=== PATIENT | male | born 1940 | race Caucasian/White ===

== ENCOUNTER 2023-02-15 11:30 | Outpatient (CLI) | payer MEDICARE, BC, SELFPAY | END 2023-02-15 11:31 | disposition home or self-care (01) | LOC: AMB 02-22 15:14 | PROVIDERS: Visit Provider Family Medicine | DX: R41.82 Altered mental status, unspecified (principal) | CPT/HCPCS: A0425; A0427 ==

== ENCOUNTER 2023-02-15 12:11 | Inpatient (IN) | payer OTHER, SELFPAY ==
[2023-02-15] VITALS (23 sets, daily range): BP systolic 135–190; BP diastolic 71–127; PULSE 77–106; RESP 18–26; TEMP 36.5–37.1; O2SAT 86–98; BMI 36.8
--- NOTE | 2023-02-15 12:21 | CRLHL7_ITS ---
For Patients: As a result of the Century Cures Act, medical imaging exams and procedure reports are released immediately into your electronic medical record. You may view this report before your referring provider. If you have questions, please contact your health care provider. Indication: Fall, erythema, pain Technique: Right knee 2 views Comparison: November 12, 2017 Impression: Right knee arthroplasty with patellar resurfacing. No evidence of periprosthetic fracture or lucency to suggest loosening. Trace knee effusion. Mild prepatellar soft tissue swelling. Dictated by Lincoln Corea MD @ 02/15/2023 3:05:57 PM (Electronically Signed)
--- NOTE | 2023-02-15 12:22 | CRLHL7_ITS ---
For Patients: As a result of the Century Cures Act, medical imaging exams and procedure reports are released immediately into your electronic medical record. You may view this report before your referring provider. If you have questions, please contact your health care provider. Indication: Fall, trauma. Technique: CT of the cervical spine performed without IV contrast. Comparison: CT cervical spine 09/15/2018. Findings: Prior mature postsurgical fusion changes at the C3-4 and C5-7 levels. Grade 1 anterolisthesis C4 on C5 and C7 on T1. Diffuse osteopenia. Vertebral body heights are maintained without evidence of fracture. Moderate degenerative pannus formation with chondrocalcinosis surrounding the C1-2 articulation. Moderate to severe multilevel spondylosis with varying degrees of spinal canal or neural foraminal stenosis. No foraminal stenosis most notable at the C6-7 level where there is severe spinal canal and neural foraminal stenosis. Minimal atelectasis visualized lung apices. No prevertebral soft tissue swelling Impression: 1. No acute fracture or traumatic subluxation. 2. Mature postsurgical osseous fusion at C3-4 and C5-7. 3. Moderate to severe multilevel spondylosis, most pronounced at C6-7. Please note that all CT scans at this facility use dose modulation, iterative reconstruction, and/or weight-based dosing when appropriate to reduce radiation dose to as low as reasonably achievable. Dictated by Brad Patel MD @ 02/15/2023 2:43:58 PM (Electronically Signed)
--- NOTE | 2023-02-15 12:22 | CRLHL7_ITS ---
For Patients: As a result of the Century Cures Act, medical imaging exams and procedure reports are released immediately into your electronic medical record. You may view this report before your referring provider. If you have questions, please contact your health care provider. Indication : Fall. Technique : CT of the brain without intravenous contrast. Comparison: CT head 09/15/2018. Findings: Motion artifact. No acute blurring of the corona-white differentiation. There is no intracranial hemorrhage. The ventricles are proportionate to the cerebral sulci. The 4th ventricle is midline. Basal cisterns appear patent. No abnormal extra-axial fluid collection identified. Mild to moderate parenchymal volume loss. There is Modic patchy periventricular hypodensity, favored to represent chronic ischemic microvascular disease. There is no intracranial mass, mass effect or midline shift identified. No depressed calvarial fracture. Moderate superficial scalp hematoma near the vertex. Impression: 1. No acute intracranial process. 2. Mild to moderate chronic ischemic microvascular disease. 3. Moderate superficial scalp hematoma near the vertex. Please note that all CT scans at this facility use dose modulation, iterative reconstruction, and/or weight-based dosing when appropriate to reduce radiation dose to as low as reasonably achievable. Dictated by Brad Patel MD @ 02/15/2023 2:38:18 PM (Electronically Signed)
--- NOTE | 2023-02-15 12:23 | CRLHL7_ITS ---
For Patients: As a result of the Century Cures Act, medical imaging exams and procedure reports are released immediately into your electronic medical record. You may view this report before your referring provider. If you have questions, please contact your health care provider. INDICATION: fall, weakness, prolonged downtime TECHNIQUE: Chest 1 views. COMPARISON: July 23, 2020 IMPRESSION: Cardiovascular and mediastinum: Stable mild cardiomegaly. Lungs and pleural spaces: Mild central vascular congestion and interstitial prominence suspicious for interstitial edema. Patchy bibasilar opacities favor atelectasis. No sign of pleural effusion. No pneumothorax. Bones and soft tissues: Bilateral shoulder arthroplasties. Dictated by Lincoln Corea MD @ 02/15/2023 3:03:56 PM (Electronically Signed)
[2023-02-15 12:47] LABS: HCO3 VBG 29 mmol/L (21-28); PCO2 VBG 45 mmHG (40-50); PO2 VBG 29.7 mmHG (25-47); pH VBG 7.415 (7.32-7.43)
[2023-02-15 12:49] LABS: Lactate* 2.1 mmol/L (0.5-1.9)
[2023-02-15 12:53] LABS: Basophils Percent Auto 0.2 % (0.0-3.0); Eosinophils Percent Auto 0.1 % (0.0-7.0); Hemoglobin* 16.5 gm/dL (13.5-17.5); Immature Granulocytes Pct Auto 0.2 %; Lymphocytes Percent Auto 4.8 % (20-44); Mean Corpuscular HGB Conc 34 gm/dL (32-36); Mean Corpuscular Hemoglobin 29 pg (26-34); Mean Corpuscular Volume 87 fL (80-100); Monocytes Percent Auto 7.2 % (0.0-11.0); Neutrophils Percent Auto 87.5 % (42.0-72.0); Platelet Count* 187 K/uL (140-440); RDW Coefficient of Variation % 13.3 % (11.5-15.5); Red Blood Count 5.62 m/uL (4.30-5.90); White Blood Count* 18.26 K/uL (4.50-11.00)
[2023-02-15 12:59] LABS: Slide Review Reflex No
--- NOTE | 2023-02-15 13:03 | ED.GENADULT ---
HPI - General Adult General Chief complaint: Fall/Minor Trauma Stated complaint: fell Time Seen by Provider: 02/15/23 12:20 History of Present Illness HPI narrative: found down by daughter this AM. last known well 48 hours ago. daughter feels that something happened prior to the fall. found in bathroom on floor. 82-year-old man presenting to the emergency department via EMS red TTA after being found down in his bathroom with the bathroom door lying on him neck at an unusual angle. Was alert. He was found in feces and urine. Last known well was 36-48 hours ago. Mr. Zamora has limited recollection of the events around this fall. EMS placed on some oxygen via nasal cannula for oxygen sats I believe around 90. He is not complaining of any pain at this time. He is arrives C-collar. Supporting his own airway and fully alert. Daughter arrives and notes how the home seemed rather disheveled as though something had been occurring prior to this fall/downtime. Related Data Home Medications Medication Instructions Recorded Confirmed amlodipine 5 mg tablet 5 mg PO DAILY 02/15/23 02/20/23 duloxetine 60 mg capsule,delayed 60 mg PO DAILY 02/15/23 02/20/23 release (Cymbalta) finasteride 5 mg tablet 5 mg PO DAILY 02/15/23 02/20/23 pantoprazole 40 mg tablet,delayed 40 mg PO DAILY 02/15/23 02/20/23 release tamsulosin 0.4 mg capsule (Flomax) 0.8 mg PO HS 02/15/23 02/20/23 acetaminophen 500 mg capsule 500 mg PO Q8H PRN 02/20/23 02/20/23 aspirin 81 mg chewable tablet 81 mg PO DAILY 02/20/23 02/20/23 (Children's Aspirin) carboxymethylcellulose sodium 0.5 1 drp ophthalmic (eye) QID PRN 02/20/23 02/20/23 % eye drops in a dropperette (Refresh Plus) clopidogrel 75 mg tablet 75 mg PO DAILY 02/20/23 02/20/23 mupirocin 2 % topical ointment 1 applic topical BID 02/20/23 02/20/23 potassium chloride 10 mEq 10 meq PO DAILY 02/20/23 02/20/23 capsule,extended release rosuvastatin 20 mg tablet 20 mg PO HS 02/20/23 02/20/23 sennosides 8.6 mg-docusate sodium 2 tab PO DAILY PRN Constipation 02/20/23 02/20/23 50 mg tablet (Stool Softener-Laxative) Previous Rx's Medication Instructions Recorded lisinopril 10 mg tablet 10 mg PO DAILY #30 tabs 02/25/23 lorazepam 0.5 mg tablet (Ativan) 0.5 mg PO QID PRN #30 tabs 02/25/23 Allergies Allergy/AdvReac Type Severity Reaction Status Date / Time No Known Drug Allergies Allergy Verified 02/20/23 20:48 Review of Systems Status of ROS: Reports: 6 or more systems reviewed and unremarkable except as noted in History and below [facility] Medical History (Updated 02/27/23 @ 00:06 by Background Daemon) Fall ?W19.XXXA - Unspecified fall, initial encounter (ICD-10) Hypertension ?I10 - Essential (primary) hypertension (ICD-10) Dementia ?F03.90 - Unspecified dementia, unspecified severity, without behavioral disturbance, psychotic disturbance, mood disturbance, and anxiety (ICD-10) Delirium ?R41.0 - Disorientation, unspecified (ICD-10) History of leukocytosis ?Z86.2 - Personal history of diseases of the blood and blood-forming organs and certain disorders involving the immune mechanism (ICD-10) Spondylolisthesis at L4-L5 level ?M43.16 - Spondylolisthesis, lumbar region (ICD-10) Acute delirium ?R41.0 - Disorientation, unspecified (ICD-10) History of falling ?Z91.81 - History of falling (ICD-10) Gait instability ?R26.81 - Unsteadiness on feet (ICD-10) Muscle weakness ?M62.81 - Muscle weakness (generalized) (ICD-10) Obstructive sleep apnea ?G47.33 - Obstructive sleep apnea (adult) (pediatric) (ICD-10) Tobacco use disorder ?F17.200 - Nicotine dependence, unspecified, uncomplicated (ICD-10) Thyroid nodule ?E04.1 - Nontoxic single thyroid nodule (ICD-10) Shoulder pain ?M25.519 - Pain in unspecified shoulder (ICD-10) Osteoarthritis of knees, bilateral ?M17.0 - Bilateral primary osteoarthritis of knee (ICD-10) Morbid obesity ?E66.01 - Morbid (severe) obesity due to excess calories (ICD-10) Iron deficiency anemia ?D50.9 - Iron deficiency anemia, unspecified (ICD-10) Impaired fasting blood sugar ?R73.01 - Impaired fasting glucose (ICD-10) Benign prostatic hyperplasia with lower urinary tract symptoms ?N40.1 - Benign prostatic hyperplasia with lower urinary tract symptoms (ICD-10) Essential hypertension ?I10 - Essential (primary) hypertension (ICD-10) Gastroesophageal reflux disease ?K21.9 - Gastro-esophageal reflux disease without esophagitis (ICD-10) Major depressive disorder ?F32.9 - Major depressive disorder, single episode, unspecified (ICD-10) Surgical History Status post left knee replacement ?Z96.652 - Presence of left artificial knee joint (ICD-10) S/P cervical spinal fusion ?Z98.1 - Arthrodesis status (ICD-10) Family History Brother Diabetes Heart disease Mother Diabetes Polio Father Polio Social History (Updated 02/21/23 @ 10:21 by Prince Oliveira MD) Narrative: Retired. more than 40 years ago. Lives alone. DNR/DNI resuscitation status. POA: Ludivina (daughter), , and Rubi (daughter), . Living independently until hospitalization earlier this week when he was transferred to [facility]. What is your current living situation?: I presently have a place to live Problems where you live: no known problems Problems where you live details: n/a In the past 12 months, utilities in danger of being shut off: no In the past 12 mos, have been you worried that your food would run out before you had money to buy more?: never true In the past 12 mos, the food you bought just didn't last and you didn't have money to buy more?: never true Highest level of school completed/degree received: high school graduate Smoking Status: Former smoker Do you use any of these nicotine containing products: None Second hand tobacco smoke exposure: No How often do you have a drink containing alcohol: 2-4 times a month How many standard drinks containing alcohol do you have on a typical day: 1 or 2 How often do you have six or more drinks on one occasion: Never AUDIT-C Alcohol total score: 2 Non-prescribed substance use: denies use Caffeine: Yes How often does anyone, including family, friends and others, physically hurt you: never How often does anyone, including family, friends and others, insult or talk down to you: never How often does anyone, including family, friends and others, threaten you with harm: never How often does anyone, including family, friends and others, scream or curse at you: never service: Yes Exam Narrative: Exam Narrative: GCS of 15. Is pleasant. Laughs appropriately to my jokes. Cranial nerves 2-12 look to be intact. Oral mucosa and lips are quite dry. I do not see trauma here. Head appears to be atraumatic. Neck is again C collared nontender to palpation through the collar. He is moving all extremities although right leg seems generally a little weaker than the others. There is no pain to palpation about the shoulder the clavicles. There is a patch of erythematous/irritated skin irregularly-shaped about 2 in in maximal diameter at the posterior right axilla. There is some remote subtle bruising small over the anterior abdomen. Is skin is stained with feces anteriorly. Examination of the back is without apparent tenderness. Looks to be evolving AA pressure ulcer stage I at the upper gluteal cleft. Some scarring in this area as well. Generally the back buttock are faintly erythematous consistent with the moisture scattered dried feculent material, smell strongly of urine across this area. Skin on the lower extremities with bilateral knee abrasions left greater than right. Right-side mid line surgical scar on the knee. No effusion. He has numerous contusions over his anterior shins right greater than left. Moderately tender to palpation about the right knee and upper tibia. Legs with good strength to resisted plantar flexion and dorsiflexion at the ankle. Raises left leg without minor difficulty.. Right leg a seems to have more difficulty maintaining. Heart is in a regular rate and rhythm. Distant. Lungs appear to be clear. He is breathing easily. Abdomen is soft overweight and nontender. No instability to pelvic pressure anteriorly. Generally stiff in movements. Const: Vital Signs, click to edit/add: Vital Signs - 24 hr 02/15/23 12:21 02/15/23 12:31 02/15/23 13:27 Temperature 97.8 F Pulse Rate 77 Pulse Rate [Right Pulse Oximeter] 80 Respiratory Rate 18 Blood Pressure 190/104 H Blood Pressure [Ri ght Upper Arm] 187/127 H Pulse Oximetry 97 98 86 L Oxygen Delivery Me thod Room Air Oxygen Flow Rate 02/15/23 13:28 02/15/23 13:30 02/15/23 13:45 Temperature Pulse Rate 88 87 83 Pulse Rate [Right Pulse Oximeter] Respiratory Rate Blood Pressure Blood Pressure [Ri ght Upper Arm] Pulse Oximetry 95 96 97 Oxygen Delivery Me thod Oxygen Flow Rate 2 2 2 02/15/23 14:00 02/15/23 14:04 02/15/23 14:05 Temperature Pulse Rate 84 86 80 Pulse Rate [Right Pulse Oximeter] Respiratory Rate 26 H Blood Pressure 171/107 H 171/107 H Blood Pressure [Ri ght Upper Arm] Pulse Oximetry 94 96 97 Oxygen Delivery Me thod Oxygen Flow Rate 2 02/15/23 14:15 02/15/23 14:30 02/15/23 14:32 Temperature Pulse Rate 82 80 87 Pulse Rate [Right Pulse Oximeter] Respiratory Rate Blood Pressure 186/110 H Blood Pressure [Ri ght Upper Arm] Pulse Oximetry 97 92 94 Oxygen Delivery Me thod Oxygen Flow Rate 02/15/23 15:03 Temperature Pulse Rate Pulse Rate [Right Pulse Oximeter] Respiratory Rate 24 Blood Pressure 181/109 H Blood Pressure [Ri ght Upper Arm] Pulse Oximetry Oxygen Delivery Me thod Oxygen Flow Rate Documenting provider has reviewed patient's vital signs: yes Course Course Hospital Course: 82-year-old male admitted to the hospital after being found down at home. He was suspected to be down at home for up to 2 days prior to admission. He was found down in the bathroom with the shower door lying on top of him. He was encephalopathic at the time. He is brought to the emergency room where a number of problems were identified. 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 This was thought to be a probable cause of his fall. Is also thought to be causing some apraxia with [id number] which he was unable to do on admission but now is able to do at the time of discharge. Also thought to be contributing to his inability to walk. He is felt to have chronic gait instability and chronic weakness and deconditioning. This had gotten worse with his stroke and being found down for 2 days. He had rhabdomyolysis without subsequent acute kidney injury. He was managed with aggressive fluid resuscitation and did well with this. He was found to have metabolic encephalopathy at the time of admission. This was thought to be due to his stroke, possible concussion, underlying dementia, acute illness. This improved during his hospital stay though he continued to have some intermittent delirium and ongoing evidence of dementia. He has bruises and abrasions from his fall as well as likely from previous falls over the past couple weeks. Abrasions over his knees were treated for cellulitis with topical mupirocin and oral cephalexin and wound care He had urinary retention with 700 mL of retained urine on admission. Initially a catheter was placed and then removed. Has been able to void since then. He has had intermittent delirium during his hospital stay. This is generally been manageable with redirection and family and nursing support. Vital Signs Vital signs: Initial Vital Signs Pulse Oximetry 97 02/15/23 12:21 Vital Signs Pulse Oximetry 97 02/15/23 12:21 Temperature 98.1 F 02/19/23 09:20 Pulse Rate 80 02/19/23 09:20 Respiratory Rate 20 02/19/23 09:20 Blood Pressure 190/94 H 02/19/23 09:20 Pulse Oximetry 97 02/19/23 07:30 Oxygen Delivery Method Room Air 02/19/23 07:30 Oxygen Flow Rate 2 02/15/23 14:00 Medical Decision Making MDM Narrative Medical decision making narrative: Surely dehydrated. This appears to have been a fall event of unclear etiology. CT in head and neck. Will check for potential cardiac etiology. Evaluating renal function. For other sources of infection and lungs and urine. Belly does appear to be nontender. At this point I am wondering if the weakness demonstrated in the right leg which initial evaluation seems to be pain free at least at the hip is more related to prolonged down time in the knee pain. Will be imaging the knee. Given potential duration of down time I have concern about rhabdomyolysis. At this point I would anticipate admission unless seems quite clear and can ambulate from the emergency department. Remains alert on reexamination. What I thought was initially symmetrical skull shape pink seems to be some bilateral soft tissue swelling without erythematous changes on the scalp. This is swelling more pronounced on the right lateral occipital area and is a little tender. I did review personally all the following images. CT of head with chronic changes. X-ray of right knee is without acute bony abnormality. Chest x-ray is without infiltrate or other acute abnormality. X-ray of pelvis is without acute abnormality - postoperative changes noted. Urinary catheter placed with 700 mL obtained Pressures remain a little elevated. Lactate is elevated, urine is concentrated, white count is rather elevated over 18,000. CPK of over 6600. Has been receiving normal saline fluid resuscitation. Troponin is slightly elevated to indeterminate though I would suspect this is more due to renal stress. Anticipate this being trended. CRP quite elevated. I have discussed with hospitalist for admission. Will need further monitoring fluid resuscitation. Possibly further imaging beyond CT head and/or depending on ability to ambulate Medical Records Medical records reviewed: Yes I reviewed the patient's medical records Lab Data Lab results reviewed: Yes I reviewed the patient's lab results Labs: Lab Results 02/15/23 02/15/23 02/15/23 Range/Units 12:27 13:00 13:45 WBC 18.26 H (4.50-11.00) K/uL RBC 5.62 (4.30-5.90) m/uL Hgb 16.5 (13.5-17.5) gm/dL Hct 49.0 (37.0-53.0) % MCV 87 (80-100) fL MCH 29 (26-34) pg MCHC 34 (32-36) gm/dL RDW Coeff of Brenda 13.3 (11.5-15.5) % Plt Count 187 (140-440) K/uL Neut % (Auto) 87.5 H (42.0-72.0) % Lymph % (Auto) 4.8 L (20-44) % Caswell % (Auto) 7.2 (0.0-11.0) % Eos % (Auto) 0.1 (0.0-7.0) % Baso % (Auto) 0.2 (0.0-3.0) % Neut # (Auto) 16.00 H (1.7-7.0) K/uL Lymph # (Auto) 0.90 (0.90-2.90) K/uL Caswell # (Auto) 1.30 H (0.00-0.90) K/UL Eos # (Auto) 0.00 (0.00-0.50) K/uL Baso # (Auto) 0.00 (0.00-0.30) K/uL Abs Immat Gran (auto) 0.00 (0.00-0.30) K/uL Imm/Tot Granulo (auto) 0.2 % INR 1.19 H (0.91-1.10) APTT 33 (23-33) Seconds VBG pH 7.415 (7.32-7.43) VBG pCO2 45 (40-50) mmHG VBG pO2 29.7 (25-47) mmHG VBG HCO3 29 H (21-28) mmol/L Sodium 144 (135-149) mmol/L Potassium 3.7 (3.6-5.1) mmol/L Chloride 108 (96-114) mmol/L Carbon Dioxide 29 (20-32) mmol/L BUN 28 (7-30) mg/dL Creatinine 0.7 (0.5-1.5) mg/dL Estimated GFR 92 ml/min Glucose 144 H (60-115) mg/dL Lactate 2.1 H (0.5-1.9) mmol/L Calcium 9.6 (8.4-10.6) mg/dL Magnesium 2.1 (1.5-2.6) mg/dL Total Bilirubin 1.6 H (0.1-1.5) mg/dL Direct Bilirubin 0.2 (0.0-0.5) mg/dL AST 301 H (12-35) U/L ALT 103 H (4-50) U/L Alkaline Phosphatase 46 (40-150) U/L Total Creatine Kinase 6646 H (54-186) U/L Troponin I 0.07 H* (0.01-0.04) ng/mL C-Reactive Protein 17.1 H (0.5-1.0) mg/dL NT-Pro-B Natriuret Pep 473 pg/mL Total Protein 8.2 (6.0-8.3) g/dL Albumin 4.3 (3.3-5.0) g/dL Lipase 56 (23-300) U/L Procalcitonin 0.18 (<0.50) ng/mL Urine Color Yellow (Yellow) Urine Appearance Clear (Clear) Urine pH 6.0 (5.0-8.5) Ur Specific [place] >= 1.030 (1.000-1.030) Urine Protein 2+ A (Negative) Urine Glucose (UA) Negative (Negative) Urine Ketones Trace A (Negative) Urine Blood Trace-lysed A (Negative) Urine Nitrite Negative (Negative) Urine Bilirubin Negative (Negative) Urine Urobilinogen 0.2 (0.2-1.0) Ur Leukocyte Esterase Negative (Negative) Urine RBC 0-2 (0-2) Urine WBC 0-2 (0-5) Ur Squamous Epith Cells Few (None-Few) Urine Bacteria Few A (None) Urine Opiates Screen Negative (Negative) Ur Oxycodone Screen Negative (Negative) Urine Methadone Screen Negative (Negative) Ur Propoxyphene Screen Negative (Negative) Ur Barbiturates Screen Negative (Negative) U Tricyclic Antidepress Negative (Negative) Ur Phencyclidine Scrn Negative (Negative) Ur Amphetamines Screen Negative (Negative) U Methamphetamines Scrn Negative (Negative) U Benzodiazepines Scrn Negative (Negative) Urine Cocaine Screen Negative (Negative) U Marijuana (THC) Screen Negative (Negative) Ur Drug Screen Comment See Note Ethyl Alcohol < 0.01 L (0.01-0.03) % ECG Data Attestation: I personally reviewed and interpreted this ECG as follows: (Sinus rhythm. PACS. Rate of 85) Critical Care Time Critical Care Time Critical Care Time: Yes Attestation: The patient required my highest level preparedness to intervene emergently and I personally spent this critical care time directly and personally managing the patient. This critical care time included: Obtaining a history; Examining the patient; Pulse oximetry; Ordering and reviewing of studies; Arranging urgent treatment with development of a management plan; Evaluation of patients response to treatment; Frequent reassessment discussions with other providers. This critical care time was performed to assess and manage the high probability of imminent life-threatening deterioration that could result in multiorgan failure. It was exclusive of separate billable procedures and treating other patients and teaching time. Total Critical Care Time in Minutes: 50 Discharge Plan Discharge Clinical Impression: Closed head injury, Rhabdomyolysis, Abrasion, Fall, AMS (altered mental status) Patient Disposition: Admitted As Observation Condition: Stable Activity Level: Up with assist and Use Walker Discharge Diet: Regular
[2023-02-15] MEDS: 0.9 % SODIUM CHLORIDE 1000 ml 1,000 ML IV ×2 (13:07→15:37)
[2023-02-15 13:16] LABS: Albumin* 4.3 g/dL (3.3-5.0); Chloride* 108 mmol/L (96-114)
[2023-02-15 13:17] LABS: Potassium* 3.7 mmol/L (3.6-5.1); Sodium* 144 mmol/L (135-149)
[2023-02-15 13:19] LABS: Alkaline Phosphatase* 46 U/L (40-150); Aspartate Amino Transferase* 301 U/L (12-35); Bilirubin Direct* 0.2 mg/dL (0.0-0.5); Bilirubin Total* 1.6 mg/dL (0.1-1.5); Blood Urea Nitrogen* 28 mg/dL (7-30); Carbon Dioxide* 29 mmol/L (20-32); Creatinine* 0.7 mg/dL (0.5-1.5); Estimated Glomerular Filt Rate 92 ml/min; Lipase* 56 U/L (23-300); Total Protein* 8.2 g/dL (6.0-8.3)
[2023-02-15 13:20] LABS: Alanine Aminotransferase* 103 U/L (4-50); Calcium* 9.6 mg/dL (8.4-10.6); Glucose* 144 mg/dL (60-115); Magnesium* 2.1 mg/dL (1.5-2.6)
[2023-02-15 13:32] LABS: INR 1.19 (0.91-1.10); Prothrombin Time 15.9 Seconds
[2023-02-15 13:33] LABS: Partial Thromboplastin Time* 33 Seconds (23-33)
[2023-02-15 13:35] LABS: Procalcitonin* 0.18 ng/mL (<0.50)
[2023-02-15 13:37] LABS: C Reactive Protein* 17.1 mg/dL (0.5-1.0); Ethanol* < 0.01 % (0.01-0.03); NT Pro B Type NatriureticPept* 473 pg/mL; Troponin I* 0.07 ng/mL (0.01-0.04)
--- NOTE | 2023-02-15 13:45 | ED.NURSE ---
was wanting to use the urinal. unable to void. bladder scanner showed [address] foley aware. smith catheter was placed and 700 ml of david urine emptied from catheter bag. did feel better after this was placed. dr foley aware of trop 0.07.
[2023-02-15 13:58] LABS: Appearance Urine Clear (Clear); Bilirubin Urine Negative (Negative); Blood Urine Trace-lysed (Negative); Color Urine Yellow (Yellow); Glucose Urine Negative (Negative); Ketones Urine Trace (Negative); Leukocyte Esterase Urine Negative (Negative); Nitrite Urine Negative (Negative); Protein Urine 2+ (Negative); Specific Gravity Urine >= 1.030 (1.000-1.030); Urobilinogen Urine 0.2 (0.2-1.0)
[2023-02-15 14:10] LABS: Amphetamine Screen Urine Negative (Negative); Barbiturate Screen Urine Negative (Negative); Benzodiazepines Screen Urine Negative (Negative); Cannabinoid Screen Urine Negative (Negative); Cocaine Screen Urine Negative (Negative); Methadone Screen Urine Negative (Negative); Methamphetamines Screen Urine Negative (Negative); Opiate Screen Urine Negative (Negative); Oxycodone Screen Urine Negative (Negative); Phencyclidine Screen Urine Negative (Negative); Tricyclic Antidepressant Urine Negative (Negative)
[2023-02-15 14:12] LABS: Creatine Kinase* 6646 U/L (54-186)
[2023-02-15 14:16] LABS: Bacteria Urine Few; RBC Urine 0-2 (0-2); Squamous Epithelial Cell Urine Few (None-Few); WBC Urine 0-2 (0-5)
--- NOTE | 2023-02-15 15:43 | CRLHL7_ITS ---
For Patients: As a result of the Century Cures Act, medical imaging exams and procedure reports are released immediately into your electronic medical record. You may view this report before your referring provider. If you have questions, please contact your health care provider. INDICATION: Altered mental status. TECHNIQUE: Brain MRI without contrast. The following sequences were obtained: Sagittal T1 weighted sequence. DWI and ADC mapping sequences. Axial FLAIR and BRANNON T2 weighted sequences. COMPARISON: Head CT from 02/16/2020 FINDINGS: Punctate focus of diffusion restriction within the left mid centrum semiovale, likely an acute or subacute infarct. No recent ischemia elsewhere within the brain. No evidence of acute or chronic intracranial blood products. Patchy FLAIR hyperintensities within the supratentorial white matter and brainstem, as well as hazy ill-defined T2 hyperintensity within the bilateral cerebellar hemispheres. No mass effect or herniation. No hydrocephalus or extra-axial collections. Moderate generalized parenchymal volume loss. The pituitary gland, parasellar structures and optic chiasm are normal. All the major intracranial vascular structures demonstrate normal flow-related signal. The orbital contents are normal. No calvarial or skull base marrow replacing process. No obstructive sinus disease. Bilateral subgaleal fluid collections which may reflect 3rd spacing. IMPRESSION: 1. 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 No recent ischemia elsewhere within the brain. 2. Patchy FLAIR hyperintensities within the supratentorial white matter, brainstem and cerebellum. Differential considerations include chronic small vessel ischemic change, versus sequela of an inflammatory or demyelinating process. 3. Overall moderate generalized parenchymal volume loss. 4. Bilateral subgaleal fluid collections, which may reflect 3rd spacing. Dictated by Mal Elder MD @ 02/15/2023 6:48:09 PM (Electronically Signed)
--- NOTE | 2023-02-15 15:45 | ED.NURSE ---
c collar off. 02 off. sats staying above 94%. took water -2 glasses. iv in lac is positional. is alert and does converse. rr ~16-24.
--- NOTE | 2023-02-15 16:15 | ED.NURSE ---
has approx 150 ml of ns left in bag. went to mri on air mattress snow remover. will go directly to [facility] from [facility]ri. is alert and talking. both daughters are here and will await in his m/s room. dr zimmerman was in and has accepted him for admission.
--- NOTE | 2023-02-15 16:28 | ED.NURSE ---
report was gven to anirudh redding on m/s. will go to 249 after mri.
--- NOTE | 2023-02-15 17:45 | P.IMHP_ITS ---
Hospitalist- H&P: HPI History of Present Illness Time Seen by Provider: 16:00 Date Seen: 02/15/23 Chief complaint: AMS, amnesia, rhabomyolysis, dehydration Narrative: Ken Zamora is a 82 year old man presents via EMS after having been found by his daughter in his home on the bathroom floor around 11:00 a.m. this morning with altered mental status, covered in feces and urine. Reportedly was in his usual state of health up until about 48 hours prior to having been found in his home on the bathroom floor. Patient has no recollection of actually falling. His daughter had not heard from him for about 48 hours and thus went to check up on him in found him on the bathroom floor covered in feces and urine. She summoned EMS who brought him in promptly. He was laying on his back. The shower door was on top of him. The shower chair somehow was blocking the entrance to the bathroom. Patient does not recall any of this. Not sure how he got help to come to the hospital. Not sure how he got to the hospital. Tries to answer questions but slow to respond. He tells me he thinks he fell somewhere in the house. He is not sure if it was the bedroom. He is not sure if it was today. Tells me his knees hurt. Does not hurt anywhere else. Tells me he is weak in his knees. He tells me his memory is pretty good. He thinks he may have watch the [employer] game on Saturday but he is not sure if he did or not. Does not know who the [employer] plate. Does not remember the outcome of the game. Had a fairly resourceful assessment in the emergency department with no acute bony fractures including his knee. Creatine kinase elevated at 6600. Patient is admitted for further management and assessment. Review of Systems Status of ROS: Reports: 10 or more systems reviewed and unremarkable except as noted in History and below Narrative: Patient is slow to answer questions. Sometimes looks to his daughter, Ludivina, to help him answer questions. Daughter, Ludivina, indicates that when she walked into the patient's home, the living room was in relative disarray. The bar stools in the kitchen area were out of place. This is unusual for the patient because he likes things precisely placed in his home. The bathroom itself was in total disarray. She indicates she had been trying to calm but he went answer. She finally came over and found him as stated above. She immediately called the EMS who came promptly. He denies chest heaviness, pressure, tightness, or pain. Denies syncope or near-syncope. Denies orthostasis on the 1 hand on the other hand he is not able to sit up enough because he is so weak. Denies nausea or vomiting. Denies abdominal pain. Only pain that he has is in his knees. He is known to have ch ronic knee pain. Acknowledge E has not ate or drank for while he is not sure for how long. Denies exposure to alcohol or any other drugs. Denies palpitations or chest fluttering. Denies dyspnea, cough. Denies focal motor neurologic deficits although he states his knees are weak. Denies diarrhea or constipation. Denies dysuria, urgency, frequency, hematuria. Denies polyuria or polydipsia or polyphagia. Denies fevers, rigors, diaphoresis. As I review his medical record his weight in 2019 was listed as 129.3 kg with a BMI of 41. In 2021 his weight was listed as 121.8 kg with a BMI of 37. Patient states he was not trying to lose weight. Claims his appetite is stable. Acknowledges chronic dyspepsia which he treats with a proton pump inhibitor. Denies dysphagia or odynophagia. [facility] Medical History (Updated 02/15/23 @ 18:08 by Chandana Nelson MD) History of leukocytosis ?Z86.2 - Personal history of diseases of the blood and blood-forming organs and certain disorders involving the immune mechanism (ICD-10) Spondylolisthesis at L4-L5 level ?M43.16 - Spondylolisthesis, lumbar region (ICD-10) Acute delirium ?R41.0 - Disorientation, unspecified (ICD-10) History of falling ?Z91.81 - History of falling (ICD-10) Gait instability ?R26.81 - Unsteadiness on feet (ICD-10) Muscle weakness ?M62.81 - Muscle weakness (generalized) (ICD-10) Obstructive sleep apnea ?G47.33 - Obstructive sleep apnea (adult) (pediatric) (ICD-10) Tobacco use disorder ?F17.200 - Nicotine dependence, unspecified, uncomplicated (ICD-10) Thyroid nodule ?E04.1 - Nontoxic single thyroid nodule (ICD-10) Shoulder pain ?M25.519 - Pain in unspecified shoulder (ICD-10) Osteoarthritis of knees, bilateral ?M17.0 - Bilateral primary osteoarthritis of knee (ICD-10) Morbid obesity ?E66.01 - Morbid (severe) obesity due to excess calories (ICD-10) Iron deficiency anemia ?D50.9 - Iron deficiency anemia, unspecified (ICD-10) Impaired fasting blood sugar ?R73.01 - Impaired fasting glucose (ICD-10) Benign prostatic hyperplasia with lower urinary tract symptoms ?N40.1 - Benign prostatic hyperplasia with lower urinary tract symptoms (ICD- 10) Essential hypertension ?I10 - Essential (primary) hypertension (ICD-10) Gastroesophageal reflux disease ?K21.9 - Gastro-esophageal reflux disease without esophagitis (ICD-10) Major depressive disorder ?F32.9 - Major depressive disorder, single episode, unspecified (ICD-10) Surgical History (Updated 02/15/23 @ 17:36 by Chandana Nelson MD) Status post left knee replacement ?Z96.652 - Presence of left artificial knee joint (ICD-10) S/P cervical spinal fusion ?Z98.1 - Arthrodesis status (ICD-10) Family History (Updated 02/15/23 @ 17:38 by Chandana Nelson MD) Brother Diabetes Heart disease Mother Diabetes Polio Father Polio Social History (Updated 02/15/23 @ 17:41 by Chandana Nelson MD) Narrative: Retired. more than 40 years ago. Lives alone. DNR/DNI resuscitation status. POA: Ludivina (daughter), , and Rubi (daughter), . Smoking Status: Former smoker Do you use any of these nicotine containing products: None Second hand tobacco smoke exposure: No How often do you have a drink containing alcohol: 2-4 times a month How many standard drinks containing alcohol do you have on a typical day: 1 or 2 How often do you have six or more drinks on one occasion: Never AUDIT-C Alcohol total score: 2 Non-prescribed substance use: denies use service: Yes Meds Home Medications and Allergies Home Medications Medication Instructions Recorded Confirmed Type amlodipine 5 mg tablet 5 mg PO DAILY 02/15/23 02/15/23 History duloxetine 60 mg capsule,delayed 60 mg PO DAILY 02/15/23 02/15/23 History release (Cymbalta) finasteride 5 mg tablet 5 mg PO DAILY 02/15/23 02/15/23 History pantoprazole 40 mg tablet,delayed 40 mg PO DAILY 02/15/23 02/15/23 History release tamsulosin 0.4 mg capsule (Flomax) 0.8 mg PO HS 02/15/23 02/15/23 History Allergies Allergy/AdvReac Type Severity Reaction Status Date / Time No Known Drug Allergies Allergy Verified 02/15/23 12:34 Exam Narrative: Exam Narrative: Examine him as he is in the semi recumbent position on the exam table in the emergency department. He appears comfortable and in no acute distress. Vision and hearing are grossly normal. Very slow to respond to dialogue and questions. Sometimes looks to his daughter to help answer questions for him. Normal tympanic membranes bilaterally. Midline nasal septum. Mallampati class 4 airway. Dentition in fair repair. Buccal mucosa is dry. Does not have icterus or conjunctival injection. Extraocular muscles are intact. Pupils are equally round react to light and accommodation. Neck is supple. Midline trachea. No obvious JVD or hepatojugular reflux. Full neck. No head and neck lymphadenopathy. Lungs are fairly clear to auscultation without obvious wheezing, rhonchi, or rales. Heart tones with regular rhythm with occasional extra beat. Soft systolic murmur. No gallop or rub. Abdomen is obese with active bowel sounds, soft, nontender. No organomegaly or masses. Extremities without edema. Multiple areas of contusions and ecchymosis on the shins of both legs. Palpable pulses on dorsalis pedis and posterior tib bilaterally. Capillary refill less than 3 seconds in upper and lower extremities. Able to move upper and lower extremities. Shakes when tries to move and hold position for too long. Const: Vital Signs, click to edit/add: Vital Signs - 24 hr 02/15/23 12:21 02/15/23 12:31 02/15/23 13:27 Temperature 97.8 F Pulse Rate 77 Pulse Rate [Right Pulse Oximeter] 80 Respiratory Rate 18 Blood Pressure 190/104 H Blood Pressure [Ri ght Upper Arm] 187/127 H Pulse Oximetry 97 98 86 L Oxygen Delivery Me thod Room Air Oxygen Flow Rate 02/15/23 13:28 02/15/23 13:30 02/15/23 13:45 Temperature Pulse Rate 88 87 83 Pulse Rate [Right Pulse Oximeter] Respiratory Rate Blood Pressure Blood Pressure [Ri ght Upper Arm] Pulse Oximetry 95 96 97 Oxygen Delivery Me thod Oxygen Flow Rate 2 2 2 02/15/23 14:00 02/15/23 14:04 02/15/23 14:05 Temperature Pulse Rate 84 86 80 Pulse Rate [Right Pulse Oximeter] Respiratory Rate 26 H Blood Pressure 171/107 H 171/107 H Blood Pressure [Ri ght Upper Arm] Pulse Oximetry 94 96 97 Oxygen Delivery Me thod Oxygen Flow Rate 2 02/15/23 14:15 02/15/23 14:30 02/15/23 14:32 Temperature Pulse Rate 82 80 87 Pulse Rate [Right Pulse Oximeter] Respiratory Rate Blood Pressure 186/110 H Blood Pressure [Ri ght Upper Arm] Pulse Oximetry 97 92 94 Oxygen Delivery Me thod Oxygen Flow Rate 02/15/23 15:03 02/15/23 15:32 02/15/23 15:36 Temperature Pulse Rate 86 Pulse Rate [Right Pulse Oximeter] Respiratory Rate 24 Blood Pressure 181/109 H 163/110 H Blood Pressure [Ri ght Upper Arm] Pulse Oximetry 98 Oxygen Delivery Me thod Oxygen Flow Rate 02/15/23 15:49 02/15/23 16:00 02/15/23 16:03 Temperature Pulse Rate 84 77 83 Pulse Rate [Right Pulse Oximeter] Respiratory Rate 24 Blood Pressure 162/112 H Blood Pressure [Ri ght Upper Arm] Pulse Oximetry 94 93 96 Oxygen Delivery Me thod Oxygen Flow Rate 02/15/23 16:15 Temperature Pulse Rate 81 Pulse Rate [Right Pulse Oximeter] Respiratory Rate Blood Pressure Blood Pressure [Ri ght Upper Arm] Pulse Oximetry 96 Oxygen Delivery Me thod Oxygen Flow Rate Hospitalist - H&P: Result Labs Labs: Short CBC 02/15/23 Range/Units 12:27 WBC 18.26 H (4.50-11.00) K/uL Hgb 16.5 (13.5-17.5) gm/dL Hct 49.0 (37.0-53.0) % Plt Count 187 (140-440) K/uL BMP 02/15/23 13:00 Sodium 144 Potassium 3.7 Chloride 108 Carbon Dioxide 29 BUN 28 Creatinine 0.7 Glucose 144 H Calcium 9.6 Cardiac Enzymes 02/15/23 Range/Units 13:00 Total Creatine Kinase 6646 H (54-186) U/L Troponin I 0.07 H* (0.01-0.04) ng/mL Liver Function 02/15/23 Range/Units 13:00 Total Bilirubin 1.6 H (0.1-1.5) mg/dL Direct Bilirubin 0.2 (0.0-0.5) mg/dL AST 301 H (12-35) U/L ALT 103 H (4-50) U/L Alkaline Phosphatase 46 (40-150) U/L Albumin 4.3 (3.3-5.0) g/dL Urine 02/15/23 Range/Units 13:45 Urine Color Yellow (Yellow) Urine Appearance Clear (Clear) Urine pH 6.0 (5.0-8.5) Ur Specific [place] >= 1.030 (1.000-1.030) Urine Protein 2+ A (Negative) Urine Glucose (UA) Negative (Negative) ECG Attestation: I personally reviewed and interpreted this ECG as follows: ECG interpretation date: 02/15/23 ECG interpretation time: 16:00 Interpretation: Normal sinus rhythm with occasional APCs. Early signs of LVH by ECG criteria. Imaging Chest x-ray: Attestation: I have reviewed the pertinent imaging results. Radiologist's impression: IMPRESSION: Cardiovascular and mediastinum: Stable mild cardiomegaly. Lungs and pleural spaces: Mild central vascular congestion and interstitial prominence suspicious for interstitial edema. Patchy bibasilar opacities favor atelectasis. No sign of pleural effusion. No pneumothorax. Bones and soft tissues: Bilateral shoulder arthroplasties. Right knee x-ray: Attestation: I have reviewed the pertinent imaging results. Radiologist's impression: Impression: Right knee arthroplasty with patellar resurfacing. No evidence of periprosthetic fracture or lucency to suggest loosening. Trace knee effusion. Mild prepatellar soft tissue swelling. CT scan - head: Attestation: I have reviewed the pertinent imaging results. Radiologist's impression: Impression: 1. No acute intracranial process. 2. Mild to moderate chronic ischemic microvascular disease. 3. Moderate superficial scalp hematoma near the vertex. CT scan - cervical spine: Attestation: I have reviewed the pertinent imaging results. Radiologist's impression: Impression: 1. No acute fracture or traumatic subluxation. 2. Mature postsurgical osseous fusion at C3-4 and C5-7. 3. Moderate to severe multilevel spondylosis, most pronounced at C6-7. Assessment and Plan Assessment and plan (1) AMS (altered mental status): Status: Acute (2) Amnesia: Status: Acute (3) Closed head injury: Status: Acute (4) Rhabdomyolysis: Status: Acute (5) Abrasion: Status: Acute (6) Fall: Status: Acute (7) Dehydration: Status: Acute (8) Elevated levels of transaminase & lactic acid dehydrogenase: Status: Acute (9) Urinary retention: Problem comment: 700 ml in ED 02/15/2023 Status: Acute (10) Leukocytosis, unspecified: Problem comment: Unclear if this is acute or chronic given history of leukocytosis in the past. Status: Acute (11) Progressive cognitive dysfunction: Status: Acute (12) Progressive gait disorder: Status: Acute Plan 1. Reviewed impression with patient, daughter, Ludivina, daughter Rubi. 2. Answered their questions. 3. Recommended admission to the hospital and hydration with normal saline. Need to monitor urine output. Need to monitor renal function status given high likelihood for acute kidney failure in this setting. 4. We will recheck urinalysis with microscopic analysis in the morning. 5. Recheck CBC, lactate, various chemistry studies, venous blood gas, creatine kinase, TSH, hemoglobin A1c. 6. Telemetry, electrocardiogram, troponin I, and consider transthoracic echocardiogram. 7. Physical therapy, occupational therapy, social human services assistants consultation. 8. Anticipate patient will need transitional care services in [facility] facility at time he is ready for discharge from the hospital. Shared this with patient daughters and they are agreeable. 9. Await results of MR scan of the brain without contrast that was obtained prior to patient transfer to the floor. 10. Urine culture and blood cultures are obtained. 11. Patient and daughters are agreeable to above stated plans and recommendations.
[2023-02-15 17:57] LABS: HCO3 VBG 26 mmol/L (21-28); Lactate* 1.7 mmol/L (0.5-1.9); PCO2 VBG 39 mmHG (40-50); PO2 VBG 41.7 mmHG (25-47); pH VBG 7.437 (7.32-7.43)
[2023-02-15 18:39] LABS: Creatine Kinase* 5193 U/L (54-186)
[2023-02-15 18:40] LABS: Troponin I* 0.07 ng/mL (0.01-0.04)
[2023-02-15] MEDS: 0.9 % SODIUM CHLORIDE 1000 ml 1,000 ML 125 ML IV (20:00)
[2023-02-15] MEDS: TAMSULOSIN HCL 0.4 MG CAPSULE 0.8 MG PO (20:01)
[2023-02-15] MEDS: SODIUM CHLORIDE 0.9 % (FLUSH) 10 ML SYRINGE 5 ML IVF (20:01)
[2023-02-15] MEDS: ACETAMINOPHEN 325 MG TABLET 650 MG PO (21:45)
--- NOTE | 2023-02-15 23:38 | PC.NURSE ---
Patient admitted to the unit at 1712. A&Ox3 with periodic forgetfulness/confusion. Jha intact. Weak and fatigued. Daughters Elana and Rubi at bedside and supportive. Mepilex applied to large skin tear on L. buttock. Abrasions on bilateral knees cleaned and covered with non-adherent tefla. Multiple bruises on bilateral shins and arms/hands [employer]. Patient remained on bedrest during shift. Denies N/V/SOB/CP. PRN Tylenol administered for generalized discomfort.
[2023-02-16 03:15] VITALS: BP 120/89; PULSE 84; RESP 18; TEMP 36.9; O2SAT 89
[2023-02-16] MEDS: 0.9 % SODIUM CHLORIDE 1000 ml 1,000 ML 125 ML IV ×3 (03:15→19:17)
[2023-02-16 06:22] LABS: HCO3 VBG 26 mmol/L (21-28); Lactate* 0.9 mmol/L (0.5-1.9); PCO2 VBG 40 mmHG (40-50); PO2 VBG 52.6 mmHG (25-47); pH VBG 7.421 (7.32-7.43)
[2023-02-16 06:28] LABS: Hematocrit 42.4 % (37.0-53.0); Hemoglobin* 13.9 gm/dL (13.5-17.5); Mean Corpuscular HGB Conc 33 gm/dL (32-36); Mean Corpuscular Hemoglobin 29 pg (26-34); Mean Corpuscular Volume 89 fL (80-100); Platelet Count* 144 K/uL (140-440); Red Blood Count 4.75 m/uL (4.30-5.90); White Blood Count* 12.71 K/uL (4.50-11.00)
[2023-02-16 06:32] LABS: Slide Review Reflex No
[2023-02-16 06:42] LABS: Albumin* 3.3 g/dL (3.3-5.0); Chloride* 111 mmol/L (96-114); Sodium* 143 mmol/L (135-149)
[2023-02-16 06:43] LABS: Potassium* 3.5 mmol/L (3.6-5.1)
[2023-02-16 06:45] LABS: Alkaline Phosphatase* 37 U/L (40-150); Aspartate Amino Transferase* 182 U/L (12-35); Bilirubin Total* 1.1 mg/dL (0.1-1.5); Carbon Dioxide* 27 mmol/L (20-32); Creatinine* 0.8 mg/dL (0.5-1.5); Est. Creatinine Clearance* 62.51; Estimated Glomerular Filt Rate 88 ml/min; Total Protein* 6.6 g/dL (6.0-8.3)
[2023-02-16 06:46] LABS: Alanine Aminotransferase* 84 U/L (4-50); Blood Urea Nitrogen* 32 mg/dL (7-30); Calcium* 8.7 mg/dL (8.4-10.6); Glucose* 115 mg/dL (60-115); Lipase* 58 U/L (23-300); Magnesium* 2.2 mg/dL (1.5-2.6); Phosphorus* 3.2 mg/dL (2.5-4.5)
[2023-02-16 07:00] VITALS: BP 157/88; PULSE 82; RESP 18; TEMP 37.1; O2SAT 90
[2023-02-16 07:09] LABS: Appearance Urine Clear (Clear); Bilirubin Urine 1+ (Negative); Blood Urine 1+ (Negative); Color Urine Orange (Yellow); Glucose Urine Negative (Negative); Ketones Urine Negative (Negative); Leukocyte Esterase Urine Trace (Negative); Nitrite Urine Negative (Negative); Protein Urine 1+ (Negative); Specific Gravity Urine 1.025 (1.000-1.030); Urobilinogen Urine 0.2 (0.2-1.0)
[2023-02-16 07:27] LABS: C Reactive Protein* 12.8 mg/dL (0.5-1.0); Troponin I* 0.07 ng/mL (0.01-0.04)
[2023-02-16 07:28] LABS: RBC Urine 0-2 (0-2); WBC Urine 0-2 (0-5)
[2023-02-16] MEDS: OMEPRAZOLE 20 MG CAPSULE DR 40 MG PO (07:29)
--- NOTE | 2023-02-16 07:29 | PC.NURSE ---
Pt denies pain or discomfort. Slept soundly waking only for vitals and repositioning. Jha patent and draining. Pt is able to answer basic questions but doesn't not remember events leading up to admission.
[2023-02-16 07:38] LABS: INR 1.23 (0.91-1.10); Prothrombin Time 16.2 Seconds
[2023-02-16 08:30] LABS: Creatine Kinase* 2501 U/L (54-186)
[2023-02-16] MEDS: DULOXETINE 30 MG CAPSULE DR 60 MG PO (09:02)
[2023-02-16] MEDS: AMLODIPINE 5 MG TABLET PO (09:03)
[2023-02-16] MEDS: SODIUM CHLORIDE 0.9 % (FLUSH) 10 ML SYRINGE 5 ML IVF (09:03)
[2023-02-16] MEDS: FINASTERIDE 5 MG TABLET PO (09:03)
[2023-02-16] MEDS: ASPIRIN 81 MG TAB.CHEW PO (10:22)
[2023-02-16] MEDS: CLOPIDOGREL 75 MG TABLET PO (10:22)
[2023-02-16] MEDS: ACETAMINOPHEN 325 MG TABLET 650 MG PO ×2 (10:30→17:24)
[2023-02-16 10:42] VITALS: BP 122/59; PULSE 92; RESP 18; TEMP 37.1; O2SAT 91
--- NOTE | 2023-02-16 12:15 | P.IMPN_ITS ---
Progress Note: A&P Assessment and plan (1) AMS (altered mental status): Problem details: Altered mental status likely due to acute illness plus underlying cognitive impairment plus acute stroke Status: Acute (2) Amnesia: Problem details: Related to altered mental status and acute stroke and underlying cognitive impairment Status: Acute (3) Closed head injury: Status: Acute (4) Rhabdomyolysis: Problem details: Due to being found down for as long as 48 hours on the bathroom floor. Improving with fluid resuscitation. No obvious acute kidney injury. Status: Acute (5) Abrasion: Problem details: Multiple bruises and abrasions of different ages. According to family he had a fall 2 weeks ago as well. Status: Acute (6) Fall: Problem details: Recurrent problem. Weakness and poor balance likely contributing. Now new stroke also likely contributing. Therapy to evaluate. Probably needs rehab stay. Status: Acute (7) Dehydration: Status: Acute (8) Elevated levels of transaminase & lactic acid dehydrogenase: Status: Acute (9) Urinary retention: Problem details: 700 ml in ED 02/15/2023 Status: Acute (10) Leukocytosis, unspecified: Problem details: Unclear if this is acute or chronic given history of leukocytosis in the past. Status: Acute (11) Progressive cognitive dysfunction: Status: Acute (12) Progressive gait disorder: Status: Acute (13) Stroke: Problem details: Likely the primary trigger for the fall and subsequent confusion. Status: Acute Plan Patient is admitted the hospital for evaluation management of stroke, rhabdomyolysis, profound weakness and mental status changes. Probably needs prison facility before returning home. Time Spent With Patient Total time spent: Total time spent today is 50 minutes, 30 minutes in coordination of care discussing with patient and family ongoing evaluation management of stroke and weakness. Subjective Date Seen: 02/16/23 Interval history: 82-year-old male admitted to the hospital after being found down for at least a couple days at home. I meet with him today with his family also present. They give mostly history is the patient does not really recall the events leading up to his hospital stay. He was found down at home in the bathroom with incontinence of urine and stool. His daughter found him conscious but confused. They believe that he fell 1 or 2 times. They found furniture knocked over in other rooms of the house besides the bathroom indicating that he had fallen elsewhere. He was last seen to be doing fine 48 hours prior to admission. Evaluation on admission was notable for profound weakness, marked elevation of his CPK, mild elevation of his troponin, profound weakness, altered mental status and small stroke on MRI. Patient reports feeling fine today. He does acknowledges legs are weak. This has been a longstanding problem. Lives independently in a home with no stairs. He normally does not use assistive device to get around his home but does use a walker when he leaves the house. He continues to drive. Family indicates that prior to this episode he was having some problems with forgetfulness as well. Family is also suspecting sleep apnea. They have a talk to the [facility] about getting evaluation. This is apparently pending a few months in the future. Today he reports no chest pain or shortness of breath. He has had no fever. He is eating well. He reports generalized pain and fatigue. Exam Narrative: Exam Narrative: He is alert and appears in no distress. His speech is normal. Eyes are normal. Extraocular movements are full. Visual nolen are intact. No facial asymmetry. Intact sensation in his face. Oropharynx is normal except for small airway. Tongue is midline. Neck is supple without mass or adenopathy. Respirations are clear to auscultation. Cardiovascular: S1, S2, regular rate and rhythm. Abdomen: Bowel sounds active. Abdomen is soft without tenderness or mass. Extremities without significant edema. Upper extremity strength testing shows mild weakness of the right upper extremity with some slow in a set initiating movements. Left upper extremity has mild diffuse weakness. He has some discomfort with strength testing suggesting that his weakness might be due to the discomfort. Only mildly weaker than the right side. He is unable to do [id number] with the left and performs normally with the right. Lower extremities bilaterally weak. He has trouble following instructions for strength testing in his lower extremities. Cannot access his hip flexion. Knee flexion extension is approximately equal though bilaterally week. Ankle dorsiflexion plantar flexion is symmetric. Great toe dorsiflexion symmetric and full. Const: Vital Signs, click to edit/add: Vital Signs - 24 hr 02/15/23 12:21 02/15/23 12:31 02/15/23 13:27 Temperature 97.8 F Pulse Rate 77 Pulse Rate [Pulse Oximeter] Pulse Rate [Right Pulse Oximeter] 80 Respiratory Rate 18 Blood Pressure 190/104 H Blood Pressure [Ri ght Arm] Blood Pressure [Ri ght Upper Arm] 187/127 H Pulse Oximetry 97 98 86 L Oxygen Delivery Me thod Room Air Oxygen Flow Rate 02/15/23 13:28 02/15/23 13:30 02/15/23 13:45 Temperature Pulse Rate 88 87 83 Pulse Rate [Pulse Oximeter] Pulse Rate [Right Pulse Oximeter] Respiratory Rate Blood Pressure Blood Pressure [Ri ght Arm] Blood Pressure [Ri ght Upper Arm] Pulse Oximetry 95 96 97 Oxygen Delivery Me thod Oxygen Flow Rate 2 2 2 02/15/23 14:00 02/15/23 14:04 02/15/23 14:05 Temperature Pulse Rate 84 86 80 Pulse Rate [Pulse Oximeter] Pulse Rate [Right Pulse Oximeter] Respiratory Rate 26 H Blood Pressure 171/107 H 171/107 H Blood Pressure [Ri ght Arm] Blood Pressure [Ri ght Upper Arm] Pulse Oximetry 94 96 97 Oxygen Delivery Me thod Oxygen Flow Rate 2 02/15/23 14:15 02/15/23 14:30 02/15/23 14:32 Temperature Pulse Rate 82 80 87 Pulse Rate [Pulse Oximeter] Pulse Rate [Right Pulse Oximeter] Respiratory Rate Blood Pressure 186/110 H Blood Pressure [Ri ght Arm] Blood Pressure [Ri ght Upper Arm] Pulse Oximetry 97 92 94 Oxygen Delivery Me thod Oxygen Flow Rate 02/15/23 15:03 02/15/23 15:32 02/15/23 15:36 Temperature Pulse Rate 86 Pulse Rate [Pulse Oximeter] Pulse Rate [Right Pulse Oximeter] Respiratory Rate 24 Blood Pressure 181/109 H 163/110 H Blood Pressure [Ri ght Arm] Blood Pressure [Ri ght Upper Arm] Pulse Oximetry 98 Oxygen Delivery Me thod Oxygen Flow Rate 02/15/23 15:49 02/15/23 16:00 02/15/23 16:03 Temperature Pulse Rate 84 77 83 Pulse Rate [Pulse Oximeter] Pulse Rate [Right Pulse Oximeter] Respiratory Rate 24 Blood Pressure 162/112 H Blood Pressure [Ri ght Arm] Blood Pressure [Ri ght Upper Arm] Pulse Oximetry 94 93 96 Oxygen Delivery Me thod Oxygen Flow Rate 02/15/23 16:15 02/15/23 19:19 02/15/23 19:25 Temperature 98.8 F 97.8 F Pulse Rate 81 Pulse Rate [Pulse Oximeter] 106 H 84 Pulse Rate [Right Pulse Oximeter] Respiratory Rate 22 20 Blood Pressure Blood Pressure [Ri ght Arm] 135/73 152/102 H Blood Pressure [Ri ght Upper Arm] Pulse Oximetry 96 90 90 Oxygen Delivery Me thod Room Air Room Air Oxygen Flow Rate 02/15/23 19:25 02/15/23 19:30 02/15/23 23:30 Temperature Pulse Rate 106 H 86 Pulse Rate [Pulse Oximeter] Pulse Rate [Right Pulse Oximeter] Respiratory Rate 20 Blood Pressure Blood Pressure [Ri ght Arm] Blood Pressure [Ri ght Upper Arm] Pulse Oximetry 90 Oxygen Delivery Me thod Room Air Oxygen Flow Rate 02/15/23 23:30 02/15/23 23:30 02/16/23 03:15 Temperature 97.7 F 98.4 F Pulse Rate Pulse Rate [Pulse Oximeter] 81 84 Pulse Rate [Right Pulse Oximeter] Respiratory Rate 20 20 18 Blood Pressure Blood Pressure [Ri ght Arm] 138/71 120/89 Blood Pressure [Ri ght Upper Arm] Pulse Oximetry 89 89 89 Oxygen Delivery Me thod Room Air Room Air Room Air Oxygen Flow Rate 02/16/23 07:00 02/16/23 07:00 02/16/23 07:00 Temperature Pulse Rate 82 Pulse Rate [Pulse Oximeter] 82 Pulse Rate [Right Pulse Oximeter] Respiratory Rate 18 18 Blood Pressure Blood Pressure [Ri ght Arm] Blood Pressure [Ri ght Upper Arm] Pulse Oximetry 90 Oxygen Delivery Me thod Room Air Oxygen Flow Rate 02/16/23 07:00 02/16/23 10:42 Temperature 98.7 F 98.7 F Pulse Rate Pulse Rate [Pulse Oximeter] 82 92 Pulse Rate [Right Pulse Oximeter] Respiratory Rate 18 18 Blood Pressure Blood Pressure [Ri ght Arm] 157/88 H 122/59 L Blood Pressure [Ri ght Upper Arm] Pulse Oximetry 90 91 Oxygen Delivery Me thod Room Air Room Air Oxygen Flow Rate Documenting provider has reviewed patient's vital signs: yes Labs Labs: Laboratory Results - last 24 hr 02/15/23 02/15/23 02/15/23 12:27 13:00 13:45 WBC 18.26 H RBC 5.62 Hgb 16.5 Hct 49.0 MCV 87 MCH 29 MCHC 34 RDW Coeff of Brenda 13.3 Plt Count 187 Neut % (Auto) 87.5 H Lymph % (Auto) 4.8 L [place] % (Auto) 7.2 Eos % (Auto) 0.1 Baso % (Auto) 0.2 Neut # (Auto) 16.00 H Lymph # (Auto) 0.90 [place] # (Auto) 1.30 H Eos # (Auto) 0.00 Baso # (Auto) 0.00 Abs Immat Gran (auto) 0.00 Imm/Tot Granulo (auto) 0.2 INR 1.19 H APTT 33 VBG pH 7.415 VBG pCO2 45 VBG pO2 29.7 VBG HCO3 29 H Sodium 144 Potassium 3.7 Chloride 108 Carbon Dioxide 29 BUN 28 Creatinine 0.7 Estimated Creat Clear Estimated GFR 92 Glucose 144 H Lactate 2.1 H Calcium 9.6 Phosphorus Magnesium 2.1 Total Bilirubin 1.6 H Direct Bilirubin 0.2 AST 301 H ALT 103 H Alkaline Phosphatase 46 Total Creatine Kinase 6646 H Troponin I 0.07 H* C-Reactive Protein 17.1 H NT-Pro-B Natriuret Pep 473 Total Protein 8.2 Albumin 4.3 Lipase 56 Procalcitonin 0.18 TSH Urine Color Yellow Urine Appearance Clear Urine pH 6.0 Ur Specific [place] >= 1.030 Urine Protein 2+ A Urine Glucose (UA) Negative Urine Ketones Trace A Urine Blood Trace-lysed A Urine Nitrite Negative Urine Bilirubin Negative Urine Urobilinogen 0.2 Ur Leukocyte Esterase Negative Urine RBC 0-2 Urine WBC 0-2 Ur Squamous Epith Cells Few Urine Bacteria Few A Urine Opiates Screen Negative Ur Oxycodone Screen Negative Urine Methadone Screen Negative Ur Propoxyphene Screen Negative Ur Barbiturates Screen Negative U Tricyclic Antidepress Negative Ur Phencyclidine Scrn Negative Ur Amphetamines Screen Negative U Methamphetamines Scrn Negative U Benzodiazepines Scrn Negative Urine Cocaine Screen Negative U Marijuana (THC) Screen Negative Ur Drug Screen Comment See Note Ethyl Alcohol < 0.01 L Lab Acknowledgement 02/15/23 02/16/23 02/16/23 17:58 06:00 06:17 WBC 12.71 H RBC 4.75 Hgb 13.9 Hct 42.4 MCV 89 MCH 29 MCHC 33 RDW Coeff of Brenda Plt Count 144 Neut % (Auto) Lymph % (Auto) [place] % (Auto) Eos % (Auto) Baso % (Auto) Neut # (Auto) Lymph # (Auto) [place] # (Auto) Eos # (Auto) Baso # (Auto) Abs Immat Gran (auto) Imm/Tot Granulo (auto) INR 1.23 H APTT VBG pH 7.437 H 7.421 VBG pCO2 39 L 40 VBG pO2 41.7 52.6 H VBG HCO3 26 26 Sodium 143 Potassium 3.5 L Chloride 111 Carbon Dioxide 27 BUN 32 H Creatinine 0.8 Estimated Creat Clear 62.51 Estimated GFR 88 Glucose 115 Lactate 1.7 0.9 Calcium 8.7 Phosphorus 3.2 Magnesium 2.2 Total Bilirubin 1.1 Direct Bilirubin AST 182 H ALT 84 H Alkaline Phosphatase 37 L Total Creatine Kinase 5193 H 2501 H Troponin I 0.07 H* 0.07 H* C-Reactive Protein 12.8 H NT-Pro-B Natriuret Pep Total Protein 6.6 Albumin 3.3 Lipase 58 Procalcitonin TSH 2.[address] [place] A Urine Appearance Clear Urine pH 6.0 Ur Specific [place] 1.025 Urine Protein 1+ A Urine Glucose (UA) Negative Urine Ketones Negative Urine Blood 1+ A Urine Nitrite Negative Urine Bilirubin 1+ A Urine Urobilinogen 0.2 Ur Leukocyte Esterase Trace A Urine RBC 0-2 Urine WBC 0-2 Ur Squamous Epith Cells None Urine Bacteria None Urine Opiates Screen Ur Oxycodone Screen Urine Methadone Screen Ur Propoxyphene Screen Ur Barbiturates Screen U Tricyclic Antidepress Ur Phencyclidine Scrn Ur Amphetamines Screen U Methamphetamines Scrn U Benzodiazepines Scrn Urine Cocaine Screen U Marijuana (THC) Screen Ur Drug Screen Comment Ethyl Alcohol Lab Acknowledgement 02/16/23 07:23 WBC RBC Hgb Hct MCV MCH MCHC RDW Coeff of Brenda Plt Count Neut % (Auto) Lymph % (Auto) [place] % (Auto) Eos % (Auto) Baso % (Auto) Neut # (Auto) Lymph # (Auto) [place] # (Auto) Eos # (Auto) Baso # (Auto) Abs Immat Gran (auto) Imm/Tot Granulo (auto) INR APTT VBG pH VBG pCO2 VBG pO2 VBG HCO3 Sodium Potassium Chloride Carbon Dioxide BUN Creatinine Estimated Creat Clear Estimated GFR Glucose Lactate Calcium Phosphorus Magnesium Total Bilirubin Direct Bilirubin AST ALT Alkaline Phosphatase Total Creatine Kinase Troponin I C-Reactive Protein NT-Pro-B Natriuret Pep Total Protein Albumin Lipase Procalcitonin TSH Urine Color Urine Appearance Urine pH Ur Specific [place] Urine Protein Urine Glucose (UA) Urine Ketones Urine Blood Urine Nitrite Urine Bilirubin Urine Urobilinogen Ur Leukocyte Esterase Urine RBC Urine WBC Ur Squamous Epith Cells Urine Bacteria Urine Opiates Screen Ur Oxycodone Screen Urine Methadone Screen Ur Propoxyphene Screen Ur Barbiturates Screen U Tricyclic Antidepress Ur Phencyclidine Scrn Ur Amphetamines Screen U Methamphetamines Scrn U Benzodiazepines Scrn Urine Cocaine Screen U Marijuana (THC) Screen Ur Drug Screen Comment Ethyl Alcohol Lab Acknowledgement Test Added
[2023-02-16 15:00] VITALS: BP 135/62; PULSE 76; PULSE 83; RESP 18; TEMP 36.7; O2SAT 89
--- NOTE | 2023-02-16 15:01 | PC.NURSE ---
End of shift: A&Ox3 with periodic forgetfulness/confusion. Jha intact and will be DC'd per MD Oliveira 02/17 to see if he can go to the on his own. Patient can ambulate with 2 assist, walker, GB to chair. Mepilex covering large skin tear on L. buttock. Abrasions on bilateral knees covered with non-adhesive dressings. Patient has scattered bruises on bilateral shins and arms/hands. Patient denies N/V/SOB/CP. PRN Tylenol administered for pain everywhere x1 with relief. Family at bedside visiting throughout the day. Patient on reg. diet and tolerating well. Patient displays generalized weakness r/t stroke.
[2023-02-16 19:00] VITALS: BP 131/77; PULSE 74; RESP 18; TEMP 36.5; O2SAT 88
--- NOTE | 2023-02-16 19:05 | PC.NURSE ---
Nurse note: Lab ([facility]) called and reported that patient had an order for HbA1C but they do not do that on weekend unless it is critical. Lab want to do it on Saturday. Nurse informed MD and about the situation. MD agreed that the lab can be done on Saturday. Nurse reported back to lab about the MD's response.
[2023-02-16] MEDS: TAMSULOSIN HCL 0.4 MG CAPSULE 0.8 MG PO (20:32)
[2023-02-16] MEDS: ENOXAPARIN 40 MG/0.4 ML INJ SUBCUT (20:34)
--- NOTE | 2023-02-16 22:14 | PC.NURSE ---
Shift note: Pt is doing well, no weakness in extremities noted this shift. Pt is alert and oriented but occasionally tend to be confuse. Vitally stable. Turn and reposition Q2H and upon request. Pt complained of back pain, Tylenol given and was effective. Jha patent and draining david colored urine. Dressing to both knee appeared clean and dry.
[2023-02-16 23:20] VITALS: BP 142/79; PULSE 80; PULSE 82; RESP 20; RESP 22; TEMP 37; O2SAT 90
[2023-02-17] MEDS: OLANZapine 5 MG TAB.RAPDIS PO (01:47)
[2023-02-17 03:00] VITALS: PULSE 76; RESP 26; TEMP 37; O2SAT 88
[2023-02-17] MEDS: 0.9 % SODIUM CHLORIDE 1000 ml 1,000 ML 125 ML IV (03:45)
--- NOTE | 2023-02-17 06:38 | PC.NURSE ---
Pt pleasant but confused thinking he was in his home and I(abstract writer) had come into his home uninvited. Pt couldn't comprehend that he was in the hospital asking abstract writer same questions multiple times. He stated this doen't look like my house by I know I am home, why are you in my house, who is paying your salary, how many houses are built here for rent, what is your reason for being in my room..... Olanzipine HS PRN ordered by Dr. Nelson and given with little success. Pt was restess on/off all night. Insisted on getting up and getting ready to go to the clinic @ 0500, Heavy 2, gait belt, and walker to chair for 30 minutes before pt attempted to slide out of chair to get cleaned up for the day. Heavy 2, GB, walker back to bed. Pt is appears more relaxed and at ease in bed. Daughter Rubi was contacted around 2330 to help settle pt's suspicions and later contacted again once pt fell asleep. Rubi stated her and sister would be in sometime in am unless otherwise contacted.
[2023-02-17 07:00] VITALS: BP 157/83; PULSE 77; PULSE 83; RESP 18; TEMP 37.1; O2SAT 93
[2023-02-17 07:18] LABS: Basophils Absolute Auto 0.04 K/uL (0.00-0.30); Basophils Percent Auto 0.5 % (0.0-3.0); Eosinophils Absolute Auto 0.41 K/uL (0.00-0.50); Eosinophils Percent Auto 5.1 % (0.0-7.0); Hematocrit 39.3 % (37.0-53.0); Hemoglobin* 13.2 gm/dL (13.5-17.5); Immature Granulocytes Abs Auto 0.05 K/uL (0.00-0.30); Immature Granulocytes Pct Auto 0.6 %; Lymphocytes Percent Auto 10.7 % (20-44); Mean Corpuscular HGB Conc 34 gm/dL (32-36); Mean Corpuscular Hemoglobin 30 pg (26-34); Mean Corpuscular Volume 89 fL (80-100); Monocytes Percent Auto 10.3 % (0.0-11.0); Neutrophils Percent Auto 72.8 % (42.0-72.0); Platelet Count* 122 K/uL (140-440); RDW Coefficient of Variation % 13.1 % (11.5-15.5); Red Blood Count 4.42 m/uL (4.30-5.90); White Blood Count* 8.02 K/uL (4.50-11.00)
[2023-02-17 07:23] LABS: Slide Review Reflex No
[2023-02-17] MEDS: OMEPRAZOLE 20 MG CAPSULE DR 40 MG PO (07:25)
[2023-02-17 07:30] LABS: Chloride* 110 mmol/L (96-114)
[2023-02-17 07:31] LABS: Potassium* 3.2 mmol/L (3.6-5.1); Sodium* 140 mmol/L (135-149)
[2023-02-17 07:33] LABS: Creatinine* 0.7 mg/dL (0.5-1.5); Est. Creatinine Clearance* 62.51; Estimated Glomerular Filt Rate 92 ml/min
[2023-02-17 07:34] LABS: Blood Urea Nitrogen* 18 mg/dL (7-30); Calcium* 8.5 mg/dL (8.4-10.6); Carbon Dioxide* 27 mmol/L (20-32); Glucose* 102 mg/dL (60-115)
[2023-02-17 07:37] LABS: C Reactive Protein* 7.1 mg/dL (0.5-1.0)
[2023-02-17] MEDS: ASPIRIN 81 MG TAB.CHEW PO (09:11)
[2023-02-17] MEDS: DULOXETINE 30 MG CAPSULE DR 60 MG PO (09:11)
[2023-02-17] MEDS: FINASTERIDE 5 MG TABLET PO (09:12)
[2023-02-17] MEDS: ACETAMINOPHEN 325 MG TABLET 650 MG PO ×3 (09:12→20:25)
[2023-02-17] MEDS: CLOPIDOGREL 75 MG TABLET PO (09:12)
[2023-02-17 11:00] VITALS: BP 179/73; PULSE 83; RESP 18; TEMP 37.1; O2SAT 90
[2023-02-17] MEDS: CARBOXYMETHYLCELLULOSE (REFRESH PLUS) TEARS 1 DROP EYE-BOTH (12:24)
[2023-02-17] MEDS: POTASSIUM BICARB 25 MEQ EFFERVESCENT TAB 50 MEQ PO (12:24)
[2023-02-17] MEDS: MUPIROCIN OINTMENT 22 GM 1 APPLIC TOPICAL ×2 (12:28→21:34)
[2023-02-17] MEDS: cephALEXin 500 MG CAPSULE PO ×3 (12:30→20:26)
[2023-02-17] MEDS: SENNOSIDES/DOCUSATE TABLET 1 TAB PO (14:39)
--- NOTE | 2023-02-17 14:57 | PM.IMPN1 ---
Progress Note: A&P Assessment and plan (1) AMS (altered mental status): Problem details: Altered mental status likely due to acute illness plus underlying cognitive impairment plus acute stroke Status: Acute (2) Amnesia: Problem details: Related to altered mental status and acute stroke and underlying cognitive impairment Status: Acute (3) Closed head injury: Problem details: No bleed. Status: Acute (4) Rhabdomyolysis: Problem details: Due to being found down for as long as 48 hours on the bathroom floor. Improving with fluid resuscitation. No obvious acute kidney injury. Status: Acute (5) Abrasion: Problem details: Multiple bruises and abrasions of different ages. According to family he had a fall 2 weeks ago as well. Status: Acute (6) Fall: Problem details: Recurrent problem. Weakness and poor balance likely contributing. Now new stroke also likely contributing. Therapy to evaluate. Probably needs rehab stay. Status: Acute (7) Dehydration: Problem details: Due to being on the floor for 2 days. Status: Acute (8) Elevated levels of transaminase & lactic acid dehydrogenase: Problem details: Likely due to acute illness. Monitor Status: Acute (9) Urinary retention: Problem details: 700 ml in ED 02/15/2023. Removed catheter and monitor for ability to empty bladder Status: Acute (10) Leukocytosis, unspecified: Problem details: Unclear if this is acute or chronic given history of leukocytosis in the past. Trend Status: Acute (11) Progressive cognitive dysfunction: Problem details: Assess [place] when patient is not delirious Status: Acute (12) Progressive gait disorder: Problem details: Combination of poor balance and weakness. Will need long-term facility Status: Acute (13) Stroke: Problem details: Likely the primary trigger for the fall and subsequent confusion. 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 NUBIA Jha. Optimize environment. Sedating medications only to prevent self-harm Status: Acute Plan Continue in hospital for evaluation management of stroke with poor balance, left upper extremity apraxia, delirium, deconditioning, dementia. Total time spent today is 40 minutes, 30 minutes in coordination of care and discussion of plan of care discussed with patient and family and other providers. Subjective Date Seen: 02/17/23 Interval history: 82-year-old male admitted to the hospital after being found down for at least a couple days at home. I meet with him today with his family also present. They give mostly history is the patient does not really recall the events leading up to his hospital stay. He was found down at home in the bathroom with incontinence of urine and stool. His daughter found him conscious but confused. They believe that he fell 1 or 2 times. They found furniture knocked over in other rooms of the house besides the bathroom indicating that he had fallen elsewhere. He was last seen to be doing fine 48 hours prior to admission. Evaluation on admission was notable for profound weakness, marked elevation of his CPK, mild elevation of his troponin, profound weakness, altered mental status and small stroke on MRI. Patient reports feeling fine today. He does acknowledges legs are weak. This has been a longstanding problem. Lives independently in a home with no stairs. He normally does not use assistive device to get around his home but does use a walker when he leaves the house. He continues to drive. Family indicates that prior to this episode he was having some problems with forgetfulness as well. Overnight patient developed delirium. Was agitated and confused. He was not sleeping. He had visual hallucinations. He is better this morning. He did receive olanzapine for this. Therapy noted that he was weaker and more difficult to direct in therapy today. I discussed this with his family and they note that he has had previous episodes of delirium after surgeries in the past. Exam Narrative: Exam Narrative: He is alert and appears in no distress. He is not oriented to place but he is oriented to the people in the room and he is able to carry on a conversation. He is not currently agitated. Head is without trauma. Eyes normal. Oropharynx with small airway. Neck is supple without mass or adenopathy. Respirations are clear to auscultation. Cardiovascular: S1, S2, regular rate and. Abdomen is soft without tenderness or mass. Extremities without edema. [id number] is normal on the the right hand and on the left hand he has difficulties though is poor able to perform partially today compared to yesterday when he could not perform at all. No focal weakness. He struggles to stand with a walker with physical therapy today Const: Vital Signs, click to edit/add: Vital Signs - 24 hr 02/16/23 15:00 02/16/23 15:00 02/16/23 15:00 Temperature Pulse Rate 83 Pulse Rate [Pulse Oximeter] 76 Respiratory Rate 18 18 Blood Pressure [Ri ght Arm] Pulse Oximetry 89 Oxygen Delivery Me thod Room Air 02/16/23 15:00 02/16/23 19:00 02/16/23 23:20 Temperature 98.1 F 97.7 F Pulse Rate 82 Pulse Rate [Pulse Oximeter] 76 74 Respiratory Rate 18 18 Blood Pressure [Ri ght Arm] 135/62 131/77 Pulse Oximetry 89 88 Oxygen Delivery Me thod Room Air Room Air 02/16/23 23:20 02/16/23 23:20 02/17/23 03:00 Temperature 98.6 F 98.6 F Pulse Rate Pulse Rate [Pulse Oximeter] 80 76 Respiratory Rate 20 22 26 H Blood Pressure [Ri ght Arm] 142/79 H Pulse Oximetry 90 90 88 Oxygen Delivery Me thod Room Air Room Air Room Air 02/17/23 07:00 02/17/23 07:00 02/17/23 07:00 Temperature 98.8 F Pulse Rate Pulse Rate [Pulse Oximeter] 83 83 Respiratory Rate 18 18 18 Blood Pressure [Ri ght Arm] 157/83 H Pulse Oximetry 93 93 Oxygen Delivery Me thod Room Air Room Air 02/17/23 07:00 02/17/23 11:00 Temperature 98.7 F Pulse Rate 77 Pulse Rate [Pulse Oximeter] 83 Respiratory Rate 18 Blood Pressure [Ri ght Arm] 179/73 H Pulse Oximetry 90 Oxygen Delivery Me thod Room Air Documenting provider has reviewed patient's vital signs: yes Labs Labs: Laboratory Results - last 24 hr 02/17/23 07:05 WBC 8.02 RBC 4.42 Hgb 13.2 L Hct 39.3 MCV 89 MCH 30 MCHC 34 RDW Coeff of Brenda 13.1 Plt Count 122 L Neut % (Auto) 72.8 H Lymph % (Auto) 10.7 L [place] % (Auto) 10.3 Eos % (Auto) 5.1 Baso % (Auto) 0.5 Neut # (Auto) 5.80 Lymph # (Auto) 0.90 [place] # (Auto) 0.80 Eos # (Auto) 0.41 Baso # (Auto) 0.04 Abs Immat Gran (auto) 0.05 Imm/Tot Granulo (auto) 0.6 Sodium 140 Potassium 3.2 L Chloride 110 Carbon Dioxide 27 BUN 18 Creatinine 0.7 Estimated Creat Clear 62.51 Estimated GFR 92 Glucose 102 Calcium 8.5 C-Reactive Protein 7.1 H
[2023-02-17 15:00] VITALS: BP 149/74; PULSE 81; RESP 18; TEMP 37.2; O2SAT 93
--- NOTE | 2023-02-17 19:11 | PC.NURSE ---
Patient alert and pleasant but as the day went on he became increasingly agitated and confused and suspicious of staff. Patient thinks he is being lied to about his location and who the staff were. MD notified and recommended to continue to reorient patient to his surroundings and purpose here at the hospital because of his Delirium. EZ stand was used successfully in transferring patient to BR and to Chair and to Bed. He is a heavy 2 assist with walker and GB when ambulating. Patient was Bladder scanned a few times and amount was <10. Pt was restless on/off all afternoon starting around 1300. Daughters at bedside throughout the day.
[2023-02-17] MEDS: ENOXAPARIN 40 MG/0.4 ML INJ SUBCUT (20:26)
[2023-02-17] MEDS: TAMSULOSIN HCL 0.4 MG CAPSULE 0.8 MG PO (20:26)
[2023-02-17] MEDS: MELATONIN 3 MG TABLET PO (21:33)
[2023-02-17 23:00] VITALS: BP 159/62; PULSE 80; RESP 20; TEMP 37; O2SAT 90
[2023-02-18 03:00] VITALS: PULSE 76; RESP 24; TEMP 36.7; O2SAT 90
[2023-02-18] MEDS: ACETAMINOPHEN 325 MG TABLET 650 MG PO ×2 (05:54→12:36)
[2023-02-18] MEDS: OMEPRAZOLE 20 MG CAPSULE DR 40 MG PO (05:54)
--- NOTE | 2023-02-18 06:31 | PC.NURSE ---
Pt pleasant, cooperative, as well as confused. Evening pt was confused and asked repetitive questions, adamant he was to drive home for bed. Repeated redirection with some successs. Pt fell asleep around 2245 and slept soundly until 0545. Turn and repo through the night. Pt has Mepilex to coxyxx due to redness, open skin tear approximately the size of a dime with no drainage noted.
[2023-02-18 06:32] LABS: Basophils Absolute Auto 0.04 K/uL (0.00-0.30); Basophils Percent Auto 0.7 % (0.0-3.0); Eosinophils Absolute Auto 0.35 K/uL (0.00-0.50); Eosinophils Percent Auto 5.7 % (0.0-7.0); Hematocrit 40.9 % (37.0-53.0); Hemoglobin* 13.7 gm/dL (13.5-17.5); Immature Granulocytes Abs Auto 0.04 K/uL (0.00-0.30); Immature Granulocytes Pct Auto 0.7 %; Lymphocytes Percent Auto 15.5 % (20-44); Mean Corpuscular HGB Conc 34 gm/dL (32-36); Mean Corpuscular Hemoglobin 30 pg (26-34); Mean Corpuscular Volume 88 fL (80-100); Neutrophils Absolute Auto 4.14 K/uL (1.7-7.0); Neutrophils Percent Auto 67.4 % (42.0-72.0); Platelet Count* 144 K/uL (140-440); RDW Coefficient of Variation % 13.1 % (11.5-15.5); Red Blood Count 4.63 m/uL (4.30-5.90); White Blood Count* 6.13 K/uL (4.50-11.00)
[2023-02-18 06:33] LABS: Slide Review Reflex No
--- NOTE | 2023-02-18 06:35 | PC.NURSE ---
Pt pleasant, cooperative, and confused. Repetitive statements about getting home and question of where his keys and car are. Redirectable on/off through evening shift. Pt fell asleep around 2245 after evening cares, sleeping soundly until 0545. Turn/Reposition throughout the night to prevent further skin breakdown and ease pts body aches. Tylenol per MAR also given for body aches with relief. Mepilex to coccyx for redness and skin tear approximately the size of a dime, no drainage noted. Skin to bilat knees and right ankle cleaned, ointment per SEP & telfa applied. Multiple scabs to right elbos & LE results from fall at home prior to admission. Pt woke and asked to use BR, brief was wet but pt also voided in toilet. Pt agreed to Tylenol and asked for fresh coffee if you have it please. Pt was brought to chair by MAURA Stand is currently drinking coffee, reading paper, and watching [employer].
[2023-02-18 06:46] LABS: Chloride* 108 mmol/L (96-114); Potassium* 3.5 mmol/L (3.6-5.1); Sodium* 142 mmol/L (135-149)
[2023-02-18 06:49] LABS: Blood Urea Nitrogen* 15 mg/dL (7-30); Carbon Dioxide* 30 mmol/L (20-32); Creatinine* 0.7 mg/dL (0.5-1.5); Est. Creatinine Clearance* 62.51; Estimated Glomerular Filt Rate 92 ml/min
[2023-02-18 06:50] LABS: Calcium* 8.9 mg/dL (8.4-10.6); Glucose* 105 mg/dL (60-115)
[2023-02-18 06:52] LABS: C Reactive Protein* 6.2 mg/dL (0.5-1.0)
[2023-02-18 07:00] VITALS: BP 138/125; PULSE 88; RESP 20; TEMP 36.8; O2SAT 95
[2023-02-18 07:22] LABS: Hemoglobin A1C* 5.21 % (0-5.6)
[2023-02-18] MEDS: ASPIRIN 81 MG TAB.CHEW PO (09:24)
[2023-02-18] MEDS: DULOXETINE 30 MG CAPSULE DR 60 MG PO (09:24)
[2023-02-18] MEDS: FINASTERIDE 5 MG TABLET PO (09:24)
[2023-02-18] MEDS: cephALEXin 500 MG CAPSULE PO ×4 (09:25→23:10)
[2023-02-18] MEDS: CLOPIDOGREL 75 MG TABLET PO (09:25)
--- NOTE | 2023-02-18 10:44 | PC.NURSE ---
Hui by Dr. Oliveira. Pt's dtrs Rubi and Elana present and supportive at bedside with Ken's grand-daughter. PT evaluation with ambulation in room and BRP. Pt had a small BM smear noted in his pull-up and one unmeasured void in the toilet. Bed and chair alarms engaged for safety. Daily weight obtained utilizing standing scale. Pt noted to have old blistering in his gluteal fold below mepilex dressing. Plan barrier cream. Bilateral knee high lauren hose applied by Kati ASENCIO. No dysphagia with morning med pass. Continue POC.
[2023-02-18 11:07] VITALS: BP 150/87; PULSE 76; RESP 20; TEMP 37; O2SAT 92
[2023-02-18] MEDS: SENNOSIDES/DOCUSATE TABLET 1 TAB PO (12:37)
--- NOTE | 2023-02-18 13:47 | PC.SOCIAL ---
Addendum entered by DORIS Khan 02/18/23 16:26: Completed Preadmission screening. Confirmation #[id number]. Addendum entered by DORIS Khna 02/18/23 15:42: Received a phone call from Maria Antonia at [facility]. Maria Antonia informs that they can accept pt for admission for tomorrow (02/19/23). Maria Antonia will try to set up transport for 10:00 am with [facility] van, and will update if that time does not work. Phone call to pt's daughter (Kinza) to provide update. Pt's daughter feels like it is sudden and wants to be sure pt is ready for discharge. Informed pt's daughter that the MD on staff will evaluate how pt does overnight and determine if pt is medically stable to discharge tomorrow. Discussed transportation and daughter would like to use transportation from [facility]. Informed the tentative time will be 10:00 am. Provided update to charge nurse (Shanae). Original Note: Discharge planning- met with pt's daughters to discuss discharge plans. Recommendation is short-term rehab stay in SNF. Daughters are aware and would like pt in [place]. First choice is [facility] as they state pt has been there before. Second choice would be [facility]. Informed there are no openings in [facility]. Contacted the following SNF's. 1. [facility]- Phone call to Maria Antonia. Maria Antonia will assess. Faxed referral to [phone]. 2. [facility]- Phone call to Mandi in admissions. Mandi informs that there will be an opening tomorrow and requests that referral be sent to her. Secure e-mailed referral to [facility] admissions. Social work will continue to follow up as necessary.
--- NOTE | 2023-02-18 13:53 | PC.NURSE ---
Pt chelsey 100% of his lunch. Dtr Elana at bedside, updated her on rationale for Keflex d/to abrasion on right knee where replacement surgery was performed in the past. Dressings CDI. Continue plan of care. BP improved from initial assessment. Report will be provided to oncoming shift RN.
--- NOTE | 2023-02-18 13:56 | P.IMPN_ITS ---
Progress Note: A&P Assessment and plan (1) AMS (altered mental status): Problem details: Altered mental status likely due to acute illness plus underlying dementia plus acute stroke. Concussion and delirium may also be present Status: Acute (2) Stroke: Problem details: Likely the primary trigger for the fall and subsequent confusion. 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 Status: Acute (5) Rhabdomyolysis: Problem details: Due to being found down for as long as 48 hours on the bathroom floor. I mproving with fluid resuscitation. No obvious acute kidney injury. Status: Acute (6) Abrasion: Problem details: Multiple bruises and abrasions of different ages. According to family he had a fall 2 weeks ago as well. Status: Acute (7) Fall: Problem details: Recurrent problem. Weakness and poor balance likely contributing. Now new stroke also likely contributing. Therapy to evaluate. Probably needs rehab stay. Status: Acute (8) Dehydration: Problem details: Due to being on the floor for 2 days. Resolved with IV fluids Status: Acute (9) Elevated levels of transaminase & lactic acid dehydrogenase: Problem details: Likely due to acute illness. Monitor Status: Acute (10) Urinary retention: Problem details: 700 ml in ED 02/15/2023. Removed catheter and monitor for ability to empty bladder. Status: Acute (11) Leukocytosis, unspecified: Problem details: Unclear if this is acute or chronic given history of leukocytosis in the past. Trend Status: Acute (12) Progressive cognitive dysfunction: Problem details: Assess [place] when patient is not delirious Status: Acute (13) Progressive gait disorder: Problem details: Combination of poor balance and weakness. Will need senior care facility Status: Acute (14) Delirium: Problem details: Recurrent hospital-acquired delirium. NUBIA Jha. Optimize environment. Se dating medications only to prevent self-harm Status: Acute (15) Cellulitis and abscess of leg: Problem details: Abrasions over both knees, left greater than right with erythema over both prepatellar area is left greater than right. Treat with mupirocin and Keflex due to presence of cellulitis and knee prosthesis Status: Acute Plan Continue in hospital for management of stroke and delirium. Look for senior care facility for ongoing rehab. Time Spent With Patient Total time spent: Total time spent today is 45 minutes, 30 minutes in coordination of care discussing with patient family and other providers ongoing evaluation management of stroke and delirium. Subjective Date Seen: 02/18/23 Interval history: 82-year-old male admitted to the hospital after being found down for at least a couple days at home. I meet with him today with his family also present. They give mostly history is the patient does not really recall the events leading up to his hospital stay. He was found down at home in the bathroom with incontinence of urine and stool. His daughter found him conscious but confused. They believe that he fell 1 or 2 times. They found furniture knocked over in other rooms of the house besides the bathroom indicating that he had fallen elsewhere. He was last seen to be doing fine 48 hours prior to admission. Evaluation on admission was notable for profound weakness, marked elevation of his CPK, mild elevation of his troponin, profound weakness, altered mental status and small stroke on MRI. Patient reports feeling fine today. He does acknowledges legs are weak. This has been a longstanding problem. Lives independently in a home with no stairs. He normally does not use assistive device to get around his home but does use a walker when he leaves the house. He continues to drive. Family indicates that prior to this episode he was having some problems with forgetfulness as well. Overnight, 2nd night of admission, patient developed delirium. Was agitated and confused. He was not sleeping. He had visual hallucinations. He is better since then. He did receive 1 dose of olanzapine for this. He remains mildly confused but pleasant and cooperative without agitation. Partially oriented. Therapy noted that he was weaker and more difficult to direct in therapy. I discussed this with his family and they note that he has had previous episodes of delirium after surgeries in the past. Today he is oriented to his circumstances except he does not know he is in the hospital. Family tells me that he had to be oriented to his granddaughter and his circumstances today. Exam Narrative: Exam Narrative: He is alert and pleasant. Not oriented to his circumstances or location. C ommunication otherwise appropriate. Speech is normal. Respirations are clear to auscultation. Cardiovascular: S1, S2, regular rate and rhythm. Abdomen: Bowel sounds active. Abdomen is soft without tenderness or mass. No significant edema. Upper extremity testing shows equal full strength bilaterally. Today he is able to do [id number] better with his left hand and normally with his right hand. Needs less prompting to get this done as well. Const: Vital Signs, click to edit/add: Vital Signs - 24 hr 02/17/23 15:00 02/17/23 15:00 02/17/23 15:00 Temperature 99.0 F Pulse Rate [Left A pical] Pulse Rate [Pulse Oximeter] 81 81 Respiratory Rate 18 18 18 Blood Pressure [Ri ght Arm] 149/74 H Pulse Oximetry 93 93 Oxygen Delivery Me thod Room Air Room Air 02/17/23 23:00 02/17/23 23:00 02/18/23 03:00 Temperature 98.6 F 98.1 F Pulse Rate [Left A pical] Pulse Rate [Pulse Oximeter] 80 76 Respiratory Rate 20 20 24 Blood Pressure [Ri ght Arm] 159/62 H Pulse Oximetry 90 90 90 Oxygen Delivery Me thod Room Air Room Air Room Air 02/18/23 07:00 02/18/23 07:00 02/18/23 11:07 Temperature 98.2 F 98.6 F Pulse Rate [Left A pical] 88 76 Pulse Rate [Pulse Oximeter] 88 76 Respiratory Rate 20 20 20 Blood Pressure [Ri ght Arm] 138/125 H 150/87 H Pulse Oximetry 95 95 92 Oxygen Delivery Me thod Room Air Room Air Room Air Documenting provider has reviewed patient's vital signs: yes Labs Labs: Laboratory Results - last 24 hr 02/16/23 02/18/23 06:18 06:18 WBC 6.13 RBC 4.63 Hgb 13.7 Hct 40.9 MCV 88 MCH 30 MCHC 34 RDW Coeff of Brenda 13.1 Plt Count 144 Neut % (Auto) 67.4 Lymph % (Auto) 15.5 L Bradley % (Auto) 10.0 Eos % (Auto) 5.7 Baso % (Auto) 0.7 Neut # (Auto) 4.14 Lymph # (Auto) 1.00 Bradley # (Auto) 0.60 Eos # (Auto) 0.35 Baso # (Auto) 0.04 Abs Immat Gran (auto) 0.04 Imm/Tot Granulo (auto) 0.7 Sodium 142 Potassium 3.5 L Chloride 108 Carbon Dioxide 30 BUN 15 Creatinine 0.7 Estimated Creat Clear 62.51 Estimated GFR 92 Glucose 105 Hemoglobin A1c 5.21 Calcium 8.9 C-Reactive Protein 6.2 H
[2023-02-18 15:00] VITALS: BP 156/76; PULSE 82; RESP 20; TEMP 36.4; O2SAT 94
[2023-02-18 22:00] VITALS: BP 178/121; PULSE 100; RESP 20; TEMP 36.6; O2SAT 93
[2023-02-18 23:00] VITALS: RESP 20; O2SAT 93
[2023-02-18] MEDS: ENOXAPARIN 40 MG/0.4 ML INJ SUBCUT (23:09)
[2023-02-18] MEDS: MUPIROCIN OINTMENT 22 GM 1 APPLIC TOPICAL (23:10)
[2023-02-18] MEDS: TAMSULOSIN HCL 0.4 MG CAPSULE 0.8 MG PO (23:10)
[2023-02-19] MEDS: ACETAMINOPHEN 325 MG TABLET 650 MG PO ×2 (02:54→08:44)
[2023-02-19] MEDS: OLANZapine 5 MG TAB.RAPDIS PO (02:54)
[2023-02-19 03:00] VITALS: PULSE 87; RESP 20; TEMP 36.7; O2SAT 93
[2023-02-19 07:30] VITALS: BP 194/90; PULSE 80; PULSE 87; RESP 18; RESP 20; TEMP 36.7; O2SAT 97
--- NOTE | 2023-02-19 07:33 | PC.NURSE ---
Shift note: Pt was disoriented and insisted going home, and did not want to lay in bed or sit in the recliner but rather prefer to sit in the wheelchair. Persistently wanted to self ambulate. 1:1 care was given with nurse assistance. Refused vital signs checked and medications. Nurse reached out to him again at 2230 and accepted to lay down in bed, check vital signs and medications. treatment given.
[2023-02-19] MEDS: cephALEXin 500 MG CAPSULE PO (08:44)
[2023-02-19] MEDS: CLOPIDOGREL 75 MG TABLET PO (08:44)
[2023-02-19] MEDS: FINASTERIDE 5 MG TABLET PO (08:44)
[2023-02-19] MEDS: ASPIRIN 81 MG TAB.CHEW PO (08:44)
[2023-02-19] MEDS: SENNOSIDES/DOCUSATE TABLET 1 TAB PO (08:45)
[2023-02-19] MEDS: DULOXETINE 30 MG CAPSULE DR 60 MG PO (08:45)
[2023-02-19] MEDS: OMEPRAZOLE 20 MG CAPSULE DR 40 MG PO (08:52)
[2023-02-19] MEDS: SENNOSIDES/DOCUSATE TABLET 2 TAB PO (08:53)
[2023-02-19 09:20] VITALS: BP 190/94; PULSE 80; RESP 20; TEMP 36.7
--- NOTE | 2023-02-19 10:12 | P.DS_ITS ---
DS: Providers Provider Date Seen: 02/19/23 Date of admission: 02/15/23 17:36 Primary care physician: Not a Local Provider Admitting Clinician: Chandana Nelson MD Attending Physician on discharge: Leopoldo Oliveira MD DS: Diagnosis Discharge Diagnosis (1) Stroke: Status: Acute Problem details: Likely the primary trigger for the fall and subsequent confusion. 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 Patient has improved with apraxia. Recommend statin, aspirin, clopidogrel. Stop clopidogrel after 1 month. (2) Delirium: Status: Acute Problem details: Recurrent hospital-acquired delirium. Delirium is better though fluctuating. Patient is confused/disoriented even when he is not appearing delirious. (3) AMS (altered mental status): Status: Acute Problem details: Altered mental status likely due to acute illness plus underlying dementia plus acute stroke. Concussion and delirium may also be present. (4) Dementia: Status: Acute Problem details: Patient appears to have dementia. Cognitive testing recommended once he has improved from his delirium (5) Rhabdomyolysis: Status: Acute Problem details: Due to being found down for as long as 48 hours on the bathroom floor. Im proving with fluid resuscitation. No obvious acute kidney injury. (6) Closed head injury: Status: Acute Problem details: No bleed. No apparent sequelae from his head injury other than possible concussion. (7) Abrasion: Status: Acute Problem details: Multiple bruises and abrasions of different ages. According to family he had a fall 2 weeks ago as well. (8) Fall: Status: Acute Problem details: Recurrent problem. Weakness and poor balance likely contributing. Now new stroke also likely contributing. Discharge to rehab for ongoing treatment of weakness, deconditioning, poor balance (9) Progressive gait disorder: Status: Acute Problem details: Combination of poor balance and weakness. Transfer to long term facility (10) Elevated levels of transaminase & lactic acid dehydrogenase: Status: Acute Problem details: Likely due to acute illness. Follow-up as outpatient next week (11) Urinary retention: Status: Acute Problem details: 700 ml in ED 02/15/2023. Removed catheter and monitor for ability to empty bladder. Continue to monitor bladder scan as needed for urinary retention. Addressed constipation. (12) Leukocytosis, unspecified: Status: Acute Problem details: Unclear if this is acute or chronic given history of leukocytosis in the past. Trend (13) Cellulitis and abscess of leg: Status: Acute Problem details: Abrasions over both knees, left greater than right with erythema over both prepatellar area is left greater than right. Treat with mupirocin and Keflex due to presence of cellulitis and knee prosthesis. DS: Summary Hospital Course Hospital Course: 82-year-old male admitted to the hospital after being found down at home. He was suspected to be down at home for up to 2 days prior to admission. He was found down in the bathroom with the shower door lying on top of him. He was encephalopathic at the time. He is brought to the emergency room where a number of problems were identified. 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 This was thought to be a probable cause of his fall. Is also thought to be causing some apraxia with [id number] which he was unable to do on admission but now is able to do at the time of discharge. Also thought to be contributing to his inability to walk. He is felt to have chronic gait instability and chronic weakness and deconditioning. This had gotten worse with his stroke and being found down for 2 days. He had rhabdomyolysis without subsequent acute kidney injury. He was managed with aggressive fluid resuscitation and did well with this. He was found to have metabolic encephalopathy at the time of admission. This was thought to be due to his stroke, possible concussion, underlying dementia, acute illness. This improved during his hospital stay though he continued to have some intermittent delirium and ongoing evidence of dementia. He has bruises and abrasions from his fall as well as likely from previous falls over the past couple weeks. Abrasions over his knees were treated for cellulitis with topical mupirocin and oral cephalexin and wound care He had urinary retention with 700 mL of retained urine on admission. Initially a catheter was placed and then removed. Has been able to void since then. He has had intermittent delirium during his hospital stay. This is generally been manageable with redirection and family and nursing support. Status at Discharge Functional status at discharge: uses cane/walker Overall status at discharge: patient is progressing back to baseline Time Spent with Patient Time attestation: Total time spent providing and/or coordinating discharge services: Time spent: Greater than 30 minutes Exam Narrative: Exam Narrative: He is alert and appears in no distress. He is not oriented to his place. Head is without trauma. Eyes are normal. Oropharynx with small airway. Neck is supple without mass or adenopathy. Respirations are clear to auscultation. Cardiovascular: S1, S2, relative regular rhythm. Abdomen is soft without tenderness or mass. Upper extremities have relatively symmetric strength. He is able to do [id number] bilaterally accurately and efficiently. Lower extremities with trace edema. Const: Vital Signs, click to edit/add: Vital Signs - 24 hr 02/18/23 11:07 02/18/23 15:00 02/18/23 15:00 Temperature 98.6 F Pulse Rate Pulse Rate [Left A pical] 76 Pulse Rate [Pulse Oximeter] 76 82 Respiratory Rate 20 20 20 Blood Pressure Blood Pressure [Ri ght Arm] 150/87 H Pulse Oximetry 92 94 Oxygen Delivery Me thod Room Air Room Air 02/18/23 15:00 02/18/23 22:00 02/18/23 23:00 Temperature 97.5 F L 97.8 F Pulse Rate Pulse Rate [Left A pical] Pulse Rate [Pulse Oximeter] 82 100 Respiratory Rate 20 20 20 Blood Pressure Blood Pressure [Ri ght Arm] 156/76 H 178/121 H Pulse Oximetry 94 93 Oxygen Delivery Me thod Room Air Room Air 02/18/23 23:00 02/18/23 23:00 02/19/23 03:00 Temperature 98.1 F Pulse Rate Pulse Rate [Left A pical] Pulse Rate [Pulse Oximeter] 87 Respiratory Rate 20 20 20 Blood Pressure Blood Pressure [Ri ght Arm] Pulse Oximetry 93 93 93 Oxygen Delivery Me thod Room Air Room Air Room Air 02/19/23 07:30 02/19/23 07:30 02/19/23 07:30 Temperature 98.1 F Pulse Rate Pulse Rate [Left A pical] 80 80 Pulse Rate [Pulse Oximeter] 87 Respiratory Rate 18 18 20 Blood Pressure Blood Pressure [Ri ght Arm] 194/90 H Pulse Oximetry 97 97 Oxygen Delivery Me thod Room Air Room Air 02/19/23 09:20 Temperature 98.1 F Pulse Rate 80 Pulse Rate [Left A pical] Pulse Rate [Pulse Oximeter] Respiratory Rate 20 Blood Pressure 190/94 H Blood Pressure [Ri ght Arm] Pulse Oximetry Oxygen Delivery Me thod Documenting provider has reviewed patient's vital signs: yes DS: Data Data Completed and Pending Labs on day of discharge: Preliminary micro results at discharge 02/15/23 12:27 Blood Culture - Preliminary Blood NO GROWTH AFTER 72 HOURS 02/15/23 12:27 Blood Culture - Preliminary Blood NO GROWTH AFTER 72 HOURS Imaging MRI - head: Radiologist's impression: INDICATION: Altered mental status. TECHNIQUE: Brain MRI without contrast. The following sequences were obtained: Sagittal T1 weighted sequence. DWI and ADC mapping sequences. Axial FLAIR and BRANNON T2 weighted sequences. COMPARISON: Head CT from 02/16/2020 FINDINGS: Punctate focus of diffusion restriction within the left mid centrum semiovale, likely an acute or subacute infarct. No recent ischemia elsewhere within the brain. No evidence of acute or chronic intracranial blood products. Patchy FLAIR hyperintensities within the supratentorial white matter and brainstem, as well as hazy ill-defined T2 hyperintensity within the bilateral cerebellar hemispheres. No mass effect or herniation. No hydrocephalus or extra-axial collections. Moderate generalized parenchymal volume loss. The pituitary gland, parasellar structures and optic chiasm are normal. All the major intracranial vascular structures demonstrate normal flow-related signal. The orbital contents are normal. No calvarial or skull base marrow replacing process. No obstructive sinus disease. Bilateral subgaleal fluid collections which may reflect 3rd spacing. IMPRESSION: 1. 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 No recent ischemia elsewhere within the brain. 2. Patchy FLAIR hyperintensities within the supratentorial white matter, brainstem and cerebellum. Differential considerations include chronic small vessel ischemic change, versus sequela of an inflammatory or demyelinating process. 3. Overall moderate generalized parenchymal volume loss. 4. Bilateral subgaleal fluid collections, which may reflect 3rd spacing. Discharge Plan Discharge Disposition: [facility] Date of Admission: 02/15/23 17:36 Attending Provider on Discharge: Prince Oliveira Primary Care Provider: Provider,Not a Local Condition: Stable Discharge Medications: New sennosides-docusate sodium [Stool Softener-Laxative] 8.6-50 mg Tablet 2 tab PO DAILY PRN (Reason: Constipation) Qty: 30 0RF melatonin 3 mg Tablet 3 mg PO HS PRN (Reason: Insomnia) Qty: 30 0RF clopidogrel 75 mg Tablet 75 mg PO DAILY Qty: 30 0RF aspirin [Children's Aspirin] 81 mg Tablet,Chewable 81 mg PO DAILY Qty: 30 0RF mupirocin 2 % Ointment 1 applic topical BID Qty: 30 0RF carboxymethylcellulose sodium [Refresh Plus] 0.5 % Dropperette 1 drp ophthalmic (eye) QID PRNQty: 10 0RF rosuvastatin 20 mg tablet 20 mg PO HS Qty: 30 0RF potassium chloride 10 mEq capsule, extended release 10 meq PO DAILY Qty: 30 0RF cephalexin 500 mg Capsule 500 mg PO QID Qty: 20 0RF Continued tamsulosin [Flomax] 0.4 mg capsule 0.8 mg PO HS pantoprazole 40 mg tablet,delayed release (DR/EC) 40 mg PO DAILY finasteride 5 mg tablet 5 mg PO DAILY duloxetine [Cymbalta] 60 mg capsule,delayed release(DR/EC) 60 mg PO DAILY amlodipine 5 mg tablet 5 mg PO DAILY Discharge Orders: Discharge Order (Routine); Ordered 02/19/23 Ordered By: Prince Oliveira Consulting provider completed their portion of the discharge: Yes Additional Instructions: continue aspirin and clopidogrel for 30 days then aspirin alone. Activity Level: Up with assist and Use Walker Discharge Diet: Regular Follow Up Appointments: [facility] [Outside] (Patient being discharged to [facility]) Provider,Not a Local [Primary Care Provider] - Discharge Comments: bladder scan as needed to evaluate for urinary retention twice daily: inspect knee abrasions, reapply antibiotic and gauze dressings Admit to: SNF Discharge Potential: Fair Length of Stay: 30-90 days Can use facility standing orders?: Yes Code Status: DNR/DNI Rehab Potential: Fair Therapy: Physical Therapy and Occupational Therapy Therapy Orders: Evaluate and Treat Oxygen: No Urinary Catheter: No Lab Orders: CBC, basic metabolic panel and liver function tests in one week
--- NOTE | 2023-02-19 10:14 | PC.NURSE ---
discharge pt has been pleasant sadly he is confused alert to self. pt has Repetitive statements. he does follow staff instructions. PT and OT worked with him today. no pain per pt when asked but then he will say my back hurts, Tylenol given per MAR, Mepilex to coccyx for redness and skin tear approximately the size of a dime, no drainage noted. both knees and right ankle dressing are C/D/I. Multiple scabs to right elbows & LE he is a fall risk adn alarms are on. he goes from 1 assist with walker to 2 assist and then Ez stand. he is incontinent of urine. both daughter are here. nurse to nurse was done. no SL. pt went over and signed personal belonging sheet. he got up to a w/c using Ez-stand and was put in to a w/c for transport.
== END 2023-02-19 10:00 | DRG 64 ==
LOC: ED 15:25 → MEDSURG 17:23
PROVIDERS: Family Medicine; Admitting Provider Internal Medicine; Emergency Provider Family Medicine; Visit Provider Internal Medicine
DX: I63.9 Cerebral infarction, unspecified (principal); G93.41 Metabolic encephalopathy; S06.0XAA Concussion with loss of consciousness status unknown, initial encounter; M62.82 Rhabdomyolysis; L03.116 Cellulitis of left lower limb; L03.115 Cellulitis of right lower limb; Z68.41 Body mass index [BMI] 40.0-44.9, adult; R48.2 Apraxia; R41.0 Disorientation, unspecified; F03.90 Unspecified dementia, unspecified severity, without behavioral disturbance, psychotic disturbance, mood disturbance, and anxiety; S09.90XA Unspecified injury of head, initial encounter; Z91.81 History of falling; R53.1 Weakness; R33.9 Retention of urine, unspecified; E86.0 Dehydration; D72.829 Elevated white blood cell count, unspecified; S80.212A Abrasion, left knee, initial encounter; S80.211A Abrasion, right knee, initial encounter; W18.30XA Fall on same level, unspecified, initial encounter; Y93.E1 Activity, personal bathing and showering; Y92.002 Bathroom of unspecified non-institutional (private) residence as the place of occurrence of the external cause; R26.81 Unsteadiness on feet; I10 Essential (primary) hypertension; E66.01 Morbid (severe) obesity due to excess calories; F32.9 Major depressive disorder, single episode, unspecified; E04.1 Nontoxic single thyroid nodule
CPT/HCPCS: 36415; 51701; 51798; 70450; 70551; 71045; 72125; 73560; 80048; 80053; 80076; 80306; 81001; 82077; 82550; 82803; 83036; 83605; 83690; 83735; 83880; 84100; 84145; 84443; 84484; 85025; 85027; 85610; 85730; 86140; 87040; 87086; 93005; 93306; 94761; 97110; 97116; 97162; 97166; 97530; 97535; 99284; 99291; A9270; G0390; J1650; J7030

== ENCOUNTER 2023-02-20 19:41 | Outpatient (CLI) | payer OTHER, SELFPAY | END 2023-02-20 19:42 | disposition home or self-care (01) | PROVIDERS: Visit Provider Family Medicine | DX: R53.1 Weakness (principal); Z91.81 History of falling | CPT/HCPCS: A0425; A0429 ==

== ENCOUNTER 2023-02-20 20:07 | Observation (INO) | payer OTHER, BC, MEDICARE, SELFPAY ==
[2023-02-20] VITALS (22 sets, daily range): BP systolic 132–190; BP diastolic 87–116; PULSE 73–101; RESP 18; TEMP 36.7; O2SAT 90–95; BMI 36.6; BMI 37.0
--- NOTE | 2023-02-20 20:07 | ED.FALL ---
HPI - Fall General Time Seen by Provider: 20:07 Date Seen: 02/20/23 Chief Complaint: Fall/Minor Trauma Stated Complaint: Fall Source: patient and EMS Mode of arrival: EMS Limitations: no limitations History of Present Illness HPI Narrative: Patient is [facility] resident found down in his room, doesn't remember what happened. Was found by staff on ground in his room. Denies any pain on arrival but later does state that his butt hurts. Doesn't have any head or neck pain, doesn't think that he hit his head but cannot give details. EMS noted glucose in 140's, has history of recent falls at [facility] and is noted to be total lift and not ambulatory anymore per report. Recent reported history of stroke. Details of this not known at this time. No reports of infectious concerns from [facility] staff to ambulance crew. Is on aspirin and plavix. Family reportedly wanted him checked out. MD complaint: fall Place fall occurred: half-way/SNF Related Data Home Medications Medication Instructions Recorded Confirmed amlodipine 5 mg tablet 5 mg PO DAILY 02/15/23 02/20/23 duloxetine 60 mg capsule,delayed 60 mg PO DAILY 02/15/23 02/20/23 release (Cymbalta) finasteride 5 mg tablet 5 mg PO DAILY 02/15/23 02/20/23 pantoprazole 40 mg tablet,delayed 40 mg PO DAILY 02/15/23 02/20/23 release tamsulosin 0.4 mg capsule (Flomax) 0.8 mg PO HS 02/15/23 02/20/23 acetaminophen 500 mg capsule 500 mg PO Q8H PRN 02/20/23 02/20/23 aspirin 81 mg chewable tablet 81 mg PO DAILY 02/20/23 02/20/23 (Children's Aspirin) carboxymethylcellulose sodium 0.5 1 drp ophthalmic (eye) QID PRN 02/20/23 02/20/23 % eye drops in a dropperette (Refresh Plus) cephalexin 500 mg capsule 500 mg PO QID 02/20/23 02/20/23 clopidogrel 75 mg tablet 75 mg PO DAILY 02/20/23 02/20/23 lorazepam 0.5 mg tablet (Ativan) 0.5 mg PO QID PRN 02/20/23 02/20/23 melatonin 3 mg tablet 3 mg PO HS PRN Insomnia 02/20/23 02/20/23 mupirocin 2 % topical ointment 1 applic topical BID 02/20/23 02/20/23 potassium chloride 10 mEq 10 meq PO DAILY 02/20/23 02/20/23 capsule,extended release rosuvastatin 20 mg tablet 20 mg PO HS 02/20/23 02/20/23 sennosides 8.6 mg-docusate sodium 2 tab PO DAILY PRN Constipation 02/20/23 02/20/23 50 mg tablet (Stool Softener-Laxative) Allergies Allergy/AdvReac Type Severity Reaction Status Date / Time No Known Drug Allergies Allergy Verified 02/20/23 20:48 Review of Systems Narrative: Denies problems initially on 10 point ROS but then complains of pain in his butt. Doubt his ability to give adequate ROS with dementia history. [facility] Medical History Dementia ?F03.90 - Unspecified dementia, unspecified severity, without behavioral disturbance, psychotic disturbance, mood disturbance, and anxiety (ICD-10) Delirium ?R41.0 - Disorientation, unspecified (ICD-10) History of leukocytosis ?Z86.2 - Personal history of diseases of the blood and blood-forming organs and certain disorders involving the immune mechanism (ICD-10) Spondylolisthesis at L4-L5 level ?M43.16 - Spondylolisthesis, lumbar region (ICD-10) Acute delirium ?R41.0 - Disorientation, unspecified (ICD-10) History of falling ?Z91.81 - History of falling (ICD-10) Gait instability ?R26.81 - Unsteadiness on feet (ICD-10) Muscle weakness ?M62.81 - Muscle weakness (generalized) (ICD-10) Obstructive sleep apnea ?G47.33 - Obstructive sleep apnea (adult) (pediatric) (ICD-10) Tobacco use disorder ?F17.200 - Nicotine dependence, unspecified, uncomplicated (ICD-10) Thyroid nodule ?E04.1 - Nontoxic single thyroid nodule (ICD-10) Shoulder pain ?M25.519 - Pain in unspecified shoulder (ICD-10) Osteoarthritis of knees, bilateral ?M17.0 - Bilateral primary osteoarthritis of knee (ICD-10) Morbid obesity ?E66.01 - Morbid (severe) obesity due to excess calories (ICD-10) Iron deficiency anemia ?D50.9 - Iron deficiency anemia, unspecified (ICD-10) Impaired fasting blood sugar ?R73.01 - Impaired fasting glucose (ICD-10) Benign prostatic hyperplasia with lower urinary tract symptoms ?N40.1 - Benign prostatic hyperplasia with lower urinary tract symptoms (ICD-10) Essential hypertension ?I10 - Essential (primary) hypertension (ICD-10) Gastroesophageal reflux disease ?K21.9 - Gastro-esophageal reflux disease without esophagitis (ICD-10) Major depressive disorder ?F32.9 - Major depressive disorder, single episode, unspecified (ICD-10) Surgical History Status post left knee replacement ?Z96.652 - Presence of left artificial knee joint (ICD-10) S/P cervical spinal fusion ?Z98.1 - Arthrodesis status (ICD-10) Family History Brother Diabetes Heart disease Mother Diabetes Polio Father Polio Social History Narrative: Retired. more than 40 years ago. Lives alone. DNR/DNI resuscitation status. POA: Ludivina (daughter), , and Rubi (daughter), . What is your current living situation?: I presently have a place to live Problems where you live: no known problems Problems where you live details: n/a In the past 12 months, utilities in danger of being shut off: no In the past 12 mos, have been you worried that your food would run out before you had money to buy more?: never true In the past 12 mos, the food you bought just didn't last and you didn't have money to buy more?: never true Highest level of school completed/degree received: high school graduate Smoking Status: Former smoker Do you use any of these nicotine containing products: None Second hand tobacco smoke exposure: No How often do you have a drink containing alcohol: 2-4 times a month How many standard drinks containing alcohol do you have on a typical day: 1 or 2 How often do you have six or more drinks on one occasion: Never AUDIT-C Alcohol total score: 2 Non-prescribed substance use: denies use Caffeine: Yes How often does anyone, including family, friends and others, physically hurt you: never How often does anyone, including family, friends and others, insult or talk down to you: never How often does anyone, including family, friends and others, threaten you with harm: never How often does anyone, including family, friends and others, scream or curse at you: never service: Yes Exam Const: Vital Signs, click to edit/add: Vital Signs - 24 hr 02/20/23 20:35 Temperature 98.0 F Pulse Rate [Right Pulse Oximeter] 85 Respiratory Rate 18 Blood Pressure [Ri ght Upper Arm] 132/92 H Pulse Oximetry 93 Oxygen Delivery Me thod Room Air Documenting provider has reviewed patient's vital signs: yes Common normals: no apparent distress and alert General appearance: cooperative, comfortable, disheveled and frail appearing Nutritional appearance: obese Orientation/consciousness: Yes awake Other: Is alert and pleasant but certainly has dementia. Answers yes/no questions but no attempts at in depth conversations. HENMT: Common normals: normocephalic, head/scalp atraumatic, hearing grossly normal bilaterally, external ears normal, EAC's normal and oropharynx normal Head and scalp: normocephalic and atraumatic Face and sinus: normal facial exam External ear: external ears normal External auditory canal: EAC's normal Other: No evidence of facial or oropharyngeal trauma at this time. Eye: Common normals: PERRL, EOMs intact bilaterally, conjunctivae normal and no scleral icterus Conjunctiva: conjunctiva(e) normal Pupil: PERRL Neck & C-Spine: Common normals: full ROM (No neck tenderness on palpation.), no lymphadenopathy, supple and no meningeal signs Chest: Common normals: inspection of chest normal Resp: Common normals: normal respiratory effort, no retractions, no use of accessory muscles and clear to auscultation bilaterally Auscultation: clear to auscultation bilaterally Cardio: Common normals: regular rate, regular rhythm, S1 normal heart sound, S2 normal heart sound, no gallops, no clicks and no murmurs Rate: regular rate Rhythm: regular rhythm Heart sounds: S1 normal and S2 normal GI: Common normals: Normal to inspection, nondistended, normoactive bowel sounds present, soft to palpation, non-tender, no hepatosplenomegaly and no masses Palpation: soft and no hepatosplenomegaly : Common normals: no CVA tenderness Bladder/kidney exam: no CVA tenderness Back & Pelvis: Common normals: no CVA tenderness, thoracic and lumbar spine normal to inspection and no thoracic nor lumbar tenderness Other: See bandage on left upper buttock area that has underlying pressure ulcer, not infected appearing. Extremity: Other: Bandages on both anterior knees dated today, taken down and has mild erythema and some excoriations/superficial abrasions both knees, no apparent evidence of worsening cellulitis/infection at this time. Neuro: [place] Coma Scale: document GCS findings [place] coma scale eye opening: Spontaneous (4) [place] coma scale verbal response: Confused (4) (but due to dementia, not obtunded in any way) [place] coma scale motor response: Obey commands (6) [place] coma scale total score: 14 Common normals: CN's II-XII intact bilaterally and moves all extremities Sensorium/orientation: awake and alert Meningeal signs: no meningeal signs Speech: speech normal Course Course Hospital Course: This is an 82-year-old male that reportedly was recently here, need to look at his recent hospitalization records. Will do chest, pelvis, knee films. Will do head CT given that he is on aspirin and Plavix and had an unwitnessed fall. Will do baseline chemistries on him and we will likely be able to compare to recent evaluation. Reevaluation(s) Time of Reevaluation #1: 22:30 Reevaluation #1: Reviewed with daughters labs in imaging. We are still waiting for his troponin and procalcitonin. The understand that her placing him back in the hospital to get admitted to nursing home facility where he can have appropriate cares. Daughters feel that he does better in the morning but by nighttime is owning and not safe in his current environment. Consultations Consultation #1: Nursing staff had alerted me to a conversation with [facility]. Mell the RN there stated that they could not take this patient back. They were unaware that he was in need of one-to-one care when he was discharged from our hospital and he is not in the correct level of care at the facility. They do not feel that they can provide the care required for him and request that this issue be resolved. 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 Again, he has underlying dementia and is a very high fall risk with need of more cares. I have spoken to our hospitalist Dr. Nelson and he requests that I contact [facility] for the admission. Have called at 10:27 p.m., they will contact the provider taking admission. Reviewed with hospitalist from [facility], they accept. Time: 22:18 Vital Signs Vital signs: Initial Vital Signs Temperature 98.0 F 02/20/23 20:35 Temperature Source Temporal Artery Scan 02/20/23 20:35 Pulse Rate 85 02/20/23 20:35 Respiratory Rate 18 02/20/23 20:35 Blood Pressure 132/92 H 02/20/23 20:35 Blood Pressure Mean 105 02/20/23 20:35 Blood Pressure Position Sitting 02/20/23 20:35 Pulse Oximetry 93 02/20/23 20:35 Oxygen Delivery Method Room Air 02/20/23 20:35 Vital Signs Temperature 98.0 F 02/20/23 20:35 Pulse Rate 85 02/20/23 20:35 Respiratory Rate 18 02/20/23 20:35 Blood Pressure 132/92 H 02/20/23 20:35 Pulse Oximetry 93 02/20/23 20:35 Oxygen Delivery Method Room Air 02/20/23 20:35 Temperature 98.0 F 02/20/23 20:35 Pulse Rate 85 02/20/23 20:35 Respiratory Rate 18 02/20/23 20:35 Blood Pressure 132/92 H 02/20/23 20:35 Pulse Oximetry 93 02/20/23 20:35 Oxygen Delivery Method Room Air 02/20/23 20:35 MDM - Fall Medical Records Attestation: I reviewed the patient's medical records. Medical records narrative: Reviewed recent records, was hospitalized to February 19 for new onset CVA, had altered mental status and hospital-acquired delirium likely contributed to By dementia and his stroke. He was having left arm a practice CO which was better. He also was found to have rhabdomyolysis his he was found down at home probably down for 48 hours. Had knee abrasions with superficial cellulitis treated with mupirocin and Keflex. He had elevated transaminases And LDH thought to be due to acute illness. thus, is just recently a new resident of the care facility as of yesterday. Lab Data Attestation: I reviewed the patient's lab results. Labs: Lab Results 02/20/23 02/20/23 02/20/23 Range/Units 20:14 20:19 20:30 WBC (4.50-11.00) K/uL RBC (4.30-5.90) m/uL Hgb (13.5-17.5) gm/dL Hct (37.0-53.0) % MCV (80-100) fL MCH (26-34) pg MCHC (32-36) gm/dL RDW Coeff of Brenda (11.5-15.5) % Plt Count (140-440) K/uL Neut % (Auto) (42.0-72.0) % Lymph % (Auto) (20-44) % Mccormick % (Auto) (0.0-11.0) % Eos % (Auto) (0.0-7.0) % Baso % (Auto) (0.0-3.0) % Neut # (Auto) (1.7-7.0) K/uL Lymph # (Auto) (0.90-2.90) K/uL Mccormick # (Auto) (0.00-0.90) K/UL Eos # (Auto) (0.00-0.50) K/uL Baso # (Auto) (0.00-0.30) K/uL Abs Immat Gran (auto) (0.00-0.30) K/uL Imm/Tot Granulo (auto) % Sodium Cancelled Potassium Cancelled Chloride Cancelled Carbon Dioxide Cancelled BUN Cancelled Creatinine Cancelled Estimated Creat Clear Cancelled Estimated GFR Cancelled Glucose Cancelled Lactate (0.5-1.9) mmol/L Calcium Cancelled Total Bilirubin Cancelled AST Cancelled ALT Cancelled Alkaline Phosphatase Cancelled Lactate Dehydrogenase Cancelled Total Creatine Kinase Cancelled Troponin I (0.01-0.04) ng/mL C-Reactive Protein Cancelled Total Protein Cancelled Albumin Cancelled Procalcitonin (<0.50) ng/mL Urine Color Yellow (Yellow) Urine Appearance Clear (Clear) Urine pH 6.5 (5.0-8.5) Ur Specific [place] 1.020 (1.000-1.030) Urine Protein Negative (Negative) Urine Glucose (UA) Negative (Negative) Urine Ketones Negative (Negative) Urine Blood Negative (Negative) Urine Nitrite Negative (Negative) Urine Bilirubin Negative (Negative) Urine Urobilinogen 2.0 A (0.2-1.0) Ur Leukocyte Esterase Negative (Negative) Urine RBC 0-2 (0-2) Urine WBC 0-2 (0-5) Ur Squamous Epith Cells None (None-Few) Urine Bacteria None (None) SARS-CoV-2 (PCR) Negative SARS-CoV-2 (Negative) Lab Acknowledgement 02/20/23 02/20/23 Range/Units 20:36 21:20 WBC 9.19 (4.50-11.00) K/uL RBC 4.27 L (4.30-5.90) m/uL Hgb 12.8 L (13.5-17.5) gm/dL Hct 37.7 (37.0-53.0) % MCV 88 (80-100) fL MCH 30 (26-34) pg MCHC 34 (32-36) gm/dL RDW Coeff of Brenda 13.1 (11.5-15.5) % Plt Count 179 (140-440) K/uL Neut % (Auto) 73.1 H (42.0-72.0) % Lymph % (Auto) 10.9 L (20-44) % Mccormick % (Auto) 9.7 (0.0-11.0) % Eos % (Auto) 4.4 (0.0-7.0) % Baso % (Auto) 0.8 (0.0-3.0) % Neut # (Auto) 6.70 (1.7-7.0) K/uL Lymph # (Auto) 1.00 (0.90-2.90) K/uL Mccormick # (Auto) 0.90 (0.00-0.90) K/UL Eos # (Auto) 0.40 (0.00-0.50) K/uL Baso # (Auto) 0.07 (0.00-0.30) K/uL Abs Immat Gran (auto) 0.10 (0.00-0.30) K/uL Imm/Tot Granulo (auto) 1.1 % Sodium 139 Potassium 3.5 L Chloride 108 Carbon Dioxide 27 BUN 16 Creatinine 0.9 Estimated Creat Clear 62.51 Estimated GFR 85 Glucose 122 H Lactate 1.2 (0.5-1.9) mmol/L Calcium 8.8 Total Bilirubin 0.5 AST 66 H ALT 81 H Alkaline Phosphatase 41 Lactate Dehydrogenase 345 H Total Creatine Kinase 229 H Troponin I 0.06 H* (0.01-0.04) ng/mL C-Reactive Protein 3.0 H Total Protein 6.3 Albumin 3.2 L Procalcitonin 0.10 (<0.50) ng/mL Urine Color (Yellow) Urine Appearance (Clear) Urine pH (5.0-8.5) Ur Specific [place] (1.000-1.030) Urine Protein (Negative) Urine Glucose (UA) (Negative) Urine Ketones (Negative) Urine Blood (Negative) Urine Nitrite (Negative) Urine Bilirubin (Negative) Urine Urobilinogen (0.2-1.0) Ur Leukocyte Esterase (Negative) Urine RBC (0-2) Urine WBC (0-5) Ur Squamous Epith Cells (None-Few) Urine Bacteria (None) SARS-CoV-2 (PCR) (Negative) Lab Acknowledgement Test Added Imaging Data CT scan - head: Attestation: I have reviewed the pertinent imaging results. Radiologist's impression: Patient: SHANTANU COHN Facility:?[facility] Patient ID:?[id number] Site Patient ID:?[id number]. Site :?[id number] Study:?CT Head w/o Contrast-02/20/2023 9:23:24 PM Ordering Physician:Juan José Vega Final Report: Indication: Fall Technique: Noncontrast head CT Comparison: Head CT 02/15/23 Findings: Generalized parenchymal volume. Periventricular hypo lucencies likely reflecting chronic small vessel ischemic change. No acute intracranial hemorrhage or mass. No midline shift. No abnormal extra-axial air or fluid collections are seen. Impression: No acute intracranial hemorrhage or mass. Please note that all CT scans at this facility use dose modulation, iterative reconstruction, and/or weight-based dosing when appropriate to reduce radiation dose to as low as reasonably achievable. Dictated by Lynette Mott MD @ 02/20/2023 9:38:57 PM (Electronic Signature) Chest x-ray: Attestation: I have reviewed the pertinent imaging results. My impression: Poor inspiratory effort but no acute pathology on my preliminary review. Radiologist's impression: Patient: SHANTANU COHN Facility:?[facility] Patient ID:?[id number] Site Patient ID:?[id number]. Site :?[id number] Study:?XRay Chest 1 view-02/20/2023 9:28:26 PM Ordering Physician:Juan José Vega Final Report: INDICATION: Fall TECHNIQUE: Single view chest. FINDINGS: The lungs are clear. The heart, mediastinum and pulmonary vessels are of normal size. There is no evidence of pleural disease. Bilateral humeral prostheses partially seen low lung volumes. No pneumothorax. IMPRESSION: Negative chest. Dictated by Lynette Mott MD @ 02/20/2023 9:39:51 PM (Electronic Signature) XR pelvis: Attestation: I have reviewed the pertinent imaging results. My impression: Left hip replacement, no acute pelvic fracture that I see. Await Radiology over-read. Radiologist's impression: Patient: SHANTANU COHN Facility:?[facility] Patient ID:?[id number] Site Patient ID:?[id number]. Site :?[id number] Study:?XRay Pelvis 1 view-02/20/2023 9:31:47 PM Ordering Physician:?Joseph Vega Final Report: INDICATION: Fall TECHNIQUE: AP pelvis and left hip views FINDINGS: Left hip arthroplasty. Normal alignment. No acute fractures seen. Lumbar fusion change partially seen. Dictated by Lynette Mott MD @ 02/20/2023 9:50:48 PM (Electronic Signature) XR right and left knees: Attestation: I have reviewed the pertinent imaging results. My impression: Bilateral knee prostheses seeing, I do not appreciate acute fracture on my preliminary review. Radiologist's impression: Patient: SHANTANU COHN Facility:?[facility] Patient ID:?[id number] Site Patient ID:?[id number]. Site :?[id number] Study:?XRay Knee Bilateral 2 views-02/20/2023 9:29:58 PM Ordering Physician:Juan José Vega Final Report: INDICATION: Fall TECHNIQUE: Views of both knees FINDINGS: Anterior soft tissue swelling. No knee effusion seen bilateral total knee arthroplasties. Normal alignment. No acute fractures seen. Dictated by Lynette Mott MD @ 02/20/2023 9:49:18 PM (Electronic Signature) ECG Data Attestation: I personally reviewed and interpreted this ECG as follows: (Sinus rhythm with sinus arrhythmia, 87 beats per minute. Left anterior fascicular block. Minimal voltage criteria for LVH, QT corrected 445 milliseconds.) ECG interpretation date: 02/20/23 ECG interpretation time: 20:32 Discharge Plan Discharge Clinical Impression: Fall Patient Disposition: Admitted As Observation Prescriptions: No Action tamsulosin [Flomax] 0.4 mg capsule 0.8 mg PO HS pantoprazole 40 mg tablet,delayed release (DR/EC) 40 mg PO DAILY Rx Instructions: AM finasteride 5 mg tablet 5 mg PO DAILY Rx Instructions: AM duloxetine [Cymbalta] 60 mg capsule,delayed release(DR/EC) 60 mg PO DAILY Rx Instructions: AM amlodipine 5 mg tablet 5 mg PO DAILY Rx Instructions: AM acetaminophen 500 mg capsule 500 mg PO Q8H PRN Patient Comments: Rx Instructions: PRN BID lorazepam [Ativan] 0.5 mg tablet 0.5 mg PO QID PRN Rx Instructions: PRN potassium chloride 10 mEq capsule, extended release 10 meq PO DAILY Rx Instructions: AM sennosides-docusate sodium [Stool Softener-Laxative] 8.6-50 mg Tablet 2 tab PO DAILY PRN (Reason: Constipation) Rx Instructions: PRN melatonin 3 mg Tablet 3 mg PO HS PRN (Reason: Insomnia) Rx Instructions: PM PRN clopidogrel 75 mg Tablet 75 mg PO DAILY Rx Instructions: AM cephalexin 500 mg Capsule 500 mg PO QID Rx Instructions: 4x/daily aspirin [Children's Aspirin] 81 mg Tablet,Chewable 81 mg PO DAILY Rx Instructions: AM mupirocin 2 % Ointment 1 applic topical BID Rx Instructions: AM, PM carboxymethylcellulose sodium [Refresh Plus] 0.5 % Dropperette 1 drp ophthalmic (eye) QID PRN Rx Instructions: PRN rosuvastatin 20 mg tablet 20 mg PO HS Rx Instructions: PM Follow Up/Referrals: Provider,Not a Local [Primary Care Provider] -
--- NOTE | 2023-02-20 20:12 | CRLHL7_ITS ---
For Patients: As a result of the Century Cures Act, medical imaging exams and procedure reports are released immediately into your electronic medical record. You may view this report before your referring provider. If you have questions, please contact your health care provider. INDICATION: Fall TECHNIQUE: Views of both knees FINDINGS: Anterior soft tissue swelling. No knee effusion seen bilateral total knee arthroplasties. Normal alignment. No acute fractures seen. Dictated by Lynette Mott MD @ 02/20/2023 9:49:18 PM (Electronically Signed)
--- NOTE | 2023-02-20 20:12 | CRLHL7_ITS ---
For Patients: As a result of the Cures Act, medical imaging exams and procedure reports are released immediately into your electronic medical record. You may view this report before your referring provider. If you have questions, please contact your health care provider. INDICATION: Fall TECHNIQUE: AP pelvis and left hip views FINDINGS: Left hip arthroplasty. Normal alignment. No acute fractures seen. Lumbar fusion change partially seen. Dictated by Lynette Mott MD @ 02/20/2023 9:50:48 PM (Electronically Signed)
--- NOTE | 2023-02-20 20:13 | CRLHL7_ITS ---
For Patients: As a result of the Century Cures Act, medical imaging exams and procedure reports are released immediately into your electronic medical record. You may view this report before your referring provider. If you have questions, please contact your health care provider. INDICATION: Fall TECHNIQUE: Single view chest. FINDINGS: The lungs are clear. The heart, mediastinum and pulmonary vessels are of normal size. There is no evidence of pleural disease. Bilateral humeral prostheses partially seen low lung volumes. No pneumothorax. IMPRESSION: Negative chest. Dictated by Lynette Mott MD @ 02/20/2023 9:39:51 PM (Electronically Signed)
--- NOTE | 2023-02-20 20:13 | CRLHL7_ITS ---
For Patients: As a result of the Century Cures Act, medical imaging exams and procedure reports are released immediately into your electronic medical record. You may view this report before your referring provider. If you have questions, please contact your health care provider. Indication: Fall Technique: Noncontrast head CT Comparison: Head CT 02/15/23 Findings: Generalized parenchymal volume. Periventricular hypo lucencies likely reflecting chronic small vessel ischemic change. No acute intracranial hemorrhage or mass. No midline shift. No abnormal extra-axial air or fluid collections are seen. Impression: No acute intracranial hemorrhage or mass. Please note that all CT scans at this facility use dose modulation, iterative reconstruction, and/or weight-based dosing when appropriate to reduce radiation dose to as low as reasonably achievable. Dictated by Lynette Mott MD @ 02/20/2023 9:38:57 PM (Electronically Signed)
[2023-02-20 20:23] LABS: Appearance Urine Clear (Clear); Bilirubin Urine Negative (Negative); Blood Urine Negative (Negative); Color Urine Yellow (Yellow); Glucose Urine Negative (Negative); Ketones Urine Negative (Negative); Leukocyte Esterase Urine Negative (Negative); Nitrite Urine Negative (Negative); Protein Urine Negative (Negative); pH Urine 6.5 (5.0-8.5)
[2023-02-20 20:56] LABS: RBC Urine 0-2 (0-2); WBC Urine 0-2 (0-5)
[2023-02-20 21:03] LABS: SARS PCR* Negative SARS-CoV-2 (Negative)
[2023-02-20 21:24] LABS: Lactate* 1.2 mmol/L (0.5-1.9)
[2023-02-20 21:32] LABS: Basophils Absolute Auto 0.07 K/uL (0.00-0.30); Basophils Percent Auto 0.8 % (0.0-3.0); Eosinophils Percent Auto 4.4 % (0.0-7.0); Hematocrit 37.7 % (37.0-53.0); Hemoglobin* 12.8 gm/dL (13.5-17.5); Immature Granulocytes Pct Auto 1.1 %; Lymphocytes Percent Auto 10.9 % (20-44); Mean Corpuscular HGB Conc 34 gm/dL (32-36); Mean Corpuscular Hemoglobin 30 pg (26-34); Mean Corpuscular Volume 88 fL (80-100); Monocytes Percent Auto 9.7 % (0.0-11.0); Neutrophils Percent Auto 73.1 % (42.0-72.0); Platelet Count* 179 K/uL (140-440); RDW Coefficient of Variation % 13.1 % (11.5-15.5); Red Blood Count 4.27 m/uL (4.30-5.90); White Blood Count* 9.19 K/uL (4.50-11.00)
[2023-02-20 21:43] LABS: Slide Review Reflex No
--- NOTE | 2023-02-20 21:54 | ED.NURSE ---
Call to [facility] to discuss medication list with ARCHIE. Mell RN providing more information regarding pt's situation and time of day for medication administration. Per RN, pt was hospitalized in [facility] and discharged two days ago. At time of discharge, RN states pt was in need of 1:1 care, but that this information was not given to RN at [facility]. Per RN, pt's family does not feel NR can provide the amount of care that pt is in need of. 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 RN states pt is a very high fall risk and is in need of more care. Pt's two daughters state they are concerned with pt returning to facility, and want him to go elsewhere where he can have more attention, fall alarms, etc. RN states that pt's daughters called 911 tonight for pt to be removed from facility. ARCHIE Monte states that social work has been involved in pt's situation. Pt's medication list updated with AM/PM/PRN medications.
[2023-02-20 22:12] LABS: Albumin* 3.2 g/dL (3.3-5.0); Chloride* 108 mmol/L (96-114); Sodium* 139 mmol/L (135-149)
[2023-02-20 22:13] LABS: Potassium* 3.5 mmol/L (3.6-5.1)
[2023-02-20 22:15] LABS: Alkaline Phosphatase* 41 U/L (40-150); Aspartate Amino Transferase* 66 U/L (12-35); Bilirubin Total* 0.5 mg/dL (0.1-1.5); Carbon Dioxide* 27 mmol/L (20-32); Creatinine* 0.9 mg/dL (0.5-1.5); Est. Creatinine Clearance* 62.51; Estimated Glomerular Filt Rate 85 ml/min; Lactate Dehydrogenase* 345 U/L (120-246); Total Protein* 6.3 g/dL (6.0-8.3)
[2023-02-20 22:16] LABS: Alanine Aminotransferase* 81 U/L (4-50); Blood Urea Nitrogen* 16 mg/dL (7-30); Calcium* 8.8 mg/dL (8.4-10.6); Creatine Kinase* 229 U/L (54-186); Glucose* 122 mg/dL (60-115)
[2023-02-20] MEDS: TAMSULOSIN HCL 0.4 MG CAPSULE PO (22:30)
[2023-02-20] MEDS: cephALEXin 500 MG CAPSULE PO (22:30)
[2023-02-20 22:31] LABS: Troponin I* 0.06 ng/mL (0.01-0.04)
[2023-02-20] MEDS: ROSUVASTATIN CALCIUM 10 MG TABLET 20 MG PO (22:34)
[2023-02-20] MEDS: ACETAMINOPHEN 325 MG TABLET 650 MG PO (23:13)
--- NOTE | 2023-02-20 23:54 | P.IMCN_ITS ---
Date of Consult Consult date: 02/21/23 Primary Care Provider: Not a Local Provider Consult Narrative Narrative: [facility] Hospitalist ADMISSION SUPPORT NOTE eHospitalist was contacted by Dr. Engle with request of admission support. Chief complaint: Hallucination and fall HPI: History was obtained from the ED provider as well as reviewing the EMR as the patient was admitted with fall and confusion. The patient was recently ho spitalized and discharged on 02/19 after a stroke with residual left sided apraxia. He was discharged to assisted living however per report he became confused with hallucinations and sustained a fall. Given the level of nursing care the patient requires, per report the assisted living facility stated that the patient would not be able to return there given his needs. So he is being admitted for observation and for mcc placement. Review of systems other than mentioned above is negative Home Medications: Reviewed see EMR for details Pertinent Medical History: Dementia, stroke, obstructive sleep apnea, degenerative joint disease, BPH, hypertension, GERD, depression, left knee replacement, cervical spinal fusion Pertinent Social History: Ex-smoker [facility] Medical History Dementia ?F03.90 - Unspecified dementia, unspecified severity, without behavioral disturbance, psychotic disturbance, mood disturbance, and anxiety (ICD-10) Delirium ?R41.0 - Disorientation, unspecified (ICD-10) History of leukocytosis ?Z86.2 - Personal history of diseases of the blood and blood-forming organs and certain disorders involving the immune mechanism (ICD-10) Spondylolisthesis at L4-L5 level ?M43.16 - Spondylolisthesis, lumbar region (ICD-10) Acute delirium ?R41.0 - Disorientation, unspecified (ICD-10) History of falling ?Z91.81 - History of falling (ICD-10) Gait instability ?R26.81 - Unsteadiness on feet (ICD-10) Muscle weakness ?M62.81 - Muscle weakness (generalized) (ICD-10) Obstructive sleep apnea ?G47.33 - Obstructive sleep apnea (adult) (pediatric) (ICD-10) Tobacco use disorder ?F17.200 - Nicotine dependence, unspecified, uncomplicated (ICD-10) Thyroid nodule ?E04.1 - Nontoxic single thyroid nodule (ICD-10) Shoulder pain ?M25.519 - Pain in unspecified shoulder (ICD-10) Osteoarthritis of knees, bilateral ?M17.0 - Bilateral primary osteoarthritis of knee (ICD-10) Morbid obesity ?E66.01 - Morbid (severe) obesity due to excess calories (ICD-10) Iron deficiency anemia ?D50.9 - Iron deficiency anemia, unspecified (ICD-10) Impaired fasting blood sugar ?R73.01 - Impaired fasting glucose (ICD-10) Benign prostatic hyperplasia with lower urinary tract symptoms ?N40.1 - Benign prostatic hyperplasia with lower urinary tract symptoms (ICD- 10) Essential hypertension ?I10 - Essential (primary) hypertension (ICD-10) Gastroesophageal reflux disease ?K21.9 - Gastro-esophageal reflux disease without esophagitis (ICD-10) Major depressive disorder ?F32.9 - Major depressive disorder, single episode, unspecified (ICD-10) Surgical History Status post left knee replacement ?Z96.652 - Presence of left artificial knee joint (ICD-10) S/P cervical spinal fusion ?Z98.1 - Arthrodesis status (ICD-10) Family History Brother Diabetes Heart disease Mother Diabetes Polio Father Polio Social History Narrative: Retired. more than 40 years ago. Lives alone. DNR/DNI resuscitation status. POA: Ludivina (daughter), , and Rubi (daughter), . What is your current living situation?: I presently have a place to live Problems where you live: no known problems Problems where you live details: n/a In the past 12 months, utilities in danger of being shut off: no In the past 12 mos, have been you worried that your food would run out before you had money to buy more?: never true In the past 12 mos, the food you bought just didn't last and you didn't have money to buy more?: never true Highest level of school completed/degree received: high school graduate Smoking Status: Former smoker Do you use any of these nicotine containing products: None Second hand tobacco smoke exposure: No How often do you have a drink containing alcohol: 2-4 times a month How many standard drinks containing alcohol do you have on a typical day: 1 or 2 How often do you have six or more drinks on one occasion: Never AUDIT-C Alcohol total score: 2 Non-prescribed substance use: denies use Caffeine: Yes How often does anyone, including family, friends and others, physically hurt you : never How often does anyone, including family, friends and others, insult or talk down to you: never How often does anyone, including family, friends and others, threaten you with harm: never How often does anyone, including family, friends and others, scream or curse at you: never service: Yes Meds Home Medications and Allergies Home Medications Medication Instructions Recorded Confirmed Type amlodipine 5 mg tablet 5 mg PO DAILY 02/15/23 02/20/23 History duloxetine 60 mg capsule,delayed 60 mg PO DAILY 02/15/23 02/20/23 History release (Cymbalta) finasteride 5 mg tablet 5 mg PO DAILY 02/15/23 02/20/23 History pantoprazole 40 mg tablet,delayed 40 mg PO DAILY 02/15/23 02/20/23 History release tamsulosin 0.4 mg capsule (Flomax) 0.8 mg PO HS 02/15/23 02/20/23 History acetaminophen 500 mg capsule 500 mg PO Q8H PRN 02/20/23 02/20/23 History aspirin 81 mg chewable tablet 81 mg PO DAILY 02/20/23 02/20/23 History (Children's Aspirin) carboxymethylcellulose sodium 0.5 1 drp ophthalmic (eye) QID PRN 02/20/23 02/20/23 History % eye drops in a dropperette (Refresh Plus) cephalexin 500 mg capsule 500 mg PO QID 02/20/23 02/20/23 History clopidogrel 75 mg tablet 75 mg PO DAILY 02/20/23 02/20/23 History lorazepam 0.5 mg tablet (Ativan) 0.5 mg PO QID PRN 02/20/23 02/20/23 History melatonin 3 mg tablet 3 mg PO HS PRN Insomnia 02/20/23 02/20/23 History mupirocin 2 % topical ointment 1 applic topical BID 02/20/23 02/20/23 History potassium chloride 10 mEq 10 meq PO DAILY 02/20/23 02/20/23 History capsule,extended release rosuvastatin 20 mg tablet 20 mg PO HS 02/20/23 02/20/23 History sennosides 8.6 mg-docusate sodium 2 tab PO DAILY PRN Constipation 02/20/23 02/20/23 History 50 mg tablet (Stool Softener-Laxative) Allergies Allergy/AdvReac Type Severity Reaction Status Date / Time No Known Drug Allergies Allergy Verified 02/20/23 20:48 Exam Narrative: Exam Narrative: Exam (performed via interactive video with assistance of bedside nurse): General: Alert, cooperative, no acute distress HEENT: Oral mucosa pink and moist without erythema, fair dentition Lungs: Clear to auscultation bilaterally without crackle or wheeze but diminished throughout CV: Regular rate and rhythm without loud murmur rub or gallop Ext: No pitting edema noted Skin: No rashes, bruises or lesions appreciated on gross visualization of exposed skin Neuro: Alert, oriented x 3 however he thought he was in a different hospital but did know that he was actually in a hospital. CN III -VII, XI, XII grossly intact, moves all extremities without any significant focal deficit appreciated by nurse Const: Vital Signs, click to edit/add: Vital Signs - 24 hr 02/20/23 20:19 02/20/23 20:23 02/20/23 20:35 Temperature 98.0 F Pulse Rate 101 H 87 Pulse Rate [Left P ulse Oximeter] Pulse Rate [Right Pulse Oximeter] 85 Respiratory Rate 18 Blood Pressure 162/92 H Blood Pressure [Ri ght Arm] Blood Pressure [Ri ght Upper Arm] 132/92 H Pulse Oximetry 90 90 93 Oxygen Delivery Me thod Room Air 02/20/23 21:14 02/20/23 21:15 02/20/23 21:16 Temperature Pulse Rate 83 87 85 Pulse Rate [Left P ulse Oximeter] Pulse Rate [Right Pulse Oximeter] Respiratory Rate Blood Pressure 163/95 H Blood Pressure [Ri ght Arm] Blood Pressure [Ri ght Upper Arm] Pulse Oximetry 90 90 90 Oxygen Delivery Me thod 02/20/23 21:30 02/20/23 21:30 02/20/23 21:33 Temperature Pulse Rate 85 86 Pulse Rate [Left P ulse Oximeter] Pulse Rate [Right Pulse Oximeter] Respiratory Rate Blood Pressure 190/90 H Blood Pressure [Ri ght Arm] Blood Pressure [Ri ght Upper Arm] Pulse Oximetry 90 95 90 Oxygen Delivery Me thod 02/20/23 21:36 02/20/23 21:45 02/20/23 22:00 Temperature Pulse Rate 86 85 73 Pulse Rate [Left P ulse Oximeter] Pulse Rate [Right Pulse Oximeter] Respiratory Rate Blood Pressure 163/87 H Blood Pressure [Ri ght Arm] Blood Pressure [Ri ght Upper Arm] Pulse Oximetry 90 90 90 Oxygen Delivery Me thod 02/20/23 22:03 02/20/23 22:30 02/20/23 22:33 Temperature Pulse Rate 83 79 87 Pulse Rate [Left P ulse Oximeter] Pulse Rate [Right Pulse Oximeter] Respiratory Rate Blood Pressure 155/94 H 157/93 H Blood Pressure [Ri ght Arm] Blood Pressure [Ri ght Upper Arm] Pulse Oximetry 90 90 90 Oxygen Delivery In thod 02/20/23 22:46 02/20/23 23:00 02/20/23 23:03 Temperature Pulse Rate 79 81 82 Pulse Rate [Left P ulse Oximeter] Pulse Rate [Right Pulse Oximeter] Respiratory Rate Blood Pressure 166/116 H Blood Pressure [Ri ght Arm] Blood Pressure [Ri ght Upper Arm] Pulse Oximetry 90 90 90 Oxygen Delivery Me thod 02/20/23 23:13 02/20/23 23:15 02/20/23 23:28 Temperature 98.0 F 98.0 F Pulse Rate 78 Pulse Rate [Left P ulse Oximeter] Pulse Rate [Right Pulse Oximeter] 92 Respiratory Rate 18 Blood Pressure Blood Pressure [Ri ght Arm] Blood Pressure [Ri ght Upper Arm] 135/88 Pulse Oximetry 92 92 Oxygen Delivery Me thod Room Air 02/20/23 23:30 02/20/23 23:51 Temperature 98.0 F Pulse Rate 80 Pulse Rate [Left P ulse Oximeter] 82 Pulse Rate [Right Pulse Oximeter] Respiratory Rate 18 Blood Pressure Blood Pressure [Ri ght Arm] 153/89 H Blood Pressure [Ri ght Upper Arm] Pulse Oximetry 90 90 Oxygen Delivery Me od Room Air Labs Labs: Short CBC 02/20/23 Range/Units 21:20 WBC 9.19 (4.50-11.00) K/uL Hgb 12.8 L (13.5-17.5) gm/dL Hct 37.7 (37.0-53.0) % Plt Count 179 (140-440) K/uL BMP 02/20/23 02/20/23 20:14 21:20 Sodium Cancelled 139 Potassium Cancelled 3.5 L Chloride Cancelled 108 Carbon Dioxide Cancelled 27 BUN Cancelled 16 Creatinine Cancelled 0.9 Glucose Cancelled 122 H Calcium Cancelled 8.8 Cardiac Enzymes 02/20/23 02/20/23 Range/Units 20:14 21:20 Total Creatine Kinase Cancelled 229 H Troponin I 0.06 H* (0.01-0.04) ng/mL Liver Function 02/20/23 02/20/23 Range/Units 20:14 21:20 Total Bilirubin Cancelled 0.5 AST Cancelled 66 H ALT Cancelled 81 H Alkaline Phosphatase Cancelled 41 Albumin Cancelled 3.2 L Urine 02/20/23 Range/Units 20:19 Urine Color Yellow (Yellow) Urine Appearance Clear (Clear) Urine pH 6.5 (5.0-8.5) Ur Specific [place] 1.020 (1.000-1.030) Urine Protein Negative (Negative) Urine Glucose (UA) Negative (Negative) Assessment and Plan Assessment and plan (1) Fall: Status: Acute (2) Dementia: Problem comment: Patient appears to have dementia. Cognitive testing recommended once he has improved from his delirium Status: Acute Plan Recent lab/knee x-ray/pelvic x-ray/CXR/CT head: Reviewed see EMR for details Assessment and Plan: 1. Hallucinations-likely related to dementia compounded by recent delirium during hospitalization. He also went to a new facility and likely this also contributed to his level of confusion. He seems to have improved at the time of my evaluation. No serious injuries noted after the fall. Consider as needed Seroquel if symptoms worsen. 2. Hypertension-continue amlodipine 3. Recent stroke-continue Plavix 4. Depression-continue Cymbalta 5. BPH-continue finasteride and Flomax 6. Dyslipidemia-continue statin 7. GERD-continue Protonix 8. DVT prophylaxis-Lovenox 9. CODE STATUS DNR per documentation on POLST form Chart review was performed as well as evaluation of the patient via video. Thank you for involving ehospitalist. Please contact [phone] if further assistance is needed.
[2023-02-21] VITALS (8 sets, daily range): BP systolic 127–161; BP diastolic 67–87; PULSE 59–88; RESP 16–20; TEMP 36.3–36.6; O2SAT 90–92
--- NOTE | 2023-02-21 06:06 | PC.NURSE ---
2329-: Pt alert to being in a hospital although thought it was [place] and being the year 2022, as the night progressed patient becoming restless kicking legs off side of the bed, thus t&r frequently q30-90m, mepilex to coccyx ulcer, pt reorientable no delirium at this time, cooperative. No neuro changes since admission and my memory from patients recent hospital stay.
--- NOTE | 2023-02-21 10:14 | PM.IMHP1 ---
Hospitalist- H&P: HPI History of Present Illness Date Seen: 02/21/23 Chief complaint: Fall Narrative: Ken Zamora is a 82 year old male readmitted to the hospital from the residential with delirium and a fall. Patient initially hospitalized here from February 15 to 02/19/2023 after a fall at home where he was living independently. At that time he was delirious. 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 He was also felt to have dementia. During his hospital stay initially he had delirium with agitation. This was present early in the hospital stay and improved through his hospital stay. He remained confused through his hospital stay this was thought to due to underlying dementia. He was discharged to the [facility]. There he had an episode of delirium and also had a fall and was found on the floor. Evaluation emergency room did not find any acute injury on head CT, chest x-ray, pelvic x-ray, knee radiographs. He is admitted the hospital because residential was unable to take him back due to his increased need for care. This morning patient is back to his baseline with confusion but no agitation. He does not recall any of the recent events. Nursing staff note no significant problems overnight. Bladder scan this morning shows less than 100 mL of urine in his bladder. Review of Systems Narrative: See recent hospital notes for details of recent events. Other than the episode in the last day in the residential he has been generally doing well. No trouble breathing. No fever no indication of pain. [facility] Medical History Dementia ?F03.90 - Unspecified dementia, unspecified severity, without behavioral disturbance, psychotic disturbance, mood disturbance, and anxiety (ICD-10) Delirium ?R41.0 - Disorientation, unspecified (ICD-10) History of leukocytosis ?Z86.2 - Personal history of diseases of the blood and blood-forming organs and certain disorders involving the immune mechanism (ICD-10) Spondylolisthesis at L4-L5 level ?M43.16 - Spondylolisthesis, lumbar region (ICD-10) Acute delirium ?R41.0 - Disorientation, unspecified (ICD-10) History of falling ?Z91.81 - History of falling (ICD-10) Gait instability ?R26.81 - Unsteadiness on feet (ICD-10) Muscle weakness ?M62.81 - Muscle weakness (generalized) (ICD-10) Obstructive sleep apnea ?G47.33 - Obstructive sleep apnea (adult) (pediatric) (ICD-10) Tobacco use disorder ?F17.200 - Nicotine dependence, unspecified, uncomplicated (ICD-10) Thyroid nodule ?E04.1 - Nontoxic single thyroid nodule (ICD-10) Shoulder pain ?M25.519 - Pain in unspecified shoulder (ICD-10) Osteoarthritis of knees, bilateral ?M17.0 - Bilateral primary osteoarthritis of knee (ICD-10) Morbid obesity ?E66.01 - Morbid (severe) obesity due to excess calories (ICD-10) Iron deficiency anemia ?D50.9 - Iron deficiency anemia, unspecified (ICD-10) Impaired fasting blood sugar ?R73.01 - Impaired fasting glucose (ICD-10) Benign prostatic hyperplasia with lower urinary tract symptoms ?N40.1 - Benign prostatic hyperplasia with lower urinary tract symptoms (ICD-10) Essential hypertension ?I10 - Essential (primary) hypertension (ICD-10) Gastroesophageal reflux disease ?K21.9 - Gastro-esophageal reflux disease without esophagitis (ICD-10) Major depressive disorder ?F32.9 - Major depressive disorder, single episode, unspecified (ICD-10) Surgical History Status post left knee replacement ?Z96.652 - Presence of left artificial knee joint (ICD-10) S/P cervical spinal fusion ?Z98.1 - Arthrodesis status (ICD-10) Family History Brother Diabetes Heart disease Mother Diabetes Polio Father Polio Social History (Updated 02/21/23 @ 10:21 by Prince Oliveira MD) Narrative: Retired. more than 40 years ago. Lives alone. DNR/DNI resuscitation status. POA: Ludivina (daughter), , and Rubi (daughter), . Living independently until hospitalization earlier this week when he was transferred to [facility]. What is your current living situation?: I presently have a place to live Problems where you live: no known problems Problems where you live details: n/a In the past 12 months, utilities in danger of being shut off: no In the past 12 mos, have been you worried that your food would run out before you had money to buy more?: never true In the past 12 mos, the food you bought just didn't last and you didn't have money to buy more?: never true Highest level of school completed/degree received: high school graduate Smoking Status: Former smoker Do you use any of these nicotine containing products: None Second hand tobacco smoke exposure: No How often do you have a drink containing alcohol: 2-4 times a month How many standard drinks containing alcohol do you have on a typical day: 1 or 2 How often do you have six or more drinks on one occasion: Never AUDIT-C Alcohol total score: 2 Non-prescribed substance use: denies use Caffeine: Yes How often does anyone, including family, friends and others, physically hurt you: never How often does anyone, including family, friends and others, insult or talk down to you: never How often does anyone, including family, friends and others, threaten you with harm: never How often does anyone, including family, friends and others, scream or curse at you: never service: Yes Meds Home Medications and Allergies Home Medications Medication Instructions Recorded Confirmed Type amlodipine 5 mg tablet 5 mg PO DAILY 02/15/23 02/20/23 History duloxetine 60 mg capsule,delayed 60 mg PO DAILY 02/15/23 02/20/23 History release (Cymbalta) finasteride 5 mg tablet 5 mg PO DAILY 02/15/23 02/20/23 History pantoprazole 40 mg tablet,delayed 40 mg PO DAILY 02/15/23 02/20/23 History release tamsulosin 0.4 mg capsule (Flomax) 0.8 mg PO HS 02/15/23 02/20/23 History acetaminophen 500 mg capsule 500 mg PO Q8H PRN 02/20/23 02/20/23 History aspirin 81 mg chewable tablet 81 mg PO DAILY 02/20/23 02/20/23 History (Children's Aspirin) carboxymethylcellulose sodium 0.5 1 drp ophthalmic (eye) QID PRN 02/20/23 02/20/23 History % eye drops in a dropperette (Refresh Plus) cephalexin 500 mg capsule 500 mg PO QID 02/20/23 02/20/23 History clopidogrel 75 mg tablet 75 mg PO DAILY 02/20/23 02/20/23 History lorazepam 0.5 mg tablet (Ativan) 0.5 mg PO QID PRN 02/20/23 02/20/23 History melatonin 3 mg tablet 3 mg PO HS PRN Insomnia 02/20/23 02/20/23 History mupirocin 2 % topical ointment 1 applic topical BID 02/20/23 02/20/23 History potassium chloride 10 mEq 10 meq PO DAILY 02/20/23 02/20/23 History capsule,extended release rosuvastatin 20 mg tablet 20 mg PO HS 02/20/23 02/20/23 History sennosides 8.6 mg-docusate sodium 2 tab PO DAILY PRN Constipation 02/20/23 02/20/23 History 50 mg tablet (Stool Softener-Laxative) Allergies Allergy/AdvReac Type Severity Reaction Status Date / Time No Known Drug Allergies Allergy Verified 02/20/23 20:48 Exam Narrative: Exam Narrative: He is alert and appears in no distress. Speech is normal. He is articulate. He is not oriented to day. He does know he is in the hospital but thinks he is in [place]. Head is without obvious trauma. Oropharynx with small airway. Neck is supple without mass or adenopathy. Respirations are clear to auscultation. Cardiovascular: S1, S2, relatively regular rate rhythm. Abdomen is soft without tenderness or mass. Extremities with 1+ edema. He moves all 4 extremities well. He has symmetric strength in his upper extremities. [id number]-[id number] is accurate. He lower extremities also with symmetric strength though weak in proportion to his body mass. Const: Vital Signs, click to edit/add: Vital Signs - 24 hr 02/20/23 20:19 02/20/23 20:23 02/20/23 20:35 Temperature 98.0 F Pulse Rate 101 H 87 Pulse Rate [Left P ulse Oximeter] Pulse Rate [Right Pulse Oximeter] 85 Respiratory Rate 18 Blood Pressure 162/92 H Blood Pressure [Ri ght Arm] Blood Pressure [Ri ght Upper Arm] 132/92 H Pulse Oximetry 90 90 93 Oxygen Delivery Me thod Room Air 02/20/23 21:14 02/20/23 21:15 02/20/23 21:16 Temperature Pulse Rate 83 87 85 Pulse Rate [Left P ulse Oximeter] Pulse Rate [Right Pulse Oximeter] Respiratory Rate Blood Pressure 163/95 H Blood Pressure [Ri ght Arm] Blood Pressure [Ri ght Upper Arm] Pulse Oximetry 90 90 90 Oxygen Delivery Me thod 02/20/23 21:30 02/20/23 21:30 02/20/23 21:33 Temperature Pulse Rate 85 86 Pulse Rate [Left P ulse Oximeter] Pulse Rate [Right Pulse Oximeter] Respiratory Rate Blood Pressure 190/90 H Blood Pressure [Ri ght Arm] Blood Pressure [Ri ght Upper Arm] Pulse Oximetry 90 95 90 Oxygen Delivery Me thod 02/20/23 21:36 02/20/23 21:45 02/20/23 22:00 Temperature Pulse Rate 86 85 73 Pulse Rate [Left P ulse Oximeter] Pulse Rate [Right Pulse Oximeter] Respiratory Rate Blood Pressure 163/87 H Blood Pressure [Ri ght Arm] Blood Pressure [Ri ght Upper Arm] Pulse Oximetry 90 90 90 Oxygen Delivery Oh thod 02/20/23 22:03 02/20/23 22:30 02/20/23 22:33 Temperature Pulse Rate 83 79 87 Pulse Rate [Left P ulse Oximeter] Pulse Rate [Right Pulse Oximeter] Respiratory Rate Blood Pressure 155/94 H 157/93 H Blood Pressure [Ri ght Arm] Blood Pressure [Ri ght Upper Arm] Pulse Oximetry 90 90 90 Oxygen Delivery Me thod 02/20/23 22:46 02/20/23 23:00 02/20/23 23:03 Temperature Pulse Rate 79 81 82 Pulse Rate [Left P ulse Oximeter] Pulse Rate [Right Pulse Oximeter] Respiratory Rate Blood Pressure 166/116 H Blood Pressure [Ri ght Arm] Blood Pressure [Ri ght Upper Arm] Pulse Oximetry 90 90 90 Oxygen Delivery Oh thod 02/20/23 23:13 02/20/23 23:15 02/20/23 23:28 Temperature 98.0 F 98.0 F Pulse Rate 78 Pulse Rate [Left P ulse Oximeter] Pulse Rate [Right Pulse Oximeter] 92 Respiratory Rate 18 Blood Pressure Blood Pressure [Ri ght Arm] Blood Pressure [Ri ght Upper Arm] 135/88 Pulse Oximetry 92 92 Oxygen Delivery Oh thod Room Air 02/20/23 23:30 02/20/23 23:51 02/21/23 03:44 Temperature 98.0 F 97.4 F L Pulse Rate 80 Pulse Rate [Left P ulse Oximeter] 82 83 Pulse Rate [Right Pulse Oximeter] Respiratory Rate 18 16 Blood Pressure Blood Pressure [Ri ght Arm] 153/89 H 127/83 Blood Pressure [Ri ght Upper Arm] Pulse Oximetry 90 90 90 Oxygen Delivery Me thod Room Air Room Air 02/21/23 07:00 02/21/23 07:20 Temperature 97.9 F Pulse Rate Pulse Rate [Left P ulse Oximeter] 79 79 Pulse Rate [Right Pulse Oximeter] Respiratory Rate 16 16 Blood Pressure Blood Pressure [Ri ght Arm] 159/87 H Blood Pressure [Ri ght Upper Arm] Pulse Oximetry 92 Oxygen Delivery Me thod Room Air Documenting provider has reviewed patient's vital signs: yes Hospitalist - H&P: Result Labs Labs: Short CBC 02/20/23 Range/Units 21:20 WBC 9.19 (4.50-11.00) K/uL Hgb 12.8 L (13.5-17.5) gm/dL Hct 37.7 (37.0-53.0) % Plt Count 179 (140-440) K/uL BMP 02/20/23 02/20/23 20:14 21:20 Sodium Cancelled 139 Potassium Cancelled 3.5 L Chloride Cancelled 108 Carbon Dioxide Cancelled 27 BUN Cancelled 16 Creatinine Cancelled 0.9 Glucose Cancelled 122 H Calcium Cancelled 8.8 Cardiac Enzymes 02/20/23 02/20/23 Range/Units 20:14 21:20 Total Creatine Kinase Cancelled 229 H Troponin I 0.06 H* (0.01-0.04) ng/mL Liver Function 02/20/23 02/20/23 Range/Units 20:14 21:20 Total Bilirubin Cancelled 0.5 AST Cancelled 66 H ALT Cancelled 81 H Alkaline Phosphatase Cancelled 41 Albumin Cancelled 3.2 L Urine 02/20/23 Range/Units 20:19 Urine Color Yellow (Yellow) Urine Appearance Clear (Clear) Urine pH 6.5 (5.0-8.5) Ur Specific [place] 1.020 (1.000-1.030) Urine Protein Negative (Negative) Urine Glucose (UA) Negative (Negative) Assessment and Plan Assessment and plan (1) Delirium: Problem comment: Recurrent hospital-acquired delirium. Delirium is better though fluctuating. Patient is confused/disoriented even when he is not appearing delirious. Status: Acute (2) Dementia: Problem comment: Patient appears to have dementia. Cognitive testing recommended once he has improved from his delirium Status: Acute (3) Fall: Problem comment: High risk for fall due to weakness, recent stroke and cognitive impairment Status: Acute (4) Cellulitis and abscess of leg: Problem comment: Abrasions over both knees, left greater than right with erythema over both prepatellar area is left greater than right. Treat with mupirocin and Keflex due to presence of cellulitis and knee prosthesis. Appears better on readmission. Status: Acute (5) Stroke: Problem comment: Likely the primary trigger for the initial fall and subsequent confusion at home. 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 Patient has improved with apraxia. Recommend statin, aspirin, clopidogrel. Stop clopidogrel after 1 month. Status: Acute (6) Urinary retention: Problem comment: 700 ml in ED 02/15/2023. Removed catheter and monitor for ability to empty bladder. Continue to monitor bladder scan as needed for urinary retention. Addressed constipation. Urinary retention better on readmission Status: Acute (7) Progressive gait disorder: Problem comment: Combination of poor balance and weakness. Transfer to longterm facility Status: Acute Plan Continue in hospital pending safe discharge plan. I anticipate that his delirium will improve in a stable and familiar environment. Any move is likely to cause temporary problems with agitation and delirium Total time spent today is 60 minutes, 40 minutes in coordination of care and discussing with patient's family and other providers ongoing evaluation management of dementia and delirium
[2023-02-21] MEDS: AMLODIPINE 5 MG TABLET PO (10:59)
[2023-02-21] MEDS: cephALEXin 500 MG CAPSULE PO ×4 (10:59→21:17)
[2023-02-21] MEDS: ACETAMINOPHEN 325 MG TABLET 650 MG PO ×2 (11:02→16:59)
[2023-02-21] MEDS: POTASSIUM CHLORIDE 10 MEQ CAPSULE ER PO (11:02)
[2023-02-21] MEDS: ASPIRIN 81 MG TAB.CHEW PO (11:03)
[2023-02-21] MEDS: DULOXETINE 30 MG CAPSULE DR 60 MG PO (11:03)
[2023-02-21] MEDS: CLOPIDOGREL 75 MG TABLET PO (11:03)
[2023-02-21] MEDS: FINASTERIDE 5 MG TABLET PO (11:04)
[2023-02-21] MEDS: OMEPRAZOLE 20 MG CAPSULE DR 40 MG PO (11:07)
--- NOTE | 2023-02-21 14:47 | PC.NURSE ---
End of shift nursing note, care provided from [id number]: Pt alert and oriented to self, and intermit location. Vitals stable, on RA. Pt incontinent of urine in brief and also attempts to use urinal, often too late, but some output captured. Brief changed multiple times throughout day, sacral mepilex placed this AM and dressing to stage 3 wound replaced this afternoon. Meds whole w/ water. Pt ate lunch up in chair, back to bed after for nap. Per report pt didn't get much sleep last night, napped a couple times during day, pt reports feeling more rested. Ax2 w/ stand and pivot, w/ walker and GB. Daughters visited during shift. BM smear this AM. MARY ALICE wraps to BLE as TEDs not appropriate with pt's lower leg wounds. Dressings to BLE CDI. Turn and repo Q2hrs w/ Ax2. Neuro checks intact, mild weakness remains in R arm. PT/OT worked w/ pt this shift. Pt has bed alarm on and call light within reach.
--- NOTE | 2023-02-21 15:35 | PC.SOCIAL ---
Addendum entered by DORIS Khan 02/21/23 15:40: Received clarification from Gill Jones at [facility] stating that [facility] will not accept pt back, even if pt has medication adjusted. Original Note: Discharge planning- Phone call to pt's daughter (Ludivina) at [phone]. Discussed discharge plans and placement options. Ludivina is calling the [facility] to discuss services that can be offered. Ludivina is ok with this worker checking with [facility] and [facility] at [place] for placement. Discussed possible geriatric psych placement and daughter states that she is very against pt being sent to a geriatric psych placement and would like to check with SNF's discussed and [facility]. Phone call to Mandi at [facility] to check on availability at [facility]. Mandi informs that [facility] will soon have an opening and she will assess pt for possible admission. Faxed referral to [facility] at [phone]. Phone call to Sandy at the [facility] at [place]. Discussed pt's status. Sandy informs that the [facility] will assess. Faxed referral to [phone]. Social work will follow up as needed.
--- NOTE | 2023-02-21 18:09 | PC.NURSE ---
Pt pleasant and cooperative during shift (15-19). Pt alert to self. Pt assist of two. Pt had on complaints of generalized aches see EMAR for intervention. VSS. Daughter visiting with Pt during shift. Pt up to chair for part of shift.?
[2023-02-21] MEDS: ROSUVASTATIN CALCIUM 10 MG TABLET 20 MG PO (21:16)
[2023-02-21] MEDS: TAMSULOSIN HCL 0.4 MG CAPSULE 0.8 MG PO (21:17)
[2023-02-21] MEDS: ACETAMINOPHEN 500 MG TABLET PO (21:17)
[2023-02-21] MEDS: MELATONIN 3 MG TABLET PO (21:17)
[2023-02-21] MEDS: ENOXAPARIN 40 MG/0.4 ML INJ SUBCUT (21:17)
[2023-02-21] MEDS: MUPIROCIN 1 GM PACKET 1 APPLIC TOPICAL (21:34)
--- NOTE | 2023-02-21 22:35 | PC.NURSE ---
Shift [id number]- Patient in bed this evening. Repositioned and pericares provided, barrier cream applied. He is incontinent. Mepilex to coccyx clean, dry and intact. He is able to answer orientation questions correctly this evening. Dressings to bilateral knees changed with medicated ointment application- see eMAR.
[2023-02-22] VITALS (8 sets, daily range): BP systolic 144–177; BP diastolic 73–92; PULSE 66–79; RESP 16–20; TEMP 36.1–36.6; O2SAT 89–92
--- NOTE | 2023-02-22 06:41 | PC.NURSE ---
Shift note: Pt oriented to himself, his surrounding and situation. Pt tries to get out of bed occasionally, he is heavily incontinent of urine. Pt is able to assist in bed with turning and reposition.
[2023-02-22] MEDS: OMEPRAZOLE 20 MG CAPSULE DR 40 MG PO (08:08)
[2023-02-22] MEDS: DULOXETINE 30 MG CAPSULE DR 60 MG PO (09:07)
[2023-02-22] MEDS: cephALEXin 500 MG CAPSULE PO ×4 (09:08→20:29)
[2023-02-22] MEDS: CLOPIDOGREL 75 MG TABLET PO (09:08)
[2023-02-22] MEDS: ACETAMINOPHEN 325 MG TABLET 650 MG PO ×3 (09:08→20:29)
[2023-02-22] MEDS: SENNOSIDES/DOCUSATE TABLET 1 TAB PO (09:08)
[2023-02-22] MEDS: FINASTERIDE 5 MG TABLET PO (09:08)
[2023-02-22] MEDS: POTASSIUM CHLORIDE 10 MEQ CAPSULE ER PO (09:09)
[2023-02-22] MEDS: AMLODIPINE 5 MG TABLET PO (09:09)
[2023-02-22] MEDS: ASPIRIN 81 MG TAB.CHEW PO (09:09)
[2023-02-22] MEDS: MUPIROCIN 1 GM PACKET 1 APPLIC TOPICAL ×2 (09:09→20:29)
--- NOTE | 2023-02-22 13:11 | P.IMPN_ITS ---
Progress Note: A&P Assessment and plan (1) Delirium: Problem details: Recurrent hospital-acquired delirium. Delirium is better though fluctuating. Patient is confused/disoriented even when he is not appearing delirious. Status: Acute (2) Dementia: Problem details: Patient appears to have dementia. Cognitive testing recommended once he has improved from his delirium Status: Acute (3) Fall: Problem details: High risk for fall due to weakness, recent stroke and cognitive impairment Status: Acute (4) Cellulitis and abscess of leg: Problem details: Abrasions over both knees, left greater than right with erythema over both prepatellar area is left greater than right. Treat with mupirocin and Keflex due to presence of cellulitis and knee prosthesis. Getting much better - probably only needs 1 or 2 more days of oral antibiotics. Status: Acute (5) Stroke: Problem details: Likely the primary trigger for the initial fall and subsequent confusion at home. 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 Patient has improved with apraxia. Recommend statin, aspirin, clopidogrel. Stop clopidogrel after 1 month. Status: Acute (6) Urinary retention: Problem details: 700 ml in ED 02/15/2023. Removed catheter and monitor for ability to empty bladder. Continue to monitor bladder scan as needed for urinary retention. Addressed constipation. Urinary retention better on readmission Status: Acute (7) Progressive gait disorder: Problem details: Combination of poor balance and weakness. Transfer to group home facility Status: Acute (8) Hypertension: Problem details: After his stroke he received permissive hypertension. Will now reinstitute blood pressure control gradually Status: Acute Plan Continue in-hospital to monitor confusion and delirium and manage chronic medical problems. Generally doing well. Likely will do well 1 see is established in a facility where it becomes familiar to him. Time Spent With Patient Total time spent: Total time spent today is 35 minutes, 30 minutes in coordination of care discussing with patient and other providers disposition plans and management of problems as listed above Subjective Date Seen: 02/22/23 Interval history: Ken Zamora is a 82 year old male readmitted to the hospital from the skilled nursing with delirium and a fall. Patient initially hospitalized here from February 15 to 02/19/2023 after a fall at home where he was living independently. At that time he was delirious. 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 He was also felt to have dementia. During his hospital stay initially he had delirium with agitation. This was present early in the hospital stay and improved through his hospital stay. He remained confused through his hospital stay this was thought to due to underlying dementia. He was discharged to the [facility]. There he had an episode of delirium and also had a fall and was found on the floor. Evaluation emergency room did not find any acute injury on head CT, chest x-ray, pelvic x-ray, knee radiographs. He is admitted the hospital because skilled nursing was unable to take him back due to his increased need for care. He is back to his baseline with confusion and forgetfulness and occasional episodes of mild agitation. This morning he is better than he has usually been. He does know that he is in the hospital for the 1st time this past week he does not recall why he is here or the events leading up to this. He has no concerns this morning. Exam Narrative: Exam Narrative: He is alert and appears in no distress. He is pleasant. Speech is normal. He is oriented to being in the hospital. No facial asymmetry. He moves all 4 extremities well. Respirations are clear to auscultation. Cardiovascular: S1, S2, regular rate and rhythm. No murmur gallop or rub. Abdomen is soft without tenderness or mass. Abrasions and ulcerations over his knees bilaterally are markedly improved. Const: Vital Signs, click to edit/add: Vital Signs - 24 hr 02/21/23 15:30 02/21/23 19:36 02/21/23 23:00 Temperature 97.6 F Pulse Rate [Left P ulse Oximeter] 72 82 Respiratory Rate 20 16 16 Blood Pressure [Le ft Arm] Blood Pressure [Ri ght Arm] 158/67 H 151/78 H Pulse Oximetry 91 90 Oxygen Delivery Me thod Room Air Room Air 02/21/23 23:00 02/21/23 23:30 02/22/23 03:00 Temperature 98 F Pulse Rate [Left P ulse Oximeter] 59 L Respiratory Rate 18 18 20 Blood Pressure [Le ft Arm] Blood Pressure [Ri ght Arm] 161/87 H Pulse Oximetry 90 Oxygen Delivery Me thod Room Air 02/22/23 05:44 02/22/23 08:30 02/22/23 08:30 Temperature 97.6 F Pulse Rate [Left P ulse Oximeter] 76 76 Respiratory Rate 16 16 16 Blood Pressure [Le ft Arm] Blood Pressure [Ri ght Arm] 175/73 H Pulse Oximetry 90 Oxygen Delivery Me thod Room Air 02/22/23 11:25 Temperature 97.4 F L Pulse Rate [Left P ulse Oximeter] 66 Respiratory Rate 16 Blood Pressure [Le ft Arm] 177/88 H Blood Pressure [Ri ght Arm] Pulse Oximetry 91 Oxygen Delivery Me thod Room Air Documenting provider has reviewed patient's vital signs: yes
[2023-02-22] MEDS: lisinopriL 5 MG TABLET PO (14:06)
--- NOTE | 2023-02-22 14:31 | PC.NURSE ---
End of shift nursing note: Pt alert to self and able to state it is February of 2023. States generalized discomfort in AM, PRN Tylenol admin and pt states effectiveness, denying pain at recheck. Pt vitally stable, aside from BP being elevated sys in the 170s despite scheduled BP meds this AM, updated and new order this afternoon for Lisinopril 5mg, admin med, pt and pt's daughter updated and aware med being added QD as well. BP recheck of 144/76. Pt up to recliner for large portion of shift, declined going back to bed until 1400, but stood at recliner multiple times for position change. Up w/ Ax2, walker and gaitbelt. Up to commode this AM, had large formed BM. Washed up, new gown, & new MARY ALICE wraps to BLE, knee wounds open to air, free of drainage. Dressing to lower back changed. Incontinent of urine, brief changed PRN. Pt did complain of R index finger having a burning sensation briefly during shift, finger free of swelling, warmth and redness. Pt still able to bend and use finger, updated, when poem writer rechecked with pt he said it has resolved, will notify next RN as well. Pt repo onto L side in bed, bed alarm on for safety promotion. Daughter at bedside. Call light within reach.
--- NOTE | 2023-02-22 15:07 | PC.SOCIAL ---
Discharge planning- Received a phone call from pt's daughter (Ludivina). Ludivina informs that pt has [facility] coverage that she would like to use for SNF. Clarified that Ludivina is wanting to use a SNF contracted with [facility], if possible, and not wanting pt to go directly to a [place] long term. Received a follow up phone call from Sandy at the [facility] and she informs that nursing is assessing pt for possible admission. Sandy asked a few follow up questions for clarification. Sandy will call back with a decision on admission. Phone call to Mandi in admissions at [facility], left voicemail following up on referral sent to them for possible admission. Phone call to pt's daughter (Ludivina) and provided her with an update. Social work will follow up as needed.
[2023-02-22] MEDS: TAMSULOSIN HCL 0.4 MG CAPSULE 0.8 MG PO (20:28)
[2023-02-22] MEDS: MELATONIN 3 MG TABLET PO (20:29)
[2023-02-22] MEDS: ROSUVASTATIN CALCIUM 10 MG TABLET 20 MG PO (20:29)
[2023-02-22] MEDS: ENOXAPARIN 40 MG/0.4 ML INJ SUBCUT (20:29)
--- NOTE | 2023-02-22 22:33 | PC.NURSE ---
Shift [id number]- Patient cooperative throughout shift. He has some confusion this evening, but remains pleasant. He is up with EZ stand this evening and tolerates well- to chair for meal, then to bed this evening. He is heavily incontinent- pericares provided. He is also repositioned with pillows for offloading. Knees are open to air, appears to be healing well. Dressing to coccyx replaced.
[2023-02-23] VITALS (7 sets, daily range): BP systolic 146–175; BP diastolic 74–99; PULSE 79–87; RESP 18–20; TEMP 36.2–37.1; O2SAT 90–93
--- NOTE | 2023-02-23 06:57 | PC.NURSE ---
[id number]: Patient pleasant and cooperative during noc. Slept well. Alert to self, place, and year. Total urinary incontinence changing pad Q2-3 hr. T&R Q2-3 hr. Mepilex to Coccyx changed. Balbir wraps in place.
[2023-02-23] MEDS: OMEPRAZOLE 20 MG CAPSULE DR 40 MG PO (07:03)
[2023-02-23] MEDS: DULOXETINE 30 MG CAPSULE DR 60 MG PO (09:28)
[2023-02-23] MEDS: CLOPIDOGREL 75 MG TABLET PO (09:28)
[2023-02-23] MEDS: POTASSIUM CHLORIDE 10 MEQ CAPSULE ER PO (09:28)
[2023-02-23] MEDS: lisinopriL 5 MG TABLET PO (09:29)
[2023-02-23] MEDS: AMLODIPINE 5 MG TABLET PO (09:29)
[2023-02-23] MEDS: cephALEXin 500 MG CAPSULE PO ×4 (09:29→19:25)
[2023-02-23] MEDS: FINASTERIDE 5 MG TABLET PO (09:29)
[2023-02-23] MEDS: SENNOSIDES/DOCUSATE TABLET 1 TAB PO (09:29)
[2023-02-23] MEDS: ASPIRIN 81 MG TAB.CHEW PO (09:29)
[2023-02-23] MEDS: MUPIROCIN 1 GM PACKET 1 APPLIC TOPICAL ×2 (09:35→19:27)
[2023-02-23] MEDS: SODIUM CHLORIDE 0.9 % (FLUSH) 10 ML SYRINGE 5 ML IVF (09:35)
--- NOTE | 2023-02-23 12:06 | PM.IMPN1 ---
Progress Note: A&P Assessment and plan (1) Delirium: Problem details: - recurrent hospital-acquired delirium, with tient is confused/disoriented even when he is not appearing delirious. Status: Acute (2) Dementia: Problem details: - formal cognitive testing Status: Acute (3) Fall: Problem details: - High risk for fall due to weakness, recent stroke and cognitive impairment - therapies following Status: Acute (4) Cellulitis and abscess of leg: Problem details: - Abrasions over both knees, L>R - on Mupirocin and Keflex due to presence of cellulitis and knee prosthesis Status: Acute (5) Stroke: Problem details: - likely the primary trigger for the initial fall and subsequent confusion, left arm apraxia also likely CVA sequela - continue statin, aspirin, clopidogrel (Stop clopidogrel after 1 month) Status: Acute (6) Urinary retention: Problem details: - h/o this, improved after bowel regimen Status: Acute (7) Progressive gait disorder: Problem details: - Combination of poor balance, recent CVA, weakness. Transfer to group home facility Status: Acute (8) Hypertension: Problem details: - permissive HTN after recent CVA, now back on Amlodipine and Lisinopril (increase Lisinopril from 5 -->10mg on 02/23) Status: Acute Plan - await placement - ASA, Plavix, Lovenox for ppx - daughter updated at bedside, questions answered Subjective Date Seen: 02/23/23 Interval history: Ej is a pleasant 82 yo male who was re-admitted to the hospital on 02/20 after being discharged to the snf on 02/19. Prior to previous hospital stay, he had been living independently, then on 02/15 was diagnosed with a CVA in the L mid-centrum semiovale, in addition to cognitive impairment. He was discharged to the [facility] for therapies; had another episode of presumable delirium and had a fall. No new injuries identified during ER visit on 02/20. Given fall risk, dementia, comorbidities, he was readmitted to the hospital to assist with placement/disposition. Ej has no concerns for the hospitalist team this morning. He is eating breakfast when I see him. Daughter Rubi in room. Exam Narrative: Exam Narrative: GEN: Pleasant and sitting comfortably in bedside chair HEENT: EOMIs bilaterally, no scleral icterus CV: RRR, No concerning murmurs R: LCTA bilaterally without concerning wheezing Skin: Abrasions over bilateral knees, hemostatic He is able to stand with therapies so I can examine his back and buttocks; there is an open wound on his coccyx without evidence of acute infection, there is also hyperpigmentation inferior to this wound concerning for early pressure injury. Psych: MCI evident, no agitation Const: Vital Signs, click to edit/add: Vital Signs - 24 hr 02/22/23 14:05 02/22/23 15:10 02/22/23 19:00 Temperature 97 F L 98 F Pulse Rate [Left P ulse Oximeter] 78 79 Respiratory Rate 16 16 Blood Pressure [Le ft Arm] 157/92 H 167/78 H Blood Pressure [Ri ght Arm] 144/76 H Pulse Oximetry 92 89 Oxygen Delivery Me thod Room Air Room Air 02/22/23 23:12 02/23/23 06:00 02/23/23 07:00 Temperature Pulse Rate [Left P ulse Oximeter] 79 Respiratory Rate 20 20 20 Blood Pressure [Le ft Arm] Blood Pressure [Ri ght Arm] Pulse Oximetry Oxygen Delivery Me thod 02/23/23 07:00 Temperature 97.8 F Pulse Rate [Left P ulse Oximeter] 79 Respiratory Rate 20 Blood Pressure [Le ft Arm] 175/99 H Blood Pressure [Ri ght Arm] Pulse Oximetry 93 Oxygen Delivery Me thod Room Air
--- NOTE | 2023-02-23 18:42 | PC.NURSE ---
End of shift: Patient pleasant and cooperative throughout shift, had a nap before lunch and patient was repositioned with pillows on his side to stay off skin tear on left butt cheek. He is up with EZ stand this morning and tolerated well- to chair for breakfast, then walker/gait belt throughout the day to transition from bed to chair and vice versa. He is heavily incontinent and seamus-cares provided by RN and HEIDI, pad changed throughout the shift. Knees are open to air, appears to be healing well. Dressing to coccyx replaced x1 and dressing to skin tear on left butt cheek replaced x2, patient states that site hurts the most. VSS, on RA, afebrile this shift. Plan is to continue in hospital for placement at a SNF. Daughters present at bedside throughout the day.
[2023-02-23] MEDS: ROSUVASTATIN CALCIUM 10 MG TABLET 20 MG PO (19:25)
[2023-02-23] MEDS: ENOXAPARIN 40 MG/0.4 ML INJ SUBCUT (19:25)
[2023-02-23] MEDS: TAMSULOSIN HCL 0.4 MG CAPSULE 0.8 MG PO (19:26)
[2023-02-23] MEDS: MELATONIN 3 MG TABLET PO (19:26)
[2023-02-23] MEDS: ACETAMINOPHEN 325 MG TABLET 650 MG PO (19:26)
[2023-02-24] VITALS (7 sets, daily range): BP systolic 130–174; BP diastolic 66–87; PULSE 63–76; RESP 16–20; TEMP 36.1–36.5; O2SAT 82–94
--- NOTE | 2023-02-24 05:30 | PC.NURSE ---
SHIFT NOTE : Pt alert, periodic confusion, easily reoriented. Incontinent of a large amount of urine overnight, Mepilex to coccyx changed. Denies pain, SOB, CP, and N/V. Up 2 assist to the recliner this AM with walker, tolerated well.
[2023-02-24] MEDS: OMEPRAZOLE 20 MG CAPSULE DR 40 MG PO (06:05)
[2023-02-24 06:55] LABS: Basophils Absolute Auto 0.09 K/uL (0.00-0.30); Basophils Percent Auto 1.2 % (0.0-3.0); Eosinophils Absolute Auto 0.37 K/uL (0.00-0.50); Hematocrit 41.1 % (37.0-53.0); Hemoglobin* 13.8 gm/dL (13.5-17.5); Immature Granulocytes Pct Auto 1.3 %; Lymphocytes Percent Auto 17.2 % (20-44); Mean Corpuscular HGB Conc 34 gm/dL (32-36); Mean Corpuscular Hemoglobin 29 pg (26-34); Mean Corpuscular Volume 87 fL (80-100); Monocytes Percent Auto 7.5 % (0.0-11.0); Neutrophils Absolute Auto 5.03 K/uL (1.7-7.0); Neutrophils Percent Auto 67.8 % (42.0-72.0); Platelet Count* 199 K/uL (140-440); RDW Coefficient of Variation % 12.8 % (11.5-15.5); Red Blood Count 4.71 m/uL (4.30-5.90); White Blood Count* 7.43 K/uL (4.50-11.00)
[2023-02-24 07:03] LABS: Slide Review Reflex No
[2023-02-24 07:04] LABS: Albumin* 3.5 g/dL (3.3-5.0); Chloride* 107 mmol/L (96-114)
[2023-02-24 07:05] LABS: Potassium* 3.4 mmol/L (3.6-5.1); Sodium* 140 mmol/L (135-149)
[2023-02-24 07:07] LABS: Alkaline Phosphatase* 49 U/L (40-150); Aspartate Amino Transferase* 36 U/L (12-35); Bilirubin Total* 0.5 mg/dL (0.1-1.5); Blood Urea Nitrogen* 14 mg/dL (7-30); Carbon Dioxide* 28 mmol/L (20-32); Creatinine* 0.7 mg/dL (0.5-1.5); Est. Creatinine Clearance* 62.51; Estimated Glomerular Filt Rate 92 ml/min; Total Protein* 6.7 g/dL (6.0-8.3)
[2023-02-24 07:08] LABS: Alanine Aminotransferase* 49 U/L (4-50); Gamma Glutamyl Transpeptidase* 24 U/L (8-55); Glucose* 106 mg/dL (60-115); Magnesium* 2.1 mg/dL (1.5-2.6)
--- NOTE | 2023-02-24 07:53 | PM.IMPN1 ---
Progress Note: A&P Assessment and plan (1) Delirium: Problem details: - recurrent hospital-acquired delirium, with tieadri is confused/disoriented even when he is not appearing delirious Status: Acute (2) Dementia: Problem details: Status: Acute (3) Stroke: Problem details: - likely the primary trigger for the initial fall and subsequent confusion, left arm apraxia also likely CVA sequela - continue statin, aspirin, clopidogrel (Stop clopidogrel after 1 month) Status: Acute (4) Fall: Problem details: - High risk for fall due to weakness, recent stroke and cognitive impairment - therapies following Status: Acute (5) Cellulitis and abscess of leg: Problem details: - Abrasions over both knees, L>R - on Mupirocin and Keflex (02/21) due to presence of cellulitis and knee prosthesis Status: Acute (6) Urinary retention: Problem details: - h/o this, improved after bowel regimen Status: Acute (7) Progressive gait disorder: Problem details: - Combination of poor balance, recent CVA, weakness. SNF upon discharge Status: Acute (8) Hypertension: Problem details: - permissive HTN after recent CVA, now back on Amlodipine and Lisinopril (increase Lisinopril from 5 -->10mg on 02/23) Status: Acute Plan - per above, awaiting placement - Lovenox for ppx Subjective Date Seen: 02/24/23 Interval history: Ej is a pleasant 82 yo male who was re-admitted to the hospital on 02/20 after being discharged to the halfway on 02/19. He was diagnosed with a CVA on 02/15 (L mid-centrum semiovale), also noted to have MCI with delirium. Had a fall at the [facility] on 02/20 after being admitted for rehab, re-admitted. Will require a higher level of care upon d/c in addition to memory support. Ej has no concerns this morning. Exam Narrative: Exam Narrative: GEN: Alert and sitting comfortably in bedside chair, awaiting his breakfast HEENT: EOMIs bilaterally, no scleral icterus CV: RRR, No concerning murmurs R: LCTA bilaterally without concerning wheezing, air movement adequate Ext: Wearing Balbir wraps bilateral lower extremities Skin: Bilateral knee abrasions, stable. Sacrum not formally examined today Neuro: Nonfocal Psych: Appropriate Const: Vital Signs, click to edit/add: Vital Signs - 24 hr 02/23/23 11:00 02/23/23 15:00 02/23/23 15:00 Temperature 98.7 F 97.1 F L Pulse Rate [Left P ulse Oximeter] 87 83 83 Respiratory Rate 18 18 18 Blood Pressure [Ri ght Arm] 151/79 H 154/78 H Pulse Oximetry 90 91 Oxygen Delivery Me thod Room Air Room Air 02/23/23 19:00 02/23/23 23:00 02/23/23 23:00 Temperature 97.6 F 97.2 F L Pulse Rate [Left P ulse Oximeter] 82 Respiratory Rate 18 18 18 Blood Pressure [Ri ght Arm] 146/74 H Pulse Oximetry 90 Oxygen Delivery Me thod Room Air 02/23/23 23:30 02/24/23 03:00 02/24/23 05:51 Temperature Pulse Rate [Left P ulse Oximeter] Respiratory Rate 18 20 20 Blood Pressure [Ri ght Arm] Pulse Oximetry Oxygen Delivery Me thod Labs Labs: Laboratory Results - last 24 hr 02/24/23 06:01 WBC 7.43 RBC 4.71 Hgb 13.8 Hct 41.1 MCV 87 MCH 29 MCHC 34 RDW Coeff of Brenda 12.8 Plt Count 199 Neut % (Auto) 67.8 Lymph % (Auto) 17.2 L Garvin % (Auto) 7.5 Eos % (Auto) 5.0 Baso % (Auto) 1.2 Neut # (Auto) 5.03 Lymph # (Auto) 1.30 Garvin # (Auto) 0.60 Eos # (Auto) 0.37 Baso # (Auto) 0.09 Abs Immat Gran (auto) 0.10 Imm/Tot Granulo (auto) 1.3 Sodium 140 Potassium 3.4 L Chloride 107 Carbon Dioxide 28 BUN 14 Creatinine 0.7 Estimated Creat Clear 62.51 Estimated GFR 92 Glucose 106 Calcium 9.0 Magnesium 2.1 Total Bilirubin 0.5 GGT 24 AST 36 H ALT 49 Alkaline Phosphatase 49 Total Protein 6.7 Albumin 3.5
[2023-02-24] MEDS: POTASSIUM CHLORIDE 10 MEQ CAPSULE ER PO (09:12)
[2023-02-24] MEDS: DULOXETINE 30 MG CAPSULE DR 60 MG PO (09:12)
[2023-02-24] MEDS: SENNOSIDES/DOCUSATE TABLET 1 TAB PO (09:12)
[2023-02-24] MEDS: FINASTERIDE 5 MG TABLET PO (09:13)
[2023-02-24] MEDS: lisinopriL 10 MG TABLET PO (09:13)
[2023-02-24] MEDS: ASPIRIN 81 MG TAB.CHEW PO (09:13)
[2023-02-24] MEDS: MUPIROCIN 1 GM PACKET 1 APPLIC TOPICAL ×2 (09:13→20:31)
[2023-02-24] MEDS: CLOPIDOGREL 75 MG TABLET PO (09:13)
[2023-02-24] MEDS: cephALEXin 500 MG CAPSULE PO ×4 (09:13→20:31)
[2023-02-24] MEDS: AMLODIPINE 5 MG TABLET PO (09:13)
[2023-02-24] MEDS: POTASSIUM BICARB 25 MEQ EFFERVESCENT TAB PO ×2 (12:45→14:45)
--- NOTE | 2023-02-24 13:11 | PC.NURSE ---
End of shift: Patient pleasant and cooperative throughout shift, had a nap before lunch and patient was repositioned with pillows on his side to stay off skin tear on left butt cheek. He is up with SBA walker/GB to chair for breakfast, then walker/gait belt throughout the day to transition from bed to chair and vice versa. He is heavily incontinent and seamus-cares provided by RN and HEIDI, pad changed throughout the shift. Knees are open to air, appears to be healing well. Dressing to coccyx removed and left open to air, and dressing to skin tear on left butt cheek replaced x1 after patient had a shower with OT and HEIDI assistance, patient states that site hurts the most. VSS, on RA, afebrile this shift. Plan is to continue in hospital for placement at a SNF. Daughters present at bedside throughout the day.
[2023-02-24] MEDS: ACETAMINOPHEN 325 MG TABLET 650 MG PO (17:18)
[2023-02-24] MEDS: ENOXAPARIN 40 MG/0.4 ML INJ SUBCUT (20:30)
[2023-02-24] MEDS: ROSUVASTATIN CALCIUM 10 MG TABLET 20 MG PO (20:30)
[2023-02-24] MEDS: TAMSULOSIN HCL 0.4 MG CAPSULE 0.8 MG PO (20:30)
[2023-02-24] MEDS: MELATONIN 3 MG TABLET PO (20:31)
--- NOTE | 2023-02-24 22:45 | PC.NURSE ---
Shift [id number]- Patient is pleasant and cooperative. Tylenol provided for aches and pain control. He is up with A/2, walker, gait belt or EZ stand, tolerates well. He is up to chair for supper this evening. Pericares provided for incontinence.
[2023-02-25 05:41] VITALS: RESP 18
--- NOTE | 2023-02-25 05:46 | PC.NURSE ---
[id number]: Patient cooperative with cares. Alert to self and place. Incontinent. Frequent T&R. Appeared to rest well during noc.
[2023-02-25] MEDS: OMEPRAZOLE 20 MG CAPSULE DR 40 MG PO (06:15)
[2023-02-25 08:32] VITALS: BP 151/105; PULSE 85; RESP 18; TEMP 36.7; O2SAT 92
[2023-02-25] MEDS: DULOXETINE 30 MG CAPSULE DR 60 MG PO (08:40)
[2023-02-25] MEDS: AMLODIPINE 5 MG TABLET PO (08:40)
[2023-02-25] MEDS: ASPIRIN 81 MG TAB.CHEW PO (08:40)
[2023-02-25] MEDS: CLOPIDOGREL 75 MG TABLET PO (08:40)
[2023-02-25] MEDS: FINASTERIDE 5 MG TABLET PO (08:40)
[2023-02-25] MEDS: cephALEXin 500 MG CAPSULE PO (08:40)
[2023-02-25] MEDS: lisinopriL 10 MG TABLET PO (08:40)
[2023-02-25] MEDS: SODIUM CHLORIDE 0.9 % (FLUSH) 10 ML SYRINGE 5 ML IVF (08:41)
[2023-02-25] MEDS: MUPIROCIN 1 GM PACKET 1 APPLIC TOPICAL (08:41)
[2023-02-25] MEDS: POTASSIUM CHLORIDE 10 MEQ CAPSULE ER PO (08:41)
--- NOTE | 2023-02-25 11:19 | PM.IMPN1 ---
Progress Note: A&P Assessment and plan (1) Fall: Problem details: - High risk for fall due to weakness, recent stroke and cognitive impairment - therapies following Status: Acute (2) Cellulitis and abscess of leg: Problem details: - Abrasions over both knees, L>R - on Mupirocin and Keflex (02/21) due to presence of cellulitis and knee prosthesis Status: Acute (3) Delirium: Problem details: - recurrent hospital-acquired delirium, often is confused/disoriented even when he is not appearing delirious Status: Acute (4) Stroke: Problem details: - likely the primary trigger for the initial fall and subsequent confusion, left arm apraxia also likely CVA sequela - continue statin, aspirin, clopidogrel (Stop clopidogrel after 1 month) Status: Acute (5) Hypertension: Problem details: - permissive HTN after recent CVA, now back on Amlodipine and Lisinopril (increase Lisinopril from 5 -->10mg on 02/23) Status: Acute (6) Progressive gait disorder: Problem details: - Combination of poor balance, recent CVA, weakness. SNF upon discharge Status: Acute (7) Progressive cognitive dysfunction: Problem details: preexisting before CVA would benefit from neuropsych testing/screening by Neuropsychology or occupational therapy once the acute phase of rehab is completed as an inpatient Status: Acute Subjective Date Seen: 02/25/23 Interval history: Daily Progress Note - Hospital Medicine #:6 CC: h/o of stroke (late January), delirium, falling. awaiting placement in SNF/Memory Care. OVERNIGHT UPDATES FROM STAFF & MED, LAB, IMAGING UPDATES stable night. mentally more clear. walking farther today. dragging right foot and needing cuing and support. spoke with daughter Rubi and learned more about patient. 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 lived alone for years. in/out of delirium since stroke. Retired. more than 40 years ago. Lives alone. DNR/DNI resuscitation status. POA: Ludivina (daughter), , and Rubi (daughter), . Living independently until hospitalization Objective: mostly alert; somewhat quiet. knows he's in the hospital for a fall. Vitals: see above Lungs: Clear. Cardiac: S1S2. skin: abrasions on anterior kneecaps are healing. also sacral redness - stage 2. no further open wounds. Disposition/Potential discharge - Likely to transfer to [facility]. Total time is 35 minutes with greater than 50% spent in counseling and coordination of care. Retired. more than 40 years ago. Lives alone. DNR/DNI resuscitation status. POA: Ludivina (daughter), , and Rubi (daughter), . Living independently until hospitalization Exam Const: Vital Signs, click to edit/add: Vital Signs - 24 hr 02/24/23 15:00 02/24/23 19:12 02/24/23 23:30 Temperature 97.0 F L 97.7 F Pulse Rate [Left P ulse Oximeter] 76 74 Respiratory Rate 16 16 20 Blood Pressure [Le ft Arm] 130/76 Blood Pressure [Ri ght Arm] 137/66 Pulse Oximetry 93 82 L Oxygen Delivery Me thod Room Air Room Air 02/25/23 05:41 02/25/23 08:32 Temperature 98.1 F Pulse Rate [Left P ulse Oximeter] 85 Respiratory Rate 18 18 Blood Pressure [Le ft Arm] Blood Pressure [Ri ght Arm] 151/105 H Pulse Oximetry 92 Oxygen Delivery Me thod Room Air
--- NOTE | 2023-02-25 13:06 | PC.NURSE ---
Transferred to [facility] @ 1235 via EMS. Daughter Ludivina took all personal belongings with her. He was very pleasant this AM. A&Ox3, but forgetful. Up to the chair for breakfast, he also worked with OT and walked in the halls with a walker and Ax2. Incontinent of urine in a brief, but will void in a urinal. Discharge information was reviewed and completed with his daughter.
--- NOTE | 2023-02-25 16:43 | PC.SOCIAL ---
Discharge planning- Received a phone call from Mandi in admissions at [facility]. [facility] will accept pt for admission for today before 2:00 pm. Provided update to charge nurse. Charge nurse will set non-emergency ambulance. Paperwork was submitted for pt's transport to be covered under medicare, if possible. Phone call to pt's daughter (Ludivina) provided update. Ludivina informs that she would like pt to transport via non-emergency ambulance regardless if it is covered under insurance. Completed form by phone with Ludivina for EMS fee if transport is not covered. EMS is set for 12:30 pm. Provided update to [facility]. Completed preadmission screening. Confirmation #[id number]. Social work will follow up as needed.
--- NOTE | 2023-02-26 16:29 | P.DS_ITS ---
DS: Providers Provider Date Seen: 02/25/23 Date of admission: 02/20/23 23:38 Primary care physician: Not a Local Provider Admitting Clinician: Silvia Ruiz MD Consults: 02/21/23 09:09 Consult to Occupational Therapy [CONS] Routine Comment: Reason(s) for OT Consult:: Evaluate and Treat Any Restrictions?:: No Restrictions Consult to Physical Therapy [CONS] Routine Comment: Reason(s) for PT Consult:: Evaluate and Treat Any Restrictions?:: No Restrictions Consult to Cad Programmer [CONS] Routine Comment: Reason for Consult:: Discharge Planning Needs Attending Physician on discharge: Rosalba Dailey MD [facility] Date of Discharge: 02/26/23 DS: Diagnosis Discharge Diagnosis (1) Fall: Status: Acute Problem details: - High risk for fall due to weakness, recent stroke and cognitive impairment - This particular fall was 1 day after arrival at [facility], found in room on the floor - abrasions on his knees and sacrum. - weak s/p stroke in the previous weeks, fall risk, increasing cognitive decline. - accepted by [facility] (2) Progressive cognitive dysfunction: Status: Acute Problem details: preexisting before CVA would benefit from neuropsych testing/screening by Neuropsychology or occupational therapy once the acute phase of rehab is completed as an inpatient (3) Stroke: Status: Acute Problem details: - likely the primary trigger for the initial fall and subsequent confusion, left arm apraxia also likely CVA sequela - continue statin, aspirin, clopidogrel (Stop clopidogrel after 1 month) (4) Delirium: Status: Acute Problem details: - recurrent hospital-acquired delirium, often is confused/disoriented even when he is not appearing delirious (5) Hypertension: Status: Acute Problem details: - permissive HTN after recent CVA, now back on Amlodipine and Lisinopril (increase Lisinopril from 5 -->10mg on 02/23) (6) Dementia: Status: Acute Problem details: like (7) Cellulitis and abscess of leg: Status: Acute Problem details: - Abrasions over both knees, L>R - on Mupirocin and Keflex (02/21) due to presence of cellulitis and knee prosthesis (8) Progressive gait disorder: Status: Acute Problem details: - Combination of poor balance, recent CVA, weakness. SNF upon discharge DS: Summary Hospital Course Hospital Course: HOSPITALIST DISCHARGE SUMMARY ATTENDING PHYSICIAN: Rosalba Dailey MD FINAL DIAGNOSIS: Fall with minor injury Poor mobility, right leg partial paresis, status post stroke Increasing cognitive decline HOSPITAL FOLLOWUP ISSUES: Neuropsych to address worsening cognitive function post stroke REFERRALS WHILE ADMITTED: PT, OT, social work REFERRALS AFTER DISCHARGE: PCP to decide of neuropsych is clinically relevant BRIEF HOSPITAL COURSE: Ej was here on our service after suffering a stroke and being found down at home. He was subsequently transferred to [facility]. Within a day of arrival there he fell and was found down on the floor. He scraped up his knees in his low back. He was weak and in need of 1-2 assist. His right leg was weak. We feel this all stems from his initial stroke. In this post stroke. His cognitive function has drastically decreased. He Ebbs and flows out of delirium as well. He [facility] accepted at the [facility] [address] [place] [address] for continued rehab. SUBSTANTIVE NOTATIONS ON IMAGING, LAB, MICROBIOLOGY/PATHOLOGY STUDIES: DISCHARGE MEDICATIONS: See Reconciled list - SIGNIFICANT CHANGES: REVIEW OF SYSTEMS No new chest pain or dyspnea Pain controlled No voiding difficulties Tolerating diet challenge PHYSICAL EXAM: CONSTITUTIONAL: flat affect. NAD. VITAL SIGNS: see record. HEENT: Normocephalic, atraumatic. PERRL, EOMI, conjunctivae pink, no scleral icterus. Ears and nose externally normal. Pharynx normal. NECK: No JVD. No carotid bruit, no thyromegaly, no adenopathy. CHEST: Clear to auscultation bilaterally. HEART: S1 and S2 normal. Edemav 1-2+ ABDOMEN: Soft, nontender. Normal bowel sounds. MUSCULOSKELETAL: No gross joint deformity or swelling. NEURO: moving all extremitis; weak. I observed his gait. He drags his right leg. He has poor trunk control. he needs a lot of cuing. SKIN: No rashes, petechiae, concerning changes PSYCHIATRIC: Mood euthymic. DISPOSITION: [facility] Time spent on discharge 37 minutes. Time Spent with Patient Time attestation: Total time spent providing and/or coordinating discharge services: Discharge Plan Discharge Disposition: [facility] Date of Admission: 02/20/23 23:38 Attending Provider on Discharge: Rosalba Dailey Primary Care Provider: Provider,Not a Local Discharge Medications: New lisinopril 10 mg Tablet 10 mg PO DAILY Qty: 30 0RF Continued tamsulosin [Flomax] 0.4 mg capsule 0.8 mg PO HS pantoprazole 40 mg tablet,delayed release (DR/EC) 40 mg PO DAILY Rx Instructions: AM finasteride 5 mg tablet 5 mg PO DAILY Rx Instructions: AM duloxetine [Cymbalta] 60 mg capsule,delayed release(DR/EC) 60 mg PO DAILY Rx Instructions: AM amlodipine 5 mg tablet 5 mg PO DAILY Rx Instructions: AM acetaminophen 500 mg capsule 500 mg PO Q8H PRN Patient Comments: Rx Instructions: PRN BID potassium chloride 10 mEq capsule, extended release 10 meq PO DAILY Rx Instructions: AM sennosides-docusate sodium [Stool Softener-Laxative] 8.6-50 mg Tablet 2 tab PO DAILY PRN (Reason: Constipation) Rx Instructions: PRN clopidogrel 75 mg Tablet 75 mg PO DAILY Rx Instructions: AM aspirin [Children's Aspirin] 81 mg Tablet,Chewable 81 mg PO DAILY Rx Instructions: AM mupirocin 2 % Ointment 1 applic topical BID Rx Instructions: AM, PM carboxymethylcellulose sodium [Refresh Plus] 0.5 % Dropperette 1 drp ophthalmic (eye) QID PRN Rx Instructions: PRN rosuvastatin 20 mg tablet 20 mg PO HS Rx Instructions: PM lorazepam [Ativan] 0.5 mg tablet 0.5 mg PO QID PRNQty: 30 0RF Rx Instructions: PRN Discontinued melatonin 3 mg Tablet 3 mg PO HS PRN (Reason: Insomnia) Rx Instructions: PM PRN cephalexin 500 mg Capsule 500 mg PO QID Rx Instructions: 4x/daily Discharge Orders: Discharge Order (Routine); Ordered 02/25/23 Ordered By: Rosalba Dailey Activity Level: Up with assist and Use Walker Discharge Diet: Regular Follow Up Appointments: [facility] [Outside] (Patient being discharged to [facility] Provider,Not a Local [Primary Care Provider] - Admit to: SNF Discharge Potential: Fair Length of Stay: 30-90 days Can use facility standing orders?: Yes Code Status: DNR Rehab Potential: Fair Therapy: Physical Therapy and Occupational Therapy Therapy Orders: Evaluate and Treat Oxygen: No Urinary Catheter: No Orders are good >30 days: Yes
== END 2023-02-25 12:35 ==
LOC: ED 22:56 → MEDSURG 23:39
PROVIDERS: Family Medicine; Admitting Provider Family Medicine; Emergency Provider Family Medicine; Visit Provider Family Medicine
DX: F05 Delirium due to known physiological condition (principal); L03.119 Cellulitis of unspecified part of limb; L02.419 Cutaneous abscess of limb, unspecified; S30.810A Abrasion of lower back and pelvis, initial encounter; S80.212A Abrasion, left knee, initial encounter; S80.211A Abrasion, right knee, initial encounter; I69.390 Apraxia following cerebral infarction; I10 Essential (primary) hypertension; E78.5 Hyperlipidemia, unspecified; K59.00 Constipation, unspecified; K21.9 Gastro-esophageal reflux disease without esophagitis; F03.90 Unspecified dementia, unspecified severity, without behavioral disturbance, psychotic disturbance, mood disturbance, and anxiety; N40.1 Benign prostatic hyperplasia with lower urinary tract symptoms; R33.9 Retention of urine, unspecified; F32.A Depression, unspecified; M62.81 Muscle weakness (generalized); R26.81 Unsteadiness on feet; W19.XXXA Unspecified fall, initial encounter; R26.9 Unspecified abnormalities of gait and mobility; Z79.82 Long term (current) use of aspirin; Z91.81 History of falling; Z98.1 Arthrodesis status; Z86.79 Personal history of other diseases of the circulatory system; Z86.2 Personal history of diseases of the blood and blood-forming organs and certain disorders involving the immune mechanism; Z96.652 Presence of left artificial knee joint; Z87.898 Personal history of other specified conditions; Z66 Do not resuscitate
CPT/HCPCS: 36415; 51798; 70450; 71045; 72170; 73560; 80053; 81001; 82550; 82977; 83605; 83615; 83735; 84145; 84484; 85025; 86140; 87635; 93005; 94761; 96372; 97110; 97116; 97161; 97165; 97530; 97535; 99284; 99285; A9270; G0378; J1650

== ENCOUNTER 2023-02-25 12:23 | Outpatient (CLI) | payer OTHER, SELFPAY | END 2023-02-25 12:24 | disposition home or self-care (01) | PROVIDERS: Visit Provider Student in an Organized Health Care Education/Training Program | DX: F09 Unspecified mental disorder due to known physiological condition (principal); I63.9 Cerebral infarction, unspecified; R41.0 Disorientation, unspecified; F03.90 Unspecified dementia, unspecified severity, without behavioral disturbance, psychotic disturbance, mood disturbance, and anxiety | CPT/HCPCS: A0425; A0428 ==

== ENCOUNTER 2023-06-03 18:12 | Emergency (ER) | payer OTHER, SELFPAY ==
[2023-06-03 18:23] VITALS: BP 150/74; PULSE 76; RESP 16; TEMP 37.1; O2SAT 93; BMI 36.6
--- NOTE | 2023-06-03 18:42 | CRLHL7_ITS ---
For Patients: As a result of the Century Cures Act, medical imaging exams and procedure reports are released immediately into your electronic medical record. You may view this report before your referring provider. If you have questions, please contact your health care provider. INDICATION: Headaches. Trauma. On blood thinners. TECHNIQUE: Noncontrast axial CT of the head is submitted. Compared to prior study from February 20, 2023. FINDINGS: Moderate cerebral atrophy. The ventricles, sulci and gyri are of normal size, shape and contour for age and degree of atrophy. Midline structures are centrally located. No convincing evidence of suspicious intra- or extra-axial fluid collections. Mild patchy regions of decreased attenuation within the periventricular and subcortical white matter of both cerebral hemispheres. IMPRESSION: 1. Stable, no radiographic evidence of acute intracranial abnormalities. 2. Moderate cerebral atrophy. 3. Mild supratentorial white matter changes that are non-specific, but statistically most likely related to chronic small vessel ischemic disease. Dictated by Juan Jose Dewey MD @ 06/03/2023 7:02:58 PM Please note that all CT scans at this facility use dose modulation, iterative reconstruction, and/or weight-based dosing when appropriate to reduce radiation dose to as low as reasonably achievable. Dictated by: Juan Jose Dewey MD @ 06/03/2023 19:03:08 (Electronically Signed)
--- NOTE | 2023-06-03 19:03 | ED.FALL ---
HPI - Fall General Chief Complaint: Fall/Minor Trauma Stated Complaint: fell hit his head, on blood thinners Time Seen by Provider: 06/03/23 18:54 History of Present Illness HPI Narrative: This patient is an 82-year-old male who states that he fell sometime earlier today and bumped the left side of the back of his head. He does not report any loss of consciousness and denies having any headache. He does not report any other injury. He is on a anticoagulant medicine because of an irregular heartbeat. He is not showing any sign of neurologic deficit. Related Data Home Medications Medication Instructions Recorded Confirmed amlodipine 5 mg tablet 5 mg PO DAILY 02/15/23 06/03/23 duloxetine 60 mg capsule,delayed 60 mg PO DAILY 02/15/23 06/03/23 release (Cymbalta) finasteride 5 mg tablet 5 mg PO DAILY 02/15/23 06/03/23 tamsulosin 0.4 mg capsule (Flomax) 0.8 mg PO HS 02/15/23 06/03/23 acetaminophen 500 mg capsule 500 mg PO Q8H PRN 02/20/23 06/03/23 aspirin 81 mg chewable tablet 81 mg PO DAILY 02/20/23 06/03/23 (Children's Aspirin) carboxymethylcellulose sodium 0.5 1 drp ophthalmic (eye) QID PRN 02/20/23 06/03/23 % eye drops in a dropperette (Refresh Plus) rosuvastatin 20 mg tablet 20 mg PO HS 02/20/23 06/03/23 sennosides 8.6 mg-docusate sodium 2 tab PO DAILY PRN Constipation 02/20/23 06/03/23 50 mg tablet (Stool Softener-Laxative) apixaban 5 mg tablet (Eliquis) 5 mg PO BID 06/03/23 06/03/23 metoprolol tartrate 25 mg tablet 25 mg PO DAILY 06/03/23 06/03/23 Previous Rx's Medication Instructions Recorded lisinopril 10 mg tablet 10 mg PO DAILY #30 tabs 02/25/23 Allergies Allergy/AdvReac Type Severity Reaction Status Date / Time No Known Drug Allergies Allergy Verified 06/03/23 18:35 Review of Systems Status of ROS: Reports: 10 or more systems reviewed and unremarkable except as noted in History and below Narrative: Constitutional: No fevers, no weight gain or loss. Eyes: No discharge. No vision changes. HENT: No congestion, no sore throat, no ear pain. Cardiovascular: No chest pain, no palpitations. Respiratory: No shortness of breath, no wheezes, no cough. Gastrointestinal: No abdominal pain, no vomiting, no diarrhea. Genitourinary: No dysuria, no hematuria. Musculoskeletal: Normal range of motion. Skin: No rashes, no pruritis. Neurological: No dizziness, weakness, sensory change, speech change. Endo/Heme/Allergies: No bruising or bleeding. No polydipsia. Pysch: no suicidality, no anxiety, no insomnia. All other systems reviewed and are negative. [facility] Medical History (Updated 06/03/23 @ 19:38 by Maxime Salgado MD) POLST (Physician Orders for Life-Sustaining Treatment) ?Z78.9 - Other specified health status (ICD-10) Fall ?W19.XXXA - Unspecified fall, initial encounter (ICD-10) Hypertension ?I10 - Essential (primary) hypertension (ICD-10) Dementia ?F03.90 - Unspecified dementia, unspecified severity, without behavioral disturbance, psychotic disturbance, mood disturbance, and anxiety (ICD-10) Delirium ?R41.0 - Disorientation, unspecified (ICD-10) History of leukocytosis ?Z86.2 - Personal history of diseases of the blood and blood-forming organs and certain disorders involving the immune mechanism (ICD-10) Spondylolisthesis at L4-L5 level ?M43.16 - Spondylolisthesis, lumbar region (ICD-10) Acute delirium ?R41.0 - Disorientation, unspecified (ICD-10) History of falling ?Z91.81 - History of falling (ICD-10) Gait instability ?R26.81 - Unsteadiness on feet (ICD-10) Muscle weakness ?M62.81 - Muscle weakness (generalized) (ICD-10) Obstructive sleep apnea ?G47.33 - Obstructive sleep apnea (adult) (pediatric) (ICD-10) Tobacco use disorder ?F17.200 - Nicotine dependence, unspecified, uncomplicated (ICD-10) Thyroid nodule ?E04.1 - Nontoxic single thyroid nodule (ICD-10) Shoulder pain ?M25.519 - Pain in unspecified shoulder (ICD-10) Osteoarthritis of knees, bilateral ?M17.0 - Bilateral primary osteoarthritis of knee (ICD-10) Morbid obesity ?E66.01 - Morbid (severe) obesity due to excess calories (ICD-10) Iron deficiency anemia ?D50.9 - Iron deficiency anemia, unspecified (ICD-10) Impaired fasting blood sugar ?R73.01 - Impaired fasting glucose (ICD-10) Benign prostatic hyperplasia with lower urinary tract symptoms ?N40.1 - Benign prostatic hyperplasia with lower urinary tract symptoms (ICD-10) Essential hypertension ?I10 - Essential (primary) hypertension (ICD-10) Gastroesophageal reflux disease ?K21.9 - Gastro-esophageal reflux disease without esophagitis (ICD-10) Major depressive disorder ?F32.9 - Major depressive disorder, single episode, unspecified (ICD-10) Surgical History Status post left knee replacement ?Z96.652 - Presence of left artificial knee joint (ICD-10) S/P cervical spinal fusion ?Z98.1 - Arthrodesis status (ICD-10) Family History Brother Diabetes Heart disease Mother Diabetes Polio Father Polio Social History (Updated 02/21/23 @ 10:21 by Prince Oliveira MD) Narrative: Retired. more than 40 years ago. Lives alone. DNR/DNI resuscitation status. POA: Ludivina (daughter), , and Rubi (daughter), . Living independently until hospitalization earlier this week when he was transferred to [facility]. What is your current living situation?: I presently have a place to live Problems where you live: no known problems Problems where you live details: n/a In the past 12 months, utilities in danger of being shut off: no In past 12 months, lack of transportation kept you from medical appts, meetings, work, or getting things needed for daily living: no In the past 12 mos, have been you worried that your food would run out before you had money to buy more?: never true In the past 12 mos, the food you bought just didn't last and you didn't have money to buy more?: never true Highest level of school completed/degree received: high school graduate Smoking Status: Former smoker Do you use any of these nicotine containing products: None Second hand tobacco smoke exposure: No How often do you have a drink containing alcohol: monthly or less How many standard drinks containing alcohol do you have on a typical day: 1 or 2 How often do you have six or more drinks on one occasion: Never AUDIT-C Alcohol total score: 1 Non-prescribed substance use: denies use Caffeine: Yes How often does anyone, including family, friends and others, physically hurt you: never How often does anyone, including family, friends and others, insult or talk down to you: never How often does anyone, including family, friends and others, threaten you with harm: never How often does anyone, including family, friends and others, scream or curse at you: never service: Yes Exam Narrative: Exam Narrative: Constitutional: Well-developed, well-nourished, no acute distress. HEENT: The left occipital region has a very small area of swelling with no overlying abrasion or laceration. Neck: Normal range of motion. Nontender. Supple. Heart: Regular. No murmurs. Normal rate. Intact distal pulses. Lungs: Clear to auscultation. No chest discomfort. No wheezes, rhonchi, or rales. Abdomen: Normal bowel sounds. Nontender. No rebound tenderness. Genitalia: Deferred. Back: No midline tenderness. Normal range of motion. Extremities: Normal range of motion. No injury. Skin: Intact. No rash. Warm. No erythema or pallor. Neurologic: No altered sensation. No weakness. Alert and oriented. Psychiatric: No suicidality. No anxiety or depression. No insomnia. Nursing notes and vitals signs are reviewed. Const: Vital Signs, click to edit/add: Vital Signs - 24 hr 06/03/23 18:23 Temperature 98.7 F Pulse Rate [Pulse Oximeter] 76 Respiratory Rate 16 Blood Pressure [Ri ght Upper Arm] 150/74 H Pulse Oximetry 93 Oxygen Delivery Me thod Room Air Course Vital Signs Vital signs: Initial Vital Signs Temperature 98.7 F 06/03/23 18:23 Temperature Source Temporal Artery Scan 06/03/23 18:23 Pulse Rate 76 06/03/23 18:23 Respiratory Rate 16 06/03/23 18:23 Blood Pressure 150/74 H 06/03/23 18:23 Blood Pressure Mean 99 06/03/23 18:23 Blood Pressure Position Sitting 06/03/23 18:23 Pulse Oximetry 93 06/03/23 18:23 Oxygen Delivery Method Room Air 06/03/23 18:23 Vital Signs Temperature 98.7 F 06/03/23 18:23 Pulse Rate 76 06/03/23 18:23 Respiratory Rate 16 06/03/23 18:23 Blood Pressure 150/74 H 06/03/23 18:23 Pulse Oximetry 93 06/03/23 18:23 Oxygen Delivery Method Room Air 06/03/23 18:23 Temperature 98.7 F 06/03/23 18:23 Pulse Rate 76 06/03/23 18:23 Respiratory Rate 16 06/03/23 18:23 Blood Pressure 150/74 H 06/03/23 18:23 Pulse Oximetry 93 06/03/23 18:23 Oxygen Delivery Method Room Air 06/03/23 18:23 MDM - Fall MDM Narrative Medical decision making narrative: This patient comes in for evaluation of head injury that occurred earlier today. CT imaging of his head shows no acute findings. The patient is on anticoagulants for irregular heart rhythms. He is not describing any symptoms of discomfort but did state that he did not feel so well early this morning. He did have a COVID test which was negative. His exam and vital signs here are all reassuring. I did discuss lab and imaging options to further evaluate him today and these were declined in a process of shared decision making involving the patient and his family member. Imaging Data CT scan - head: Radiologist's impression: 1. Stable, no radiographic evidence of acute intracranial abnormalities. 2. Moderate cerebral atrophy. 3. Mild supratentorial white matter changes that are non-specific, but statistically most likely related to chronic small vessel ischemic disease. Discharge Plan Discharge Clinical Impression: Closed head injury Patient Disposition: Home w/ Parent or Adult Condition: Stable Additional Instructions: Continue current plans. Follow up with MD as needed or return if worsening. Prescriptions: No Action tamsulosin [Flomax] 0.4 mg capsule 0.8 mg PO HS finasteride 5 mg tablet 5 mg PO DAILY Rx Instructions: AM duloxetine [Cymbalta] 60 mg capsule,delayed release(DR/EC) 60 mg PO DAILY Rx Instructions: AM amlodipine 5 mg tablet 5 mg PO DAILY Rx Instructions: AM acetaminophen 500 mg capsule 500 mg PO Q8H PRN Patient Comments: Rx Instructions: PRN BID sennosides-docusate sodium [Stool Softener-Laxative] 8.6-50 mg Tablet 2 tab PO DAILY PRN (Reason: Constipation) Rx Instructions: PRN aspirin [Children's Aspirin] 81 mg Tablet,Chewable 81 mg PO DAILY Rx Instructions: AM carboxymethylcellulose sodium [Refresh Plus] 0.5 % Dropperette 1 drp ophthalmic (eye) QID PRN Rx Instructions: PRN rosuvastatin 20 mg tablet 20 mg PO HS Rx Instructions: PM lisinopril 10 mg Tablet 10 mg PO DAILY Qty: 30 0RF Eliquis 5 mg tablet 5 mg PO BID metoprolol tartrate 25 mg tablet 25 mg PO DAILY Follow Up/Referrals: Provider,Not a Local [Primary Care Provider] - Stand Alone Forms: [facility] Info Instructions
[2023-06-03 19:53] VITALS: BP 144/81; PULSE 72; RESP 18
[2023-06-03 19:56] VITALS: BP 144/81; PULSE 72; RESP 18; O2SAT 92
== END 2023-06-03 19:55 | disposition home or self-care (01) ==
LOC: ED 19:42
PROVIDERS: Emergency Provider Emergency Medicine Emergency Medical Services
DX: S09.90XA Unspecified injury of head, initial encounter (principal); W01.0XXA Fall on same level from slipping, tripping and stumbling without subsequent striking against object, initial encounter
CPT/HCPCS: 70450; 99283; 99284

== ENCOUNTER 2023-06-04 12:29 | Emergency (ER) | payer OTHER, SELFPAY ==
--- NOTE | 2023-06-04 12:52 | CRLHL7_ITS ---
For Patients: As a result of the Century Cures Act, medical imaging exams and procedure reports are released immediately into your electronic medical record. You may view this report before your referring provider. If you have questions, please contact your health care provider. INDICATION: Injury COMPARISON: June 03, 2023 TECHNIQUE: CT examination of the head was performed as axial sections without intravenous contrast. Images were obtained from the vertex of the skull through the skull base. Please note that all CT scans at this facility use dose modulation, iterative reconstruction, and/or weight-based dosing when appropriate to reduce radiation dose to as low as reasonably achievable. FINDINGS: The brain shows no sign of mass lesion, mass effect, hemorrhage, or edema. There are involutional changes. There is moderate cortical atrophy and there is moderate white matter disease. There is no hydrocephalus. The visualized portions of the orbits are normal in appearance. The osseous structures are normal in appearance with no sign of abnormality in the skull base or calvarium. IMPRESSION: Involution changes. No acute intracranial posttraumatic finding. No substantial change since the prior exam. Please note that all CT scans at this facility use dose modulation, iterative reconstruction, and/or weight-based dosing when appropriate to reduce radiation dose to as low as reasonably achievable. Dictated by Liang Byrnes MD @ 06/04/2023 1:18:31 PM (Electronically Signed)
[2023-06-04 12:53] VITALS: BP 122/63; PULSE 54; TEMP 36.6; O2SAT 93; BMI 36.6
[2023-06-04 14:17] LABS: Basophils Absolute Auto 0.04 K/uL (0.00-0.30); Basophils Percent Auto 0.7 % (0.0-3.0); Eosinophils Absolute Auto 0.05 K/uL (0.00-0.50); Eosinophils Percent Auto 0.9 % (0.0-7.0); Hematocrit 42.1 % (37.0-53.0); Hemoglobin* 14.1 gm/dL (13.5-17.5); Immature Granulocytes Abs Auto 0.01 K/uL (0.00-0.30); Immature Granulocytes Pct Auto 0.2 %; Lymphocytes Percent Auto 11.5 % (20-44); Mean Corpuscular HGB Conc 34 gm/dL (32-36); Mean Corpuscular Hemoglobin 29 pg (26-34); Mean Corpuscular Volume 88 fL (80-100); Monocytes Percent Auto 15.7 % (0.0-11.0); Neutrophils Absolute Auto 4.02 K/uL (1.7-7.0); Platelet Count* 121 K/uL (140-440); White Blood Count* 5.66 K/uL (4.50-11.00)
[2023-06-04 14:21] LABS: Slide Review Reflex No
--- NOTE | 2023-06-04 14:24 | ED.HEATRA ---
HPI - Head Injury General Date Seen: 06/04/23 Chief complaint: Head Injury/Pain Stated complaint: Fell this am, hit head--on thinners Time Seen by Provider: 06/04/23 13:35 History of Present Illness HPI Narrative: This is a very pleasant 82-year-old gentleman who is accompanied to the ER today by his daughter. He comes in from his assisted living for evaluation of injuries after mechanical trip and fall. He has a past medical history including recent diagnosis of atrial fibrillation (recently started on apixaban and metoprolol), previous stroke, dementia, gait disorder with previous falls( normally walks with a walker). His daughter notes that he was seen here in the ER last night after he tripped and fell at his assisted living. He hit the back of his head last night. He had a negative head CT. He was back at his assisted living this morning. He was getting up to walk with his walker and he got his feet tangled up with a walker. He fell forward. He suffered superficial scrapes to the front of both of his knees and to his forearms. These were already dressed and cared for by his nurses at the assisted living. He also struck his forehead against the sharp edge of a table. He suffered a bruise and abrasion there but no laceration. No loss of consciousness. He had a mild headache. He was sent here to the ER to get a CT scan because of the head injury, since he is on Eliquis. Now that he is here he really has no complaints. Only mild headache. No blurry vision. No nausea. No chest pain or trouble breathing. No abdominal pain. No back pain. His knees are mildly sore but not really bothering him. He does have some pain in the right lateral lower ribcage and has an abrasion there. Although he denied any chest pain when I asked him, during exam he is tender in the right lower chest and right upper quadrant of his abdomen Also, notably, he has had mild fatigue, nonproductive cough for the past few days. Multiple other members of his assisted living have had coronavirus recently. He had a negative home-based COVID antigen test negative. He is not febrile. Normal appetite. He thinks he is drinking plenty of fluids but his daughter thinks he probably is not. No vomiting or diarrhea. Related Data Home Medications Medication Instructions Recorded Confirmed amlodipine 5 mg tablet 5 mg PO DAILY 02/15/23 06/03/23 duloxetine 60 mg capsule,delayed 60 mg PO DAILY 02/15/23 06/03/23 release (Cymbalta) finasteride 5 mg tablet 5 mg PO DAILY 02/15/23 06/03/23 tamsulosin 0.4 mg capsule (Flomax) 0.8 mg PO HS 02/15/23 06/03/23 acetaminophen 500 mg capsule 500 mg PO Q8H PRN 02/20/23 06/03/23 aspirin 81 mg chewable tablet 81 mg PO DAILY 02/20/23 06/03/23 (Children's Aspirin) carboxymethylcellulose sodium 0.5 1 drp ophthalmic (eye) QID PRN 02/20/23 06/03/23 % eye drops in a dropperette (Refresh Plus) rosuvastatin 20 mg tablet 20 mg PO HS 02/20/23 06/03/23 sennosides 8.6 mg-docusate sodium 2 tab PO DAILY PRN Constipation 02/20/23 06/03/23 50 mg tablet (Stool Softener-Laxative) apixaban 5 mg tablet (Eliquis) 5 mg PO BID 06/03/23 06/03/23 metoprolol tartrate 25 mg tablet 25 mg PO DAILY 06/03/23 06/03/23 Previous Rx's Medication Instructions Recorded lisinopril 10 mg tablet 10 mg PO DAILY #30 tabs 02/25/23 nirmatrelvir 300 mg (150 mg See Rx Instructions PO .COMPLEX 06/04/23 x2)-ritonavir 100 mg tablet,dose #30 ea pack (Paxlovid) Allergies Allergy/AdvReac Type Severity Reaction Status Date / Time No Known Drug Allergies Allergy Verified 06/03/23 18:35 [facility] Medical History (Updated 06/04/23 @ 17:38 by Aashish Yates MD) POLST (Physician Orders for Life-Sustaining Treatment) ?Z78.9 - Other specified health status (ICD-10) Fall ?W19.XXXA - Unspecified fall, initial encounter (ICD-10) Hypertension ?I10 - Essential (primary) hypertension (ICD-10) Dementia ?F03.90 - Unspecified dementia, unspecified severity, without behavioral disturbance, psychotic disturbance, mood disturbance, and anxiety (ICD-10) Delirium ?R41.0 - Disorientation, unspecified (ICD-10) History of leukocytosis ?Z86.2 - Personal history of diseases of the blood and blood-forming organs and certain disorders involving the immune mechanism (ICD-10) Spondylolisthesis at L4-L5 level ?M43.16 - Spondylolisthesis, lumbar region (ICD-10) Acute delirium ?R41.0 - Disorientation, unspecified (ICD-10) History of falling ?Z91.81 - History of falling (ICD-10) Gait instability ?R26.81 - Unsteadiness on feet (ICD-10) Muscle weakness ?M62.81 - Muscle weakness (generalized) (ICD-10) Obstructive sleep apnea ?G47.33 - Obstructive sleep apnea (adult) (pediatric) (ICD-10) Tobacco use disorder ?F17.200 - Nicotine dependence, unspecified, uncomplicated (ICD-10) Thyroid nodule ?E04.1 - Nontoxic single thyroid nodule (ICD-10) Shoulder pain ?M25.519 - Pain in unspecified shoulder (ICD-10) Osteoarthritis of knees, bilateral ?M17.0 - Bilateral primary osteoarthritis of knee (ICD-10) Morbid obesity ?E66.01 - Morbid (severe) obesity due to excess calories (ICD-10) Iron deficiency anemia ?D50.9 - Iron deficiency anemia, unspecified (ICD-10) Impaired fasting blood sugar ?R73.01 - Impaired fasting glucose (ICD-10) Benign prostatic hyperplasia with lower urinary tract symptoms ?N40.1 - Benign prostatic hyperplasia with lower urinary tract symptoms (ICD-10) Essential hypertension ?I10 - Essential (primary) hypertension (ICD-10) Gastroesophageal reflux disease ?K21.9 - Gastro-esophageal reflux disease without esophagitis (ICD-10) Major depressive disorder ?F32.9 - Major depressive disorder, single episode, unspecified (ICD-10) Surgical History Status post left knee replacement ?Z96.652 - Presence of left artificial knee joint (ICD-10) S/P cervical spinal fusion ?Z98.1 - Arthrodesis status (ICD-10) Family History Brother Diabetes Heart disease Mother Diabetes Polio Father Polio Social History (Updated 02/21/23 @ 10:21 by Prince Oliveira MD) Narrative: Retired. more than 40 years ago. Lives alone. DNR/DNI resuscitation status. POA: Ludivina (daughter), , and Rubi (daughter), . Living independently until hospitalization earlier this week when he was transferred to [facility]. What is your current living situation?: I presently have a place to live Problems where you live: no known problems Problems where you live details: n/a In the past 12 months, utilities in danger of being shut off: no In past 12 months, lack of transportation kept you from medical appts, meetings, work, or getting things needed for daily living: no In the past 12 mos, have been you worried that your food would run out before you had money to buy more?: never true In the past 12 mos, the food you bought just didn't last and you didn't have money to buy more?: never true Highest level of school completed/degree received: high school graduate Smoking Status: Former smoker Do you use any of these nicotine containing products: None Second hand tobacco smoke exposure: No How often do you have a drink containing alcohol: monthly or less How many standard drinks containing alcohol do you have on a typical day: 1 or 2 How often do you have six or more drinks on one occasion: Never AUDIT-C Alcohol total score: 1 Non-prescribed substance use: denies use Caffeine: Yes How often does anyone, including family, friends and others, physically hurt you: never How often does anyone, including family, friends and others, insult or talk down to you: never How often does anyone, including family, friends and others, threaten you with harm: never How often does anyone, including family, friends and others, scream or curse at you: never service: Yes Exam Narrative: Exam Narrative: Constitutional: Appears well-developed and well-nourished. Alert. Conversant. Non toxic. HENT: Head: Central forehead contusion/abrasion. No laceration. Also has small area of ecchymosis on the right occipital skull. No underlying skull fracture. No raccoon eyes or Mallory sign. No hemotympanum. TMs normal.. Nose: Nose normal. Mouth/Throat: Oral mucosa is clear and moist. no trismus. Pharynx normal. Tonsils symmetric. No tonsillar enlargement, erythema, or exudate. Eyes: Conjunctivae normal. EOM normal. Pupils equal, round, and reactive to light. No scleral icterus. Neck: Normal range of motion. Neck supple. No tracheal deviation present. No JVD. No posterior midline tenderness or step-off. Cardiovascular: Normal rate, regular rhythm. No gallop. No friction rub. No murmur heard. Symmetric radial artery pulses Pulmonary/Chest: Effort normal. No stridor. No respiratory distress. No wheezes. No rales. No rhonchi . No tenderness. Abdominal: Soft. Bowel sounds normal. No distension. No mass. No tenderness. No rebound. No guarding. Musculoskeletal: RUE: Normal range of motion. No tenderness. No deformity LUE: Normal range of motion. No tenderness. No deformity RLE: Normal range of motion. No edema. No tenderness. No deformity LLE: Normal range of motion. No edema. No tenderness. No deformity Lymph: No cervical adenopathy. Neurological: Alert and oriented to person, place, and time. Normal strength. CN II-VII intact. No sensory deficit. GCS eye subscore is 4. GCS verbal subscore is 5. GCS motor subscore is 6. Normal coordination Skin: Skin is warm and dry. No rash noted. No pallor. Normal capillary refill. Psychiatric: Normal mood. Normal affect. Const: Vital Signs, click to edit/add: Vital Signs - 24 hr 06/04/23 12:53 06/04/23 16:00 Temperature 98 F 98.3 F Pulse Rate [Pulse Oximeter] 54 L 56 L Respiratory Rate 14 Blood Pressure [Ri ght Upper Arm] 122/63 161/75 H Pulse Oximetry 93 95 Oxygen Delivery Me thod Room Air Room Air Course Vital Signs Vital signs: Initial Vital Signs Temperature 98 F 06/04/23 12:53 Temperature Source Temporal Artery Scan 06/04/23 12:53 Pulse Rate 54 L 06/04/23 12:53 Blood Pressure 122/63 06/04/23 12:53 Blood Pressure Mean 82 06/04/23 12:53 Blood Pressure Position Supine 06/04/23 12:53 Pulse Oximetry 93 06/04/23 12:53 Oxygen Delivery Method Room Air 06/04/23 12:53 Vital Signs Temperature 98 F 06/04/23 12:53 Pulse Rate 54 L 06/04/23 12:53 Blood Pressure 122/63 06/04/23 12:53 Pulse Oximetry 93 06/04/23 12:53 Oxygen Delivery Method Room Air 06/04/23 12:53 Temperature 98.3 F 06/04/23 16:00 Pulse Rate 56 L 06/04/23 16:00 Respiratory Rate 14 06/04/23 16:00 Blood Pressure 161/75 H 06/04/23 16:00 Pulse Oximetry 95 06/04/23 16:00 Oxygen Delivery Method Room Air 06/04/23 16:00 Medications Administered Medications: Discontinued Medications Generic Name Dose Route Start Last Admin Trade Name Kelly PRN Reason Stop Dose Admin Acetaminophen 1,000 mg 06/04/23 16:53 06/04/23 16:55 Acetaminophen 500 Mg Tablet PO 06/04/23 16:54 1,000 mg ONCE ONE Administration MDM - Head Injury MDM Narrative Medical decision making narrative: This patient presents with blunt head trauma after mechanical fall that occurred at his assisted living today. Differential includes intracranial injuries (e.g. skull fracture, epidural hematoma, subdural hematoma, intracerebral hemorrhage, and traumatic subarachnoid hemorrhage), verses concussion or other traumatic brain injury. CT imaging was obtained and fortunately was normal. At this time it appears that the patient's symptoms are due to a concussion. His daughter also notes that this is his 2nd fall in 24 hours which is unusual for him. He has had a recent cough and COVID is circulating at his care facility. We did do workup to check for other metabolic conditions that might be contributing to weakness or falls. Urinalysis, CBC, BMP are all reassuring. EKG nonischemic. Chest x-ray negative for rib fracture or pneumonia. Head CT negative. Troponin negative. He is positive for coronavirus. We suspect this probably been causing his URI symptoms and probably contributed to his falls. Although he has COVID overall he is mentating normally. Breathing easily. Oxygen normal. At this point he does not require hospitalization. He would be at high risk for serious illness. He has had his initial COVID series and boosters but has not had a booster yet this fall. He would be a candidate for Paxlovid. I reviewed the patient's med list and the [facility] Paxlovid website for medication interactions. Will start the patient on Paxlovid. No need to adjust dose for renal function. There are interactions with apixaban, tamsulosin, rosuvastatin. He will hold these 3 medications well he is on Paxlovid and resume them after he completes the course. Discussed the risk of respiratory deterioration with coronavirus and precautions for return to the ER with the patient and his daughter. They verbalized their understanding and agree. Lab Data Labs: Lab Results 06/04/23 06/04/23 06/04/23 Range/Units 14:05 14:10 18:00 WBC 5.66 (4.50-11.00) K/uL RBC 4.80 (4.30-5.90) m/uL Hgb 14.1 (13.5-17.5) gm/dL Hct 42.1 (37.0-53.0) % MCV 88 (80-100) fL MCH 29 (26-34) pg MCHC 34 (32-36) gm/dL RDW Coeff of Brenda 13.0 (11.5-15.5) % Plt Count 121 L (140-440) K/uL Neut % (Auto) 71.0 (42.0-72.0) % Lymph % (Auto) 11.5 L (20-44) % [place] % (Auto) 15.7 H (0.0-11.0) % Eos % (Auto) 0.9 (0.0-7.0) % Baso % (Auto) 0.7 (0.0-3.0) % Neut # (Auto) 4.02 (1.7-7.0) K/uL Lymph # (Auto) 0.70 L (0.90-2.90) K/uL [place] # (Auto) 0.90 (0.00-0.90) K/UL Eos # (Auto) 0.05 (0.00-0.50) K/uL Baso # (Auto) 0.04 (0.00-0.30) K/uL Abs Immat Gran (auto) 0.01 (0.00-0.30) K/uL Imm/Tot Granulo (auto) 0.2 % Sodium 132 L (135-149) mmol/L Potassium 4.0 (3.6-5.1) mmol/L Chloride 102 (96-114) mmol/L Carbon Dioxide 28 (20-32) mmol/L Anion Gap 2 L (7-15) mEq/L BUN 14 (7-30) mg/dL Creatinine 0.8 (0.5-1.5) mg/dL Estimated Creat Clear 62.51 Estimated GFR 88 ml/min Glucose 115 (60-115) mg/dL Calcium 9.4 (8.4-10.6) mg/dL Troponin I < 0.01 L (0.01-0.04) ng/mL Urine Color Yellow (Yellow) Urine Appearance Clear (Clear) Urine pH 6.0 (5.0-8.5) Ur Specific [place] 1.020 (1.000-1.030) Urine Protein Negative (Negative) Urine Glucose (UA) Negative (Negative) Urine Ketones Trace A (Negative) Urine Blood Negative (Negative) Urine Nitrite Negative (Negative) Urine Bilirubin Negative (Negative) Urine Urobilinogen 2.0 A (0.2-1.0) Ur Leukocyte Esterase Negative (Negative) Urine RBC 0-2 (0-2) Urine WBC 0-2 (0-5) Ur Squamous Epith Cells None (None-Few) Urine Bacteria None (None) SARS-CoV-2 (PCR) POSITIVE SARS-CoV-2 A (Negative) Influenza Type A (PCR) Negative PCR FLU A (Negative) Influenza Type B (PCR) Negative PCR FLU B (Negative) RSV (PCR) Negative PCR RSV (Negative) ECG Data Attestation: I personally reviewed and interpreted this ECG as follows: Interpretation: Normal sinus rhythm with sinus arrhythmia. Rate 70 OH 170 QRS axis left axis deviation. Left ventricular hypertrophy based on tall R-wave in aVL. ST segment/T wave: No ST segment elevation or depression. QTc: 419 Discharge Plan Discharge Clinical Impression: COVID-19, Head injury, Fall Patient Disposition: Home, Self-Care Condition: Stable Instructions: Head Injury (DC), Fall Prevention (ED), COVID-19 (Coronavirus Disease 2019) (ED) Additional Instructions: Please start on Paxlovid tonight to help reduce the severity of your coronavirus illness. While you're on Paxlovid-for the next 5 days-please hold several of your medications: Do not take apixaban while you are on Paxlovid. Do not take tamsulosin while you are on Paxlovid. Do not take rosuvastatin while you are on Paxlovid. You may continue your other medications while you're on Paxlovid. If you have any trouble; especially worsening weakness, falls, trouble breathing, chest pain, high fever, confusion, low oxygen levels, or any problems return to the emergency department right away. Prescriptions: New Paxlovid 300 mg (150 mg x 2)-100 mg tablets,dose pack See Rx Instructions .ROUTE .COMPLEX Qty: 30 0RF Rx Instructions: take TWO 150 mg tablets of nirmatrelvir with ONE 100 mg tablet of ritonavir twice daily for 5 days No Action tamsulosin [Flomax] 0.4 mg capsule 0.8 mg PO HS finasteride 5 mg tablet 5 mg PO DAILY Rx Instructions: AM duloxetine [Cymbalta] 60 mg capsule,delayed release(DR/EC) 60 mg PO DAILY Rx Instructions: AM amlodipine 5 mg tablet 5 mg PO DAILY Rx Instructions: AM acetaminophen 500 mg capsule 500 mg PO Q8H PRN Patient Comments: Rx Instructions: PRN BID sennosides-docusate sodium [Stool Softener-Laxative] 8.6-50 mg Tablet 2 tab PO DAILY PRN (Reason: Constipation) Rx Instructions: PRN aspirin [Children's Aspirin] 81 mg Tablet,Chewable 81 mg PO DAILY Rx Instructions: AM carboxymethylcellulose sodium [Refresh Plus] 0.5 % Dropperette 1 drp ophthalmic (eye) QID PRN Rx Instructions: PRN rosuvastatin 20 mg tablet 20 mg PO HS Rx Instructions: PM lisinopril 10 mg Tablet 10 mg PO DAILY Qty: 30 0RF Eliquis 5 mg tablet 5 mg PO BID metoprolol tartrate 25 mg tablet 25 mg PO DAILY Follow Up/Referrals: César Celestin MD [Primary Care Provider] - Stand Alone Forms: [facility] Info Instructions
[2023-06-04 14:35] LABS: Chloride* 102 mmol/L (96-114); Sodium* 132 mmol/L (135-149)
[2023-06-04 14:38] LABS: Anion Gap 2 mEq/L (7-15); Carbon Dioxide* 28 mmol/L (20-32); Creatinine* 0.8 mg/dL (0.5-1.5); Est. Creatinine Clearance* 62.51; Estimated Glomerular Filt Rate 88 ml/min
[2023-06-04 14:39] LABS: Blood Urea Nitrogen* 14 mg/dL (7-30); Calcium* 9.4 mg/dL (8.4-10.6); Glucose* 115 mg/dL (60-115)
[2023-06-04 14:51] LABS: Troponin I* < 0.01 ng/mL (0.01-0.04)
[2023-06-04 15:00] LABS: PCR FLU A Negative PCR FLU A (Negative); PCR FLU B Negative PCR FLU B (Negative); PCR RSV Negative PCR RSV (Negative)
[2023-06-04 15:16] LABS: SARS PCR* POSITIVE SARS-CoV-2 (Negative)
[2023-06-04 16:00] VITALS: BP 161/75; PULSE 56; RESP 14; TEMP 36.8; O2SAT 95
--- NOTE | 2023-06-04 16:00 | CRLHL7_ITS ---
For Patients: As a result of the Century Cures Act, medical imaging exams and procedure reports are released immediately into your electronic medical record. You may view this report before your referring provider. If you have questions, please contact your health care provider. INDICATION: Rib pain TECHNIQUE: Chest 2 views. COMPARISON: None. FINDINGS: Cardiovascular and mediastinum: Heart size and vasculature are normal in caliber and appearance. Lungs and pleural spaces: Lungs are clear. No sign of infiltrate or mass. No sign of pleural effusion. No pneumothorax. Bones and soft tissues: No significant findings. Partially visualized bilateral humeral head prostheses. IMPRESSION: 1. No acute cardiopulmonary process. 2. No visualized rib fracture. Dictated by Jerry Booker MD @ 06/04/2023 5:00:00 PM (Electronically Signed)
--- NOTE | 2023-06-04 16:30 | ED.NURSE ---
Pt up in walker. Attempt to obtain UA, but pt still unable to provide sample. Pt prefers to sit back down in w/c, pillows placed for comfort. Daughter at bedside.
[2023-06-04] MEDS: ACETAMINOPHEN 500 MG TABLET 1000 MG PO (16:55)
--- NOTE | 2023-06-04 17:33 | ED.NURSE ---
Call to [facility] nurse line ([phone]) to give handoff report. No answer, voicemail left.
[2023-06-04 18:40] LABS: Appearance Urine Clear (Clear); Bilirubin Urine Negative (Negative); Blood Urine Negative (Negative); Color Urine Yellow (Yellow); Glucose Urine Negative (Negative); Ketones Urine Trace (Negative); Leukocyte Esterase Urine Negative (Negative); Nitrite Urine Negative (Negative); Protein Urine Negative (Negative)
[2023-06-04 19:03] LABS: RBC Urine 0-2 (0-2); WBC Urine 0-2 (0-5)
--- NOTE | 2023-06-04 20:17 | ED.NURSE ---
Call to Guadalupe at [facility] to give discharge instructions and handoff report. Guadalupe aware of pt's COVID positive status and to hold three medications (apixaban, tamsulosin, and rosuvastatin) while pt takes Paxlovid, per d/c instructions. No further questions at this time.
== END 2023-06-04 18:24 | disposition home or self-care (01) ==
PROVIDERS: Emergency Provider Emergency Medicine
DX: U07.1 COVID-19 (principal); S09.90XA Unspecified injury of head, initial encounter; W18.30XA Fall on same level, unspecified, initial encounter
CPT/HCPCS: 36415; 70450; 71046; 80048; 81001; 84484; 85025; 87631; 93005; 99284; 99285; A9270

== ENCOUNTER 2024-02-17 12:44 | Outpatient (CLI) | payer MEDICARE, BC, SELFPAY ==
--- OUTSIDE RECORDS SUMMARY | 2024-02-17 12:48 | XMS_ITS | Encounter Summary ---
Author Name [facility] [place] [facility] [facility] [place] Address [address] [place] [address] Care Team Providers Care Cloth Layer Name Role Phone BRINA BIRMINGHAM Primary Care Provider Unavailabl e Insurance Providers: All historical and current Section Date Range: From patient's date of to the date document was created. This section includes the names of all active insurance providers for the patient. Insurance Provider Type of Coverage Plan Name Start of Policy Coverage End of Policy Coverage Group Number Member ID Insurance Provider's Telephone Number Policy Forde's Name Patient's Relationship to Policy Forde [place] PREFERRED PROVIDER ORGANIZAT ION (PPO) PLATI LULA BLUE COMP Jul 22, 2016 [id number] [phone] JACK ZAMORA PATIENT ANTHEM [place] PREFERRED PROVIDER ORGANIZAT ION (PPO) PLATI NUM BLUE COMP Jul 22, 2016 [id number] [phone] JACK ZAMORA PATIENT ANTHE[place] PREFERRED PROVIDER ORGANIZAT ION (PPO) PLATI NUM BLUE COMP Jul 22, 2016 [id number] [phone] JACK ZAMORA PATIENT [place] PREFERRED PROVIDER ORGANIZAT ION (PPO) PLATI NUM BLUE COMP Jul 22, 2016 [id number] [phone] JACK ZAMORA PATIENT [place] [facility] (WNR) MEDICARE ADVANTAGE [facility] (WNR) Jul 22, 2016 [id number] [phone] JACK ZAMORA PATIENT [place] [facility] (WNR) MEDICARE ADVANTAGE [facility] (WNR) Jul 22, 2016 [id number] [phone] JACK ZAMORA MEDICARE (WNR) MEDICARE () PART A November 19, 2004 PART A [id number] JACK ZAMORA PATIENT MEDICARE (WNR) MEDICARE ([place]) PART B November 19, 2004 PART B [id number] JACK ZAMORA PATIENT PRIME THERAPEUTI CS RX PRESCRIPT ION BCBS [facility] Jul 22, 2016 [id number] JACK ZAMORA PATIENT Selected Encounter This section includes the information on record at [place] for the Encounter. Date/Time Encounter Type Encounter Description Reason Provider Source May 14, 2023 02:30 PM OFF/OP CONSLTJ NEW/EST HI 55 NEUROLOGY ICD-10-CM I67.9 Cerebrovascular disease, unspecified EL MACKENZIE [facility] Encounter Template Text not used by [place] Assessments - Encounter Diagnoses This section includes the primary and secondary diagnoses documented for the Encounter. Date/Time Primary/Secondary Diagnosis Diagnosis Name Provider Source May 14, 2023 03:45 PM PRIMARY Cerebrovascular disease, unspecified EL MACKENZIE [facility] May 14, 2023 03:45 PM SECONDARY Essential (primary) hypertension EL MACKENZIE [facility] May 14, 2023 03:45 PM SECONDARY Unspecified dementia, moderate, without beh/psych/mood/anx EL MACKENZIE [facility] Plan of Treatment: Future Appointments (+ 6 months) and Future Tests (+/- 45 days) The Plan of Treatment section includes future care activities for the patient from all [place] treatmentfacilities. This section includes future appointments and future orders which are active, pending or scheduled. Future Appointments This section includes appointments that were scheduled to occur 6 months from the date of the Encounter, up to a maximum of 20 appointments. The data comes from all [place] treatment facilities. Appointment Date/Time Appointment Type Appointme nt Facility Name May 24, 2023 10:00 AM [place]IC[place] [facility] May 30, 2023 10:00 AM AMB[facility]ORY - NONE [place] [facility] May 30, 2023 10:15 AM [facility] May 30, 2023 11:00 AM [place] - [place]IC[place] [facility] May 30, 2023 12:30 PM AMBUL[place]ORY - NONE [place] [facility] Jun 04, 2023 04:47 PM AMBUL[facility]ORY - NONE [place] [facility] Jun 05, 2023 08:16 PM AMBUL[place]ORY - NONE [place] [facility] Jul 03, 2023 05:30 PM AMBULATORY - REHAB MEDICIN E [facility] Lab Results: +/- 30 days of the encounter This section includes the Chemistry and Hematology Lab Results on record with [place] for the patient. Radiology Reports and Pathology Reports are provided separately, in subsequent sections. Lab Results This section contains the Chemistry/Hematology Results that were resulted 30 days before or 30 daysafter the date of the Encounter. Date/Time Source Result Type Result - Unit Interpretation Reference Range Comment May 30, 2023 10:03 AM [facility] UREA NITROGEN Specimen Type: PLASMA No comment entered. Ordering Provider: CRISTIANE DASILVA Report Released Date/Time: May 28, 2023 09:36 AM Reporting Lab: [facility] [phone] Performing Lab: [facility] [phone] UREA NITROGEN 11 mg/dL 8-26 May 30, 2023 10:03 AM [facility] BNP Specimen Type: PLASMA No comment entered. Ordering Provider: CRISTIANE DASILVA Report Released Date/Time: May 28, 2023 09:36 AM Reporting Lab: [facility] [phone] Performing Lab: [facility] [phone] BNP 108 pg/mL H <99 May 30, 2023 10:03 AM [facility] CREATININE(INCLUDES EGFR) Specimen Type: PLASMA No comment entered. Ordering Provider: CRISTIANE DASILVA Report Released Date/Time: May 28, 2023 09:36 AM Reporting Lab: [facility] [phone] Performing Lab: [facility] [phone] CREATININE 0.8 mg/dL 0.7-1.2 .CREAT EGFR(CKD-EPI) 88 >60 May 30, 2023 10:03 AM [facility] ELECTROLYTES/ANION GAP Specimen Type: PLASMA No comment entered. Ordering Provider: CRISTIANE DASILVA Report Released Date/Time: May 28, 2023 09:36 AM Reporting Lab: [facility] [phone] Performing Lab: [facility] [phone] SODIUM 141 mmol/L 136-145 POTASSIUM 4.2 mmol/L 3.5-5.1 CHLORIDE 105 mmol/L 98-107 CO2 29 mmol/L 22-29 ANION GAP 7 mmol/L 5-15 Apr 23, 2023 03:10 PM [facility] LIPID PANEL,NON-FASTING Specimen Type: PLASMA No comment entered. Ordering Provider: BRINA BIRMINGHAM Report Released Date/Time: Apr 23, 2023 02:30 PM Reporting Lab: [facility] [phone] Performing Lab: [facility] [phone] CHOLESTEROL 108 mg/dL <199 .HDL 38 mg/dL L >40 LDL CALCULATION 38 mg/dL <99 VLDL CALCULATION 32 mg/dL H <29 NON HDL CHOLESTEROL 70 mg/dL <129 TRIG(NON FASTING) 159 mg/dL H <149 Apr 23, 2023 03:10 PM [facility] HEMOGLOBIN A1C Specimen Type: BLOOD Comment: Values obtained from A1C measurements can vary. For typical A1C assays, a reported value of 7.0 could actually be between 6.7 and 7.3 if measured by a reference method. A reported value of 9.0 could actually be between 8.7 and 9.3. Ref: http://www.ng sp.org/CAPdat a.asp Ordering Provider: BRNIA BIRMINGHAM Report Released Date/Time: Apr 23, 2023 02:30 PM Reporting Lab: [facility] [phone] Performing Lab: [facility] [phone] HEMOGLOBIN A1C 5.3 4.0-6.0 Apr 23, 2023 03:10 PM [facility] CBC Specimen Type: BLOOD No comment entered. Ordering Provider: BRINA BIRMINGHAM Report Released Date/Time: Apr 23, 2023 02:30 PM Reporting Lab: [facility] [phone] Performing Lab: [facility] [phone] WBC 6.57 10*3/uL 4.0-11.0 RBC 4.61 10*6/uL 4.6-6.2 HGB 13.8 g/dL 13.5-17.9 HCT 40.4 L 41-54 MCV 87.6 fL 80-100 MCH 29.9 pg 27-33 MCHC 34.2 g/dL 32.0-37.5 PLT 191 10*3/uL 150-400 MPV 11.0 fL H 7.4-10.4 RDW 13.1 11.5-14.5 Apr 23, 2023 03:10 PM [facility] COMPREHENSIVE METABOLIC PANEL+MG Specimen Type: PLASMA No comment entered. Ordering Provider: BRINA BIRMINGHAM Report Released Date/Time: Apr 23, 2023 02:30 PM Reporting Lab: [facility] [phone] Performing Lab: [facility] [phone] CREATININE 0.7 mg/dL 0.7-1.2 UREA NITROGEN 13 mg/dL 8-26 GLUCOSE 97 mg/dL 70-100 SODIUM 142 mmol/L 136-145 POTASSIUM 4.1 mmol/L 3.5-5.1 CHLORIDE 108 mmol/L H 98-107 CO2 26 mmol/L 22-29 CALCIUM 9.3 mg/dL 8.4-10.2 PROTEIN,TOTAL 7.0 g/dL 6.0-8.3 ALBUMIN 3.7 g/dL 3.5-5.2 BILIRUBIN, TOTAL 0.5 mg/dL 0.2-1.2 MAGNESIUM 2.0 mg/dL 1.6-2.6 ANION GAP 8 mmol/L 5-15 ALKALINE PHOSPHATASE 41 U/L 40-150 ALT/SGPT 9 U/L <55 AST/SGOT 19 U/L <34 .CREAT EGFR(CKD-EPI) >90 >60 Vital Signs: All taken on the encounter date This section contains inpatient and outpatient Vital Signs collected on the date of the Encounter. Date/Time Temperature Pulse Blood Pressure Respiratory Rate SP02 Pain Height Weight Body Mass Index Source May 14, 2023 02:22 PM 97.9 F 66 /min 133/70 mm[Hg] 18 /min 96 % 0 [place] [facility] Social History: Smoking Status (Most current) and Tobacco Use (All prior to encounter date) This section includes the most current, and the historical, smoking and tobacco- related health factors from the [place] facility where the Encounter took place. Current Smoking Status This section includes the most current smoking, or tobacco-related health factor, from the [place] facility where the Encounter took place. Date/Time Current Smoking Status Comment Facil ity Apr 23, 2023 01:00 PM VA-TOBACCO NEVER USED [facility] Tobacco Use History This section includes a history of the smoking, or tobacco-related health factors, that were collected on or before the date of the Encounter. The data comes from the [place] facility where the Encounter took place. Date/Time Smoking Status/Tobacco Use Comment F acility Apr 24, 2022 09:43 AM VA-TOBACCO FORMER USER [facility] Apr 24, 2022 09:43 AM VA-TOBACCO QUIT 15 YRS OR MORE [facility] Feb 23, 2021 11:00 AM VA-TOBACCO FORMER USER [facility] Feb 23, 2021 11:00 AM VA-TOBACCO QUIT 15 YRS OR MORE [facility] Aug 04, 2019 03:40 PM VA-TOBACCO FORMER USER [facility] Aug 04, 2019 03:40 PM VA-TOBACCO QUIT 15 YRS OR MORE [facility] Jul 28, 2018 10:03 AM VA-TOBACCO FORMER USER [facility] Jul 28, 2018 10:03 AM VA-TOBACCO QUIT 15 YRS OR MORE [facility] Sep 12, 2017 09:15 AM FORMER TOBACCO USE >1Y <7Y [facility] November 30, 2016 07:51 AM FORMER TOBACCO USER 7Y OR GREATE R [facility] Sep 19, 2015 11:18 AM FORMER TOBACCO USE >1Y <7Y [facility] December 03, 2014 07:58 AM FORMER TOBACCO USER 7Y OR GREATE R [facility] December 01, 2013 07:39 AM LIFETIME NON-TOBACCO USER [facility] May 07, 2012 07:53 AM FORMER TOBACCO USE >1Y <7Y [facility] Aug 01, 2011 08:59 AM FORMER TOBACCO USE >1Y <7Y [facility] Jul 24, 2010 07:49 AM CURRENT TOBACCO USER [facility] Aug 03, 2009 10:18 AM CURRENT TOBACCO USER [facility] Aug 23, 2008 07:54 AM CURRENT TOBACCO USER [facility] Aug 15, 2007 07:52 AM CURRENT TOBACCO USER [facility] 2006 07:43 AM FORMER TOBACCO USE >1Y <7Y [facility] Advance Directives: All historical and current Section Date Range: From patient's date of to the date document was created. This section includes ALL of a patient's completed or amended [place] Advance and Rescinded Directives. The entries below indicate that a directive exists for the patient, but an actual copy is not included with this document. The data comes from all [place] facilities. Date Advance Directives Provider Source Mar 20, 2023 ADVANCE DIRECTIVE DISCUSSION BERTRANDELY TOMLIN [facility] Mar 20, 2023 ADVANCE DIRECTIVE [facility]YELY [facility] Aug 02, 2003 ADVANCE DIRECTIVE ARSENIODEVAN [facility] Radiology Reports: +/- 30 days of the encounter Radiology Reports For cases when an order for radiology services may have been completed prior to the date of the Encounter, the report list includes the Radiology Reports that were completed up to 30 days before dateof the Encounter. For cases when an order for radiology services may have been completed after the date of the Encounter, the report list also includes the Radiology Reports that were completed up to30 days after date of the Encounter. The data comes from all [place] treatment facilities. Date/Time Radiology Report Provider Source May 30, 2023 12:02 PM US CAROTID (BILATE RAL) (P): SHANTANU ZAMORA EVELYNE [id number] -1940 M Ex Date: MAY 30, 2023@12:02 Req Phys: BRINA BIRMINGHAM Pat Loc: [facility] (Req'g Loc) Img Loc: Ultrasound Imaging Service: Unknown (Case [id number] COMPLETE) US CAROTID BILATERAL (US Detailed) CPT:32095 Reason for Study: History of CVA 01/2023, eval for carotid artery stenosis Clinical History: History of CVA 01/2023, eval for carotid artery stenosis Responsible provider name and phone number to notify for critical findings if other than user placing the order and pager listed below: User placing orders pager: [phone] LAST CREATININE 0.8 (04/20/23) Report Status: Verified Date Reported: MAY 30, 2023 Date Verified: MAY 30, 2023 Investigation Lieutenant E-Sig:/ES/WANDA VALDEZ MD Report: Bilateral Carotid Artery Duplex Ultrasound History: History of CVA 01/2023, eval for carotid artery stenosis. Comparison Study: 05/12/2019 carotid ultrasound. Findings: Right side: Plaque: Mild plaque is present at the carotid bifurcation. The lumen of the internal carotid artery was adequately visualized. Proximal CCA: 69 / 10 cm/sec Distal CCA: 77 / 11 cm/sec Carotid bifurcation: 67 / 9 cm/sec External CA: 98 / 12 cm/sec Proximal ICA: 59 / 15 cm/sec Mid ICA: 69 / 16 cm/sec Distal ICA: 77 / 22 cm/sec Vertebral Artery: antegrade Innominate artery: 201 cm/sec Subclavian artery: 274 cm/sec ICA/CCA ratio: 1.00 2.3 x 1.9 x 1.7 cm right superior thyroid nodule incidentally noted. Left side: Plaque: Mild plaque is present at the carotid bifurcation. The lumen of the internal carotid artery was adequately visualized. Proximal CCA: 85 / 16 cm/sec Distal CCA: 74 / 14 cm/sec Carotid bifurcation: 65 / 10 cm/sec External CA: 67 / 8 cm/sec Proximal ICA: 65 / 16 cm/sec Mid ICA: 72 / 23 cm/sec Distal ICA: 70 / 17 cm/sec Vertebral Artery: antegrade Subclavian artery: 106 cm/sec ICA/CCA ratio: 0.98 Impression: 1. Right: Doppler velocity criteria correlate with a less than 50% stenosis of the internal carotid artery. 2. Left: Doppler velocity criteria correlate with a less than 50% stenosis of the internal carotid artery. 3. Incidentally noted right thyroid nodule, which correlates with a biopsy-proven benign follicular nodule on 08/19/2018 thyroid ultrasound. THE REPORT OF THE PATIENT'S FINDINGS ENDS HERE. Please note that as May 11, 2022 the [facility] has adopted the carotid artery stenosis Duplex criteria endorsed by Intersocietal Accreditation Commission(IAC). The changes in criteria may explain differences in the degree of stenosis when compared with prior exams. IWanda, have reviewed the images and report. Primary Interpreting Staff: WANDA VALDEZ MD, RADIOLOGIST (Investigation Lieutenant) Primary Interpreting Resident: TORI ENNIS MD, [employer] WORK SUPERVISOR /WANDA JIMENEZ [facility] May 30, 2023 12:01 PM US VENOUS INSUFFIC IENCY LOWER EXTREMITY (BILATERAL) (P): SHANTANU ZAMORA [id number] -1940 M Exm Date: MAY 30, 2023@12:01 Req Phys: VINNIE,BRINA B Pat Loc: [facility] 4D (Req'g Loc) Img Loc: Ultrasound Imaging Service: Unknown (Case [id number] COMPLETE) US VENOUS EXTREMITY BILATERAL (US Detailed) CPT:17493 Reason for Study: Chronic RLE edema Clinical History: Chronic RLE swelling w/ evidence of b/l varicose veins. Eval for venous insufficiency and r/o DVT Responsible provider name and phone number to notify for critical findings if other than user placing the order and pager listed below: User placing orders pager: [phone] LAST CREATININE 0.8 (11/08/22) Report Status: Verified Date Reported: MAY 30, 2023 Date Verified: MAY 30, 2023 Investigation Lieutenant E-Sig:/ES/VALENTIN BOYKIN MD Report: Lower Extremity Venous Competency Ultrasound, 05/30/2023 Technique: Johnson-scale evaluation with compression and Doppler assessment of deep venous system for spontaneous and phasic flow, as well as the presence of distal augmentation with the patient supine. Color flow images obtained as needed. Grayscale and Duplex Doppler ultrasound of the lower extremity veins (superficial and deep) performed, including incompetency reflux time and compression for thrombus. Superficial incompetency exam performed upright, non-weight bearing on a tilting bed with a steep reverse Trendelenburg tilt. Venous flow is augmented at the calf with manual compression. Comparison study: None. History: Reason for Study: Chronic RLE swelling w/ evidence of b/l varicose veins. Eval for venous insufficiency and r/o DVT Findings: Incompetency is defined as a reflux time greater than or equal to 500 ms. RIGHT lower extremity: The common femoral vein, deep femoral vein, femoral vein and popliteal vein are fully compressible with flow and augmentation. The posterior tibial veins are compressible without evidence for thrombus. The peroneal veins are compressible without evidence of thrombus. Common femoral vein: incompetent Femoral vein thigh prox: competent thigh mid: competent thigh distal: incompetent Popliteal vein: incompetent Posterior tibial vein #1 at the ankle: competent Posterior tibial vein #2 at the ankle: competent Great saphenous vein: origin: competent thigh prox: competent thigh mid: competent thigh distal: competent knee: incompetent calf prox: competent calf mid: competent calf distal: competent Diameter of GSV at SFJ: 8 mm Diameter of GSV at prox thigh: 3 mm Diameter of GSV at knee: 3 mm Diameter of SSV at SPJ: Not seen Small saphenous vein: calf prox: competent calf mid: competent calf distal: competent LEFT lower extremity: The common femoral vein, deep femoral vein, femoral vein and popliteal vein are fully compressible with flow and augmentation. The posterior tibial veins are compressible without evidence for thrombus. The peroneal veins are compressible without evidence of thrombus. Common femoral vein: incompetent Femoral vein thigh prox: competent thigh mid: competent thigh distal: competent Popliteal vein: competent Posterior tibial vein #1 at the ankle: competent Posterior tibial vein #2 at the ankle: competent Great saphenous vein: origin: competent thigh prox: competent thigh mid: competent thigh distal: competent knee: competent calf prox: competent calf mid: incompetent calf distal: competent Diameter of GSV at SFJ: 8 mm Diameter of GSV at prox thigh: 6 mm Diameter of GSV at knee: 3 mm Diameter of SSV at SPJ: Not seen Small saphenous vein: calf prox: competent calf mid: competent calf distal: competent Impression: 1. Incompetency is defined as a reflux time greater than or equal to 500 ms. 2. 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 Focal mildly elevated reflux times at the common femoral vein and the great saphenous vein at the knee. 3. Incompetent left leg veins: Focal mildly elevated reflux times at the common femoral vein and great saphenous vein at the mid calf. 4. No evidence of DVT in either lower extremity. IValentin, have reviewed the images and report. Primary Interpreting Staff: VALENTIN BOYKIN MD, RADIOLOGIST (Investigation Lieutenant) Primary Interpreting Resident: TORI ENNIS MD, [employer] WORK SUPERVISOR /VALENTIN REDD [facility] Encounter Notes: All associated encounter notes This section contains the clinical notes associated to the Encounter. Date/Time Encounter Note(s) Provider Source May 21, 2023 09:32 AM LETTERS: LOCAL TITLE: FOLLOW UP RESULTS LETTER STANDARD TITLE: LETTERS DATE OF NOTE: MAY 21, 2023@09:32 ENTRY DATE: MAY 21, 2023@09:32:40 AUTHOR: EL MACKENZIE EXP COSIGNER: URGENCY: STATUS: COMPLETED [facility] [address] [place] [address] Apr SHANTANU ZAMORA [place] [id number] Dear Perkins: I am writing to inform you of the results of the tests you had done at the [facility]. The tests below were performed and are satisfactory unless otherwise noted. Your Pediatric Hospitalist shows that you were in Afib. I've consulted the anticoagulation department about starting you on an anticoagulant instead of aspirin. Please work with our pharmacist team to adjust your medicine to treat your Afib. Event monitor (Applitoolsopatch) ECG REPORT 14 day heart monitor April 23 through May 07, 2023 INDICATION: Stroke, rule out occult dysrhythmia HEART RATE MIN 47 AVERAGE 69 MAX 114 PVC% 3% PAC% 10.5% INTERPRETATION 1. The underlying rhythm is sinus with a bundle branch block 2. There were 0 patient reported events 3. Paroxysmal atrial fibrillation was present, overall burden 10% Average heart rate in A. fib was 101, range 51-173 There were 8 episodes of A. fib, the longest was 12 hours 9 minutes 4. There were 4 episodes of nonsustained VT, the longest was 13 beats 5. There were frequent PACs with a burden of 10.5% 6. There were occasional PVCs with a burden of 3% If you have any further questions or problems, please contact our nursing staff or me at the following number: [phone]. Sincerely, EL MACKENZIE, SHAHEED, SUPERVISOR [employer] NEUROLOGY NURSE PRACTITIONER EL MACKENZIE [facility] May 14, 2023 02:34 PM NEUROLOGY CONSULT: LOCAL TITLE: NEUROLOGY CONSULT STANDARD TITLE: NEUROLOGY CONSULT DATE OF NOTE: MAY 14, 2023@14:34 ENTRY DATE: MAY 14, 2023@14:34:40 AUTHOR: EL MACKENZIE EXP COSIGNER: URGENCY: STATUS: COMPLETED Mr. Zamora is an 82 yo who presents to Neurology s/p CVA. 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 There are also patchy FLAIR hyperintensities within the supratentorial white matter brainstem and cerebellum. Echocardiogram January 2023 was technically limited with moderately increased LV wall thickness and estimated EF of 65 to 70%. There was no left right shunting by color flow. Now s/p TCU w/ resolution of dysphagia (cleared by speech), some RLE weakness and continues to work with PT/OT. Pending carotid US, Zio patch. HPI: Mr. Zamora is an 82 yo who presents to Neurology for eval of stroke January 2023. He was found in his home likely having knocked over several pieces of furniture with confusion and incontinent of urine/stool. He had profound weakness on exam with elevation of CPK, mild elevation of troponin, AMS and a small CVA on MRI. He had been down for an unknown amount of time and tenecteplase/alteplase were not administered. At the time of the stroke he was living in a townhouse. Since the stroke he has had cogntive eval via OT and it was recommended that he live in a supervised settting and no longer drive. He established with therapies and completed Speech therapy with approval for regular diet. He continues to work with PT and OT though therapy is nearing completion. A Carotid U/S and Heart Monitor have not been completed though are in process. Brain MRI 01/2023 IMPRESSSION: 1. 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 No recent ischemia elsewhere within the brain. 2. Patchy FLAIR hyperintensities within the supratentorial white matter, brainstep and cerebellum. Differential considerations include chronic small vessel ischemic changes versus sequeala of an inflammatory or demyelinating process. 3. Overall moderate generalized parenchymal volume loss. 4. Bilateral subgaleal fluid collections which may reflect 3rd spacing. Daughter showed OT eval on her phone with MOCA of 20/30. 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 (ICD-9-CM 600.01) Depression (ICD-9-CM 311.) Hypertension (SCT [id number]) Osteoarthritis, Knee (ICD-9-CM 715.96) Pain, Shoulder Jt (ICD-9-CM 719.41) Tobacco Use Disorder (ICD-9-CM 305.1) Impaired FASTING Glucose (ICD-9-CM 790.21) Gastroesophageal Reflux Disorder (ICD-9-Iron deficiency anemia (SCT 50628357) Morbid obesity (SCT 823410064) Back pain (SCT 673676172) Thyroid nodule (SCT 992854609) Stroke (SCT 183934977) Active Outpatient Medications (excluding Supplies): Outpatient Medications Status 1) ACETAMINOPHEN 500MG TAB TAKE TWO TABLETS BY MOUTH ACTIVE TWICE A DAY AND TAKE TWO TABLETS EVERY DAY NEEDED FOR PAIN 2) AMLODIPINE BESYLATE 5MG TAB TAKE ONE TABLET BY MOUTH ACTIVE EVERY DAY FOR BLOOD PRESSURE 3) ASPIRIN 81MG CHEW TAB CHEW ONE TABLET BY MOUTH EVERY ACTIVE DAY TO PREVENT BLOOD CLOTS 4) CARBOXYMETHYLCELLULOSE NA 0.5% OPH SOLN INSTILL 1 ACTIVE DROP IN BOTH EYES FOUR TIMES A DAY NEEDED FOR DRY EYES 5) DULOXETINE HCL 60MG EC CAP TAKE ONE CAPSULE BY MOUTH ACTIVE EVERY DAY REPLACES CITALOPRAM PRESCRIPTION 6) FINASTERIDE 5MG TAB TAKE ONE TABLET BY MOUTH EVERY ACTIVE DAY FOR PROSTATE 7) LISINOPRIL 10MG TAB TAKE ONE TABLET BY MOUTH EVERY ACTIVE DAY FOR BLOOD PRESSURE 8) PANTOPRAZOLE NA 40MG EC TAB TAKE ONE TABLET BY MOUTH ACTIVE EVERY EVENING TO DECREASE STOMACH ACID -TAKE ON AN EMPTY STOMACH, AT LEAST ONE-HALF HOUR BEFORE EATING 9) ROSUVASTATIN CA 20MG TAB TAKE ONE TABLET BY MOUTH ACTIVE EVERY DAY FOR CHOLESTEROL 10) SENNOSIDES 8.6MG TAB TAKE ONE TABLET BY MOUTH EVERY ACTIVE DAY AND TAKE ONE TABLET EVERY DAY NEEDED FOR CONSTIPATION 11) SODIUM CHLORIDE 0.9% PF INJ SYR 10ML INJECT 10 ML ACTIVE TOPICALLY DIRECTED FOR WOUND CLEANSING 12) TAMSULOSIN HCL 0.4MG CAP TAKE TWO CAPSULES BY MOUTH ACTIVE AT BEDTIME Temperature: 97.9 F [36.6 C] (05/14/2023 14:22) Blood Pressure: 133/70 (05/14/2023 14:22) Pulse: 66 (05/14/2023 14:22) Respiration: 18 (05/14/2023 14:22) Pain: 0 (05/14/2023 14:22) Pulse Oximetry: 96% (05/14/2023 14:22) Physical Exam General: Cooperative, well nourished, and in no acute distress. Neurological: Mental Status: Alert and engaged Oriented x4. Attentive to interview. Cranial Nerves: CN I:deferred CN II: PERRLA, peripheral vision intact CN III, IV, : EOMI intact. no apparent nystagmus. CN V: Intact/symmetrical facial sensation, CN VII: Intact/symmetrical eyebrow raise, eyelid closure, smile. CN VIII: Intact to finger rubs bilaterally CN IX, X: Intact/symmetrical palate elevation. CN XI: SCM normal b/l, shoulder elevation normal b/l. CN XII: Tongue protrudes midline without atrophy. Motor: Normal bulk/tone. No fasciculations. Movements are fluid. Strength: RUE: 5/5 shoulder abd, 5/5 elbow flex/ext, 5/5 wrist flex/ext. Vocational Rehabilitation Consultant 5/5 LUE: 5/5 shoulder abd, 5/5 elbow flex/ext, 5/5 wrist flex/ext. Vocational Rehabilitation Consultant 5/5 RLE: 5/5 hip flex, 5/5 knee flex/ext, 5/5 dorsi/plantar flexion LLE: 5/5 hip flex, 5/5 knee flex/ext, 5/5 dorsi/plantar flexion. Sensation: Normal light touch. Reflexes: 2+ and symmetrical at biceps, brachioradialis, patella, achilles. No myoclonus. Cerebellum: Rapid alternating hand movements intact bilaterally, Romberg positive, finger tapping intact bilaterally. Gait: Slow unsteady gait with right leg drag and use of rollator for most ambulation IMPRESSION: CVA Dementia HTN The patient's stroke was quite some time ago. Complete work up has already been initiated by primary care. I will alert myself to the results of engine monitor and Carotid U/S and follow up as needed. SEcondary stroke prevention has been optimized. Education provided in much of the visit about his OT eval and cognitive assessments, discussion about driving, why and how he may have had a stroke as well as what tests we're waiting for in terms of further understanding his presentation. He has already been established with therapies on an outpatient basis so Stroke Rehab is not indicated in his situation. Discussion on healthy lifestyle factors that will contribute to recovery and aim at prevention of subsequent stroke provided. Patient with newly diagnosed dementia and restrictions on living arrangements and driving. Reviewed outside records and provided reassurance of current arrangements. PLAN: 1. RTC as needed 2. WIll follow on Carotid U/S and Pediatric Hospitalist 3. Secondary Stroke Prevention BP < 130/80 LDL 40-70 A1c < 7 ASA per PCP Statin per PCP 60 minutes spent in review of records, examination and in documentation. PLAN: Secondary Stroke Prevention LDL 40-70 (38) BP < 130/80 A1c < 7 (5.3) Continue ASA per PCP Continue Statin per PCP /chadwick/ EL MACKENZIE DNP, [employer] NEUROLOGY NURSE PRACTITIONER Signed: 05/14/2023 15:45 EL MACKENZIE [facility] May 14, 2023 02:24 PM NEUROLOGY NURSING OUTPATIENT NOTE: LOCAL TITLE: NEUROLOGY CLINIC NURSING NOTE STANDARD TITLE: NEUROLOGY NURSING OUTPATIENT NOTE DATE OF NOTE: MAY 14, 2023@14:24 ENTRY DATE: MAY 14, 2023@14:26:11 AUTHOR: CHETAN ALANIS EXP COSIGNER: URGENCY: STATUS: COMPLETED C-SSRS Screening Black Suicide Severity Rating Scale (C-SSRS) screener 1. Over the past month, have you wished you were or wished you could go to sleep and not wake up? No 2. Over the past month, have you had any actual thoughts of killing yourself? No 3. Over the past month, have you been thinking about how you might do this? Response not required due to responses to other questions. 4. Over the past month, have you had these thoughts and had some intention of acting on them? Response not required due to responses to other questions. 5. Over the past month, have you started to work out or worked out the details of how to kill yourself? Response not required due to responses to other questions. 6. If yes, at any time in the past month did you intend to carry out this plan? Response not required due to responses to other questions. 7. In your lifetime, have you ever done anything, started to do anything, or prepared to do anything to end your life (for example, collected pills, obtained a gun, gave away valuables, went to the roof but didn't jump)? No 8. If YES, was this within the past 3 months? Response not required due to responses to other questions. Type of visit: Appointment Check In Reason for Visit: Consult Vital Signs: Blood Pressure: 133/70 (05/14/2023 14:22) Pulse: 66 (05/14/2023 14:22) Respiration: 18 (05/14/2023 14:22) Temperature: 97.9 F [36.6 C] (05/14/2023 14:22) Weight: 272.2 lb [123.47 kg] (04/23/2023 13:10) Height: 71.5 in [181.6 cm] (04/23/2023 13:11) BMI: 37.5 Pain: 0 (05/14/2023 14:22) Allergies: MORPHINE (Apr 24, 2021) Medications: Non-VA/Over the Counter/Herbal Medications: Patient reports taking outside and/or herbal medications. CPRS medication list has been updated to reflect changes and/or new medications. See list below. Active Outpatient Medications and Supplies: Active Outpatient Medications (including Supplies): Active Outpatient Medications Status 1) ACETAMINOPHEN 500MG TAB TAKE TWO TABLETS BY MOUTH ACTIVE TWICE A DAY AND TAKE TWO TABLETS EVERY DAY NEEDED FOR PAIN 2) AMLODIPINE BESYLATE 5MG TAB TAKE ONE TABLET BY MOUTH ACTIVE EVERY DAY FOR BLOOD PRESSURE 3) APPLICATOR,COTTON TIP STERILE 1 APPLICATOR TOPICALLY ACTIVE DIRECTED FOR SKIN TEAR/WOUND CARES 4) ASPIRIN 81MG CHEW TAB CHEW ONE TABLET BY MOUTH EVERY ACTIVE DAY TO PREVENT BLOOD CLOTS 5) CARBOXYMETHYLCELLULOSE NA 0.5% OPH SOLN INSTILL 1 ACTIVE DROP IN BOTH EYES FOUR TIMES A DAY NEEDED FOR DRY EYES 6) DRESS,MEPILEX BORDER FLEX 4X4IN #[id number] APPLY 1 ACTIVE DRESSING TOPICALLY EVERY DAY FOR SKIN TEAR 7) DULOXETINE HCL 60MG EC CAP TAKE ONE CAPSULE BY MOUTH ACTIVE EVERY DAY REPLACES CITALOPRAM PRESCRIPTION 8) FINASTERIDE 5MG TAB TAKE ONE TABLET BY MOUTH EVERY ACTIVE DAY FOR PROSTATE 9) GAUZE PAD 4IN X 4IN 8-PLY NONSTERILE USE GAUZE ACTIVE SPONGE/PAD GAUZE PAD 4IN X 4IN 8-PLY NONSTERILE TOPICALLY DIRECTED FOR WOUND CARE 10) LISINOPRIL 10MG TAB TAKE ONE TABLET BY MOUTH EVERY ACTIVE DAY FOR BLOOD PRESSURE 11) PANTOPRAZOLE NA 40MG EC TAB TAKE ONE TABLET BY MOUTH ACTIVE EVERY EVENING TO DECREASE STOMACH ACID -TAKE ON AN EMPTY STOMACH, AT LEAST ONE-HALF HOUR BEFORE EATING 12) ROSUVASTATIN CA 20MG TAB TAKE ONE TABLET BY MOUTH ACTIVE EVERY DAY FOR CHOLESTEROL 13) SENNOSIDES 8.6MG TAB TAKE ONE TABLET BY MOUTH EVERY ACTIVE DAY AND TAKE ONE TABLET EVERY DAY NEEDED FOR CONSTIPATION 14) SODIUM CHLORIDE 0.9% PF INJ SYR 10ML INJECT 10 ML ACTIVE TOPICALLY DIRECTED FOR WOUND CLEANSING 15) TAMSULOSIN HCL 0.4MG CAP TAKE TWO CAPSULES BY MOUTH ACTIVE AT BEDTIME Patient reports the following changes regarding the current pharmacy list of medications: The above medication list confirmed with patient. A copy of the above medication list given to the MD for review and update. Provider will give printed copy of medication list to patient with any changes documented on printed medication list. /chadwick/ CHETAN ALANIS LPN LPN Signed: 05/14/2023 14:28 CHETAN ALANIS [facility]
--- OUTSIDE RECORDS SUMMARY | 2024-02-17 12:48 | XMS_ITS | Encounter Summary ---
Author Name [facility] Organization [facility] Address [address] [place] [address] Care Team Providers Care Senior Technical Support Engineer Name Role Phone BRINA BIRMINGHAM Primary Care [...] PLATI LULA BLUE COMP Jul 22, 2016 [id number] [phone] JACK COHN PATIENT ANTHEM [employer] PREFERRED PROVIDER ORGANIZAT ION (PPO) PLATI NUM BLUE COMP Jul 22, 2016 [id number] [phone] JACK COHN PATIENT ANTHEM [place] PREFERRED PROVIDER ORGANIZAT ION (PPO) PLATI NUM BLUE COMP Jul 22, 2016 [id number] [phone] JACK COHN PATIENT [place] PREFERRED PROVIDER ORGANIZAT ION (PPO) PLATI NUM BLUE COMP Jul 22, 2016 [id number] [phone] JACK COHN PATIENT BCBS [facility] (WNR) MEDICARE ADVANTAGE [facility] (WNR) Jul 22, 2016 [id number] [phone] JACK COHN PATIENT BCBS [facility] (WNR) MEDICARE ADVANTAGE [facility] (WNR) Jul 22, 2016 [id number] [phone] JACK COHN PATIENT MEDICARE (WNR) MEDICARE (M) PART A November 19, 2004 PART A [id number] [phone] JACK COHN PATIENT MEDICARE (WNR) MEDICARE (M) PART B November 19, 2004 PART B [id number] JACK COHN PATIENT PRIME THERAPEUTI CS RX PRESCRIPT ION BCBS [facility] Jul 22, 2016 [id number] [phone] JACK COHN PATIENT Selected Encounter This section includes the information on record at MD for the Encounter. Date/Time Encounter Type Encounter Description Reason Provider Source Jun 03, 2023 11:51 AM QNHP OL DIG ASSMT&MGMT 21+ CLINICAL PHARMACY ICD-10-CM Z79.01 [facility]FP (current) use of anticoagulants [facility]AN [facility] Encounter Template Text not used by MD Assessments - Encounter Diagnoses This section includes the primary and secondary diagnoses documented for the Encounter. Date/Time Primary/Secondary Diagnosis Diagnosis Name Provider Source Jun 03, 2023 12:24 PM PRIMARY MCFP (current) use of anticoagulants [facility] Jun 03, 2023 12:24 PM SECONDARY [facility]bral infarction, [facility] Jun 03, 2023 12:24 PM SECONDARY Encounter for therapeutic drug level monitoring [facility] Jun 03, 2023 12:24 PM SECONDARY Unspecified atrial fibrillation [facility] Plan of Treatment: Future Appointments (+ 6 months) and Future Tests (+/- 45 days) The Plan of Treatment section includes future care activities for the patient [facility] This section includes future appointments and future orders which are active, pending or scheduled. Future Appointments This section includes appointments that were scheduled to occur 6 months from the date of the Encounter, up to a maximum of 20 appointments. The data comes from all MD treatment facilities. Appointment Date/Time Appointment Type Appointme nt Facility Name Jun 04, 2023 04:47 PM AMBULATORY - NONE [facility] Jun 05, 2023 08:16 PM AMBULATORY - NONE [facility] Jul 03, 2023 05:30 PM AMBULATORY - REHAB MEDICIN E [facility] Lab Results: +/- 30 days of the encounter This section includes the Chemistry and Hematology Lab Results on record with MD for the patient. Radiology Reports and Pathology Reports are provided separately, in subsequent sections. Lab Results This section contains the Chemistry/Hematology Results that were resulted 30 days before or 30 daysafter the date of the Encounter. Date/Time Source Result Type Result - Unit Interpretation Reference Range Comment May 30, 2023 10:03 AM [facility] UREA NITROGEN Specimen Type: PLASMA No comment entered. Ordering Provider: CRISTIANE DASILVA Report Released Date/Time: May 28, 2023 09:36 AM Reporting Lab: [facility] [id number] Performing Lab: [facility] [address] UREA NITROGEN 11 mg/dL 8-26 May 30, 2023 10:03 AM [facility] BNP Specimen Type: PLASMA No comment entered. Ordering Provider: CRISTIANE DASILVA Report Released Date/Time: May 28, 2023 09:36 AM Reporting Lab: [facility] [id number] Performing Lab: [facility] [id number] BNP 108 pg/mL H <99 May 30, 2023 10:03 AM [facility] CREATININE(INCLUDES EGFR) Specimen Type: PLASMA No comment entered. Ordering Provider: CRISTIANE DASILVA Report Released Date/Time: May 28, 2023 09:36 AM Reporting Lab: [facility] [address] Performing Lab: [facility] [id number] CREATININE 0.8 mg/dL 0.7-1.2 .CREAT EGFR(CKD-EPI ) 88 >60 May 30, 2023 10:03 AM [facility] ELECTROLYTES/ANION GAP Specimen Type: PLASMA No comment entered. Ordering Provider: CRISTIANE DASILVA Report Released Date/Time: May 28, 2023 09:36 AM Reporting Lab: [facility] [id number] Performing Lab: [facility] [address] SODIUM 141 mmol/L 136-145 POTASSIUM 4.2 mmol/L 3.5-5.1 CHLORIDE 105 mmol/L 98-107 CO2 29 mmol/L 22-29 ANION GAP 7 mmol/L 5-15 Social History: Smoking Status (Most current) and Tobacco Use (All prior to encounter date) This section includes the most current, and the historical, smoking and tobacco- related health factors from the MD facility where the Encounter took place. Current Smoking Status This section includes the most current smoking, or tobacco-related health factor, from the MD facility where the Encounter took place. Date/Time Current Smoking Status Comment Facil ity Apr 23, 2023 01:00 PM VA-TOBACCO NEVER USED [facility] Tobacco Use History This section includes a history of the smoking, or tobacco-related health factors, that were collected on or before the date of the Encounter. The data comes from the MD facility where the Encounter took place. Date/Time Smoking Status/Tobacco Use Comment F acility Apr 24, 2022 09:43 AM VA-TOBACCO FORMER USER [facility] Apr 24, 2022 09:43 AM VA-TOBACCO QUIT 15 YRS OR MORE [facility] Feb 23, 2021 11:00 AM VA-TOBACCO FORMER USER [facility] Feb 23, 2021 11:00 AM VA-TOBACCO QUIT 15 YRS OR MORE [facility] Aug 04, 2019 03:40 PM VA-TOBACCO FORMER USER [facility] Aug 04, 2019 03:40 PM VA-TOBACCO QUIT 15 YRS OR MORE [facility] Jul 28, 2018 10:03 AM VA-TOBACCO FORMER USER [facility] Jul 28, 2018 10:03 AM VA-TOBACCO QUIT 15 YRS OR MORE [facility] Sep 12, 2017 09:15 AM FORMER TOBACCO USE >1Y <7Y [facility] November 30, 2016 07:51 AM FORMER TOBACCO USER 7Y OR GREATE R [facility] Sep 19, 2015 11:18 AM FORMER TOBACCO USE >1Y <7Y [facility] December 03, 2014 07:58 AM FORMER TOBACCO USER 7Y OR GREATE R [facility] December 01, 2013 07:39 AM LIFETIME NON-TOBACCO USER [facility] May 07, 2012 07:53 AM FORMER TOBACCO USE >1Y <7Y [facility] Aug 01, 2011 08:59 AM FORMER TOBACCO USE >1Y <7Y [facility] Jul 24, 2010 07:49 AM CURRENT TOBACCO USER [facility] Aug 03, 2009 10:18 AM CURRENT TOBACCO USER [facility] Aug 23, 2008 07:54 AM CURRENT TOBACCO USER [facility] Aug 15, 2007 07:52 AM CURRENT TOBACCO USER [facility] 2006 07:43 AM FORMER TOBACCO USE >1Y <7Y [facility] Advance Directives: All historical and current Section Date Range: From patient's date of to the date document was created. This section includes ALL of a patient's completed or amended MD Advance and Rescinded Directives. The entries below indicate that a directive exists for the patient, but an actual copy is not included with this document. The data comes from all MD facilities. Date Advance Directives Provider Source Mar 20, 2023 ADVANCE DIRECTIVE DISCUSSION ELY BERTRAND [facility] Mar 20, 2023 ADVANCE DIRECTIVE BERTRAND,ELY Pita [facility] Aug 02, 2003 ADVANCE DIRECTIVE [facility]AN [facility] Radiology Reports: +/- 30 days of the [...] the Encounter. The data comes from all MD treatment facilities. Date/Time Radiology Report Provider Source May 30, 2023 12:02 PM US CAROTID (BILATE RAL) (P): SHANTANU COHN EVELYNE [id number] -[id number] M Exm Date: MAY 30, 2023@12:02 Req Phys: BRINA BIRMINGHAM Pat Loc: [facility] (Req'g Loc) Img Loc: Ultrasound Imaging Service: Unknown (Case [id number] COMPLETE) US CAROTID BILATERAL (US Detailed) CPT:31077 Reason for Study: History of CVA 01/2023, eval for carotid artery stenosis Clinical History: History of CVA 01/2023, eval for carotid artery stenosis Responsible provider name and phone number to notify for critical findings if other than user placing the order and pager listed below: User placing orders pager: [phone] LAST CREATININE 0.8 (11/08/22) Report Status: Verified Date Reported: MAY 30, 2023 Date Verified: MAY 30, 2023 [facility] E-Sig:/ES/WANDA VALDEZ MD Report: Bilateral Carotid Artery [...] note that as May 11, 2022 the [facility] Non-invasive Vascular Lab has adopted the carotid artery stenosis Duplex criteria endorsed by Intersocietal Accreditation Commission(IAC). The changes in criteria may explain differences in the degree of stenosis when compared with prior exams. IWanda, have reviewed the images and report. Primary Interpreting Staff: WANDA VALDEZ MD, RADIOLOGIST ([facility]) Primary Interpreting Resident: TORI ENNIS MD, LIQUID FERTILIZER SERVICER /WANDA JIMENEZ [facility] May 30, 2023 12:01 PM US VENOUS INSUFFIC IENCY LOWER EXTREMITY (BILATERAL) (P): SHANTANU COHN [id number] -1940 M Exm Date: MAY 30, 2023@12:01 Req Phys: BRINA BIRMINGHAM Pat Loc: [facility] (Req'g Loc) Img Loc: Ultrasound Imaging Service: Unknown (Case [id number] COMPLETE) US VENOUS EXTREMITY BILATERAL (US Detailed) CPT:48369 Reason for Study: Chronic RLE edema Clinical History: Chronic RLE swelling w/ evidence of b/l varicose veins. Eval for venous insufficiency and r/o DVT Responsible provider name and phone number to notify for critical findings if other than user placing the order and pager listed below: User placing orders pager: [phone] LAST CREATININE 0.8 (11/08/22) Report Status: Verified Date Reported: MAY 30, 2023 Date Verified: MAY 30, 2023 Bung Sewer E-Sig:/ES/VALENTIN BOYKIN MD Report: Lower Extremity Venous [...] evidence of DVT in either lower extremity. I, Valentin Boykin, have reviewed the images and report. Primary Interpreting Staff: VALENTIN BOYKIN MD, RADIOLOGIST ([facility]) Primary Interpreting Resident: TORI ENNIS MD, LIQUID FERTILIZER SERVICER /VALENTIN REDD [facility] Encounter Notes: All associated encounter notes This section contains the clinical notes associated to the Encounter. Date/Time Encounter Note(s) Provider Source Jun 03, 2023 12:57 PM ADDENDUM: LOCAL TITLE: Addendum STANDARD TITLE: ADDENDUM DATE OF NOTE: JUN 03, 2023@12:57:32 ENTRY DATE: JUN 03, 2023@12:57:34 AUTHOR: JACOB DRAPER EXP COSIGNER: URGENCY: STATUS: COMPLETED With discussion of apixaban education today, daughter wanted to make sure that an updated medication list was sent over to [facility] with PCP signature in order to discontinue aspirin use and start apixaban use. It appears this was requested last week so just wanted to verify that this was taken care of. Thank you. /chadwick/ Jacob Draper PharmD, BCACP Clinical Service Restorer Emergency Signed: 06/03/2023 12:59 Receipt Acknowledged By: 06/03/2023 14:32 /es/ ERINN FLANNERY RN REGISTERED NURSE --- Original Document --- 06/03/23 ANTICOAGULATION CLINIC CONSULT: DOAC INITIATION - Anticoagulant: Apixaban 5mg q12h - Indication(s): A-fib - Relevant PMH: - Left centrum semiovale CVA dx 01/2023 - h/o cognitive impairment, lives at [facility] and has HHN help - Prior major bleeds: none - Prior anticoagulants: none - Start date: 05/2023 - Anticipated duration: indefinite - [id number] = age+2, CVA+2, HTN = 5: MODERATE RISK - HASBLED = age, CVA = 2: MODERATE RISK - Notes: Best to speak with daughter, Raine Zaidi, regarding patient (P:[phone]). - Care Coordination: - Patient resides at [facility] who are currently helping set-up/administer meds (P:[phone]; F:[phone]). 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 (P:[phone]; F:[phone]) HHN: lEe P:[phone] - will be starting w/ pt and possibly switch to [facility] set-up meds with pt taking on his own. SUBJECTIVE/OBJECTIVE: Obtained from chart review, [facility]/outside records, and pts daughter Raine today by phone. No Active bleeding/increased bleeding risk: No Active endocarditis: No Falls risk: - Counseled on what to do for fall/head injury YES Abnormal mental status\compliance concerns: - h/o cognitive impairment, lives at [facility] and has HHN help No Significant drug interactions: - Continues: APAP PRN for pain - ASPIRIN use was discontinued upon starting anticoagulation therapy - No NSAID/ASA use reported; counseled to avoid d/t bleed risk YES Alcohol use: - Baseline: minimal intake, maybe ~ 1 drink/mon - Discussed recs for NMT 2 drinks/24 hrs and counseled on inc bleed risk No Renal or hepatic dysfunction: No Significant mitral stenosis, endocarditis, or mechanical valve replacement: - ECHO 02/16/23 [facility] reviewed: EF 55-60% w/ normal wall motion No Active cancer/thrombophilia: No Prior bariatric or bowel resection surgery: No Weight >150kg or BMI >50: Dashboard flags: renewal due w/in 30 days Allergies: MORPHINE (Apr 24, 2021) Active and Recently Outpatient Medications (excluding Supplies): Active Outpatient Medications Status 1) ACETAMINOPHEN 500MG TAB TAKE TWO TABLETS BY MOUTH ACTIVE TWICE A DAY AND TAKE TWO TABLETS EVERY DAY NEEDED FOR PAIN 2) AMLODIPINE BESYLATE 5MG TAB TAKE ONE TABLET BY MOUTH ACTIVE EVERY DAY FOR BLOOD PRESSURE 3) APIXABAN 5MG TAB TAKE ONE TABLET BY MOUTH EVERY 12 ACTIVE HOURS TO PREVENT STROKES 4) CARBOXYMETHYLCELLULOSE NA 0.5% OPH SOLN INSTILL 1 ACTIVE DROP IN BOTH EYES FOUR TIMES A DAY NEEDED FOR DRY EYES 5) DULOXETINE HCL 60MG EC CAP TAKE ONE CAPSULE BY MOUTH ACTIVE EVERY DAY REPLACES CITALOPRAM PRESCRIPTION 6) FINASTERIDE 5MG TAB TAKE ONE TABLET BY MOUTH EVERY ACTIVE DAY FOR PROSTATE 7) LISINOPRIL 10MG TAB TAKE ONE TABLET BY MOUTH EVERY ACTIVE (S) DAY FOR BLOOD PRESSURE 8) METOPROLOL TARTRATE 25MG TAB TAKE ONE TABLET BY MOUTH ACTIVE TWICE A DAY FOR CHEST PAIN 9) PANTOPRAZOLE NA 40MG EC TAB TAKE ONE TABLET BY MOUTH ACTIVE EVERY EVENING TO DECREASE STOMACH ACID -TAKE ON AN EMPTY STOMACH, AT LEAST ONE-HALF HOUR BEFORE EATING 10) ROSUVASTATIN CA 20MG TAB TAKE ONE TABLET BY MOUTH ACTIVE EVERY DAY FOR CHOLESTEROL 11) SENNOSIDES 8.6MG TAB TAKE ONE TABLET BY MOUTH EVERY ACTIVE DAY AND TAKE ONE TABLET EVERY DAY NEEDED FOR CONSTIPATION 12) TAMSULOSIN HCL 0.4MG CAP TAKE TWO CAPSULES BY MOUTH ACTIVE AT BEDTIME Inactive Outpatient Medications Status 1) SODIUM CHLORIDE 0.9% PF INJ SYR 10ML INJECT 10 ML TOPICALLY DIRECTED FOR WOUND CLEANSING 13 Total Medications LABS ---- Age: 82 Weight: 272.2 lb [123.47 kg] (04/23/2023 13:10) BMI: 37.5 Height: 71.5 in [181.6 cm] (04/23/2023 13:11) CREATININE 0.8 PLASMA (05/30/23 10:03) 0.7 PLASMA (04/23/23 15:10) 0.8 PLASMA (11/08/22 09:36) Non-VA Scr excluded from calculation: FxJa=947.33 (Wt: 04/23/2023 13:10) (Actual Body Weight) Collection DT Spec WBC HGB HCT PLT MCV 04/23/2023 15:10 BLOOD 6.57 13.8 40.4 L 191 87.6 11/08/2022 09:36 BLOOD 7.41 15.1 46.3 175 86.5 Collection DT Specimen Test Name Result Units Ref Range 04/23/2023 15:10 PLASMA BILIRUBIN, TOTAL 0.5 mg/dL 0.2 - 1.2 04/23/2023 15:10 PLASMA ALKALINE PHOSPHAT 41 U/L 40 - 150 04/23/2023 15:10 PLASMA AST/SGOT 19 U/L Ref: <=34 04/23/2023 15:10 PLASMA ALT/SGPT 9 U/L Ref: <=55 Collection DT Specimen Test Name Result Units Ref Range 09/16/2018 14:30 PLASMA .INR 1.23 No data available for: APTT ASSESSMENT/PLAN: Appropriate for DOAC use. Patient does NOT meet 2 out of 3 criteria (age >/= 80 years, creatinine >/=1.5, weight </= 60 kg) for apixaban dose reduction in A.fib. New start baseline labs within the past ~30 days available & acceptable. - Approve DOAC use: Apixaban 5mg q12h - Education attempt(s) below. Will mail DOAC education materials and updated Rx w/ refills. - Appropriate review planned: initial, ~4-week, periodic. - Lab monitoring frequency defined by dashboard or as clinically indicated. - Monitor dashboard for labs, drug interactions, and compliance. - rodent exterminator use of anticoagulants added to problem list. Time spent: 30 min Patient Education of Treatment plan: Patient's daughter indicates readiness to learn, verbalizes understanding, agreement and satisfaction with the treatment plan. Denies further questions. Anticoagulation Educational Assessment Part One Barriers/Special Needs No barriers identified Part Two Readiness to learn No barriers identified PARTICIPANTS: Patient's daughter Raine TEACHING STRATEGY: 1:1, Written/print materials Apixaban Content Reviewed: o Recognize medication by names (apixaban (Eliquis)) & proper tablet identification (on prescription bottle) o Indication, expected duration for therapy o Daily dosage, importance of medication adherence, management of missed/extra doses o Monitoring requirements, importance of compliance with follow-up lab monitoring requirements o Risks and benefits of therapy to include possible adverse reactions or medication failure and what to do if these occur; fall-associated risks & importance of seeking urgent care if falls occur o Interactions (drug, alcohol, and disease states) o Importance of informing your anticoagulation provider as soon as possible when major changes in medications/health occur, upcoming procedures are expected that require interruption, or for evidence of new bleeds or thromboses Patient received a written, detailed copy of the educational handout to include contact information for anticoagulation clinic and instructions for how to obtain supply of medication. PATIENT/FAMILY RESPONSE (OUTCOME): Verbalizes critical information and understanding about the topic FOLLOW-UP RECOMMENDED: None needed Time spent on education: 15 minutes /chadwick/ Jacob Draper PharmD, BCACP Clinical Service Restorer Emergency Signed: 06/03/2023 12:24 06/03/2023 ADDENDUM STATUS: COMPLETED This request was already completed. /chadwick/ ERINN FLANNERY RN REGISTERED NURSE Signed: 06/03/2023 14:32 JACOB DRAPER [facility] Jun 03, 2023 11:51 AM MEDICATION MGT CONSULT: LOCAL TITLE: ANTICOAGULATION CLINIC CONSULT STANDARD TITLE: MEDICATION MGT CONSULT DATE OF NOTE: JUN 03, 2023@11:51 ENTRY DATE: JUN 03, 2023@11:51:55 AUTHOR: JACOB DRAPER EXP COSIGNER: URGENCY: STATUS: COMPLETED ANTICOAGULATION CLINIC CONSULT Has ADDENDA DOAC INITIATION - Anticoagulant: Apixaban 5mg q12h - Indication(s): A-fib - Relevant PMH: - Left centrum semiovale CVA dx 01/2023 - h/o cognitive impairment, lives at [facility] and has HHN help - Prior major bleeds: none - Prior anticoagulants: none - Start date: 05/2023 - Anticipated duration: indefinite - [id number] = age+2, CVA+2, HTN = 5: MODERATE RISK - HASBLED = age, CVA = 2: MODERATE RISK - Notes: Best to speak with daughter, Raine Zaidi, regarding patient (P:[phone]). - Care Coordination: - Patient resides at [facility] who are currently helping set-up/administer meds (P:[phone]; F:[phone]). 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 (P:[phone]; F:[phone]) HHN: [facility] P:[phone] - will be starting w/ pt and possibly switch to [facility] set-up meds with pt taking on his own. SUBJECTIVE/OBJECTIVE: Obtained from chart review, [facility]/outside records, and pts daughter Raine today by phone. No Active bleeding/increased bleeding risk: No Active endocarditis: No Falls risk: - Counseled on what to do for fall/head injury YES Abnormal mental status\compliance concerns: - h/o cognitive impairment, lives at [facility] and has HHN help No Significant drug interactions: - Continues: APAP PRN for pain - ASPIRIN use was discontinued upon starting anticoagulation therapy - No NSAID/ASA use reported; counseled to avoid d/t bleed risk YES Alcohol use: - Baseline: minimal intake, maybe ~ 1 drink/mon - Discussed recs for NMT 2 drinks/24 hrs and counseled on inc bleed risk No Renal or hepatic dysfunction: No Significant mitral stenosis, endocarditis, or mechanical valve replacement: - ECHO 02/16/23 [facility] reviewed: EF 55-60% w/ normal wall motion No Active cancer/thrombophilia: No Prior bariatric or bowel resection surgery: No Weight >150kg or BMI >50: Dashboard flags: renewal due w/in 30 days Allergies: MORPHINE (Apr 24, 2021) Active and Recently Outpatient Medications (excluding Supplies): Active Outpatient Medications Status 1) ACETAMINOPHEN 500MG TAB TAKE TWO TABLETS BY MOUTH ACTIVE TWICE A DAY AND TAKE TWO TABLETS EVERY DAY NEEDED FOR PAIN 2) AMLODIPINE BESYLATE 5MG TAB TAKE ONE TABLET BY MOUTH ACTIVE EVERY DAY FOR BLOOD PRESSURE 3) APIXABAN 5MG TAB TAKE ONE TABLET BY MOUTH EVERY 12 ACTIVE HOURS TO PREVENT STROKES 4) CARBOXYMETHYLCELLULOSE NA 0.5% OPH SOLN INSTILL 1 ACTIVE DROP IN BOTH EYES FOUR TIMES A DAY NEEDED FOR DRY EYES 5) DULOXETINE HCL 60MG EC CAP TAKE ONE CAPSULE BY MOUTH ACTIVE EVERY DAY REPLACES CITALOPRAM PRESCRIPTION 6) FINASTERIDE 5MG TAB TAKE ONE TABLET BY MOUTH EVERY ACTIVE DAY FOR PROSTATE 7) LISINOPRIL 10MG TAB TAKE ONE TABLET BY MOUTH EVERY ACTIVE (S) DAY FOR BLOOD PRESSURE 8) METOPROLOL TARTRATE 25MG TAB TAKE ONE TABLET BY MOUTH ACTIVE TWICE A DAY FOR CHEST PAIN 9) PANTOPRAZOLE NA 40MG EC TAB TAKE ONE TABLET BY MOUTH ACTIVE EVERY EVENING TO DECREASE STOMACH ACID -TAKE ON AN EMPTY STOMACH, AT LEAST ONE-HALF HOUR BEFORE EATING 10) ROSUVASTATIN CA 20MG TAB TAKE ONE TABLET BY MOUTH ACTIVE EVERY DAY FOR CHOLESTEROL 11) SENNOSIDES 8.6MG TAB TAKE ONE TABLET BY MOUTH EVERY ACTIVE DAY AND TAKE ONE TABLET EVERY DAY NEEDED FOR CONSTIPATION 12) TAMSULOSIN HCL 0.4MG CAP TAKE TWO CAPSULES BY MOUTH ACTIVE AT BEDTIME Inactive Outpatient Medications Status 1) SODIUM CHLORIDE 0.9% PF INJ SYR 10ML INJECT 10 ML TOPICALLY DIRECTED FOR WOUND CLEANSING 13 Total Medications LABS ---- Age: 82 Weight: 272.2 lb [123.47 kg] (04/23/2023 13:10) BMI: 37.5 Height: 71.5 in [181.6 cm] (04/23/2023 13:11) CREATININE 0.8 PLASMA (05/30/23 10:03) 0.7 PLASMA (04/23/23 15:10) 0.8 PLASMA (11/08/22 09:36) Non-VA Scr excluded from calculation: PsGp=525.33 (Wt: 04/23/2023 13:10) (Actual Body Weight) Collection DT Spec WBC HGB HCT PLT MCV 04/23/2023 15:10 BLOOD 6.57 13.8 40.4 L 191 87.6 11/08/2022 09:36 BLOOD 7.41 15.1 46.3 175 86.5 Collection DT Specimen Test Name Result Units Ref Range 04/23/2023 15:10 PLASMA BILIRUBIN, TOTAL 0.5 mg/dL 0.2 - 1.2 04/23/2023 15:10 PLASMA ALKALINE PHOSPHAT 41 U/L 40 - 150 04/23/2023 15:10 PLASMA AST/SGOT 19 U/L Ref: <=34 04/23/2023 15:10 PLASMA ALT/SGPT 9 U/L Ref: <=55 Collection DT Specimen Test Name Result Units Ref Range 09/16/2018 14:30 PLASMA .INR 1.23 No data available for: APTT ASSESSMENT/PLAN: Appropriate for DOAC use. Patient does NOT meet 2 out of 3 criteria (age >/= 80 years, creatinine >/=1.5, weight </= 60 kg) for apixaban dose reduction in A.fib. New start baseline labs within the past ~30 days available & acceptable. - Approve DOAC use: Apixaban 5mg q12h - Education attempt(s) below. Will mail DOAC education materials and updated Rx w/ refills. - Appropriate review planned: initial, ~4-week, periodic. - Lab monitoring frequency defined by dashboard or as clinically indicated. - Monitor dashboard for labs, drug interactions, and compliance. - rodent exterminator use of anticoagulants added to problem list. Time spent: 30 min Patient Education of Treatment plan: Patient's daughter indicates readiness to learn, verbalizes understanding, agreement and satisfaction with the treatment plan. Denies further questions. Anticoagulation Educational Assessment Part One Barriers/Special Needs No barriers identified Part Two Readiness to learn No barriers identified PARTICIPANTS: Patient's daughter Raine TEACHING STRATEGY: 1:1, Written/print materials Apixaban Content Reviewed: o Recognize medication by names (apixaban (Eliquis)) & proper tablet identification (on prescription bottle) o Indication, expected duration for therapy o Daily dosage, importance of medication adherence, management of missed/extra doses o Monitoring requirements, importance of compliance with follow-up lab monitoring requirements o Risks and benefits of therapy to include possible adverse reactions or medication failure and what to do if these occur; fall-associated risks & importance of seeking urgent care if falls occur o Interactions (drug, alcohol, and disease states) o Importance of informing your anticoagulation provider as soon as possible when major changes in medications/health occur, upcoming procedures are expected that require interruption, or for evidence of new bleeds or thromboses Patient received a written, detailed copy of the educational handout to include contact information for anticoagulation clinic and instructions for how to obtain supply of medication. PATIENT/FAMILY RESPONSE (OUTCOME): Verbalizes critical information and understanding about the topic FOLLOW-UP RECOMMENDED: None needed Time spent on education: 15 minutes /chadwick/ Jacob Draper PharmD, BCACP Clinical Service Restorer Emergency Signed: 06/03/2023 12:24 06/03/2023 ADDENDUM STATUS: COMPLETED With discussion of apixaban education today, daughter wanted to make sure that an updated medication list was sent over to [facility] with PCP signature in order to discontinue aspirin use and start apixaban use. It appears this was requested last week so just wanted to verify that this was taken care of. Thank you. /David BarthD, BCACP Clinical Service Restorer Emergency Signed: 06/03/2023 12:59 Receipt Acknowledged By: 06/03/2023 14:32 /chadwick/ ERINN FLANNERY RN REGISTERED NURSE 06/03/2023 ADDENDUM STATUS: COMPLETED This request was already completed. /corry FLANNERY RN REGISTERED NURSE Signed: 06/03/2023 14:32 JACOB DRAPER [facility]
--- OUTSIDE RECORDS SUMMARY | 2024-02-17 12:48 | XMS_ITS | Continuity of Care Document ---
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 It does not include entries that were removed or entered in error. Problem Status Onset Date Problem Type Date of Resolution Comments Source Benign prostatic hyperplasia Active Condition [facility] Depression (SCT [id number]) Active Condition [facility] Ex-smoker Active Condition [facility] Gastroesophageal reflux disease Active Condition May 24, 2023 Entered By: BRINA BIRMINGHAM Comment: Also known hiatal hernia [facility] Hypertension (SNOMED CT [id number]) Active Condition [facility] Long-Term Current Use of Anticoagulant (SCT 201856533) Active Condition [facility] Lumbosacral Radiculopathy (SCT 3860701) Active Condition May 24, 2023 Entered By: BRINA BIRMINGHAM Comment: At one point neurosurgery was planning for L2-S1 fusion with L3-5 laminectomies but this was cancelled 10/2021.May 24, 2023 Entered By: BRINA BIRMINGHAM Comment: Has had improvement with duloxetine and use of Rollator [facility] Mild cognitive impairment Active Condition [facility] Morbid obesity Active Condition [facility] Nocturia Active Condition May 24 Entered By: BRINA BIRMING[place]AM Comment: Has long history of this, and previously followed with urology, last seeing them 2022 Entered By: BRINA BIRMING[place]AM Comment: Prior UA has been normalMay 24, 2023 Entered By: BRINA BIRM[place] Comment: Suspect largely driven by BPH +/- MEGHA [facility] Obstructive sleep apnea syndrome Active Condition May 24, 2023 Entered By: BRINA BIRMING[place] Comment: Suspected by pulm 2022, watchPAT pending [facility] Osteoarthritis of hip Active Condition May 24, 2023 Entered By: BRINA BIRMING[place] Comment: was evaluated by ortho 09/2017 and deferred surgery given weight [facility] Paroxysmal Atrial Fibrillation (SCT 644323934) Active Condition May 24, 2023 Entered By: BRINA BIRMING[place]AM Comment: Dx 04/2023 following CVA 2022 Entered By: BRINA BIRM[place] Comment: Started apixaban 05/2023 [facility] Pulmonary hypertension Active Condition December 19, 2023 Entered By: BRINA BIRMING[place] Comment: Moderately increased estimated PAP by tricuspid regurgitation velocity and right atrial pressure (48 mmHg plus RAP) per [facility] 01/2023 [facility] Stroke Active Condition May 24 Entered By: BRINA BIRMING[place]AM Comment: 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 Entered By: BRINA BIRMING[place] Comment: W/u revealed atrial fibrillation [facility] Venous insufficiency of leg Active Condition December 18, 2023 Entered By: BRINA BIRMING[place]AM Comment: per 05/2023 [facility] Diagnosis: ICD-10-CM Z46.1 Encounter for fitting and adjustment of hearing aid Active Diagnosis [facility] Diagnosis: ICD-10-CM I10 Essential (primary) hypertension Active Diagnosis [facility] Diagnosis: ICD-10-CM Z79.01 nursing home (current) use of anticoagulants Active Diagnosis [facility] Diagnosis: ICD-10-CM Z01.118 Encntr for exam of ears and hearing w oth abnormal findings Active Diagnosis [facility] Diagnosis: ICD-10-CM Z71.9 Counseling, unspecified Active Diagnosis [facility] Diagnosis: ICD-10-CM Z13.6 Encounter for screening for cardiovascular disorders Active Diagnosis [facility] Diagnosis: ICD-10-CM I48.91 Unspecified atrial fibrillation Active Diagnosis [facility] Diagnosis: ICD-10-CM I48.0 Paroxysmal atrial fibrillation Active Diagnosis [facility] Diagnosis: ICD-10-CM I67.9 Cerebrovascular disease, unspecified Active Diagnosis [facility] Diagnosis: ICD-10-CM G47.33 Obstructive sleep apnea (adult) (pediatric) Active Diagnosis [facility] Diagnosis: ICD-10-CM R35.1 Nocturia Active Diagnosis [facility] Medications Combined list of outpatient medications from Department of Defense and Veterans Affairs facilities.Medications provided include 1) outpatient medications from the last 15 months, and 2) patient-reported medications. Medication Details Route Status Patient Instructions Prescription Expires Prescription Number Last Dispense Date Ordering Provider Order Date Order Qty Source ACETAMINOPH EN 500MG TAB ACETAMIN OPHEN 500MG TAB Active TAKE TWO TABLETS BY MOUTH TWICE A DAY AND TAKE TWO TABLETS EVERY DAY NEEDED FOR PAIN FOR PAIN Apr 03, 2023 600 Apr 03, 2024 [id number] November 20, 2023 [facility]/2024 [id number] BRINA BIRMINGHAM 2022 600 [facility] AMLODIPINE BESYLATE 5MG TAB AMLODIPI NE BESYLATE 5MG TAB Disconti nued TAKE ONE TABLET BY MOUTH EVERY DAY FOR BLOOD PRESSURE Apr 03, 2023 90 Apr 03, 2024 [id number] A Nov 09, 2023 BRINA BIRM[place] [facility] ORAL DISCONT INUED BY PROVIDE R 04/03/2024 [id number] BRINA BIRMINGHAM 2022 90 [facility] APIXABAN 5MG TAB APIXABAN 5MG TAB Active TAKE ONE TABLET BY MOUTH EVERY 12 HOURS TO PREVENT STROKES TO PREVENT STROKES Jun 03, 2023 60 Jun 03, 2024 [id number] A Jan 29, 2024 [place] ,JACOB L [facility] ORAL ACTIVE 06/03/2024 [id number] POE[place], JACOB L 2022 60 [facility] APIXABAN 5MG TAB APIXABAN 5MG TAB Disconti nued TAKE ONE TABLET BY MOUTH EVERY 12 HOURS TO PREVENT STROKES TO PREVENT STROKES May 24, 2023 60 Jun 23, 2023 [id number] May 24, 2023 BRINA BIRM[place] [facility] ORAL DISCONT INUED 06/23/2023 [id number] BRINA BIRMINGHAM 2022 60 [facility] ASPIRIN 81MG TAB,CHEWABL E ASPIRIN 81MG TAB,CHEW ABLE Disconti nued CHEW ONE TABLET BY MOUTH EVERY DAY TO PREVENT BLOOD CLOTS TO PREVENT BLOOD CLOTS Apr 03, 2023 108 Apr 03, 2024 [id number] Apr 04, 2023 BRINA BIR[place] [facility] ORAL DISCONT INUED 04/03/2024 [id number] BRINA BIRMINGHAM 2022 108 [place] [facility] BISACODYL 5MG TAB,EC BISACODY L 5MG TAB,EC TAKE TWO TABLETS BY MOUTH ONCE FOR COLON PREP FOR COLON PREP Dec 23, 2023 2 Jan 22, 2024 [id number] Dec 24, 2023 [facility]A [facility]ANCIA [facility] [place] [facility] 01/22/2024 [id number] JUAN FRANCISCO MANCIA H 2023 2 [facility] [place] [facility] CARBOXYMETH YLCELLULOSE NA 0.5% SOLN,OPH CARBOXYM ETHYLCEL LULOSE NA 0.5% SOLN,OPH Active INSTILL 1 DROP IN BOTH EYES FOUR TIMES A DAY NEEDED FOR DRY EYES FOR DRY EYES Apr 03, 2023 15 Apr 03, 2024 [id number] Apr 04, 2023 [place] [facility] OPHTHA LMIC ACTIVE 04/03/2024 [id number] BRINA BIRMINGHAM 2022 15 [facility] DULOXETINE HCL 60MG CAP,EC DULOXETI NE HCL 60MG CAP,EC Active TAKE ONE CAPSULE BY MOUTH EVERY DAY REPLAC ES CITALOPR AM PRESCRIP TION Apr 03, 2023 90 Apr 03, 2024 [id number] C Jan 29, 2024 [facility] [place] [facility] ORAL ACTIVE 04/03/2024 [id number] BRINA BIRMINGHAM 2022 90 [facility] DULOXETINE [facility] 60MG CAP,EC DULOXETI NE HCL 60MG CAP,EC Disconti nued TAKE ONE CAPSULE BY MOUTH EVERY DAY REPLAC ES CITALOPR AM PRESCRIP TION Nov 08, 2022 90 Nov 09, 2023 [id number] B Jan 11, 2023 [place] [facility] ORAL DISCONT INUED 11/09/2023 [id number] BRINA BIRMINGHAM 2022 90 [facility] FERROUS GLUCONATE 324MG TAB FERROUS GLUCONAT E 324MG TAB Active TAKE ONE TABLET BY MOUTH EVERY OTHER DAY FOR ANEMIA FOR ANEMIA December 19, 2023 100 December 19, 2024 [id number] December 20, 2023 [place] [facility] 12/19/2024 [id number] BRINA BIRMINGHAM 2023 100 [place] [facility] FINASTERIDE 5MG TAB FINASTER MARY 5MG TAB Active TAKE ONE TABLET BY MOUTH EVERY DAY FOR PROSTATE Apr 03, 2023 90 Apr 03, 2024 [id number] E Jan 16, 2024 BRINA [place] [facility]IVE 04/03/2024 [id number] BRINA BIRMING[place]AM 2022 90 [place] [facility] FINASTERIDE 5MG TAB FINASTER MARY 5MG TAB Disconti nued TAKE ONE TABLET BY MOUTH EVERY DAY FOR PROSTATE Nov 08, 2022 90 Nov 09, 2023 [id number] D Jan 11, 2023 BRINA [place] [facility] [place] [facility] ORAL DISCONT INUED 11/09/2023 [id number] BRINA BIRMINGHAM 2022 90 [place] [facility] HYDROCHLORO THIAZIDE 12.5MG TAB HYDROCHL OROTHIAZ MARY 12.5MG TAB Active TAKE ONE TABLET BY MOUTH EVERY DAY FOR BLOOD PRESSURE FOR BLOOD PRESSURE December 19, 2023 60 December 19, 2024 [id number] Feb 08, 2024 BR[facility] [place] [facility] 12/19/2024 [id number] BRINA BIRMINGHAM 2023 60 [place] [facility] LIDOCAINE 5% PATCH LIDOCAIN E 5% PATCH Active APPLY 1 PATCH TOPICALL Y EVERY DAY FOR UP TO 12 HOURS FOR PAIN FOR UP TO 12 HOURS FOR PAIN Jun 06, 2023 30 Jun 06, 2024 [id number] 2023 BRINA [place] [facility] TOPICA L ACTIVE 06/06/2024 [id number] BRINA BIRMINGHAM 2022 30 [place] [facility] LISINOPRIL 10MG TAB LISINOPR IL 10MG TAB Active: Susp TAKE ONE TABLET BY MOUTH EVERY DAY FOR BLOOD PRESSURE FOR BLOOD PRESSURE Jan 16, 2024 90 Jan 17, 2025 [id number] A Mar 19, 2024 BRINA [place] [facility] ORAL SUSPEND ED 01/17/2025 [id number] BRINA BIRMING[place]AM 2023 90 [place] [facility] LISINOPRIL 10MG TAB LISINOPR IL 10MG TAB Disconti nued TAKE ONE TABLET BY MOUTH EVERY DAY FOR BLOOD PRESSURE FOR BLOOD PRESSURE Apr 03, 2023 90 Apr 03, 2024 [id number] December 20, 2023 [place] [facility] ORAL DISCONT INUED 04/03/2024 [id number] BRINA BIRMING[place]AM 2022 90 [place] [facility] METOPROLOL TARTRATE 25MG TAB METOPROL OL TARTRATE 25MG TAB Active TAKE ONE TABLET BY MOUTH TWICE A DAY FOR BLOOD PRESSURE FOR BLOOD PRESSURE November 20, 2023 180 Feb 18, 2024 [id number] B Feb 03, 2024 DOROTEO R[place]RIGEZ [place] [facility] [facility] [place]IVE 02/18/2024 [id number] DOROTEO RODRIGEZ 2023 180 [place] [facility] METOPROLOL TARTRATE 25MG TAB METOPROL OL TARTRATE 25MG TAB Disconti nued TAKE ONE TABLET BY MOUTH TWICE A DAY FOR BLOOD PRESSURE FOR BLOOD PRESSURE Nov 13, 2023 180 Feb 12, 2024 [id number] A Nov 15, 2023 DOROTEO RODRIGE[place] [facility] [facility] ORAL DISCONT INUED 02/12/2024 [id number] DOROTEO RODRIGEZ 2023 180 [place] [facility] METOPROLOL TARTRATE 25MG TAB METOPROL OL TARTRATE 25MG TAB Disconti nued TAKE ONE TABLET BY MOUTH TWICE A DAY FOR BLOOD PRESSURE FOR BLOOD PRESSURE Jun 03, 2023 180 Sep 01, 2023 [id number] Jun 03, 2023 DOROTEO R[place]RIGE[facility] [place] [facility] [facility] ORAL DISCONT INUED 09/01/2023 [id number] DOROTEO RODRIGEZ 2022 180 [place] [facility] METOPROLOL TARTRATE 25MG TAB METOPROL OL TARTRATE 25MG TAB Disconti nued TAKE ONE TABLET BY MOUTH TWICE A DAY FOR CHEST PAIN FOR CHEST PAIN May 30, 2023 180 Aug 28, 2023 [id number] May 30, 2023 [facility] ORAL DISCONT INUED (EDIT) 08/28/2023 [id number] DOROTEO RODRIGEZ 2022 180 [facility] MIRABEGRON 25MG TAB,SA MIRABEGR ON 25MG TAB,SA Disconti nued TAKE ONE TABLET BY MOUTH EVERY DAY Nov 08, 2022 30 Nov 09, 2023 [id number] A Feb 27, 2023 BRINA B[place] [facility] ORAL DISCONT INUED 11/09/2023 [id number] BRINA BIRMINGHAM 2022 30 [facility] MULTIVIT/OP HTH AREDS2/LUTE IN/ZEAXANTH IN CAP/TAB MULTIVIT /OPHTH AREDS2/L UTEIN/ZE AXANTHIN CAP/TAB Active TAKE 1 CAP/TAB BY MOUTH TWICE A DAY FOR EYE HEALTH FOR EYE HEALTH Sep 20, 2023 240 Sep 20, 2024 [id number] Jan 22, 2024 BRINA BIR[place] [facility] ORAL ACTIVE 09/20/2024 [id number] BRINA BIRMINGHAM 2023 240 [facility] MUPIROCIN 2% OINT,TOP MUPIROCI N 2% OINT,TOP Disconti nued APPLY THIN LAYER TOPICALL Y TWICE A DAY FOR INFECTIO N FOR INFECTIO N Apr 04, 2023 22 Apr 04, 2024 [id number] Apr 05, 2023 BRINA B[place] [facility] TOPICA L DISCONT INUED 04/04/2024 [id number] BRINA BIRMINGHAM 2022 22 [facility] PANTOPRAZOL E NA 40MG TAB,EC PANTOPRA ZOLE NA 40MG TAB,EC Active TAKE ONE TABLET BY MOUTH EVERY EVENING TO DECREASE STOMACH ACID -TAKE ON AN EMPTY STOMACH, AT LEAST ONE-HALF HOUR BEFORE EATING Apr 03, 2023 90 Apr 03, 2024 [id number] I Feb 09, 2024 [place] [facility] 04/03/2024 [id number] BRINA B[place]AM 2022 90 [place] [facility] PANTOPRAZOL E NA 40MG TAB,EC PANTOPRA ZOLE NA 40MG TAB,EC Disconti nued TAKE ONE TABLET BY MOUTH EVERY EVENING TO DECREASE STOMACH ACID -TAKE ON AN EMPTY STOMACH, AT LEAST ONE-HALF HOUR BEFORE EATING Nov 08, 2022 90 Nov 09, 2023 [id number] H Jan 24, 2023 BRINA [place] ORAL DISCONT INUED 11/09/2023 [id number] BRINA B[place]AM 2022 90 [place] [facility] PEG-3350/EL ECTROLYTES PWDR PEG-3350 /ELECTRO LYTES PWDR TAKE ONE CONTAINE R BY MOUTH DIRECTED FOR COLON PREP FOR COLON PREP Dec 23, 2023 1 Jan 22, 2024 [id number] Dec 24, 2023 KIRA MANCIA H [place] [facility] ORAL 01/22/2024 [id number] JUAN FRANCISCO MANCIA ANA LUISA H 2023 1 [place] [facility] ROSUVASTATI N CA 20MG TAB ROSUVAST ATIN CA 20MG TAB Active: Susp TAKE ONE TABLET BY MOUTH EVERY DAY FOR CHOLESTE ROL FOR CHOLESTE ROL December 19, 2023 90 December 19, 2024 [id number] A Mar 19, 2024 RBINA [place] [facility] ORAL SUSPEND ED 12/19/2024 [id number] BRINA BIRM[place]AM 2023 90 [place] [facility] ROSUVASTATI N CA 20MG TAB ROSUVAST ATIN CA 20MG TAB Disconti nued TAKE ONE TABLET BY MOUTH EVERY DAY FOR CHOLESTE ROL FOR CHOLESTE ROL Apr 03, 2023 90 Apr 03, 2024 [id number] December 20, 2023 BRINA [place] [facility] ORAL DISCONT INUED 04/03/2024 [id number] BRINA B[place] 2022 90 [place] [facility] [facility] SENNOSIDES 8.6MG TAB SENNOSID ES 8.6MG TAB Active TAKE ONE TABLET BY MOUTH EVERY DAY AND TAKE ONE TABLET EVERY DAY NEEDED FOR CONSTIPA TION FOR CONSTIPA TION Apr 03, 2023 200 Apr 03, 2024 [id number] Jan 29, 2024 [facility] [place] [facility] 04/03/2024 [id number] BRINA BIRM[place]AM 2022 200 [facility] SODIUM CHLORIDE 0.9% (PF) INJ,SYRINGE ,10ML SODIUM CHLORIDE 0.9% (PF) INJ,SYRI NGE,10ML Disconti nued INJECT 10 ML TOPICALL Y DIRECTED FOR WOUND CLEANSIN G SKIN TEAR Apr 23, 2023 30 May 23, 2023 [id number] Apr 23, 2023 [facility] [place] [facility] TOPICA L DISCONT INUED 05/23/2023 [id number] BRINA B[place]AM 2022 30 [place] [facility] [facility] SODIUM CHLORIDE 0.9% (PF) INJ,SYRINGE ,10ML SODIUM CHLORIDE 0.9% (PF) INJ,SYRI NGE,10ML INJECT 10 ML TOPICALL Y DIRECTED FOR WOUND CLEANSIN G SKIN TEAR May 02, 2023 30 Jun 01, 2023 [id number] May 03, 2023 [facility] [place] [facility] TOPICA L 06/01/2023 [id number] BRINA BIRMINGHAM 2022 30 [facility] TAMSULOSIN HCL 0.4MG CAP TAMSULOS IN HCL 0.4MG CAP Active TAKE TWO CAPSULES BY MOUTH AT BEDTIME Apr 03, 2023 180 Apr 03, 2024 [id number] D Jan 16, 2024 [place] [facility] 04/03/2024 [id number] BRINA BIRMING[place]AM 2022 180 [facility] TAMSULOSIN HCL 0.4MG CAP TAMSULOS IN HCL 0.4MG CAP Disconti nued TAKE TWO CAPSULES BY MOUTH AT BEDTIME Nov 08, 2022 180 Nov 09, 2023 [id number] C Jan 11, 2023 BRINA B[place] [facility] ORAL DISCONT INUED 11/09/2023 [id number] BRINA BIRMINGHAM 2022 180 [facility] Allergies, Adverse Reactions, Alerts Combined list of allergies from Department of [facility] and [facility] facilities. It does not include entries that were removed or entered in error. Substance Category Reaction Severity Reaction type Status Date Reported Comments Source MORPHINE Propensity to adverse reactions to drug (finding) Disorient ated, Mood swings active 1 [facility] Immunizations Combined list of available immunizations from the Department of [facility] and [facility] facilities. Immunization Series Date Given Administered By Site Reaction Lot Number CVX Code Drug [id number] Programmer Analyst Status Comments Source INFLUENZA VACCINE, QUADRIVALENT, ADJUVANTED 2022 205 complet ed [facility] INFLUENZA, UNSPECIFIED FORMULATION 2022 88 complet ed [facility] TDAP 2022 CHETAN ALANIS [place] LEFT DELTO ID [id number] 115 complet ed [facility] COVID-19 (PFIZER), MRNA, LNP-S, BIVALENT, PF, 30 MCG/0.3 ML DOSE 2021 300 complet ed [facility] INFLUENZA VACCINE, QUADRIVALENT, ADJUVANTED 2021 205 complet ed [facility] COVID-19 (PFIZER), MRNA, LNP-S, PF, 30 MCG/0.3 ML DOSE, LUANA-SUCROSE (AGES 12+ YEARS) 2021 217 complet ed [facility] COVID-19 (PFIZER), MRNA, LNP-S, PF, 30 MCG/0.3 ML DOSE 2020 208 complet ed [facility] INFLUENZA, HIGH-DOSE, QUADRIVALENT 2020 197 complet ed [facility] COVID-19 (PFIZER), MRNA, LNP-S, PF, 30 MCG/0.3 ML DOSE 2 2020 208 complet ed PFR; [id number]; 1 [facility] COVID-19 (HeySpace), MRNA, LNP-S, PF, 30 MCG/0.3 ML DOSE 1 2020 208 complet ed PFR; [id number]; 1 [facility] INFLUENZA, RECOMBINANT, QUADRIVALENT, INJECTABLE, PRESERVATIVE FREE 2019 185 complet ed [facility] INFLUENZA, UNSPECIFIED FORMULATION 2019 88 complet ed [facility] INFLUENZA, RECOMBINANT, QUADRIVALENT, INJECTABLE, PRESERVATIVE FREE 2018 185 complet ed [facility] INFLUENZA, HIGH DOSE SEASONAL 2018 135 complet ed [facility] ZOSTER RECOMBINANT 2 2018 187 complet ed [facility] ZOSTER RECOMBINANT 1 2018 187 complet ed [facility] INFLUENZA, TRIVALENT, ADJUVANTED 2017 168 complet ed [facility] INFLUENZA, SEASONAL, INJECTABLE 2017 141 complet ed [facility] INFLUENZA, HIGH DOSE SEASONAL 2016 135 complet ed [facility] PNEUMOCOCCAL CONJUGATE PCV 13 2016 133 complet ed [facility] INFLUENZA, HIGH DOSE SEASONAL 2016 135 complet ed [facility] INFLUENZA, HIGH DOSE SEASONAL 2015 135 complet ed [facility] INFLUENZA, SEASONAL, INJECTABLE 2015 141 complet ed [facility] INFLUENZA, SEASONAL, INJECTABLE 2014 141 complet ed [facility] PNEUMOCOCCAL CONJUGATE PCV 13 2014 133 complet ed [id number]/ [facility] INFLUENZA, SEASONAL, INJECTABLE 2013 141 complet ed [facility] INFLUENZA, UNSPECIFIED FORMULATION 2012 88 complet ed [facility] TDAP 2012 115 complet ed glaxosmit hkline;ac [id number]; 5 [facility] INFLUENZA, UNSPECIFIED FORMULATION 2011 88 complet ed [facility] INFLUENZA, SEASONAL, INJECTABLE 2011 141 complet ed [facility] ZOSTER LIVE 2011 121 complet ed 000 [facility] INFLUENZA, UNSPECIFIED FORMULATION 2010 88 complet ed per pt [facility] INFLUENZA, SEASONAL, INJECTABLE, PRESERVATIVE FREE 2009 140 complet ed [facility] INFLUENZA, SEASONAL, INJECTABLE, PRESERVATIVE FREE 2009 140 complet ed [facility] INFLUENZA, UNSPECIFIED FORMULATION 2009 88 complet ed [facility] NOVEL INFLUENZA-H1N 1-09, ALL FORMULATIONS 2009 128 complet ed [employer] [facility] INFLUENZA, UNSPECIFIED FORMULATION 2008 88 complet ed [facility] INFLUENZA, UNSPECIFIED FORMULATION 2007 88 complet ed [facility] INFLUENZA (HISTORICAL) 2006 88 complet ed [facility] INFLUENZA, SEASONAL, INJECTABLE 2005 141 complet ed [facility] INFLUENZA (HISTORICAL) 2005 88 complet ed [facility] PNEUMOCOCCAL, UNSPECIFIED FORMULATION 2005 109 complet ed [facility] INFLUENZA, UNSPECIFIED FORMULATION 2004 88 complet ed [facility] INFLUENZA, UNSPECIFIED FORMULATION 2003 88 complet ed [facility] TD(ADULT) UNSPECIFIED FORMULATION 2002 139 complet ed [facility] INFLUENZA, SEASONAL, INJECTABLE 2002 141 complet ed [facility] PNEUMOCOCCAL POLYSACCHARID E PPV23 2002 33 complet ed [facility] INFLUENZA (HISTORICAL) 2002 88 complet ed pt states he had a Influenza vaccinati on in 2002 [facility] TD (ADULT), 2 LF TETANUS TOXOID, PRESERVATIVE FREE, ADSORBED 2002 09 complet ed [facility] Results Combined list of recent chemistry, hematology and other laboratory results from Department of Defense and Veterans Affairs, ranging from 15 months to all on record, depending upon the facility. Order Name Results Value Reference Range Date Interpretation Specimen Comments Source BASIC METABOLIC PANEL+MG CREATININE [MASS/VOLUM E] IN SERUM OR PLASMA 0.8 mg/dL 0.7 - 1.2 01/05 Specimen Type: PLASMA No comment entered. Ordering Provider: BRINA BIRMINGHAM Report Released Date/Time: December 19, 2023 12:41 PM Reporting Lab: [facility] [phone] Performing Lab: [facility] [phone] [place] [facility] BASIC METABOLIC PANEL+MG UREA NITROGEN [MASS/VOLUM E] IN SERUM OR PLASMA 13 mg/dL 8 - 26 01/05 Specimen Type: PLASMA No comment entered. Ordering Provider: BRINA BIRMINGHAM Report Released Date/Time: December 19, 2023 12:41 PM Reporting Lab: [facility] [phone] Performing Lab: [facility] [phone] [place] [facility] BASIC METABOLIC PANEL+MG GLUCOSE [MASS/VOLUM E] IN SERUM OR PLASMA 95 mg/dL 70 - 100 01/05 Specimen Type: PLASMA No comment entered. Ordering Provider: BRINA BIRMINGHAM Report Released Date/Time: December 19, 2023 12:41 PM Reporting Lab: [facility] [phone] Performing Lab: [facility] [phone] [place] [facility] BASIC METABOLIC PANEL+MG SODIUM [MOLES/VOLU ME] IN SERUM OR PLASMA 141 mmol/L 136 - 145 01/05 Specimen Type: PLASMA No comment entered. Ordering Provider: BRINA BIRMINGHAM Report Released Date/Time: December 19, 2023 12:41 PM Reporting Lab: [facility] [phone] Performing Lab: [facility] [phone] [place] [facility] BASIC METABOLIC PANEL+MG POTASSIUM [MOLES/VOLU ME] IN SERUM OR PLASMA 3.8 mmol/L 3.5 - 5.1 01/05 Specimen Type: PLASMA No comment entered. Ordering Provider: BRINA BIRMINGHAM Report Released Date/Time: December 19, 2023 12:41 PM Reporting Lab: [facility] [phone] Performing Lab: [facility] [id number] [place] [facility] BASIC METABOLIC PANEL+MG CHLORIDE [MOLES/VOLU ME] IN SERUM OR PLASMA 107 mmol/L 98 - 107 01/05 Specimen Type: PLASMA No comment entered. Ordering Provider: BRINA BIRMINGHAM Report Released Date/Time: December 19, 2023 12:41 PM Reporting Lab: [facility] [id number] Performing Lab: [facility] [id number] [place] [facility] BASIC METABOLIC PANEL+MG CARBON DIOXIDE, TOTAL [MOLES/VOLU ME] IN SERUM OR PLASMA 26 mmol/L 22 - 29 01/05 Specimen Type: PLASMA No comment entered. Ordering Provider: BRINA BIRMINGHAM Report Released Date/Time: December 19, 2023 12:41 PM Reporting Lab: [facility] [id number] Performing Lab: [facility] [id number] [place] [facility] BASIC METABOLIC PANEL+MG CALCIUM [MASS/VOLUM E] IN SERUM OR PLASMA 9.5 mg/dL 8.4 - 10.2 01/05 Specimen Type: PLASMA No comment entered. Ordering Provider: BRINA BIRMINGHAM Report Released Date/Time: December 19, 2023 12:41 PM Reporting Lab: [facility] [id number] Performing Lab: [facility] [id number] [place] [facility]+MG MAGNESIUM [MASS/VOLUM E] IN SERUM OR PLASMA 2.0 mg/dL 1.6 - 2.6 01/05 Specimen Type: PLASMA No comment entered. Ordering Provider: BRINA BIRMINGHAM Report Released Date/Time: December 19, 2023 12:41 PM Reporting Lab: [facility] [address] Performing Lab: [facility] [address] [place] [facility] BASIC METABOLIC PANEL+MG ANION GAP IN SERUM OR PLASMA 8 mmol/L 5 - 15 01/05 Specimen Type: PLASMA No comment entered. Ordering Provider: BRINA BIRMINGHAM Report Released Date/Time: December 19, 2023 12:41 PM Reporting Lab: [facility] [address] Performing Lab: [facility] [address] [place] [facility] BASIC METABOLIC PANEL+MG GLOMERULAR FILTRATION RATE/1.73 SQ M.PREDICTED [VOLUME RATE/AREA] IN SERUM, PLASMA OR BLOOD BY CREATININE- BASED FORMULA (CKD-EPI 2020) 88 60 01/05 Specimen Type: PLASMA No comment entered. Ordering Provider: BRINA BIRMINGHAM Report Released Date/Time: December 19, 2023 12:41 PM Reporting Lab: [facility] [address] Performing Lab: [facility] [address] [place] [facility] B 12 COBALAMIN (VITAMIN B12) [MASS/VOLUM E] IN SERUM OR PLASMA 304 pg/mL 213 - 816 12/18 Specimen Type: SERUM No comment entered. Ordering Provider: BRINA BIRMINGHAM Report Released Date/Time: December 18, 2023 02:26 PM Reporting Lab: [facility] [address] Performing Lab: [facility] [address] [place] [facility] FOLATE FOLATE [MASS/VOLUM E] IN SERUM OR PLASMA 8.3 ng/mL 7.0 12/18 Specimen Type: SERUM No comment entered. Ordering Provider: BRINA BIRMINGHAM Report Released Date/Time: December 18, 2023 02:26 PM Reporting Lab: [facility] [address] Performing Lab: [facility] [address] [place] [facility] LIPID PANEL,NON -FASTING CHOLESTEROL [MASS/VOLUM E] IN SERUM OR PLASMA 109 mg/dL <199 - 199 12/18 Specimen Type: PLASMA No comment entered. Ordering Provider: BRINA BIRMINGHAM Report Released Date/Time: December 18, 2023 02:26 PM Reporting Lab: [facility] [address] Performing Lab: [facility] [address] [place] [facility] LIPID PANEL,NON -FASTING CHOLESTEROL IN HDL [MASS/VOLUM E] IN SERUM OR PLASMA 43 mg/dL 40 12/18 Specimen Type: PLASMA No comment entered. Ordering Provider: BRINA BIRMINGHAM Report Released Date/Time: December 18, 2023 02:26 PM Reporting Lab: [facility] [address] Performing Lab: [facility] [address] [place] [facility] LIPID PANEL,NON -FASTING CHOLESTEROL IN LDL [MASS/VOLUM E] IN SERUM OR PLASMA BY CALCULATION 45 mg/dL <99 - 99 12/18 Specimen Type: PLASMA No comment entered. Ordering Provider: BRINA BIRMINGHAM Report Released Date/Time: December 18, 2023 02:26 PM Reporting Lab: [facility] [address] Performing Lab: [facility] [address] [place] [facility] LIPID PANEL,NON -FASTING CHOLESTEROL IN VLDL [MASS/VOLUM E] IN SERUM OR PLASMA BY CALCULATION 21 mg/dL <29 - 29 12/18 Specimen Type: PLASMA No comment entered. Ordering Provider: BRINA BIRMINGHAM Report Released Date/Time: December 18, 2023 02:26 PM Reporting Lab: [facility] [address] Performing Lab: [facility] [address] [place] [facility] LIPID PANEL,NON -FASTING CHOLESTEROL NON HDL [MASS/VOLUM E] IN SERUM OR PLASMA 66 mg/dL <129 - 129 12/18 Specimen Type: PLASMA No comment entered. Ordering Provider: BRINA BIRMINGHAM Report Released Date/Time: December 18, 2023 02:26 PM Reporting Lab: [facility] [address] Performing Lab: [facility] [address] [place] [facility] LIPID PANEL,NON -FASTING TRIGLYCERID E [MASS/VOLUM E] IN SERUM OR PLASMA 107 mg/dL <149 - 149 12/18 Specimen Type: PLASMA No comment entered. Ordering Provider: BRINA BIRMINGHAM Report Released Date/Time: December 18, 2023 02:26 PM Reporting Lab: [facility] [address] Performing Lab: [facility] [address] [place] [facility] CBC LEUKOCYTES [#/VOLUME] IN BLOOD BY AUTOMATED COUNT 6.74 10*3/u L 4.0 - 11.0 12/18 Specimen Type: BLOOD No comment entered. Ordering Provider: BRINA BIRMINGHAM Report Released Date/Time: December 18, 2023 02:26 PM Reporting Lab: [facility] [address] Performing Lab: [facility] [address] [place] [facility] CBC ERYTHROCYTE S [#/VOLUME] IN BLOOD BY AUTOMATED COUNT 4.45 10*6/u L 4.6 - 6.2 12/18 L Specimen Type: BLOOD No comment entered. Ordering Provider: BRINA BIRMINGHAM Report Released Date/Time: December 18, 2023 02:26 PM Reporting Lab: [facility] [address] Performing Lab: [facility] [address] [place] [facility] CBC HEMOGLOBIN [MASS/VOLUM E] IN BLOOD 11.6 g/dL 13.5 - 17.9 12/18 L Specimen Type: BLOOD No comment entered. Ordering Provider: BRINA BIRMINGHAM Report Released Date/Time: December 18, 2023 02:26 PM Reporting Lab: [facility] [address] Performing Lab: [facility] [address] [place] [facility] CBC HEMATOCRIT [VOLUME FRACTION] OF BLOOD BY AUTOMATED COUNT 36.7 41 - 54 12/18 L Specimen Type: BLOOD No comment entered. Ordering Provider: BRINA BIRMINGHAM Report Released Date/Time: December 18, 2023 02:26 PM Reporting Lab: [facility] [address] Performing Lab: [facility] [address] [place] [facility] CBC MCV [ENTITIC VOLUME] BY AUTOMATED COUNT 82.5 fL 80 - 100 12/18 Specimen Type: BLOOD No comment entered. Ordering Provider: BRINA BIRMINGHAM Report Released Date/Time: December 18, 2023 02:26 PM Reporting Lab: [facility] [address] Performing Lab: [facility] [address] [place] [facility] CBC MCH [ENTITIC MASS] BY AUTOMATED COUNT 26.1 pg 27 - 33 12/18 L Specimen Type: BLOOD No comment entered. Ordering Provider: BRINA BIRMINGHAM Report Released Date/Time: December 18, 2023 02:26 PM Reporting Lab: [facility] [address] Performing Lab: [facility] [address] [place] [facility] CBC MCHC [MASS/VOLUM E] BY AUTOMATED COUNT 31.6 g/dL 32.0 - 37.5 12/18 L Specimen Type: BLOOD No comment entered. Ordering Provider: BRINA BIRMINGHAM Report Released Date/Time: December 18, 2023 02:26 PM Reporting Lab: [facility] [address] Performing Lab: [facility] [address] [place] [facility] CBC PLATELETS [#/VOLUME] IN BLOOD BY AUTOMATED COUNT 188 10*3/u L 150 - 400 12/18 Specimen Type: BLOOD No comment entered. Ordering Provider: BRINA BIRMINGHAM Report Released Date/Time: December 18, 2023 02:26 PM Reporting Lab: [facility] [address] Performing Lab: [facility] [address] [place] [facility] CBC PLATELET MEAN VOLUME [ENTITIC VOLUME] IN BLOOD BY AUTOMATED COUNT 11.1 fL 7.4 - 10.4 12/18 H Specimen Type: BLOOD No comment entered. Ordering Provider: BRINA BIRMINGHAM Report Released Date/Time: December 18, 2023 02:26 PM Reporting Lab: [facility] [address] Performing Lab: [facility] [address] [place] [facility] CBC ERYTHROCYTE DISTRIBUTIO N WIDTH [RATIO] BY AUTOMATED COUNT 13.4 11.5 - 14.5 12/18 Specimen Type: BLOOD No comment entered. Ordering Provider: BRINA BIRMINGHAM Report Released Date/Time: December 18, 2023 02:26 PM Reporting Lab: [facility] [address] Performing Lab: [facility] [address] [place] [facility] COMPREHEN SIVE METABOLIC PANEL+MG CREATININE [MASS/VOLUM E] IN SERUM OR PLASMA 0.8 mg/dL 0.7 - 1.2 12/18 Specimen Type: PLASMA No comment entered. Ordering Provider: BRINA BIRMINGHAM Report Released Date/Time: December 18, 2023 02:26 PM Reporting Lab: [facility] [address] Performing Lab: [facility] [address] [place] [facility] COMPREHEN SIVE METABOLIC PANEL+MG UREA NITROGEN [MASS/VOLUM E] IN SERUM OR PLASMA 11 mg/dL 8 - 26 12/18 Specimen Type: PLASMA No comment entered. Ordering Provider: BRINA BIRMINGHAM Report Released Date/Time: December 18, 2023 02:26 PM Reporting Lab: [facility] [address] Performing Lab: [facility] [address] [place] [facility] COMPREHEN SIVE METABOLIC PANEL+MG GLUCOSE [MASS/VOLUM E] IN SERUM OR PLASMA 82 mg/dL 70 - 100 12/18 Specimen Type: PLASMA No comment entered. Ordering Provider: BRINA BIRMINGHAM Report Released Date/Time: December 18, 2023 02:26 PM Reporting Lab: [facility] [address] Performing Lab: [facility] [address] [place] [facility] COMPREHEN SIVE METABOLIC PANEL+MG SODIUM [MOLES/VOLU ME] IN SERUM OR PLASMA 144 mmol/L 136 - 145 12/18 Specimen Type: PLASMA No comment entered. Ordering Provider: BRINA BIRMINGHAM Report Released Date/Time: December 18, 2023 02:26 PM Reporting Lab: [facility] [address] Performing Lab: [facility] [address] [place] [facility] COMPREHEN SIVE METABOLIC PANEL+MG POTASSIUM [MOLES/VOLU ME] IN SERUM OR PLASMA 4.4 mmol/L 3.5 - 5.1 12/18 Specimen Type: PLASMA No comment entered. Ordering Provider: BRINA BIRMINGHAM Report Released Date/Time: December 18, 2023 02:26 PM Reporting Lab: [facility] [address] Performing Lab: [facility] [address] [place] [facility] COMPREHEN SIVE METABOLIC PANEL+MG CHLORIDE [MOLES/VOLU ME] IN SERUM OR PLASMA 109 mmol/L 98 - 107 12/18 H Specimen Type: PLASMA No comment entered. Ordering Provider: BRINA BIRMINGHAM Report Released Date/Time: December 18, 2023 02:26 PM Reporting Lab: [facility] [address] Performing Lab: [facility] [address] [place] [facility] COMPREHEN SIVE METABOLIC PANEL+MG CARBON DIOXIDE, TOTAL [MOLES/VOLU ME] IN SERUM OR PLASMA 26 mmol/L - 12/18 Specimen Type: PLASMA No comment entered. Ordering Provider: BRINA BIRMINGHAM Report Released Date/Time: December 18, 2023 02:26 PM Reporting Lab: [facility] [address] Performing Lab: [facility] [address] [place] [facility] COMPREHEN SIVE METABOLIC PANEL+MG CALCIUM [MASS/VOLUM E] IN SERUM OR PLASMA 9.5 mg/dL 8.4 - 10.2 12/18 Specimen Type: PLASMA No comment entered. Ordering Provider: BRINA BIRMINGHAM Report Released Date/Time: December 18, 2023 02:26 PM Reporting Lab: [facility] [address] Performing Lab: [facility] [address] [place] [facility] COMPREHEN SIVE METABOLIC PANEL+MG PROTEIN [MASS/VOLUM E] IN SERUM OR PLASMA 7.0 g/dL 6.0 - 8.3 12/18 Specimen Type: PLASMA No comment entered. Ordering Provider: BRINA BIRMINGHAM Report Released Date/Time: December 18, 2023 02:26 PM Reporting Lab: [facility] [address] Performing Lab: [facility] [address] [place] [facility] COMPREHEN SIVE METABOLIC PANEL+MG ALBUMIN [MASS/VOLUM E] IN SERUM OR PLASMA 3.9 g/dL 3.5 - 5.2 12/18 Specimen Type: PLASMA No comment entered. Ordering Provider: BRINA BIRMINGHAM Report Released Date/Time: December 18, 2023 02:26 PM Reporting Lab: [facility] [address] Performing Lab: [facility] [address] [place] [facility] COMPREHEN SIVE METABOLIC PANEL+MG BILIRUBIN.T OTAL [MASS/VOLUM E] IN SERUM OR PLASMA 0.5 mg/dL 0.2 - 1.2 12/18 Specimen Type: PLASMA No comment entered. Ordering Provider: BRINA BIRMINGHAM Report Released Date/Time: December 18, 2023 02:26 PM Reporting Lab: [facility] [address] Performing Lab: [facility] [address] [place] [facility] COMPREHEN SIVE METABOLIC PANEL+MG MAGNESIUM [MASS/VOLUM E] IN SERUM OR PLASMA 2.1 mg/dL 1.6 - 2.6 12/18 Specimen Type: PLASMA No comment entered. Ordering Provider: BRINA BIRMINGHAM Report Released Date/Time: December 18, 2023 02:26 PM Reporting Lab: [facility] [address] Performing Lab: [facility] [address] [place] [facility] COMPREHEN SIVE METABOLIC PANEL+MG ANION GAP IN SERUM OR PLASMA 9 mmol/L 5 - 15 12/18 Specimen Type: PLASMA No comment entered. Ordering Provider: BRINA BIRMINGHAM Report Released Date/Time: December 18, 2023 02:26 PM Reporting Lab: [facility] [address] Performing Lab: [facility] [address] [place] [facility] COMPREHEN SIVE METABOLIC PANEL+MG ALKALINE PHOSPHATASE [ENZYMATIC ACTIVITY/VO LUME] IN SERUM OR PLASMA 35 U/L 40 - 150 12/18 L Specimen Type: PLASMA No comment entered. Ordering Provider: BRINA BIRMINGHAM Report Released Date/Time: December 18, 2023 02:26 PM Reporting Lab: [facility] [address] Performing Lab: [facility] [address] [place] [facility] COMPREHEN SIVE METABOLIC PANEL+MG ALANINE AMINOTRANSF ERASE [ENZYMATIC ACTIVITY/VO LUME] IN SERUM OR PLASMA 11 U/L <55 - 55 12/18 Specimen Type: PLASMA No comment entered. Ordering Provider: BRINA BIRMINGHAM Report Released Date/Time: December 18, 2023 02:26 PM Reporting Lab: [facility] [address] Performing Lab: [facility] [address] [place] [facility] COMPREHEN SIVE METABOLIC PANEL+MG ASPARTATE AMINOTRANSF ERASE [ENZYMATIC ACTIVITY/VO LUME] IN SERUM OR PLASMA 22 U/L <34 - 34 12/18 Specimen Type: PLASMA No comment entered. Ordering Provider: BRINA BIRMINGHAM Report Released Date/Time: December 18, 2023 02:26 PM Reporting Lab: [facility] [address] Performing Lab: [facility] [address] [place] [facility] COMPREHEN SIVE METABOLIC PANEL+MG GLOMERULAR FILTRATION RATE/1.73 SQ M.PREDICTED [VOLUME RATE/AREA] IN SERUM, PLASMA OR BLOOD BY CREATININE- BASED FORMULA (CKD-EPI 2020) 88 60 12/18 Specimen Type: PLASMA No comment entered. Ordering Provider: BRINA BIRMINGHAM Report Released Date/Time: December 18, 2023 02:26 PM Reporting Lab: [facility] [address] Performing Lab: [facility] [address] [place] [facility] IRON GROUP IRON [MASS/VOLUM E] IN SERUM OR PLASMA 34 ug/dL 65 - 175 12/18 L Specimen Type: SERUM No comment entered. Ordering Provider: BRINA BIRMINGHAM Report Released Date/Time: December 19, 2023 12:41 PM Reporting Lab: [facility] [address] Performing Lab: [facility] [address] [place] [facility] IRON GROUP IRON BINDING CAPACITY [MASS/VOLUM E] IN SERUM OR PLASMA 364 ug/dL 250 - 425 12/18 Specimen Type: SERUM No comment entered. Ordering Provider: BRINA BIRMINGHAM Report Released Date/Time: December 19, 2023 12:41 PM Reporting Lab: [facility] [address] Performing Lab: [facility] [address] [place] [facility] IRON GROUP FERRITIN [MASS/VOLUM E] IN SERUM OR PLASMA 11.9 ng/mL 21.8 - 274.7 12/18 L Specimen Type: SERUM No comment entered. Ordering Provider: BRINA BIRMINGHAM Report Released Date/Time: December 19, 2023 12:41 PM Reporting Lab: [facility] [address] Performing Lab: [facility] [address] [place] [facility] IRON GROUP IRON SATURATION 9 20 - 50 12/18 L Specimen Type: SERUM No comment entered. Ordering Provider: BRINA BIRMINGHAM Report Released Date/Time: December 19, 2023 12:41 PM Reporting Lab: [facility] [address] Performing Lab: [facility] [address] [place] [facility] IRON GROUP TRANSFERRIN [MASS/VOLUM E] IN SERUM OR PLASMA 291 mg/dL 163 - 382 12/18 Specimen Type: SERUM No comment entered. Ordering Provider: BRINA BIRMINGHAM Report Released Date/Time: December 19, 2023 12:41 PM Reporting Lab: [facility] [address] Performing Lab: [facility] [address] [place] [facility] UREA NITROGEN UREA NITROGEN [MASS/VOLUM E] IN SERUM OR PLASMA 11 mg/dL 8 - 26 05/30 Specimen Type: PLASMA No comment entered. Ordering Provider: CRISTIANE DASILVA Report Released Date/Time: May 28, 2023 09:36 AM Reporting Lab: [facility] [address] Performing Lab: [facility] [address] [place] [facility] BNP NATRIURETIC PEPTIDE B [MASS/VOLUM E] IN SERUM OR PLASMA 108 pg/mL <99 - 99 05/30 H Specimen Type: PLASMA No comment entered. Ordering Provider: CRISTIANE DASILVA Report Released Date/Time: May 28, 2023 09:36 AM Reporting Lab: [facility] [address] Performing Lab: [facility] [address] [place] [facility] CREATININ E(INCLUDE S EGFR) CREATININE [MASS/VOLUM E] IN SERUM OR PLASMA 0.8 mg/dL 0.7 - 1.2 05/30 Specimen Type: PLASMA No comment entered. Ordering Provider: CRISTIANE DASILVA Report Released Date/Time: May 28, 2023 09:36 AM Reporting Lab: [facility] [address] Performing Lab: [facility] [address] [facility] CREATININ E(INCLUDE S EGFR) GLOMERULAR FILTRATION RATE/1.73 SQ M.PREDICTED [VOLUME RATE/AREA] IN SERUM, PLASMA OR BLOOD BY CREATININE- BASED FORMULA (CKD-EPI 2020) 88 60 05/30 Specimen Type: PLASMA No comment entered. Ordering Provider: CRISTIANE DASILVA Report Released Date/Time: May 28, 2023 09:36 AM Reporting Lab: [facility] [address] Performing Lab: [facility] [address] [facility] Vital Signs Combined list of inpatient and outpatient Vital Signs from Department of Defense and Veterans Affairs, ranging from 12 months to all on record, depending upon the facility. Vital Sign Value Date Comments Source Encounters Combined list of: 1) Encounters from Department of Veterans Affairs facilities going back up to thelast 18 months. 2) Encounters from the Department of Defense facilities going back up to 280 months. Location Location Details Encounter Type Encounter Number Reason For Visit Attending Provider ADM Date DC Date Status Disposition Source [facility] Outpatient Encounter [id number] 08/22 [facility] Outpatient Encounter [id number] 09/05 [facility] Outpatient Encounter [id number] 09/19 [facility] OFFICE O/P EST HI 40-54 MIN [id number] Diagnos is: ICD-10- CM R35.1 Nocturi a
VINNIE,BRINA B 11/08 [facility] OFF/OP CNSLTJ NEW/EST MOD 40 [id number] Diagnos is: ICD-10- CM G47.33 Obstruc tive sleep apnea (adult) (pediat armando)
Pita ANGEL 12/27 [facility] Outpatient Encounter [id number] 12/27 [place] [place] [facility] En[place] [id number] DAVID HANSEN 02/15 [facility] [place] [facility] Outpatient Encounter [id number] DAVID HANSEN M 02/20 [place] [facility] En[place] [id number] 02/25 [place] [place] [facility] Outpatient Encounter [id number] BERTRANDSHERI M 03/13 [place] [facility] [place] [facility] Outpatient Encounter [id number] 03/18 [place] [facility] [place] [facility] Outpatient Encounter [id number] 03/20 [place] [facility] [place] [facility] Outpatient Encounter [id number] 03/28 [place] [facility] [place] [facility] Outpatient Encounter [id number] 04/01 [place] [facility] [place] [facility] Outpatient Encounter [id number] 04/04 [place] [facility] [place] [facility] Outpatient Encounter [id number] VIRIDIANA DUPREE 04/11 [place] [facility] [place] [facility] Outpatient Encounter [id number] 04/17 [place] [facility] [place] [facility] Outpatient Encounter [id number] 04/17 [facility] [place] [facility] OFFICE O/P EST HI 40-54 MIN [id number] Diagnos is: ICD-10- CM I67.9 Cerebro vascula r disease , unspeci fied
BRINA BIRMINGHAM 04/23 [place] [facility] [place] [facility] Outpatient Encounter [id number] 04/23 [facility] [place] [facility] Outpatient Encounter [id number] 04/30 [facility] OFF/OP CONSLTJ NEW/EST HI 55 [id number] Diagnos is: ICD-10- CM I67.9 Cerebro vascula r disease , unspeci fied
REDDY MACKENZIE 05/14 [facility] Outpatient Encounter [id number] 05/15 [facility] EXT ECG>7D<15D REV&INTERP J [id number] Diagnos is: ICD-10- CM I48.0 Paroxys mal atrial fibrill ation<b r/> HAMLET WILL A 05/20 [facility] Outpatient Encounter [id number] Diagnos is: ICD-10- CM I48.91 Unspeci fied atrial fibrill ation<b r/> BRINA BIRMINGHAM B 05/24 [facility] Outpatient Encounter [id number] 05/27 [facility] Outpatient Encounter [id number] 05/29 [facility] ELECTROCAR DIOGRAM COMPLETE [id number] Diagnos is: ICD-10- CM Z13.6 Encount er for screeni ng for cardiov ascular disorde rs
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
Tate GUTIERREZ L 06/03 [place] [facility] [place] [facility] Outpatient Encounter [id number] 06/03 [place] [facility] [place] [facility] Out[place] Encounter [id number] 06/04 [place] [facility] [place] [facility] Out[place] Encounter [id number] DAVID HANSEN 06/04 [place] [facility] [place] [facility] Outpatient Encounter [id number] DAVID HANSEN 06/05 [place] [facility] [place] [facility] PRO PHONE CALL 11-20 MIN [id number] Diagnos is: ICD-10- CM Z71.9 Taxicab Coordinator ing, unspeci fied
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
JACOBO GREGG 07/04 [place] [facility] [place] [facility] QNHP OL DIG ASSMT&MGMT 11-20 [id number] Diagnos is: ICD-10- CM Z79.01 nursing home (curren t) use of anticoa gulants
JACOBO GREGG 07/04 [place] [facility] [place] [facility] Outpatient Encounter [id number] 07/08 [place] [facility] [place] [facility] Outpatient Encounter [id number] 07/26 [place] [facility] [place] [facility] Outpatient Encounter [id number] 07/26 [place] [facility] [place] [facility] Outpatient Encounter [id number] 08/12 [place] [facility] [place] [facility] Outpatient Encounter [id number] 09/05 [place] [facility] [place] [facility] Out[facility] Encounter [id number] C[facility] KEITH [facility]11 [facility] [place] [facility] HC PRO PHONE CALL 5-10 MIN [id number] Diagnos is: ICD-10- CM Z71.9 Taxicab Coordinator ing, unspeci fied
BRIAN [place] 09[facility]13 [facility] [place] [facility] Outpatient Encounter [id number] GABRIEL CHAUHAN 09/18 [place] [facility] [place] [facility] Outpatient Encounter [id number] 10/14 [place] [facility] [place] [facility] Outpatient Encounter [id number] 10/16 [place] [facility] [place] [facility] Outpatient [facility]counter [id number] 10/20 [place] [facility] [place] [facility] Outpatient Encounter [id number] 12/16 [place] [facility] [place] [facility] Outpatient Encounter [id number] 12/18 [facility] [place] [facility] OFFICE O/P EST MOD 30 MIN [id number] Diagnos is: ICD-10- CM I10 Essenti al (primar y) hyperte nsion<b r/> BRINA [place]INGHAM 12/18 [place] [facility] [place] [facility] HEARING AID REPAIR/MOD IFYING [id number] Diagnos is: ICD-10- CM Z01.118 Encntr for exam of ears and hearing w oth abnorma l finding s
ANICETOMaryanne MARIA CNORAJASPAL TRINH Pita 12/18 [place] [facility] [place] [facility] Outpatient Encounter [id number] 12/18 [place] [facility] [place] [facility] QNHP OL DIG ASSMT&MGMT 11-20 [id number] Diagnos is: ICD-10- CM Z79.01 nursing home (curren t) use of anticoa gulants
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
JUAN RAMON CRABTREE 12/22 [place] [facility] [place] [facility] Outpatient Encounter [id number] 12/29 [place] [facility] [place] [facility] Outpatient Encounter [id number] 01/01 [place] [facility] [place] [facility] HC PRO PHONE CALL 11-20 MIN [id number] Diagnos is: ICD-10- CM I10 Essenti al (primar y) hyperte nsion<b r/> BRINA B[place]INGHAM 01/06 [place] [facility] [place] [facility] Outpatient Encounter [id number] BRINA B[place]ING[place]AM 01/23 [place] [facility] [place] [facility] Outpatient Encounter [id number] 01/27 [place] [facility] [place] [facility] CONFORMITY EVALUATION [id number] Diagnos is: ICD-10- CM Z46.1 Encount er for fitting and adjustm ent of hearing aid<br/ > ANICETOJASPAL DE LEON 01/29 [facility] [place] [facility] Outpatient Encounter [id number] 02/11 [facility] Social History Combined list of available smoking, tobacco, and other social history from Department of Defense and Veterans Affairs facilities. Social History Type Response Date Comment Sourc e Tobacco smoking status [facility][NOTE 3]-TOBACCO NEVER USED 04/23/2023 [facility] [place] of tobacco use [place] FORMER USER 04/24/2022 [facility]23/2021 [facility] OR MORE 08/04/2019 [facility] History of tobacco use [place]TO[place] FORMER USER 07/28/2018 [facility] History of tobacco use FORMER TOBACCO US E >1Y <7Y 09/12/2017 [facility] History of tobacco use FORMER TOBACCO US ER 7Y OR GREATER 11/30/2016 [facility] History of tobacco use FORMER TOBACCO US E >1Y <7Y 09/19/2015 [facility] History of tobacco use FORMER TOBACCO US ER 7Y OR GREATER 12/03/2014 [facility] 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 12/01/2013 [facility] History of tobacco use FORMER TOBACCO US E >1Y <7Y 05/07/2012 [facility] History of tobacco use FORMER TOBACCO US E >1Y <7Y 08/01/2011 [facility] History of tobacco use CURRENT TOBACCO USER 07/24/2010 [facility] History of tobacco use CURRENT TOBACCO USER 08/03/2009 [facility] History of tobacco use CURRENT TOBACCO USER 08/23/2008 [facility] History of tobacco use CURRENT TOBACCO USER 08/15/2007 [facility] History of tobacco use FORMER TOBACCO US E >1Y <7Y 2006 [facility] Plan of Care List of future care activities from Department of Veterans Affairs facilities. Additional future care activities may be listed in the Assessment and Plan section. Date/Time Care Activity Care Activity Detail Facili ty 02/27/2024 AMBULATORY - NONE AMBULATORY - NONE [facility] Advance Directives List of completed, amended, or rescinded Advance Directives on record at Department of [facility] facilities. An actual copy of the Directive is not included. Date Advance Directive Provider Source 03/20/2023 ADVANCE DIRECTIVE DISCUSSION ELY BERTRAND [facility] 03/20/2023 ADVANCE DIRECTIVE ELY BERTRAND [facility] 08/02/2003 ADVANCE DIRECTIVE SHANDA CESAR [facility]
--- OUTSIDE RECORDS SUMMARY | 2024-02-17 12:48 | XMS_ITS | Encounter Summary ---
Author Name [facility] Address [address] [place] [address] Care Team Providers Care Student Truck Driver Name Role Phone BRINA BIRMINGHAM Primary Care [...] PLATI LULA BLUE COMP Jul 22, 2016 [id number] [phone] JACK COHN PATIENT ANTHEM [place] PREFERRED PROVIDER ORGANIZAT ION (PPO) PLATI NUM BLUE COMP Jul 22, 2016 [id number] [phone] JACK COHN PATIENT ANTHEM [place] PREFERRED PROVIDER ORGANIZAT ION (PPO) PLATI NUM BLUE COMP Jul 22, 2016 [id number] [phone] JACK COHN PATIENT [place] PREFERRED PROVIDER ORGANIZAT ION (PPO) PLATI NUM BLUE COMP Jul 22, 2016 [id number] [phone] JACK COHN PATIENT [place] [facility] (WNR) MEDICARE ADVANTAGE [facility] (WNR) Jul 22, 2016 [id number] [phone] JACK COHN [place]IENT [place] [facility] ([place]NR) MEDICARE ADVANTAGE [facility] (WNR) Jul 22, 2016 [id number] [phone] JACK COHN MEDICARE (WNR) MEDICARE (M) PART A November 19, 2004 PART A [id number] JACK COHN MEDICARE (WNR) MEDICARE (M) PART B November 19, 2004 PART B [id number] [phone] JACK COHN PATIENT PRIME THERAPEUTI CS RX PRESCRIPT ION BCBS [facility] Jul 22, 2016 [id number] [phone] JACK COHN PATIENT Selected Encounter This section includes the information on record at [place] for the Encounter. Date/Time Encounter Type Encounter Description Reason Provider Source Apr 23, 2023 01:00 PM OFFICE O/P EST [place] 40-54 MIN PRIMARY CARE/MEDICINE ICD-10-CM I67.9 Cerebrovascular disease, unspecified VINNIE,BRINA B IHE Encounter Template Text not used by [place] Assessments - Encounter Diagnoses This section includes the primary and secondary diagnoses documented for the Encounter. Date/Time Primary/Secondary Diagnosis Diagnosis Name Provider Source Apr 23, 2023 03:47 PM PRIMARY Cerebrovascular disease, unspecified VINNIE,BRINA B [facility] Apr 23, 2023 03:47 PM SECONDARY Essential (primary) hypertension VINNIE,BRINA B [facility] Plan of Treatment: Future Appointments (+ 6 months) and Future Tests (+/- 45 days) The Plan of Treatment section includes future care activities for the patient from all [place] treatmentfacilities. This section includes future appointments and future orders which are active, pending or scheduled. Future Appointments This section includes appointments that were scheduled to occur 6 months from the date of the Encounter, up to a maximum of 20 appointments. The data comes from all [place] treatment facilities. Appointment Date/Time Appointment Type Appointme nt Facility Name May 14, 2023 02:30 PM AMBULATORY - REHAB MEDICIN E [facility] May 24, 2023 10:00 AM AMBULATORY - [place]ICINE [place] [facility] May 30, 2023 10:00 AM AMBULATORY - NONE [place] [facility] May 30, 2023 10:15 AM AMBULATORY - MEDICINE [place] [facility] May 30, 2023 11:00 AM AMBULATORY - MEDICINE [place] [facility] May 30, 2023 12:30 PM AMBULATORY - NONE [place] [facility] Jun 04, 2023 04:47 PM AMBULATORY - NONE [place] [facility] Jun 05, 2023 08:16 PM AMBULATORY - NONE [place] [facility] Jul 03, 2023 05:30 PM AMBULATORY - REHAB MEDICIN E [facility] Lab Results: +/- 30 days of the encounter This section includes the Chemistry and Hematology Lab Results on record with [place] for the patient. Radiology Reports and Pathology Reports are provided separately, in subsequent sections. Lab Results This section contains the Chemistry/Hematology Results that were resulted 30 days before or 30 daysafter the date of the Encounter. Date/Time Source Result Type Result - Unit Interpretation Reference Range Comment Apr 23, 2023 03:10 PM [facility] HEMOGLOBIN A1C Specimen Type: BLOOD Comment: Values obtained from A1C measurements can vary. For typical A1C assays, a reported value of 7.0 could actually be between 6.7 and 7.3 if measured by a reference method. A reported value of 9.0 could actually be between 8.7 and 9.3. Ref: http://www.ng sp.org/CAPdat a.asp Ordering Provider: BRINA BIRMINGHAM Report Released Date/Time: Apr 23, 2023 02:30 PM Reporting Lab: [facility] [id number] Performing Lab: [facility] [id number] HEMOGLOBIN A1C 5.3 4.0-6.0 Apr 23, 2023 03:10 PM [facility] LIPID PANEL,NON-FASTING Specimen Type: PLASMA No comment entered. Ordering Provider: BRINA BIRMINGHAM Report Released Date/Time: Apr 23, 2023 02:30 PM Reporting Lab: [facility] [id number] Performing Lab: [facility] [id number] CHOLESTEROL 108 mg/dL <199 .HDL 38 mg/dL L >40 LDL CALCULATION 38 mg/dL <99 VLDL CALCULATION 32 mg/dL H <29 NON HDL CHOLESTEROL 70 mg/dL <129 TRIG(NON FASTING) 159 mg/dL H <149 Apr 23, 2023 03:10 PM [facility] COMPREHENSIVE METABOLIC PANEL+MG Specimen Type: PLASMA No comment entered. Ordering Provider: BRINA BIRMINGHAM Report Released Date/Time: Apr 23, 2023 02:30 PM Reporting Lab: [facility] [id number] Performing Lab: [facility] [address] CREATININE 0.7 mg/dL 0.7-1.2 UREA NITROGEN 13 [...] 19 U/L <34 .CREAT EGFR(CKD-EPI) >90 >60 Apr 23, 2023 03:10 PM [facility] CBC Specimen Type: BLOOD No comment entered. Ordering Provider: BRINA BIRMINGHAM Report Released Date/Time: Apr 23, 2023 02:30 PM Reporting Lab: [facility] [id number] Performing Lab: [facility] [phone] WBC 6.57 10*3/uL 4.0-11.0 RBC 4.61 10*6/uL 4.6-6.2 HGB 13.8 g/dL 13.5-17.9 HCT 40.4 L 41-54 MCV 87.6 fL 80-100 MCH 29.9 pg 27-33 MCHC 34.2 g/dL 32.0-37.5 PLT 191 10*3/uL 150-400 MPV 11.0 fL H 7.4-10.4 RDW 13.1 11.5-14.5 Vital Signs: All taken on the encounter date This section contains inpatient and outpatient Vital Signs collected on the date of the Encounter. Date/Time Temperature Pulse Blood Pressure Respiratory Rate SP02 Pain Height Weight Body Mass Index Source Apr 23, 2023 01:11 PM 71.5 in [facility] Apr 23, 2023 01:10 PM 98 F 75 /min 132/75 mm[Hg] 18 /min 92 % 0 272.2 lb 38 [facility] Social History: Smoking Status (Most current) and Tobacco Use (All prior to encounter date) This section includes the most current, and the historical, smoking and tobacco- related health factors from the [place] facility where the Encounter took place. Current Smoking Status This section includes the most current smoking, or tobacco-related health factor, from the [place] facility where the Encounter took place. Date/Time Current Smoking Status Comment Facil ity Apr 23, 2023 01:00 PM VA-TOBACCO NEVER USED [facility] Tobacco Use History This section includes a history of the smoking, or tobacco-related health factors, that were collected on or before the date of the Encounter. The data comes from the [place] facility where the Encounter took place. Date/Time Smoking Status/Tobacco Use Comment F acility Apr 24, 2022 09:43 AM VA-TOBACCO FORMER USER [facility] Apr 24, 2022 09:43 AM VA-TOBACCO QUIT 15 YRS OR MORE [facility] Feb 23, 2021 11:00 AM VA-TOBACCO FORMER USER [facility] Feb 23, 2021 11:00 AM VA-TOBACCO QUIT 15 YRS OR MORE [facility] Aug 04, 2019 03:40 PM VA-TOBACCO FORMER USER [facility] Aug 04, 2019 03:40 PM VA-TOBACCO QUIT 15 YRS OR MORE [facility] Jul 28, 2018 10:03 AM VA-TOBACCO FORMER USER [facility] Jul 28, 2018 10:03 AM VA-TOBACCO QUIT 15 YRS OR MORE [facility] Sep 12, 2017 09:15 AM FORMER TOBACCO USE >1Y <7Y [facility] November 30, 2016 07:51 AM FORMER TOBACCO USER 7Y OR GREATE R [facility] Sep 19, 2015 11:18 AM FORMER TOBACCO USE >1Y <7Y [facility] December 03, 2014 07:58 AM FORMER TOBACCO USER 7Y OR GREATE R [facility] December 01, 2013 07:39 AM LIFETIME NON-TOBACCO USER [facility] May 07, 2012 07:53 AM FORMER TOBACCO USE >1Y <7Y [facility] Aug 01, 2011 08:59 AM FORMER TOBACCO USE >1Y <7Y [facility] Jul 24, 2010 07:49 AM CURRENT TOBACCO USER [facility] Aug 03, 2009 10:18 AM CURRENT TOBACCO USER [facility] Aug 23, 2008 07:54 AM CURRENT TOBACCO USER [facility] Aug 15, 2007 07:52 AM CURRENT TOBACCO USER [facility] 2006 07:43 AM FORMER TOBACCO USE >1Y <7Y [facility] Advance Directives: All historical and current Section Date Range: From patient's date of to the date document was created. This section includes ALL of a patient's completed or amended [place] Advance and Rescinded Directives. The entries below indicate that a directive exists for the patient, but an actual copy is not included with this document. The data comes from all [facility]. Date Advance Directives Provider Source Mar 20, 2023 ADVANCE DIRECTIVE DISCUSSION ELY BERTRAND [facility] Mar 20, 2023 [facility] ADVANCE DIRECTIVE SHANDA CESAR [facility] Encounter Notes: All associated encounter notes This section contains the clinical notes associated to the Encounter. Date/Time Encounter Note(s) Provider Source May 23, 2023 08:59 AM ADDENDUM: LOCAL TITLE: Addendum STANDARD TITLE: ADDENDUM DATE OF NOTE: MAY 23, 2023@08:59:18 ENTRY DATE: MAY 23, 2023@08:59:19 AUTHOR: ERINN FLANNERY COSIGNER: URGENCY: STATUS: COMPLETED Spoke with Raine and she prefers a call 05/24/23 at 1000. Lead Business Systems Analyst shared it was to discuss anticoagulation. Lead Business Systems Analyst shared that an anticoag consult was already placed so she might be contacted by pharmacy. She said that the provider at the residential mentioned something to her about Vet being on a reflux/GERD medication. Raine was asked if Vet has a history of stomach ulcers and was questioning the medication that the patient is on stating it's not a good penitentiary medication to be on and that it's a high dose. Raine was hoping to clarify this with Dr. Birmingham at the phone visit as well. 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 -Hemoglobin A1c -Lipids -Continue rosuvastatin 20 mg daily -Continue aspirin 81 mg daily -Zio patch -Ultrasound carotids -Neurology consult -PT/OT #Skin tears: per AVS #Right lower extremity swelling Given chronicity, lack of calf pain, and presence of varicose veins bilaterally I am a suspicious this is related to venous insufficiency. Will get an ultrasound to confirm and rule out DVT. #Right upper extremity numbness of thumb and second digit: Offered EMG, they declined for now #HTN: amlodipine 5 mg daily, lisiniopril 10 mg daily CHRONIC #MCI May be related to above. Now living in [facility]. #Low back pain with MRI and EMG proven right-sided radiculopathy, resolved At one point neurosurgery was planning for L2-S1 fusion with L3-5 laminectomies but this was cancelled 10/2021. Has had improvement with duloxetine and use of Rollator. #BPH, nocturia, urgency: Has long history of this, and previously followed with urology, last seeing them 2018. Have previously held HCTZ/lisinopril without much benefit and transitioning to mirabegron 25 mg daily. Prior UA has been normal. Have discussed MEGHA screening in the past, which he has declined. -Tamsulosin 0.8 mg nightly -Finasteride 5 mg daily #GERD, hiatal hernia: pantoprazole 40 mg daily #Depression: duloxetine 60 mg daily #Morbid obesity #Chronic hip pain: was evaluated by ortho 09/2017 and deferred surgery given the patient's weight, suggested [facility] clinic RTC: 6 month Brina Birmingham MD General Internal Medicine [facility] A total of 60 minutes was spent on this visit reviewing previous notes, counseling the patient, ordering or interpreting tests, adjusting meds, and documenting the findings in the note. CC: Hospital f/u HPI Today patient says he is doing well. Since his discharge he has been evaluated by speech and cleared for eating and does not seem to be have any trouble with coughing or choking. He still has some difficulty moving around, he says related to his right foot dragging. He is working with PT and OT at his assisted living facility and is moving in the right direction from the perspective of mobility, but did have a fall a few days ago where he had a skin tear over the right knee and right hand. His daughter says he is always had trouble with short-term memory, and he was much worse after the stroke with hospital-acquired delirium, but seems to be moving in the right direction. He is not missing any appointments and is using tools such as a calendar to remember where he should be and when. His memory still was not perfect, however. He is no longer driving. He has some loss of sensation in his right thumb, right second finger that apparently is not new but beyond that he seems to be doing well from a neurologic perspective. He says he also has chronic right lower extremity swelling, he is unsure how long its been there. MEDICATION RECONCILATION Education Evaluations *Was medication education provided for NEW medications or CHANGES to medications? (including medication name, dose, route, reason for use, and potential side effects). No new medications or medication changes during this encounter. TERATOGENIC MED & CONTRACEPTION REVIEW (Optional)... MEDICATION RECONCILIATION List Given: An updated medication list was provided to the patient/caregiver. Review Done: The medication list shown below was verified for accuracy and it includes all pending medications/active medications/all medications or discontinued within the last 90 days/all remote medications and non-VA medications. If a given category (i.e. remote meds) is not shown, that means that a patient doesn't have a medication(s) in that category. Allergies listed below were also reviewed/updated for accuracy. Allergies/ADR from [facility] may not display in CPRS. Use JLV MRT5 - Allergies/ADRs [facility] ALLERGY/ADR -------- No Remote Allergy/ADR Data available for this patient [facility] MORPHINE Active and Recently Outpatient Medications (including Supplies): Issue Date Status Last Fill Active Outpatient Medications Refills Expiration 1) ACETAMINOPHEN 500MG TAB Qty: 600 for 90 ACTIVE Issu:04-03-23 days Sig: TAKE TWO TABLETS BY MOUTH Refills: 3 Last:04-04-23 TWICE A DAY AND TAKE TWO TABLETS EVERY Expr:04-03-24 DAY NEEDED FOR PAIN 2) AMLODIPINE BESYLATE 5MG TAB Qty: 90 for ACTIVE Issu:04-03-23 90 days Sig: TAKE ONE TABLET BY MOUTH Refills: 3 Last:04-04-23 EVERY DAY FOR BLOOD PRESSURE Expr:04-03-24 3) APPLICATOR,COTTON TIP STERILE Qty: 200 ACTIVE Issu:04-23-23 for 90 days Si APPLICATOR Refills: 0 Last:04-23-23 TOPICALLY DIRECTED FOR SKIN Expr:07-22-23 TEAR/WOUND CARES 4) ASPIRIN 81MG CHEW TAB Qty: 108 for 90 ACTIVE Issu:04-03-23 days Sig: CHEW ONE TABLET BY MOUTH Refills: 3 Last:04-04-23 EVERY DAY TO PREVENT BLOOD CLOTS Expr:04-03-24 5) CARBOXYMETHYLCELLULOSE NA 0.5% OPH SOLN ACTIVE Issu:04-03-23 Qty: 15 for 30 days Sig: INSTILL 1 Refills: 11 Last:04-04-23 DROP IN BOTH EYES FOUR TIMES A DAY Expr:04-03-24 NEEDED FOR DRY EYES 6) DULOXETINE HCL 60MG EC CAP Qty: 90 for ACTIVE Issu:04-03-23 90 days Sig: TAKE ONE CAPSULE BY Refills: 3 Last:04-04-23 MOUTH EVERY DAY REPLACES CITALOPRAM Expr:04-03-24 PRESCRIPTION 7) FINASTERIDE 5MG TAB Qty: 90 for 90 days ACTIVE Issu:04-03-23 Sig: TAKE ONE TABLET BY MOUTH EVERY Refills: 3 Last:04-04-23 DAY FOR PROSTATE Expr:04-03-24 8) GAUZE PAD 4IN X 4IN 8-PLY NONSTERILE ACTIVE Issu:04-23-23 Qty: 200 for 30 days Sig: USE GAUZE Refills: 11 Last:04-23-23 SPONGE/PAD TOPICALLY DIRECTED FOR Expr:04-23-24 WOUND CARE 9) LISINOPRIL 10MG TAB Qty: 90 for 90 days ACTIVE Issu:04-03-23 Sig: TAKE ONE TABLET BY MOUTH EVERY Refills: 3 Last:04-04-23 DAY FOR BLOOD PRESSURE Expr:04-03-24 10) MUPIROCIN 2% OINT Qty: 22 for 30 days ACTIVE Issu:04-04-23 Sig: APPLY THIN LAYER TOPICALLY TWICE Refills: 5 Last:04-05-23 A DAY FOR INFECTION Expr:04-04-24 11) PANTOPRAZOLE NA 40MG EC TAB Qty: 90 for ACTIVE Issu:04-03-23 90 days Sig: TAKE ONE TABLET BY MOUTH Refills: 3 Last:04-04-23 EVERY EVENING TO DECREASE STOMACH ACID Expr:04-03-24 -TAKE ON AN EMPTY STOMACH, AT LEAST ONE-HALF HOUR BEFORE EATING 12) ROSUVASTATIN CA 20MG TAB Qty: 90 for 90 ACTIVE Issu:04-03-23 days Sig: TAKE ONE TABLET BY MOUTH Refills: 3 Last:04-04-23 EVERY DAY FOR CHOLESTEROL Expr:04-03-24 13) SENNOSIDES 8.6MG TAB Qty: 200 for 90 ACTIVE Issu:04-03-23 days Sig: TAKE ONE TABLET BY MOUTH Refills: 3 Last:04-04-23 EVERY DAY AND TAKE ONE TABLET EVERY Expr:04-03-24 DAY NEEDED FOR CONSTIPATION 14) SODIUM CHLORIDE 0.9% PF INJ SYR 10ML ACTIVE Issu:04-23-23 Qty: 30 for 30 days Sig: INJECT 10 ML Refills: 0 Last:04-23-23 TOPICALLY DIRECTED FOR WOUND Expr:05-23-23 CLEANSING 15) TAMSULOSIN HCL 0.4MG CAP Qty: 180 for ACTIVE Issu:04-03-23 90 days Sig: TAKE TWO CAPSULES BY Refills: 3 Last:04-04-23 MOUTH AT BEDTIME Expr:04-03-24 Issue Date Status Last Fill Inactive Outpatient Medications Refills Expiration 1) AMLODIPINE BESYLATE 5MG TAB Qty: 90 for DISCONTINUED Issu:11-08-22 90 days Sig: TAKE ONE TABLET BY MOUTH Refills: 3 Last:11-08-22 EVERY DAY FOR BLOOD PRESSURE Expr:11-09-23 2) AMLODIPINE BESYLATE 5MG TAB Qty: 135 DISCONTINUED Issu:04-25-22 for 90 days Sig: TAKE ONE AND (EDIT) Last:04-26-22 ONE-HALF TABLETS BY MOUTH DAILY FOR Refills: 3 Expr:04-26-23 BLOOD PRESSURE 3) DULOXETINE HCL 60MG EC CAP Qty: 90 for DISCONTINUED Issu:11-08-22 90 days Sig: TAKE ONE CAPSULE BY Refills: 3 Last:01-11-23 MOUTH EVERY DAY REPLACES CITALOPRAM Expr:11-09-23 PRESCRIPTION 4) FINASTERIDE 5MG TAB Qty: 90 for 90 days DISCONTINUED Issu:11-08-22 Sig: TAKE ONE TABLET BY MOUTH EVERY Refills: 3 Last:01-11-23 DAY FOR PROSTATE Expr:11-09-23 5) HCTZ 25/LISINOPRIL 20MG TAB Qty: 90 for DISCONTINUED Issu:04-25-22 90 days Sig: TAKE 1 TABLET BY MOUTH Refills: 3 Last:04-26-22 EVERY MORNING Expr:04-26-23 6) MIRABEGRON 25MG SA TAB Qty: 30 for 30 DISCONTINUED Issu:11-08-22 days Sig: TAKE ONE TABLET BY MOUTH Refills: 0 Last:02-27-23 EVERY DAY Expr:11-09-23 7) PANTOPRAZOLE NA 40MG EC TAB Qty: 90 for DISCONTINUED Issu:11-08-22 90 days Sig: TAKE ONE TABLET BY MOUTH Refills: 3 Last:01-24-23 EVERY EVENING TO DECREASE STOMACH ACID Expr:11-09-23 -TAKE ON AN EMPTY STOMACH, AT LEAST ONE-HALF HOUR BEFORE EATING 8) TAMSULOSIN HCL 0.4MG CAP Qty: 180 for DISCONTINUED Issu:11-08-22 90 days Sig: TAKE TWO CAPSULES BY Refills: 3 Last:01-11-23 MOUTH AT BEDTIME Expr:11-09-23 23 Total Medications PHYSICAL EXAM VS: Temp: 98 F [36.7 C] (04/23/2023 13:10) BP: 132/75 (04/23/2023 13:10) Pulse:75 (04/23/2023 13:10) Resp: 18 (04/23/2023 13:10) Pain: 0 (04/23/2023 13:10) Weight: WEIGHTS IN LAST 6 MONTHS: 272.2 (APR 23, 2023@13:10:55) 265 (NOV 08, 2022@10:25:11) General: Sitting in exam room, no acute distress Pulmonary: Clear to auscultation bilaterally, nonlabored breathing Cardiovascular: Regular rate and rhythm, no extra sounds Extremities: Trace right lower extremity edema, no left lower extremity edema. Varicose veins noted bilaterally. Approximately 2 cm circular skin tear over right knee and 1 cm circular skin tear over right radial surface of hand. Gait: Patient is sitting in a wheelchair Neuro: Cranial nerves II through XII intact bilaterally, normal strength bilateral right upper extremities that there is a little bit of decreased strength with opposition of thumb and flexion of right second digit on the right. Normal strength at ankles, knees, hips. LABS and STUDIES WBC: 6.57 RBC: 4.61 HGB: 13.8 HCT: 40.4 L MCV: 87.6 MCH: 29.9 MCHC: 34.2 RDW: 13.1 PLT: 191 MPV: 11.0 H /corry BIRMINGHAM MD PHYSICIAN, [facility] Signed: 04/23/2023 15:47 05/21/2023 ADDENDUM STATUS: COMPLETED Yamilet, the patient's radiation monitor shows he has an irregular rhythm called atrial fibrilltion. The neurologist would like him to be on a special blood thinner called apixaban (and they have placed an anticoagulation consult to help with this). I'd like to chat with the patient and probably his daughter, Raine, who helps make decisions for him RE the blood thinner (I believe she is the default contact in CPRS). Can you see if they have any availability for me to call sometime Saturday morning (anytime between 10:00 am until noon). /corry BIRMINGHAM MD PHYSICIAN, [facility] Signed: 05/21/2023 16:22 Receipt Acknowledged By: 05/23/2023 08:58 /chadwick/ ERINN FLANNERY RN REGISTERED NURSE ERINN FLANNERY [facility] May 21, 2023 04:17 PM ADDENDUM: LOCAL TITLE: Addendum STANDARD TITLE: ADDENDUM DATE OF NOTE: MAY 21, 2023@16:17:07 ENTRY DATE: MAY 21, 2023@16:17:09 AUTHOR: BRINA BIRMINGHAM EXP COSIGNER: URGENCY: STATUS: COMPLETED Yamilet, the patient's radiation monitor shows he has an irregular rhythm called atrial fibrilltion. The neurologist would like him to be on a special blood thinner called apixaban (and they have placed an anticoagulation consult to help with this). I'd like to chat with the patient and probably his daughter, Raine, who helps make decisions for him RE the blood thinner (I believe she is the default contact in CPRS). Can you see if they have any availability for me to call sometime Saturday morning (anytime between 10:00 am until noon). 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 -Hemoglobin A1c -Lipids -Continue rosuvastatin 20 mg daily -Continue aspirin 81 mg daily -Zio patch -Ultrasound carotids -Neurology consult -PT/OT #Skin tears: per AVS #Right lower extremity swelling Given chronicity, lack of calf pain, and presence of varicose veins bilaterally I am a suspicious this is related to venous insufficiency. Will get an ultrasound to confirm and rule out DVT. #Right upper extremity numbness of thumb and second digit: Offered EMG, they declined for now #HTN: amlodipine 5 mg daily, lisiniopril 10 mg daily CHRONIC #MCI May be related to above. Now living in [facility]. #Low back pain with MRI and EMG proven right-sided radiculopathy, resolved At one point neurosurgery was planning for L2-S1 fusion with L3-5 laminectomies but this was cancelled 10/2021. Has had improvement with duloxetine and use of Rollator. #BPH, nocturia, urgency: Has long history of this, and previously followed with urology, last seeing them 2018. Have previously held HCTZ/lisinopril without much benefit and transitioning to mirabegron 25 mg daily. Prior UA has been normal. Have discussed MEGHA screening in the past, which he has declined. -Tamsulosin 0.8 mg nightly -Finasteride 5 mg daily #GERD, hiatal hernia: pantoprazole 40 mg daily #Depression: duloxetine 60 mg daily #Morbid obesity #Chronic hip pain: was evaluated by ortho 09/2017 and deferred surgery given the patient's weight, suggested [facility] clinic RTC: 6 month Brina Birmingham MD General Internal Medicine [facility] A total of 60 minutes was spent on this visit reviewing previous notes, counseling the patient, ordering or interpreting tests, adjusting meds, and documenting the findings in the note. CC: Hospital f/u HPI Today patient says he is doing well. Since his discharge he has been evaluated by speech and cleared for eating and does not seem to be have any trouble with coughing or choking. He still has some difficulty moving around, he says related to his right foot dragging. He is working with PT and OT at his assisted living facility and is moving in the right direction from the perspective of mobility, but did have a fall a few days ago where he had a skin tear over the right knee and right hand. His daughter says he is always had trouble with short-term memory, and he was much worse after the stroke with hospital-acquired delirium, but seems to be moving in the right direction. He is not missing any appointments and is using tools such as a calendar to remember where he should be and when. His memory still was not perfect, however. He is no longer driving. He has some loss of sensation in his right thumb, right second finger that apparently is not new but beyond that he seems to be doing well from a neurologic perspective. He says he also has chronic right lower extremity swelling, he is unsure how long its been there. MEDICATION RECONCILATION Education Evaluations *Was medication education provided for NEW medications or CHANGES to medications? (including medication name, dose, route, reason for use, and potential side effects). No new medications or medication changes during this encounter. TERATOGENIC MED & CONTRACEPTION REVIEW (Optional)... MEDICATION RECONCILIATION List Given: An updated medication list was provided to the patient/caregiver. Review Done: The medication list shown below was verified for accuracy and it includes all pending medications/active medications/all medications or discontinued within the last 90 days/all remote medications and non-VA medications. If a given category (i.e. remote meds) is not shown, that means that a patient doesn't have a medication(s) in that category. Allergies listed below were also reviewed/updated for accuracy. Allergies/ADR from [facility]D may not display in CPRS. Use JLV MRT5 - Allergies/ADRs FACILITY ALLERGY/ADR -------- No Remote Allergy/ADR Data available for this patient [facility] MORPHINE Active and Recently Outpatient Medications (including Supplies): Issue Date Status Last Fill Active Outpatient Medications Refills Expiration 1) ACETAMINOPHEN 500MG TAB Qty: 600 for 90 ACTIVE Issu:04-03-23 days Sig: TAKE TWO TABLETS BY MOUTH Refills: 3 Last:04-04-23 TWICE A DAY AND TAKE TWO TABLETS EVERY Expr:04-03-24 DAY NEEDED FOR PAIN 2) AMLODIPINE BESYLATE 5MG TAB Qty: 90 for ACTIVE Issu:04-03-23 90 days Sig: TAKE ONE TABLET BY MOUTH Refills: 3 Last:04-04-23 EVERY DAY FOR BLOOD PRESSURE Expr:04-03-24 3) APPLICATOR,COTTON TIP STERILE Qty: 200 ACTIVE Issu:04-23-23 for 90 days Si APPLICATOR Refills: 0 Last:04-23-23 TOPICALLY DIRECTED FOR SKIN Expr:07-22-23 TEAR/WOUND CARES 4) ASPIRIN 81MG CHEW TAB Qty: 108 for 90 ACTIVE Issu:04-03-23 days Sig: CHEW ONE TABLET BY MOUTH Refills: 3 Last:04-04-23 EVERY DAY TO PREVENT BLOOD CLOTS Expr:04-03-24 5) CARBOXYMETHYLCELLULOSE NA 0.5% OPH SOLN ACTIVE Issu:04-03-23 Qty: 15 for 30 days Sig: INSTILL 1 Refills: 11 Last:04-04-23 DROP IN BOTH EYES FOUR TIMES A DAY Expr:04-03-24 NEEDED FOR DRY EYES 6) DULOXETINE HCL 60MG EC CAP Qty: 90 for ACTIVE Issu:04-03-23 90 days Sig: TAKE ONE CAPSULE BY Refills: 3 Last:04-04-23 MOUTH EVERY DAY REPLACES CITALOPRAM Expr:04-03-24 PRESCRIPTION 7) FINASTERIDE 5MG TAB Qty: 90 for 90 days ACTIVE Issu:04-03-23 Sig: TAKE ONE TABLET BY MOUTH EVERY Refills: 3 Last:04-04-23 DAY FOR PROSTATE Expr:04-03-24 8) GAUZE PAD 4IN X 4IN 8-PLY NONSTERILE ACTIVE Issu:04-23-23 Qty: 200 for 30 days Sig: USE GAUZE Refills: 11 Last:04-23-23 SPONGE/PAD TOPICALLY DIRECTED FOR Expr:04-23-24 WOUND CARE 9) LISINOPRIL 10MG TAB Qty: 90 for 90 days ACTIVE Issu:04-03-23 Sig: TAKE ONE TABLET BY MOUTH EVERY Refills: 3 Last:04-04-23 DAY FOR BLOOD PRESSURE Expr:04-03-24 10) MUPIROCIN 2% OINT Qty: 22 for 30 days ACTIVE Issu:04-04-23 Sig: APPLY THIN LAYER TOPICALLY TWICE Refills: 5 Last:04-05-23 A DAY FOR INFECTION Expr:04-04-24 11) PANTOPRAZOLE NA 40MG EC TAB Qty: 90 for ACTIVE Issu:04-03-23 90 days Sig: TAKE ONE TABLET BY MOUTH Refills: 3 Last:04-04-23 EVERY EVENING TO DECREASE STOMACH ACID Expr:04-03-24 -TAKE ON AN EMPTY STOMACH, AT LEAST ONE-HALF HOUR BEFORE EATING 12) ROSUVASTATIN CA 20MG TAB Qty: 90 for 90 ACTIVE Issu:04-03-23 days Sig: TAKE ONE TABLET BY MOUTH Refills: 3 Last:04-04-23 EVERY DAY FOR CHOLESTEROL Expr:04-03-24 13) SENNOSIDES 8.6MG TAB Qty: 200 for 90 ACTIVE Issu:04-03-23 days Sig: TAKE ONE TABLET BY MOUTH Refills: 3 Last:04-04-23 EVERY DAY AND TAKE ONE TABLET EVERY Expr:04-03-24 DAY NEEDED FOR CONSTIPATION 14) SODIUM CHLORIDE 0.9% PF INJ SYR 10ML ACTIVE Issu:04-23-23 Qty: 30 for 30 days Sig: INJECT 10 ML Refills: 0 Last:04-23-23 TOPICALLY DIRECTED FOR WOUND Expr:05-23-23 CLEANSING 15) TAMSULOSIN HCL 0.4MG CAP Qty: 180 for ACTIVE Issu:04-03-23 90 days Sig: TAKE TWO CAPSULES BY Refills: 3 Last:04-04-23 MOUTH AT BEDTIME Expr:04-03-24 Issue Date Status Last Fill Inactive Outpatient Medications Refills Expiration 1) AMLODIPINE BESYLATE 5MG TAB Qty: 90 for DISCONTINUED Issu:11-08-22 90 days Sig: TAKE ONE TABLET BY MOUTH Refills: 3 Last:11-08-22 EVERY DAY FOR BLOOD PRESSURE Expr:11-09-23 2) AMLODIPINE BESYLATE 5MG TAB Qty: 135 DISCONTINUED Issu:04-25-22 for 90 days Sig: TAKE ONE AND (EDIT) Last:04-26-22 ONE-HALF TABLETS BY MOUTH DAILY FOR Refills: 3 Expr:04-26-23 BLOOD PRESSURE 3) DULOXETINE HCL 60MG EC CAP Qty: 90 for DISCONTINUED Issu:11-08-22 90 days Sig: TAKE ONE CAPSULE BY Refills: 3 Last:01-11-23 MOUTH EVERY DAY REPLACES CITALOPRAM Expr:11-09-23 PRESCRIPTION 4) FINASTERIDE 5MG TAB Qty: 90 for 90 days DISCONTINUED Issu:11-08-22 Sig: TAKE ONE TABLET BY MOUTH EVERY Refills: 3 Last:01-11-23 DAY FOR PROSTATE Expr:11-09-23 5) HCTZ 25/LISINOPRIL 20MG TAB Qty: 90 for DISCONTINUED Issu:04-25-22 90 days Sig: TAKE 1 TABLET BY MOUTH Refills: 3 Last:04-26-22 EVERY MORNING Expr:04-26-23 6) MIRABEGRON 25MG SA TAB Qty: 30 for 30 DISCONTINUED Issu:11-08-22 days Sig: TAKE ONE TABLET BY MOUTH Refills: 0 Last:02-27-23 EVERY DAY Expr:11-09-23 7) PANTOPRAZOLE NA 40MG EC TAB Qty: 90 for DISCONTINUED Issu:11-08-22 90 days Sig: TAKE ONE TABLET BY MOUTH Refills: 3 Last:01-24-23 EVERY EVENING TO DECREASE STOMACH ACID Expr:11-09-23 -TAKE ON AN EMPTY STOMACH, AT LEAST ONE-HALF HOUR BEFORE EATING 8) TAMSULOSIN HCL 0.4MG CAP Qty: 180 for DISCONTINUED Issu:11-08-22 90 days Sig: TAKE TWO CAPSULES BY Refills: 3 Last:01-11-23 MOUTH AT BEDTIME Expr:11-09-23 23 Total Medications PHYSICAL EXAM VS: Temp: 98 F [36.7 C] (04/23/2023 13:10) BP: 132/75 (04/23/2023 13:10) Pulse:75 (04/23/2023 13:10) Resp: 18 (04/23/2023 13:10) Pain: 0 (04/23/2023 13:10) Weight: WEIGHTS IN LAST 6 MONTHS: 272.2 (APR 23, 2023@13:10:55) 265 (NOV 08, 2022@10:25:11) General: Sitting in exam room, no acute distress Pulmonary: Clear to auscultation bilaterally, nonlabored breathing Cardiovascular: Regular rate and rhythm, no extra sounds Extremities: Trace right lower extremity edema, no left lower extremity edema. Varicose veins noted bilaterally. Approximately 2 cm circular skin tear over right knee and 1 cm circular skin tear over right radial surface of hand. Gait: Patient is sitting in a wheelchair Neuro: Cranial nerves II through XII intact bilaterally, normal strength bilateral right upper extremities that there is a little bit of decreased strength with opposition of thumb and flexion of right second digit on the right. Normal strength at ankles, knees, hips. LABS and STUDIES WBC: 6.57 RBC: 4.61 HGB: 13.8 HCT: 40.4 L MCV: 87.6 MCH: 29.9 MCHC: 34.2 RDW: 13.1 PLT: 191 MPV: 11.0 H /chadwick/ BRINA BIRMINGHAM MD PHYSICIAN, [facility] Signed: 04/23/2023 15:47 05/23/2023 ADDENDUM STATUS: UNSIGNED You may not VIEW this UNSIGNED Addendum. BRINA BIRMINGHAM [facility] Apr 24, 2023 08:37 AM LETTERS: LOCAL TITLE: FOLLOW UP RESULTS LETTER STANDARD TITLE: LETTERS DATE OF NOTE: APR 24, 2023@08:37 ENTRY DATE: APR 24, 2023@08:38:01 AUTHOR: BRINA BIRMINGHAM EXP COSIGNER: URGENCY: STATUS: COMPLETED [facility] [address] [place] [address] Apr SHANTANU NAVARRETEFLTERRENCE [address] [address] Dear : It was nice seeing you and your daughter yesterday. I wanted to let you know that your lab work looks good. Your kidney and liver function is normal. Your LDL, the bad cholesterol, is at a good level at 38 mg/dL. Your blood sugar is well controlled and your blood counts are normal. - Cholesterol Tests (HDL = good and LDL = bad) CHOLESTEROL 108 (04/23/23) (prefer less than 200) HDL 38 L (04/23/23) (prefer more than 39) LDL CALCULATION 38 (04/23/23) (prefer less than 100) - Complete Blood Count (red/white blood cell counts and platelets) White count: WBC 6.57 (04/23/23) (normal is 4.0-11.0) Hemoglobin: HGB 13.8 (04/23/23) (normal Male is 13.5-17.9; Female is 11.5-16) Hematocrit: HCT 40.4 L (04/23/23) (normal Male is 41-54; Female is 34.5-48) Platelets: PLT 191 (04/23/23) (normal is 150-400) - Kidney function CREATININE 0.7 (04/23/23)(normal Male = less than 1.2; normal Female = less than 1.0)) UREA NITROGEN 13 (04/23/23) (normal Male is 8-26; normal Female is 10- 20) - Liver function Tests AST/SGOT 19 (04/23/23) (normal 15-37) ALT/SGPT 9 (04/23/23) (normal 13-61) ALK PHOSPHATASE 41 (04/23/23) (normal 45-117) BILIRUBIN, TOTAL 0.5 (04/23/23) (normal 0.2-1.0) - Hemoglobin A1C (normal 4.0-6.0) Collection DT Spec HGBA1C 04/23/2023 15:10 BLOOD 5.3 11/08/2022 09:36 BLOOD 5.4 08/29/2021 17:05 BLOOD 5.5 If you have any further questions or problems, please contact our nursing staff or me at the following number: [phone]. Sincerely, BRINA BIRMNIGHAM MD PHYSICIAN, [facility] BRINA BIRMINGHAM [facility] Apr 23, 2023 02:36 PM ADMINISTRATIVE NOTE: LOCAL TITLE: AFTER VISIT SUMMARY NOTE STANDARD TITLE: ADMINISTRATIVE NOTE DICT DATE: APR 23, 2023@14:36:22 ENTRY DATE: APR 23, 2023@14:36:22 DICTATED BY: BRINA BIRMINGHAM EXP COSIGNER: URGENCY: STATUS: COMPLETED The patient was provided with a copy of an after-visit summary at the conclusion of the visit. A copy of the after-visit summary provided to the patient is available in Goodreads. SCANNED DOCUMENT SIGNATURE NOT REQUIRED Electronically Filed: 04/23/2023 by: BRINA BIRMINGHAM MD PHYSICIAN, [facility] BRINA BIRMINGHAM [facility] Apr 23, 2023 01:12 PM INTERNAL MEDICINE OUTPATIENT NOTE: LOCAL TITLE: MEDICINE CLINIC NURSING NOTE STANDARD TITLE: INTERNAL MEDICINE OUTPATIENT NOTE DATE OF NOTE: APR 23, 2023@13:12 ENTRY DATE: APR 23, 2023@13:12:14 AUTHOR: URI DAWSON EXP COSIGNER: URGENCY: STATUS: COMPLETED MEDICINE CLINIC NURSING NOTE Has ADDENDA TYPE OF VISIT: Appointment Check In Type of appointment: In-person appointment REASON FOR VISIT: follow-up ALLERGIES: MORPHINE (Apr 24, 2021) VITAL SIGNS: Blood Pressure: 132/75 (04/23/2023 13:10) Pulse: 75 (04/23/2023 13:10) Respiration: 18 (04/23/2023 13:10) Temperature: 98 F [36.7 C] (04/23/2023 13:10) Weight: 272.2 lb [123.47 kg] (04/23/2023 13:10) Height: 71.5 in [181.6 cm] (04/23/2023 13:11) BMI: 37.5 O2 Sat: 92% (04/23/2023 13:10) Pain: 0 (04/23/2023 13:10) PAIN SCREEN: Patient is not having significant pain that they wish to discuss with their provider today. MEDICATION Over the Counter/Herbal Medications: The patient denies taking any outside medications or herbals. Suicide Screen: C-SSRS Screening [place] Suicide Severity Rating Scale (C-SSRS) screener 1. [...] required due to responses to other questions. Depression Screening: Perform PHQ-2 A PHQ-2 screen was performed. The score was 2 which is a negative screen for depression. Over the past two weeks, how often have you been bothered by the following problems? 1. Little interest or pleasure in doing things Several days 2. Feeling down, depressed, or hopeless Several days Nursing Annual Screening: Fall History Screen During the past 12 months, have you had any falls? Patient reports having had 2 or more falls within the past 12 months. MEDICATIONS: Patient is on one of the following medication classes: Antihypertensives, Antidepressants, Antipsychotics, Diuretics, or Controlled substance medication used for pain. FALL RISK ADVICE: Fall Risk Advice provided. Handout entitled Fall Prevention At Home reviewed and given to patient and/or significant other. Script Talk Screen Are you able to read your prescription bottles with your glasses, magnifiers or other aids? Yes or patient not taking any prescriptions. Skin Screen Patient reports any current pressure ulcers, a history of pressure ulcers, or a wound from a medical librarian or Patient is bed-confined or a wheelchair-user or Patient requires assistance to transfer/change position No, Skin Screen is Negative Home Abuse/Violence Screen Is your home free of abuse and violence? Yes MOVE! Program Screen Body Mass Index (BMI)= 37.5 [place]: Collection DT Specimen Test Name Result Units Ref Range 11/08/2022 09:36 BLOOD !! HEMOGLOBIN A1C 5.4 % 4.0 - 6.0 !! Indicates COMMENTS AVAILABLE...Refer to Interim Lab Report. [place] Hgb A1C: No data available [place] Hgb A1C: No data available Point of Care Hgb A1C: POC HGB A1C____ Outpatient Nutrition Screen Body Mass Index (BMI)= 37.5 [place]: Collection DT Specimen Test Name Result Units Ref Range 11/08/2022 09:36 BLOOD !! HEMOGLOBIN A1C 5.4 % 4.0 - 6.0 !! Indicates COMMENTS AVAILABLE...Refer to Interim Lab Report. [place] Hgb A1C: No data available [place] Hgb A1C: No data available Point of Care Hgb A1C: POC HGB A1C____ Is patient's BMI less than 18.5? No Does patient have swallowing, coughing, or chewing problems affecting oral intake? No Has patient experienced unplanned weight loss or gain greater than 10 pounds over the last 2 months? No Is patient's Hgb A1C (Glycosylated Hemoglobin) greater than 9.5? No Is patient receiving Total Parenteral Nutrition (TPN) or Tube Feedings? No Patient Health Education Screen BARRIERS/SPECIAL NEEDS: Physical limitations Hearing limitations Visual limitations PREFERRED STYLE OF LEARNING: Reading Client Assistive Service (ANGELINA) Screen Does the patient require assistance with outpatient visit? No Tobacco Use Screening: The patient has never used tobacco. Homelessness/Food Insecurity Screen: In the past 2 months, have you been living in stable housing that you own, rent, or stay in as part of a household? Yes - Living in stable housing. Are you worried or concerned that in the next 2 months you may NOT have stable housing that you own, rent, or stay in as part of a household? No - Not worried about housing near future The reports the following: Within the past 12 months, you worried whether your food would run out before you got money to buy more. Never true Within the past 12 months, the food you bought just didn't last and you didn't have money to get more. Never true Food Insecurity Resources not needed /chadwick/ URI DAWSON LPN Signed: 04/23/2023 13:16 04/23/2023 ADDENDUM STATUS: COMPLETED Influenza Immunization: The patient has received the seasonal influenza vaccine for the current season at another location. Documented: INFLUENZA, UNSPECIFIED FORMULATION Historical Date Administered: Apr 17, 2023 Information Source: FROM PATIENT'S RECALL /chadwick/ URI DAWSON LPN Signed: 04/23/2023 13:17 04/23/2023 ADDENDUM STATUS: COMPLETED EDUCATION: PARTICIPANT(s): Patient Other: 12 lead EKG performed, results given to PCP Dr Birmingham. 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 -Hemoglobin A1c -Lipids -Continue rosuvastatin 20 mg daily -Continue aspirin 81 mg daily -Zio patch -Ultrasound carotids -Neurology consult -PT/OT #Skin tears: per AVS #Right lower extremity swelling Given chronicity, lack of calf pain, and presence of varicose veins bilaterally I am a suspicious this is related to venous insufficiency. Will get an ultrasound to confirm and rule out DVT. #Right upper extremity numbness of thumb and second digit: Offered EMG, they declined for now #HTN: amlodipine 5 mg daily, lisiniopril 10 mg daily CHRONIC #MCI May be related to above. Now living in [facility]. #Low back pain with MRI and EMG proven right-sided radiculopathy, resolved At one point neurosurgery was planning for L2-S1 fusion with L3-5 laminectomies but this was cancelled 10/2021. Has had improvement with duloxetine and use of Rollator. #BPH, nocturia, urgency: Has long history of this, and previously followed with urology, last seeing them 2018. Have previously held HCTZ/lisinopril without much benefit and transitioning to mirabegron 25 mg daily. Prior UA has been normal. Have discussed MEGHA screening in the past, which he has declined. -Tamsulosin 0.8 mg nightly -Finasteride 5 mg daily #GERD, hiatal hernia: pantoprazole 40 mg daily #Depression: duloxetine 60 mg daily #Morbid obesity #Chronic hip pain: was evaluated by ortho 09/2017 and deferred surgery given the patient's weight, suggested MOVE clinic RTC: 6 month Brina Birmingham MD General Internal Medicine [facility] A total of 60 minutes was spent on this visit reviewing previous notes, counseling the patient, ordering or interpreting tests, adjusting meds, and documenting the findings in the note. CC: Hospital f/u HPI Today patient says he is doing well. Since his discharge he has been evaluated by speech and cleared for eating and does not seem to be have any trouble with coughing or choking. He still has some difficulty moving around, he says related to his right foot dragging. He is working with PT and OT at his assisted living facility and is moving in the right direction from the perspective of mobility, but did have a fall a few days ago where he had a skin tear over the right knee and right hand. His daughter says he is always had trouble with short-term memory, and he was much worse after the stroke with hospital-acquired delirium, but seems to be moving in the right direction. He is not missing any appointments and is using tools such as a calendar to remember where he should be and when. His memory still was not perfect, however. He is no longer driving. He has some loss of sensation in his right thumb, right second finger that apparently is not new but beyond that he seems to be doing well from a neurologic perspective. He says he also has chronic right lower extremity swelling, he is unsure how long its been there. MEDICATION RECONCILATION Education Evaluations *Was medication education provided for NEW medications or CHANGES to medications? (including medication name, dose, route, reason for use, and potential side effects). No new medications or medication changes during this encounter. TERATOGENIC MED & CONTRACEPTION REVIEW (Optional)... MEDICATION RECONCILIATION List Given: An updated medication list was provided to the patient/caregiver. Review Done: The medication list shown below was verified for accuracy and it includes all pending medications/active medications/all medications or discontinued within the last 90 days/all remote medications and non-VA medications. If a given category (i.e. remote meds) is not shown, that means that a patient doesn't have a medication(s) in that category. Allergies listed below were also reviewed/updated for accuracy. Allergies/ADR from [facility]D may not display in CPRS. Use JLV MRT5 - Allergies/ADRs FACILITY ALLERGY/ADR -------- No Remote Allergy/ADR Data available for this patient [facility] MORPHINE Active and Recently Outpatient Medications (including Supplies): Issue Date Status Last Fill Active Outpatient Medications Refills Expiration 1) ACETAMINOPHEN 500MG TAB Qty: 600 for 90 ACTIVE Issu:04-03-23 days Sig: TAKE TWO TABLETS BY MOUTH Refills: 3 Last:04-04-23 TWICE A DAY AND TAKE TWO TABLETS EVERY Expr:04-03-24 DAY NEEDED FOR PAIN 2) AMLODIPINE BESYLATE 5MG TAB Qty: 90 for ACTIVE Issu:04-03-23 90 days Sig: TAKE ONE TABLET BY MOUTH Refills: 3 Last:04-04-23 EVERY DAY FOR BLOOD PRESSURE Expr:04-03-24 3) APPLICATOR,COTTON TIP STERILE Qty: 200 ACTIVE Issu:04-23-23 for 90 days Si APPLICATOR Refills: 0 Last:04-23-23 TOPICALLY DIRECTED FOR SKIN Expr:07-22-23 TEAR/WOUND CARES 4) ASPIRIN 81MG CHEW TAB Qty: 108 for 90 ACTIVE Issu:04-03-23 days Sig: CHEW ONE TABLET BY MOUTH Refills: 3 Last:04-04-23 EVERY DAY TO PREVENT BLOOD CLOTS Expr:04-03-24 5) CARBOXYMETHYLCELLULOSE NA 0.5% OPH SOLN ACTIVE Issu:04-03-23 Qty: 15 for 30 days Sig: INSTILL 1 Refills: 11 Last:04-04-23 DROP IN BOTH EYES FOUR TIMES A DAY Expr:04-03-24 NEEDED FOR DRY EYES 6) DULOXETINE HCL 60MG EC CAP Qty: 90 for ACTIVE Issu:04-03-23 90 days Sig: TAKE ONE CAPSULE BY Refills: 3 Last:04-04-23 MOUTH EVERY DAY REPLACES CITALOPRAM Expr:04-03-24 PRESCRIPTION 7) FINASTERIDE 5MG TAB Qty: 90 for 90 days ACTIVE Issu:04-03-23 Sig: TAKE ONE TABLET BY MOUTH EVERY Refills: 3 Last:04-04-23 DAY FOR PROSTATE Expr:04-03-24 8) GAUZE PAD 4IN X 4IN 8-PLY NONSTERILE ACTIVE Issu:04-23-23 Qty: 200 for 30 days Sig: USE GAUZE Refills: 11 Last:04-23-23 SPONGE/PAD TOPICALLY DIRECTED FOR Expr:04-23-24 WOUND CARE 9) LISINOPRIL 10MG TAB Qty: 90 for 90 days ACTIVE Issu:04-03-23 Sig: TAKE ONE TABLET BY MOUTH EVERY Refills: 3 Last:04-04-23 DAY FOR BLOOD PRESSURE Expr:04-03-24 10) MUPIROCIN 2% OINT Qty: 22 for 30 days ACTIVE Issu:04-04-23 Sig: APPLY THIN LAYER TOPICALLY TWICE Refills: 5 Last:04-05-23 A DAY FOR INFECTION Expr:04-04-24 11) PANTOPRAZOLE NA 40MG EC TAB Qty: 90 for ACTIVE Issu:04-03-23 90 days Sig: TAKE ONE TABLET BY MOUTH Refills: 3 Last:04-04-23 EVERY EVENING TO DECREASE STOMACH ACID Expr:04-03-24 -TAKE ON AN EMPTY STOMACH, AT LEAST ONE-HALF HOUR BEFORE EATING 12) ROSUVASTATIN CA 20MG TAB Qty: 90 for 90 ACTIVE Issu:04-03-23 days Sig: TAKE ONE TABLET BY MOUTH Refills: 3 Last:04-04-23 EVERY DAY FOR CHOLESTEROL Expr:04-03-24 13) SENNOSIDES 8.6MG TAB Qty: 200 for 90 ACTIVE Issu:04-03-23 days Sig: TAKE ONE TABLET BY MOUTH Refills: 3 Last:04-04-23 EVERY DAY AND TAKE ONE TABLET EVERY Expr:04-03-24 DAY NEEDED FOR CONSTIPATION 14) SODIUM CHLORIDE 0.9% PF INJ SYR 10ML ACTIVE Issu:04-23-23 Qty: 30 for 30 days Sig: INJECT 10 ML Refills: 0 Last:04-23-23 TOPICALLY DIRECTED FOR WOUND Expr:05-23-23 CLEANSING 15) TAMSULOSIN HCL 0.4MG CAP Qty: 180 for ACTIVE Issu:04-03-23 90 days Sig: TAKE TWO CAPSULES BY Refills: 3 Last:04-04-23 MOUTH AT BEDTIME Expr:04-03-24 Issue Date Status Last Fill Inactive Outpatient Medications Refills Expiration 1) AMLODIPINE BESYLATE 5MG TAB Qty: 90 for DISCONTINUED Issu:11-08-22 90 days Sig: TAKE ONE TABLET BY MOUTH Refills: 3 Last:11-08-22 EVERY DAY FOR BLOOD PRESSURE Expr:11-09-23 2) AMLODIPINE BESYLATE 5MG TAB Qty: 135 DISCONTINUED Issu:04-25-22 for 90 days Sig: TAKE ONE AND (EDIT) Last:04-26-22 ONE-HALF TABLETS BY MOUTH DAILY FOR Refills: 3 Expr:04-26-23 BLOOD PRESSURE 3) DULOXETINE HCL 60MG EC CAP Qty: 90 for DISCONTINUED Issu:11-08-22 90 days Sig: TAKE ONE CAPSULE BY Refills: 3 Last:01-11-23 MOUTH EVERY DAY REPLACES CITALOPRAM Expr:11-09-23 PRESCRIPTION 4) FINASTERIDE 5MG TAB Qty: 90 for 90 days DISCONTINUED Issu:11-08-22 Sig: TAKE ONE TABLET BY MOUTH EVERY Refills: 3 Last:01-11-23 DAY FOR PROSTATE Expr:11-09-23 5) HCTZ 25/LISINOPRIL 20MG TAB Qty: 90 for DISCONTINUED Issu:04-25-22 90 days Sig: TAKE 1 TABLET BY MOUTH Refills: 3 Last:04-26-22 EVERY MORNING Expr:04-26-23 6) MIRABEGRON 25MG SA TAB Qty: 30 for 30 DISCONTINUED Issu:11-08-22 days Sig: TAKE ONE TABLET BY MOUTH Refills: 0 Last:02-27-23 EVERY DAY Expr:11-09-23 7) PANTOPRAZOLE NA 40MG EC TAB Qty: 90 for DISCONTINUED Issu:11-08-22 90 days Sig: TAKE ONE TABLET BY MOUTH Refills: 3 Last:01-24-23 EVERY EVENING TO DECREASE STOMACH ACID Expr:11-09-23 -TAKE ON AN EMPTY STOMACH, AT LEAST ONE-HALF HOUR BEFORE EATING 8) TAMSULOSIN HCL 0.4MG CAP Qty: 180 for DISCONTINUED Issu:11-08-22 90 days Sig: TAKE TWO CAPSULES BY Refills: 3 Last:01-11-23 MOUTH AT BEDTIME Expr:11-09-23 23 Total Medications PHYSICAL EXAM VS: Temp: 98 F [36.7 C] (04/23/2023 13:10) BP: 132/75 (04/23/2023 13:10) Pulse:75 (04/23/2023 13:10) Resp: 18 (04/23/2023 13:10) Pain: 0 (04/23/2023 13:10) Weight: WEIGHTS IN LAST 6 MONTHS: 272.2 (APR 23, 2023@13:10:55) 265 (NOV 08, 2022@10:25:11) General: Sitting in exam room, no acute distress Pulmonary: Clear to auscultation bilaterally, nonlabored breathing Cardiovascular: Regular rate and rhythm, no extra sounds Extremities: Trace right lower extremity edema, no left lower extremity edema. Varicose veins noted bilaterally. Approximately 2 cm circular skin tear over right knee and 1 cm circular skin tear over right radial surface of hand. Gait: Patient is sitting in a wheelchair Neuro: Cranial nerves II through XII intact bilaterally, normal strength bilateral right upper extremities that there is a little bit of decreased strength with opposition of thumb and flexion of right second digit on the right. Normal strength at ankles, knees, hips. LABS and STUDIES WBC: 6.57 RBC: 4.61 HGB: 13.8 HCT: 40.4 L MCV: 87.6 MCH: 29.9 MCHC: 34.2 RDW: 13.1 PLT: 191 MPV: 11.0 H /es/ BRINA BIRMINGHAM MD PHYSICIAN, [facility] Signed: 04/23/2023 15:47 05/21/2023 ADDENDUM STATUS: COMPLETED Yamilet, the patient's radiation monitor shows he has an irregular rhythm called atrial fibrilltion. The neurologist would like him to be on a special blood thinner called apixaban (and they have placed an anticoagulation consult to help with this). I'd like to chat with the patient and probably his daughter, Raine, who helps make decisions for him RE the blood thinner (I believe she is the default contact in CPRS). Can you see if they have any availability for me to call sometime Saturday morning (anytime between 10:00 am until noon). /corry BIRMINGHAM MD PHYSICIAN, [facility] Signed: 05/21/2023 16:22 Receipt Acknowledged By: 05/23/2023 08:58 /chadwick/ ERINN FLANNERY RN REGISTERED NURSE 05/23/2023 ADDENDUM STATUS: COMPLETED Spoke with Raine and she prefers a call 05/24/23 at 1000. Lead Business Systems Analyst shared it was to discuss anticoagulation. Lead Business Systems Analyst shared that an anticoag consult was already placed so she might be contacted by pharmacy. She said that the provider at the residential mentioned something to her about Vet being on a reflux/GERD medication. Raine was asked if Jennyfer has a history of stomach ulcers and was questioning the medication that the patient is on stating it's not a good penitentiary medication to be on and that it's a high dose. Raine was hoping to clarify this with Dr. Birmingham at the phone visit as well. /corry FLANNERY, ARCHIE REGISTERED NURSE Signed: 05/23/2023 09:02 Receipt Acknowledged By: * AWAITING SIGNATURE * BRINA BIRMINGHAM [facility]
--- OUTSIDE RECORDS SUMMARY | 2024-02-17 12:48 | XMS_ITS | Encounter Summary ---
Author Name [facility] [place] [facility] [place] [facility] [facility] [place] Address [address] [place] [address] Care Team Providers Care Quality Assurance Auditor Name Role Phone BRINA BIRMINGHAM Primary Care [...] PLATI LULA BLUE COMP Jul 22, 2016 [id number] [phone] JACK ZAMORA PATIENT ANTHEM [employer] [place] PREFERRED PROVIDER ORGANIZAT ION (PPO) PLATI NUM BLUE COMP Jul 22, 2016 [id number] [phone] JACK ZAMORA PATIENT ANTHEM [employer] [place] PREFERRED PROVIDER ORGANIZAT ION (PPO) PLATI NUM BLUE COMP Jul 22, 2016 [id number] [phone] JACK ZAMORA PATIENT [place] PREFERRED PROVIDER ORGANIZAT ION (PPO) PLATI NUM BLUE COMP Jul 22, 2016 [id number] [phone] JACK ZAMORA PATIENT BCBS [facility] (WNR) MEDICARE ADVANTAGE [facility] (WNR) Jul 22, 2016 [id number] [phone] JACK ZAMORA PATIENT BCBS [facility] (WNR) MEDICARE ADVANTAGE [facility] (WNR) Jul 22, 2016 [id number] [phone] JACK ZAMORA PATIENT MEDICARE (WNR) MEDICARE () PART A November 19, 2004 PART A [id number] [phone] JACK ZAMORA PATIENT MEDICARE (WNR) MEDICARE (M) PART B November 19, 2004 PART B [id number] JACK ZAMORA PATIENT PRIME THERAPEUTI CS RX PRESCRIPT ION BS [facility] Jul 22, 2016 [id number] [phone] JACK ZAMORA PATIENT Selected Encounter This section includes the information on record at [place] for the Encounter. Date/Time Encounter Type Encounter Description Reason Provider Source May 30, 2023 11:00 AM OFFICE O/P EST HI 40-54 MIN CARDIOLOGY ICD-10-CM I10 Essential (primary) hypertension DOROTEO RODRIGEZ [facility] Encounter Template Text not used by [place] Assessments - Encounter Diagnoses This section includes the primary and secondary diagnoses documented for the Encounter. Date/Time Primary/Secondary Diagnosis Diagnosis Name Provider Source May 30, 2023 12:01 PM PRIMARY Essential (primary) hypertension DOROTEO RODRIGEZ [facility] May 30, 2023 12:01 PM SECONDARY Cerebrovascular disease, unspecified DOROTEO RODRIGEZ [facility] May 30, 2023 12:01 PM SECONDARY Gastro-esophageal reflux disease without esophagitis DOROTEO RODRIGEZ [facility] May 30, 2023 12:01 PM SECONDARY Obstructive sleep apnea (adult) (pediatric) DOROTEO RODRIGEZ [facility] May 30, 2023 12:01 PM SECONDARY Paroxysmal atrial fibrillation DOROTEO RODRIGEZ [facility] Plan of Treatment: Future Appointments (+ 6 months) and Future Tests (+/- 45 days) The Plan of Treatment section includes future care activities for the patient from [facility] [place] [facility] This section includes future appointments and future orders which are active, pending or scheduled. Future Appointments This section includes appointments that were scheduled to occur 6 months from the date of the Encounter, up to a maximum of 20 appointments. The data comes from all [place] treatment facilities. Appointment Date/Time Appointment Type Appointme nt Facility Name Jun 04, 2023 04:47 PM [facility] Jun 05, 2023 08:16 PM AMBULATORY - NONE [facility] Jul 03, 2023 05:30 PM AMBULATORY - REHAB MEDICIN E [facility] Lab Results: +/- 30 days of the encounter This section includes the Chemistry and Hematology Lab Results on record with [place] for the patient. Radiology Reports and Pathology Reports are provided separately, in subsequent sections. Lab Results This section contains the Chemistry/Hematology Results that were resulted 30 days before or 30 daysafter the date of the Encounter. Date/Time Source Result Type Result - Unit Interpretation Reference Range Comment May 30, 2023 10:03 AM [facility] UREA NITROGEN Specimen Type: PLASMA No comment entered. Ordering Provider: CRISTIANE DASILVA Report Released Date/Time: May 28, 2023 09:36 AM Reporting Lab: [facility] [id number] Performing Lab: [facility] [id number] UREA NITROGEN 11 mg/dL 8-26 May 30, 2023 10:03 AM [facility] BNP Specimen Type: PLASMA No comment entered. Ordering Provider: CRISTIANE DASILVA Report Released Date/Time: May 28, 2023 09:36 AM Reporting Lab: [facility] [id number] Performing Lab: [facility] [id number] BNP 108 pg/mL H <99 May 30, 2023 10:03 AM [facility] CREATININE(INCLUDES EGFR) Specimen Type: PLASMA No comment entered. Ordering Provider: CRISTIANE DASILVA Report Released Date/Time: May 28, 2023 09:36 AM Reporting Lab: [facility] [phone] Performing Lab: [facility] [id number] CREATININE 0.8 mg/dL 0.7-1.2 .CREAT EGFR(CKD-EPI ) 88 >60 May 30, 2023 10:03 AM [facility] ELECTROLYTES/ANION GAP Specimen Type: PLASMA No comment entered. Ordering Provider: CRISTIANE DASILVA Report Released Date/Time: May 28, 2023 09:36 AM Reporting Lab: [facility] [address] [facility] [phone] Performing Lab: [facility] [id number] SODIUM 141 mmol/L 136-145 POTASSIUM 4.2 mmol/L 3.5-5.1 CHLORIDE 105 mmol/L 98-107 CO2 29 mmol/L 22-29 ANION GAP 7 mmol/L 5-15 Social History: Smoking Status (Most current) and Tobacco Use (All prior to encounter date) This section includes the most current, and the historical, smoking and tobacco- related health factors from the [place] facility where the Encounter took place. Current Smoking Status This section includes the most current smoking, or tobacco-related health factor, from the [place] facility where the Encounter took place. Date/Time Current Smoking Status Comment Facil ity Apr 23, 2023 01:00 PM VA-TOBACCO NEVER USED [facility] Tobacco Use History This section includes a history of the smoking, or tobacco-related health factors, that were collected on or before the date of the Encounter. The data comes from the [place] facility where the Encounter took place. Date/Time Smoking Status/Tobacco Use Comment F acility Apr 24, 2022 09:43 AM VA-TOBACCO FORMER USER [facility] Apr 24, 2022 09:43 AM VA-TOBACCO QUIT 15 YRS OR MORE [facility] Feb 23, 2021 11:00 AM VA-TOBACCO FORMER USER [facility] Feb 23, 2021 11:00 AM VA-TOBACCO QUIT 15 YRS OR MORE [facility] Aug 04, 2019 03:40 PM VA-TOBACCO FORMER USER [facility] Aug 04, 2019 03:40 PM VA-TOBACCO QUIT 15 YRS OR MORE [facility] Jul 28, 2018 10:03 AM VA-TOBACCO FORMER USER [facility] Jul 28, 2018 10:03 AM VA-TOBACCO QUIT 15 YRS OR MORE [facility] Sep 12, 2017 09:15 AM FORMER TOBACCO USE >1Y <7Y [facility] November 30, 2016 07:51 AM FORMER TOBACCO USER 7Y OR GREATE R [facility] Sep 19, 2015 11:18 AM FORMER TOBACCO USE >1Y <7Y [facility] December 03, 2014 07:58 AM FORMER TOBACCO USER 7Y OR GREATE R [facility] December 01, 2013 07:39 AM LIFETIME NON-TOBACCO USER [facility] May 07, 2012 07:53 AM FORMER TOBACCO USE >1Y <7Y [facility] Aug 01, 2011 08:59 AM FORMER TOBACCO USE >1Y <7Y [facility] Jul 24, 2010 07:49 AM CURRENT TOBACCO USER [facility] Aug 03, 2009 10:18 AM CURRENT TOBACCO USER [facility] Aug 23, 2008 07:54 AM CURRENT TOBACCO USER [facility] Aug 15, 2007 07:52 AM CURRENT TOBACCO USER [facility] 2006 07:43 AM FORMER TOBACCO USE >1Y <7Y [facility] Advance Directives: All historical and current Section Date Range: From patient's date of to the date document was created. This section includes ALL of a patient's completed or amended [place] Advance and Rescinded Directives. The entries below indicate that a directive exists for the patient, but an actual copy is not included with this document. The data comes from all [facility]. Date Advance Directives Provider Source Mar 20, 2023 ADVANCE DIRECTIVE DISCUSSION BERTRAND,ELY Lema [facility] Mar 20, 2023 ADVANCE DIRECTIVE ELY BERTRAND [facility] Aug 02, 2003 AD[facility]ANCE [facility] Radiology Reports: +/- 30 days of the [...] the Encounter. The data comes from all [place] treatment facilities. Date/Time Radiology Report Provider Source May 30, 2023 12:02 PM US CAROTID (BILATE RAL) (P): SHANTANU ZAMORA EVELYNE [id number] -[id number] M Exm Date: MAY 30, 2023@12:02 Req Phys: VINNIE,BRINA B Pat Loc: [facility] PACT PORTER 4D (Req'g Loc) Img Loc: Ultrasound Imaging Service: Unknown (Case [id number] COMPLETE) US CAROTID BILATERAL (US Detailed) CPT:73601 Reason for Study: History of CVA 01/2023, eval for carotid artery stenosis Clinical History: History of CVA 01/2023, eval for carotid artery stenosis Responsible provider name and phone number to notify for critical findings if other than user placing the order and pager listed below: User placing orders pager: [phone] LAST CREATININE 0.8 (11/08/22) Report Status: Verified Date Reported: MAY 30, 2023 Date Verified: MAY 30, 2023 Memory Care Director E-Sig:/ES/WANDA VALDEZ MD Report: Bilateral Carotid Artery [...] note that as May 11, 2022 the [facility] Non-invasive Vascular Lab has adopted the carotid artery stenosis Duplex criteria endorsed by Intersocietal Accreditation Commission(IAC). The changes in criteria may explain differences in the degree of stenosis when compared with prior exams. IWanda, have reviewed the images and report. Primary Interpreting Staff: WANDA VALDEZ MD, RADIOLOGIST (Memory Care Director) Primary Interpreting Resident: TORI ENNIS MD, INTERNATIONAL SALES REPRESENTATIVE /WANDA JIMENEZ [facility] May 30, 2023 12:01 PM US VENOUS INSUFFIC IENCY LOWER EXTREMITY (BILATERAL) (P): SHANTANU ZAMORA [id number] -1940 M Exm Date: MAY 30, 2023@12:01 Req Phys: BRINA BIRMINGHAM Pat Loc: [facility] PACT PORTER 4D (Req'g Loc) Img Loc: Ultrasound Imaging Service: Unknown (Case [id number] COMPLETE) US VENOUS EXTREMITY BILATERAL (US Detailed) CPT:87454 Reason for Study: Chronic RLE edema Clinical History: Chronic RLE swelling w/ evidence of b/l varicose veins. Eval for venous insufficiency and r/o DVT Responsible provider name and phone number to notify for critical findings if other than user placing the order and pager listed below: User placing orders pager: [phone] LAST CREATININE 0.8 (11/08/22) Report Status: Verified Date Reported: MAY 30, 2023 Date Verified: MAY 30, 2023 Memory Care Director E-Sig:/ES/VALENTIN BOYKIN MD Report: Lower Extremity Venous [...] Primary Interpreting Staff: VALENTIN BOYKIN MD, RADIOLOGIST (Memory Care Director) Primary Interpreting Resident: TORI ENNIS MD, INTERNATIONAL SALES REPRESENTATIVE /VALENTIN REDD [facility] Encounter Notes: All associated encounter notes This section contains the clinical notes associated to the Encounter. Date/Time Encounter Note(s) Provider Source May 30, 2023 09:42 AM CARDIOLOGY CONSULT: LOCAL TITLE: CARDIAC CONSULT STANDARD TITLE: CARDIOLOGY CONSULT DATE OF NOTE: MAY 30, 2023@09:42 ENTRY DATE: MAY 30, 2023@09:42:14 AUTHOR: DOROTEO RODRIGEZ EXP COSIGNER: URGENCY: STATUS: COMPLETED CARDIAC CONSULT Has ADDENDA Reason for consult: Atrial fibrillation HPI/ROS Mr. Zamora is a 82 year-old referred for atrial fibrillation. Pertinent PMH includes cognitive impairment, BPH, GERD, depression, hypertension, and recent left centrum semiovale stroke presents to phone clinic to discuss the patient's new diagnosis of atrial fibrillation. CARDIAC HISTORY: has no previous cardiac condition. This was obtained on his Zio patch to work-up the patient's history of stroke this summer. Neurology would like to place the patient on apixaban. I discussed risks and benefits of the apixaban with the daughter , Raine Zaidi, who agreed with starting apixaban and discontinuing aspirin. She is familiar with the medication as her partner also has atrial fibrillation that was complicated by a stroke. No significant history of bleeding issues with the patient. They are aware that he should seek emergency department care should he ever fall and hit his head. I will also place a EP consult to consider antiarrhythmic strategy given the patient's age and history of stroke. [place] is accompanied by his daughter today. He is currently living in an assisted living facility. He uses their step machine for 45 minutes on most days. Is able to walk to the dining room 3 times per day. He has history of falls with approximately 10 falls over the last year. He has had 1 fall in the last 2 months. He denies chest pain. Denies dyspnea, orthopnea or PND. Denies LH or dizziness. However, occasionally if he moves too quickly, he does have some LH for a few seconds. Denies palpitations. Denies weight gain or peripheral edema. SOCIAL HISTORY: , lives in assisted living SMOKER: none ETOH: none ILLICIT DRUGS: none REVIEW OF SYSTEMS: Constitutional: Weight stable, denies fatigue Eyes: Denies visual changes. Ear, nose, mouth, throat: No complaints. Cardiovascular: Chest pain as described in HPI. Denies palpitations, Respiratory: Shortness of breath/FREED as described in HPI. Denies cough, pleuritic pain, orthopnea or PND Gastrointestinal: Appetite good, denies heartburn and indigestion. Urinary: Denies incontinence, frequency, urgency, nocturia, pain, or discomfort. Skin: No rashes or lesions. Neurological: Denies lightheadedness or dizziness. Denies syncope or pre-syncope. Psychiatric: Denies memory loss or depression. Mood pleasant. Allergies: MORPHINE (Apr 24, 2021) Past Medical History - Computerized Problem list is source for: Active problems - Computerized Problem List is the source for the followin. Benign prostatic hyperplasia 2. Hypertension (SNOMED CT 74601168) 3. Gastroesophageal reflux disease - Also known hiatal hernia 4. Morbid obesity 5. 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 Osteoarthritis of hip - was evaluated by ortho 09/2017 and deferred surgery given weight 7. Mild cognitive impairment 8. Lumbosacral Radiculopathy (SCT 7348739) - At one point neurosurgery was planning for L2-S1 fusion with L3-5 laminectomies but this was cancelled 10/2021. - Has had improvement with duloxetine and use of Rollator 9. Depression (SCT 69622146) 10. Nocturia - Has long history of this, and previously followed with urology, last seeing them 2018 - Prior UA has been normal - Suspect largely driven by BPH +/- MEGHA 11. Obstructive sleep apnea syndrome - Suspected by pulm 2022, watchPAT pending 12. Paroxysmal Atrial Fibrillation (SCT [id number]) - Dx 04/2023 following CVA 01/2023 - Started apixaban 05/2023 Medications: Active Outpatient Medications (including Supplies): Active Outpatient [...] 12 ACTIVE HOURS TO PREVENT STROKES 4) APPLICATOR,COTTON TIP STERILE 1 APPLICATOR TOPICALLY ACTIVE DIRECTED FOR SKIN TEAR/WOUND CARES 5) CARBOXYMETHYLCELLULOSE NA 0.5% OPH SOLN INSTILL 1 ACTIVE DROP IN BOTH EYES FOUR TIMES A DAY NEEDED FOR DRY EYES 6) DRESS,MEPILEX BORDER FLEX 4X4IN #[id number] APPLY 1 ACTIVE DRESSING TOPICALLY EVERY DAY [...] EVERY ACTIVE (S) DAY FOR BLOOD PRESSURE 11) PANTOPRAZOLE NA [...] TWO CAPSULES BY MOUTH ACTIVE AT BEDTIME Vital Signs: - Blood Pressure: 137/65 - Pulse: 67 - Oxygen sat: 93% EXAM: General: appears alert, oriented and cooperative. Neck: Jugular venous pressure: normal Lungs: Clear to auscultation bilaterally Abdomen: Abdomen soft, non-tender, bowel sounds + Cardiovascular: RRR. No murmurs, gallops or rubs. Extremities: No cyanosis, clubbing or edema are noted. Neuro: Alert and oriented Skin: Warm & dry Recent Available Lab Results: - CREATININE 0.7 (04/23/23) - UREA NITROGEN 13 (04/23/23) - SODIUM 142 (04/23/23) - CHLORIDE 108 H (04/23/23) - POTASSIUM 4.1 (04/23/23) - CO2 26 (04/23/23) - GLUCOSE 97 (04/23/23) - No data available - TSH ____ - HEMOGLOBIN A1C 5.3 (04/23/23) - INR - NONE FOUND Lipid Profile: - CHOLESTEROL 108 (04/23/23) - HDL 38 L (04/23/23) - LDL CALCULATION 38 (04/23/23) - TRIGLYCERIDE____ - Collection DT Spec WBC HGB HCT PLT MCV 04/23/2023 15:10 BLOOD 6.57 13.8 40.4 L 191 87.6 11/08/2022 09:36 BLOOD 7.41 15.1 46.3 175 86.5 DIAGNOSTICS/IMAGING/SCORING [id number] Score: 5 (age, HTN, CVA) EK05/30/2023 Normal sinus rhythm with sinus arrhythmia Left anterior hemiblock moderate voltage criteria for LVH Event monitor (NeurOpticsopatch) ECG REPORT 14 day heart monitor April [...] occasional PVCs with a burden of 3% Echocardiogram: 02/16/2023 @ [facility] Summary: 1. Overall left ventricular systolic function was normal. Left ventricular ejection fraction was estimated to be in the range of 55% to 60% with normal wall motion. 2. The aortic valve is trileaflet, without evidence of stenosis or insufficiency. 3. Structurally normal mitral valve without stenosis or prolapse. No significant mitral regurgitation is seen. 4. The left atrium is normal in size and structure. Impression: Cardiology was asked to see this 82 year-old patient for atrial fibrillation. ECG shows normal sinus rhythm with left anterior hemiblock. Zio monitor shows AFib (10% burden) with suboptimal HR control. Echocardiogram demonstrates normal LV function w/EF 55 to 60% with no significant valvular disease. #1 Atrial fibrillation, paroxysmal -zio (Apr 23, 2023), 10% burden Zio shows low burden of 10% on government property inspector with longest episode of 12 hours. Average heart rate in Afib was 101, range 51-173. [id number] is elevated at 5, showing an increased stroke risk. Given he is asymptomatic, would recommend a rate control strategy. Since he has no chest pain or dyspnea on exertion, we do feel he needs a further ischemic evaluation at this time. Echocardiogram was unremarkable. TSH 1.57. Etiology of atrial fibrillation is unclear but likely due to age and/or possibly untreated sleep apnea. - Recommend initiating metoprolol for rate control. - [id number] Score is 5, therefore continue anticoagulation - Sleep Apnea evaluation has been ordered by his PCP. - Control/monitor blood pressure. - If he develops symptoms, refer patient to electrophysiology for consideration of rhythm control. #2 hypertension On Lisinopril and Amlodipine. Has good blood pressure control. #3 Hyperlipidemia On Rosuvastatin 20 mg. Lipid profile shows LDL 38. PLAN: 1. Metoprolol 25 mg twice daily EDUCATION We discussed risk factor modification for AFib including weight management, regular exercise, moderation of alcohol intake, control of blood pressure and treatment of any underlying MEGHA. ATRIAL FIBRILLATON brochure was given to . Today's consult and recommendations discussed with him in lay-terms and he is in agreement with the above plan. Patient's history, physical exam, laboratory/imaging findings were discussed and reviewed extensively with Dr. Lamberto Will who agrees with my plan. Thank you for referring this to cardiology. I spent 80 minutes reviewing prior notes in CPRS, reviewing/interpreting laboratory testing, and imaging studies with attending staff. I educated that patient on the management of Atrial fibrillation, hypertension, hyperlipidemia, CAD at length, including management with medications and follow-up plan. /chadwick/ JUSTIN HENRY CARDIOLOGY NURSE PRACTITIONER Signed: 05/30/2023 12:01 Receipt Acknowledged By: 05/30/2023 13:51 /chadwick/ JUSTINA WILL MD PHYSICIAN 05/30/2023 ADDENDUM STATUS: COMPLETED I saw and evaluated this patient with the nurse practitioner and agree with the assessment and plan. Cardiology was asked to consult on this patient regarding stroke and new diagnosis atrial fibrillation. This is an 82-year-old man who had a ischemic stroke in January 2023. ZIO monitor in April showed paroxysmal atrial fibrillation with a 10% burden and an elevated heart rate during episodes of A. fib. Care in the community echo shows a normal EF with no valve disease. EKG today shows sinus rhythm with PACs and left axis deviation. Impression and recommendations 1. Paroxysmal atrial fibrillation with no significant symptoms. This exercises 45 minutes a day without symptoms. EF is normal. [id number]-[id number] score is 5 and he is tolerating systemic anticoagulation. Agree with recommendation to add low-dose metoprolol for better rate control when he is in atrial fibrillation. Do not recommend rhythm control strategy at this time. Thank you for referring this pt to the consult service. Please page me at if you would like to discuss this case further. Thank you. /chadwick/ JUSTINA WILL MD PHYSICIAN Signed: 05/30/2023 13:53 DOROTEO RODRIGEZ [facility]
--- OUTSIDE RECORDS SUMMARY | 2024-02-17 12:48 | XMS_ITS | Encounter Summary ---
Author Name [facility] [place] [facility] [place] [facility] [place] Address [address] [place] [address] Care Team Providers Care Paper Sample Clerk Name Role Phone BRINA BIRMINGHAM Primary Care [...] PLATI LULA BLUE COMP Jul 22, 2016 [id number] [phone] JACK COHN PATIENT ANTHEM [place] PREFERRED PROVIDER ORGANIZAT ION (PPO) PLATI NUM BLUE COMP Jul 22, 2016 [id number] [phone] JACK COHN PATIENT ANTHEM [place] PREFERRED PROVIDER ORGANIZAT ION (PPO) PLATI NUM BLUE COMP Jul 22, 2016 [id number] [phone] JACK COHN PATIENT [place] PREFERRED PROVIDER ORGANIZAT ION (PPO) PLATI NUM BLUE COMP Jul 22, 2016 [id number] [phone] JACK COHN PATIENT [place] [facility] (WNR) MEDICARE ADVANTAGE [facility] (WNR) Jul 22, 2016 [id number] [phone] JACK COHN PATIENT [place] [facility] (WNR) MEDICARE ADVANTAGE [facility] (WNR) Jul 22, 2016 [id number] [phone] JACK COHN MEDICARE ([place]NR) MEDICARE ([place]) PART A November 19, 2004 PART A [id number] JACK COHN PATIENT MEDICARE (WNR) MEDICARE (M) PART B November 19, 2004 PART B [id number] [phone] JACK COHN PATIENT PRIME THERAPEUTI CS RX PRESCRIPT ION BCBS [facility] Jul 22, 2016 [id number] [phone] JACK COHN PATIENT Selected Encounter This section includes the information on record at [place] for the Encounter. Date/Time Encounter Type Encounter Description Reason Pro vider Source IHE Encounter Template Text not used by [place] Advance Directives: All historical and current Section Date Range: From patient's date of to the date document was created. This section includes ALL of a patient's completed or amended [place] Advance and Rescinded Directives. The entries below indicate that a directive exists for the patient, but an actual copy is not included with this document. The data comes from all [place] facilities. Date Advance Directives Provider Source Mar 20, 2023 ADVANCE DIRECTIVE DISCUSSION ELY BERTRAND [facility] Mar 20, 2023 ADVANCE DIRECTIVE ELY BERTRAND [facility] Aug 02, 2003 ADVANCE DIRECTIVE SHANDA CESAR [facility]
--- OUTSIDE RECORDS SUMMARY | 2024-02-17 12:49 | XMS_ITS | Encounter Summary ---
Author Name [facility] [place] [facility] [place] Address [address] [place] [address] Care Team Providers Care Ragman Name Role Phone BRINA BIRMINGHAM Primary Care [...] PLATI LULA BLUE COMP Jul 22, 2016 [id number] [phone] JACK COHN PATIENT ANTHEM [place] PREFERRED PROVIDER ORGANIZAT ION (PPO) PLATI NUM BLUE COMP Jul 22, 2016 [id number] [phone] JACK COHN PATIENT ANTHEM [place] PREFERRED PROVIDER ORGANIZAT ION (PPO) PLATI NUM BLUE COMP Jul 22, 2016 [id number] [phone] JACK COHN PATIENT BCBS [place] PREFERRED PROVIDER ORGANIZAT ION (PPO) PLATI NUM BLUE COMP Jul 22, 2016 [id number] [phone] JACK COHN PATIENT [place] [facility] (WNR) MEDICARE ADVANTAGE [facility] (WNR) Jul 22, 2016 [id number] [phone] JACK COHN PATIENT [place] [facility] (WNR) MEDICARE ADVANTAGE [facility] (WNR) Jul 22, 2016 [id number] [phone] JACK COHN MEDICARE ([place]NR) MEDICARE (M) PART A November 19, 2004 PART A [id number] JACK COHN PATIENT MEDICARE (WNR) MEDICARE (M) PART B November 19, 2004 PART B [id number] [phone] JACK COHN PATIENT PRIME THERAPEUTI CS RX PRESCRIPT ION BCBS [facility] Jul 22, 2016 [id number] [phone] JACK COHN PATIENT Selected Encounter This section includes the information on record at [place] for the Encounter. Date/Time Encounter Type Encounter Description Reason Pro vider Source Jun 03, 2023 12:39 PM Outpatient Encounter PRIMARY CARE/MEDICINE IHE Encounter Template Text not used by [place] Plan of Treatment: Future Appointments (+ 6 months) and Future Tests (+/- 45 days) The Plan of Treatment section includes future care activities for the patient from all [place] treatmentfacilities. This section includes future appointments and future orders which are active, pending or scheduled. Future Appointments This section includes appointments that were scheduled to occur 6 months from the date of the Encounter, up to a maximum of 20 appointments. The data comes from all [place] treatment facilities. Appointment Date/Time Appointment Type Appointme nt Facility Name Jun 04, 2023 04:47 PM AMBULATORY - NONE [facility] Jun 05, 2023 08:16 PM AMBULATORY - NONE [facility] Jul 03, 2023 05:30 PM AMBULATORY - REHAB [facility] Lab Results: +/- 30 days of the encounter This section includes the Chemistry and Hematology Lab Results on record with [place] for the patient. Radiology Reports and Pathology Reports are provided separately, in subsequent sections. Lab Results This section contains the Chemistry/Hematology Results that were resulted 30 days before or 30 daysafter the date of the Encounter. Date/Time Source Result Type Result - Unit Interpretation Reference Range Comment May 30, 2023 10:03 AM [facility] UREA NITROGEN Specimen Type: PLASMA No comment entered. Ordering Provider: CRISTIANE DASILVA Report Released Date/Time: May 28, 2023 09:36 AM Reporting Lab: [facility] [id number] Performing Lab: [facility] [id number] UREA NITROGEN 11 mg/dL 8-26 May 30, 2023 10:03 AM [facility] BNP Specimen Type: PLASMA No comment entered. Ordering Provider: CRISTIANE DASILVA Report Released Date/Time: May 28, 2023 09:36 AM Reporting Lab: [facility] [id number] Performing Lab: [facility] [id number] BNP 108 pg/mL H <99 May 30, 2023 10:03 AM [facility] CREATININE(INCLUDES EGFR) Specimen Type: PLASMA No comment entered. Ordering Provider: CRISTIANE DASILVA Report Released Date/Time: May 28, 2023 09:36 AM Reporting Lab: [facility] [id number] Performing Lab: [facility] [id number] CREATININE 0.8 mg/dL 0.7-1.2 .CREAT EGFR(CKD-EPI ) 88 >60 May 30, 2023 10:03 AM [facility] ELECTROLYTES/ANION GAP Specimen Type: PLASMA No comment entered. Ordering Provider: CRISTIANE DASILVA Report Released Date/Time: May 28, 2023 09:36 AM Reporting Lab: [facility] [id number] Performing Lab: [facility] [phone] SODIUM 141 mmol/L 136-145 POTASSIUM 4.2 mmol/L 3.5-5.1 CHLORIDE 105 mmol/L 98-107 CO2 29 mmol/L 22-29 ANION GAP 7 mmol/L 5-15 Social History: Smoking Status (Most current) and Tobacco Use (All prior to encounter date) This section includes the most current, and the historical, smoking and tobacco- related health factors from the [place] facility where the Encounter took place. Current Smoking Status This section includes the most current smoking, or tobacco-related health factor, from the [place] facility where the Encounter took place. Date/Time Current Smoking Status Comment Facil ity Apr 23, 2023 01:00 PM VA-TOBACCO NEVER USED [facility] Tobacco Use History This section includes a history of the smoking, or tobacco-related health factors, that were collected on or before the date of the Encounter. The data comes from the [place] facility where the Encounter took place. Date/Time Smoking Status/Tobacco Use Comment F acility Apr 24, 2022 09:43 AM VA-TOBACCO FORMER USER [facility] Apr 24, 2022 09:43 AM VA-TOBACCO QUIT 15 YRS OR MORE [facility] Feb 23, 2021 11:00 AM VA-TOBACCO FORMER USER [facility] Feb 23, 2021 11:00 AM VA-TOBACCO QUIT 15 YRS OR MORE [facility] Aug 04, 2019 03:40 PM VA-TOBACCO FORMER USER [facility] Aug 04, 2019 03:40 PM VA-TOBACCO QUIT 15 YRS OR MORE [facility] Jul 28, 2018 10:03 AM VA-TOBACCO FORMER USER [facility] Jul 28, 2018 10:03 AM VA-TOBACCO QUIT 15 YRS OR MORE [facility] Sep 12, 2017 09:15 AM FORMER TOBACCO USE >1Y <7Y [facility] November 30, 2016 07:51 AM FORMER TOBACCO USER 7Y OR GREATE R [facility] Sep 19, 2015 11:18 AM FORMER TOBACCO USE >1Y <7Y [facility] December 03, 2014 07:58 AM FORMER TOBACCO USER 7Y OR GREATE R [facility] December 01, 2013 07:39 AM LIFETIME NON-TOBACCO USER [facility] May 07, 2012 07:53 AM FORMER TOBACCO USE >1Y <7Y [facility] Aug 01, 2011 08:59 AM FORMER TOBACCO USE >1Y <7Y [facility] Jul 24, 2010 07:49 AM CURRENT TOBACCO USER [facility] Aug 03, 2009 10:18 AM CURRENT TOBACCO USER [facility] Aug 23, 2008 07:54 AM CURRENT TOBACCO USER [facility] Aug 15, 2007 07:52 AM CURRENT TOBACCO USER [facility] 2006 07:43 AM FORMER TOBACCO USE >1Y <7Y [facility] Advance Directives: All historical and current Section Date Range: From patient's date of to the date document was created. This section includes ALL of a patient's completed or amended [place] Advance and Rescinded Directives. The entries below indicate that a directive exists for the patient, but an actual copy is not included with this document. The data comes from all [place] facilities. Date Advance Directives Provider Source Mar 20, 2023 ADVANCE DIRECTIVE DISCUSSION ELY BERTRAND [facility] Mar 20, 2023 ADVANCE DIRECTIVE ELY BERTRAND [facility] Aug 02, 2003 ADVANCE DIRECTIVE SHANDA CESAR [facility] Radiology Reports: +/- 30 days of [...] the Encounter. The data comes from all [place] treatment facilities. Date/Time Radiology Report Provider Source May 30, 2023 12:02 PM US CAROTID (BILATE RAL) (P): SHANTANU COHN [id number] -[id number] M Exm Date: MAY 30, 2023@12:02 Req Phys: BRINA BIRMINGHAM Pat Loc: [facility]CT [facility] 4D (Req'g Loc) Img Loc: Ultrasound Imaging Service: Unknown (Case [id number] COMPLETE) US CAROTID BILATERAL (US Detailed) CPT:49309 Reason for Study: History of CVA 01/2023, eval for carotid artery stenosis Clinical History: History of CVA 01/2023, eval for carotid artery stenosis Responsible provider name and phone number to notify for critical findings if other than user placing the order and pager listed below: User placing orders pager: [phone] LAST CREATININE 0.8 (11/08/22) Report Status: Verified Date Reported: MAY 30, 2023 Date Verified: MAY 30, 2023 Floor Mechanic E-Sig:/ES/WANDA VALDEZ MD Report: Bilateral Carotid Artery [...] note that as May 11, 2022 the [facility] Non-invasive Vascular Lab has adopted the carotid artery stenosis Duplex criteria endorsed by Intersocietal Accreditation Commission(IAC). The changes in criteria may explain differences in the degree of stenosis when compared with prior exams. IWanda, have reviewed the images and report. Primary Interpreting Staff: WANDA VALDEZ MD, RADIOLOGIST (Floor Mechanic) Primary Interpreting Resident: TORI ENNIS MD, PROMPT CARE RN /WANDA JIMENEZ [facility] May 30, 2023 12:01 PM US VENOUS INSUFFIC IENCY LOWER EXTREMITY (BILATERAL) (P): SHANTANU COHN [id number] -1940 M Exm Date: MAY 30, 2023@12:01 Req Phys: BRINA BIRMINGHAM Pat Loc: [facility] PA[facility] 4D (Req'g Loc) Img Loc: Ultrasound Imaging Service: Unknown (Case [id number] COMPLETE) US VENOUS EXTREMITY BILATERAL (US Detailed) CPT:00789 Reason for Study: Chronic RLE edema Clinical History: Chronic RLE swelling w/ evidence of b/l varicose veins. Eval for venous insufficiency and r/o DVT Responsible provider name and phone number to notify for critical findings if other than user placing the order and pager listed below: User placing orders pager: [phone] LAST CREATININE 0.8 (11/08/22) Report Status: Verified Date Reported: MAY 30, 2023 Date Verified: MAY 30, 2023 Floor Mechanic E-Sig:/ES/VALENTIN BENAVIDEZ MD Report: Lower Extremity Venous Competency Ultrasound, [...] DVT in either lower extremity. I, Valentin Benavidez, have reviewed the images and report. Primary Interpreting Staff: VALENTIN BENAVIDEZ MD, RADIOLOGIST (Floor Mechanic) Primary Interpreting Resident: TORI ENNIS MD, PROMPT CARE RN /VALENTIN REDD [facility] Encounter Notes: All associated encounter notes This section contains the clinical notes associated to the Encounter. Date/Time Encounter Note(s) Provider Source Jun 03, 2023 12:39 PM LETTERS: LOCAL TITLE: FOLLOW UP RESULTS LETTER STANDARD TITLE: LETTERS DATE OF NOTE: JUN 03, 2023@12:39 ENTRY DATE: JUN 03, 2023@12:39:17 AUTHOR: BRINA BIRMINGHAM EXP COSIGNER: URGENCY: STATUS: COMPLETED [facility] [place] [address] May SHANTANU COHN [facility] [address] [facility] [address] [place]: I wanted to let you know that the ultrasound of your carotid arteries looked OK! Impression: 1. Right: Doppler velocity criteria correlate with a less than 50% stenosis of the internal carotid artery. 2. Left: Doppler velocity criteria correlate with a less than 50% stenosis of the internal carotid artery. I also wanted to let you know that the ultrasounds of your legs didn't show any blood clots, but the veins themselves are a bit old and less efficient at pushing blood back up to the heart than when you were younger. This is something we call venous insufficiency. There isn't anything you need to do for this other than keep your legs raised to prevent swelling or use compression stockings. 2. 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 Focal mildly elevated reflux times at the common femoral vein and the great saphenous vein at the knee. 3. Incompetent left leg veins: Focal mildly elevated reflux times at the common femoral vein and great saphenous vein at the mid calf. If you have any further questions or problems, please contact our nursing staff or me at the following number: [phone]. Sincerely, BRINA BIRMINGHAM MD PHYSICIAN, [facility] BRINA BIRMINGHAM [facility]
--- OUTSIDE RECORDS SUMMARY | 2024-02-17 12:49 | XMS_ITS | Encounter Summary ---
Author Name [facility] [place] [facility] [place] Address [address] [place] [address] Care Team Providers Care Digital Circuit Designer Name Role Phone BRINA BIRMINGHAM Primary Care [...] PLATI LULA BLUE COMP Jul 22, 2016 [id number] [phone] JACK COHN PATIENT ANTHEM BCBS [place] PREFERRED PROVIDER ORGANIZAT ION (PPO) PLATI NUM BLUE COMP Jul 22, 2016 [id number] [phone] JACK COHN PATIENT ANTHEM [place] PREFERRED PROVIDER ORGANIZAT ION (PPO) PLATI NUM BLUE COMP Jul 22, 2016 [id number] [phone] JACK COHN PATIENT [place] PREFERRED PROVIDER ORGANIZAT ION (PPO) PLATI NUM BLUE COMP Jul 22, 2016 [id number] [phone] JACK COHN PATIENT [place] [facility] (WNR) MEDICARE ADVANTAGE [facility] (WNR) Jul 22, 2016 [id number] [phone] JACK COHN [place] [facility] (WNR) MEDICARE ADVANTAGE [facility] (WNR) Jul 22, 2016 [id number] [phone] JACK COHN MEDICARE (WNR) MEDICARE (M) PART A November 19, 2004 PART A [id number] JACK COHN PATIENT MEDICARE (WNR) MEDICARE (M) PART B November 19, 2004 PART B [id number] [phone] JACK COHN PATIENT PRIME THERAPEUTI CS RX PRESCRIPT ION BCBS [facility] Jul 22, 2016 [place] [id number] [phone] JACK COHN PATIENT Selected Encounter This section includes the information on record at [place] for the Encounter. Date/Time Encounter Type Encounter Description Reason Pro vider Source December 19, 2023 09:26 AM Outpatient Encounter PRIMARY CARE/MEDICINE IHE Encounter Template Text not used by [place] Plan of Treatment: Future Appointments (+ 6 months) and Future Tests (+/- 45 days) The Plan of Treatment section includes future care activities for the patient from all [place] treatmentfacilities. This section includes future appointments and future orders which are active, pending or scheduled. Future Appointments This section includes appointments that were scheduled to occur 6 months from the date of the Encounter, up to a maximum of 20 appointments. The data comes from all [place] treatment facilities. Appointment Date/Time Appointment Type Appointme nt Facility Name Jan 06, 2024 09:30 AM [place] [place] [facility] Jan 07, 2024 09:00 AM AM[facility]ULATORY - MEDICINE [facility] Jan 30, 2024 07:45 AM AM[place] [place] [facility] Jan 30, 2024 10:30 AM [place]ATORY - [place] [facility] Feb 27, 2024 05:10 PM AM[place]ULATORY - [place] [facility] Lab Results: +/- 30 days of the encounter This section includes the Chemistry and Hematology Lab Results on record with [place] for the patient. Radiology Reports and Pathology Reports are provided separately, in subsequent sections. Lab Results This section contains the Chemistry/Hematology Results that were resulted 30 days before or 30 daysafter the date of the Encounter. Date/Time Source Result Type Result - Unit Interpretation Reference Range Comment Jan 06, 2024 09:29 AM [facility] BASIC METABOLIC PANEL+MG Specimen Type: PLASMA No comment entered. Ordering Provider: BRINA BIRMINGHAM Report Released Date/Time: December 19, 2023 12:41 PM Reporting Lab: [facility] [id number] Performing Lab: [facility] [id number] CREATININE 0.8 mg/dL 0.7-1.2 UREA NITROGEN 13 mg/dL 8-26 GLUCOSE 95 mg/dL 70-100 SODIUM 141 mmol/L 136-145 POTASSIUM 3.8 mmol/L 3.5-5.1 CHLORIDE 107 mmol/L 98-107 CO2 26 mmol/L 22-29 CALCIUM 9.5 mg/dL 8.4-10.2 MAGNESIUM 2.0 mg/dL 1.6-2.6 ANION GAP 8 mmol/L 5-15 .CREAT EGFR(CKD-EPI) 88 >60 December 19, 2023 09:17 AM [facility] B 12 Specimen Type: SERUM No comment entered. Ordering Provider: BRINA BIRMINGHAM Report Released Date/Time: December 18, 2023 02:26 PM Reporting Lab: [facility] [id number] Performing Lab: [facility] [id number] B 12 304 pg/mL 213-816 December 19, 2023 09:17 AM [facility] FOLATE Specimen Type: SERUM No comment entered. Ordering Provider: BRINA BIRMINGHAM Report Released Date/Time: December 18, 2023 02:26 PM Reporting Lab: [facility] [id number] Performing Lab: [facility] [phone] FOLATE 8.3 ng/mL >7.0 December 19, 2023 09:17 AM [facility] LIPID PANEL,NON-FASTING Specimen Type: PLASMA No comment entered. Ordering Provider: BRINA BIRMINGHAM Report Released Date/Time: December 18, 2023 02:26 PM Reporting Lab: [facility] [id number] Performing Lab: [facility] [id number] CHOLESTEROL 109 mg/dL <199 .HDL 43 mg/dL >40 LDL CALCULATION 45 mg/dL <99 VLDL CALCULATION 21 mg/dL <29 NON HDL CHOLESTEROL 66 mg/dL <129 TRIG(NON FASTING) 107 mg/dL <149 December 19, 2023 09:17 AM [facility] CBC Specimen Type: BLOOD No comment entered. Ordering Provider: BRINA BIRMINGHAM Report Released Date/Time: December 18, 2023 02:26 PM Reporting Lab: [facility] [id number] Performing Lab: [facility] [address] WBC 6.74 10*3/uL 4.0-11.0 RBC 4.45 10*6/uL L 4.6-6.2 HGB 11.6 g/dL L 13.5-17.9 HCT 36.7 L 41-54 MCV 82.5 fL 80-100 MCH 26.1 pg L 27-33 MCHC 31.6 g/dL L 32.0-37.5 PLT 188 10*3/uL 150-400 MPV 11.1 fL H 7.4-10.4 RDW 13.4 11.5-14.5 December 19, 2023 09:17 AM [facility] COMPREHENSIVE METABOLIC PANEL+MG Specimen Type: PLASMA No comment entered. Ordering Provider: BRINA BIRMINGHAM Report Released Date/Time: December 18, 2023 02:26 PM Reporting Lab: [facility] [phone] Performing Lab: [facility] [address] CREATININE 0.8 mg/dL 0.7-1.2 UREA NITROGEN 11 mg/dL 8-26 GLUCOSE 82 mg/dL 70-100 SODIUM 144 mmol/L 136-145 POTASSIUM 4.4 mmol/L 3.5-5.1 CHLORIDE 109 mmol/L H 98-107 CO2 26 mmol/L 22-29 CALCIUM 9.5 mg/dL 8.4-10.2 PROTEIN,TOTAL 7.0 g/dL 6.0-8.3 ALBUMIN 3.9 g/dL 3.5-5.2 BILIRUBIN, TOTAL 0.5 mg/dL 0.2-1.2 MAGNESIUM 2.1 mg/dL 1.6-2.6 ANION GAP 9 mmol/L 5-15 ALKALINE PHOSPHATASE 35 U/L L 40-150 ALT/SGPT 11 U/L <55 AST/SGOT 22 U/L <34 .CREAT EGFR(CKD-EPI) 88 >60 December 19, 2023 09:17 AM [facility] IRON GROUP Specimen Type: SERUM No comment entered. Ordering Provider: BRINA BIRMINGHAM Report Released Date/Time: December 19, 2023 12:41 PM Reporting Lab: [facility] [id number] Performing Lab: [facility] [address] IRON 34 ug/dL L 65-175 TIBC,CALCULATED 364 ug/dL 250-425 FERRITIN 11.9 ng/mL L 21.8-274.7 IRON SATURATION 9 L 20-50 TRANSFERRIN 291 mg/dL 163-382 Vital Signs: All taken on the encounter date This section contains inpatient and outpatient Vital Signs collected on the date of the Encounter. Date/Time Temperature Pulse Blood Pressure Respiratory Rate SP02 Pain Height Weight Body Mass Index Source December 19, 2023 12:35 PM 133/75 [facility] December 19, 2023 10:04 AM 97.2 58 143/75 16 92 0 290.5 40 [facility] Social History: Smoking Status (Most current) and Tobacco Use (All prior to encounter date) This section includes the most current, and the historical, smoking and tobacco- related health factors from the [place] facility where the Encounter took place. Current Smoking Status This section includes the most current smoking, or tobacco-related health factor, from the [place] facility where the Encounter took place. Date/Time Current Smoking Status Comment Leonard ity Apr 23, 2023 01:00 PM VA-TOBACCO NEVER USED [facility] Tobacco Use History This section includes a history of the smoking, or tobacco-related health factors, that were collected on or before the date of the Encounter. The data comes from the [place] facility where the Encounter took place. Date/Time Smoking Status/Tobacco Use Comment F acility Apr 24, 2022 09:43 AM VA-TOBACCO FORMER USER [facility] Apr 24, 2022 09:43 AM VA-TOBACCO QUIT 15 YRS OR MORE [facility] Feb 23, 2021 11:00 AM VA-TOBACCO FORMER USER [facility] Feb 23, 2021 11:00 AM VA-TOBACCO QUIT 15 YRS OR MORE [facility] Aug 04, 2019 03:40 PM VA-TOBACCO FORMER USER [facility] Aug 04, 2019 03:40 PM VA-TOBACCO QUIT 15 YRS OR MORE [facility] Jul 28, 2018 10:03 AM VA-TOBACCO FORMER USER [facility] Jul 28, 2018 10:03 AM VA-TOBACCO QUIT 15 YRS OR MORE [facility] Sep 12, 2017 09:15 AM FORMER TOBACCO USE >1Y <7Y [facility] November 30, 2016 07:51 AM FORMER TOBACCO USER 7Y OR GREATE R [facility] Sep 19, 2015 11:18 AM FORMER TOBACCO USE >1Y <7Y [facility] December 03, 2014 07:58 AM FORMER TOBACCO USER 7Y OR GREATE R [facility] December 01, 2013 07:39 AM LIFETIME NON-TOBACCO USER [facility] May 07, 2012 07:53 AM FORMER TOBACCO USE >1Y <7Y [facility] Aug 01, 2011 08:59 AM FORMER TOBACCO USE >1Y <7Y [facility] Jul 24, 2010 07:49 AM CURRENT TOBACCO USER [facility] Aug 03, 2009 10:18 AM CURRENT TOBACCO USER [facility] Aug 23, 2008 07:54 AM CURRENT TOBACCO USER [facility] Aug 15, 2007 07:52 AM CURRENT TOBACCO USER [facility] 2006 07:43 AM FORMER TOBACCO USE >1Y <7Y [facility] Advance Directives: All historical and current Section Date Range: From patient's date of to the date document was created. This section includes ALL of a patient's completed or amended [place] Advance and Rescinded Directives. The entries below indicate that a directive exists for the patient, but an actual copy is not included with this document. The data comes from all [place] facilities. Date Advance Directives Provider Source Mar 20, 2023 ADVANCE DIRECTIVE DISCUSSION ELY BERTRAND [facility] Mar 20, 2023 ADVANCE DIRECTIVE ELY BERTRAND [facility] Aug 02, 2003 ADVANCE DIRECTIVE SHANDA CESAR [facility] Encounter Notes: All associated encounter notes This section contains the clinical notes associated to the Encounter. Date/Time Encounter Note(s) Provider Source December 19, 2023 09:26 AM ADVANCE DIRECTIVE: LOCAL TITLE: AD NOTIFICATION AND SCREENING STANDARD TITLE: ADVANCE DIRECTIVE DATE OF NOTE: DECEMBER 19, 2023@09:26 ENTRY DATE: DECEMBER 19, 2023@09:26:37 AUTHOR: KEDAR RYAN EXP COSIGNER: URGENCY: STATUS: COMPLETED ADVANCE DIRECTIVE NOTIFICATION: Patient was given written notification of the following rights: 1. Accept or refuse any medical treatment. 2. Complete a durable power of employment attorney for health care. 3. Complete a living will. ADVANCE DIRECTIVE SCREENING: Does patient have an Advance Directive? The patient has an Advance Directive. Does the patient wish to make any changes or revoke their current Advance Directive? No changes requested at this time. /chadwick/ KEDAR RYAN MSA Signed: 12/19/2023 09:26 KEDAR RYAN [facility]
--- OUTSIDE RECORDS SUMMARY | 2024-02-17 12:49 | XMS_ITS | Encounter Summary ---
Author Name [facility] [place] Address [address] [place] [address] Care Team Providers Care Corn Crop Supervisor Name Role Phone BRINA BIRMINGHAM Primary Care [...] PLATI LULA BLUE COMP Jul 22, 2016 [id number] [phone] JACK COHN PATIENT ANTHEM [place] PREFERRED PROVIDER ORGANIZAT ION (PPO) PLATI NUM BLUE COMP Jul 22, 2016 [id number] [phone] JACK COHN PATIENT ANTHEM [place] PREFERRED PROVIDER ORGANIZAT ION (PPO) PLATI NUM BLUE COMP Jul 22, 2016 [id number] [phone] JACK COHN PATIENT [place] PREFERRED PROVIDER ORGANIZAT ION (PPO) PLATI NUM BLUE COMP Jul 22, 2016 [id number] [phone] JACK COHN PATIENT [place] [facility] (WNR) MEDICARE ADVANTAGE [facility] (WNR) Jul 22, 2016 [id number] [phone] JACK COHN [place] [facility] ([place]NR) MEDICARE ADVANTAGE [facility] (WNR) Jul 22, 2016 [id number] [phone] JACK COHN MEDICARE (WNR) MEDICARE (M) PART A November 19, 2004 PART A [id number] [phone] JACK COHN PATIENT MEDICARE (WNR) MEDICARE (M) PART B November 19, 2004 PART B [id number] JACK COHN PATIENT PRIME THERAPEUTI CS RX PRESCRIPT ION BCBS [facility] Jul 22, 2016 [place] [id number] [phone] JACK COHN PATIENT Selected Encounter This section includes the information on record at [place] for the Encounter. Date/Time Encounter Type Encounter Description Reason Pro vider Source December 17, 2023 09:18 AM Outpatient Encounter PRIMARY CARE/MEDICINE IHE Encounter Template Text not used by [place] Plan of Treatment: Future Appointments (+ 6 months) and Future Tests (+/- 45 days) The Plan of Treatment section includes future care activities for the patient from all [place] treatmentfacilities. This section includes future appointments and future orders which are active, pending or scheduled. Future Appointments This section includes appointments that were scheduled to occur 6 months from the date of the Encounter, up to a maximum of 20 appointments. The data comes from all [place] treatment facilities. Appointment Date/Time Appointment Type Appointme nt Facility Name December 19, 2023 09:30 AM AMBULATORY - NONE [facility] December 19, 2023 10:15 AM AMBULATORY - MEDICINE [facility] December 19, 2023 10:45 AM AMBULATORY - SURGERY [facility] Jan 06, 2024 09:30 AM AMBULATORY - NONE [facility] Jan 07, 2024 09:00 AM AMBULATORY - MEDICINE [facility] Jan 30, 2024 07:45 AM AMBUL[facility]ORY - SURGERY [facility] Jan 30, 2024 10:30 AM [place] [facility] Feb 27, 2024 05:10 PM [facility] Lab Results: +/- 30 days of the encounter This section includes the Chemistry and Hematology Lab Results on record with [place] for the patient. Radiology Reports and Pathology Reports are provided separately, in subsequent sections. Lab Results This section contains the Chemistry/Hematology Results that were resulted 30 days before or 30 daysafter the date of the Encounter. Date/Time Source Result Type Result - Unit Interpretation Reference Range Comment Jan 06, 2024 09:29 AM [facility] BASIC METABOLIC PANEL+MG Specimen Type: PLASMA No comment entered. Ordering Provider: BRINA BIRMINGHAM Report Released Date/Time: December 19, 2023 12:41 PM Reporting Lab: [facility] [id number] Performing Lab: [facility] [address] CREATININE 0.8 mg/dL 0.7-1.2 UREA NITROGEN 13 mg/dL 8-26 GLUCOSE 95 mg/dL 70-100 SODIUM 141 mmol/L 136-145 POTASSIUM 3.8 mmol/L 3.5-5.1 CHLORIDE 107 mmol/L 98-107 CO2 26 mmol/L 22-29 CALCIUM 9.5 mg/dL 8.4-10.2 MAGNESIUM 2.0 mg/dL 1.6-2.6 ANION GAP 8 mmol/L 5-15 .CREAT EGFR(CKD-EPI) 88 >60 December 19, 2023 09:17 AM [facility] FOLATE Specimen Type: SERUM No comment entered. Ordering Provider: BRINA BIRMINGHAM Report Released Date/Time: December 18, 2023 02:26 PM Reporting Lab: [facility] [id number] Performing Lab: [facility] [address] FOLATE 8.3 ng/mL >7.0 December 19, 2023 09:17 AM [facility] B 12 Specimen Type: SERUM No comment entered. Ordering Provider: BRINA BIRMINGHAM Report Released Date/Time: December 18, 2023 02:26 PM Reporting Lab: [facility] [id number] Performing Lab: [facility] [address] B 12 304 pg/mL 213-816 December 19, 2023 09:17 AM [facility] LIPID PANEL,NON-FASTING Specimen Type: PLASMA No comment entered. Ordering Provider: BRINA BIRMINGHAM Report Released Date/Time: December 18, 2023 02:26 PM Reporting Lab: [facility] [address] Performing Lab: [facility] [address] CHOLESTEROL 109 mg/dL <199 .HDL 43 mg/dL >40 LDL CALCULATION 45 mg/dL <99 VLDL CALCULATION 21 mg/dL <29 NON HDL CHOLESTEROL 66 mg/dL <129 TRIG(NON FASTING) 107 mg/dL <149 December 19, 2023 09:17 AM [facility] CBC Specimen Type: BLOOD No comment entered. Ordering Provider: BRINA BIRMINGHAM Report Released Date/Time: December 18, 2023 02:26 PM Reporting Lab: [facility] [address] Performing Lab: [facility] [address] WBC 6.74 10*3/uL 4.0-11.0 RBC 4.45 10*6/uL L 4.6-6.2 HGB 11.6 g/dL L 13.5-17.9 HCT 36.7 L 41-54 MCV 82.5 fL 80-100 MCH 26.1 pg L 27-33 MCHC 31.6 g/dL L 32.0-37.5 PLT 188 10*3/uL 150-400 MPV 11.1 fL H 7.4-10.4 RDW 13.4 11.5-14.5 December 19, 2023 09:17 AM [facility] COMPREHENSIVE METABOLIC PANEL+MG Specimen Type: PLASMA No comment entered. Ordering Provider: BRINA BIRMINGHAM Report Released Date/Time: December 18, 2023 02:26 PM Reporting Lab: [facility] [id number] Performing Lab: [facility] [address] CREATININE 0.8 mg/dL 0.7-1.2 UREA NITROGEN 11 [...] 88 >60 December 19, 2023 09:17 AM [facility] IRON GROUP Specimen Type: SERUM No comment entered. Ordering Provider: BRINA BIRMINGHAM Report Released Date/Time: December 19, 2023 12:41 PM Reporting Lab: [facility] [id number] Performing Lab: [facility] [address] IRON 34 ug/dL L 65-175 TIBC,CALCULATED 364 ug/dL 250-425 FERRITIN 11.9 ng/mL L 21.8-274.7 IRON SATURATION 9 L 20-50 TRANSFERRIN 291 mg/dL 163-382 Social History: Smoking Status (Most current) and Tobacco Use (All prior to encounter date) This section includes the most current, and the historical, smoking and tobacco- related health factors from the [place] facility where the Encounter took place. Current Smoking Status This section includes the most current smoking, or tobacco-related health factor, from the [place] facility where the Encounter took place. Date/Time Current Smoking Status Comment Leonard cárdenas Apr 23, 2023 01:00 PM VA-TOBACCO NEVER USED [facility] Tobacco Use History This section includes a history of the smoking, or tobacco-related health factors, that were collected on or before the date of the Encounter. The data comes from the [place] facility where the Encounter took place. Date/Time Smoking Status/Tobacco Use Comment [facility]ility Apr 24, 2022 09:43 AM VA-TOBACCO FORMER USER [facility] Apr 24, 2022 09:43 AM VA-TOBACCO QUIT 15 YRS OR MORE [facility] Feb 23, 2021 11:00 AM VA-TOBACCO FORMER USER [facility] Feb 23, 2021 11:00 AM VA-TOBACCO QUIT 15 YRS OR MORE [facility] Aug 04, 2019 03:40 PM VA-TOBACCO FORMER USER [facility] Aug 04, 2019 03:40 PM VA-TOBACCO QUIT 15 YRS OR MORE [facility] Jul 28, 2018 10:03 AM VA-TOBACCO FORMER USER [facility] Jul 28, 2018 10:03 AM VA-TOBACCO QUIT 15 YRS OR MORE [facility] Sep 12, 2017 09:15 AM FORMER TOBACCO USE >1Y <7Y [facility] November 30, 2016 07:51 AM FORMER TOBACCO USER 7Y OR GREATE R [facility] Sep 19, 2015 11:18 AM FORMER TOBACCO USE >1Y <7Y [facility] December 03, 2014 07:58 AM FORMER TOBACCO USER 7Y OR GREATE R [facility] December 01, 2013 07:39 AM LIFETIME NON-TOBACCO USER [facility] May 07, 2012 07:53 AM FORMER TOBACCO USE >1Y <7Y [facility] Aug 01, 2011 08:59 AM FORMER TOBACCO USE >1Y <7Y [facility] Jul 24, 2010 07:49 AM CURRENT TOBACCO USER [facility] Aug 03, 2009 10:18 AM CURRENT TOBACCO USER [facility] Aug 23, 2008 07:54 AM CURRENT TOBACCO USER [facility] Aug 15, 2007 07:52 AM CURRENT TOBACCO USER [facility] 2006 07:43 AM FORMER TOBACCO USE >1Y <7Y [facility] Advance Directives: All historical and current Section Date Range: From patient's date of to the date document was created. This section includes ALL of a patient's completed or amended [place] Advance and Rescinded Directives. The entries below indicate that a directive exists for the patient, but an actual copy is not included with this document. The data comes from all [place] facilities. Date Advance Directives Provider Source Mar 20, 2023 ADVANCE DIRECTIVE DISCUSSION ELY BERTRAND [facility] Mar 20, 2023 ADVANCE DIRECTIVE ELY BERTRAND [facility] Aug 02, 2003 ADVANCE DIRECTIVE SHANDA CESAR [facility] Encounter Notes: All associated encounter notes This section contains the clinical notes associated to the Encounter. Date/Time Encounter Note(s) Provider Source December 17, 2023 09:18 AM HOME HEALTH REFERR MT NOTE: LOCAL TITLE: [facility] CARE STANDARD TITLE: HOME HEALTH REFERRAL NOTE DATE OF NOTE: DECEMBER 17, 2023@09:18 ENTRY DATE: DECEMBER 17, 2023@09:20:43 AUTHOR: STAN PERALES EXP COSIGNER: URGENCY: STATUS: COMPLETED HOME HEALTH CARE CERTIFICATION AND PLAN OF CARE SIGNED BY: Dr. birmingham.......[facility] [place] Certification period From: November To: Jan /chadwick/ STAN PERALES Advanced MSA Signed: 12/17/2023 09:23 STAN PERALES [facility]
--- OUTSIDE RECORDS SUMMARY | 2024-02-17 12:49 | XMS_ITS | Encounter Summary ---
Author Name [facility] Organization [facility] Address [address] [place] [address] Care Team Providers Care Polisher And Buffer Name Role Phone BRINA BIRMINGHAM Primary Care [...] PLATI LULA BLUE COMP Jul 22, 2016 [id number] [phone] JACK COHN PATIENT ANTHEM [place] PREFERRED PROVIDER ORGANIZAT ION (PPO) PLATI NUM BLUE COMP Jul 22, 2016 [id number] [phone] JACK COHN PATIENT ANTHEM [place] PREFERRED PROVIDER ORGANIZAT ION (PPO) PLATI NUM BLUE COMP Jul 22, 2016 [id number] [phone] JACK COHN PATIENT [place] PREFERRED PROVIDER ORGANIZAT ION (PPO) PLATI NUM BLUE COMP Jul 22, 2016 [id number] [phone] JACK COHN PATIENT [place] [facility] (WNR) MEDICARE ADVANTAGE [facility] (WNR) Jul 22, 2016 [id number] [phone] JACK COHN [place]IENT [place] [facility] ([place]NR) MEDICARE ADVANTAGE [facility] (WNR) Jul 22, 2016 [id number] [phone] JACK COHN MEDICARE (WNR) MEDICARE (M) PART A November 19, 2004 PART A [id number] JACK COHN MEDICARE ([place]NR) MEDICARE (M) PART B November 19, 2004 PART B [id number] JACK COHN PATIENT PRIME THERAPEUTI CS RX PRESCRIPT ION BCBS [facility] Jul 22, 2016 [id number] JACK COHN PATIENT Selected Encounter This section includes the information on record at ME for the Encounter. Date/Time Encounter Type Encounter Description Reason Provider Source Jun 04, 2023 04:47 PM Outpatient Encounter ADMIN PAT ACTIVTIES (MASNONCT) DOROTEO HANSEN Chitra Encounter Template Text not used by ME Plan of Treatment: Future Appointments (+ 6 months) and Future Tests (+/- 45 days) The Plan of Treatment section includes future care activities for the patient from all ME treatmentfacilities. This section includes future appointments and future orders which are active, pending or scheduled. Future Appointments This section includes appointments that were scheduled to occur 6 months from the date of the Encounter, up to a maximum of 20 appointments. The data comes from all ME treatment facilities. Appointment Date/Time Appointment Type Appointme nt Facility Name Jun 05, 2023 08:16 PM AMBULATORY - NONE [facility] Jul 03, 2023 05:30 PM AMBULATORY - REHAB [facility] Lab Results: +/- 30 days of the encounter This section includes the Chemistry and Hematology Lab Results on record with ME for the patient. Radiology Reports and Pathology Reports are provided separately, in subsequent sections. Lab Results This section contains the Chemistry/Hematology Results that were resulted 30 days before or 30 daysafter the date of the Encounter. Date/Time Source Result Type Result - Unit Interpretation Reference Range Comment May 30, 2023 10:03 AM [facility] BNP Specimen Type: PLASMA No comment entered. Ordering Provider: CRISTIANE DASILVA Report Released Date/Time: May 28, 2023 09:36 AM Reporting Lab: [facility] [id number] Performing Lab: [facility] [id number] BNP 108 pg/mL H <99 May 30, 2023 10:03 AM [facility] CREATININE(INCLUDES EGFR) Specimen Type: PLASMA No comment entered. Ordering Provider: CRISTIANE DASILVA Report Released Date/Time: May 28, 2023 09:36 AM Reporting Lab: [facility] [id number] Performing Lab: [facility] [id number] CREATININE 0.8 mg/dL 0.7-1.2 .CREAT EGFR(CKD-EPI ) 88 >60 May 30, 2023 10:03 AM [facility] UREA NITROGEN Specimen Type: PLASMA No comment entered. Ordering Provider: CRISTIANE DASILVA Report Released Date/Time: May 28, 2023 09:36 AM Reporting Lab: [facility] [id number] Performing Lab: [facility] [id number] UREA NITROGEN 11 mg/dL 8-26 May 30, 2023 10:03 AM [facility] ELECTROLYTES/ANION GAP Specimen Type: PLASMA No comment entered. Ordering Provider: CRISTIANE DASILVA Report Released Date/Time: May 28, 2023 09:36 AM Reporting Lab: [facility] [id number] Performing Lab: [facility] [phone] SODIUM 141 mmol/L 136-145 POTASSIUM 4.2 mmol/L 3.5-5.1 CHLORIDE 105 mmol/L 98-107 CO2 29 mmol/L 22-29 ANION GAP 7 mmol/L 5-15 Social History: Smoking Status (Most current) and Tobacco Use (All prior to encounter date) This section includes the most current, and the historical, smoking and tobacco- related health factors from the ME facility where the Encounter took place. Current Smoking Status This section includes the most current smoking, or tobacco-related health factor, from the ME facility where the Encounter took place. Date/Time Current Smoking Status Comment Facil ity Apr 23, 2023 01:00 PM VA-TOBACCO NEVER USED [facility] Tobacco Use History This section includes a history of the smoking, or tobacco-related health factors, that were collected on or before the date of the Encounter. The data comes from the ME facility where the Encounter took place. Date/Time Smoking Status/Tobacco Use Comment F acility Apr 24, 2022 09:43 AM VA-TOBACCO FORMER USER [facility] Apr 24, 2022 09:43 AM VA-TOBACCO QUIT 15 YRS OR MORE [facility] Feb 23, 2021 11:00 AM VA-TOBACCO FORMER USER [facility] Feb 23, 2021 11:00 AM VA-TOBACCO QUIT 15 YRS OR MORE [facility] Aug 04, 2019 03:40 PM VA-TOBACCO FORMER USER [facility] Aug 04, 2019 03:40 PM VA-TOBACCO QUIT 15 YRS OR MORE [facility] Jul 28, 2018 10:03 AM VA-TOBACCO FORMER USER [facility] Jul 28, 2018 10:03 AM VA-TOBACCO QUIT 15 YRS OR MORE [facility] Sep 12, 2017 09:15 AM FORMER TOBACCO USE >1Y <7Y [facility] November 30, 2016 07:51 AM FORMER TOBACCO USER 7Y OR GREATE R [facility] Sep 19, 2015 11:18 AM FORMER TOBACCO USE >1Y <7Y [facility] December 03, 2014 07:58 AM FORMER TOBACCO USER 7Y OR GREATE R [facility] December 01, 2013 07:39 AM LIFETIME NON-TOBACCO USER [facility] May 07, 2012 07:53 AM FORMER TOBACCO USE >1Y <7Y [facility] Aug 01, 2011 08:59 AM FORMER TOBACCO USE >1Y <7Y [facility] Jul 24, 2010 07:49 AM CURRENT TOBACCO USER [facility] Aug 03, 2009 10:18 AM CURRENT TOBACCO USER [facility] Aug 23, 2008 07:54 AM CURRENT TOBACCO USER [facility] Aug 15, 2007 07:52 AM CURRENT TOBACCO USER [facility] 2006 07:43 AM FORMER TOBACCO USE >1Y <7Y [facility] Advance Directives: All historical and current [...] 20, 2023 ADVANCE DIRECTIVE DISCUSSION ELY BERTRAND [facility] Mar 20, 2023 ADVANCE DIRECTIVE ELY BERTRAND [facility] Aug 02, 2003 ADVANCE DIRECTIVE SHANDA CESAR [facility] Radiology Reports: +/- 30 days of the [...] the Encounter. The data comes from all [place] treatment facilities. 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, eval for carotid artery stenosis Clinical History: History of CVA 01/2023, eval for carotid artery stenosis Responsible provider name and phone number to notify for critical findings if other than user placing the order and pager listed below: User placing orders pager: [phone] LAST CREATININE 0.8 (11/08/22) Report Status: Verified Date Reported: MAY 30, 2023 Date Verified: MAY 30, 2023 Heliotherapist E-Sig:/ES/WANDA VALDEZ MD Report: Bilateral Carotid Artery [...] note that as May 11, 2022 the [facility] Non-invasive Vascular Lab has adopted the carotid artery stenosis Duplex criteria endorsed by Intersocietal Accreditation Commission(IAC). The changes in criteria may explain differences in the degree of stenosis when compared with prior exams. IWanda, have reviewed the images and report. Primary Interpreting Staff: WANDA VALDEZ MD, RADIOLOGIST (Heliotherapist) Primary Interpreting Resident: TORI ENNIS MD, PRACTICING UROLOGIST /WANDA JIMENEZ [facility] May 30, 2023 12:01 PM US VENOUS INSUFFIC IENCY LOWER EXTREMITY (BILATERAL) (P): SHANTANU COHN [id number] -[id number] M Exm Date: MAY 30, 2023@12:01 Req Phys: BRINA BIRMINGHAM Pat Loc: [facility] PACT PORTER 4D (Req'g Loc) Img Loc: Ultrasound Imaging Service: Unknown (Case [id number] COMPLETE) US VENOUS EXTREMITY BILATERAL (US Detailed) CPT:23418 Reason for Study: Chronic RLE edema Clinical History: Chronic RLE swelling w/ evidence of b/l varicose veins. Eval for venous insufficiency and r/o DVT Responsible provider name and phone number to notify for critical findings if other than user placing the order and pager listed below: User placing orders pager: [phone] LAST CREATININE 0.8 (11/08/22) Report Status: Verified Date Reported: MAY 30, 2023 Date Verified: MAY 30, 2023 Heliotherapist E-Sig:/ES/VALENTIN BOYKIN MD Report: Lower Extremity Venous [...] Primary Interpreting Staff: VALENTIN BOYKIN MD, RADIOLOGIST (Heliotherapist) Primary Interpreting Resident: TORI ENNIS MD, PRACTICING UROLOGIST /VALENTIN REDD [facility] Encounter Notes: All associated encounter notes This section contains the clinical notes associated to the Encounter. Date/Time Encounter Note(s) Provider Source Jun 06, 2023 12:26 PM ADDENDUM: LOCAL TITLE: Addendum STANDARD TITLE: ADDENDUM DATE OF NOTE: JUN 06, 2023@12:26:18 ENTRY DATE: JUN 06, 2023@12:26:20 AUTHOR: JULI LAFLEUR EXP COSIGNER: URGENCY: STATUS: COMPLETED Goldsmith was seen in an outside ER on: 06/03/2023 Diagnosis: Closed in injury Medical records have been uploaded to the patient's chart and are available for viewing in [facility]. Please review for plan of care and any follow-up needed. /corry Lafleur RADIATION PHYSICIST CNOR enamel pulverizer [employer] Signed: 06/06/2023 12:27 Receipt Acknowledged By: 06/06/2023 13:01 /chadwick/ ERINN FLANNERY RN REGISTERED NURSE 06/07/2023 09:21 /es/ BRINA BIRMINGHAM MD PHYSICIAN, [facility] --- Original Document --- 06/03/23 [facility] SELF PRESENTING CARE COORD PLAN NOTE: Emergency Notification Intake Date Presenting to the Facility: May Method of Contact: Notified from [employer] worklist Notification ID: [id number] [facility] [place] Referral #: [facility] Name: Hospital: [facility] N[facility]ED [facility] Address: [address] [place] [address] City: [place] State: [place] Zip Code: [address] Phone : [facility] Point of Contact: Name: [facility] Chief complaint: FALL Primary Diagnosis: Disposition Discharged Date of discharge: May Discharge to home /corry REYNOLDS [employer] MASKER Signed: 06/04/2023 16:53 Receipt Acknowledged By: 06/05/2023 09:44 /es/ GALLITO SINGLETARY RN enamel pulverizer [employer] for DOROTEO HANSEN 06/05/2023 ADDENDUM STATUS: COMPLETED Co-signing the [facility] Nurse covering this episode of care/facility. /corry SINGLETARY RN enamel pulverizer [employer] Signed: 06/05/2023 09:44 Receipt Acknowledged By: 06/06/2023 12:17 /chadwick/ Juli Lafleur RADIATION PHYSICIST CNOR enamel pulverizer [employer] JULI LAFLEUR [facility] Jun 05, 2023 09:44 AM ADDENDUM: LOCAL TITLE: Addendum STANDARD TITLE: ADDENDUM DATE OF NOTE: JUN 05, 2023@09:44:34 ENTRY DATE: JUN 05, 2023@09:44:36 AUTHOR: GALLITO SINGLETARY EXP COSIGNER: URGENCY: STATUS: COMPLETED Co-signing the [facility] Nurse covering this episode of care/facility. /corry SINGLETARY RN enamel pulverizer [employer] Signed: 06/05/2023 09:44 Receipt Acknowledged By: 06/06/2023 12:17 /corry Lafleur RN BSN CNOR enamel pulverizer [employer] --- Original Document --- 06/03/23 [facility] SELF PRESENTING CARE COORD PLAN NOTE: Emergency Notification Intake Date Presenting to the Facility: May Method of Contact: Notified from [employer] worklist Notification ID: [id number] [facility] [place] Referral #: [facility] Name: Hospital: [facility] N[facility]ED [facility] Address: [address] [place] [address] City: [place] State: [place] Zip Code: [address] Phone : [facility] Point of Contact: Name: [facility] Chief complaint: FALL Primary Diagnosis: Disposition Discharged Date of discharge: May Discharge to home /chadwick/ CHINA [employer]ER Signed: 06/04/2023 16:53 Receipt Acknowledged By: 06/05/2023 09:44 /corry SINGLETARY RN enamel pulverizer [employer] for DOROTEO HANSEN 06/06/2023 ADDENDUM STATUS: COMPLETED Goldsmith was seen in an outside ER on: 06/03/2023 Diagnosis: Closed in injury Medical records have been uploaded to the patient's chart and are available for viewing in [facility]. Please review for plan of care and any follow-up needed. /corry Lafleur RN BSN CNOR enamel pulverizer [employer] Signed: 06/06/2023 12:27 Receipt Acknowledged By: 06/06/2023 13:01 /chadwick/ ERINN FLANNERY RN REGISTERED NURSE * AWAITING SIGNATURE * BRINA BIRMINGHAM [facility] Jun 03, 2023 04:47 PM NONVA NOTE: LOCAL TITLE: [facility] SELF PRESENTING CARE COORD PLAN STANDARD TITLE: NONVA NOTE DATE OF NOTE: JUN 03, 2023@16:47 ENTRY DATE: JUN 04, 2023@16:47:51 AUTHOR: CHINA REYNOLDS COSIGNER: URGENCY: STATUS: COMPLETED [facility] SELF PRESENTING CARE COORD PLAN NOTE Has ADDENDA Emergency Notification Intake Date Presenting to the Facility: May Method of Contact: Notified from [employer] worklist Notification ID: [id number] [facility] [place] Referral #: [facility] Name: Hospital: [facility] Address: [address] City: [place] State: [place] Zip Code: [address] Phone : [facility] Point of Contact: Name: [facility] Chief complaint: FALL Primary Diagnosis: Disposition Discharged Date of discharge: May Discharge to home /chadwick/ CHINA [employer] MASKER Signed: 06/04/2023 16:53 Receipt Acknowledged By: 06/05/2023 09:44 /chadwick/ GALLITO SINGLETARY RN enamel pulverizer [employer] for DOROTEO HANSEN 06/05/2023 ADDENDUM STATUS: COMPLETED Co-signing the [facility] Nurse covering this episode of care/facility. /corry SINGLETARY RN enamel pulverizer [employer] Signed: 06/05/2023 09:44 Receipt Acknowledged By: 06/06/2023 12:17 /corry Lafleur RN BSN CNOR enamel pulverizer [employer] 06/06/2023 ADDENDUM STATUS: COMPLETED Goldsmith was seen in an outside ER on: 06/03/2023 Diagnosis: Closed in injury Medical records have been uploaded to the patient's chart and are available for viewing in [facility]. Please review for plan of care and any follow-up needed. /corry Lafleur RN BSN CNOR enamel pulverizer [employer] Signed: 06/06/2023 12:27 Receipt Acknowledged By: 06/06/2023 13:01 /corry FLANNERY RN REGISTERED NURSE * AWAITING SIGNATURE * BRINA BIRMINGHAM [facility]
--- OUTSIDE RECORDS SUMMARY | 2024-02-17 12:50 | XMS_ITS | Encounter Summary ---
Author Name [facility] Organization [facility] Address [address] [place] [address] Care Team Providers Care Elevator Dispatcher Name Role Phone BRINA BIRMINGHAM Primary Care [...] PLATI LULA BLUE COMP Jul 22, 2016 [id number] [phone] JACK COHN PATIENT ANTHEM [place] PREFERRED PROVIDER ORGANIZAT ION (PPO) PLATI NUM BLUE COMP Jul 22, 2016 [id number] [phone] JACK COHN PATIENT ANTHEM [place] PREFERRED PROVIDER ORGANIZAT ION (PPO) PLATI NUM BLUE COMP Jul 22, 2016 [id number] [phone] JACK COHN PATIENT [place] PREFERRED PROVIDER ORGANIZAT ION (PPO) PLATI NUM BLUE COMP Jul 22, 2016 [id number] [phone] JACK COHN [place]IENT [place] [facility] ([place]NR) MEDICARE ADVANTAGE [facility] (WNR) Jul 22, 2016 [id number] [phone] JACK COHN [place] [facility] [place] MEDICARE ADVANTAGE [facility] (WNR) Jul 22, 2016 [id number] [phone] JACK COHN MEDICARE (WNR) MEDICARE ([place]) PART A November 19, 2004 PART A [id number] [phone] JACK COHN PATIENT MEDICARE (WNR) MEDICARE (M) PART B November 19, 2004 PART B [id number] JACK COHN PATIENT PRIME THERAPEUTI CS RX PRESCRIPT ION BCBS [facility] Jul 22, 2016 [id number] [phone] JACK COHN PATIENT Selected Encounter This section includes the information on record at [place] for the Encounter. Date/Time Encounter Type Encounter Description Reason Pro vider Source December 19, 2023 12:12 PM Outpatient Encounter PRIMARY CARE/MEDICINE IHE Encounter Template Text not used by [place] Plan of Treatment: Future Appointments (+ 6 months) and Future Tests (+/- 45 days) The Plan of Treatment section includes future care activities for the patient from all [place] treatmentfacilities. This section includes future appointments and future orders which are active, pending or scheduled. Future Appointments This section includes appointments that were scheduled to occur 6 months from the date of the Encounter, up to a maximum of 20 appointments. The data comes from all [place] treatment facilities. Appointment Date/Time Appointment Type Appointme nt Facility Name Jan 06, 2024 09:30 AM AMB[facility]ATORY - NONE [facility] Jan 07, 2024 09:00 AM [facility] - [facility]ICINE [facility] Jan 30, 2024 07:45 AM AMBULATORY - SURGERY [place] [facility] Jan 30, 2024 10:30 AM AMBULATORY - NONE [facility] Feb 27, 2024 05:10 PM AMBULATORY - NONE [facility] Lab Results: +/- 30 days of the encounter This section includes the Chemistry and Hematology Lab Results on record with [place] for the patient. Radiology Reports and Pathology Reports are provided separately, in subsequent sections. Lab Results This section contains the Chemistry/Hematology Results that were resulted 30 days before or 30 daysafter the date of the Encounter. Date/Time Source Result Type Result - Unit Interpretation Reference Range Comment Jan 06, 2024 09:29 AM [facility] BASIC METABOLIC PANEL+MG Specimen Type: PLASMA No comment entered. Ordering Provider: BRINA BIRMINGHAM Report Released Date/Time: December 19, 2023 12:41 PM Reporting Lab: [facility] [id number] Performing Lab: [facility] [phone] CREATININE 0.8 mg/dL 0.7-1.2 UREA NITROGEN 13 mg/dL 8-26 GLUCOSE 95 mg/dL 70-100 SODIUM 141 mmol/L 136-145 POTASSIUM 3.8 mmol/L 3.5-5.1 CHLORIDE 107 mmol/L 98-107 CO2 26 mmol/L 22-29 CALCIUM 9.5 mg/dL 8.4-10.2 MAGNESIUM 2.0 mg/dL 1.6-2.6 ANION GAP 8 mmol/L 5-15 .CREAT EGFR(CKD-EPI) 88 >60 December 19, 2023 09:17 AM [facility] B 12 Specimen Type: SERUM No comment entered. Ordering Provider: BRINA BIRMINGHAM Report Released Date/Time: December 18, 2023 02:26 PM Reporting Lab: [facility] [phone] Performing Lab: [facility] [phone] B 12 304 pg/mL 213-816 December 19, 2023 09:17 AM [facility] FOLATE Specimen Type: SERUM No comment entered. Ordering Provider: BRINA BIRMINGHAM Report Released Date/Time: December 18, 2023 02:26 PM Reporting Lab: [facility] [phone] Performing Lab: [facility] [phone] FOLATE 8.3 ng/mL >7.0 December 19, 2023 09:17 AM [facility] LIPID PANEL,NON-FASTING Specimen Type: PLASMA No comment entered. Ordering Provider: BRINA BIRMINGHAM Report Released Date/Time: December 18, 2023 02:26 PM Reporting Lab: [facility] [phone] Performing Lab: [facility] [phone] CHOLESTEROL 109 mg/dL <199 .HDL 43 mg/dL >40 LDL CALCULATION 45 mg/dL <99 VLDL CALCULATION 21 mg/dL <29 NON HDL CHOLESTEROL 66 mg/dL <129 TRIG(NON FASTING) 107 mg/dL <149 December 19, 2023 09:17 AM [facility] CBC Specimen Type: BLOOD No comment entered. Ordering Provider: RBINA BIRMINGHAM Report Released Date/Time: December 18, 2023 02:26 PM Reporting Lab: [facility] [phone] Performing Lab: [facility] [phone] WBC 6.74 10*3/uL 4.0-11.0 RBC 4.45 10*6/uL L 4.6-6.2 HGB 11.6 g/dL L 13.5-17.9 HCT 36.7 L 41-54 MCV 82.5 fL 80-100 MCH 26.1 pg L 27-33 MCHC 31.6 g/dL L 32.0-37.5 PLT 188 10*3/uL 150-400 MPV 11.1 fL H 7.4-10.4 RDW 13.4 11.5-14.5 December 19, 2023 09:17 AM [facility] COMPREHENSIVE METABOLIC PANEL+MG Specimen Type: PLASMA No comment entered. Ordering Provider: BRINA BIRMINGHAM Report Released Date/Time: December 18, 2023 02:26 PM Reporting Lab: [facility] [phone] Performing Lab: [facility] [phone] CREATININE 0.8 mg/dL 0.7-1.2 UREA NITROGEN 11 [...] 88 >60 December 19, 2023 09:17 AM [facility] IRON GROUP Specimen Type: SERUM No comment entered. Ordering Provider: BRINA BIRMINGHAM Report Released Date/Time: December 19, 2023 12:41 PM Reporting Lab: [facility] [phone] Performing Lab: [facility] [phone] IRON 34 ug/dL L 65-175 TIBC,CALCULATED 364 [...] Source December 19, 2023 12:35 PM 133/75 [facility] December 19, 2023 10:04 AM 97.2 58 143/75 16 92 0 290.5 40 [facility] Social History: Smoking Status (Most current) and Tobacco Use (All prior to encounter date) This section includes the most current, and the historical, smoking and tobacco- related health factors from the [place] facility where the Encounter took place. Current Smoking Status This section includes the most current smoking, or tobacco-related health factor, from the [place] facility where the Encounter took place. Date/Time Current Smoking Status Comment Leonard ity Apr 23, 2023 01:00 PM VA-TOBACCO NEVER USED [facility] Tobacco Use History This section includes a history of the smoking, or tobacco-related health factors, that were collected on or before the date of the Encounter. The data comes from the [place] facility where the Encounter took place. Date/Time Smoking Status/Tobacco Use Comment F acility Apr 24, 2022 09:43 AM VA-TOBACCO FORMER USER [facility] Apr 24, 2022 09:43 AM VA-TOBACCO QUIT 15 YRS OR MORE [facility] Feb 23, 2021 11:00 AM VA-TOBACCO FORMER USER [facility] Feb 23, 2021 11:00 AM VA-TOBACCO QUIT 15 YRS OR MORE [facility] Aug 04, 2019 03:40 PM VA-TOBACCO FORMER USER [facility] Aug 04, 2019 03:40 PM VA-TOBACCO QUIT 15 YRS OR MORE [facility] Jul 28, 2018 10:03 AM VA-TOBACCO FORMER USER [facility] Jul 28, 2018 10:03 AM VA-TOBACCO QUIT 15 YRS OR MORE [facility] Sep 12, 2017 09:15 AM FORMER TOBACCO USE >1Y <7Y [facility] November 30, 2016 07:51 AM FORMER TOBACCO USER 7Y OR GREATE R [facility] Sep 19, 2015 11:18 AM FORMER TOBACCO USE >1Y <7Y [facility] December 03, 2014 07:58 AM FORMER TOBACCO USER 7Y OR GREATE R [facility] December 01, 2013 07:39 AM LIFETIME NON-TOBACCO USER [facility] May 07, 2012 07:53 AM FORMER TOBACCO USE >1Y <7Y [facility] Aug 01, 2011 08:59 AM FORMER TOBACCO USE >1Y <7Y [facility] Jul 24, 2010 07:49 AM CURRENT TOBACCO USER [facility] Aug 03, 2009 10:18 AM CURRENT TOBACCO USER [facility] Aug 23, 2008 07:54 AM CURRENT TOBACCO USER [facility] Aug 15, 2007 07:52 AM CURRENT TOBACCO USER [facility] 2006 07:43 AM FORMER TOBACCO USE >1Y <7Y [facility] Advance Directives: All historical and current Section Date Range: From patient's date of to the date document was created. This section includes ALL of a patient's completed or amended [place] Advance and Rescinded Directives. The entries below indicate that a directive exists for the patient, but an actual copy is not included with this document. The data comes from all [place] facilities. Date Advance Directives Provider Source Mar 20, 2023 ADVANCE DIRECTIVE DISCUSSION ELY BERTRAND [facility] Mar 20, 2023 ADVANCE DIRECTIVE ELY BERTRAND [facility] Aug 02, 2003 ADVANCE DIRECTIVE SHANDA CES[facility] Encounter Notes: All associated encounter notes This section contains the clinical notes associated to the Encounter. Date/Time Encounter Note(s) Provider Source December 19, 2023 12:12 PM HOME HEALTH REFERR AL NOTE: LOCAL TITLE: [facility] STANDARD TITLE: HOME HEALTH REFERRAL NOTE DATE OF NOTE: DECEMBER 19, 2023@12:12 ENTRY DATE: DECEMBER 19, 2023@12:12:35 AUTHOR: STAN PERALES EXP COSIGNER: URGENCY: STATUS: COMPLETED HOME HEALTH CARE CERTIFICATION AND PLAN OF CARE SIGNED BY: Dr. birmingham........[place], [place] Certification period From: November To: Jan /chadwick/ STAN PERALES Advanced MSA Signed: 12/19/2023 12:17 STAN PERALES [facility]
--- OUTSIDE RECORDS SUMMARY | 2024-02-17 12:50 | XMS_ITS | Encounter Summary ---
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 Name Role Phone BRINA BIRMINGHAM Primary Care [...] PLATI LULA BLUE COMP Jul 22, 2016 [id number] [phone] JACK COHN PATIENT ANTHEM [place] PREFERRED PROVIDER ORGANIZAT ION (PPO) PLATI NUM BLUE COMP Jul 22, 2016 [id number] [phone] JACK COHN PATIENT ANTHEM [employer] PREFERRED PROVIDER ORGANIZAT ION (PPO) PLATI NUM BLUE COMP Jul 22, 2016 [id number] [phone] JACK COHN PATIENT [place] PREFERRED PROVIDER ORGANIZAT ION (PPO) PLATI NUM BLUE COMP Jul 22, 2016 [id number] [phone] JACK COHN PATIENT [place] [facility] (WNR) [facility]ICARE [facility] (WNR[facility] Jul 22, 2016 [id number] [phone] JACK COHN PATIENT [place] [facility] ([place]NR) [facility]ICARE [facility] (WNR) Jul 22, 2016 [id number] [phone] JACK COHN PATIENT MEDICARE (WNR) MEDICARE (M) PART A November 19, 2004 PART A [id number] JACK COHN PATIENT MEDICARE (WNR) MEDICARE (M) PART B November 19, 2004 PART B [id number] SUKIJACK GARCÍA PATIENT PRIME THERAPEUTI CS RX PRESCRIPT ION BCBS [facility] Jul 22, 2016 [id number] [phone] JACK COHN PATIENT Selected Encounter This section includes the information on record at [place] for the Encounter. Date/Time Encounter Type Encounter Description Reason Provider Source December 19, 2023 10:15 AM OFFICE O/P EST MOD 30 MIN PRIMARY CARE/MEDICINE ICD-10-CM I10 Essential (primary) hypertension BRINA BIRMINGHAM IHE Encounter Template Text not used by [place] Assessments - Encounter Diagnoses This section includes the primary and secondary diagnoses documented for the Encounter. Date/Time Primary/Secondary Diagnosis Diagnosis Name Provider Source December 19, 2023 03:21 PM PRIMARY Essential (primary) hypertension BRINA BIRMINGHAM [facility] December 19, 2023 03:21 PM SECONDARY Iron deficiency anemia, unspecified BRINA BIRMINGHAM [facility] December 19, 2023 03:21 PM SECONDARY Paroxysmal atrial fibrillation BRINA BIRMINGHAM [facility] December 19, 2023 03:21 PM SECONDARY Venous insufficiency (chronic) (peripheral) BRINA BIRMINGHAM [facility] Plan of Treatment: Future Appointments (+ 6 months) and Future Tests (+/- 45 days) The Plan of Treatment section includes future care activities for the patient from all [place] treatmentfacilities. This section includes future appointments and future orders which are active, pending or scheduled. Future Appointments This section includes appointments that were scheduled to occur 6 months from the date of the Encounter, up to a maximum of 20 appointments. The data comes from all [place] treatment facilities. Appointment Date/Time Appointment Type Appointme nt Facility Name Jan 06, 2024 09:30 AM AMBULATORY - NONE [place] [facility] Jan 07, 2024 09:00 AM AMBULATORY - MEDICINE [place] [facility] Jan 30, 2024 07:45 AM AMBULATORY - SURGERY [place] [facility] Jan 30, 2024 10:30 AM AMBULATORY - NONE [place] [facility] Feb 27, 2024 05:10 PM [facility] Lab Results: +/- 30 days of the encounter This section includes the Chemistry and Hematology Lab Results on record with [place] for the patient. Radiology Reports and Pathology Reports are provided separately, in subsequent sections. Lab Results This section contains the Chemistry/Hematology Results that were resulted 30 days before or 30 daysafter the date of the Encounter. Date/Time Source Result Type Result - Unit Interpretation Reference Range Comment Jan 06, 2024 09:29 AM [facility] BASIC METABOLIC PANEL+MG Specimen Type: PLASMA No comment entered. Ordering Provider: BRINA BIRMINGHAM Report Released Date/Time: December 19, 2023 12:41 PM Reporting Lab: [facility] [id number] Performing Lab: [facility] [id number] CREATININE 0.8 mg/dL 0.7-1.2 UREA NITROGEN 13 mg/dL 8-26 GLUCOSE 95 mg/dL 70-100 SODIUM 141 mmol/L 136-145 POTASSIUM 3.8 mmol/L 3.5-5.1 CHLORIDE 107 mmol/L 98-107 CO2 26 mmol/L 22-29 CALCIUM 9.5 mg/dL 8.4-10.2 MAGNESIUM 2.0 mg/dL 1.6-2.6 ANION GAP 8 mmol/L 5-15 .CREAT EGFR(CKD-EPI) 88 >60 December 19, 2023 09:17 AM [facility] B 12 Specimen Type: SERUM No comment entered. Ordering Provider: BRINA BIRMINGHAM Report Released Date/Time: December 18, 2023 02:26 PM Reporting Lab: [facility] [id number] Performing Lab: [facility] [id number] B 12 304 pg/mL 213-816 December 19, 2023 09:17 AM [facility] FOLATE Specimen Type: SERUM No comment entered. Ordering Provider: BRINA BIRMINGHAM Report Released Date/Time: December 18, 2023 02:26 PM Reporting Lab: [facility] [id number] Performing Lab: [facility] [phone] FOLATE 8.3 ng/mL >7.0 December 19, 2023 09:17 AM [facility] CBC Specimen Type: BLOOD No comment entered. Ordering Provider: BRINA BIRMINGHAM Report Released Date/Time: December 18, 2023 02:26 PM Reporting Lab: [facility] [address] Performing Lab: [facility] [address] WBC 6.74 10*3/uL 4.0-11.0 RBC 4.45 10*6/uL L 4.6-6.2 HGB 11.6 g/dL L 13.5-17.9 HCT 36.7 L 41-54 MCV 82.5 fL 80-100 MCH 26.1 pg L 27-33 MCHC 31.6 g/dL L 32.0-37.5 PLT 188 10*3/uL 150-400 MPV 11.1 fL H 7.4-10.4 RDW 13.4 11.5-14.5 December 19, 2023 09:17 AM [facility] LIPID PANEL,NON-FASTING Specimen Type: PLASMA No comment entered. Ordering Provider: BRINA BIRMINGHAM Report Released Date/Time: December 18, 2023 02:26 PM Reporting Lab: [facility] [phone] Performing Lab: [facility] [phone] CHOLESTEROL 109 mg/dL <199 .HDL 43 mg/dL >40 LDL CALCULATION 45 mg/dL <99 VLDL CALCULATION 21 mg/dL <29 NON HDL CHOLESTEROL 66 mg/dL <129 TRIG(NON FASTING) 107 mg/dL <149 December 19, 2023 09:17 AM [facility] COMPREHENSIVE METABOLIC PANEL+MG Specimen Type: PLASMA No comment entered. Ordering Provider: BRINA BIRMINGHAM Report Released Date/Time: December 18, 2023 02:26 PM Reporting Lab: [facility] [id number] Performing Lab: [facility] [address] CREATININE 0.8 mg/dL 0.7-1.2 UREA NITROGEN 11 [...] 88 >60 December 19, 2023 09:17 AM [facility] IRON GROUP Specimen Type: SERUM No comment entered. Ordering Provider: BRINA BIRMINGHAM Report Released Date/Time: December 19, 2023 12:41 PM Reporting Lab: [facility] [address] Performing Lab: [facility] [address] IRON 34 ug/dL L 65-175 TIBC,CALCULATED 364 [...] Source December 19, 2023 12:35 PM 133/75 [facility] December 19, 2023 10:04 AM 97.2 58 143/75 16 92 0 290.5 40 [facility] Social History: Smoking Status (Most current) and Tobacco Use (All prior to encounter date) This section includes the most current, and the historical, smoking and tobacco- related health factors from the [place] facility where the Encounter took place. Current Smoking Status This section includes the most current smoking, or tobacco-related health factor, from the [place] facility where the Encounter took place. Date/Time Current Smoking Status Comment Facil ity Apr 23, 2023 01:00 PM VA-TOBACCO NEVER USED [facility] Tobacco Use History This section includes a history of the smoking, or tobacco-related health factors, that were collected on or before the date of the Encounter. The data comes from the [place] facility where the Encounter took place. Date/Time Smoking Status/Tobacco Use Comment F acility Apr 24, 2022 09:43 AM VA-TOBACCO FORMER USER [facility] Apr 24, 2022 09:43 AM VA-TOBACCO QUIT 15 YRS OR MORE [facility] Feb 23, 2021 11:00 AM VA-TOBACCO FORMER USER [facility] Feb 23, 2021 11:00 AM VA-TOBACCO QUIT 15 YRS OR MORE [facility] Aug 04, 2019 03:40 PM VA-TOBACCO FORMER USER [facility] Aug 04, 2019 03:40 PM VA-TOBACCO QUIT 15 YRS OR MORE [facility] Jul 28, 2018 10:03 AM VA-TOBACCO FORMER USER [facility] Jul 28, 2018 10:03 AM VA-TOBACCO QUIT 15 YRS OR MORE [facility] Sep 12, 2017 09:15 AM FORMER TOBACCO USE >1Y <7Y [facility] November 30, 2016 07:51 AM FORMER TOBACCO USER 7Y OR GREATE R [facility] Sep 19, 2015 11:18 AM FORMER TOBACCO USE >1Y <7Y [facility] December 03, 2014 07:58 AM FORMER TOBACCO USER 7Y OR GREATE R [facility] December 01, 2013 07:39 AM LIFETIME NON-TOBACCO USER [facility] May 07, 2012 07:53 AM FORMER TOBACCO USE >1Y <7Y [facility] Aug 01, 2011 08:59 AM FORMER TOBACCO USE >1Y <7Y [facility] Jul 24, 2010 07:49 AM CURRENT TOBACCO USER [facility] Aug 03, 2009 10:18 AM CURRENT TOBACCO USER [facility] Aug 23, 2008 07:54 AM CURRENT TOBACCO USER [facility] Aug 15, 2007 07:52 AM CURRENT TOBACCO USER [facility] 2006 07:43 AM FORMER TOBACCO USE >1Y <7Y [facility] Advance Directives: All historical and current Section Date Range: From patient's date of to the date document was created. This section includes ALL of a patient's completed or amended [place] Advance and Rescinded Directives. The entries below indicate that a directive exists for the patient, but an actual copy is not included with this document. The data comes from all [place] facilities. Date Advance Directives Provider Source Mar 20, 2023 ADVANCE DIRECTIVE DISCUSSION ELY BERTRAND [facility] Mar 20, 2023 ADVANCE DIRECTIVE ELY BERTRAND [facility] Aug 02, 2003 [facility]ANCE [facility]IVE [facility] Encounter Notes: All associated encounter notes This section contains the clinical notes associated to the Encounter. Date/Time Encounter Note(s) Provider Source December 19, 2023 03:23 PM ADDENDUM: LOCAL TITLE: Addendum STANDARD TITLE: ADDENDUM DATE OF NOTE: DECEMBER 19, 2023@15:23:41 ENTRY DATE: DECEMBER 19, 2023@15:23:43 AUTHOR: BRINA BIRMINGHAM EXP COSIGNER: URGENCY: STATUS: COMPLETED Please let the patient know I was able to review the iron panel, and as I discussed with the patient and his daughter, this confirms the iron deficiency. Please let him know I've ordered the GI consult and iron supplement as we talked about earlier. Thank you! /chadwick/ BRINA BIRMINGHAM MD PHYSICIAN, [facility] Signed: 12/19/2023 15:23 Receipt Acknowledged By: 12/19/2023 15:38 /chadwick/ ERINN FLANNERY RN REGISTERED NURSE --- Original Document --- 12/19/23 MEDICINE CLINIC NOTE: MEDICINE CLINIC NOTE ASSESSMENT AND PLAN #ANTONIETA: GI consult, iron supplementation #Waxining and waning peripheral edema US 2022 showed venous insufficiency bilaterally. Is also on amlodipine. DDx includes pulmonary hypertension considering h/o smoking/obesity and TTE [facility] 02/16/2023 (pasted at end of note) showig dilated IVF and elevated PAP. HFpEF also possible considering weight gain, but BNP normal 05/2023. 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 Zio patch showed atrial fibrillation. -Continue rosuvastatin 20 mg daily -Continue DOAC #[facility] Now living in [facility]. #Low back pain with MRI and EMG [...] patient's weight, suggested [facility] clinic RTC: 6 months Brina Birmingham MD General Internal Medicine [facility] A total of 35 minutes was spent on this visit reviewing previous notes, counseling the patient, ordering or interpreting tests, adjusting meds, and documenting the findings in the note. CC: Semi-annual HPI The patient is joined w/ his daughter. He has been doing OK of late. He has waxing and waning lower extremity swelling that doesn't seem to bother him all that much. He denies any shortness of breath, but does note he sleep with his bed in an upright position. He has had some weight gain, but denies much in terms of shortness of breath. His daughter thinks it is due to him snacking more. He denies any calf pain. He uses amlodipine 5 mg daily. No wheeping of fluid, itchiness of calfs. Swelling def. improves when his legs are raised. His hemoglobin is on the low side. Denies any outward signs of bleeding or black stools. No abdominal pain. He continues to live in an assisted living facility. UPDATED PROBLEM LIST Active problems - Computerized Problem List is the source for the followin. Benign prostatic hyperplasia 2. Hypertension (SNOMED CT 49483895) 3. Gastroesophageal reflux disease - Also known hiatal hernia 4. Morbid obesity 5. 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 Osteoarthritis of hip - was evaluated by ortho 09/2017 and deferred surgery given weight 7. Mild cognitive impairment 8. Lumbosacral Radiculopathy (SCT 2915000) - At one point neurosurgery was planning for L2-S1 fusion with L3-5 laminectomies but this was cancelled 10/2021. - Has had improvement with duloxetine and use of Rollator 9. Depression (SCT 52705092) 10. Nocturia - Has long history of this, and previously followed with urology, last seeing them 2018 - Prior UA has been normal - Suspect largely driven by BPH +/- MEGHA 11. Obstructive sleep apnea syndrome - Suspected by pulm 2022, watchPAT pending 12. Paroxysmal Atrial Fibrillation (SCT 440756707) - Dx 04/2023 following CVA 01/2023 - Started apixaban 05/2023 13. Long-Term Current Use of Anticoagulant (SCT 874747765) 14. Venous insufficiency of leg - per 05/2023 US MEDICATION RECONCILATION Education Evaluations *Was medication education provided for NEW medications or CHANGES to medications? (including medication name, dose, route, reason for use, and potential side effects). Yes. Verbal education was provided to patient/caregiver and patient/caregiver verbalized understanding. TERATOGENIC MED & CONTRACEPTION REVIEW (Optional)... MEDICATION [...] were also reviewed/updated for accuracy. Allergies/ADR from [facility] may not display in CPRS. Use JLV MRT5 - Allergies/ADRs FACILITY ALLERGY/ADR -------- No Remote Allergy/ADR Data available for this patient [place] [facility] Active and Recently Outpatient Medications (including Supplies): Issue Date Status Last Fill Active Outpatient Medications Refills Expiration ========= 1) ACETAMINOPHEN 500MG TAB Qty: 600 for 90 ACTIVE Issu:04-03-23 days Sig: TAKE TWO TABLETS BY MOUTH Refills: 2 Last:11-20-23 TWICE A DAY AND TAKE TWO TABLETS EVERY Expr:04-03-24 DAY NEEDED FOR PAIN 2) APIXABAN 5MG TAB Qty: 60 for 30 days ACTIVE Issu:06-03-23 Sig: TAKE ONE TABLET BY MOUTH EVERY 12 Refills: 4 Last:12-31-23 HOURS TO PREVENT STROKES Expr:06-03-24 3) CARBOXYMETHYLCELLULOSE NA 0.5% OPH SOLN ACTIVE Issu:04-03-23 Qty: 15 for 30 days Sig: INSTILL 1 Refills: 11 Last:04-04-23 DROP IN BOTH EYES FOUR TIMES A DAY Expr:04-03-24 NEEDED FOR DRY EYES 4) DRESS,MEPILEX BORDER FLEX 4X4IN #[id number] ACTIVE Issu:05-02-23 Qty: 30 for 30 days Sig: APPLY 1 Refills: 1 Last:05-03-23 DRESSING TOPICALLY EVERY DAY FOR SKIN Expr:05-02-24 TEAR 5) DULOXETINE HCL 60MG EC CAP Qty: 90 for ACTIVE Issu:04-03-23 90 days Sig: TAKE ONE CAPSULE BY Refills: 1 Last:11-09-23 MOUTH EVERY DAY REPLACES CITALOPRAM Expr:04-03-24 PRESCRIPTION 6) FINASTERIDE 5MG TAB Qty: 90 for 90 days ACTIVE Issu:04-03-23 Sig: TAKE ONE TABLET BY MOUTH EVERY Refills: 1 Last:09-21-23 DAY FOR PROSTATE Expr:04-03-24 7) GAUZE PAD 4IN X 4IN 8-PLY NONSTERILE ACTIVE Issu:05-02-23 Qty: 200 for 30 days Sig: USE GAUZE Refills: 11 Last:05-03-23 SPONGE/PAD GAUZE PAD 4IN X 4IN 8-PLY Expr:05-02-24 NONSTERILE TOPICALLY DIRECTED FOR WOUND CARE 8) LIDOCAINE 5% PATCH Qty: 30 for 30 days ACTIVE Issu:06-06-23 Sig: APPLY 1 PATCH TOPICALLY EVERY DAY Refills: 1 Last:07-26-23 FOR UP TO 12 HOURS FOR PAIN Expr:06-06-24 9) LISINOPRIL 10MG TAB Qty: 90 for 90 days ACTIVE Issu:04-03-23 Sig: TAKE ONE TABLET BY MOUTH EVERY Refills: 0 Last:12-20-23 DAY FOR BLOOD PRESSURE Expr:04-03-24 10) METOPROLOL TARTRATE 25MG TAB Qty: 180 ACTIVE (S) Issu:11-20-23 for 90 days Sig: TAKE ONE TABLET BY Refills: 0 Last:02-03-24 MOUTH TWICE A DAY FOR BLOOD PRESSURE Expr:02-18-24 11) MULTIVIT/OPHTH AREDS2/LUTE/ZEAX CAP/TAB ACTIVE Issu:09-20-23 Qty: 240 for 90 days Sig: TAKE 1 Refills: 3 Last:09-23-23 CAP/TAB BY MOUTH TWICE A DAY FOR EYE Expr:09-20-24 HEALTH 12) PANTOPRAZOLE NA 40MG EC TAB Qty: 90 for ACTIVE Issu:04-03-23 90 days Sig: TAKE ONE TABLET BY MOUTH Refills: 1 Last:11-21-23 EVERY EVENING TO DECREASE STOMACH ACID Expr:04-03-24 -TAKE ON AN EMPTY STOMACH, AT LEAST ONE-HALF HOUR BEFORE EATING 13) ROSUVASTATIN CA 20MG TAB Qty: 90 for 90 ACTIVE Issu:04-03-23 days Sig: TAKE ONE TABLET BY MOUTH Refills: 0 Last:12-20-23 EVERY DAY FOR CHOLESTEROL Expr:04-03-24 14) SENNOSIDES 8.6MG TAB Qty: 200 for 90 ACTIVE Issu:04-03-23 days Sig: TAKE ONE TABLET BY MOUTH Refills: 2 Last:08-21-23 EVERY DAY AND TAKE ONE TABLET EVERY Expr:04-03-24 DAY NEEDED FOR CONSTIPATION 15) TAMSULOSIN HCL 0.4MG CAP Qty: 180 for ACTIVE Issu:04-03-23 90 days Sig: TAKE TWO CAPSULES BY Refills: 2 Last:09-12-23 MOUTH AT BEDTIME Expr:04-03-24 Issue Date Status Last Fill Pending Outpatient Medications Refills Expiration ========= 1) HYDROCHLOROTHIAZIDE 12.5MG TAB Qty: 60 PENDING Sig: TAKE ONE TABLET BY MOUTH EVERY Refills: 0 DAY Issue Date Status Last Fill Inactive Outpatient Medications Refills Expiration ========= 1) AMLODIPINE BESYLATE 5MG TAB Qty: 90 for DISCONTINUED Issu:04-03-23 90 days Sig: TAKE ONE TABLET BY MOUTH Refills: 1 Last:11-09-23 EVERY DAY FOR BLOOD PRESSURE Expr:04-03-24 2) ASPIRIN 81MG CHEW TAB Qty: 108 for 90 DISCONTINUED Issu:04-03-23 days Sig: CHEW ONE TABLET BY MOUTH Refills: 3 Last:04-04-23 EVERY DAY TO PREVENT BLOOD CLOTS Expr:04-03-24 3) DULOXETINE HCL 60MG EC CAP Qty: 90 for DISCONTINUED Issu:11-08-22 90 days Sig: TAKE ONE CAPSULE BY Refills: 3 Last:01-11-23 MOUTH EVERY DAY REPLACES CITALOPRAM Expr:11-09-23 PRESCRIPTION 4) FINASTERIDE 5MG TAB Qty: 90 for 90 days DISCONTINUED Issu:11-08-22 Sig: TAKE ONE TABLET BY MOUTH EVERY Refills: 3 Last:01-11-23 DAY FOR PROSTATE Expr:11-09-23 5) GAUZE PAD 4IN X 4IN 8-PLY NONSTERILE DISCONTINUED Issu:04-23-23 Qty: 200 for 30 days Sig: USE GAUZE Refills: 11 Last:04-23-23 SPONGE/PAD TOPICALLY DIRECTED FOR Expr:04-23-24 WOUND CARE 6) METOPROLOL TARTRATE 25MG TAB Qty: 180 DISCONTINUED Issu:11-14-23 for 90 days Sig: TAKE ONE TABLET BY Refills: 0 Last:11-15-23 MOUTH TWICE A DAY FOR BLOOD PRESSURE Expr:02-12-24 7) METOPROLOL TARTRATE 25MG TAB Qty: 180 DISCONTINUED Issu:05-30-23 for 90 days Sig: TAKE ONE TABLET BY (EDIT) Last:05-30-23 MOUTH TWICE A DAY FOR CHEST PAIN Refills: 0 Expr:08-28-23 8) MIRABEGRON 25MG SA TAB Qty: 30 for 30 DISCONTINUED Issu:11-08-22 days Sig: TAKE ONE TABLET BY MOUTH Refills: 0 Last:02-27-23 EVERY DAY Expr:11-09-23 9) MUPIROCIN 2% OINT Qty: 22 for 30 days DISCONTINUED Issu:04-04-23 Sig: APPLY THIN LAYER TOPICALLY TWICE Refills: 5 Last:04-05-23 A DAY FOR INFECTION Expr:04-04-24 10) PANTOPRAZOLE NA 40MG EC TAB Qty: 90 for DISCONTINUED Issu:11-08-22 90 days Sig: TAKE ONE TABLET BY MOUTH Refills: 3 Last:01-24-23 EVERY EVENING TO DECREASE STOMACH ACID Expr:11-09-23 -TAKE ON AN EMPTY STOMACH, AT LEAST ONE-HALF HOUR BEFORE EATING 11) TAMSULOSIN HCL 0.4MG CAP Qty: 180 for DISCONTINUED Issu:11-08-22 90 days Sig: TAKE TWO CAPSULES BY Refills: 3 Last:01-11-23 MOUTH AT BEDTIME Expr:11-09-23 27 Total Medications PHYSICAL EXAM VS: Temp: 97.2 F [36.2 C] (12/19/2023 10:04) BP: 133/75 (12/19/2023 12:35) Pulse:58 (12/19/2023 10:04) Resp: 16 (12/19/2023 10:04) Pain: 0 (12/19/2023 10:04) Weight: WEIGHTS IN LAST 6 MONTHS: 290.5 (DECEMBER 19, 2023@10:04:12) General: Sitting in exam room, no acute distress Pulmonary: Clear to auscultation bilaterally, nonlabored breathing Cardiovascular: Regular rate and rhythm, no extra sounds Extremities: 1+ bilateral lower extremity edema, scattered erythema on bilateral shins w/o wheeping Gait: Able to stand from chair w/ use of arm rests, gait is slow w/ use of walker LABS and STUDIES B 12: 304 FOLATE: 8.3 GLUCOSE: 82 UREA NITROGEN: 11 CREATININE: 0.8 SODIUM: 144 POTASSIUM: 4.4 CHLORIDE: 109 H CO2: 26 CALCIUM: 9.5 CHOLESTEROL: 109 PROTEIN,TOTAL: 7.0 ALBUMIN: 3.9 BILIRUBIN,TOTAL: 0.5 MAGNESIUM: 2.1 HDL: 43 ANION GAP: 9 LDL CHOL: 45 VLDL CHOL: 21 ALKALINE PHOSPHATASE(37C): 35 L SGOT(37C): 22 SGPT(37C): 11 NON HDL CHOLESTEROL: 66 TRIG(NON FASTING): 107 CREATININE EGFR (CKD-EPI): 88 WBC: 6.74 RBC: 4.45 L HGB: 11.6 L HCT: 36.7 L MCV: 82.5 MCH: 26.1 L MCHC: 31.6 L RDW: 13.4 PLT: 188 MPV: 11.1 H FERRITIN: 11.9 L TIBC: 364 IRON: 34 L IRON SATURATION: 9 L TRANSFERRIN: 291 TTE [facility] 02/16/2023 Final Impressions: 1. Technically limited exam. 2. Normal LV size, moderately increased wall thickness, normal global systolic function with an estimated EF of 65 - 70%. Left ventricular wall motion not well visualized. No definite resting regional wall motion abnormality seen. 3. The mitral valve is sclerotic, no mitral regurgitation. 4. The inferior vena cava is dilated, respiratory size variation greater than 50%. 5. Moderately increased estimated pulmonary pressures by tricuspid regurgitation velocity and right atrial pressure (48 mmHg plus RAP). 6. 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 7. Echo contrast was administrered to enhance visualization of all left ventricular segments. /chadwick/ BRINA BIRMINGHAM MD PHYSICIAN, [facility] Signed: 12/19/2023 15:21 BRINA BIRMINGHAM [facility] December 19, 2023 12:47 PM ADMINISTRATIVE NOTE: LOCAL TITLE: AFTER VISIT SUMMARY NOTE STANDARD TITLE: ADMINISTRATIVE NOTE DICT DATE: DECEMBER 19, 2023@12:47:18 ENTRY DATE: DECEMBER 19, 2023@12:47:18 DICTATED BY: BRINA BIRMINGHAM EXP COSIGNER: URGENCY: STATUS: COMPLETED The patient was provided with a copy of an after-visit summary at the conclusion of the visit. A copy of the after-visit summary provided to the patient is available in [employer]. SCANNED DOCUMENT SIGNATURE NOT REQUIRED Electronically Filed: 12/19/2023 by: BRINA BIRMINGHAM MD PHYSICIAN, [facility] BRINA BIRMINGHAM [facility] December 19, 2023 10:15 AM INTERNAL MEDICINE NOTE: LOCAL TITLE: MEDICINE CLINIC NOTE STANDARD TITLE: INTERNAL MEDICINE NOTE DATE OF NOTE: DECEMBER 19, 2023@10:15 ENTRY DATE: DECEMBER 19, 2023@14:12:36 AUTHOR: BRINA BIRMINGHAM EXP COSIGNER: URGENCY: STATUS: COMPLETED MEDICINE CLINIC NOTE Has ADDENDA MEDICINE CLINIC NOTE ASSESSMENT AND PLAN #ANTONIETA: GI consult, iron supplementation #Waxining and waning peripheral edema US 2022 showed venous insufficiency bilaterally. Is also on amlodipine. DDx includes pulmonary hypertension considering h/o smoking/obesity and TTE [facility] 02/16/2023 (pasted at end of note) showig dilated IVF and elevated PAP. HFpEF also possible considering weight gain, but BNP normal 05/2023. 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 Zio patch showed atrial fibrillation. -Continue rosuvastatin 20 mg daily -Continue DOAC #[facility] Now living [place] [facility] -- [facility]. #Low back pain with MRI and EMG [...] patient's weight, suggested MOVE clinic RTC: 6 months Brina Birmingham MD General Internal Medicine [facility] A total of 35 minutes was spent on this visit reviewing previous notes, counseling the patient, ordering or interpreting tests, adjusting meds, and documenting the findings in the note. CC: Semi-annual HPI The patient is joined w/ his daughter. He has been doing OK of late. He has waxing and waning lower extremity swelling that doesn't seem to bother him all that much. He denies any shortness of breath, but does note he sleep with his bed in an upright position. He has had some weight gain, but denies much in terms of shortness of breath. His daughter thinks it is due to him snacking more. He denies any calf pain. He uses amlodipine 5 mg daily. No wheeping of fluid, itchiness of calfs. Swelling def. improves when his legs are raised. His hemoglobin is on the low side. Denies any outward signs of bleeding or black stools. No abdominal pain. He continues to live in an assisted living facility. UPDATED PROBLEM LIST Active problems - Computerized Problem List is the source for the followin. Benign prostatic hyperplasia 2. Hypertension (SNOMED CT [id number]) 3. Gastroesophageal reflux disease - Also known hiatal hernia 4. Morbid obesity 5. 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 Osteoarthritis of hip - was evaluated by ortho 09/2017 and deferred surgery given weight 7. Mild cognitive impairment 8. Lumbosacral Radiculopathy (SCT [id number]) - At one point neurosurgery was planning for L2-S1 fusion with L3-5 laminectomies but this was cancelled 10/2021. - Has had improvement with duloxetine and use of Rollator 9. Depression (SCT [id number]) 10. Nocturia - Has long history of this, and previously followed with urology, last seeing them 2018 - Prior UA has been normal - Suspect largely driven by BPH +/- MEGHA 11. Obstructive sleep apnea syndrome - Suspected by pulm 2022, watchPAT pending 12. Paroxysmal Atrial Fibrillation (SCT [id number]) - Dx 04/2023 following CVA 01/2023 - Started apixaban 05/2023 13. Long-Term Current Use of Anticoagulant (SCT [id number]) 14. Venous insufficiency of leg - per 05/2023 MEDICATION RECONCILATION Education Evaluations *Was medication education provided for NEW medications or CHANGES to medications? (including medication name, dose, route, reason for use, and potential side effects). Yes. Verbal education was provided to patient/caregiver and patient/caregiver verbalized understanding. TERATOGENIC MED & CONTRACEPTION REVIEW (Optional)... MEDICATION [...] Remote Allergy/ADR Data available for this patient [facility] Active and Recently Outpatient Medications (including Supplies): Issue Date Status Last Fill Active Outpatient Medications Refills Expiration ========= 1) ACETAMINOPHEN 500MG TAB Qty: 600 for 90 ACTIVE Issu:04-03-23 days Sig: TAKE TWO TABLETS BY MOUTH Refills: 2 Last:11-20-23 TWICE A DAY AND TAKE TWO TABLETS EVERY Expr:04-03-24 DAY NEEDED FOR PAIN 2) APIXABAN 5MG TAB Qty: 60 for 30 days ACTIVE Issu:06-03-23 Sig: TAKE ONE TABLET BY MOUTH EVERY 12 Refills: 4 Last:12-31-23 HOURS TO PREVENT STROKES Expr:06-03-24 3) CARBOXYMETHYLCELLULOSE NA 0.5% OPH SOLN ACTIVE Issu:04-03-23 Qty: 15 for 30 days Sig: INSTILL 1 Refills: 11 Last:04-04-23 DROP IN BOTH EYES FOUR TIMES A DAY Expr:04-03-24 NEEDED FOR DRY EYES 4) DRESS,MEPILEX BORDER FLEX 4X4IN #[id number] ACTIVE Issu:05-02-23 Qty: 30 for 30 days Sig: APPLY 1 Refills: 1 Last:05-03-23 DRESSING TOPICALLY EVERY DAY FOR SKIN Expr:05-02-24 TEAR 5) DULOXETINE HCL 60MG EC CAP Qty: 90 for ACTIVE Issu:04-03-23 90 days Sig: TAKE ONE CAPSULE BY Refills: 1 Last:11-09-23 MOUTH EVERY DAY REPLACES CITALOPRAM Expr:04-03-24 PRESCRIPTION 6) FINASTERIDE 5MG TAB Qty: 90 for 90 days ACTIVE Issu:04-03-23 Sig: TAKE ONE TABLET BY MOUTH EVERY Refills: 1 Last:09-21-23 DAY FOR PROSTATE Expr:04-03-24 7) GAUZE PAD 4IN X 4IN 8-PLY NONSTERILE ACTIVE Issu:05-02-23 Qty: 200 for 30 days Sig: USE GAUZE Refills: 11 Last:05-03-23 SPONGE/PAD GAUZE PAD 4IN X 4IN 8-PLY Expr:05-02-24 NONSTERILE TOPICALLY DIRECTED FOR WOUND CARE 8) LIDOCAINE 5% PATCH Qty: 30 for 30 days ACTIVE Issu:06-06-23 Sig: APPLY 1 PATCH TOPICALLY EVERY DAY Refills: 1 Last:07-26-23 FOR UP TO 12 HOURS FOR PAIN Expr:06-06-24 9) LISINOPRIL 10MG TAB Qty: 90 for 90 days ACTIVE Issu:04-03-23 Sig: TAKE ONE TABLET BY MOUTH EVERY Refills: 0 Last:12-20-23 DAY FOR BLOOD PRESSURE Expr:04-03-24 10) METOPROLOL TARTRATE 25MG TAB Qty: 180 ACTIVE (S) Issu:11-20-23 for 90 days Sig: TAKE ONE TABLET BY Refills: 0 Last:02-03-24 MOUTH TWICE A DAY FOR BLOOD PRESSURE Expr:02-18-24 11) MULTIVIT/OPHTH AREDS2/LUTE/ZEAX CAP/TAB ACTIVE Issu:09-20-23 Qty: 240 for 90 days Sig: TAKE 1 Refills: 3 Last:09-23-23 CAP/TAB BY MOUTH TWICE A DAY FOR EYE Expr:09-20-24 HEALTH 12) PANTOPRAZOLE NA 40MG EC TAB Qty: 90 for ACTIVE Issu:04-03-23 90 days Sig: TAKE ONE TABLET BY MOUTH Refills: 1 Last:11-21-23 EVERY EVENING TO DECREASE STOMACH ACID Expr:04-03-24 -TAKE ON AN EMPTY STOMACH, AT LEAST ONE-HALF HOUR BEFORE EATING 13) ROSUVASTATIN CA 20MG TAB Qty: 90 for 90 ACTIVE Issu:04-03-23 days Sig: TAKE ONE TABLET BY MOUTH Refills: 0 Last:12-20-23 EVERY DAY FOR CHOLESTEROL Expr:04-03-24 14) SENNOSIDES 8.6MG TAB Qty: 200 for 90 ACTIVE Issu:04-03-23 days Sig: TAKE ONE TABLET BY MOUTH Refills: 2 Last:08-21-23 EVERY DAY AND TAKE ONE TABLET EVERY Expr:04-03-24 DAY NEEDED FOR CONSTIPATION 15) TAMSULOSIN HCL 0.4MG CAP Qty: 180 for ACTIVE Issu:04-03-23 90 days Sig: TAKE TWO CAPSULES BY Refills: 2 Last:09-12-23 MOUTH AT BEDTIME Expr:04-03-24 Issue Date Status Last Fill Pending Outpatient Medications Refills Expiration ========= 1) HYDROCHLOROTHIAZIDE 12.5MG TAB Qty: 60 PENDING Sig: TAKE ONE TABLET BY MOUTH EVERY Refills: 0 DAY Issue Date Status Last Fill Inactive Outpatient Medications Refills Expiration ========= 1) AMLODIPINE BESYLATE 5MG TAB Qty: 90 for DISCONTINUED Issu:04-03-23 90 days Sig: TAKE ONE TABLET BY MOUTH Refills: 1 Last:11-09-23 EVERY DAY FOR BLOOD PRESSURE Expr:04-03-24 2) ASPIRIN 81MG CHEW TAB Qty: 108 for 90 DISCONTINUED Issu:04-03-23 days Sig: CHEW ONE TABLET BY MOUTH Refills: 3 Last:04-04-23 EVERY DAY TO PREVENT BLOOD CLOTS Expr:04-03-24 3) DULOXETINE HCL 60MG EC CAP Qty: 90 for DISCONTINUED Issu:11-08-22 90 days Sig: TAKE ONE CAPSULE BY Refills: 3 Last:01-11-23 MOUTH EVERY DAY REPLACES CITALOPRAM Expr:11-09-23 PRESCRIPTION 4) FINASTERIDE 5MG TAB Qty: 90 for 90 days DISCONTINUED Issu:11-08-22 Sig: TAKE ONE TABLET BY MOUTH EVERY Refills: 3 Last:01-11-23 DAY FOR PROSTATE Expr:11-09-23 5) GAUZE PAD 4IN X 4IN 8-PLY NONSTERILE DISCONTINUED Issu:04-23-23 Qty: 200 for 30 days Sig: USE GAUZE Refills: 11 Last:04-23-23 SPONGE/PAD TOPICALLY DIRECTED FOR Expr:04-23-24 WOUND CARE 6) METOPROLOL TARTRATE 25MG TAB Qty: 180 DISCONTINUED Issu:11-14-23 for 90 days Sig: TAKE ONE TABLET BY Refills: 0 Last:11-15-23 MOUTH TWICE A DAY FOR BLOOD PRESSURE Expr:02-12-24 7) METOPROLOL TARTRATE 25MG TAB Qty: 180 DISCONTINUED Issu:05-30-23 for 90 days Sig: TAKE ONE TABLET BY (EDIT) Last:05-30-23 MOUTH TWICE A DAY FOR CHEST PAIN Refills: 0 Expr:08-28-23 8) MIRABEGRON 25MG SA TAB Qty: 30 for 30 DISCONTINUED Issu:11-08-22 days Sig: TAKE ONE TABLET BY MOUTH Refills: 0 Last:02-27-23 EVERY DAY Expr:11-09-23 9) MUPIROCIN 2% OINT Qty: 22 for 30 days DISCONTINUED Issu:04-04-23 Sig: APPLY THIN LAYER TOPICALLY TWICE Refills: 5 Last:04-05-23 A DAY FOR INFECTION Expr:04-04-24 10) PANTOPRAZOLE NA 40MG EC TAB Qty: 90 for DISCONTINUED Issu:11-08-22 90 days Sig: TAKE ONE TABLET BY MOUTH Refills: 3 Last:01-24-23 EVERY EVENING TO DECREASE STOMACH ACID Expr:11-09-23 -TAKE ON AN EMPTY STOMACH, AT LEAST ONE-HALF HOUR BEFORE EATING 11) TAMSULOSIN HCL 0.4MG CAP Qty: 180 for DISCONTINUED Issu:11-08-22 90 days Sig: TAKE TWO CAPSULES BY Refills: 3 Last:01-11-23 MOUTH AT BEDTIME Expr:11-09-23 27 Total Medications PHYSICAL EXAM VS: Temp: 97.2 F [36.2 C] (12/19/2023 10:04) BP: 133/75 (12/19/2023 12:35) Pulse:58 (12/19/2023 10:04) Resp: 16 (12/19/2023 10:04) Pain: 0 (12/19/2023 10:04) Weight: WEIGHTS IN LAST 6 MONTHS: 290.5 (DECEMBER 19, 2023@10:04:12) General: Sitting in exam room, no acute distress Pulmonary: Clear to auscultation bilaterally, nonlabored breathing Cardiovascular: Regular rate and rhythm, no extra sounds Extremities: 1+ bilateral lower extremity edema, scattered erythema on bilateral shins w/o wheeping Gait: Able to stand from chair w/ use of arm rests, gait is slow w/ use of walker LABS and STUDIES B 12: 304 FOLATE: 8.3 GLUCOSE: 82 UREA NITROGEN: 11 CREATININE: 0.8 SODIUM: 144 POTASSIUM: 4.4 CHLORIDE: 109 H CO2: 26 CALCIUM: 9.5 CHOLESTEROL: 109 PROTEIN,TOTAL: 7.0 ALBUMIN: 3.9 BILIRUBIN,TOTAL: 0.5 MAGNESIUM: 2.1 HDL: 43 ANION GAP: 9 LDL CHOL: 45 VLDL CHOL: 21 ALKALINE PHOSPHATASE(37C): 35 L SGOT(37C): 22 SGPT(37C): 11 NON HDL CHOLESTEROL: 66 TRIG(NON FASTING): 107 CREATININE EGFR (CKD-EPI): 88 WBC: 6.74 RBC: 4.45 L HGB: 11.6 L HCT: 36.7 L MCV: 82.5 MCH: 26.1 L MCHC: 31.6 L RDW: 13.4 PLT: 188 MPV: 11.1 H FERRITIN: 11.9 L TIBC: 364 IRON: 34 L IRON SATURATION: 9 L TRANSFERRIN: 291 TTE [facility] 02/16/2023 Final Impressions: 1. Technically limited exam. 2. Normal LV size, moderately increased wall thickness, normal global systolic function with an estimated EF of 65 - 70%. Left ventricular wall motion not well visualized. No definite resting regional wall motion abnormality seen. 3. The mitral valve is sclerotic, no mitral regurgitation. 4. The inferior vena cava is dilated, respiratory size variation greater than 50%. 5. Moderately increased estimated pulmonary pressures by tricuspid regurgitation velocity and right atrial pressure (48 mmHg plus RAP). 6. 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 7. Echo contrast was administrered to enhance visualization of all left ventricular segments. /chadwick/ BRINA BIRMINGHAM MD PHYSICIAN, [facility] Signed: 12/19/2023 15:21 12/19/2023 ADDENDUM STATUS: COMPLETED Please let the patient know I was able to review the iron panel, and as I discussed with the patient and his daughter, this confirms the iron deficiency. Please let him know I've ordered the GI consult and iron supplement as we talked about earlier. Thank you! /corry BIRMINGHAM MD PHYSICIAN, [facility] Signed: 12/19/2023 15:23 Receipt Acknowledged By: 12/19/2023 15:38 /corry FLANNERY RN REGISTERED NURSE 12/19/2023 ADDENDUM STATUS: COMPLETED Called and spoke with Jennyfer's daughter Raine and shared this information. She is agreeable. She was told GI will reach out for scheduling. [employer] shared that the iron will be mailed out and to read instructions as it's every other day dosing. /corry FLANNERY RN REGISTERED NURSE Signed: 12/19/2023 15:39 BRINA BIRMINGHAM [facility] December 19, 2023 10:05 AM INTERNAL MEDICINE OUTPATIENT NOTE: LOCAL TITLE: MEDICINE CLINIC NURSING NOTE STANDARD TITLE: INTERNAL MEDICINE OUTPATIENT NOTE DATE OF NOTE: DECEMBER 19, 2023@10:05 ENTRY DATE: DECEMBER 19, 2023@10:05:39 AUTHOR: DOMINGO CANADA EXP COSIGNER: URGENCY: STATUS: COMPLETED TYPE OF VISIT: Appointment Check In Type of appointment: In-person appointment REASON FOR VISIT: Annual ALLERGIES: MORPHINE (Apr 24, 2021) VITAL SIGNS: Blood Pressure: 143/75 (12/19/2023 10:04) Pulse: 58 (12/19/2023 10:04) Respiration: 16 (12/19/2023 10:04) Temperature: 97.2 F [36.2 C] (12/19/2023 10:04) Weight: 290.5 lb [131.77 kg] (12/19/2023 10:04) Height: 71.5 in [181.6 cm] (04/23/2023 13:11) BMI: 40.0 O2 Sat: 92% (12/19/2023 10:04) Pain: 0 (12/19/2023 10:04) PAIN SCREEN: Patient is not having significant pain that they wish to discuss with their provider today. MEDICATION Over the Counter/Herbal Medications: The patient denies taking any outside medications or herbals. Alcohol Use Screen (AUDIT-C): Alcohol Screen: SCREEN FOR ALCOHOL (AUDIT-C) An alcohol screening test (AUDIT-C) was negative (score=1). 1. How often did you have a drink containing alcohol in the past year? Consider a drink to be a 12 ounce can or bottle of regular beer, 8 ounces of malt liquor, a 5 ounce glass of table wine, or a 1.5 ounce shot of liquor (like scotch, gin, or vodka). Monthly or less 2. How many drinks containing alcohol did you have on a typical day when you were drinking in the past year? One or two drinks 3. How often did you have six or more drinks on one occasion in the past year? Never /es/ DOMINGO CANADA LPN Signed: 12/19/2023 10:07 DOMINGO CANADA [facility]
--- OUTSIDE RECORDS SUMMARY | 2024-02-17 12:50 | XMS_ITS | Encounter Summary ---
Author Name [facility] [facility] [facility] [place] Address [address] [place] [address] Care Team Providers Care Machine Coil Assembler Name Role Phone BRINA BIRMINGHAM Primary Care [...] PLATI LULA BLUE COMP Jul 22, 2016 [id number] [phone] JACK COHN PATIENT ANTHEM [employer] [place] PREFERRED PROVIDER ORGANIZAT ION (PPO) PLATI NUM BLUE COMP Jul 22, 2016 [id number] [phone] JACK COHN PATIENT ANTHEM [employer] [place] PREFERRED PROVIDER ORGANIZAT ION (PPO) PLATI NUM BLUE COMP Jul 22, 2016 [id number] [phone] JACK COHN PATIENT [place] PREFERRED PROVIDER ORGANIZAT ION (PPO) PLATI NUM BLUE COMP Jul 22, 2016 [id number] [phone] JACK COHN PATIENT BCBS [facility] (WNR) MEDICARE ADVANTAGE [facility] (WNR) Jul 22, 2016 [id number] [phone] JACK COHN PATIENT BCBS [facility] (WNR) MEDICARE ADVANTAGE [facility] (WNR) Jul 22, 2016 [id number] [phone] JACK COHN PATIENT MEDICARE ([place]NR) MEDICARE (M) PART A November 19, 2004 PART A [id number] [phone] JACK COHN PATIENT MEDICARE ([place]) MEDICARE (M) PART B November 19, 2004 PART B [id number] JACK COHN PATIENT PRIME THERAPEUTI CS RX PRESCRIPT ION BCBS [facility] Jul 22, 2016 [id number] [phone] JACK COHN PATIENT Selected Encounter This section includes the information on record at [place] for the Encounter. Date/Time Encounter Type Encounter Description Reason Provider Source December 19, 2023 10:45 AM HEARING AID REPAIR/MODIFYING AUDIOLOGY ICD-10-CM Z01.118 Encntr for exam of ears and hearing w oth abnormal findings ADAM GARRISON Chitra Encounter Template Text not used by [place] Assessments - Encounter Diagnoses This section includes the primary and secondary diagnoses documented for the Encounter. Date/Time Primary/Secondary Diagnosis Diagnosis Name Provider Source December 19, 2023 12:48 PM PRIMARY Encntr for exam of ears and hearing w oth abnormal findings SOFIE GARRISON [facility] December 19, 2023 12:48 PM SECONDARY Sensorineural hearing loss, bilateral SOFIE GARRISON [facility] December 19, 2023 12:48 PM SECONDARY Tinnitus, bilateral SOFIE GARRISON [facility] Plan of Treatment: Future Appointments (+ 6 months) and Future Tests (+/- 45 days) The Plan of Treatment section includes future care activities for the patient from all [place] treatmentfacilities. This section includes future appointments and future orders which are active, pending or scheduled. Future Appointments This section includes appointments that were scheduled to occur 6 months from the date of the Encounter, up to a maximum of 20 appointments. The data comes from all [place] treatment facilities. Appointment Date/Time Appointment Type Appointme nt Facility Name Jan 06, 2024 09:30 AM AMBULATORY - NONE [place] [facility] Jan 07, 2024 09:00 AM AMBULATORY - MEDICINE LU[facility] Jan 30, 2024 07:45 AM AMBULATORY - SURGERY [facility] Jan 30, 2024 10:30 AM [facility] Feb 27, 2024 05:10 PM AMBULATORY - NONE [facility] Lab Results: +/- 30 days [...] Range Comment Jan 06, 2024 09:29 AM [facility] BASIC METABOLIC PANEL+MG Specimen Type: PLASMA No comment entered. Ordering Provider: BRINA BIRMINGHAM Report Released Date/Time: December 19, 2023 12:41 PM Reporting Lab: [facility] [phone] Performing Lab: [facility] [phone] CREATININE 0.8 mg/dL 0.7-1.2 UREA NITROGEN 13 mg/dL 8-26 GLUCOSE 95 mg/dL 70-100 SODIUM 141 mmol/L 136-145 POTASSIUM 3.8 mmol/L 3.5-5.1 CHLORIDE 107 mmol/L 98-107 CO2 26 mmol/L 22-29 CALCIUM 9.5 mg/dL 8.4-10.2 MAGNESIUM 2.0 mg/dL 1.6-2.6 ANION GAP 8 mmol/L 5-15 .CREAT EGFR(CKD-EPI) 88 >60 December 19, 2023 09:17 AM [facility] B 12 Specimen Type: SERUM No comment entered. Ordering Provider: BRINA BIRMINGHAM Report Released Date/Time: December 18, 2023 02:26 PM Reporting Lab: [facility] [phone] Performing Lab: [facility] [phone] B 12 304 pg/mL 213-816 December 19, 2023 09:17 AM [facility] FOLATE Specimen Type: SERUM No comment entered. Ordering Provider: BRINA BIRMINGHAM Report Released Date/Time: December 18, 2023 02:26 PM Reporting Lab: [facility] [phone] Performing Lab: [facility] [phone] FOLATE 8.3 ng/mL >7.0 December 19, 2023 09:17 AM [facility] LIPID PANEL,NON-FASTING Specimen Type: PLASMA No comment entered. Ordering Provider: BRINA BIRMINGHAM Report Released Date/Time: December 18, 2023 02:26 PM Reporting Lab: [facility] [phone] Performing Lab: [facility] [phone] CHOLESTEROL 109 mg/dL <199 .HDL 43 mg/dL >40 LDL CALCULATION 45 mg/dL <99 VLDL CALCULATION 21 mg/dL <29 NON HDL CHOLESTEROL 66 mg/dL <129 TRIG(NON FASTING) 107 mg/dL <149 December 19, 2023 09:17 AM [facility] CBC Specimen Type: BLOOD No comment entered. Ordering Provider: BRINA BIRMINGHAM Report Released Date/Time: December 18, 2023 02:26 PM Reporting Lab: [facility] [phone] Performing Lab: [facility] [phone] WBC 6.74 10*3/uL 4.0-11.0 RBC 4.45 10*6/uL L 4.6-6.2 HGB 11.6 g/dL L 13.5-17.9 HCT 36.7 L 41-54 MCV 82.5 fL 80-100 MCH 26.1 pg L 27-33 MCHC 31.6 g/dL L 32.0-37.5 PLT 188 10*3/uL 150-400 MPV 11.1 fL H 7.4-10.4 RDW 13.4 11.5-14.5 December 19, 2023 09:17 AM [facility] COMPREHENSIVE METABOLIC PANEL+MG Specimen Type: PLASMA No comment entered. Ordering Provider: BRINA BIRMINGHAM Report Released Date/Time: December 18, 2023 02:26 PM Reporting Lab: [facility] [phone] Performing Lab: [facility] [phone] CREATININE 0.8 mg/dL 0.7-1.2 UREA NITROGEN 11 [...] 88 >60 December 19, 2023 09:17 AM [facility] IRON GROUP Specimen Type: SERUM No comment entered. Ordering Provider: BRINA BIRMINGHAM Report Released Date/Time: December 19, 2023 12:41 PM Reporting Lab: [facility] [phone] Performing Lab: [facility] [phone] IRON 34 ug/dL L 65-175 TIBC,CALCULATED 364 [...] Source December 19, 2023 12:35 PM 133/75 [facility] December 19, 2023 10:04 AM 97.2 58 143/75 16 92 0 290.5 40 [facility] Social History: Smoking Status (Most current) and Tobacco Use (All prior to encounter date) This section includes the most current, and the historical, smoking and tobacco- related health factors from the [place] facility where the Encounter took place. Current Smoking Status This section includes the most current smoking, or tobacco-related health factor, from the [place] facility where the Encounter took place. Date/Time Current Smoking Status Comment Facil ity Apr 23, 2023 01:00 PM VA-TOBACCO NEVER USED [facility] Tobacco Use History This section includes a history of the smoking, or tobacco-related health factors, that were collected on or before the date of the Encounter. The data comes from the [place] facility where the Encounter took place. Date/Time Smoking Status/Tobacco Use Comment F acility Apr 24, 2022 09:43 AM VA-TOBACCO FORMER USER [facility] Apr 24, 2022 09:43 AM VA-TOBACCO QUIT 15 YRS OR MORE [facility] Feb 23, 2021 11:00 AM VA-TOBACCO FORMER USER [facility] Feb 23, 2021 11:00 AM VA-TOBACCO QUIT 15 YRS OR MORE [facility] Aug 04, 2019 03:40 PM VA-TOBACCO FORMER USER [facility] Aug 04, 2019 03:40 PM VA-TOBACCO QUIT 15 YRS OR MORE [facility] Jul 28, 2018 10:03 AM VA-TOBACCO FORMER USER [facility] Jul 28, 2018 10:03 AM VA-TOBACCO QUIT 15 YRS OR MORE [facility] Sep 12, 2017 09:15 AM FORMER TOBACCO USE >1Y <7Y [facility] November 30, 2016 07:51 AM FORMER TOBACCO USER 7Y OR GREATE R [facility] Sep 19, 2015 11:18 AM FORMER TOBACCO USE >1Y <7Y [facility] December 03, 2014 07:58 AM FORMER TOBACCO USER 7Y OR GREATE R [facility] December 01, 2013 07:39 AM LIFETIME NON-TOBACCO USER [facility] May 07, 2012 07:53 AM FORMER TOBACCO USE >1Y <7Y [facility] Aug 01, 2011 08:59 AM FORMER TOBACCO USE >1Y <7Y [facility] Jul 24, 2010 07:49 AM CURRENT TOBACCO USER [facility] Aug 03, 2009 10:18 AM CURRENT TOBACCO USER [facility] Aug 23, 2008 07:54 AM CURRENT TOBACCO USER [facility] Aug 15, 2007 07:52 AM CURRENT TOBACCO USER [facility] 2006 07:43 AM FORMER TOBACCO USE >1Y <7Y [facility] Advance Directives: All historical and current Section Date Range: From patient's date of to the date document was created. This section includes ALL of a patient's completed or amended [place] Advance and Rescinded Directives. The entries below indicate that a directive exists for the patient, but an actual copy is not included with this document. The data comes from all [place] facilities. Date Advance Directives Provider Source Mar 20, 2023 ADVANCE DIRECTIVE DISCUSSION ELY BERTRAND [facility] Mar 20, 2023 ADVANCE DIRECTIVE ELY [facility]ERTRANDFORMERLY [facility] Aug 02, 2003 ADVANCE DIRECTIVE SHANDA CESARFORMERLY [facility] Encounter Notes: All associated encounter notes This section contains the clinical notes associated to the Encounter. Date/Time Encounter Note(s) Provider Source December 19, 2023 11:27 AM AUDIOLOGY NOTE: LOCAL TITLE: AUDIOLOGY CLINIC NOTE STANDARD TITLE: AUDIOLOGY NOTE DATE OF NOTE: DECEMBER 19, 2023@11:27 ENTRY DATE: DECEMBER 19, 2023@11:27:38 AUTHOR: JACOBO GARRISON COSIGNER: URGENCY: STATUS: COMPLETED SUBJECT: HAE DIAGNOSIS: Encounter for examination of ears and hearing Sensorineural hearing loss, bilateral Tinnitus - Bilateral REASON FOR VISIT: HEARING EVALUATION AND HEARING AID SELECTION, 60 MINUTES: was seen in the clinic today for a comprehensive audiologic evaluation, hearing aid selection, and relevant counseling. Location of visit (Room Number): 2S-116 The was last seen in this clinic in 2020; his last hearing test was in 2020. The is Service Connected for Hearing Loss / Tinnitus. was accompanied by his daughter. The currently wears the following hearing aids: 09/24/18 GN RESOUND LINX QUATTRO TS61 MINI SHARI-R R [id number] 09/18/21 618 MPLS 09/24/18 GN RESOUND LINX QUATTRO TS61 MINI SHARI-R L [id number] 09/18/21 61 MPLS HEALTH HISTORY: [place] had a stroke one year ago and mostly stopped wearing his aids. [ x ] Denies any significant otologic history. PROCEDURES: OTOSCOPY: Free of excessive cerumen. Normal appearing TM's and canals. AUDIOMETRICS: Air conduction, bone conduction and speech testing were completed bilaterally. Transducer: Insert phones Reliability: Good Results: See Audiogram Display or DOLLY Database WORD RECOGNITION: Recorded W-22 word list RIGHT EAR: 72% Level: 80/50* dB LEFT EAR: 60% Level: 85/55* dB SUMMARY: Hearing is worse compared to the last examination. STANDARD CURRICULUM COUNSELING ON AMPLIFICATION AND RECOMMENDATIONS (30 Minutes): doesn't like the way his glasses interact with SHARI aids. He would prefer to try an in-the-ear style. - is a good candidate for continued hearing aid use. - [place] was counseled on his type, degree and configuration of hearing loss using a standard curriculum. - The 's hearing loss has progressed currently to the extent that it affects full participation in the provision of health care as noted today in our discussions. Hearing aids are medically indicated to treat the 's auditory conditions. - Different styles/technologies were reviewed with consideration given to veterans listening situations and lifestyle needs. - The has good vision, memory, and dexterity for hearing aid use. - [place] counseled using a standard curriculum on realistic expectations associated with adjusting to hearing aids, use of the devices, VA procedures and trial period. - [place] counseled using a standard curriculum on effective communication strategies such as maintaining face to face contact when speaking, eliminating background noise when possible, and talking at a close distance. - Earmold impressions taken bilaterally without complication. Otoscopy normal post earmold impression procedure, AU. - Hearing aids selected and ordered today: Model: INSIO C&G 7AX HS-R Warranty: 3YR Circuit: INSIO C&G 7AX HS-R Options: TWIN PHONE [STD], DIRECTIONAL MICROPHONE [STD], INSIO CHARGE-GO AX BOX TOE BUFFER [STD], FEEDBACK CANCELLATION [STD], SPEECH PROCESSING ALGORITHIM [STD], ACTIVE OR ADAPTIVE NOISE REDUCTION [STD], TINNITUS THERAPY [STD], MEMORY BUTTON [STD], AUTOMATIC FUNCTION [STD] Shell Color: BEIGE Shell Options: CANAL DISTRIBUTION DESIGNER, LARGE R-L LETTERS Faceplate: BEIGE Dexterity: REMOVAL STRING Battery: LI-ION Wax Prevent.: QUICKGUARD Miscellaneous: BUILD TO FIT, SENDING NEW IMPRESSION Remote: MINIPOCKET REMOTE - The 's current Linx hearing aids were upon arrival. Aids needed new waxtraps, domes, retention tails. Aids were cleaned, checked, firmware updated, reprogrammed to match today's Audiogram, and are in good working order. PLAN: will be scheduled for a 60-minute hearing aid fitting appointment. PATIENT IS IN AGREEMENT WITH THIS PLAN. /chadwick/ KJ FRENCH STAFF [place] Signed: 12/19/2023 12:[address] [facility]
--- OUTSIDE RECORDS SUMMARY | 2024-02-17 12:51 | XMS_ITS | Encounter Summary ---
Author Name [facility] [place] [facility] [place] [facility] [place] [facility] [place] Address [address] [place] [address] Care Team Providers Care Director Of Extension Work Name Role Phone BRINA BIRMINGHAM Primary Care [...] PLATI LULA BLUE COMP Jul 22, 2016 [id number] [phone] JACK COHN PATIENT ANTHEM [place] PREFERRED PROVIDER ORGANIZAT ION (PPO) PLATI NUM BLUE COMP Jul 22, 2016 [id number] [phone] JACK COHN PATIENT ANTHEM [place] PREFERRED PROVIDER ORGANIZAT ION (PPO) PLATI NUM BLUE COMP Jul 22, 2016 [id number] [phone] JACK COHN PATIENT [place] PREFERRED PROVIDER ORGANIZAT ION (PPO) [place] [employer] BLUE COMP Jul 22, 2016 [id number] [phone] JACK COHN PATIENT BCBS [facility] ([place]) MEDICARE ADVANTAGE [facility] (WNR) Jul 22, 2016 [id number] [phone] JACK COHN PATIENT [place] [facility] (WNR) MEDICARE ADVANTAGE [facility] ([place]NR) Jul 22, 2016 [id number] [phone] JACK COHN PATIENT MEDICARE ([place]) MEDICARE () PART A November 19, 2004 PART A [id number] JACK COHN PATIENT MEDICARE ([place]) MEDICARE (M) PART B November 19, 2004 PART B [id number] [phone] JACK COHN PATIENT PRIME THERAPEUTI CS RX PRESCRIPT ION BCBS [facility] Jul 22, 2016 [id number] [phone] JACK COHN PATIENT Selected Encounter This section includes the information on record at [place] for the Encounter. Date/Time Encounter Type Encounter Description Reason Provider Source December 20, 2023 10:49 AM QNHP OL DIG ASSMT&MGMT 11 CLINICAL PHARMACY ICD-10-CM Z79.01 correction (current) use of anticoagulants STACY GREGG [facility] Encounter Template Text not used by [place] Assessments - Encounter Diagnoses This section includes the primary and secondary diagnoses documented for the Encounter. Date/Time Primary/Secondary Diagnosis Diagnosis Name Provider Source December 20, 2023 11:01 AM PRIMARY terminal makeup operator (current) use of anticoagulants STACY GREGG [facility] December 20, 2023 11:01 AM SECONDARY Encounter for therapeutic drug level monitoring STACY GREGG [facility] December 20, 2023 11:01 AM SECONDARY Unspecified atrial fibrillation STACY GREGG [facility] Plan of Treatment: Future Appointments (+ 6 months) and Future Tests (+/- 45 days) The Plan of Treatment section includes future care activities for the patient from all [place] treatmentfacilities. This section includes future appointments and future orders which are active, pending or scheduled. Future Appointments This section includes appointments that were scheduled to occur 6 months from the date of the Encounter, up to a maximum of 20 appointments. The data comes from all [place] treatment facilities. Appointment Date/Time Appointment Type Appointme nt Facility Name Jan 06, 2024 09:30 AM AMBULATORY - NONE [place] [facility] Jan 07, 2024 09:00 AM AMBULATORY - MEDICINE [facility] Jan 30, 2024 07:45 AM AMBULATORY - SURGERY [facility] Jan 30, 2024 10:30 AM [place]UL[facility]ORY - NONE [place] [facility] Feb 27, 2024 05:10 PM [facility] Lab Results: +/- 30 days of the encounter This section includes the Chemistry and Hematology Lab Results on record with [place] for the patient. Radiology Reports and Pathology Reports are provided separately, in subsequent sections. Lab Results This section contains the Chemistry/Hematology Results that were resulted 30 days before or 30 daysafter the date of the Encounter. Date/Time Source Result Type Result - Unit Interpretation Reference Range Comment Jan 06, 2024 09:[address] [facility] BASIC METABOLIC PANEL+MG Specimen Type: PLASMA No comment entered. Ordering Provider: BRINA BIRMINGHAM Report Released Date/Time: December 19, 2023 12:41 PM Reporting Lab: [facility] [id number] Performing Lab: [facility] [phone] CREATININE 0.8 mg/dL 0.7-1.2 UREA NITROGEN 13 mg/dL 8-26 GLUCOSE 95 mg/dL 70-100 SODIUM 141 mmol/L 136-145 POTASSIUM 3.8 mmol/L 3.5-5.1 CHLORIDE 107 mmol/L 98-107 CO2 26 mmol/L 22-29 CALCIUM 9.5 mg/dL 8.4-10.2 MAGNESIUM 2.0 mg/dL 1.6-2.6 ANION GAP 8 mmol/L 5-15 .CREAT EGFR(CKD-EPI) 88 >60 December 19, 2023 09:[address] [facility] B 12 Specimen Type: SERUM No comment entered. Ordering Provider: BRINA BIRMINGHAM Report Released Date/Time: December 18, 2023 02:26 PM Reporting Lab: [facility] [id number] Performing Lab: [facility] [phone] B 12 304 pg/mL 213-816 December 19, 2023 09:[address] [facility] FOLATE Specimen Type: SERUM No comment entered. Ordering Provider: BRINA BIRMINGHAM Report Released Date/Time: December 18, 2023 02:26 PM Reporting Lab: [facility] [id number] Performing Lab: [facility] [phone] FOLATE 8.3 ng/mL >7.0 December 19, 2023 09:[address] [facility] LIPID PANEL,NON-FASTING Specimen Type: PLASMA No comment entered. Ordering Provider: BRINA BIRMINGHAM Report Released Date/Time: December 18, 2023 02:26 PM Reporting Lab: [facility] [phone] Performing Lab: [facility] [address] CHOLESTEROL 109 mg/dL <199 .HDL 43 mg/dL >40 LDL CALCULATION 45 mg/dL <99 VLDL CALCULATION 21 mg/dL <29 NON HDL CHOLESTEROL 66 mg/dL <129 TRIG(NON FASTING) 107 mg/dL <149 December 19, 2023 09:[address] [facility] CBC Specimen Type: BLOOD No comment entered. Ordering Provider: BRINA BIRMINGHAM Report Released Date/Time: December 18, 2023 02:26 PM Reporting Lab: [facility] [phone] Performing Lab: [facility] [address] WBC 6.74 10*3/uL 4.0-11.0 RBC 4.45 10*6/uL L 4.6-6.2 HGB 11.6 g/dL L 13.5-17.9 HCT 36.7 L 41-54 MCV 82.5 fL 80-100 MCH 26.1 pg L 27-33 MCHC 31.6 g/dL L 32.0-37.5 PLT 188 10*3/uL 150-400 MPV 11.1 fL H 7.4-10.4 RDW 13.4 11.5-14.5 December 19, 2023 09:[address] [facility] COMPREHENSIVE METABOLIC PANEL+MG Specimen Type: PLASMA No comment entered. Ordering Provider: BRINA BIRMINGHAM Report Released Date/Time: December 18, 2023 02:26 PM Reporting Lab: [facility] [phone] Performing Lab: [facility] [phone] CREATININE 0.8 mg/dL 0.7-1.2 UREA NITROGEN 11 [...] 88 >60 December 19, 2023 09:[address] [facility] IRON GROUP Specimen Type: SERUM No comment entered. Ordering Provider: BRINA BIRMINGHAM Report Released Date/Time: December 19, 2023 12:41 PM Reporting Lab: [facility] [phone] Performing Lab: [facility] [phone] IRON 34 ug/dL L 65-175 TIBC,CALCULATED 364 ug/dL 250-425 FERRITIN 11.9 ng/mL L 21.8-274.7 IRON SATURATION 9 L 20-50 TRANSFERRIN 291 mg/dL 163-382 Social History: Smoking Status (Most current) and Tobacco Use (All prior to encounter date) This section includes the most current, and the historical, smoking and tobacco- related health factors from the [facility] where the Encounter took place. Current Smoking Status This section includes the most current smoking, or tobacco-related health factor, from the [place] facility where the Encounter took place. Date/Time Current Smoking Status Comment Facil ity Apr 23, 2023 01:00 PM VA-TOBACCO NEVER USED [facility] Tobacco Use History This section includes a history of the smoking, or tobacco-related health factors, that were collected on or before the date of the Encounter. The data comes from the [place] facility where the Encounter took place. Date/Time Smoking Status/Tobacco Use Comment F acility Apr 24, 2022 09:43 AM VA-TOBACCO FORMER USER [facility] Apr 24, 2022 09:43 AM VA-TOBACCO QUIT [address] [facility] Feb 23, 2021 11:00 AM VA-TOBACCO FORMER USER [facility] Feb 23, 2021 11:00 AM VA-TOBACCO QUIT [address] [facility] Aug 04, 2019 03:40 PM VA-TOBACCO FORMER USER [facility] Aug 04, 2019 03:40 PM VA-TOBACCO QUIT [address] [facility] Jul 28, 2018 10:03 AM VA-TOBACCO FORMER USER [facility] Jul 28, 2018 10:03 AM VA-TOBACCO QUIT [address] [facility] Sep 12, 2017 09:15 AM FORMER TOBACCO USE >1Y <7Y [facility] November 30, 2016 07:51 AM FORMER TOBACCO USER 7Y OR GREATE R [facility] Sep 19, 2015 11:18 AM FORMER TOBACCO USE >1Y <7Y [facility] December 03, 2014 07:58 AM FORMER TOBACCO USER 7Y OR GREATE R [facility] December 01, 2013 07:39 AM LIFETIME NON-TOBACCO USER [facility] May 07, 2012 07:53 AM FORMER TOBACCO USE >1Y <7Y [facility] Aug 01, 2011 08:59 AM FORMER TOBACCO USE >1Y <7Y [facility] Jul 24, 2010 07:49 [address] TOBACCO USER [facility] Aug 03, 2009 10:18 AM CURRENT TOBACCO USER [facility] Aug 23, 2008 07:54 AM CURRENT TOBACCO USER [facility] Aug 15, 2007 07:52 AM CURRENT TOBACCO USER [facility] 2006 07:43 AM FORMER TOBACCO USE >1Y <7Y [facility] Advance Directives: All historical and current Section Date Range: From patient's date of to the date document was created. This section includes ALL of a patient's completed or amended [place] Advance and Rescinded Directives. The entries below indicate that a directive exists for the patient, but an actual copy is not included with this document. The data comes from all [place] facilities. Date Advance Directives Provider Source Mar 20, 2023 ADVANCE DIRECTIVE DISCUSSION ELY BERTRAND [facility] Mar 20, 2023 ADVANCE DIRECTIVE ELY BERTRAND [facility] Aug 02, 2003 ADVANCE DIRECTIVE SHANDA CESAR [facility] Encounter Notes: All associated encounter notes This section contains the clinical notes associated to the Encounter. 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 and has HHN help - Prior major bleeds: None - Prior anticoagulants: None - Start date: 05/2023 - Anticipated duration: Indefinite - [id number] = 5 (age +2, CVA +2, HTN) = moderate risk - HASBLED = 2 (age, CVA) = moderate risk - Notes: - Best to speak with daughter (Raine Bowens at [phone]) - Care Coordination: - Patient resides at [facility] who are currently helping set-up and administer meds (phone: [phone], fax: [phone]) - HEALTH CONSULTANT: [facility] (phone: [phone], fax: [phone]) Per prior notes: HHN Ele (phone: [phone]) will be starting w/ pt and possibly switch to [facility] set-up meds with pt taking on his own. SUBJECTIVE/OBJECTIVE: Obtained from chart review. Dashboard flags: >2g Hgb drop PACT f/u 12/19/23: His hemoglobin is on the low side. Denies any outward signs of bleeding or black stools. No abdominal pain. ASSESSMENT AND PLAN #ANTONIETA: GI consult, iron supplementation Age: 83 Height: 71.5 in [181.6 cm] (04/23/2023 13:11) Weight: 290.5 lb [131.77 kg] (12/19/2023 10:04) Collection DT Specimen Test Name Result Units Ref Range 12/19/2023 09:17 PLASMA CREATININE 0.8 mg/dL 0.7 - 1.2 06/04/2023 local 0.8 05/30/2023 10:03 PLASMA CREATININE 0.8 mg/dL 0.7 - 1.2 04/23/2023 15:10 PLASMA CREATININE 0.7 mg/dL 0.7 - 1.2 03/12/2023 local 0.8 Cockcroft & Gault (actual body weight) = 130 mL/min Collection DT Spec WBC HGB HCT PLT MCV 12/19/2023 09:17 BLOOD 6.74 11.6 L 36.7 L 188 82.5 06/04/2023 local 14.1 121 04/23/2023 15:10 BLOOD 6.57 13.8 40.4 L 191 87.6 03/12/2023 local 14.3 148 11/08/2022 09:36 BLOOD 7.41 15.1 46.3 175 86.5 ASSESSMENT/PLAN: Concerns with Hgb decrease noted. PCP is already aware and monitoring. GI consult has been entered and pt starting ferrous gluconate 324mg every other day pending mailout. PCP planning for CBC recheck in 6 months. - Continue anticoagulation at current dose. - Anemia monitored by PCP; starting PO iron supplement and GI consult entered. - Monitor dashboard for labs, drug interactions, and compliance. - Dashboard flags reviewed/cleared. - Lab monitoring frequency defined by dashboard or as clinically indicated. - Rx reviewed. Time Spent: 15 min /chadwick/ ALIN GREGG PHARMD CLINICAL PHARMACIST Signed: 12/20/2023 11:[address] [facility]
--- OUTSIDE RECORDS SUMMARY | 2024-02-17 12:51 | XMS_ITS | Encounter Summary ---
Author Name [facility] [place] Address [address] [place] [address] Care Team Providers Care Career Representative Name Role Phone BRINA BIRMINGHAM Primary Care [...] PLATI LULA BLUE COMP Jul 22, 2016 [id number] [phone] JACK COHN PATIENT ANTHEM BCBS [place] PREFERRED PROVIDER ORGANIZAT ION (PPO) PLATI NUM BLUE COMP Jul 22, 2016 [id number] [phone] JAKC COHN PATIENT ANTHEM [place] PREFERRED PROVIDER ORGANIZAT ION (PPO) PLATI NUM BLUE COMP Jul 22, 2016 [id number] [phone] JACK COHN PATIENT BCBS [place] PREFERRED PROVIDER ORGANIZAT ION (PPO) [place] [employer] BLUE COMP Jul 22, 2016 [id number] [phone] JACK COHN [place] [facility] ([place]NR) MEDICARE ADVANTAGE [facility] (WNR) Jul 22, 2016 [id number] [phone] JACK COHN [place] [facility] ([place]) MEDICARE ADVANTAGE [facility] (WNR) Jul 22, 2016 [id number] [phone] JACK COHN MEDICARE ([place]) MEDICARE (M) PART A November 19, 2004 PART A [id number] JACK COHN MEDICARE ([place]) MEDICARE (M) PART B November 19, 2004 PART B [id number] JACK COHN PATIENT PRIME THERAPEUTI CS RX PRESCRIPT ION BCBS [facility] Jul 22, 2016 [id number] [phone] JACK COHN PATIENT Selected Encounter This section includes the information on record at [place] for the Encounter. Date/Time Encounter Type Encounter Description Reason Provider Source Dec 23, 2023 12:44 PM QNHP OL DIG ASSMT&MGMT 11-20 CLINICAL PHARMACY ICD-10-CM Z79.01 jail (current) use of anticoagulants BEN CRABTREE [facility] Encounter Template Text not used by [place] Assessments - Encounter Diagnoses This section includes the primary and secondary diagnoses documented for the Encounter. Date/Time Primary/Secondary Diagnosis Diagnosis Name Provider Source Dec 23, 2023 12:47 PM PRIMARY jail (current) use of anticoagulants BEN CRABTREE [facility] Dec 23, 2023 12:47 PM SECONDARY Encounter for therapeutic drug level monitoring BEN CRABTREE [facility] Dec 23, 2023 12:47 PM SECONDARY Unspecified atrial fibrillation BEN CRABTREE [facility] Plan of Treatment: Future [...] 09:30 AM AMBULATORY - NONE [place] [facility] Jan 07, 2024 09:00 AM AMBULATORY - MEDICINE LUISA WILLIAM [facility] Jan 30, 2024 07:45 AM AMBULATORY - SURGERY ADAN JIMENEZS [facility] Jan 30, 2024 10:30 AM AMBULATORY - NONE [place] [facility] Feb 27, 2024 05:10 PM [facility] Lab Results: +/- 30 days of [...] Range Comment Jan 06, 2024 09:29 AM [facility] BASIC METABOLIC PANEL+MG Specimen Type: PLASMA No comment entered. Ordering Provider: BRINA BIRMINGHAM Report Released Date/Time: December 19, 2023 12:41 PM Reporting Lab: [facility] [id number] Performing Lab: [facility] [phone] CREATININE 0.8 mg/dL 0.7-1.2 UREA NITROGEN 13 mg/dL 8-26 GLUCOSE 95 mg/dL 70-100 SODIUM 141 mmol/L 136-145 POTASSIUM 3.8 mmol/L 3.5-5.1 CHLORIDE 107 mmol/L 98-107 CO2 26 mmol/L 22-29 CALCIUM 9.5 mg/dL 8.4-10.2 MAGNESIUM 2.0 mg/dL 1.6-2.6 ANION GAP 8 mmol/L 5-15 .CREAT EGFR(CKD-EPI) 88 >60 December 19, 2023 09:17 AM [facility] B 12 Specimen Type: SERUM No comment entered. Ordering Provider: BRINA BIRMINGHAM Report Released Date/Time: December 18, 2023 02:26 PM Reporting Lab: [facility] [phone] Performing Lab: [facility] [address] B 12 304 pg/mL 213-816 December 19, 2023 09:17 AM [facility] FOLATE Specimen Type: SERUM No comment entered. Ordering Provider: BRINA BIRMINGHAM Report Released Date/Time: December 18, 2023 02:26 PM Reporting Lab: [facility] [address] Performing Lab: [facility] [address] FOLATE 8.3 ng/mL >7.0 December 19, 2023 09:17 AM [facility] LIPID PANEL,NON-FASTING Specimen Type: PLASMA No comment entered. Ordering Provider: BRINA BIRMINGHAM Report Released Date/Time: December 18, 2023 02:26 PM Reporting Lab: [facility] [phone] Performing Lab: [facility] [address] CHOLESTEROL 109 mg/dL <199 .HDL 43 mg/dL >40 LDL CALCULATION 45 mg/dL <99 VLDL CALCULATION 21 mg/dL <29 NON HDL CHOLESTEROL 66 mg/dL <129 TRIG(NON FASTING) 107 mg/dL <149 December 19, 2023 09:17 AM [facility] CBC Specimen Type: BLOOD No comment entered. Ordering Provider: BRINA BIRMINGHAM Report Released Date/Time: December 18, 2023 02:26 PM Reporting Lab: [facility] [phone] Performing Lab: [facility] [address] WBC 6.74 10*3/uL 4.0-11.0 RBC 4.45 10*6/uL L 4.6-6.2 HGB 11.6 g/dL L 13.5-17.9 HCT 36.7 L 41-54 MCV 82.5 fL 80-100 MCH 26.1 pg L 27-33 MCHC 31.6 g/dL L 32.0-37.5 PLT 188 10*3/uL 150-400 MPV 11.1 fL H 7.4-10.4 RDW 13.4 11.5-14.5 December 19, 2023 09:17 AM [facility] COMPREHENSIVE METABOLIC PANEL+MG Specimen Type: PLASMA No comment entered. Ordering Provider: BRINA BIRMINGHAM Report Released Date/Time: December 18, 2023 02:26 PM Reporting Lab: [facility] [phone] Performing Lab: [facility] [address] CREATININE 0.8 mg/dL 0.7-1.2 UREA NITROGEN 11 [...] 88 >60 December 19, 2023 09:17 AM [facility] IRON GROUP Specimen Type: SERUM No comment entered. Ordering Provider: BRINA BIRMINGHAM Report Released Date/Time: December 19, 2023 12:41 PM Reporting Lab: [facility] [phone] Performing Lab: [facility] [address] IRON 34 ug/dL L 65-175 TIBC,CALCULATED 364 ug/dL 250-425 FERRITIN 11.9 ng/mL L 21.8-274.7 IRON SATURATION 9 L 20-50 TRANSFERRIN 291 mg/dL 163-382 Social History: Smoking Status (Most current) and Tobacco Use (All prior to encounter date) This section includes the most current, and the historical, smoking and tobacco- related health factors from the [place] facility where the Encounter took place. Current Smoking Status This section includes the most current smoking, or tobacco-related health factor, from the [place] facility where the Encounter took place. Date/Time Current Smoking Status Comment Facil ity Apr 23, 2023 01:00 PM VA-TOBACCO NEVER USED [facility] Tobacco Use History This section includes a history of the smoking, or tobacco-related health factors, that were collected on or before the date of the Encounter. The data comes from the [place] facility where the Encounter took place. Date/Time Smoking Status/Tobacco Use Comment F acility Apr 24, 2022 09:43 AM VA-TOBACCO FORMER USER [facility] Apr 24, 2022 09:43 AM VA-TOBACCO QUIT 15 YRS OR MORE [facility] Feb 23, 2021 11:00 AM VA-TOBACCO FORMER USER [facility] Feb 23, 2021 11:00 AM VA-TOBACCO QUIT 15 YRS OR MORE [facility] Aug 04, 2019 03:40 PM VA-TOBACCO FORMER USER [facility] Aug 04, 2019 03:40 PM VA-TOBACCO QUIT 15 YRS OR MORE [facility] Jul 28, 2018 10:03 AM VA-TOBACCO FORMER USER [facility] Jul 28, 2018 10:03 AM VA-TOBACCO QUIT 15 YRS OR MORE [facility] Sep 12, 2017 09:15 AM FORMER TOBACCO USE >1Y <7Y [facility] November 30, 2016 07:51 AM FORMER TOBACCO USER 7Y OR GREATE R [facility] Sep 19, 2015 11:18 AM FORMER TOBACCO USE >1Y <7Y [facility] December 03, 2014 07:58 AM FORMER TOBACCO USER 7Y OR GREATE R [facility] December 01, 2013 07:39 AM LIFETIME NON-TOBACCO USER [facility] May 07, 2012 07:53 AM FORMER TOBACCO USE >1Y <7Y [facility] Aug 01, 2011 08:59 AM FORMER TOBACCO USE >1Y <7Y [facility] Jul 24, 2010 07:49 AM CURRENT TOBACCO USER [facility] Aug 03, 2009 10:18 AM CURRENT TOBACCO USER [facility] Aug 23, 2008 07:54 AM CURRENT TOBACCO USER [facility] Aug 15, 2007 07:52 AM CURRENT TOBACCO USER [facility] 2006 07:43 AM FORMER TOBACCO USE >1Y <7Y [facility] Advance Directives: All historical and current Section Date Range: From patient's date of to the date document was created. This section includes ALL of a patient's completed or amended [place] Advance and Rescinded Directives. The entries below indicate that a directive exists for the patient, but an actual copy is not included with this document. The data comes from all [facility]. Date Advance Directives Provider Source Mar 20, 2023 ADVANCE DIRECTIVE DISCUSSION ELY BERTRAND [facility] Mar 20, 2023 ADVANCE DIRECTIVE ELY BERTRAND [facility] Aug 02, 2003 ADVANCE DIRECTIVE SHANDA CESAR [facility] Encounter Notes: All associated encounter notes This section contains the clinical notes associated to the Encounter. 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) - Hx cognitive impairment, lives at [facility] and has HHN help - Prior major bleeds: None - Prior anticoagulants: None - Start date: 05/2023 - Anticipated duration: Indefinite - [id number] = 5 (age +2, CVA +2, HTN) = moderate risk - HASBLED = 2 (age, CVA) = moderate risk - Notes: - Best to speak with daughter (Raine Bowens at [phone]) - Care Coordination: - Patient resides at [facility] who are currently helping set-up and administer meds (phone: [phone], fax: [phone]) - WRECKING CRANE ENGINE OPERATOR: [facility] (phone: [phone], fax: [phone]) Per prior notes: YESIKA Marlow (phone: [phone]) will be starting w/ pt and possibly switch to HHN set-up meds with pt taking on his own. S/O: ---- Obtained by chart review. Procedure:dual EGD/colonoscopy Date: TBD Surgical bleed risk: High Thromboembolic/Bleed Risk: see above Dashboard flags: none LABS ---- Age: 83 Weight: 290.5 lb [131.77 kg] (12/19/2023 10:04) Height: 71.5 in [181.6 cm] (04/23/2023 13:11) CREATININE 0.8 PLASMA (12/19/23 09:17) 0.8 PLASMA (05/30/23 10:03) 0.7 PLASMA (04/23/23 15:10) Cockcroft & Gault (Actual body weight) = 130 mL/min Collection DT Spec WBC HGB HCT PLT MCV 12/19/2023 09:17 BLOOD 6.74 11.6 L 36.7 L 188 82.5 04/23/2023 15:10 BLOOD 6.57 13.8 40.4 L 191 87.6 Collection DT Specimen Test Name Result Units Ref Range 12/19/2023 09:17 PLASMA BILIRUBIN, TOTAL 0.5 mg/dL 0.2 - 1.2 12/19/2023 09:17 PLASMA ALKALINE PHOSPHAT 35 L U/L 40 - 150 12/19/2023 09:17 PLASMA AST/SGOT 22 U/L Ref: <=34 12/19/2023 09:17 PLASMA ALT/SGPT 11 U/L Ref: <=55 A/P: ---- No enoxaparin bridging warranted with DOACs. If this procedure is rescheduled and new instructions are needed OR changes in health (ie: clotting complications, stroke) occur between now and the time of the procedure, anticoagulation clinic should be contacted. If procedure is rescheduled, these recommendations can be applied to new procedure date ONLY IF there are no changes to renal function or health (new thromboembolic event/CVA, recent clotting complications) since consult completion. A new consult should be submitted for reschedules if recent thromboembolic event/CVA occurred or there are renal function changes. DOAC should not be held if procedure is cancelled. HIGH Bleed Risk GI (edox,apix,de) & CrCl >30/>25 (apix): - Do not take for 2 days before procedure, the day of procedure, OR the day after the procedure. The last preoperative dose is 3 days before the procedure. - If there are no major bleeding complications, resume 48-72 hours later (2 or 3 days after the procedure preferably 2 days) at the usual dose unless otherwise instructed by the proceduralist. -GI RN team responsible for educating patient on recommendations at pre-op call. If there are questions or concerns about holding anticoagulation, patient should be referred to anticoag clinic at [phone], option 3. Time: 15 min /chadwick/ BEN CRABTREE [facility] Anticoagulation Clinical Pharmacist Signed: 12/23/2023 12:47 BEN CRABTREE [facility]
--- OUTSIDE RECORDS SUMMARY | 2024-02-17 12:51 | XMS_ITS | Encounter Summary ---
Author Name [facility] [place] Address [address] [place] [address] Care Team Providers Care Comsec Manager Name Role Phone BRINA BIRMINGHAM Primary Care [...] PLATI LULA BLUE COMP Jul 22, 2016 [id number] [phone] JACK COHN PATIENT ANTHEM [place] PREFERRED PROVIDER ORGANIZAT ION (PPO) PLATI NUM BLUE COMP Jul 22, [id number] [phone] JACK COHN PATIENT ANTHEM [place] PREFERRED PROVIDER ORGANIZAT ION (PPO) PLATI NUM BLUE COMP Jul 22, 2016 [id number] [phone] JACK COHN PATIENT [place] PREFERRED PROVIDER ORGANIZAT ION (PPO) PLATI NUM BLUE COMP Jul 22, 2016 [id number] [phone] JACK COHN [place]IENT [place] [facility] ([place]NR) MEDICARE ADVANTAGE [facility] (WNR) Jul 22, 2016 [id number] [phone] JACK COHN [place] [facility] ([place]NR) MEDICARE ADVANTAGE [facility] ([place]NR) Jul 22, 2016 [id number] [phone] JACK COHN MEDICARE ([place]) MEDICARE (M) PART A November 19, 2004 PART A [id number] [phone] JACK COHN PATIENT MEDICARE ([place]) MEDICARE (M) PART B November 19, 2004 PART B [id number] JACK COHN PATIENT PRIME THERAPEUTI CS RX PRESCRIPT ION BCBS [facility] Jul 22, 2016 [id number] [phone] JACK COHN PATIENT Selected Encounter This section includes the information on record at [place] for the Encounter. Date/Time Encounter Type Encounter Description Reason Pro vider Source Dec 30, 2023 11:34 AM Outpatient Encounter TELEPHONE PRIMARY CARE I[facility] Encounter Template Text not used by [...] 09:30 AM AM[place]ORY - [place] [facility] Jan 07, 2024 09:00 AM AMBULATORY - MEDICINE LUISA WILLIAM [facility] Jan 30, 2024 07:45 AM AMBULATORY - SURGERY [place] [facility] Jan 30, 2024 10:30 AM AMBULATORY - NONE [place] [facility] Feb 27, 2024 05:10 PM [facility] Lab Results: +/- 30 days of the encounter This section includes the Chemistry and Hematology Lab Results on record with [place] for the patient. Radiology Reports and Pathology Reports are provided separately, in subsequent sections. Lab Results This section contains the Chemistry/Hematology Results that were resulted 30 days before or 30 daysafter the date of the Encounter. Date/Time Source Result Type Result - Unit Interpretation Reference Range Comment Jan 06, 2024 09:29 AM [facility] BASIC METABOLIC PANEL+MG Specimen Type: PLASMA No comment entered. Ordering Provider: BRINA BIRMINGHAM Report Released Date/Time: December 19, 2023 12:41 PM Reporting Lab: [facility] [id number] Performing Lab: [facility] [address] CREATININE 0.8 mg/dL 0.7-1.2 UREA NITROGEN 13 mg/dL 8-26 GLUCOSE 95 mg/dL 70-100 SODIUM 141 mmol/L 136-145 POTASSIUM 3.8 mmol/L 3.5-5.1 CHLORIDE 107 mmol/L 98-107 CO2 26 mmol/L 22-29 CALCIUM 9.5 mg/dL 8.4-10.2 MAGNESIUM 2.0 mg/dL 1.6-2.6 ANION GAP 8 mmol/L 5-15 .CREAT EGFR(CKD-EPI) 88 >60 December 19, 2023 09:17 AM [facility] B 12 Specimen Type: SERUM No comment entered. Ordering Provider: BRINA BIRMINGHAM Report Released Date/Time: December 18, 2023 02:26 PM Reporting Lab: [facility] [phone] Performing Lab: [facility] [phone] B 12 304 pg/mL 213-816 December 19, 2023 09:17 AM [facility] FOLATE Specimen Type: SERUM No comment entered. Ordering Provider: BRINA BIRMINGHAM Report Released Date/Time: December 18, 2023 02:26 PM Reporting Lab: [facility] [address] Performing Lab: [facility] [address] FOLATE 8.3 ng/mL >7.0 December 19, 2023 09:17 AM [facility] LIPID PANEL,NON-FASTING Specimen Type: PLASMA No comment entered. Ordering Provider: VINNIE,BRINA B Report Released Date/Time: December 18, 2023 02:26 PM Reporting Lab: [facility] [address] Performing Lab: [facility] [address] CHOLESTEROL 109 mg/dL <199 .HDL 43 mg/dL >40 LDL CALCULATION 45 mg/dL <99 VLDL CALCULATION 21 mg/dL <29 NON HDL CHOLESTEROL 66 mg/dL <129 TRIG(NON FASTING) 107 mg/dL <149 December 19, 2023 09:17 AM [facility] CBC Specimen Type: BLOOD No comment entered. Ordering Provider: BRINA BIRMINGHAM Report Released Date/Time: December 18, 2023 02:26 PM Reporting Lab: [facility] [address] Performing Lab: [facility] [address] WBC 6.74 10*3/uL 4.0-11.0 RBC 4.45 10*6/uL L 4.6-6.2 HGB 11.6 g/dL L 13.5-17.9 HCT 36.7 L 41-54 MCV 82.5 fL 80-100 MCH 26.1 pg L 27-33 MCHC 31.6 g/dL L 32.0-37.5 PLT 188 10*3/uL 150-400 MPV 11.1 fL H 7.4-10.4 RDW 13.4 11.5-14.5 December 19, 2023 09:17 AM [facility] COMPREHENSIVE METABOLIC PANEL+MG Specimen Type: PLASMA No comment entered. Ordering Provider: BRINA BIRMINGHAM Report Released Date/Time: December 18, 2023 02:26 PM Reporting Lab: [facility] [phone] Performing Lab: [facility] [address] CREATININE 0.8 mg/dL 0.7-1.2 UREA NITROGEN 11 [...] 88 >60 December 19, 2023 09:17 AM [facility] IRON GROUP Specimen Type: SERUM No comment entered. Ordering Provider: BRINA BIRMINGHAM Report Released Date/Time: December 19, 2023 12:41 PM Reporting Lab: [facility] [address] Performing Lab: [facility] [address] IRON 34 ug/dL L 65-175 TIBC,CALCULATED 364 [...] 23, 2023 01:00 PM VA-TOBACCO NEVER USED [facility] Tobacco Use History This section includes a history of the smoking, or tobacco-related health factors, that were collected on or before the date of the Encounter. The data comes from the [place] facility where the Encounter took place. Date/Time Smoking Status/Tobacco Use Comment F acility Apr 24, 2022 09:43 AM VA-TOBACCO FORMER USER [facility] Apr 24, 2022 09:43 AM VA-TOBACCO QUIT 15 YRS OR MORE [facility] Feb 23, 2021 11:00 AM VA-TOBACCO FORMER USER [facility] Feb 23, 2021 11:00 AM VA-TOBACCO QUIT 15 YRS OR MORE [facility] Aug 04, 2019 03:40 PM VA-TOBACCO FORMER USER [facility] Aug 04, 2019 03:40 PM VA-TOBACCO QUIT 15 YRS OR MORE [facility] Jul 28, 2018 10:03 AM VA-TOBACCO FORMER USER [facility] Jul 28, 2018 10:03 AM VA-TOBACCO QUIT 15 YRS OR MORE [facility] Sep 12, 2017 09:15 AM FORMER TOBACCO USE >1Y <7Y [facility] November 30, 2016 07:51 AM FORMER TOBACCO USER 7Y OR GREATE R [facility] Sep 19, 2015 11:18 AM FORMER TOBACCO USE >1Y <7Y [facility] December 03, 2014 07:58 AM FORMER TOBACCO USER 7Y OR GREATE R [facility] December 01, 2013 07:39 AM LIFETIME NON-TOBACCO USER [facility] May 07, 2012 07:53 AM FORMER TOBACCO USE >1Y <7Y [facility] Aug 01, 2011 08:59 AM FORMER TOBACCO USE >1Y <7Y [facility] Jul 24, 2010 07:49 AM CURRENT TOBACCO USER [facility] Aug 03, 2009 10:18 AM CURRENT TOBACCO USER [facility] Aug 23, 2008 07:54 AM CURRENT TOBACCO USER [facility] Aug 15, 2007 07:52 AM CURRENT TOBACCO USER [facility] 2006 07:43 AM FORMER TOBACCO USE >1Y <7Y [facility] Advance Directives: All historical and current [...] Mar 20, 2023 ADVANCE DIRECTIVE DISCUSSION BERTRAND,ELY M [facility] Mar 20, 2023 ADVANCE DIRECTIVE ELY BERTRAND [facility] Aug 02, 2003 ADVANCE DIRECTIVE SHANDA CESAR [facility] Encounter Notes: All associated encounter notes This section contains the clinical notes associated to the Encounter. Date/Time Encounter Note(s) Provider Source Dec 30, 2023 11:34 AM REPORT OF CONTACT: LOCAL TITLE: PATIENT CONTACT NOTE STANDARD TITLE: REPORT OF CONTACT DATE OF NOTE: DEC 30, 2023@11:34 ENTRY DATE: DEC 30, 2023@11:34:22 AUTHOR: ERINN FLANNERY COSIGNER: URGENCY: STATUS: COMPLETED Patient contact Name of [place]: SHANTANU COHN Name/Relationship of Contact if other than [place]: Corby Remy fax: [phone] phone: [phone] Date & Time of Contact: Dec@11:34 Type of Contact: Telephone Reason for Contact: Received a call stating they got ferrous gluconate in the mail as well as hydrochlorothiazide and they don't have medication orders to administer these meds. [facility] fax an updated med list [facility]. They are okay with an e signature. /chadwick/ ERINN FLANNERY RN REGISTERED NURSE Signed: 12/30/2023 11:36 ERINN FLANNERY [facility]
--- OUTSIDE RECORDS SUMMARY | 2024-02-17 12:51 | XMS_ITS | Encounter Summary ---
Author Name [facility] [place] [facility] [place] Address [address] [place] [address] Care Team Providers Care Paint Specialist Name Role Phone BRINA BIRMINGHAM Primary Care [...] PLATI LULA BLUE COMP Jul 22, 2016 [id number] [phone] JACK COHN PATIENT ANTHEM [place] PREFERRED PROVIDER ORGANIZAT ION (PPO) PLATI NUM BLUE COMP Jul 22, 2016 [id number] [phone] JACK COHN PATIENT ANTHEM [place] PREFERRED PROVIDER ORGANIZAT ION (PPO) PLATI NUM BLUE COMP Jul 22, 2016 [id number] [phone] JACK COHN PATIENT [place] PREFERRED PROVIDER ORGANIZAT ION (PPO) PLATI NUM BLUE COMP Jul 22, 2016 [id number] [phone] JACK COHN [place] [facility] (WNR) MEDICARE ADVANTAGE [facility] (WNR) Jul 22, 2016 [id number] [phone] JACK COHN [place] [facility] ([place]NR) MEDICARE ADVANTAGE [facility] (WNR) Jul 22, 2016 [id number] [phone] JACK COHN MEDICARE (WNR) MEDICARE (M) PART A November 19, 2004 PART A [id number] JACK COHN PATIENT MEDICARE (WNR) MEDICARE (M) PART B November 19, 2004 PART B [id number] JACK COHN PATIENT PRIME THERAPEUTI CS RX PRESCRIPT ION BCBS [facility] Jul 22, 2016 [id number] [phone] JACK COHN PATIENT Selected Encounter This section includes the information on record at [place] for the Encounter. Date/Time Encounter Type Encounter Description Reason Pro vider Source Jan 02, 2024 12:00 PM Outpatient Encounter PRIMARY CARE/MEDICINE IHE Encounter Template Text not used by [place] Plan of Treatment: Future Appointments (+ 6 months) and Future Tests (+/- 45 days) The Plan of Treatment section includes future care activities for the patient from all [place] treatmentfacilities. This section includes future appointments and future orders which are active, pending or scheduled. Future Appointments This section includes appointments that were scheduled to occur 6 months from the date of the Encounter, up to a maximum of 20 appointments. The data comes from all [place] treatment facilities. Appointment Date/Time Appointment Type Appointme nt Facility Name Jan 06, 2024 09:30 AM AMBULATORY - NONE [place] [facility] Jan 07, 2024 09:00 AM AMBULATORY - MEDICINE [facility] Jan 30, 2024 07:45 AM AMBUL[place]ORY - [place]GERY [place] [facility] Jan 30, 2024 10:30 AM AMBULATORY - NONE [place] [facility] Feb 27, 2024 05:10 PM AMBULATORY - NONE [place] [facility] Lab Results: +/- 30 days of the encounter This section includes the Chemistry and Hematology Lab Results on record with [place] for the patient. Radiology Reports and Pathology Reports are provided separately, in subsequent sections. Lab Results This section contains the Chemistry/Hematology Results that were resulted 30 days before or 30 daysafter the date of the Encounter. Date/Time Source Result Type Result - Unit Interpretation Reference Range Comment Jan 06, 2024 09:29 AM [facility] BASIC METABOLIC PANEL+MG Specimen Type: PLASMA No comment entered. Ordering Provider: BRINA BIRMINGHAM Report Released Date/Time: December 19, 2023 12:41 PM Reporting Lab: [facility] [id number] Performing Lab: [facility] [id number] CREATININE 0.8 mg/dL 0.7-1.2 UREA NITROGEN 13 mg/dL 8-26 GLUCOSE 95 mg/dL 70-100 SODIUM 141 mmol/L 136-145 POTASSIUM 3.8 mmol/L 3.5-5.1 CHLORIDE 107 mmol/L 98-107 CO2 26 mmol/L 22-29 CALCIUM 9.5 mg/dL 8.4-10.2 MAGNESIUM 2.0 mg/dL 1.6-2.6 ANION GAP 8 mmol/L 5-15 .CREAT EGFR(CKD-EPI) 88 >60 December 19, 2023 09:17 AM [facility] B 12 Specimen Type: SERUM No comment entered. Ordering Provider: BRINA BIRMINGHAM Report Released Date/Time: December 18, 2023 02:26 PM Reporting Lab: [facility] [id number] Performing Lab: [facility] [id number] B 12 304 pg/mL 213-816 December 19, 2023 09:17 AM [facility] FOLATE Specimen Type: SERUM No comment entered. Ordering Provider: BRINA BIRMINGHAM Report Released Date/Time: December 18, 2023 02:26 PM Reporting Lab: [facility] [phone] Performing Lab: [facility] [phone] FOLATE 8.3 ng/mL >7.0 December 19, 2023 09:17 AM [facility] LIPID PANEL,NON-FASTING Specimen Type: PLASMA No comment entered. Ordering Provider: BRINA BIRMINGHAM Report Released Date/Time: December 18, 2023 02:26 PM Reporting Lab: [facility] [phone] Performing Lab: [facility] [phone] CHOLESTEROL 109 mg/dL <199 .HDL 43 mg/dL >40 LDL CALCULATION 45 mg/dL <99 VLDL CALCULATION 21 mg/dL <29 NON HDL CHOLESTEROL 66 mg/dL <129 TRIG(NON FASTING) 107 mg/dL <149 December 19, 2023 09:17 AM [facility] CBC Specimen Type: BLOOD No comment entered. Ordering Provider: BRINA BIRMINGHAM Report Released Date/Time: December 18, 2023 02:26 PM Reporting Lab: [facility] [id number] Performing Lab: [facility] [phone] WBC 6.74 10*3/uL 4.0-11.0 RBC 4.45 10*6/uL L 4.6-6.2 HGB 11.6 g/dL L 13.5-17.9 HCT 36.7 L 41-54 MCV 82.5 fL 80-100 MCH 26.1 pg L 27-33 MCHC 31.6 g/dL L 32.0-37.5 PLT 188 10*3/uL 150-400 MPV 11.1 fL H 7.4-10.4 RDW 13.4 11.5-14.5 December 19, 2023 09:17 AM [facility] COMPREHENSIVE METABOLIC PANEL+MG Specimen Type: PLASMA No comment entered. Ordering Provider: BRINA BIRMINGHAM Report Released Date/Time: December 18, 2023 02:26 PM Reporting Lab: [facility] [phone] Performing Lab: [facility] [id number] CREATININE 0.8 mg/dL 0.7-1.2 UREA NITROGEN 11 [...] 88 >60 December 19, 2023 09:17 AM [facility] IRON GROUP Specimen Type: SERUM No comment entered. Ordering Provider: BRINA BIRMINGHAM Report Released Date/Time: December 19, 2023 12:41 PM Reporting Lab: [facility] [phone] Performing Lab: [facility] [phone] IRON 34 ug/dL L 65-175 TIBC,CALCULATED 364 ug/dL 250-425 FERRITIN 11.9 ng/mL L 21.8-274.7 IRON SATURATION 9 L 20-50 TRANSFERRIN 291 mg/dL 163-382 Social History: Smoking Status (Most current) and Tobacco Use (All prior to encounter date) This section includes the most current, and the historical, smoking and tobacco- related health factors from the [place] facility where the Encounter took place. Current Smoking Status This section includes the most current smoking, or tobacco-related health factor, from the [place] facility where the Encounter took place. Date/Time Current Smoking Status Comment Leonard cárdenas Apr 23, 2023 01:00 PM VA-TOBACCO NEVER USED [facility] Tobacco Use History This section includes a history of the smoking, or tobacco-related health factors, that were collected on or before the date of the Encounter. The data comes from the [place] facility where the Encounter took place. Date/Time Smoking Status/Tobacco Use Comment F acility Apr 24, 2022 09:43 AM VA-TOBACCO FORMER USER [facility] Apr 24, 2022 09:43 AM VA-TOBACCO QUIT 15 YRS OR MORE [facility] Feb 23, 2021 11:00 AM VA-TOBACCO FORMER USER [facility] Feb 23, 2021 11:00 AM VA-TOBACCO QUIT 15 YRS OR MORE [facility] Aug 04, 2019 03:40 PM VA-TOBACCO FORMER USER [facility] Aug 04, 2019 03:40 PM VA-TOBACCO QUIT 15 YRS OR MORE [facility] Jul 28, 2018 10:03 AM VA-TOBACCO FORMER USER [facility] Jul 28, 2018 10:03 AM VA-TOBACCO QUIT 15 YRS OR MORE [facility] Sep 12, 2017 09:15 AM FORMER TOBACCO USE >1Y <7Y [facility] November 30, 2016 07:51 AM FORMER TOBACCO USER 7Y OR GREATE R [facility] Sep 19, 2015 11:18 AM FORMER TOBACCO USE >1Y <7Y [facility] December 03, 2014 07:58 AM FORMER TOBACCO USER 7Y OR GREATE R [facility] December 01, 2013 07:39 AM LIFETIME NON-TOBACCO USER [facility] May 07, 2012 07:53 AM FORMER TOBACCO USE >1Y <7Y [facility] Aug 01, 2011 08:59 AM FORMER TOBACCO USE >1Y <7Y [facility] Jul 24, 2010 07:49 AM CURRENT TOBACCO USER [facility] Aug 03, 2009 10:18 AM CURRENT TOBACCO USER [facility] Aug 23, 2008 07:54 AM CURRENT TOBACCO USER [facility] Aug 15, 2007 07:52 AM CURRENT TOBACCO USER [facility] 2006 07:43 AM FORMER TOBACCO USE >1Y <7Y [facility] Advance Directives: All historical and current Section Date Range: From patient's date of to the date document was created. This section includes ALL of a patient's completed or amended [place] Advance and Rescinded Directives. The entries below indicate that a directive exists for the patient, but an actual copy is not included with this document. The data comes from all [place] facilities. Date Advance Directives Provider Source Mar 20, 2023 ADVANCE DIRECTIVE DISCUSSION ELY BERTRAND [facility] Mar 20, 2023 ADVANCE DIRECTIVE ELY BERTRAND [facility] Aug 02, 2003 ADVANCE DIRECTIVE SHANDA CESAR [facility] Encounter Notes: All associated encounter notes This section contains the clinical notes associated to the Encounter. Date/Time Encounter Note(s) Provider Source Jan 02, 2024 12:00 PM HOME HEALTH REFERR AL NOTE: LOCAL TITLE: [facility] HOME HEALTH CARE STANDARD TITLE: HOME HEALTH REFERRAL NOTE DATE OF NOTE: JAN 02, 2024@12:00 ENTRY DATE: JAN 02, 2024@12:00:16 AUTHOR: STAN PERALES COSIGNER: URGENCY: STATUS: COMPLETED HOME HEALTH CARE CERTIFICATION AND PLAN OF CARE SIGNED BY: Dr. birmingham...................[id number] Certification period From: 11/30/2023 To: 01/28/2024 /chadwick/ STAN PERALES Advanced MSA Signed: 01/02/2024 12:01 STAN PERALES [facility]
--- OUTSIDE RECORDS SUMMARY | 2024-02-17 12:52 | XMS_ITS | Encounter Summary ---
Author Name [facility] [place] Organization [facility] [place] Address [address] [place] [address] Care Team Providers Care Policy Change Clerk Name Role Phone BRINA BIRMINGHAM Primary [...] PLATI LULA BLUE COMP Jul 22, 2016 [id number] [phone] JACK COHN PATIENT ANTHEM [place] PREFERRED PROVIDER ORGANIZAT ION (PPO) PLATI NUM BLUE COMP Jul 22, 2016 [id number] [phone] JACK COHN PATIENT ANTHEM [place] PREFERRED PROVIDER ORGANIZAT ION (PPO) PLATI NUM BLUE COMP Jul 22, 2016 [id number] [phone] JACK COHN PATIENT [place] PREFERRED PROVIDER ORGANIZAT ION (PPO) PLATI NUM BLUE COMP Jul 22, 2016 [id number] [phone] JACK COHN PATIENT BCBS [place] [facility] (WNR) MEDICARE ADVANTAGE [facility] (WNR) Jul 22, 2016 [id number] [phone] JACK COHN PATIENT BCBS [place] [facility] (WNR) MEDICARE ADVANTAGE [facility] (WNR) Jul 22, 2016 [id number] [phone] JACK COHN MEDICARE (WNR) MEDICARE (M) PART A November 19, 2004 PART A [id number] JACK COHN PATIENT MEDICARE (WNR) MEDICARE (M) PART B November 19, 2004 PART B [id number] JACK COHN PATIENT PRIME THERAPEUTI CS RX PRESCRIPT ION BCBS [facility] Jul 22, 2016 [place] [id number] [phone] JACK COHN PATIENT Selected Encounter This section includes the information on record at [place] for the Encounter. Date/Time Encounter Type Encounter Description Reason Pro vider Source Jan 24, 2024 10:14 AM Outpatient Encounter PRIMARY CARE/MEDICINE BRINA BIRMINGHAM Encounter Template Text not used by [place] [...] Appointment Type Appointme nt Facility Name Jan 30, 2024 07:45 AM AM[facility]ULATORY - [place] [facility] Jan 30, 2024 10:30 AM AMBULATORY - NONE [facility] Feb 27, 2024 05:10 PM AMBULATORY - NONE [facility] Lab Results: +/- 30 days of [...] Range Comment Jan 06, 2024 09:29 AM [facility] BASIC METABOLIC PANEL+MG Specimen Type: PLASMA No comment entered. Ordering Provider: BRINA BIRMINGHAM Report Released Date/Time: December 19, 2023 12:41 PM Reporting Lab: [facility] [phone] Performing Lab: [facility] [id number] CREATININE 0.8 mg/dL 0.7-1.2 UREA NITROGEN 13 mg/dL 8-26 GLUCOSE 95 mg/dL 70-100 SODIUM 141 mmol/L 136-145 POTASSIUM 3.8 mmol/L 3.5-5.1 CHLORIDE 107 mmol/L 98-107 CO2 26 mmol/L 22-29 CALCIUM 9.5 mg/dL 8.4-10.2 MAGNESIUM 2.0 mg/dL 1.6-2.6 ANION GAP 8 mmol/L 5-15 .CREAT EGFR(CKD-EPI ) 88 >60 Social History: Smoking Status (Most current) and [...] 23, 2023 01:00 PM VA-TOBACCO NEVER USED [facility] Tobacco Use History This section includes a history of the smoking, or tobacco-related health factors, that were collected on or before the date of the Encounter. The data comes from the [place] facility where the Encounter took place. Date/Time Smoking Status/Tobacco Use Comment F acility Apr 24, 2022 09:43 AM VA-TOBACCO FORMER USER [facility] Apr 24, 2022 09:43 AM VA-TOBACCO QUIT 15 YRS OR MORE [facility] Feb 23, 2021 11:00 AM VA-TOBACCO FORMER USER [facility] Feb 23, 2021 11:00 AM VA-TOBACCO QUIT 15 YRS OR MORE [facility] Aug 04, 2019 03:40 PM VA-TOBACCO FORMER USER [facility] Aug 04, 2019 03:40 PM VA-TOBACCO QUIT 15 YRS OR MORE [facility] Jul 28, 2018 10:03 AM VA-TOBACCO FORMER USER [facility] Jul 28, 2018 10:03 AM VA-TOBACCO QUIT 15 YRS OR MORE [facility] Sep 12, 2017 09:15 AM FORMER TOBACCO USE >1Y <7Y [facility] November 30, 2016 07:51 AM FORMER TOBACCO USER 7Y OR GREATE R [facility] Sep 19, 2015 11:18 AM FORMER TOBACCO USE >1Y <7Y [facility] December 03, 2014 07:58 AM FORMER TOBACCO USER 7Y OR GREATE R [facility] December 01, 2013 07:39 AM LIFETIME NON-TOBACCO USER [facility] May 07, 2012 07:53 AM FORMER TOBACCO USE >1Y <7Y [facility] Aug 01, 2011 08:59 AM FORMER TOBACCO USE >1Y <7Y [facility] Jul 24, 2010 07:49 AM CURRENT TOBACCO USER [facility] Aug 03, 2009 10:18 AM CURRENT TOBACCO USER [facility] Aug 23, 2008 07:54 AM CURRENT TOBACCO USER [facility] Aug 15, 2007 07:52 AM CURRENT TOBACCO USER [facility] 2006 07:43 AM FORMER TOBACCO USE >1Y <7Y [facility] Advance Directives: All historical and current Section [...] 20, 2023 ADVANCE DIRECTIVE DISCUSSION ELY BERTRAND [facility] Mar 20, 2023 ADVANCE DIRECTIVE ELY BERTRAND [facility] Aug 02, 2003 ADVANCE DIRECTIVE SHANDA CESAR [facility] Encounter Notes: All associated encounter notes This section contains the clinical notes associated to the Encounter. Date/Time Encounter Note(s) Provider Source Feb 07, 2024 12:02 PM PRIMARY CARE SECUR E MESSAGING: LOCAL TITLE: PRIMARY CARE SECURE MESSAGING STANDARD TITLE: PRIMARY CARE SECURE MESSAGING DATE OF NOTE: FEB 07, 2024@12:02 ENTRY DATE: FEB 07, 2024@12:02:13 AUTHOR: VINNIE,BRINA B EXP COSIGNER: URGENCY: STATUS: COMPLETED ------Original Message Sent: 02/03/2024 05:40 PM ET From: SHANTANU COHN To: [facility] Primary Care, Aristides Birmingham (Grisel) Subject: General:consulting [id number] Thank you so much for looking them over. We did not ever follow up with the kidney cysts or lung nodules. I am not sure if it worth following up with those. Would the information be useful? If so then lets follow up with CT and ultrasound. If it is not going to be that useful then I would say we don't need to follow up. Thanks so much. Raine ------Original Message Sent: 02/07/2024 01:02 PM ET From: BRINA BIRMINGHAM To: SHANTANU COHN Subject: General:consulting [id number] Probably a good idea to take a look just to make sure nothing has changed. I've but in a repeat CT chest and an ultrasound of the kidneys. The [place] should call you to set these up, but if they don't, the CT number is [phone] and the ultrasound number is [phone]. Thanks! /chadwick/ BRINA BIRMINGHAM MD PHYSICIAN, [facility] Signed: 02/07/2024 12:02 BRINA BIRMINGHAM [facility]
--- OUTSIDE RECORDS SUMMARY | 2024-02-17 12:52 | XMS_ITS | Encounter Summary ---
Author Name [facility] Organization [facility] Address [address] [place] [address] Care Team Providers Care Supervisor [place] Name Role Phone BRINA BIRMINGHAM Primary Care [...] PLATI LULA BLUE COMP Jul 22, 2016 [id number] [phone] JACK COHN PATIENT ANTHEM [place] PREFERRED PROVIDER ORGANIZAT ION (PPO) PLATI NUM BLUE COMP Jul 22, [id number] [phone] JACK COHN PATIENT ANTHEM [place] PREFERRED PROVIDER ORGANIZAT ION (PPO) PLATI NUM BLUE COMP Jul 22, 2016 [id number] [phone] JACK COHN PATIENT [place] PREFERRED PROVIDER ORGANIZAT ION (PPO) PLATI NUM BLUE COMP Jul 22, 2016 [id number] [phone] JACK COHN [place] [facility] (WNR) MEDICARE ADVANTAGE [facility] (WNR) Jul 22, 2016 [id number] [phone] JACK COHN [place]IENT [place] [facility] (WNR) MEDICARE ADVANTAGE [facility] (WNR) Jul 22, 2016 [id number] [phone] JACK COHN MEDICARE (WNR) MEDICARE (M) PART A November 19, 2004 PART A [id number] JACK COHN PATIENT MEDICARE (WNR) MEDICARE (M) PART B November 19, 2004 PART B [id number] JACK COHN PATIENT PRIME THERAPEUTI CS RX PRESCRIPT ION BCBS [facility] Jul 22, 2016 [id number] [phone] JACK COHN PATIENT Selected Encounter This section includes the information on record at ID for the Encounter. Date/Time Encounter Type Encounter Description Reason Pro vider Source Jan 28, 2024 09:02 AM Outpatient Encounter COMMUNITY CARE CONSULT IHE Encounter Template Text not used by ID Plan of Treatment: Future Appointments (+ 6 months) and Future Tests (+/- 45 days) The Plan of Treatment section includes future care activities for the patient from all ID treatmentfacilities. This section includes future appointments and future orders which are active, pending or scheduled. Future Appointments This section includes appointments that were scheduled to occur 6 months from the date of the Encounter, up to a maximum of 20 appointments. The data comes from all ID treatment facilities. Appointment Date/Time Appointment Type Appointme nt Facility Name Jan 30, 2024 07:45 AM AMBULATORY - SURGERY [facility] Jan 30, 2024 10:30 AM AMBULATORY - NONE [facility] Feb 27, 2024 05:10 PM AMBULATORY - NONE [facility] Lab Results: +/- 30 days of the encounter This section includes the Chemistry and Hematology Lab Results on record with ID for the patient. Radiology Reports and Pathology Reports are provided separately, in subsequent sections. Lab Results This section contains the Chemistry/Hematology Results that were resulted 30 days before or 30 daysafter the date of the Encounter. Date/Time Source Result Type Result - Unit Interpretation Reference Range Comment Jan 06, 2024 09:29 AM [facility] BASIC METABOLIC PANEL+MG Specimen Type: PLASMA No comment entered. Ordering Provider: BRINA BIRMINGHAM Report Released Date/Time: December 19, 2023 12:41 PM Reporting Lab: [facility] [id number] Performing Lab: [facility] [id number] CREATININE 0.8 mg/dL 0.7-1.2 UREA NITROGEN 13 [...] and tobacco- related health factors from the ID facility where the Encounter took place. Current Smoking Status This section includes the most current smoking, or tobacco-related health factor, from the ID facility where the Encounter took place. Date/Time Current Smoking Status Comment Leonard cárdenas Apr 23, 2023 01:00 PM VA-TOBACCO NEVER USED [facility] Tobacco Use History This section includes a history of the smoking, or tobacco-related health factors, that were collected on or before the date of the Encounter. The data comes from the ID facility where the Encounter took place. Date/Time Smoking Status/Tobacco Use Comment F acility Apr 24, 2022 09:43 AM VA-TOBACCO FORMER USER [facility] Apr 24, 2022 09:43 AM VA-TOBACCO QUIT 15 YRS OR MORE [facility] Feb 23, 2021 11:00 AM VA-TOBACCO FORMER USER [facility] Feb 23, 2021 11:00 AM VA-TOBACCO QUIT 15 YRS OR MORE [facility] Aug 04, 2019 03:40 PM VA-TOBACCO FORMER USER [facility] Aug 04, 2019 03:40 PM VA-TOBACCO QUIT 15 YRS OR MORE [facility] Jul 28, 2018 10:03 AM VA-TOBACCO FORMER USER [facility] Jul 28, 2018 10:03 AM VA-TOBACCO QUIT 15 YRS OR MORE [facility] Sep 12, 2017 09:15 AM FORMER TOBACCO USE >1Y <7Y [facility] November 30, 2016 07:51 AM FORMER TOBACCO USER 7Y OR GREATE R [facility] Sep 19, 2015 11:18 AM FORMER TOBACCO USE >1Y <7Y [facility] December 03, 2014 07:58 AM FORMER TOBACCO USER 7Y OR GREATE R [facility] December 01, 2013 07:39 AM LIFETIME NON-TOBACCO USER [facility] May 07, 2012 07:53 AM FORMER TOBACCO USE >1Y <7Y [facility] Aug 01, 2011 08:59 AM FORMER TOBACCO USE >1Y <7Y [facility] Jul 24, 2010 07:49 AM CURRENT TOBACCO USER [facility] Aug 03, 2009 10:18 AM CURRENT TOBACCO USER [facility] Aug 23, 2008 07:54 AM CURRENT TOBACCO USER [facility] Aug 15, 2007 07:52 AM CURRENT TOBACCO USER [facility] 2006 07:43 AM FORMER TOBACCO USE >1Y <7Y [facility] Advance Directives: All historical and current Section Date Range: From patient's date of to the date document was created. This section includes ALL of a patient's completed or amended ID Advance and Rescinded Directives. The entries below indicate that a directive exists for the patient, but an actual copy is not included with this document. The data comes from all ID facilities. Date Advance Directives Provider Source Mar 20, 2023 ADVANCE DIRECTIVE DISCUSSION ELY BERTRAND [facility] Mar 20, 2023 ADVANCE DIRECTIVE ELY BERTRAND [facility] Aug 02, 2003 ADVANCE DIRECTIVE SHANDA CESAR [facility] Encounter Notes: All associated encounter notes This section contains the clinical notes associated to the Encounter. Date/Time Encounter Note(s) Provider Source Jan 28, 2024 03:50 PM ADDENDUM: LOCAL TITLE: Addendum STANDARD TITLE: ADDENDUM DATE OF NOTE: JAN 28, 2024@15:50:30 ENTRY DATE: JAN 28, 2024@15:50:31 AUTHOR: FREDY RUBIO EXP COSIGNER: URGENCY: STATUS: COMPLETED After further chart review it looks like is now living in [facility]. Reached out to RN at [facility] and she confirmed [place] receives medication management through the facility. Community care consult will be cancelled. /corry RUBIO Community Care RN Signed: 01/28/2024 15:52 Receipt Acknowledged By: 01/28/2024 15:59 /corry FLANNERY RN REGISTERED NURSE 01/28/2024 16:57 /corry BIRMINGHAM MD PHYSICIAN, [facility] === --- Original Document --- 01/28/24 COMMUNITY CARE-CARE COORDINATION PLAN NOTE: [facility] is closing its doors. They are attempting to coordinate new home care agencies to take over care. Photographic Processor received a call from Gill at [facility]. She was contacted by [facility] and would like to take over this . was already discharged. PACT please enter a skilled community home care consult fitz. Thank you /chadwick/ ORAL VILLALBA RN BSN COMMUNITY CARE SOFTBALL PLAYER Signed: 01/28/2024 09:10 Receipt Acknowledged By: 01/28/2024 10:04 /corry RUBIO Community Care RN 01/28/2024 09:46 /corry FLANNERY RN REGISTERED NURSE 01/28/2024 10:09 /corry BIRMINGH[place] MD PHYSICIAN, [facility] 01/28/2024 ADDENDUM STATUS: COMPLETED Order placed pending provider signature. /corry FLANNERY RN REGISTERED NURSE Signed: 01/28/2024 09:46 FREDY RUBIO [facility] Jan 28, 2024 09:03 AM NONVA NOTE: LOCAL TITLE: COMMUNITY CARE-CARE COORDINATION PLAN NOTE STANDARD TITLE: NONVA NOTE DATE OF NOTE: JAN 28, 2024@09:03 ENTRY DATE: JAN 28, 2024@09:03:34 AUTHOR: ORAL VILLALBA EXP COSIGNER: URGENCY: STATUS: COMPLETED COMMUNITY CARE-CARE COORDINATION PLAN NOTE Has ADDENDA [facility] is closing its doors. They are attempting to coordinate new home care agencies to take over care. Photographic Processor received a call from Gill at [facility]. She was contacted by [facility] and would like to take over this . was already discharged. PACT please enter a skilled community home care consult fitz. Thank you /chadwick/ ORAL VILLALBA RAIL PROJECT ENGINEER COMMUNITY CARE SOFTBALL PLAYER Signed: 01/28/2024 09:10 Receipt Acknowledged By: 01/28/2024 10:04 /chadwick/ FREDY RUBIO Community Care RN 01/28/2024 09:46 /chadwick/ ERINN FLANNERY RN REGISTERED NURSE 01/28/2024 10:09 /chadwick/ BRINA BIRMINGHAM MD PHYSICIAN, [facility] 01/28/2024 ADDENDUM STATUS: COMPLETED Order placed pending provider signature. /chadwick/ ERINN FLANNERY RN REGISTERED NURSE Signed: 01/28/2024 09:46 01/28/2024 ADDENDUM STATUS: COMPLETED After further chart review it looks like is now living in [facility]. Reached out to RN at [facility] and she confirmed [place] receives medication management through the facility. Community care consult will be cancelled. /chadwick/ FREDY RUBIO Community Care RN Signed: 01/28/2024 15:52 Receipt Acknowledged By: * AWAITING SIGNATURE * ERINN FLANNERY * AWAITING SIGNATURE * BRINA BIRMINGHAM WENDY L [facility]
--- OUTSIDE RECORDS SUMMARY | 2024-02-17 12:52 | XMS_ITS | Encounter Summary ---
Author Name [facility] [place] [facility] [place] [facility] [place] Address [address] [place] [address] Care Team Providers Care Tumbler Operator Name Role Phone BRINA BIRMINGHAM Primary Care [...] PLATI LULA BLUE COMP Jul 22, 2016 [id number] [phone] JACK COHN PATIENT ANTHEM [place] PREFERRED PROVIDER ORGANIZAT ION (PPO) PLATI NUM BLUE COMP Jul 22, 2016 [id number] [phone] JACK COHN PATIENT ANTHEM [place] PREFERRED PROVIDER ORGANIZAT ION (PPO) PLATI NUM BLUE COMP Jul 22, [id number] [phone] JACK COHN PATIENT [place] PREFERRED PROVIDER ORGANIZAT ION (PPO) PLATI NUM BLUE COMP Jul 22, 2016 [id number] [phone] JACK COHN PATIENT [place] [facility] (WNR) MEDICARE ADVANTAGE [facility] (WNR) Jul 22, 2016 [id number] [phone] JACK COHN [place]IENT [place] [facility] (WNR) MEDICARE ADVANTAGE [facility] (WNR) Jul 22, 2016 [id number] [phone] JACK COHN MEDICARE (WNR) MEDICARE (M) PART A November 19, 2004 PART A [id number] JACK COHN MEDICARE (WNR) MEDICARE (M) PART B November 19, 2004 PART B [id number] JACK COHN PATIENT PRIME THERAPEUTI CS RX PRESCRIPT ION BCBS [facility] Jul 22, 2016 [id number] [phone] JACK COHN PATIENT Selected Encounter This section includes the information on record at [place] for the Encounter. Date/Time Encounter Type Encounter Description Reason Provider Source Jan 07, 2024 09:00 AM HC PRO PHONE CALL 11-20 MIN TELEPHONE PRIMARY CARE ICD-10-CM I10 Essential (primary) hypertension BRINA BIRMINGHAM IH[facility]itra Encounter Template Text not used by [place] Assessments - Encounter Diagnoses This section includes the primary and secondary diagnoses documented for the Encounter. Date/Time Primary/Secondary Diagnosis Diagnosis Name Provider Source Jan 07, 2024 09:00 AM PRIMARY Essential (primary) hypertension CORRIE FLANNERY [facility] Plan of Treatment: Future Appointments (+ 6 months) and Future Tests (+/- 45 days) The Plan of Treatment section includes future care activities for the patient from all [place] treatmentfacilities. This section includes future appointments and future orders which are active, pending or scheduled. Future Appointments This section includes appointments that were scheduled to occur 6 months from the date of the Encounter, up to a maximum of 20 appointments. The data comes from all [place] treatment facilities. Appointment Date/Time Appointment Type Appointme nt Facility Name Jan 30, 2024 07:45 AM AMBULATORY - SURGERY [facility] Jan 30, 2024 10:30 [facility] Feb 27, 2024 05:10 PM AMBULATORY - NONE [facility] Lab Results: +/- 30 days of [...] Range Comment Jan 06, 2024 09:29 AM [facility] BASIC METABOLIC PANEL+MG Specimen Type: PLASMA No comment entered. Ordering Provider: BRINA BIRMINGHAM Report Released Date/Time: December 19, 2023 12:41 PM Reporting Lab: [facility] [id number] Performing Lab: [facility] [id number] CREATININE 0.8 mg/dL 0.7-1.2 UREA NITROGEN 13 mg/dL 8-26 GLUCOSE 95 mg/dL 70-100 SODIUM 141 mmol/L 136-145 POTASSIUM 3.8 mmol/L 3.5-5.1 CHLORIDE 107 mmol/L 98-107 CO2 26 mmol/L 22-29 CALCIUM 9.5 mg/dL 8.4-10.2 MAGNESIUM 2.0 mg/dL 1.6-2.6 ANION GAP 8 mmol/L 5-15 .CREAT EGFR(CKD-EPI) 88 >60 December 19, 2023 09:17 AM [facility] FOLATE Specimen Type: SERUM No comment entered. Ordering Provider: BRINA BIRMINGHAM Report Released Date/Time: December 18, 2023 02:26 PM Reporting Lab: [facility] [id number] Performing Lab: [facility] [id number] FOLATE 8.3 ng/mL >7.0 December 19, 2023 09:17 AM [facility] B 12 Specimen Type: SERUM No comment entered. Ordering Provider: BRINA BIRMINGHAM Report Released Date/Time: December 18, 2023 02:26 PM Reporting Lab: [facility] [id number] Performing Lab: [facility] [id number] B 12 304 pg/mL 213-816 December 19, 2023 09:17 AM [facility] LIPID PANEL,NON-FASTING Specimen Type: PLASMA No comment entered. Ordering Provider: BRINA BIRMINGHAM Report Released Date/Time: December 18, 2023 02:26 PM Reporting Lab: [facility] [phone] Performing Lab: [facility] [id number] CHOLESTEROL 109 mg/dL <199 .HDL 43 mg/dL >40 LDL CALCULATION 45 mg/dL <99 VLDL CALCULATION 21 mg/dL <29 NON HDL CHOLESTEROL 66 mg/dL <129 TRIG(NON FASTING) 107 mg/dL <149 December 19, 2023 09:17 AM [facility] CBC Specimen Type: BLOOD No comment entered. Ordering Provider: BRINA BIRMINGHAM Report Released Date/Time: December 18, 2023 02:26 PM Reporting Lab: [facility] [phone] Performing Lab: [facility] [phone] WBC 6.74 10*3/uL 4.0-11.0 RBC 4.45 10*6/uL L 4.6-6.2 HGB 11.6 g/dL L 13.5-17.9 HCT 36.7 L 41-54 MCV 82.5 fL 80-100 MCH 26.1 pg L 27-33 MCHC 31.6 g/dL L 32.0-37.5 PLT 188 10*3/uL 150-400 MPV 11.1 fL H 7.4-10.4 RDW 13.4 11.5-14.5 December 19, 2023 09:17 AM [facility] COMPREHENSIVE METABOLIC PANEL+MG Specimen Type: PLASMA No comment entered. Ordering Provider: BRINA BIRMINGHAM Report Released Date/Time: December 18, 2023 02:26 PM Reporting Lab: [facility] [phone] Performing Lab: [facility] [phone] CREATININE 0.8 mg/dL 0.7-1.2 UREA NITROGEN 11 [...] 88 >60 December 19, 2023 09:17 AM [facility] IRON GROUP Specimen Type: SERUM No comment entered. Ordering Provider: BRINA BIRMINGHAM Report Released Date/Time: December 19, 2023 12:41 PM Reporting Lab: [facility] [phone] Performing Lab: [facility] [phone] IRON 34 ug/dL L 65-175 TIBC,CALCULATED 364 ug/dL 250-425 FERRITIN 11.9 ng/mL L 21.8-274.7 IRON SATURATION 9 L 20-50 TRANSFERRIN 291 mg/dL 163-382 Social History: Smoking Status (Most current) and Tobacco Use (All prior to encounter date) This section includes the most current, and the historical, smoking and tobacco- related health factors from the [place] facility where the Encounter took place. Current Smoking Status This section includes the most current smoking, or tobacco-related health factor, from the [place] facility where the Encounter took place. Date/Time Current Smoking Status Comment Leonard cárdenas Apr 23, 2023 01:00 PM VA-TOBACCO NEVER USED [facility] Tobacco Use History This section includes a history of the smoking, or tobacco-related health factors, that were collected on or before the date of the Encounter. The data comes from the [place] facility where the Encounter took place. Date/Time Smoking Status/Tobacco Use Comment F acility Apr 24, 2022 09:43 AM VA-TOBACCO FORMER USER [facility] Apr 24, 2022 09:43 AM VA-TOBACCO QUIT 15 YRS OR MORE [facility] Feb 23, 2021 11:00 AM VA-TOBACCO FORMER USER [facility] Feb 23, 2021 11:00 AM VA-TOBACCO QUIT 15 YRS OR MORE [facility] Aug 04, 2019 03:40 PM VA-TOBACCO FORMER USER [facility] Aug 04, 2019 03:40 PM VA-TOBACCO QUIT 15 YRS OR MORE [facility] Jul 28, 2018 10:03 AM VA-TOBACCO FORMER USER [facility] Jul 28, 2018 10:03 AM VA-TOBACCO QUIT 15 YRS OR MORE [facility] Sep 12, 2017 09:15 AM FORMER TOBACCO USE >1Y <7Y [facility] November 30, 2016 07:51 AM FORMER TOBACCO USER 7Y OR GREATE R [facility] Sep 19, 2015 11:18 AM FORMER TOBACCO USE >1Y <7Y [facility] December 03, 2014 07:58 AM FORMER TOBACCO USER 7Y OR GREATE R [facility] December 01, 2013 07:39 AM LIFETIME NON-TOBACCO USER [facility] May 07, 2012 07:53 AM FORMER TOBACCO USE >1Y <7Y [facility] Aug 01, 2011 08:59 AM FORMER TOBACCO USE >1Y <7Y [facility] Jul 24, 2010 07:49 AM CURRENT TOBACCO USER [facility] Aug 03, 2009 10:18 AM CURRENT TOBACCO USER [facility] Aug 23, 2008 07:54 AM CURRENT TOBACCO USER [facility] Aug 15, 2007 07:52 AM CURRENT TOBACCO USER [facility] 2006 07:43 AM FORMER TOBACCO USE >1Y <7Y [facility] Advance Directives: All historical and current Section Date Range: From patient's date of to the date document was created. This section includes ALL of a patient's completed or amended [place] Advance and Rescinded Directives. The entries below indicate that a directive exists for the patient, but an actual copy is not included with this document. The data comes from all [place] facilities. Date Advance Directives Provider Source Mar 20, 2023 ADVANCE DIRECTIVE DISCUSSION ELY BERTRAND [facility] Mar 20, 2023 ADVANCE DIRECTIVE ELY BERTRAND [facility] Aug 02, 2003 ADVANCE DIRECTIVE SHANDA CESAR [facility] Encounter Notes: All associated encounter notes This section contains the clinical notes associated to the Encounter. Date/Time Encounter Note(s) Provider Source Jan 21, 2024 02:19 PM ADDENDUM: LOCAL TITLE: Addendum STANDARD TITLE: ADDENDUM DATE OF NOTE: JAN 21, 2024@14:19:41 ENTRY DATE: JAN 21, 2024@14:19:42 AUTHOR: ALMA DELIA,ERINN E EXP COSIGNER: URGENCY: STATUS: COMPLETED Raine Vet's daughter called race and sports book writer and shared some concerns. She continues to have reservations about Jennyfer doing a colonoscopy stating she would be doing the prep with patient and bringing him to the appt. She is worried about him tolerating this. She mentions that back in 2020 Jennyfer was seen at [facility] for rib pain and vomitting. He had imaging done and it was found that patient had lesions on his kidney's. Jennyfer was supposed to f/u with Nephrology but he never did. Raine states that Jennyfer also had hematuria around that time before. She mentions a family history, including herself of bladder cancer. She wonders if this is why Jennyfer has anemia. She is wondering if this could be looked into first before doing the colonoscopy. She states that if Jennyfer has something going on with his kidneys, they may not want to pursue anything anyway citing Jennyfer's age. She has outside records and will be sending them via [facility] for review. [employer] did reinforce Dr. Birmingham's concerns with Jennyfer having a slow bleed somewhere and his recommendation to complete the colonoscopy. Raine remains very uneasy about this. She also mentions that Jennyfer is now having urinary incontinence during the day which before, she states he had this just at night. /es/ ERINN FLANNERY RN REGISTERED NURSE Signed: 01/21/2024 14:25 Receipt Acknowledged By: 01/21/2024 15:18 /es/ BRINA BIRMINGHAM MD PHYSICIAN, [facility] --- Original Document --- 01/07/24 MEDICINE CLINIC NURSING RN NOTE: TYPE OF VISIT: Telephone REASON FOR VISIT: f/u blood pressure after amlodipine was stopped and hctz started ALLERGIES: FACILITY ALLERGY/ADR -------- No Remote Allergy/ADR Data available for this patient [facility] MORPHINE VITAL SIGNS: Blood Pressure: 133/75 (12/19/2023 12:35) Pulse: 58 (12/19/2023 10:04) Respiration: 16 (12/19/2023 10:04) Temperature: 97.2 F [36.2 C] (12/19/2023 10:04) Weight: 290.5 lb [131.77 kg] (12/19/2023 10:04) Height: 71.5 in [181.6 cm] (04/23/2023 13:11) BMI: 40.0 O2 Sat: 92% (12/19/2023 10:04) Pain: 0 (12/19/2023 10:04) MEDICATION Active Outpatient Medications (including Supplies): ACETAMINOPHEN 500MG TAB TAKE TWO TABLETS BY MOUTH TWICE A ACTIVE DAY AND TAKE TWO TABLETS EVERY DAY NEEDED FOR PAIN APIXABAN 5MG TAB TAKE ONE TABLET BY MOUTH EVERY 12 HOURS ACTIVE TO PREVENT STROKES BISACODYL 5MG EC TAB TAKE TWO TABLETS BY MOUTH ONCE FOR ACTIVE COLON PREP CARBOXYMETHYLCELLULOSE NA 0.5% OPH SOLN INSTILL 1 DROP IN ACTIVE BOTH EYES FOUR TIMES A DAY NEEDED FOR DRY EYES COLON ELECTROLYTE LAVAGE PWD FOR SOLN TAKE ONE CONTAINER ACTIVE BY MOUTH DIRECTED FOR COLON PREP DRESS,MEPILEX BORDER FLEX 4X4IN #[id number] APPLY 1 DRESSING ACTIVE TOPICALLY EVERY DAY FOR SKIN TEAR DULOXETINE HCL 60MG EC CAP TAKE ONE CAPSULE BY MOUTH EVERY ACTIVE DAY REPLACES CITALOPRAM PRESCRIPTION FERROUS GLUCONATE 324MG TAB TAKE ONE TABLET BY MOUTH EVERY ACTIVE OTHER DAY FOR ANEMIA FINASTERIDE 5MG TAB TAKE ONE TABLET BY MOUTH EVERY DAY FOR ACTIVE PROSTATE GAUZE PAD 4IN X 4IN 8-PLY NONSTERILE USE GAUZE SPONGE/PAD ACTIVE GAUZE PAD 4IN X 4IN 8-PLY NONSTERILE TOPICALLY DIRECTED FOR WOUND CARE HYDROCHLOROTHIAZIDE 12.5MG TAB TAKE ONE TABLET BY MOUTH ACTIVE EVERY DAY FOR BLOOD PRESSURE LIDOCAINE 5% PATCH APPLY 1 PATCH TOPICALLY EVERY DAY FOR ACTIVE UP TO 12 HOURS FOR PAIN LISINOPRIL 10MG TAB TAKE ONE TABLET BY MOUTH EVERY DAY FOR ACTIVE BLOOD PRESSURE METOPROLOL TARTRATE 25MG TAB TAKE ONE TABLET BY MOUTH ACTIVE (S) TWICE A DAY FOR BLOOD PRESSURE MULTIVIT/OPHTH AREDS2/LUTE/ZEAX CAP/TAB TAKE 1 CAP/TAB BY ACTIVE MOUTH TWICE A DAY FOR EYE HEALTH PANTOPRAZOLE NA 40MG EC TAB TAKE ONE TABLET BY MOUTH EVERY ACTIVE EVENING TO DECREASE STOMACH ACID -TAKE ON AN EMPTY STOMACH, AT LEAST ONE-HALF HOUR BEFORE EATING ROSUVASTATIN CA 20MG TAB TAKE ONE TABLET BY MOUTH EVERY ACTIVE (S) DAY FOR CHOLESTEROL SENNOSIDES 8.6MG TAB TAKE ONE TABLET BY MOUTH EVERY DAY ACTIVE AND TAKE ONE TABLET EVERY DAY NEEDED FOR CONSTIPATION TAMSULOSIN HCL 0.4MG CAP TAKE TWO CAPSULES BY MOUTH AT ACTIVE BEDTIME LABS SMA-7: SODIUM 141 (01/06/24) POTASSIUM 3.8 (01/06/24) CHLORIDE 107 (01/06/24) CO2 26 (01/06/24) UREA NITROGEN 13 (01/06/24) CREATININE 0.8 (01/06/24) GLUCOSE 95 (01/06/24) CREATININE 0.8 (01/06/24) Patient was informed of available lab results associated with today's visit. Assessment: Called and spoke with Jennyfer's daughter Raine and Jennyfer was in the background. Raine was involved in primary care visit last November and aware of med changes. In speaking with her, she as well as the patient believe the LE edema has improved. Raine didn't have BP readings but states that N is visiting weekly obtaining patient's BP and weights. Raine asked if Beckat should really proceed and have the colonoscopy asking if it would change the course of care for . She has concerns about putting Beckat through the difficulities of this procedure and the prep involved. Will co sign Dr. Birmingham. [facility] Care Abel ALMANZA [phone] Spoke with RN who confirms she is seeing patient weekly for BP management, med set up and weights. 12/19 126/60 12/25 130/80 weight 291 01/01 140/70 weight 288 Patient does wear knee high compression. Abel obtained race and sports book writer's direct phone number and clinic fax number. She will continue to monitor BP and weights and will fax monthly updates to clinic. PLAN: Will update Dr. Birmingham to the above. See Jennyfer's daughter's concerns regarding GI work up. /chadwick/ ERINN FLANNERY RN REGISTERED NURSE Signed: 01/07/2024 09:22 Receipt Acknowledged By: 01/07/2024 14:22 /chadwick/ BRINA BIRMINGHAM MD PHYSICIAN, [facility] 01/07/2024 ADDENDUM STATUS: COMPLETED Normally if this was just for screening for colon cancer, I would say he would not a colonoscopy. Need but since his hemoglobin levels are low, as are his iron numbers, I suspect he is bleeding somewhere slowly in his GI tract. The colonoscopy will help us, hopefully, find where the bleeding is and stop it before it causes Mr. Cohn any trouble like shortness of breath and fatigue. Blood pressures look good! /corry BIRMINGHAM MD PHYSICIAN, [facility] Signed: 01/07/2024 14:22 Receipt Acknowledged By: 01/07/2024 14:42 /corry FLANNERY RN REGISTERED NURSE 01/07/2024 ADDENDUM STATUS: COMPLETED Spoke with Raine and shared Dr. Birmingham's message about proceeding with the colonoscopy. She reports understanding and is agreeable with completing this test for Vet. Also shared that race and sports book writer was able to connect with home health nurse Abel and that Vet's BP and weights look good. /corry FLANNERY RN REGISTERED NURSE Signed: 01/07/2024 14:44 01/21/2024 ADDENDUM STATUS: COMPLETED Will look out for those records /corry BIRMINGHAM MD PHYSICIAN, [facility] Signed: 01/21/2024 15:18 ERINN FLANNERY [facility] Jan 07, 2024 02:22 PM ADDENDUM: LOCAL TITLE: Addendum STANDARD TITLE: ADDENDUM DATE OF NOTE: JAN 07, 2024@14:22:16 ENTRY DATE: JAN 07, 2024@14:22:18 AUTHOR: BRINA BIRMINGHAM EXP COSIGNER: URGENCY: STATUS: COMPLETED Normally if this was just for screening for colon cancer, I would say he would not a colonoscopy. Need but since his hemoglobin levels are low, as are his iron numbers, I suspect he is bleeding somewhere slowly in his GI tract. The colonoscopy will help us, hopefully, find where the bleeding is and stop it before it causes Mr. Cohn any trouble like shortness of breath and fatigue. Blood pressures look good! /corry BIRMINGHAM MD PHYSICIAN, [facility] Signed: 01/07/2024 14:22 Receipt Acknowledged By: 01/07/2024 14:42 /corry FLANNERY RN REGISTERED NURSE --- Original Document --- 01/07/24 MEDICINE CLINIC NURSING RN NOTE: TYPE OF VISIT: Telephone REASON FOR VISIT: f/u blood pressure after amlodipine was stopped and hctz started ALLERGIES: FACILITY ALLERGY/ADR -------- No Remote Allergy/ADR Data available for this patient [facility] MORPHINE VITAL SIGNS: Blood Pressure: 133/75 (12/19/2023 12:35) Pulse: 58 (12/19/2023 10:04) Respiration: 16 (12/19/2023 10:04) Temperature: 97.2 F [36.2 C] (12/19/2023 10:04) Weight: 290.5 lb [131.77 kg] (12/19/2023 10:04) Height: 71.5 in [181.6 cm] (04/23/2023 13:11) BMI: 40.0 O2 Sat: 92% (12/19/2023 10:04) Pain: 0 (12/19/2023 10:04) MEDICATION Active Outpatient Medications (including Supplies): ACETAMINOPHEN 500MG TAB TAKE TWO TABLETS BY MOUTH TWICE A ACTIVE DAY AND TAKE TWO TABLETS EVERY DAY NEEDED FOR PAIN APIXABAN 5MG TAB TAKE ONE TABLET BY MOUTH EVERY 12 HOURS ACTIVE TO PREVENT STROKES BISACODYL 5MG EC TAB TAKE TWO TABLETS BY MOUTH ONCE FOR ACTIVE COLON PREP CARBOXYMETHYLCELLULOSE NA 0.5% OPH SOLN INSTILL 1 DROP IN ACTIVE BOTH EYES FOUR TIMES A DAY NEEDED FOR DRY EYES COLON ELECTROLYTE LAVAGE PWD FOR SOLN TAKE ONE CONTAINER ACTIVE BY MOUTH DIRECTED FOR COLON PREP DRESS,MEPILEX BORDER FLEX 4X4IN #[id number] APPLY 1 DRESSING ACTIVE TOPICALLY EVERY DAY FOR SKIN TEAR DULOXETINE HCL 60MG EC CAP TAKE ONE CAPSULE BY MOUTH EVERY ACTIVE DAY REPLACES CITALOPRAM PRESCRIPTION FERROUS GLUCONATE 324MG TAB TAKE ONE TABLET BY MOUTH EVERY ACTIVE OTHER DAY FOR ANEMIA FINASTERIDE 5MG TAB TAKE ONE TABLET BY MOUTH EVERY DAY FOR ACTIVE PROSTATE GAUZE PAD 4IN X 4IN 8-PLY NONSTERILE USE GAUZE SPONGE/PAD ACTIVE GAUZE PAD 4IN X 4IN 8-PLY NONSTERILE TOPICALLY DIRECTED FOR WOUND CARE HYDROCHLOROTHIAZIDE 12.5MG TAB TAKE ONE TABLET BY MOUTH ACTIVE EVERY DAY FOR BLOOD PRESSURE LIDOCAINE 5% PATCH APPLY 1 PATCH TOPICALLY EVERY DAY FOR ACTIVE UP TO 12 HOURS FOR PAIN LISINOPRIL 10MG TAB TAKE ONE TABLET BY MOUTH EVERY DAY FOR ACTIVE BLOOD PRESSURE METOPROLOL TARTRATE 25MG TAB TAKE ONE TABLET BY MOUTH ACTIVE (S) TWICE A DAY FOR BLOOD PRESSURE MULTIVIT/OPHTH AREDS2/LUTE/ZEAX CAP/TAB TAKE 1 CAP/TAB BY ACTIVE MOUTH TWICE A DAY FOR EYE HEALTH PANTOPRAZOLE NA 40MG EC TAB TAKE ONE TABLET BY MOUTH EVERY ACTIVE EVENING TO DECREASE STOMACH ACID -TAKE ON AN EMPTY STOMACH, AT LEAST ONE-HALF HOUR BEFORE EATING ROSUVASTATIN CA 20MG TAB TAKE ONE TABLET BY MOUTH EVERY ACTIVE (S) DAY FOR CHOLESTEROL SENNOSIDES 8.6MG TAB TAKE ONE TABLET BY MOUTH EVERY DAY ACTIVE AND TAKE ONE TABLET EVERY DAY NEEDED FOR CONSTIPATION TAMSULOSIN HCL 0.4MG CAP TAKE TWO CAPSULES BY MOUTH AT ACTIVE BEDTIME LABS SMA-7: SODIUM 141 (01/06/24) POTASSIUM 3.8 (01/06/24) CHLORIDE 107 (01/06/24) CO2 26 (01/06/24) UREA NITROGEN 13 (01/06/24) CREATININE 0.8 (01/06/24) GLUCOSE 95 (01/06/24) CREATININE 0.8 (01/06/24) Patient was informed of available lab results associated with today's visit. Assessment: Called and spoke with Jennyfer's daughter Raine and Jennyfer was in the background. Raine was involved in primary care visit last November and aware of med changes. In speaking with her, she as well as the patient believe the LE edema has improved. Raine didn't have BP readings but states that [facility] is visiting weekly obtaining patient's BP and weights. Raine asked if Vet should really proceed and have the colonoscopy asking if it would change the course of care for [place]. She has concerns about putting Vet through the difficulities of this procedure and the prep involved. Will co sign Dr. Birmingham. [facility] Abel ALMANZA [phone] Spoke with RN who confirms she is seeing patient weekly for BP management, med set up and weights. 12/19 126/60 12/25 130/80 weight 291 01/01 140/70 weight 288 Patient does wear knee high compression. Abel obtained race and sports book writer's direct phone number and clinic fax number. She will continue to monitor BP and weights and will fax monthly updates to clinic. PLAN: Will update Dr. Birmingham to the above. See Vet's daughter's concerns regarding GI work up. /chadwick/ ERINN FLANNERY RN REGISTERED NURSE Signed: 01/07/2024 09:22 Receipt Acknowledged By: 01/07/2024 14:22 /chadwick/ BRINA BIRMINGHAM MD PHYSICIAN, [facility] 01/07/2024 ADDENDUM STATUS: UNSIGNED You may not VIEW this UNSIGNED Addendum. BRINA BIRMINGHAM [facility] Jan 07, 2024 09:15 AM NURSING OUTPATIENT NOTE: LOCAL TITLE: MEDICINE CLINIC NURSING RN NOTE STANDARD TITLE: NURSING OUTPATIENT NOTE DATE OF NOTE: JAN 07, 2024@09:15 ENTRY DATE: JAN 07, 2024@09:15:25 AUTHOR: ERINN FLANNERY EXP COSIGNER: URGENCY: STATUS: COMPLETED MEDICINE CLINIC NURSING RN NOTE Has ADDENDA TYPE OF VISIT: Telephone REASON FOR VISIT: f/u blood pressure after amlodipine was stopped and hctz started ALLERGIES: FACILITY ALLERGY/ADR -------- No Remote Allergy/ADR Data available for this patient [facility] MORPHINE VITAL SIGNS: Blood Pressure: 133/75 (12/19/2023 12:35) Pulse: 58 (12/19/2023 10:04) Respiration: 16 (12/19/2023 10:04) Temperature: 97.2 F [36.2 C] (12/19/2023 10:04) Weight: 290.5 lb [131.77 kg] (12/19/2023 10:04) Height: 71.5 in [181.6 cm] (04/23/2023 13:11) BMI: 40.0 O2 Sat: 92% (12/19/2023 10:04) Pain: 0 (12/19/2023 10:04) MEDICATION Active Outpatient Medications (including Supplies): ACETAMINOPHEN 500MG TAB TAKE TWO TABLETS BY MOUTH TWICE A ACTIVE DAY AND TAKE TWO TABLETS EVERY DAY NEEDED FOR PAIN APIXABAN 5MG TAB TAKE ONE TABLET BY MOUTH EVERY 12 HOURS ACTIVE TO PREVENT STROKES BISACODYL 5MG EC TAB TAKE TWO TABLETS BY MOUTH ONCE FOR ACTIVE COLON PREP CARBOXYMETHYLCELLULOSE NA 0.5% OPH SOLN INSTILL 1 DROP IN ACTIVE BOTH EYES FOUR TIMES A DAY NEEDED FOR DRY EYES COLON ELECTROLYTE LAVAGE PWD FOR SOLN TAKE ONE CONTAINER ACTIVE BY MOUTH DIRECTED FOR COLON PREP DRESS,MEPILEX BORDER FLEX 4X4IN #[id number] APPLY 1 DRESSING ACTIVE TOPICALLY EVERY DAY FOR SKIN TEAR DULOXETINE HCL 60MG EC CAP TAKE ONE CAPSULE BY MOUTH EVERY ACTIVE DAY REPLACES CITALOPRAM PRESCRIPTION FERROUS GLUCONATE 324MG TAB TAKE ONE TABLET BY MOUTH EVERY ACTIVE OTHER DAY FOR ANEMIA FINASTERIDE 5MG TAB TAKE ONE TABLET BY MOUTH EVERY DAY FOR ACTIVE PROSTATE GAUZE PAD 4IN X 4IN 8-PLY NONSTERILE USE GAUZE SPONGE/PAD ACTIVE GAUZE PAD 4IN X 4IN 8-PLY NONSTERILE TOPICALLY DIRECTED FOR WOUND CARE HYDROCHLOROTHIAZIDE 12.5MG TAB TAKE ONE TABLET BY MOUTH ACTIVE EVERY DAY FOR BLOOD PRESSURE LIDOCAINE 5% PATCH APPLY 1 PATCH TOPICALLY EVERY DAY FOR ACTIVE UP TO 12 HOURS FOR PAIN LISINOPRIL 10MG TAB TAKE ONE TABLET BY MOUTH EVERY DAY FOR ACTIVE BLOOD PRESSURE METOPROLOL TARTRATE 25MG TAB TAKE ONE TABLET BY MOUTH ACTIVE (S) TWICE A DAY FOR BLOOD PRESSURE MULTIVIT/OPHTH AREDS2/LUTE/ZEAX CAP/TAB TAKE 1 CAP/TAB BY ACTIVE MOUTH TWICE A DAY FOR EYE HEALTH PANTOPRAZOLE NA 40MG EC TAB TAKE ONE TABLET BY MOUTH EVERY ACTIVE EVENING TO DECREASE STOMACH ACID -TAKE ON AN EMPTY STOMACH, AT LEAST ONE-HALF HOUR BEFORE EATING ROSUVASTATIN CA 20MG TAB TAKE ONE TABLET BY MOUTH EVERY ACTIVE (S) DAY FOR CHOLESTEROL SENNOSIDES 8.6MG TAB TAKE ONE TABLET BY MOUTH EVERY DAY ACTIVE AND TAKE ONE TABLET EVERY DAY NEEDED FOR CONSTIPATION TAMSULOSIN HCL 0.4MG CAP TAKE TWO CAPSULES BY MOUTH AT ACTIVE BEDTIME LABS SMA-7: SODIUM 141 (01/06/24) POTASSIUM 3.8 (01/06/24) CHLORIDE 107 (01/06/24) CO2 26 (01/06/24) UREA NITROGEN 13 (01/06/24) CREATININE 0.8 (01/06/24) GLUCOSE 95 (01/06/24) CREATININE 0.8 (01/06/24) Patient was informed of available lab results associated with today's visit. Assessment: Called and spoke with Jennyfer's daughter Raine and Jennyfer was in the background. Raine was involved in primary care visit last November and aware of med changes. In speaking with her, she as well as the patient believe the LE edema has improved. Raine didn't have BP readings but states that N is visiting weekly obtaining patient's BP and weights. Raine asked if Vet should really proceed and have the colonoscopy asking if it would change the course of care for . She has concerns about putting Beckat through the difficulities of this procedure and the prep involved. Will co sign Dr. Birmingham. [facility] Abel RN [phone] Spoke with RN who confirms she is seeing patient weekly for BP management, med set up and weights. 12/19 126/60 12/25 130/80 weight 291 01/01 140/70 weight 288 Patient does wear knee high compression. Abel obtained race and sports book writer's direct phone number and clinic fax number. She will continue to monitor BP and weights and will fax monthly updates to clinic. PLAN: Will update Dr. Birmingham to the above. See Jennyfer's daughter's concerns regarding GI work up. /chadwick/ ERINN FLANNERY RN REGISTERED NURSE Signed: 01/07/2024 09:22 Receipt Acknowledged By: 01/07/2024 14:22 /corry BIRMINGHAM MD PHYSICIAN, [facility] 01/07/2024 ADDENDUM STATUS: COMPLETED Normally if this was just for screening for colon cancer, I would say he would not a colonoscopy. Need but since his hemoglobin levels are low, as are his iron numbers, I suspect he is bleeding somewhere slowly in his GI tract. The colonoscopy will help us, hopefully, find where the bleeding is and stop it before it causes Mr. Cohn any trouble like shortness of breath and fatigue. Blood pressures look good! /corry BIRMINGHAM MD PHYSICIAN, [facility] Signed: 01/07/2024 14:22 Receipt Acknowledged By: 01/07/2024 14:42 /corry FLANNERY RN REGISTERED NURSE 01/07/2024 ADDENDUM STATUS: COMPLETED Spoke with Raine and shared Dr. Birmingham's message about proceeding with the colonoscopy. She reports understanding and is agreeable with completing this test for Jennyfer. Also shared that race and sports book writer was able to connect with home health nurse Abel and that Jennyfer's BP and weights look good. /chadwick/ ERINN FLANNERY RN REGISTERED NURSE Signed: 01/07/2024 14:44 01/21/2024 ADDENDUM STATUS: COMPLETED Raine Burger's daughter called race and sports book writer and shared some concerns. She continues to have reservations about Jennyfer doing a colonoscopy stating she would be doing the prep with patient and bringing him to the appt. She is worried about him tolerating this. She mentions that back in 2020 Jennyfer was seen at [facility] for rib pain and vomitting. He had imaging done and it was found that patient had lesions on his kidney's. Jennyfer was supposed to f/u with Nephrology but he never did. Raine states that Jennyfer also had hematuria around that time before. She mentions a family history, including herself of bladder cancer. She wonders if this is why Jennyfer has anemia. She is wondering if this could be looked into first before doing the colonoscopy. She states that if Jennyfer has something going on with his kidneys, they may not want to pursue anything anyway citing Jennyfer's age. She has outside records and will be sending them via [facility] for review. [employer] did reinforce Dr. Birmingham's concerns with Jennyfer having a slow bleed somewhere and his recommendation to complete the colonoscopy. Raine remains very uneasy about this. She also mentions that Jennyfer is now having urinary incontinence during the day which before, she states he had this just at night. /chadwick/ ERINN FLANNERY RN REGISTERED NURSE Signed: 01/21/2024 14:25 Receipt Acknowledged By: 01/21/2024 15:18 /corry BIRMINGHAM MD PHYSICIAN, [facility] 01/21/2024 ADDENDUM STATUS: COMPLETED Will look out for those records /corry BIRMINGHAM MD PHYSICIAN, [facility] Signed: 01/21/2024 15:18 ERINN FLANNERY [facility]
--- OUTSIDE RECORDS SUMMARY | 2024-02-17 12:52 | XMS_ITS | Encounter Summary ---
Author Name [facility] [place] [facility] [place] [facility] [place] Address [address] [place] [address] Care Team Providers Care Filter Tank Tender Helper Name Role Phone BRINA BIRMINGHAM Primary Care [...] PLATI LULA BLUE COMP Jul 22, 2016 [id number] [phone] JACK COHN PATIENT ANTHEM [employer]BS [place] PREFERRED PROVIDER ORGANIZAT ION (PPO) PLATI NUM BLUE COMP Jul 22, [id number] [phone] JACK COHN PATIENT ANTHEM BCBS [place] PREFERRED PROVIDER ORGANIZAT ION (PPO) PLATI NUM BLUE COMP Jul 22, 2016 [id number] [phone] JACK COHN PATIENT [place]BS [place] PREFERRED PROVIDER ORGANIZAT ION (PPO) PLATI NUM BLUE COMP Jul 22, 2016 [id number] [phone] JACK COHN PATIENT BCBS [facility] (WNR) MEDICARE ADVANTAGE [facility] (WNR) Jul 22, 2016 [id number] [phone] JACK COHN PATIENT BCBS [facility] (WNR) MEDICARE ADVANTAGE [facility] (WNR) Jul 22, 2016 [id number] [phone] JACK COHN MEDICARE (WNR) MEDICARE (M) PART A November 19, 2004 PART A [id number] JACK COHN PATIENT MEDICARE (WNR) MEDICARE (M) PART B November 19, 2004 PART B [id number] JACK COHN PATIENT PRIME THERAPEUTI CS RX PRESCRIPT ION BCBS [facility] Jul 22, 2016 [id number] [phone] JACK COHN PATIENT Selected Encounter This section includes the information on record at [place] for the Encounter. Date/Time Encounter Type Encounter Description Reason Provider Source Jan 30, 2024 07:45 AM CONFORMITY EVALUATION AUDIOLOGY ICD-10-CM Z46.1 Encounter for fitting and adjustment of hearing aid ADAM GARRISON Chitra Encounter Template Text not used by [place] Assessments - Encounter Diagnoses This section includes the primary and secondary diagnoses documented for the Encounter. Date/Time Primary/Secondary Diagnosis Diagnosis Name Provider Source Jan 30, 2024 08:33 AM PRIMARY Encounter for fitting and adjustment of hearing aid SOFIE GARRISON [facility] Jan 30, 2024 08:33 AM SECONDARY Sensorineural hearing loss, bilateral SOFIE GARRISON [facility] Jan 30, 2024 08:33 AM SECONDARY Tinnitus, bilateral SOFIE GARRISON [facility] Plan of Treatment: Future Appointments (+ 6 months) and Future Tests (+/- 45 days) The Plan of Treatment section includes future care activities for the patient from all [place] treatmentfacilities. This section includes future appointments and future orders which are active, pending or scheduled. Future Appointments This section includes appointments that were scheduled to occur 6 months from the date of the Encounter, up to a maximum of 20 appointments. The data comes from all [place] treatment facilities. Appointment Date/Time Appointment Type Appointme nt Facility Name Feb 27, 2024 05:10 PM AMBULATORY - NONE [facility] Lab Results: +/- 30 days of the encounter This section includes the Chemistry and Hematology Lab Results on record with [place] for the patient. Radiology Reports and Pathology [...] December 19, 2023 12:41 PM Reporting Lab: [facility] [id number] Performing Lab: [facility] [id number] CREATININE 0.8 mg/dL 0.7-1.2 UREA NITROGEN 13 [...] and tobacco- related health factors from the [place] facility where the Encounter took place. Current Smoking Status This section includes the most current smoking, or tobacco-related health factor, from the [place] facility where the Encounter took place. Date/Time Current Smoking Status Comment Leonard cárdenas Apr 23, 2023 01:00 PM VA-TOBACCO NEVER USED [facility] Tobacco Use History This section includes a history of the smoking, or tobacco-related health factors, that were collected on or before the date of the Encounter. The data comes from the [place] facility where the Encounter took place. Date/Time [...] ALL of a patient's completed or amended [place] Advance and Rescinded Directives. The entries below indicate that a directive exists for the patient, but an actual copy is not included with this document. The data comes from all [facility]. Date Advance Directives Provider Source Mar 20, 2023 ADVANCE DIRECTIVE DISCUSSION ELY BERTRAND [facility] Mar 20, 2023 ADVANCE DIRECTIVE ELY BERTRAND [facility] Aug 02, 2003 ADVANCE DIRECTIVE SHANDA CESAR [facility] Encounter Notes: All associated encounter notes This section contains the clinical notes associated to the Encounter. Date/Time Encounter Note(s) Provider Source Jan 30, 2024 08:08 AM AUDIOLOGY NOTE: LOCAL TITLE: AUDIOLOGY CLINIC NOTE STANDARD TITLE: AUDIOLOGY NOTE DATE OF NOTE: JAN 30, 2024@08:08 ENTRY DATE: JAN 30, 2024@08:08:47 AUTHOR: JACOBO GARRISON COSIGNER: URGENCY: STATUS: COMPLETED SUBJECT: Fitting HEARING AID FITTING DIAGNOSIS: Encounter for Fitting and Adjustment of Hearing Aid Sensorineural loss Tinnitus REASON FOR VISIT: Therapeutic - hearing aid fitting, conformity evaluation (real-ear measures), orientation and counseling. was seen for Hearing Aid [place] Appointment OTOSCOPY: Free of excessive cerumen. Normal anatomy bilaterally. HISTORY: has a pair of rarely worn RICs. HEARING AIDS: 01/30/24 AUDIOLOGY INSIO C&G 7AX HS-R R [id number] 01/23/27 06/22/24 618 MPLS 01/30/24 AUDIOLOGY INSIO C&G 7AX HS-R L [id number] 01/23/27 06/22/24 618 MPLS ACCESSORIES: Returned for credit today. Push button can be used for volume changes. 01/30/24 AUDIOLOGY MINIPOCKET REMOTE [id number] ACTION: Hearing aids are a good physical fit. Hearing aids were programmed to prescriptive targets, which were derived from the [place]'s hearing loss. Real- ear measures (conformity evaluation) were completed (NAL-NL2). Gain and output were adjusted to ensure audibility and comfort. Loudness intolerance was measured using a 90 dB MPO tone sweep and the patient was able to tolerate the output of the hearing device(s). [place]'s subjective impressions were considered while adjusting the hearing aids. Indicator tones were demonstrated for [place]. Volume control enabled - right raise, left lower push button was counseled regarding: -Full-time hearing aid use and acclimating to amplification (acclimitization manager welding activated for [place]) -Realistic expectations for hearing aid use -Appropriate communication strategies -How to charge the hearing aids -Location and operation of all controls -Proper care and maintenance -[facility] and Call Center contact information and services, including the trial period. reported good sound quality and equal balance between ears after adjustments were made. [place] reported a comfortable fit in both ears. [place] demonstrated understanding of the new aids and was able to insert the hearing aids appropriately, as well as manipulate the volume control and charging unit. Prognosis for success is good, given the [place]'s response to the hearing aids. Hearing aids were issued and batteries and supplies were mailed. was provided with a copy of [place] issuance form 2477b (mailed to ). PLAN: will return to clinic as needed for service as needed. Patient is in agreement with this plan. /chadwick/ KJ FRENCH STAFF ICU SPECIALIST Signed: 01/30/2024 08:[address] [facility]
--- OUTSIDE RECORDS SUMMARY | 2024-02-17 12:53 | XMS_ITS | Clinical Summary ---
Author Organization [facility] Address [place], [place] [address] Care Team Providers Care Pole Inspector Name Role Phone Pcp, No Primary Care Provider Unavailabl e Allergies Active Allergy Reactions Criticality Noted Date Comments Morphine Confusion 02/05/2013 Other reaction(s): Confusion Medications Medication Sig Dispensed Refills Start Date End Date Status gabapentin (NEURONTIN) 800 mg tablet Take 1 tablet by mouth 3 times daily. 0 07/20/2016 Active Terazosin HCl 10 mg capsule Take 20 mg by mouth at bedtime. Active finasteride (PROSCAR) 5 mg tablet Take 5 mg by mouth at bedtime. Active pantoprazole (PROTONIX) 40 mg delayed-release tablet Take 40 mg by mouth 2 times daily before meals. Active WalkerIndications: Lumbar stenosis Rolling Walker for home use. 1 Device 08/18/2016 Active acetaminophen (TYLENOL) 325 mg tabletIndications: Lumbar stenosis Take 2 tablets by mouth every 4 hours if needed. Max acetaminophen dose: 4000mg in 24 hrs. 60 tablet 08/20/2016 Active DULoxetine (CYMBALTA) 20 mg Delayed-release capsule Take 60 mg by mouth. Acti ve lisinopril-hydroch lorothiazide 20-12.5 mg tablet (PRINZIDE) Take 1 tablet by mouth. Active Active Problems Problem Noted Date Diagnosed Date Acute delirium 08/18/2016 BPH (benign prostatic hyperplasia) 08/18/2016 L4-L5 lytic spondylolisthesis with stenosis. Overview: S/p 1. L4-L5 Vargas laminectomy for spondylolisthesis. 2. L4-L5 pedicle screw instrumentation. 3. L4-L5 interbody fusion. 4. L4-L5 posterolateral fusion. 5. L4-L5 interbody device placement. 6. Autograft harvest same incision. 7. Allograft. 8. Microdissection. 9. Stealth 3-D volumetric stereotactic navigation for pedicle screw placement By Dr. Michel on 08/16/16 Leukocytosis 08/18/2016 S/P cervical spinal fusion X 3 07/30/2016 Depression 07/30/2016 Chronic GERD 07/30/2016 Hypertension 05/29/2011 Resolved Problems Problem Noted Date Diagnosed Date Resolved Date Lumbar stenosis 08/08/2016 08/18/2016 Overview: S/p . L4-L5 Vargas laminectomy for spondylolisthesis. 2. L4-L5 pedicle screw instrumentation. 3. L4-L5 interbody fusion. 4. L4-L5 posterolateral fusion. 5. L4-L5 interbody device placement. 6. Autograft harvest same incision. 7. Allograft. 8. Microdissection. 9. Stealth 3-D volumetric stereotactic navigation for pedicle screw placement By Dr. 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 06/21/2011 07/12/2011 S/P knee replacement 06/13/2011 011 Overview: L, 11-17-11 Hypertrophy of prostate with urinary obstruction and other lower urinary tract symptoms (LUTS) 05/29/2011 08/18/2016 Immunizations Name Administration Dates Next Due Influenza, High-dose Inactivated 04/16/2017,03/23 Influenza, IIV3 (Age 6-35 mos) 05/14/2010,2009 Influenza, IIV3 (Age >=3 years) 04/25/20 12,05/14/2010,06/04/2006,2002 Influenza, Inactivated IIV3 (Age 65+ Years) Preserv Free 04/25/2018 Pneumococcal Poly,23-Valent (Pneumovax) 05/14/2003 Pneumococcal conj 13-Valent (Prevnar 13) 04/16/2017 Td (Age >=7 Years) 11/16/2002 Family History Medical History Relation Name Comments Diabetes Brother Heart Disease Brother Other Father polio Diabetes Mother Other Mother polio Relation Name Status Comments Brother Father Mother Social History Tobacco Use Types Packs/Day Years Used Date Smoking Tobacco: Former Cigarettes Q uit: 07/30/2000 Smokeless Tobacco: Never Tobacco Cessation:Counseling Given: Yes Alcohol Use Standard Drinks/Week Comments No 0 (1 standard drink = 0.6 oz pur e alcohol) very seldom if at all PHQ-2 Answer Date Recorded PHQ-2 Score 1 09/21/2018 Social Connections Answer Date Recorded Frequency of Communication with Friends and Fami ly Not on file 07/13/2021 Financial Resource Strain Answer Date R ecorded Difficulty of Paying Living Expenses Not on file 07/13/2021 Difficulty of Paying Living Expenses Not on file 07/13/2021 Sex and Gender Information Value Date Recorded Sex Assigned at Not on file Gender Identity Not on file Sexual Orientation Not on file Obstetrics History Last Filed Vital Signs Vital Sign Reading Time Taken Comments Blood Pressure 104/67 04/25/2018 10:22 AM CDT Pulse 95 04/25/2018 10:22 AM CDT Temperature 34.8 ??C (94.7 ??F) 04/25/2018 10:22 AM C DT Respiratory Rate 16 08/20/2016 7:34 AM CHIMNEY REPAIRER Oxygen Saturation 90% 04/25/2018 10:22 AM CDT Inhaled Oxygen Concentration - - Weight 129.3 kg (285 lb) 04/25/2018 10:22 AM CDT Height 176 cm (5' 9.29) 04/25/2018 10:22 AM CDT Body Mass Index 41.73 04/25/2018 10:22 AM CDT Plan of Treatment Health Maintenance Due Date Last Done Comments Tdap 1951 Zoster (shingles) series for age 50+ (1 of 2) 1990 Medicare Wellness for age 65+ 2005 Tetanus booster 11/16/2012 11/16/2002 BMI (ht and wt on same day) for age 18+ 04/25/2019 04/25/2018, 07/30/2016, 07/20/2016, Additional history exists Depression screening for age 12+ 04/25/2019 04/25/20 18, 07/20/2016 Pneumococcal series for age 65+ (3 of 3 - PPSV23 or PCV20) 04/16/2022 04/16/2017, 05/14/2003 COVID-19 vaccine series ( season) 2023 05/04/2022, 11/07/2021, 04/26/2021 Influenza for age 65+ 03/22/2024 04/25/2018 , 04/16/2017, 04/18/2016 (Completed outside of [facility]), Additional history exists Medical Devices Implanted Type Area Assessment Clinician Device Identifier Shelf Expiration Date Model / Serial / Lot Girma Lmbr 40x5.5mm Tsrh 3d Cvd Titnm - [id number] Implanted:Qty: 4 on 08/16/2016 by Luis Alberto Michel MD at [facility] Spine Implants N/A: Spine Medtronic Spine/Ortho [id number]# / / [id number] one 1-4mm 30cc Medtronic Chips Canclls Freeze Dried Implanted:Qty: 1 on 08/16/2016 by Luis Alberto Michel MD at [facility] Explanted:at [facility] (Quantity not on file) N/A: Spine Medtronic Spine/Ortho 05/17/2021 [id number] / [id number] / [id number] one Matrix 10cc Nicole Plus Paste Dbm Implanted:Qty: 1 on 08/16/2016 by Luis Alberto Michel MD at [facility] Explanted:at [facility] (Quantity not on file) N/A: Spine Medtronic Spine/Ortho 03/08/2018 [id number] / [id number] / Spacer Lmbr 8x22mm Capstone Tlif Peek - [id number] Implanted:Qty: 1 on 08/16/2016 by Luis Alberto Michel MD at [facility] N/A: Spine Medtronic Spine/Ortho [id number]# / / [id number] Set Screw Lmbr Tsrh 3dx - [id number] Implanted:Qty: 4 on 08/16/2016 by Luis Alberto Michel MD at [facility] N/A: Spine Medtronic Spine/Ortho [id number]# / / Cnnctr Lmbr Sm Tsrh 3dx Offsettitnm - [id number] Implanted:Qty: 4 on 08/16/2016 by Luis Alberto Michel MD at [facility] N/A: Spine Medtronic Spine/Ortho [id number]# / / Screw Lmbr Post 7.5x50mm Tsrh 3dx Og Thin Va - [id number] Implanted:Qty: 4 on 08/16/2016 by Luis Alberto Michel MD at [facility] N/A: Spine Medtronic Spine/Ortho [id number] / / Advance Directives Documents on File Type Date Recorded Patient Ballistics Teacher Expl anation Healthcare Directive 08/16/2016 7:02 AM 11/24/2004 * Full Code (Latest Code Status on File) Date Activated Date Inactivated Comments 08/16/2016 5:38 PM 08/20/2016 5:11 PM Question Answer Comments Code Status Discussion: Not DiscussedPer Advance Care Plan * Full Code Date Activated Date Inactivated Comments 08/16/2016 5:38 AM 08/16/2016 5:38 PM Question Answer Comments Code Status Discussion: Not DiscussedPer Advance Care Plan Care Teams Pole Inspector Relationship Specialty Start Date End Date Pcp, No . PCP - General 04/25/18
--- OUTSIDE RECORDS SUMMARY | 2024-02-17 12:53 | XMS_ITS | Encounter Summary ---
Author Name [facility] Address [address] [place] [address] Care Team Providers Care Lastex Operator Name Role Phone BRINA BIRMINGHAM Primary [...] PLATI LULA BLUE COMP Jul 22, 2016 [id number] [phone] JACK COHN PATIENT ANTHEM [place] PREFERRED PROVIDER ORGANIZAT ION (PPO) PLATI NUM BLUE COMP Jul 22, 2016 [id number] [phone] JACK COHN PATIENT ANTHEM [place] PREFERRED PROVIDER ORGANIZAT ION (PPO) PLATI NUM BLUE COMP Jul 22, 2016 [id number] [phone] JACK COHN PATIENT [place] PREFERRED PROVIDER ORGANIZAT ION (PPO) [place] NUM BLUE COMP Jul 22, 2016 [id number] [phone] JACK COHN PATIENT [place] [facility] (WNR) MEDICARE ADVANTAGE [facility] (WNR) Jul 22, 2016 [id number] [phone] JACK COHN PATIENT [place] [facility] (WNR) MEDICARE ADVANTAGE [facility] (WNR) Jul 22, 2016 [id number] [phone] JACK COHN MEDICARE (WNR) MEDICARE (M) PART A November 19, 2004 PART A [id number] [phone] JACK COHN MEDICARE (WNR) MEDICARE ([place]) PART B November 19, 2004 PART B [id number] [phone] JACK COHN PATIENT PRIME THERAPEUTI CS RX PRESCRIPT ION BCBS [facility] Jul 22, 2016 [id number] [phone] JACK COHN PATIENT Selected Encounter This section includes the information on record at [place] for the Encounter. Date/Time Encounter Type Encounter Description Reason Pro vider Source Feb 12, 2024 11:13 AM Outpatient Encounter ADMIN PAT ACTIVTIES (MASNONCT) IHE Encounter Template Text not used by [...] 27, 2024 05:10 PM AMBULATORY - NONE [facility] Social History: Smoking Status (Most current) and Tobacco Use (All prior to encounter date) This section includes the most current, and the historical, smoking and tobacco- related health factors from the [facility] facility where the Encounter took place. Current Smoking Status This section includes the most current smoking, or tobacco-related health factor, from the [place] facility where the Encounter took place. Date/Time Current Smoking Status Comment Facil ity Apr 23, 2023 01:00 PM VA-TOBACCO NEVER USED [facility] Tobacco Use History This section includes a history of the smoking, or tobacco-related health factors, that were collected on or before the date of the Encounter. The data comes from the [place] facility where the Encounter took place. Date/Time Smoking Status/Tobacco Use Comment F acility Apr 24, 2022 09:43 AM VA-TOBACCO FORMER USER [facility] Apr 24, 2022 09:43 AM VA-TOBACCO QUIT 15 YRS OR MORE [facility] Feb 23, 2021 11:00 AM VA-TOBACCO FORMER USER [facility] Feb 23, 2021 11:00 AM VA-TOBACCO QUIT 15 YRS OR MORE [facility] Aug 04, 2019 03:40 PM VA-TOBACCO FORMER USER [facility] Aug 04, 2019 03:40 PM VA-TOBACCO QUIT 15 YRS OR MORE [facility] Jul 28, 2018 10:03 AM VA-TOBACCO FORMER USER [facility] Jul 28, 2018 10:03 AM VA-TOBACCO QUIT 15 YRS OR MORE [facility] Sep 12, 2017 09:15 AM FORMER TOBACCO USE >1Y <7Y [facility] November 30, 2016 07:51 AM FORMER TOBACCO USER 7Y OR GREATE R [facility] Sep 19, 2015 11:18 AM FORMER TOBACCO USE >1Y <7Y [facility] December 03, 2014 07:58 AM FORMER TOBACCO USER 7Y OR GREATE R [facility] December 01, 2013 07:39 AM LIFETIME NON-TOBACCO USER [facility] May 07, 2012 07:53 AM FORMER TOBACCO USE >1Y <7Y [facility] Aug 01, 2011 08:59 AM FORMER TOBACCO USE >1Y <7Y [facility] Jul 24, 2010 07:49 AM CURRENT TOBACCO USER [facility] Aug 03, 2009 10:18 AM CURRENT TOBACCO USER [facility] Aug 23, 2008 07:54 AM CURRENT TOBACCO USER [facility] Aug 15, 2007 07:52 AM CURRENT TOBACCO USER [facility] 2006 07:43 AM FORMER TOBACCO USE >1Y <7Y [facility] Advance Directives: All historical and current [...] 20, 2023 ADVANCE DIRECTIVE DISCUSSION ELY BERTRAND [facility] Mar 20, 2023 ADVANCE DIRECTIVE ELY BERTRAND [facility] Aug 02, 2003 ADVANCE DIRECTIVE SHANDA CESAR [facility] Encounter Notes: All associated encounter notes This section contains the clinical notes associated to the Encounter. Date/Time Encounter Note(s) Provider Source Feb 12, 2024 11:13 AM REPORT OF CONTACT: LOCAL TITLE: APPOINTMENT SCHEDULING NOTE STANDARD TITLE: REPORT OF CONTACT DATE OF NOTE: FEB 12, 2024@11:13 ENTRY DATE: FEB 12, 2024@11:13:13 AUTHOR: PIEDAD BEST EXP COSIGNER: URGENCY: STATUS: COMPLETED Attempted to schedule Recall/Patient Center Scheduling (PtCSch) Contact attempt made to 1st attempt Telephone 2nd attempt Letter - Sent letter by regular [place] mail to address on file: SHANTANU COHN [facility] [place], [place] [address] 3rd attempt Text message Disposition order request after Feb Remer wants to call back to schedule If calls back, schedule appt for: CT Chest, low dose, ANTHONY [id number] and US Renal, ANTHONY [id number] /chadwick/ PIEDAD BEST [facility] Signed: 02/12/2024 11:14 Receipt Acknowledged By: 02/12/2024 16:05 /chadwick/ BRINA BIRMINGHAM MD PHYSICIAN, [facility] PIEDAD BEST [facility]
--- OUTSIDE RECORDS SUMMARY | 2024-02-17 12:53 | XMS_ITS | Clinical Summary ---
Author Organization [facility] Address [address] [place] [address]. [place] [address] Care Team Providers Care Ceramic Products Sales Engineer Name Role Phone [facility] Primary Care Prov ider Allergies Active Allergy Reactions Criticality Noted Date Comments Morphine 02/05/2013 Other reaction(s): Confusion Medications Medication Sig Dispensed Refills Start Date End Date Status gabapentin (NEURONTIN) 800 MG tablet Take 800 mg by mouth daily 07/20/2016 Active finasteride (PROSCAR) 5 MG tablet Take 5 mg by mouth daily Active terazosin (HYTRIN) 10 MG capsule Take 20 mg by mouth daily Active pantoprazole (PROTONIX) 40 MG EC tablet Take 40 mg by mouth daily Active lisinopril-hydrochl orothiazide (PRINZIDE/ZESTORETI C) 20-12.5 MG per tablet Take 1 tablet by mouth daily Active DULOXETINE HCL PO Take 60 mg by mouth daily Active HYDROcodone-acetami nophen (NORCO) 5-325 MG per tabletIndications:P himosis Take 1 tablet by mouth every 6 hours as needed for severe pain 10 tablet 03/07/2018 Active Additional Information Patient not taking.Reported on 04/28/2018 ibuprofen (ADVIL/MOTRIN) 200 MG tablet Take 600 mg by mouth 4 times daily Active Active Problems Problem Noted Date Diagnosed Date Phimosis 03/07/2018 Social History Tobacco Use Types Packs/Day Years Used Date Smoking Tobacco: Former Cigarettes Q uit: 2002 Smokeless Tobacco: Never Alcohol Use Standard Drinks/Week Comments No 0 (1 standard drink = 0.6 oz pur e alcohol) Adolescent Education Answer Date Record ed Getting School Help Needed Not on file 09/13 Sex and Gender Information Value Date Recorded Sex Assigned at Not on file Gender Identity Not on file Sexual Orientation Not on file Last Filed Vital Signs Vital Sign Reading Time Taken Comments Blood Pressure 152/61 03/09/2018 7:35 AM CDT Pulse 90 04/28/2018 8:53 AM CDT Temperature 36.1 ??C (96.9 ??F) 03/09/2018 7:35 AM CD T Respiratory Rate 16 03/09/2018 7:35 AM CDT Oxygen Saturation 92% 04/28/2018 8:53 AM CDT Inhaled Oxygen Concentration - - Weight 128.4 kg (283 lb) 04/28/2018 8:53 AM CDT Height 180.3 cm (5' 11) 04/28/2018 8:53 AM CDT Body Mass Index 39.47 04/28/2018 8:53 AM CDT Plan of Treatment Health Maintenance Due Date Last Done Comments ADVANCE CARE PLANNING 1940 ANNUAL REVIEW OF HM ORDERS 1940 ZOSTER IMMUNIZATION (1 of 2) 1990 RSV VACCINE ( & 60+) (1 - 1-dose 60+ series) 2000 FALL RISK ASSESSMENT 2005 Pneumococcal Vaccine: 65+ Years (3 of 3 - PPSV23 or PCV20) 04/16/2022 04/16/2017, 05/14/2003 COVID-19 Vaccine (4 - 2022- season) 2023 05/04/2022, 11/07/2021, 04/26/2021 PHQ-2 (once per calendar year) 2023 INFLUENZA VACCINE (#1) 2024 3, 04/26/2021, 04/22/2020, Additional history exists DTAP/TDAP/TD IMMUNIZATION (2 - Td or Tdap) 11/08/2032 11/08/2022, 11/16/2002 HPV IMMUNIZATION Aged Out No longer e ligible based on patient's age to complete this topic IPV IMMUNIZATION Aged Out No longer e ligible based on patient's age to complete this topic MENINGITIS IMMUNIZATION Aged Out No l onger eligible based on patient's age to complete this topic RSV MONOCLONAL ANTIBODY Aged Out No l onger eligible based on patient's age to complete this topic Advance Directives For more information, please contact: [phone] * Full Code (Latest Code Status on File) Date Activated Date Inactivated Comments 03/09/2018 9:10 AM Care Teams Ceramic Products Sales Engineer Relationship Specialty Start Date End Date [place], [place] [address] PCP - General 03/07/18
--- OUTSIDE RECORDS SUMMARY | 2024-02-17 12:53 | XMS_ITS | Referral Summary ---
Author Organization [facility] Address [address] [place] [address]. [place] [address] Care Team Providers Care Business Banking Manager Name Role Phone [facility] Primary Care Prov ider Allergies Active Allergy [...] 04/28/2018 8:53 AM CDT Plan of Treatment Not on file Advance Directives For more information, please contact: [phone] * Full Code (Latest Code Status on File) Date Activated Date Inactivated Comments 03/09/2018 9:10 AM Care Teams Business Banking Manager Relationship Specialty [place] [address] PCP - General 03/07/18
--- NOTE | 2024-02-17 13:00 | CRLHL7_ITS ---
For Patients: As a result of the Century Cures Act, medical imaging exams and procedure reports are released immediately into your electronic medical record. You may view this report before your referring provider. If you have questions, please contact your health care provider. Indication: Previous ectopic, took medication, f/u previous Technique: Noncontrast CT left knee, including metal suppression algorithm. Please note that all CT scans at this facility use dose modulation, iterative reconstruction, and/or weight-based dosing when appropriate to reduce radiation dose to as low as reasonably achievable. Comparison: Plain films 02/20/2023 Findings: Total knee arthroplasty hardware intact. There is no fracture. No hardware loosening. Circumscribed fluid within the anteromedial soft tissues adjacent to the intact proximal patellar tendon noted. This measures 5.0 x 1.7 x 2.9 cm. A trace amount of joint fluid is present which is considered incidental. Impression: Anteromedial subcutaneous bursitis or hematoma measuring 5.0 x 1.7 x 2.9 cm. No underlying fracture or hardware loosening. Underlying patellar tendon is intact. Please note that all CT scans at this facility use dose modulation, iterative reconstruction, and/or weight-based dosing when appropriate to reduce radiation dose to as low as reasonably achievable. Dictated by Roderick Jones MD @ 02/18/2024 8:43:07 AM (Electronically Signed)
== END 2024-02-17 12:45 | disposition home or self-care (01) ==
LOC: CT 12:46
PROVIDERS: Visit Provider Nurse Practitioner Gerontology
DX: Z91.81 History of falling (principal); M70.52 Other bursitis of knee, left knee
CPT/HCPCS: 73700

== ENCOUNTER 2024-04-18 12:26 | Emergency (ER) | payer MEDICARE, BC, SELFPAY ==
[2024-04-18] VITALS (16 sets, daily range): BP systolic 106–131; BP diastolic 55–75; PULSE 63–95; RESP 26; TEMP 36.2; O2SAT 88–91; BMI 39.3
--- NOTE | 2024-04-18 13:34 | ED.GENADULT ---
HPI - General Adult General Chief complaint: Weakness Stated complaint: Low blood pressure Time Seen by Provider: 04/18/24 12:32 History of Present Illness HPI narrative: This 83-year-old male comes in from [facility] where his blood pressure this morning had a systolic value of 87. He was feeling some lightheadedness. He is on several anti hypertensive medications. He arrives here with a systolic pressure of 131. Repeat blood pressure shows a systolic value of 111. The patient is having no symptoms currently. He did have a [facility] with normal results. He is in chronic atrial fibrillation and is anticoagulated. His rate is also controlled. Related Data Home Medications ?Medication ?Instructions ?Recorded ?Confirmed duloxetine 60 mg capsule,delayed 60 mg PO DAILY 02/15/23 10/25/23 release (Cymbalta) finasteride 5 mg tablet 5 mg PO DAILY 02/15/23 10/25/23 tamsulosin 0.4 mg capsule (Flomax) 0.8 mg PO HS 02/15/23 10/25/23 acetaminophen 500 mg capsule 500 mg PO Q8H PRN 02/20/23 10/25/23 carboxymethylcellulose sodium 0.5 1 drp ophthalmic (eye) QID PRN 02/20/23 10/25/23 % eye drops in a dropperette (Refresh Plus) rosuvastatin 20 mg tablet 20 mg PO HS 02/20/23 04/18/24 sennosides 8.6 mg-docusate sodium 2 tab PO DAILY PRN Constipation 02/20/23 10/25/23 50 mg tablet (Stool Softener-Laxative) apixaban 5 mg tablet (Eliquis) 5 mg PO BID 06/03/23 10/25/23 metoprolol tartrate 25 mg tablet 25 mg PO DAILY 06/03/23 10/25/23 ferrous gluconate 324 mg (37.5 mg 324 mg PO DAILY 04/18/24 04/18/24 iron) tablet hydrochlorothiazide 12.5 mg tablet 12.5 mg PO DAILY 04/18/24 04/18/24 pantoprazole 40 mg tablet,delayed 40 mg PO DAILY 04/18/24 04/18/24 release Previous Rx's ?Medication ?Instructions ?Recorded lisinopril 10 mg tablet 10 mg PO DAILY #30 tabs 02/25/23 Allergies Allergy/AdvReac Type Severity Reaction Status Date / Time No Known Drug Allergies Allergy Verified 10/25/23 13:31 Review of Systems Status of ROS: Reports: 10 or more systems reviewed and unremarkable except as noted in History and below Narrative: Constitutional: No fevers, no weight gain or loss. Eyes: No discharge. No vision changes. HENT: No congestion, no sore throat, no ear pain. Cardiovascular: No chest pain, no palpitations. Respiratory: No shortness of breath, no wheezes, no cough. Gastrointestinal: No abdominal pain, no vomiting, no diarrhea. Genitourinary: No dysuria, no hematuria. Musculoskeletal: Normal range of motion. Skin: No rashes, no pruritis. Neurological: No weakness, sensory change, speech change. He reports lightheadedness at times. Endo/Heme/Allergies: No bruising or bleeding. No polydipsia. Pysch: no suicidality, no anxiety, no insomnia. All other systems reviewed and are negative. [facility] Medical History (Updated 04/18/24 @ 13:42 by Maxime Salgado MD) POLST (Physician Orders for Life-Sustaining Treatment) ?Z78.9 - Other specified health status (ICD-10) Fall ?W19.XXXA - Unspecified fall, initial encounter (ICD-10) Hypertension ?I10 - Essential (primary) hypertension (ICD-10) Dementia ?F03.90 - Unspecified dementia, unspecified severity, without behavioral disturbance, psychotic disturbance, mood disturbance, and anxiety (ICD-10) Delirium ?R41.0 - Disorientation, unspecified (ICD-10) History of leukocytosis ?Z86.2 - Personal history of diseases of the blood and blood-forming organs and certain disorders involving the immune mechanism (ICD-10) Spondylolisthesis at L4-L5 level ?M43.16 - Spondylolisthesis, lumbar region (ICD-10) Acute delirium ?R41.0 - Disorientation, unspecified (ICD-10) History of falling ?Z91.81 - History of falling (ICD-10) Gait instability ?R26.81 - Unsteadiness on feet (ICD-10) Muscle weakness ?M62.81 - Muscle weakness (generalized) (ICD-10) Obstructive sleep apnea ?G47.33 - Obstructive sleep apnea (adult) (pediatric) (ICD-10) Tobacco use disorder ?F17.200 - Nicotine dependence, unspecified, uncomplicated (ICD-10) Thyroid nodule ?E04.1 - Nontoxic single thyroid nodule (ICD-10) Shoulder pain ?M25.519 - Pain in unspecified shoulder (ICD-10) Osteoarthritis of knees, bilateral ?M17.0 - Bilateral primary osteoarthritis of knee (ICD-10) Morbid obesity ?E66.01 - Morbid (severe) obesity due to excess calories (ICD-10) Iron deficiency anemia ?D50.9 - Iron deficiency anemia, unspecified (ICD-10) Impaired fasting blood sugar ?R73.01 - Impaired fasting glucose (ICD-10) Benign prostatic hyperplasia with lower urinary tract symptoms ?N40.1 - Benign prostatic hyperplasia with lower urinary tract symptoms (ICD-10) Essential hypertension ?I10 - Essential (primary) hypertension (ICD-10) Gastroesophageal reflux disease ?K21.9 - Gastro-esophageal reflux disease without esophagitis (ICD-10) Major depressive disorder ?F32.9 - Major depressive disorder, single episode, unspecified (ICD-10) Surgical History Status post left knee replacement ?Z96.652 - Presence of left artificial knee joint (ICD-10) S/P cervical spinal fusion ?Z98.1 - Arthrodesis status (ICD-10) Family History Brother Diabetes Heart disease Mother Diabetes Polio Father Polio Social History (Updated 02/21/23 @ 10:21 by Prince Oliveira MD) Narrative: Retired. more than 40 years ago. Lives alone. DNR/DNI resuscitation status. POA: Ludivina (daughter), , and Rubi (daughter), . Living independently until hospitalization earlier this week when he was transferred to [facility]. What is your current living situation?: I presently have a place to live Problems where you live: no known problems Problems where you live details: n/a In the past 12 months, utilities in danger of being shut off: no In past 12 months, lack of transportation kept you from medical appts, meetings, work, or getting things needed for daily living: no In the past 12 mos, have been you worried that your food would run out before you had money to buy more?: never true In the past 12 mos, the food you bought just didn't last and you didn't have money to buy more?: never true Highest level of school completed/degree received: high school graduate Smoking Status: Former smoker Do you use any of these nicotine containing products: None Second hand tobacco smoke exposure: No How often do you have a drink containing alcohol: monthly or less How many standard drinks containing alcohol do you have on a typical day: 1 or 2 How often do you have six or more drinks on one occasion: Never AUDIT-C Alcohol total score: 1 Non-prescribed substance use: denies use Caffeine: Yes How often does anyone, including family, friends and others, physically hurt you: never How often does anyone, including family, friends and others, insult or talk down to you: never How often does anyone, including family, friends and others, threaten you with harm: never How often does anyone, including family, friends and others, scream or curse at you: never service: Yes Exam Narrative: Exam Narrative: Constitutional: Well-developed, well-nourished, no acute distress. HEENT: Normocephalic, atraumatic. Neck: Normal range of motion. Nontender. Supple. Heart: Irregular. No murmurs. Normal rate. Intact distal pulses. Lungs: Clear to auscultation. No chest discomfort. No wheezes, rhonchi, or rales. Abdomen: Normal bowel sounds. Nontender. No rebound tenderness. Genitalia: Deferred. Back: No midline tenderness. Normal range of motion. Extremities: Normal range of motion. No injury. Skin: Intact. No rash. Warm. No erythema or pallor. Neurologic: No altered sensation. No weakness. Alert and oriented. Psychiatric: No suicidality. No anxiety or depression. No insomnia. Nursing notes and vitals signs are reviewed. Const: Vital Signs, click to edit/add: Vital Signs - 24 hr 04/18/24 12:40 04/18/24 12:40 04/18/24 12:41 Temperature 97.1 F L Pulse Rate 83 95 Pulse Rate [Pulse Oximeter] 81 Respiratory Rate 26 H Blood Pressure 131/75 Blood Pressure [Le ft Upper Arm] 131/75 Pulse Oximetry 90 90 90 Oxygen Delivery Me thod Room Air 04/18/24 12:45 04/18/24 12:47 04/18/24 13:00 Temperature Pulse Rate 85 82 83 Pulse Rate [Pulse Oximeter] Respiratory Rate Blood Pressure 115/67 Blood Pressure [Le ft Upper Arm] Pulse Oximetry 90 89 90 Oxygen Delivery Me thod 04/18/24 13:02 04/18/24 13:15 04/18/24 13:17 Temperature Pulse Rate 81 86 84 Pulse Rate [Pulse Oximeter] Respiratory Rate Blood Pressure 111/63 123/58 L Blood Pressure [Le ft Upper Arm] Pulse Oximetry 90 89 90 Oxygen Delivery Me thod Course Vital Signs Vital signs: Initial Vital Signs Temperature 97.1 F L 04/18/24 12:40 Temperature Source Temporal Artery Scan 04/18/24 12:40 Pulse Rate 83 04/18/24 12:40 Pulse Rhythm Irregular 04/18/24 12:40 Respiratory Rate 26 H 04/18/24 12:40 Blood Pressure 131/75 04/18/24 12:40 Blood Pressure Mean 93 04/18/24 12:40 Blood Pressure Position Supine 04/18/24 12:40 Pulse Oximetry 90 04/18/24 12:40 Oxygen Delivery Method Room Air 04/18/24 12:40 Vital Signs Temperature 97.1 F L 04/18/24 12:40 Pulse Rate 83 04/18/24 12:40 Respiratory Rate 26 H 04/18/24 12:40 Blood Pressure 131/75 04/18/24 12:40 Pulse Oximetry 90 04/18/24 12:40 Oxygen Delivery Method Room Air 04/18/24 12:40 Temperature 97.1 F L 04/18/24 12:40 Pulse Rate 84 04/18/24 13:17 Respiratory Rate 26 H 04/18/24 12:40 Blood Pressure 123/58 L 04/18/24 13:17 Pulse Oximetry 90 04/18/24 13:17 Oxygen Delivery Method Room Air 04/18/24 12:40 Medical Decision Making MDM Narrative Medical decision making narrative: This patient comes in to check his blood pressure which was recorded at around 87 this morning. He has normal blood pressures now and states that he feels normal. He is on lisinopril, metoprolol, and his family members report that he is currently also taking hydrochlorothiazide. Additionally he is on tamsulosin which can lower his blood pressure. He takes tamsulosin at night but the others he takes in the morning. [facility] I did offer to recheck labs and imaging which the patient and family members declined. I did have discussion regarding matters of blood pressure management. It seems that his blood pressure may be going low when his medications reach their peak effect in the morning. The patient's daughters will have him follow up with his primary physician in this regard and will have the [facility] center that he resides at record blood pressures regularly throughout the day. Discharge Plan Discharge Clinical Impression: Episodic lightheadedness, Acute hypotension Patient Disposition: Home w/ Parent or Adult Condition: Improved Additional Instructions: Record blood pressures throughout the day and follow-up with primary physician for ongoing management of antihypertensive medications. Follow up with MD otherwise as needed or return if worsening. Prescriptions: No Action tamsulosin [Flomax] 0.4 mg capsule 0.8 mg PO HS finasteride 5 mg tablet 5 mg PO DAILY Rx Instructions: AM duloxetine [Cymbalta] 60 mg capsule,delayed release(DR/EC) 60 mg PO DAILY Rx Instructions: AM acetaminophen 500 mg capsule 500 mg PO Q8H PRN Patient Comments: Rx Instructions: PRN BID sennosides-docusate sodium [Stool Softener-Laxative] 8.6-50 mg Tablet 2 tab PO DAILY PRN (Reason: Constipation) Rx Instructions: PRN carboxymethylcellulose sodium [Refresh Plus] 0.5 % Dropperette 1 drp ophthalmic (eye) QID PRN Rx Instructions: PRN rosuvastatin 20 mg tablet 20 mg PO HS Rx Instructions: PM lisinopril 10 mg Tablet 10 mg PO DAILY Qty: 30 0RF Eliquis 5 mg tablet 5 mg PO BID metoprolol tartrate 25 mg tablet 25 mg PO DAILY ferrous gluconate 324 mg (37.5 mg iron) tablet 324 mg PO DAILY hydrochlorothiazide 12.5 mg tablet 12.5 mg PO DAILY pantoprazole 40 mg tablet,delayed release (DR/EC) 40 mg PO DAILY Follow Up/Referrals: César Celestin MD [Primary Care Provider] - Stand Alone Forms: [employer] Info Instructions
--- OUTSIDE RECORDS SUMMARY | 2024-04-18 13:52 | XMS_ITS | Continuity of Care Document ---
Author Name [facility] Organization [facility] Care Team Providers Care Visual Basic Programmer Name Role Phone [facility] Unavailable Unavailable Problems Combined list of problems from Department of Defense and [facility] Affairs facilities. It does not include entries that were removed or entered in error. Problem Status Onset Date Problem Type Date of Resolution Comments Source Benign prostatic hyperplasia Active Condition [facility] Depression (SCT [id number]) Active Condition [facility] Ex-smoker Active Condition [facility] Gastroesophageal reflux disease Active Condition May 24, 2023 Entered By: BRINA BIRMINGH[place] Comment: Also known hiatal hernia [facility] Hypertension (SNOMED CT 81025412) Active Condition [facility] Long-Term Current Use of Anticoagulant (SCT [id number]) Active Condition [facility] Lumbosacral Radiculopathy (SCT 9203969) Active Condition May 24, 2023 Entered By: BRINA BIRMINGHAM Comment: At one point neurosurgery was planning for L2-S1 fusion with L3-5 laminectomies but this was cancelled 10/2021.May 24, 2023 Entered By: BRINA BIRM[place] Comment: Has had improvement with duloxetine and use of Rollator [facility] Mild cognitive impairment Active Condition [facility] Morbid obesity Active Condition [facility] Nocturia Active Condition May 24 Entered By: BRINA BIRM[place] Comment: Has long history of this, and previously followed with urology, last seeing them 2022 Entered By: BRINA B[place] Comment: Prior UA has been normalMay 24, 2023 Entered By: BRINA B[place] Comment: Suspect largely driven by BPH +/- MEGHA [facility] Obstructive sleep apnea syndrome Active Condition May 24, 2023 Entered By: BRINA BIR[place] Comment: Suspected by pulm 2022, watchPAT pending [facility] Osteoarthritis of hip Active Condition May 24, 2023 Entered By: BRINA BIRM[place] Comment: was evaluated by ortho 09/2017 and deferred surgery given weight [facility] Paroxysmal Atrial Fibrillation (SCT [id number]) Active Condition May 24, 2023 Entered By: BRINA BIRM[place] Comment: Dx 04/2023 following CVA 2022 Entered By: BRINA BIRM[place] Comment: Started apixaban 05/2023 [facility] Pulmonary hypertension Active Condition December 19, 2023 Entered By: BRINA BIRM[place] Comment: Moderately increased estimated PAP by tricuspid regurgitation velocity and right atrial pressure (48 mmHg plus RAP) per [facility] TTE 01/2023 [facility] Stroke Active Condition May 24 Entered By: BRINA BIRM[place] Comment: 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 Entered By: BRINA B[place] Comment: W/u revealed atrial fibrillation [facility] Venous insufficiency of leg Active Condition December 18, 2023 Entered By: BRINA BIRM[place] Comment: per 05/2023 [facility] Diagnosis: ICD-10-CM R53.1 Weakness Active Diagnosis [facility] Diagnosis: ICD-10-CM Z46.1 Encounter for fitting and adjustment of hearing aid Active Diagnosis [facility] Diagnosis: ICD-10-CM I10 Essential (primary) hypertension Active Diagnosis [facility] Diagnosis: ICD-10-CM Z79.01 shelter (current) use of anticoagulants Active Diagnosis [facility] Diagnosis: ICD-10-CM Z01.118 Encntr for exam of ears and hearing w oth abnormal findings Active Diagnosis [facility] Diagnosis: ICD-10-CM Z71.9 Counseling, unspecified Active Diagnosis [facility] Diagnosis: ICD-10-CM Z13.6 Encounter for screening for cardiovascular disorders Active Diagnosis [facility] Diagnosis: ICD-10-CM I48.91 Unspecified atrial fibrillation Active Diagnosis [facility] Diagnosis: ICD-10-CM I48.0 Paroxysmal atrial fibrillation Active Diagnosis [facility] Diagnosis: ICD-10-CM I67.9 Cerebrovascular disease, unspecified Active Diagnosis [facility] Diagnosis: ICD-10-CM G47.33 Obstructive sleep apnea (adult) (pediatric) Active Diagnosis [facility] Diagnosis: ICD-10-CM R35.1 Nocturia Active Diagnosis [facility] Medications Combined list of outpatient medications from [...] DAY NEEDED FOR PAIN FOR PAIN Apr 08, 2024 600 Apr 09, 2025 [id number] A Apr 10, 2024 BR[facility] [facility] ORAL ACTIVE 04/09/2025 [id number] BRINA B[place]AM 2023 600 [place] [facility] ACETAMINOPH EN 500MG TAB ACETAMIN OPHEN 500MG TAB Disconti nued TAKE TWO TABLETS BY MOUTH TWICE A DAY AND TAKE TWO TABLETS EVERY DAY NEEDED FOR PAIN FOR PAIN Apr 03, 2023 600 Apr 03, 2024 [id number] November 20, 2023 BRINA B[place] [facility] ORAL DISCONT INUED 04/03/2024 [id number] BRINA BIRMINGHAM 2022 600 [facility] AMLODIPINE BESYLATE 5MG TAB AMLODIPI NE BESYLATE 5MG TAB Disconti nued TAKE ONE TABLET BY MOUTH EVERY DAY FOR BLOOD PRESSURE Apr 03, 2023 90 Apr 03, 2024 [id number] A Nov 09, 2023 BRINA B[place] [facility] ORAL DISCONT INUED BY PROVIDE R 04/03/2024 [id number] BRINA B[place]AM 2022 90 [facility] APIXABAN 5MG TAB APIXABAN 5MG TAB Active TAKE ONE TABLET BY MOUTH EVERY 12 HOURS TO PREVENT STROKES TO PREVENT STROKES Jun 03, 2023 60 Jun 03, 2024 [id number] A Mar 31, 2024 POEPPING ,JACOB L [facility] ORAL ACTIVE 06/03/2024 [id number] POEPPING, JACOB L 2022 60 [place] [facility] APIXABAN 5MG TAB APIXABAN 5MG TAB Disconti nued TAKE ONE TABLET BY MOUTH EVERY 12 HOURS TO PREVENT STROKES TO PREVENT STROKES May 24, 2023 60 Jun 23, 2023 [id number] May 24, 2023 BRINA B[place] [facility] ORAL DISCONT INUED 06/23/2023 [id number] BRINA BIRMINGHAM 2022 60 [facility] ASPIRIN 81MG TAB,CHEWABL E ASPIRIN 81MG TAB,CHEW ABLE Disconti nued CHEW ONE TABLET BY MOUTH EVERY DAY TO PREVENT BLOOD CLOTS TO PREVENT BLOOD CLOTS Apr 03, 2023 108 Apr 03, 2024 [id number] Apr 04, 2023 BRINA B[place] [facility] ORAL DISCONT INUED 04/03/2024 [id number] BRINA BIRMINGHAM 2022 108 [facility] BISACODYL 5MG TAB,EC BISACODY L 5MG TAB,EC TAKE TWO TABLETS BY MOUTH ONCE FOR COLON PREP FOR COLON PREP Dec 23, 2023 2 Jan 22, 2024 [id number] Dec 24, 2023 KIRA MANCIA H [facility] ORAL 01/22/2024 [id number] JUAN FRANCISCO MANCIAA H 2023 2 [facility] CARBOXYMETH YLCELLULOSE NA 0.5% SOLN,OPH CARBOXYM ETHYLCEL LULOSE NA 0.5% SOLN,OPH INSTILL 1 DROP IN BOTH EYES FOUR TIMES A DAY NEEDED FOR DRY EYES FOR DRY EYES Apr 03, 2023 15 Apr 03, 2024 [id number] Apr 04, 2023 BRINA BIRM[place] [facility] OPHTHA LMIC 04/03/2024 [id number] BRINA BIRMING[place]AM 2022 15 [facility] DULOXETINE HCL 60MG CAP,EC DULOXETI NE HCL 60MG CAP,EC TAKE ONE CAPSULE BY MOUTH EVERY DAY REPLAC ES CITALOPR AM PRESCRIP TION Apr 03, 2023 90 Apr 03, 2024 [id number] C Jan 29, 2024 BRINA B[place] [facility] ORAL 04/03/2024 [id number] BRINA BIRM[place]AM 2022 90 [facility] FERROUS GLUCONATE 324MG TAB FERROUS GLUCONAT E 324MG TAB Active TAKE ONE TABLET BY MOUTH EVERY OTHER DAY FOR ANEMIA FOR ANEMIA December 19, 2023 100 December 19, 2024 [id number] Mar 11, 2024 [place] [facility] ORAL ACTIVE 12/19/2024 [id number] BRINA B[place] 2023 100 [place] [facility] FINASTERIDE 5MG TAB FINASTER MARY 5MG TAB Active TAKE ONE TABLET BY MOUTH EVERY DAY FOR PROSTATE Mar 11, 2024 90 Mar 13, 2025 [id number] F Apr 05, 2024 BRINA [place] [facility] OR[facility]IVE 03/13/2025 [id number] BRINA B[place] 2023 90 [place] [facility] FINASTERIDE 5MG TAB FINASTER MARY 5MG TAB Disconti nued TAKE ONE TABLET BY MOUTH EVERY DAY FOR PROSTATE Apr 03, 2023 90 Apr 03, 2024 [id number] E Jan 16, 2024 BRINA [place] [facility] ORAL DISCONT INUED 04/03/2024 [id number] BRINA BIRM[place]AM 2022 90 [place] [facility] HYDROCHLORO THIAZIDE 12.5MG TAB HYDROCHL OROTHIAZ MARY 12.5MG TAB Active: Susp TAKE ONE TABLET BY MOUTH EVERY DAY FOR BLOOD PRESSURE FOR BLOOD PRESSURE December 19, 2023 60 December 19, 2024 [id number] Jun 07, 2024 BRINA [place] [facility] ORAL SUSPEND ED 12/19/2024 [id number] BRINA BIRM[place]AM 2023 60 [place] [facility] LIDOCAINE 5% PATCH LIDOCAIN E 5% PATCH Active APPLY 1 PATCH TOPICALL Y EVERY DAY FOR UP TO 12 HOURS FOR PAIN FOR UP TO 12 HOURS FOR PAIN Jun 06, 2023 30 Jun 06, 2024 [id number] 2023 BRINA [place] [facility] TOPICA L ACTIVE 06/06/2024 [id number] BRINA BIRM[place]AM 2022 30 [place] [facility] LISINOPRIL 10MG TAB LISINOPR IL 10MG TAB Active: Susp TAKE ONE TABLET BY MOUTH EVERY DAY FOR BLOOD PRESSURE FOR BLOOD PRESSURE Jan 16, 2024 90 Jan 17, 2025 [id number] A Jun 07, 2024 BRINA [place] [facility] ORAL SUSPEND ED 01/17/2025 [id number] BRINA B[place] 2023 90 [place] [facility] LISINOPRIL 10MG TAB LISINOPR IL 10MG TAB Disconti nued TAKE ONE TABLET BY MOUTH EVERY DAY FOR BLOOD PRESSURE FOR BLOOD PRESSURE Apr 03, 2023 90 Apr 03, 2024 [id number] December 20, 2023 BRINA [place] [facility] ORAL DISCONT INUED 04/03/2024 [id number] RBINA BIRM[place]AM 2022 90 [place] [facility] METOPROLOL TARTRATE 25MG TAB METOPROL OL TARTRATE 25MG TAB Active: On Hold TAKE ONE TABLET BY MOUTH TWICE A DAY FOR BLOOD PRESSURE FOR BLOOD PRESSURE Feb 19, 2024 180 May 19, 2024 [id number] C DOROTEO RODRIGEZ [facility] ORAL HOLD 05/19/2024 [id number] DOROTEO RODRIGEZ 2023 180 [place] [facility] METOPROLOL TARTRATE 25MG TAB METOPROL OL TARTRATE 25MG TAB Disconti nued TAKE ONE TABLET BY MOUTH TWICE A DAY FOR BLOOD PRESSURE FOR BLOOD PRESSURE November 20, 2023 180 Feb 18, 2024 [id number] B Feb 03, 2024 DOROTEO RODRIGEZ [facility] ORAL DISCONT INUED 02/18/2024 [id number] DOROTEO RODRIGEZ 2023 180 [place] [facility] METOPROLOL TARTRATE 25MG TAB METOPROL OL TARTRATE 25MG TAB Disconti nued TAKE ONE TABLET BY MOUTH TWICE A DAY FOR BLOOD PRESSURE FOR BLOOD PRESSURE Nov 13, 2023 180 Feb 12, 2024 [id number] A Nov 15, 2023 DOROTEO RODRIGEZ [facility] ORAL DISCONT INUED 02/12/2024 [id number] DOROTEO RODRIGEZ 2023 180 [place] [facility] METOPROLOL TARTRATE 25MG TAB METOPROL OL TARTRATE 25MG TAB Disconti nued TAKE ONE TABLET BY MOUTH TWICE A DAY FOR BLOOD PRESSURE FOR BLOOD PRESSURE Jun 03, 2023 180 Sep 01, 2023 [id number] Jun 03, 2023 DOROTEO RODRIGEZ [facility] ORAL DISCONT INUED 09/01/2023 [id number] DOROTEO RODRIGEZ 2022 180 [facility] METOPROLOL TARTRATE 25MG TAB METOPROL OL TARTRATE 25MG TAB Disconti nued TAKE ONE TABLET BY MOUTH TWICE A DAY FOR CHEST PAIN FOR CHEST PAIN May 30, 2023 180 Aug 28, 2023 [id number] May 30, 2023 DOROTEO RODRIGEZ [facility] ORAL DISCONT INUED (EDIT) 08/28/2023 [id number] DOROTEO RODRIGEZ 2022 180 [facility] MIRABEGRON 25MG TAB,SA MIRABEGR ON 25MG TAB,SA Disconti nued TAKE ONE TABLET BY MOUTH EVERY DAY Nov 08, 2022 30 Nov 09, 2023 [id number] A Feb 27, 2023 BRINA B[place] [facility] ORAL DISCONT INUED 11/09/2023 [id number] BRINA BIRM[place]AM 2022 30 [facility] MULTIVIT/OP HTH AREDS2/LUTE IN/ZEAXANTH IN CAP/TAB MULTIVIT /OPHTH AREDS2/L UTEIN/ZE AXANTHIN CAP/TAB Active TAKE 1 CAP/TAB BY MOUTH TWICE A DAY FOR EYE HEALTH FOR EYE HEALTH Sep 20, 2023 240 Sep 20, 2024 [id number] Apr 16, 2024 BRINA B[place] [facility] ORAL ACTIVE 09/20/2024 [id number] BRINA BIRM[place]AM 2023 240 [facility] MUPIROCIN 2% OINT,TOP MUPIROCI N 2% OINT,TOP Disconti nued APPLY THIN LAYER TOPICALL Y TWICE A DAY FOR INFECTIO N FOR INFECTIO N Apr 04, 2023 22 Apr 04, 2024 [id number] Apr 05, 2023 [place] [facility] TOPICA L DISCONT INUED 04/04/2024 [id number] BRINA B[place]AM 2022 22 [place] [facility] PANTOPRAZOL E NA 40MG TAB,EC PANTOPRA ZOLE NA 40MG TAB,EC Active TAKE ONE TABLET BY MOUTH EVERY EVENING TO DECREASE STOMACH ACID -TAKE ON AN EMPTY STOMACH, AT LEAST ONE-HALF HOUR BEFORE EATING Mar 05, 2024 90 Mar 07, 2025 [id number] J Apr 29, 2024 BRINA [place] [facility] ORAL ACTIVE 03/07/2025 [id number] BRINA B[place] 2023 90 [place] [facility] PANTOPRAZOL E NA 40MG TAB,EC PANTOPRA ZOLE NA 40MG TAB,EC Disconti nued TAKE ONE TABLET BY MOUTH EVERY EVENING TO DECREASE STOMACH ACID -TAKE ON AN EMPTY STOMACH, AT LEAST ONE-HALF HOUR BEFORE EATING Apr 03, 2023 90 Apr 03, 2024 [id number] I Feb 09, 2024 BRINA [place] [facility] ORAL DISCONT INUED 04/03/2024 [id number] BRINA B[place] 2022 90 [place] [facility] PANTOPRAZOL E NA 40MG TAB,EC PANTOPRA ZOLE NA 40MG TAB,EC Disconti nued TAKE ONE TABLET BY MOUTH EVERY EVENING TO DECREASE STOMACH ACID -TAKE ON AN EMPTY STOMACH, AT LEAST ONE-HALF HOUR BEFORE EATING Nov 08, 2022 90 Nov 09, 2023 [id number] H Jan 24, 2023 BRINA [place] [facility] ORAL DISCONT INUED 11/09/2023 [id number] BRINA B[place] 2022 90 [place] [facility] PEG-3350/EL ECTROLYTES PWDR PEG-3350 /ELECTRO LYTES PWDR TAKE ONE CONTAINE R BY MOUTH DIRECTED FOR COLON PREP FOR COLON PREP Dec 23, 2023 1 Jan 22, 2024 [id number] Dec 24, 2023 GAVINOKIRA YRIS Ybarra [place] [facility] ORAL 01/22/2024 [id number] GAVINOJUAN FRANCISCO OROSCO H 2023 1 [place] [facility] ROSUVASTATI N CA 20MG TAB ROSUVAST ATIN CA 20MG TAB Active: Susp TAKE ONE TABLET BY MOUTH EVERY DAY FOR CHOLESTE ROL FOR CHOLESTE ROL December 19, 2023 90 December 19, 2024 [id number] A Jun 07, 2024 BRINA [place] [facility] ORAL SUSPEND ED 12/19/2024 [id number] BRINA B[place] 2023 90 [place] [facility] ROSUVASTATI N CA 20MG TAB ROSUVAST ATIN CA 20MG TAB Disconti nued TAKE ONE TABLET BY MOUTH EVERY DAY FOR CHOLESTE ROL FOR CHOLESTE ROL Apr 03, 2023 90 Apr 03, 2024 [id number] December 20, 2023 BRINA [place] [facility] ORAL DISCONT INUED 04/03/2024 [id number] BRINA B[place] 2022 90 [facility] SENNOSIDES 8.6MG TAB SENNOSID ES 8.6MG TAB TAKE ONE TABLET BY MOUTH EVERY DAY AND TAKE ONE TABLET EVERY DAY NEEDED FOR CONSTIPA TION FOR CONSTIPA TION Apr 03, 2023 200 Apr 03, 2024 [id number] Jan 29, 2024 BRINA [place] [facility] ORAL 04/03/2024 [id number] BRINA BIRM[place]AM 2022 200 [facility] SODIUM CHLORIDE 0.9% (PF) INJ,SYRINGE ,10ML SODIUM CHLORIDE 0.9% (PF) INJ,SYRI NGE,10ML Disconti nued INJECT 10 ML TOPICALL Y DIRECTED FOR WOUND CLEANSIN G SKIN TEAR Apr 23, 2023 30 May 23, 2023 [id number] Apr 23, 2023 BRINA [place] [facility] TOPICA L DISCONT INUED 05/23/2023 [id number] BRINA BIRMINGHAM 2022 30 [facility] SODIUM CHLORIDE 0.9% (PF) INJ,SYRINGE ,10ML SODIUM CHLORIDE 0.9% (PF) INJ,SYRI NGE,10ML INJECT 10 ML TOPICALL Y DIRECTED FOR WOUND CLEANSIN G SKIN TEAR May 02, 2023 30 Jun 01, 2023 [id number] May 03, 2023 BRINA B[place] [facility] TOPICA L 06/01/2023 [id number] VINNIETERRY CHAMPIONO B 2022 30 [facility] TAMSULOSIN HCL 0.4MG CAP TAMSULOS IN HCL 0.4MG CAP Active TAKE TWO CAPSULES BY MOUTH AT BEDTIME Apr 08, 2024 180 Apr 09, 2025 [id number] E Apr 10, 2024 BRINA B[place] [facility] ORAL ACTIVE 04/09/2025 [id number] BRINA B[place]AM 2023 180 [facility] TAMSULOSIN HCL 0.4MG CAP TAMSULOS IN HCL 0.4MG CAP Disconti nued TAKE TWO CAPSULES BY MOUTH AT BEDTIME Apr 03, 2023 180 Apr 03, 2024 [id number] D Jan 16, 2024 BRINA B[place] [facility] ORAL DISCONT INUED 04/03/2024 [id number] BRINA BIRMINGHAM 2022 180 [facility] Allergies, Adverse Reactions, Alerts Combined list of allergies from Department of Defense and Veterans Affairs facilities. It does not include entries that were removed or entered in error. Substance Category Reaction Severity Reaction type Status Date Reported Comments Source MORPHINE Propensity to adverse reactions to drug (finding) Disorient ated, Mood swings active 1 [facility] Immunizations Combined list of available immunizations from the Department of Defense and Veterans Affairs facilities. Immunization Series Date Given Administered By Site Reaction Lot Number CVX Code Drug Fringe Maker Status Comments Source INFLUENZA VACCINE, QUADRIVALENT, ADJUVANTED 2022 205 complet ed [facility] INFLUENZA, UNSPECIFIED FORMULATION 2022 88 complet ed [facility] TDAP 2022 CHETAN ALANIS LEFT DELTO ID [id number] 115 complet ed [facility] COVID-19 ([employer]), MRNA, LNP-S, BIVALENT, PF, 30 MCG/0.3 ML DOSE 2021 300 complet ed [facility] INFLUENZA VACCINE, QUADRIVALENT, ADJUVANTED 2021 205 complet ed [facility] COVID-19 ([employer]), MRNA, LNP-S, PF, 30 MCG/0.3 ML DOSE, LUANA-SUCROSE (AGES 12+ YEARS) 2021 217 complet ed [facility] COVID-19 ([employer]), MRNA, LNP-S, PF, 30 MCG/0.3 ML DOSE 2020 208 complet ed [facility] INFLUENZA, HIGH-DOSE, QUADRIVALENT 2020 197 complet ed [facility] COVID-19 ([employer]), MRNA, LNP-S, PF, 30 MCG/0.3 ML DOSE 2 2020 208 complet ed PFR; [id number]; 1 [facility] COVID-19 ([employer]), MRNA, LNP-S, PF, 30 MCG/0.3 ML DOSE 1 2020 208 complet ed PFR; [id number]; 1 [facility] INFLUENZA, RECOMBINANT, QUADRIVALENT, INJECTABLE, PRESERVATIVE FREE 2019 185 complet [facility] INFLUENZA, UNSPECIFIED FORMULATION 2019 88 complet [facility] INFLUENZA, RECOMBINANT, QUADRIVALENT, INJECTABLE, PRESERVATIVE FREE 2018 185 complet [facility] INFLUENZA, HIGH DOSE SEASONAL 2018 135 complet [facility] ZOSTER RECOMBINANT 2 2018 187 complet [facility] ZOSTER RECOMBINANT 1 2018 187 complet [facility] INFLUENZA, TRIVALENT, ADJUVANTED 2017 168 complet [facility] INFLUENZA, SEASONAL, INJECTABLE 2017 141 complet [facility] INFLUENZA, HIGH DOSE SEASONAL 2016 135 complet ed [facility] PNEUMOCOCCAL CONJUGATE PCV 13 2016 133 complet ed [facility] INFLUENZA, HIGH DOSE SEASONAL 2016 135 complet ed [facility] INFLUENZA, HIGH DOSE SEASONAL 2015 135 complet ed [facility] INFLUENZA, SEASONAL, INJECTABLE 2015 141 complet ed [facility] INFLUENZA, SEASONAL, INJECTABLE 2014 141 complet ed [facility] PNEUMOCOCCAL CONJUGATE PCV 13 2014 133 complet ed [id number]/ [facility] INFLUENZA, SEASONAL, INJECTABLE 2013 141 complet ed [facility] INFLUENZA, UNSPECIFIED FORMULATION 2012 88 complet ed [facility] TDAP 2012 115 complet ed [employer] hkline;ac [id number]; 5 [facility] INFLUENZA, UNSPECIFIED FORMULATION 2011 88 complet ed [facility] INFLUENZA, SEASONAL, INJECTABLE 2011 141 complet ed [facility] ZOSTER LIVE 2011 121 complet ed 000 [facility] INFLUENZA, UNSPECIFIED FORMULATION 2010 88 complet ed per pt [facility] INFLUENZA, SEASONAL, INJECTABLE, PRESERVATIVE FREE 2009 140 complet ed [facility] INFLUENZA, SEASONAL, INJECTABLE, PRESERVATIVE FREE 2009 140 complet ed [facility] INFLUENZA, UNSPECIFIED FORMULATION 2009 88 complet ed [facility] NOVEL INFLUENZA-H1N 1-09, ALL FORMULATIONS 2009 128 complet ed [employer] [facility] INFLUENZA, UNSPECIFIED FORMULATION 2008 88 complet ed [facility] INFLUENZA, UNSPECIFIED FORMULATION 2007 88 complet ed [facility] INFLUENZA (HISTORICAL) 2006 88 complet ed [facility] INFLUENZA, SEASONAL, INJECTABLE 2005 141 complet ed [facility] INFLUENZA (HISTORICAL) 2005 88 complet ed [facility] PNEUMOCOCCAL, UNSPECIFIED FORMULATION 2005 109 complet ed [facility] INFLUENZA, UNSPECIFIED FORMULATION 2004 88 complet ed [facility] INFLUENZA, UNSPECIFIED FORMULATION 2003 88 complet ed [facility] TD(ADULT) UNSPECIFIED FORMULATION 2002 139 complet ed [facility] INFLUENZA, SEASONAL, INJECTABLE 2002 141 complet ed [facility] PNEUMOCOCCAL POLYSACCHARID E PPV23 2002 33 complet ed [facility] INFLUENZA (HISTORICAL) 2002 88 complet ed pt states he had a Influenza vaccinati on in 2002 [facility] TD (ADULT), 2 LF TETANUS TOXOID, PRESERVATIVE FREE, ADSORBED 2002 09 complet ed [facility] Results Combined list of recent chemistry, hematology and other laboratory results from Department of Defense and Veterans Affairs, ranging from 15 months to all on record, depending upon the facility. Order Name Results Value Reference Range Date Interpretation Specimen Comments Source URINALYS IS COLOR OF URINE LIGHT-YE LLOW 04/14 Specimen Type: URINE No comment entered. Ordering Provider: Jyothi VALDES Report Released Date/Time: Apr 14, 2024 12:22 PM Reporting Lab: [facility] [phone] Performing Lab: [facility] [address] [facility] URINALYS IS SPECIFIC GRAVITY OF URINE 1.014 1.003 - 1.035 04/14 Specimen Type: URINE No comment entered. Ordering Provider: Jyothi VALDES Report Released Date/Time: Apr 14, 2024 12:22 PM Reporting Lab: [facility] [phone] Performing Lab: [facility] [address] [facility] URINALYS IS BILIRUBIN. TOTAL [PRESENCE] IN URINE BY TEST STRIP NEGATIVE 04/14 Specimen Type: URINE No comment entered. Ordering Provider: Jyothi VALDES Report Released Date/Time: Apr 14, 2024 12:22 PM Reporting Lab: [facility] [phone] Performing Lab: [facility] [phone] [facility] URINALYS IS KETONES [MASS/VOLU ME] IN URINE BY TEST STRIP NEGATIVE 04/14 Specimen Type: URINE No comment entered. Ordering Provider: Jyothi VALDES Report Released Date/Time: Apr 14, 2024 12:22 PM Reporting Lab: [facility] [phone] Performing Lab: [facility] [id number] [place] [facility] URINALYS IS GLUCOSE [MASS/VOLU ME] IN URINE BY TEST STRIP NEGATIVE mg/dL 04/14 Specimen Type: URINE No comment entered. Ordering Provider: Jyothi VALDES Report Released Date/Time: Apr 14, 2024 12:22 PM Reporting Lab: [facility] [id number] Performing Lab: [facility] [phone] [place] [facility] URINALYS IS PROTEIN [MASS/VOLU ME] IN URINE BY TEST STRIP NEGATIVE mg/dL 04/14 Specimen Type: URINE No comment entered. Ordering Provider: Jyothi VALDES Report Released Date/Time: Apr 14, 2024 12:22 PM Reporting Lab: [facility] [phone] Performing Lab: [facility] [phone] [place] [facility] URINALYS IS PH OF URINE BY TEST STRIP 7.0 5.0 - 8.0 04/14 Specimen Type: URINE No comment entered. Ordering Provider: Jyothi VALDES Report Released Date/Time: Apr 14, 2024 12:22 PM Reporting Lab: [facility] [address] Performing Lab: [facility] [address] [place] [facility] URINALYS IS LEUKOCYTES [#/AREA] IN URINE SEDIMENT BY MICROSCOPY HIGH POWER FIELD NONE SEEN/[HP F] 0 - 7 04/14 Specimen Type: URINE No comment entered. Ordering Provider: Jyothi VALDES Report Released Date/Time: Apr 14, 2024 12:22 PM Reporting Lab: [facility] [address] Performing Lab: [facility] [address] [place] [facility] URINALYS IS BACTERIA [PRESENCE] IN URINE SEDIMENT BY LIGHT MICROSCOPY NONE SEEN 04/14 Specimen Type: URINE No comment entered. Ordering Provider: Jyothi VALDES Report Released Date/Time: Apr 14, 2024 12:22 PM Reporting Lab: [facility] [address] Performing Lab: [facility] [address] [place] [facility] URINALYS IS ERYTHROCYT ES [#/AREA] IN URINE SEDIMENT BY MICROSCOPY HIGH POWER FIELD 2 /[HPF] 0 - 3 04/14 Specimen Type: URINE No comment entered. Ordering Provider: Jyothi VALDES Report Released Date/Time: Apr 14, 2024 12:22 PM Reporting Lab: [facility] [address] Performing Lab: [facility] [address] [place] [facility] URINALYS IS APPEARANCE OF URINE CLEAR 04/14 Specimen Type: URINE No comment entered. Ordering Provider: Jyothi VALDES Report Released Date/Time: Apr 14, 2024 12:22 PM Reporting Lab: [facility] [address] Performing Lab: [facility] [address] [place] [facility] URINALYS IS EPITHELIAL CELLS.SQUA MOUS [#/AREA] IN URINE SEDIMENT BY MICROSCOPY HIGH POWER FIELD <1/[HPF] 04/14 Specimen Type: URINE No comment entered. Ordering Provider: Jyothi VALDES Report Released Date/Time: Apr 14, 2024 12:22 PM Reporting Lab: [facility] [address] Performing Lab: [facility] [address] [place] [facility] URINALYS IS HEMOGLOBIN [PRESENCE] IN URINE BY TEST STRIP NEGATIVE 04/14 Specimen Type: URINE No comment entered. Ordering Provider: Jyothi VALDES Report Released Date/Time: Apr 14, 2024 12:22 PM Reporting Lab: [facility] [address] Performing Lab: [facility] [address] [place] [facility] URINALYS IS NITRITE [PRESENCE] IN URINE BY TEST STRIP NEGATIVE 04/14 Specimen Type: URINE No comment entered. Ordering Provider: Jyothi VALDES Report Released Date/Time: Apr 14, 2024 12:22 PM Reporting Lab: [facility] [address] Performing Lab: [facility] [address] [place] [facility] URINALYS IS LEUKOCYTE ESTERASE [PRESENCE] IN URINE BY TEST STRIP NEGATIVE 04/14 Specimen Type: URINE No comment entered. Ordering Provider: Jyothi VALDES Report Released Date/Time: Apr 14, 2024 12:22 PM Reporting Lab: [facility] [address] Performing Lab: [facility] [address] [place] [facility] EXTRA BLUE TUBE EXTRA BLUE TUBE RECEIVED 04/14 Specimen Type: PLASMA No comment entered. Ordering Provider: Jyothi VALDES Report Released Date/Time: Apr 14, 2024 12:32 PM Reporting Lab: [facility] [address] Performing Lab: [facility] [address] [place] [facility] TROPONIN I, HS TROPONIN I.CARDIAC [MASS/VOLU ME] IN SERUM OR PLASMA 6 <35 - 35 04/14 Specimen Type: PLASMA No comment entered. Ordering Provider: Jyothi VALDES Report Released Date/Time: Apr 14, 2024 12:22 PM Reporting Lab: [facility] [address] Performing Lab: [facility] [address] [place] [facility] EXTRA GOLD GEL TUBE EXTRA GOLD GEL TUBE RECEIVED 04/14 Specimen Type: SERUM No comment entered. Ordering Provider: Jyothi VALDES Report Released Date/Time: Apr 14, 2024 12:32 PM Reporting Lab: [facility] [address] Performing Lab: [facility] [address] [place] [facility] BASIC METABOLI C PANEL+MG CREATININE [MASS/VOLU ME] IN SERUM OR PLASMA 0.8 mg/dL 0.7 - 1.2 04/14 Specimen Type: PLASMA No comment entered. Ordering Provider: Jyothi VALDES Report Released Date/Time: Apr 14, 2024 12:22 PM Reporting Lab: [facility] [address] Performing Lab: [facility] [address] [place] [facility] BASIC METABOLI C PANEL+MG UREA NITROGEN [MASS/VOLU ME] IN SERUM OR PLASMA 13 mg/dL 8 - 26 04/14 Specimen Type: PLASMA No comment entered. Ordering Provider: Jyothi VALDES Report Released Date/Time: Apr 14, 2024 12:22 PM Reporting Lab: [facility] [address] Performing Lab: [facility] [address] [place] [facility] BASIC METABOLI C PANEL+MG GLUCOSE [MASS/VOLU ME] IN SERUM OR PLASMA 89 mg/dL 70 - 100 04/14 Specimen Type: PLASMA No comment entered. Ordering Provider: Jyothi VALDES Report Released Date/Time: Apr 14, 2024 12:22 PM Reporting Lab: [facility] [address] Performing Lab: [facility] [address] [place] [facility] BASIC METABOLI C PANEL+MG SODIUM [MOLES/VOL UME] IN SERUM OR PLASMA 142 mmol/L 136 - 145 04/14 Specimen Type: PLASMA No comment entered. Ordering Provider: Jyothi VALDES Report Released Date/Time: Apr 14, 2024 12:22 PM Reporting Lab: [facility] [address] Performing Lab: [facility] [address] [place] [facility] BASIC METABOLI C PANEL+MG POTASSIUM [MOLES/VOL UME] IN SERUM OR PLASMA 4.1 mmol/L 3.5 - 5.1 04/14 Specimen Type: PLASMA No comment entered. Ordering Provider: Jyothi VALDES Report Released Date/Time: Apr 14, 2024 12:22 PM Reporting Lab: [facility] [address] Performing Lab: [facility] [address] [place] [facility] BASIC METABOLI C PANEL+MG CHLORIDE [MOLES/VOL UME] IN SERUM OR PLASMA 108 mmol/L 98 - 107 04/14 H Specimen Type: PLASMA No comment entered. Ordering Provider: Jyothi VALDES Report Released Date/Time: Apr 14, 2024 12:22 PM Reporting Lab: [facility] [address] Performing Lab: [facility] [address] [place] [facility] BASIC METABOLI C PANEL+MG CARBON DIOXIDE, TOTAL [MOLES/VOL UME] IN SERUM OR PLASMA 28 mmol/L 22 - 29 04/14 Specimen Type: PLASMA No comment entered. Ordering Provider: Jyothi VALDES Report Released Date/Time: Apr 14, 2024 12:22 PM Reporting Lab: [facility] [address] Performing Lab: [facility] [address] [place] [facility] BASIC METABOLI C PANEL+MG CALCIUM [MASS/VOLU ME] IN SERUM OR PLASMA 9.4 mg/dL 8.4 - 10.2 04/14 Specimen Type: PLASMA No comment entered. Ordering Provider: Jyothi VALDES Report Released Date/Time: Apr 14, 2024 12:22 PM Reporting Lab: [facility] [address] Performing Lab: [facility] [address] [place] [facility] BASIC METABOLI C PANEL+MG MAGNESIUM [MASS/VOLU ME] IN SERUM OR PLASMA 2.0 mg/dL 1.6 - 2.6 04/14 Specimen Type: PLASMA No comment entered. Ordering Provider: Jyothi VALDES Report Released Date/Time: Apr 14, 2024 12:22 PM Reporting Lab: [facility] [address] Performing Lab: [facility] [address] [place] [facility] BASIC METABOLI C PANEL+MG ANION GAP IN SERUM OR PLASMA 6 mmol/L 5 - 15 04/14 Specimen Type: PLASMA No comment entered. Ordering Provider: Jyothi VALDES Report Released Date/Time: Apr 14, 2024 12:22 PM Reporting Lab: [facility] [address] Performing Lab: [facility] [address] [place] [facility] BASIC METABOLI C PANEL+MG GLOMERULAR FILTRATION RATE/1.73 SQ M.PREDICTE D [VOLUME RATE/AREA] IN SERUM, PLASMA OR BLOOD BY CREATININE -BASED FORMULA (CKD-EPI 2020) 88 60 04/14 Specimen Type: PLASMA No comment entered. Ordering Provider: Jyothi VALDES Report Released Date/Time: Apr 14, 2024 12:22 PM Reporting Lab: [facility] [address] Performing Lab: [facility] [address] [place] [facility] CBC & DIFF LEUKOCYTES [#/VOLUME] IN BLOOD BY AUTOMATED COUNT 8.3 4.0 - 11.0 04/14 Specimen Type: BLOOD Comment: Automated Differentia l Performed Ordering Provider: Jyothi VALDES Report Released Date/Time: Apr 14, 2024 12:22 PM Reporting Lab: [facility] [address] Performing Lab: [facility] [address] [place] [facility] CBC & DIFF ERYTHROCYT ES [#/VOLUME] IN BLOOD BY AUTOMATED COUNT 4.76 4.60 - 6.20 04/14 Specimen Type: BLOOD Comment: Automated Differentia l Performed Ordering Provider: Jyothi VALDES Report Released Date/Time: Apr 14, 2024 12:22 PM Reporting Lab: [facility] [address] Performing Lab: [facility] [address] [place] [facility] CBC & DIFF HEMOGLOBIN [MASS/VOLU ME] IN BLOOD 12.1 g/dL 13.5 - 17.9 04/14 L Specimen Type: BLOOD Comment: Automated Differentia l Performed Ordering Provider: Jyothi VALDES Report Released Date/Time: Apr 14, 2024 12:22 PM Reporting Lab: [facility] [address] Performing Lab: [facility] [address] [place] [facility] CBC & DIFF HEMATOCRIT [VOLUME FRACTION] OF BLOOD BY AUTOMATED COUNT 38.7 41 - 54 04/14 L Specimen Type: BLOOD Comment: Automated Differentia l Performed Ordering Provider: Jyothi VALDES Report Released Date/Time: Apr 14, 2024 12:22 PM Reporting Lab: [facility] [address] Performing Lab: [facility] [address] [place] [facility] CBC & DIFF MCV [ENTITIC VOLUME] BY AUTOMATED COUNT 81.3 fL 80 - 100 04/14 Specimen Type: BLOOD Comment: Automated Differentia l Performed Ordering Provider: Jyothi VALDES Report Released Date/Time: Apr 14, 2024 12:22 PM Reporting Lab: [facility] [address] Performing Lab: [facility] [address] [place] [facility] CBC & DIFF MCH [ENTITIC MASS] BY AUTOMATED COUNT 25.4 pg 27 - 33 04/14 L Specimen Type: BLOOD Comment: Automated Differentia l Performed Ordering Provider: Jyothi VALDES Report Released Date/Time: Apr 14, 2024 12:22 PM Reporting Lab: [facility] [address] Performing Lab: [facility] [address] [place] [facility] CBC & DIFF MCHC [MASS/VOLU ME] BY AUTOMATED COUNT 31.3 g/dL 32.0 - 37.5 04/14 L Specimen Type: BLOOD Comment: Automated Differentia l Performed Ordering Provider: Jyothi VALDES Report Released Date/Time: Apr 14, 2024 12:22 PM Reporting Lab: [facility] [address] Performing Lab: [facility] [address] [place] [facility] CBC & DIFF PLATELETS [#/VOLUME] IN BLOOD BY AUTOMATED COUNT 189 150 - 400 04/14 Specimen Type: BLOOD Comment: Automated Differentia l Performed Ordering Provider: Jyothi VALDES Report Released Date/Time: Apr 14, 2024 12:22 PM Reporting Lab: [facility] [address] Performing Lab: [facility] [address] [place] [facility] CBC & DIFF PLATELET MEAN VOLUME [ENTITIC VOLUME] IN BLOOD BY AUTOMATED COUNT 11.5 fL 9.1 - 13.0 04/14 Specimen Type: BLOOD Comment: Automated Differentia l Performed Ordering Provider: Jyothi VALDES Report Released Date/Time: Apr 14, 2024 12:22 PM Reporting Lab: [facility] [address] Performing Lab: [facility] [address] [place] [facility] CBC & DIFF NEUTROPHIL S/100 LEUKOCYTES IN BLOOD BY MANUAL COUNT 72.9 40.0 - 80.0 04/14 Specimen Type: BLOOD Comment: Automated Differentia l Performed Ordering Provider: Jyothi VALDES Report Released Date/Time: Apr 14, 2024 12:22 PM Reporting Lab: [facility] [address] Performing Lab: [facility] [address] [place] [facility] CBC & DIFF LYMPHOCYTE S/100 LEUKOCYTES IN BLOOD BY MANUAL COUNT 14.5 15.0 - 45.0 04/14 L Specimen Type: BLOOD Comment: Automated Differentia l Performed Ordering Provider: Jyothi VALDES Report Released Date/Time: Apr 14, 2024 12:22 PM Reporting Lab: [facility] [address] Performing Lab: [facility] [address] [place] [facility] CBC & DIFF MONOCYTES/ 100 LEUKOCYTES IN BLOOD BY AUTOMATED COUNT 9.9 2.0 - 12.0 04/14 Specimen Type: BLOOD Comment: Automated Differentia l Performed Ordering Provider: Jyothi VALDES Report Released Date/Time: Apr 14, 2024 12:22 PM Reporting Lab: [facility] [address] Performing Lab: [facility] [address] [place] [facility] CBC & DIFF EOSINOPHIL S/100 LEUKOCYTES IN BLOOD BY AUTOMATED COUNT 1.8 0.0 - 6.0 04/14 Specimen Type: BLOOD Comment: Automated Differentia l Performed Ordering Provider: Jyothi VALDES Report Released Date/Time: Apr 14, 2024 12:22 PM Reporting Lab: [facility] [address] Performing Lab: [facility] [address] [place] [facility] CBC & DIFF BASOPHILS/ 100 LEUKOCYTES IN BLOOD BY MANUAL COUNT 0.5 0.0 - 2.0 04/14 Specimen Type: BLOOD Comment: Automated Differentia l Performed Ordering Provider: Jyothi VALDES Report Released Date/Time: Apr 14, 2024 12:22 PM Reporting Lab: [facility] [address] Performing Lab: [facility] [address] [place] [facility] CBC & DIFF ERYTHROCYT E DISTRIBUTI ON WIDTH [RATIO] BY AUTOMATED COUNT 15.1 11.5 - 14.5 04/14 H Specimen Type: BLOOD Comment: Automated Differentia l Performed Ordering Provider: Jyothi VALDES Report Released Date/Time: Apr 14, 2024 12:22 PM Reporting Lab: [facility] [address] Performing Lab: [facility] [address] [place] [facility] CBC & DIFF LYMPHOCYTE S [#/VOLUME] IN BLOOD BY AUTOMATED COUNT 1.2 1.0 - 4.0 04/14 Specimen Type: BLOOD Comment: Automated Differentia l Performed Ordering Provider: Jyothi VALDES Report Released Date/Time: Apr 14, 2024 12:22 PM Reporting Lab: [facility] [address] Performing Lab: [facility] [address] [place] [facility] CBC & DIFF MONOCYTES [#/VOLUME] IN BLOOD BY AUTOMATED COUNT 0.8 0.1 - 1.0 04/14 Specimen Type: BLOOD Comment: Automated Differentia l Performed Ordering Provider: Jyothi VALDES Report Released Date/Time: Apr 14, 2024 12:22 PM Reporting Lab: [facility] [address] Performing Lab: [facility] [address] [place] [facility] CBC & DIFF NEUTROPHIL S [#/VOLUME] IN BLOOD BY AUTOMATED COUNT 6.0 2.0 - 7.7 04/14 Specimen Type: BLOOD Comment: Automated Differentia l Performed Ordering Provider: Jyothi VALDES Report Released Date/Time: Apr 14, 2024 12:22 PM Reporting Lab: [facility] [address] Performing Lab: [facility] [address] [place] [facility] CBC & DIFF EOSINOPHIL S [#/VOLUME] IN BLOOD BY AUTOMATED COUNT 0.2 0 - 0.5 04/14 Specimen Type: BLOOD Comment: Automated Differentia l Performed Ordering Provider: Jyothi VALDES Report Released Date/Time: Apr 14, 2024 12:22 PM Reporting Lab: [facility] [address] Performing Lab: [facility] [address] [place] [facility] CBC & DIFF BASOPHILS [#/VOLUME] IN BLOOD BY AUTOMATED COUNT 0.0 0 - 0.2 04/14 Specimen Type: BLOOD Comment: Automated Differentia l Performed Ordering Provider: Jyothi VALDES Report Released Date/Time: Apr 14, 2024 12:22 PM Reporting Lab: [facility] [address] Performing Lab: [facility] [address] [place] [facility] CBC & DIFF IG(META,MY MATILDE,PRO) 0.4 04/14 Specimen Type: BLOOD Comment: Automated Differentia l Performed Ordering Provider: Jyothi VALDES Report Released Date/Time: Apr 14, 2024 12:22 PM Reporting Lab: [facility] [address] Performing Lab: [facility] [address] [place] [facility] CBC & DIFF IMMATURE GRANULOCYT ES [PRESENCE] IN BLOOD BY AUTOMATED COUNT 0.0 0 - 0.1 04/14 Specimen Type: BLOOD Comment: Automated Differentia l Performed Ordering Provider: Jyothi VALDES Report Released Date/Time: Apr 14, 2024 12:22 PM Reporting Lab: [facility] [address] Performing Lab: [facility] [address] [place] [facility] BASIC METABOLI C PANEL+MG CREATININE [MASS/VOLU ME] IN SERUM OR PLASMA 0.8 mg/dL 0.7 - 1.2 01/05 Specimen Type: PLASMA No comment entered. Ordering Provider: BRINA BIRMINGHAM Report Released Date/Time: December 19, 2023 12:41 PM Reporting Lab: [facility] [address] Performing Lab: [facility] [address] [place] [facility] BASIC METABOLI C PANEL+MG UREA NITROGEN [MASS/VOLU ME] IN SERUM OR PLASMA 13 mg/dL 8 - 26 01/05 Specimen Type: PLASMA No comment entered. Ordering Provider: BRINA BIRMINGHAM Report Released Date/Time: December 19, 2023 12:41 PM Reporting Lab: [facility] [address] Performing Lab: [facility] [address] [place] [facility] BASIC METABOLI C PANEL+MG GLUCOSE [MASS/VOLU ME] IN SERUM OR PLASMA 95 mg/dL 70 - 100 01/05 Specimen Type: PLASMA No comment entered. Ordering Provider: BRINA BIRMINGHAM Report Released Date/Time: December 19, 2023 12:41 PM Reporting Lab: [facility] [address] Performing Lab: [facility] [address] [place] [facility] BASIC METABOLI C PANEL+MG SODIUM [MOLES/VOL UME] IN SERUM OR PLASMA 141 mmol/L 136 - 145 01/05 Specimen Type: PLASMA No comment entered. Ordering Provider: BRINA BIRMINGHAM Report Released Date/Time: December 19, 2023 12:41 PM Reporting Lab: [facility] [address] Performing Lab: [facility] [address] [place] [facility] BASIC METABOLI C PANEL+MG POTASSIUM [MOLES/VOL UME] IN SERUM OR PLASMA 3.8 mmol/L 3.5 - 5.1 01/05 Specimen Type: PLASMA No comment entered. Ordering Provider: BRINA BIRMINGHAM Report Released Date/Time: December 19, 2023 12:41 PM Reporting Lab: [facility] [address] Performing Lab: [facility] [address] [place] [facility] BASIC METABOLI C PANEL+MG CHLORIDE [MOLES/VOL UME] IN SERUM OR PLASMA 107 mmol/L 98 - 107 01/05 Specimen Type: PLASMA No comment entered. Ordering Provider: BRINA BIRMINGHAM Report Released Date/Time: December 19, 2023 12:41 PM Reporting Lab: [facility] [address] Performing Lab: [facility] [address] [place] [facility] BASIC METABOLI C PANEL+MG CARBON DIOXIDE, TOTAL [MOLES/VOL UME] IN SERUM OR PLASMA 26 mmol/L 22 - 29 01/05 Specimen Type: PLASMA No comment entered. Ordering Provider: BRINA BIRMINGHAM Report Released Date/Time: December 19, 2023 12:41 PM Reporting Lab: [facility] [address] Performing Lab: [facility] [address] [place] [facility] BASIC METABOLI C PANEL+MG CALCIUM [MASS/VOLU ME] IN SERUM OR PLASMA 9.5 mg/dL 8.4 - 10.2 01/05 Specimen Type: PLASMA No comment entered. Ordering Provider: BRINA BIRMINGHAM Report Released Date/Time: December 19, 2023 12:41 PM Reporting Lab: [facility] [address] Performing Lab: [facility] [address] [place] [facility] BASIC METABOLI C PANEL+MG MAGNESIUM [MASS/VOLU ME] IN SERUM OR PLASMA 2.0 mg/dL 1.6 - 2.6 01/05 Specimen Type: PLASMA No comment entered. Ordering Provider: BRINA BIRMINGHAM Report Released Date/Time: December 19, 2023 12:41 PM Reporting Lab: [facility] [address] Performing Lab: [facility] [address] [place] [facility] BASIC METABOLI C PANEL+MG ANION GAP IN SERUM OR PLASMA 8 mmol/L 5 - 15 01/05 Specimen Type: PLASMA No comment entered. Ordering Provider: BRINA BIRMINGHAM Report Released Date/Time: December 19, 2023 12:41 PM Reporting Lab: [facility] [address] Performing Lab: [facility] [address] [place] [facility] BASIC METABOLI C PANEL+MG GLOMERULAR FILTRATION RATE/1.73 SQ M.PREDICTE D [VOLUME RATE/AREA] IN SERUM, PLASMA OR BLOOD BY CREATININE -BASED FORMULA (CKD-EPI 2020) 88 60 01/05 Specimen Type: PLASMA No comment entered. Ordering Provider: BRINA BIRMINGHAM Report Released Date/Time: December 19, 2023 12:41 PM Reporting Lab: [facility] [address] Performing Lab: [facility] [address] [facility] CBC LEUKOCYTES [#/VOLUME] IN BLOOD BY AUTOMATED COUNT 6.74 10*3/uL 4.0 - 11.0 12/18 Specimen Type: BLOOD No comment entered. Ordering Provider: BRINA BIRMINGHAM Report Released Date/Time: December 18, 2023 02:26 PM Reporting Lab: [facility] [address] Performing Lab: [facility] [address] [facility] CBC ERYTHROCYT ES [#/VOLUME] IN BLOOD BY AUTOMATED COUNT 4.45 10*6/uL 4.6 - 6.2 12/18 L Specimen Type: BLOOD No comment entered. Ordering Provider: BRINA BIRMINGHAM Report Released Date/Time: December 18, 2023 02:26 PM Reporting Lab: [facility] [address] Performing Lab: [facility] [address] [facility] CBC HEMOGLOBIN [MASS/VOLU ME] IN BLOOD 11.6 g/dL 13.5 - 17.9 12/18 L Specimen Type: BLOOD No comment entered. Ordering Provider: BRINA BIRMINGHAM Report Released Date/Time: December 18, 2023 02:26 PM Reporting Lab: [facility] [phone] Performing Lab: [facility] [phone] [facility] CBC HEMATOCRIT [VOLUME FRACTION] OF BLOOD BY AUTOMATED COUNT 36.7 41 - 54 12/18 L Specimen Type: BLOOD No comment entered. Ordering Provider: BRINA BIRMINGHAM Report Released Date/Time: December 18, 2023 02:26 PM Reporting Lab: [facility] [phone] Performing Lab: [facility] [phone] [place] [facility] CBC MCV [ENTITIC VOLUME] BY AUTOMATED COUNT 82.5 fL 80 - 100 12/18 Specimen Type: BLOOD No comment entered. Ordering Provider: BRINA BIRMINGHAM Report Released Date/Time: December 18, 2023 02:26 PM Reporting Lab: [facility] [phone] Performing Lab: [facility] [phone] [place] [facility] CBC MCH [ENTITIC MASS] BY AUTOMATED COUNT 26.1 pg 27 - 33 12/18 L Specimen Type: BLOOD No comment entered. Ordering Provider: BRINA BIRMINGHAM Report Released Date/Time: December 18, 2023 02:26 PM Reporting Lab: [facility] [phone] Performing Lab: [facility] [phone] [place] [facility] CBC MCHC [MASS/VOLU ME] BY AUTOMATED COUNT 31.6 g/dL 32.0 - 37.5 12/18 L Specimen Type: BLOOD No comment entered. Ordering Provider: BRINA BIRMINGHAM Report Released Date/Time: December 18, 2023 02:26 PM Reporting Lab: [facility] [phone] Performing Lab: [facility] [phone] [place] [facility] CBC PLATELETS [#/VOLUME] IN BLOOD BY AUTOMATED COUNT 188 10*3/uL 150 - 400 12/18 Specimen Type: BLOOD No comment entered. Ordering Provider: BRINA BIRMINGHAM Report Released Date/Time: December 18, 2023 02:26 PM Reporting Lab: [facility] [phone] Performing Lab: [facility] [address] [place] [facility] CBC PLATELET MEAN VOLUME [ENTITIC VOLUME] IN BLOOD BY AUTOMATED COUNT 11.1 fL 7.4 - 10.4 12/18 H Specimen Type: BLOOD No comment entered. Ordering Provider: BRINA BIRMINGHAM Report Released Date/Time: December 18, 2023 02:26 PM Reporting Lab: [facility] [address] Performing Lab: [facility] [address] [place] [facility] CBC ERYTHROCYT E DISTRIBUTI ON WIDTH [RATIO] BY AUTOMATED COUNT 13.4 11.5 - 14.5 12/18 Specimen Type: BLOOD No comment entered. Ordering Provider: BRINA BIRMINGHAM Report Released Date/Time: December 18, 2023 02:26 PM Reporting Lab: [facility] [address] Performing Lab: [facility] [address] [place] [facility] B 12 COBALAMIN (VITAMIN B12) [MASS/VOLU ME] IN SERUM OR PLASMA 304 pg/mL 213 - 816 12/18 Specimen Type: SERUM No comment entered. Ordering Provider: BRINA BIRMINGHAM Report Released Date/Time: December 18, 2023 02:26 PM Reporting Lab: [facility] [address] Performing Lab: [facility] [address] [place] [facility] LIPID PANEL,NO N-FASTIN G CHOLESTERO L [MASS/VOLU ME] IN SERUM OR PLASMA 109 mg/dL <199 - 199 12/18 Specimen Type: PLASMA No comment entered. Ordering Provider: BRINA BIRMINGHAM Report Released Date/Time: December 18, 2023 02:26 PM Reporting Lab: [facility] [address] Performing Lab: [facility] [address] [place] [facility] LIPID PANEL,NO N-FASTIN G CHOLESTERO L IN HDL [MASS/VOLU ME] IN SERUM OR PLASMA 43 mg/dL 40 12/18 Specimen Type: PLASMA No comment entered. Ordering Provider: BRINA BIRMINGHAM Report Released Date/Time: December 18, 2023 02:26 PM Reporting Lab: [facility] [address] Performing Lab: [facility] [address] [place] [facility] LIPID PANEL,NO N-FASTIN G CHOLESTERO L IN LDL [MASS/VOLU ME] IN SERUM OR PLASMA BY CALCULAESAUO N 45 mg/dL <99 - 99 12/18 Specimen Type: PLASMA No comment entered. Ordering Provider: BRINA BIRMINGHAM Report Released Date/Time: December 18, 2023 02:26 PM Reporting Lab: [facility] [address] Performing Lab: [facility] [address] [place] [facility] LIPID PANEL,NO N-FASTIN G CHOLESTERO L IN VLDL [MASS/VOLU ME] IN SERUM OR PLASMA BY CALCERINN N 21 mg/dL <29 - 29 12/18 Specimen Type: PLASMA No comment entered. Ordering Provider: BRINA BIRMINGHAM Report Released Date/Time: December 18, 2023 02:26 PM Reporting Lab: [facility] [address] Performing Lab: [facility] [address] [place] [facility] LIPID PANEL,NO N-FASTIN G CHOLESTERO L NON HDL [MASS/VOLU ME] IN SERUM OR PLASMA 66 mg/dL <129 - 129 12/18 Specimen Type: PLASMA No comment entered. Ordering Provider: BRINA BIRMINGHAM Report Released Date/Time: December 18, 2023 02:26 PM Reporting Lab: [facility] [address] Performing Lab: [facility] [address] [facility] LIPID PANEL,NO N-FASTIN G TRIGLYCERI DE [MASS/VOLU ME] IN SERUM OR PLASMA 107 mg/dL <149 - 149 12/18 Specimen Type: PLASMA No comment entered. Ordering Provider: BRINA BIRMINGHAM Report Released Date/Time: December 18, 2023 02:26 PM Reporting Lab: [facility] [address] Performing Lab: [facility] [address] [facility] Vital Signs Combined list of inpatient and outpatient Vital Signs from Department of Defense and Veterans Affairs, ranging from 12 months to all on record, depending upon the facility. Vital Sign Value Date Comments Source SYSTOLIC BLOOD PRESSURE 171 04/14/2024 12:02:00 [facility] DIASTOLIC BLOOD PRESSURE 72 04/14/2024 12:02:00 [facility] PULSE OXIMETRY 94 04/14/2024 12:02:00 [place] [facility] PAIN 0 04/14/2024 12:02:00 [facility] [facility] TEMPERATURE 97.4 04/14/2024 12:02:00 [facility] PULSE 61 04/14/2024 12:02:00 [facility] RESPIRATION 16 04/14/2024 12:02:00 [facility] SYSTOLIC BLOOD PRESSURE 143 12/19/2023 10:04:12 [facility] DIASTOLIC BLOOD PRESSURE 75 12/19/2023 10:04:12 [facility] PULSE OXIMETRY 92 12/19/2023 10:04:12 [facility] WEIGHT 290.5 12/19/2023 10:04:12 [facility] BMI 40kg/m2 12/19/2023 10:04:12 [facility] PAIN 0 12/19/2023 10:04:12 [facility] TEMPERATURE 97.2 12/19/2023 10:04:12 [facility] PULSE 58 12/19/2023 10:04:12 [facility] RESPIRATION 16 12/19/2023 10:04:12 [facility] SYSTOLIC BLOOD PRESSURE 133 05/14/2023 14:22:27 [facility] DIASTOLIC BLOOD PRESSURE 70 05/14/2023 14:22:27 [facility] PULSE OXIMETRY 96% 05/14/2023 14:22:27 [facility] PAIN 0 05/14/2023 14:22:27 [facility] TEMPERATURE 97.9 05/14/2023 14:22:27 [facility] PULSE 66 05/14/2023 14:22:27 [facility] RESPIRATION 18 05/14/2023 14:22:27 [facility] SYSTOLIC BLOOD PRESSURE 132 04/23/2023 13:10:55 [facility] DIASTOLIC BLOOD PRESSURE 75 04/23/2023 13:10:55 [facility] PULSE OXIMETRY 92% 04/23/2023 13:10:55 [facility] WEIGHT 272.2 04/23/2023 13:10:55 [facility] BMI 38kg/m2 04/23/2023 13:10:55 [facility] PAIN 0 04/23/2023 13:10:55 [facility] TEMPERATURE 98 04/23/2023 13:10:55 [facility] PULSE 75 04/23/2023 13:10:55 [place] [facility] RESPIRATION 18 04/23/2023 13:10:[address] [facility] Encounters Combined list of: 1) Encounters from Department of Veterans Affairs facilities going back up to thelast 18 months. 2) Encounters from the Department of Defense facilities going back up to 280 months. Location Location Details Encounter Type Encounter Number Reason For Visit Attending Provider ADM Date DC Date Status Disposition Source [place] [facility] OFFICE O/P EST HI 40-54 MIN [id number] Diagnos is: ICD-10- CM R35.1 Nocturi a
BRINA BIRMINGHAM 11/08 [facility] [place] [facility] OFF/OP CNSLTJ NEW/EST MOD 40 [id number] Diagnos is: ICD-10- CM G47.33 Obstruc tive sleep apnea (adult) ([facility])
Pita ANGEL 12/27 [facility] [place] [facility] Outpatient Encounter [id number] 12/27 [facility] [place] [facility] Outpatient Encounter [id number] DAVID HASNEN 02/15 [place] [facility] [place] [facility] Outpatient Encounter [id number] DAVID HANSEN 02/20 [place] [facility] [place] [facility] Outpatient Encounter [id number] 02/25 [place] [facility] [place] [facility] Outpatient Encounter [id number] SHERI BERTRAND 03/13 [place] [facility] [place] [facility] Outpatient Encounter [id number] 03/18 [place] [facility] [place] [facility] Outpatient Encounter [id number] 03/20 [place] [facility] [place] [facility] Outpatient Encounter [id number] 03/28 [place] [facility] [place] [facility] Outpatient Encounter [id number] 04/01 [place] [facility] [place] [facility] Outpatient Encounter [id number] 04/04 [place] [facility] [place] [facility] Outpatient Encounter [id number] VIRIDIANA DUPREE 04/11 [place] [facility] [place] [facility] Outpatient Encounter [id number] 04/17 [place] [facility] [place] [facility] Outpatient Encounter [id number] 04/17 [facility] [place] [facility] OFFICE O/P EST HI 40-54 MIN [id number] Diagnos is: ICD-10- CM I67.9 Cerebro vascula r disease , unspeci fied
VINNIE,BRINA B 04/23 [facility] [place] [facility] Outpatient Encounter [id number] 04/23 [facility] [place] [facility] Outpatient Encounter [id number] 04/30 [facility] [place] [facility] OFF/OP CONSLTJ NEW/EST HI 55 [id number] Diagnos is: ICD-10- CM I67.9 Cerebro vascula r disease , unspeci fied
REDDY MACKENZIE 05/14 [facility] [place] [facility] Outpatient Encounter [id number] 05/15 [facility] [place] [facility] EXT ECG>7D<15D REV&INTERP J [id number] Diagnos is: ICD-10- CM I48.0 Paroxys mal atrial fibrill ation<b r/> HAMLET WILL EY A 05/20 [place] [facility] [place] [facility] Outpatient Encounter [id number] Diagnos is: ICD-10- CM I48.91 Unspeci fied atrial fibrill ation<b r/> BRINA BIRMINGHAM B 05/24 [place] [facility] [place] [facility] Outpatient Encounter [id number] 05/27 [place] [facility] [place] [facility] Outpatient Encounter [id number] 05/29 [place] [facility] ELECTROCAR DIOGRAM COMPLETE [id number] Diagnos is: ICD-10- CM Z13.6 Encount er for screeni ng for cardiov ascular disorde rs
TESSY CUELLAR TT A 05/[address] [facility] OFFICE O/P EST HI 40-54 MIN [id number] Diagnos is: ICD-10- CM I10 Essenti al (primar y) hyperte nsion<b r/> Erik RODRIGEZ M 05/30 [facility] [place] [facility] Outpatient Encounter [id number] 05/31 [facility] QNHP OL DIG ASSMT&MGMT 21+ [id number] Diagnos is: ICD-10- CM Z79.01 shelter (curren t) use of anticoa gulants
POEPPING,H EATHER L 06/03 [facility] [place] [facility] Outpatient Encounter [id number] 06/03 [place] [facility] [place] [facility] Outpatient Encounter [id number] 06/04 [place] [facility] [place] [facility] Outpatient Encounter [id number] DAVID HANSEN 06/04 [place] [facility] [place] [facility] Outpatient Encounter [id number] DAVID HANSEN 06/05 [place] [place] [facility] HC PRO PHONE CALL 11-20 MIN [id number] Diagnos is: ICD-10- CM Z71.9 Color Checker ing, unspeci fied
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
JACOBO GREGG 07/04 [facility] [place] [facility] Outpatient Encounter [id number] 07/08 [place] [facility] [place] [facility] Outpatient Encounter [id number] 07/26 [place] [facility] [place] [facility] Outpatient Encounter [id number] 07/26 [place] [facility] [place] [facility] Outpatient Encounter [id number] 08/12 [place] [facility] [place] [facility] Outpatient Encounter [id number] 09/05 [place] [facility] [place] [facility] Outpatient Encounter [id number] CESAR KEITH 09/11 [place] [facility] [place] [facility] HC PRO PHONE CALL 5-10 MIN [id number] Diagnos is: ICD-10- CM Z71.9 Color Checker ing, unspeci fied
BRIAN COLORADO 09/13 [place] [facility] [place] [facility] Outpatient Encounter [id number] GABRIEL CHAUHAN 09/18 [place] [facility] [place] [facility] Outpatient Encounter [id number] 10/14 [place] [place] [facility] Outpatient Encounter [id number] 10/16 [place] [facility] [place] [facility] Outpatient [facility]counter [id number] 10/20 [place] [facility] [place] [facility] Outpatient Encounter [id number] 12/16 [place] [facility] [place] [facility] Outpatient Encounter [id number] 12/18 [facility] OFF[facility] O/P EST MOD 30 MIN [id number] Diagnos is: ICD-10- CM I10 Essenti al (primar y) hyperte nsion<b r/> BRINA BIRMINGHAM 12/18 [facility] HEARING AID REPAIR/MOD IFYING [id number] Diagnos is: ICD-10- CM Z01.118 Encntr for exam of ears and hearing w oth abnorma l finding s
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
JUAN RAMON CRABTREE 12/22 [facility] [place] [facility] Outpatient Encounter [id number] 12/29 [place] [facility] [place] [facility] Outpatient Encounter [id number] 01/[address] [facility] PRO PHONE CALL 11-20 MIN [id number] Diagnos is: ICD-10- CM I10 Essenti al (primar y) hyperte nsion<b r/> BRINA BIRMINGHAM 01/06 [facility] Outpatient Encounter [id number] BRINA BIRMINGHAM 01/23 [facility] Outpatient Encounter [id number] 01/[address] [facility] CONFORMITY EVALUATION [id number] Diagnos is: ICD-10- CM Z46.1 Encount er for fitting and adjustm ent of hearing aid<br/ > JASPAL GARRISON 01/29 [facility] [place] [facility] Outpatient Encounter [id number] 02/11 [facility] [place] [facility] Outpatient Encounter [id number] SYSTEM,CIS -ARK 04/14 [facility] EMERGENCY DEPT VISIT [facility] [id number] Diagnos is: ICD-10- CM R53.1 Weaknes s
GERMAIN VALDES 04/14 [facility] [place] [facility] Outpatient Encounter [id number] 04/17 [facility] Social History Combined list of available smoking, tobacco, and other social history from Department of Defense and Veterans Affairs facilities. Social History Type Response Date Comment Sourc e Tobacco smoking status NHIS VA-TOBACCO NEVER USED [facility] History of tobacco use VA-TOBACCO FORMER USER 04/24/2022 [facility] History of tobacco use VA-TOBACCO FORMER USER 02/23/2021 [facility] History of tobacco use PR-TOBACCO QUIT 1 5 YRS OR MORE 08/04/2019 [facility] History of tobacco use VA-TOBACCO QUIT 1 5 YRS OR MORE 07/28/2018 [facility] History of tobacco use FORMER TOBACCO US E >1Y <7Y 09/12/2017 [facility] History of tobacco use FORMER TOBACCO US ER 7Y OR GREATER 11/30/2016 [facility] History of tobacco use FORMER TOBACCO US E >1Y <7Y 09/19/2015 [facility] History of tobacco use FORMER TOBACCO US ER 7Y OR GREATER 12/03/2014 [facility] 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 12/01/2013 [facility] History of tobacco use FORMER TOBACCO US E >1Y <7Y 05/07/2012 [facility] History of tobacco use FORMER TOBACCO US E >1Y <7Y 08/01/2011 [facility] History of tobacco use CURRENT TOBACCO USER 07/24/2010 [facility] History of tobacco use CURRENT TOBACCO USER 08/03/2009 [facility] History of tobacco use CURRENT TOBACCO USER 08/23/2008 [facility] History of tobacco use CURRENT TOBACCO USER 08/15/2007 [facility] History of tobacco use FORMER TOBACCO US E >1Y <7Y 2006 [facility] Advance Directives List of completed, amended, or rescinded Advance Directives on record at Department of Veterans Affairs facilities. An actual copy of the Directive is not included. Date Advance Directive Provider Source 03/20/2023 ADVANCE DIRECTIVE DISCUSSION ELY BERTRAND [facility] 03/20/2023 ADVANCE DIRECTIVE ELY BERTRADN [facility] 08/02/2003 ADVANCE DIRECTIVE SHANDA CESAR [facility]
--- OUTSIDE RECORDS SUMMARY | 2024-04-18 13:53 | XMS_ITS | Encounter Summary ---
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 Facing Cutting Machine Operator Name Role Phone BRINA BIRMINGHAM Primary [...] PLATI LULA BLUE COMP Jul 22, 2016 [id number] [phone] JACK ZAMORA PATIENT ANTHEM [place] PREFERRED PROVIDER ORGANIZAT ION (PPO) PLATI NUM BLUE COMP Jul 22, 2016 [id number] [phone] JACK ZAMORA PATIENT ANTHEM [place] PREFERRED PROVIDER ORGANIZAT ION (PPO) PLATI NUM BLUE COMP Jul 22, 2016 [id number] [phone] JACK ZAMORA PATIENT BCBS [place] PREFERRED PROVIDER ORGANIZAT ION (PPO) PLATI NUM BLUE COMP Jul 22, 2016 [id number] [phone] JACK ZAMORA PATIENT [place]BS [place] [facility] (WNR) MEDICARE ADVANTAGE [facility] (WNR) Jul 22, 2016 [id number] [phone] JACK ZAMORA PATIENT [place] [facility] (WNR) MEDICARE ADVANTAGE [facility] (WNR) Jul 22, 2016 [id number] [phone] JACK ZAMORA MEDICARE (WNR) MEDICARE () PART A November 19, 2004 PART A [id number] JACK ZAMORA PATIENT MEDICARE (WNR) MEDICARE ([place]) PART B November 19, 2004 PART B [id number] JACK ZAMORA PATIENT PRIME THERAPEUTI CS RX PRESCRIPT ION BCBS [facility] Jul 22, 2016 [place] [id number] [phone] JACK ZAMORA PATIENT Selected Encounter This section includes the information on record at [place] for the Encounter. Date/Time Encounter Type Encounter Description Reason Provider Source May 14, 2023 02:30 PM OFF/OP CONSLTJ NEW/EST HI 55 NEUROLOGY ICD-10-CM I67.9 Cerebrovascular disease, unspecified EL MACKENZIE [facility] Encounter Template Text not used by [place] Assessments - Encounter Diagnoses This section includes the primary and secondary diagnoses documented for the Encounter. Date/Time Primary/Secondary Diagnosis Diagnosis Name Provider Source May 14, 2023 03:45 PM PRIMARY Cerebrovascular disease, unspecified EL MACKENZIE [facility] May 14, 2023 03:45 PM SECONDARY Essential (primary) hypertension EL MACKENZIE [facility] May 14, 2023 03:45 PM SECONDARY Unspecified dementia, moderate, without beh/psych/mood/anx EL MACKENZIE [facility] Plan of Treatment: Future Appointments (+ 6 months) and Future Tests (+/- 45 days) The Plan of Treatment section includes future care activities for the patient from all [place] treatmentfacilities. This section includes future appointments and future orders which are active, pending or scheduled. Future Appointments This section includes appointments that were scheduled to occur 6 months from the date of the Encounter, up to a maximum of 20 appointments. The data comes from all [place] treatment facilities. Appointment Date/Time Appointment Type Appointme nt Facility Name May 24, 2023 10:00 AM AMBULATORY - [place]ICINE [place] [facility] May 30, 2023 10:00 AM AMBULATORY - NONE [place] [facility] May 30, 2023 10:15 AM AMBUL[facility]ORY - MEDICINE [facility] May 30, 2023 11:00 AM [facility] May 30, 2023 12:30 PM AMBULATORY - NONE [place] [facility] Jun 04, 2023 04:47 PM AMBULATORY - NONE [place] [facility] Jun 05, 2023 08:16 PM AMBULATORY - NONE [place] [facility] Jul 03, 2023 05:30 PM AMBULATORY - REHAB MEDICIN E [facility] Lab Results: +/- 30 days of the encounter This section includes the Chemistry and Hematology Lab Results on record with [place] for the patient. Radiology Reports and Pathology Reports are provided separately, in subsequent sections. Lab Results This section contains the Chemistry/Hematology Results that were resulted 30 days before or 30 daysafter the date of the Encounter. Date/Time Source Result Type Result - Unit Interpretation Reference Range Comment May 30, 2023 10:03 AM [facility] UREA NITROGEN Specimen Type: PLASMA No comment entered. Ordering Provider: CRISTIANE DASILVA Report Released Date/Time: May 28, 2023 09:36 AM Reporting Lab: [facility] [id number] Performing Lab: [facility] [address] UREA NITROGEN 11 mg/dL 8-May 30, 2023 10:03 AM [facility] CREATININE(INCLUDES EGFR) Specimen Type: PLASMA No comment entered. Ordering Provider: CRISTIANE DASILVA Report Released Date/Time: May 28, 2023 09:36 AM Reporting Lab: [facility] [address] Performing Lab: [facility] [address] CREATININE 0.8 mg/dL 0.7-1.2 .CREAT EGFR(CKD-EPI) 88 >60 May 30, 2023 10:03 AM [facility] BNP Specimen Type: PLASMA No comment entered. Ordering Provider: CRISTIANE DASILVA Report Released Date/Time: May 28, 2023 09:36 AM Reporting Lab: [facility] [id number] Performing Lab: [facility] [phone] BNP 108 pg/mL H <99 May 30, 2023 10:03 AM [facility] ELECTROLYTES/ANION GAP Specimen Type: PLASMA No comment entered. Ordering Provider: CRISTIANE DASILVA Report Released Date/Time: May 28, 2023 09:36 AM Reporting Lab: [facility] [address] Performing Lab: [facility] [address] SODIUM 141 mmol/L 136-145 POTASSIUM 4.2 mmol/L 3.5-5.1 CHLORIDE 105 mmol/L 98-107 CO2 29 mmol/L 22-29 ANION GAP 7 mmol/L 5-15 Apr 23, 2023 03:10 PM [facility] HEMOGLOBIN A1C Specimen Type: BLOOD Comment: [...] Apr 23, 2023 02:30 PM Reporting Lab: [facility] [address] Performing Lab: [facility] [address] HEMOGLOBIN A1C 5.3 4.0-6.0 Apr 23, 2023 03:10 PM [facility] LIPID PANEL,NON-FASTING Specimen Type: PLASMA No comment entered. Ordering Provider: BRINA BIRMINGHAM Report Released Date/Time: Apr 23, 2023 02:30 PM Reporting Lab: [facility] [id number] Performing Lab: [facility] [address] CHOLESTEROL 108 mg/dL <199 .HDL 38 mg/dL L >40 LDL CALCULATION 38 mg/dL <99 VLDL CALCULATION 32 mg/dL H <29 NON HDL CHOLESTEROL 70 mg/dL <129 TRIG(NON FASTING) 159 mg/dL H <149 Apr 23, 2023 03:10 PM [facility] CBC Specimen Type: BLOOD No comment entered. Ordering Provider: BRINA BIRMINGHAM Report Released Date/Time: Apr 23, 2023 02:30 PM Reporting Lab: [facility] [phone] Performing Lab: [facility] [address] WBC 6.57 10*3/uL 4.0-11.0 RBC 4.61 10*6/uL 4.6-6.2 HGB 13.8 g/dL 13.5-17.9 HCT 40.4 L 41-54 MCV 87.6 fL 80-100 MCH 29.9 pg 27-33 MCHC 34.2 g/dL 32.0-37.5 PLT 191 10*3/uL 150-400 MPV 11.0 fL H 7.4-10.4 RDW 13.1 11.5-14.5 Apr 23, 2023 03:10 PM [facility] COMPREHENSIVE METABOLIC PANEL+MG Specimen Type: PLASMA No comment entered. Ordering Provider: BRINA BIRMINGHAM Report Released Date/Time: Apr 23, 2023 02:30 PM Reporting Lab: [facility] [address] Performing Lab: [facility] [address] CREATININE 0.7 mg/dL 0.7-1.2 UREA NITROGEN 13 [...] 18 /min 96 % 0 [place] [facility] Social History: Smoking Status (Most current) and Tobacco Use (All prior to encounter date) This section includes the most current, and the historical, smoking and tobacco- related health factors from the [place] facility where the Encounter took place. Current Smoking Status This section includes the most current smoking, or tobacco-related health factor, from the [place] facility where the Encounter took place. Date/Time Current Smoking Status Comment Facil ity Apr 23, 2023 01:00 PM VA-TOBACCO NEVER USED [facility] Tobacco Use History This section includes a history of the smoking, or tobacco-related health factors, that were collected on or before the date of the Encounter. The data comes from the [place] facility where the Encounter took place. Date/Time Smoking Status/Tobacco Use Comment F acility Apr 24, 2022 09:43 AM VA-TOBACCO FORMER USER [facility] Apr 24, 2022 09:43 AM VA-TOBACCO QUIT 15 YRS OR MORE [facility] Feb 23, 2021 11:00 AM VA-TOBACCO FORMER USER [facility] Feb 23, 2021 11:00 AM VA-TOBACCO QUIT 15 YRS OR MORE [facility] Aug 04, 2019 03:40 PM VA-TOBACCO FORMER USER [facility] Aug 04, 2019 03:40 PM VA-TOBACCO QUIT 15 YRS OR MORE [facility] Jul 28, 2018 10:03 AM VA-TOBACCO FORMER USER [facility] Jul 28, 2018 10:03 AM VA-TOBACCO QUIT 15 YRS OR MORE [facility] Sep 12, 2017 09:15 AM FORMER TOBACCO USE >1Y <7Y [facility] November 30, 2016 07:51 AM FORMER TOBACCO USER 7Y OR GREATE R [facility] Sep 19, 2015 11:18 AM FORMER TOBACCO USE >1Y <7Y [facility] December 03, 2014 07:58 AM FORMER TOBACCO USER 7Y OR GREATE R [facility] December 01, 2013 07:39 AM LIFETIME NON-TOBACCO USER [facility] May 07, 2012 07:53 AM FORMER TOBACCO USE >1Y <7Y [facility] Aug 01, 2011 08:59 AM FORMER TOBACCO USE >1Y <7Y [facility] Jul 24, 2010 07:49 AM CURRENT TOBACCO USER [facility] Aug 03, 2009 10:18 AM CURRENT TOBACCO USER [facility] Aug 23, 2008 07:54 AM CURRENT TOBACCO USER [facility] Aug 15, 2007 07:52 AM CURRENT TOBACCO USER [facility] 2006 07:43 AM FORMER TOBACCO USE >1Y <7Y [facility] Advance Directives: All historical and current Section Date Range: From patient's date of to the date document was created. This section includes ALL of a patient's completed or amended [place] Advance and Rescinded Directives. The entries below indicate that a directive exists for the patient, but an actual copy is not included with this document. The data comes from all [place] facilities. Date Advance Directives Provider Source Mar 20, 2023 ADVANCE DIRECTIVE DISCUSSION BERTRANDELY TOMLIN [facility] Mar 20, 2023 ADVANCE DIRECTIVE JERZYELY [facility] Aug 02, 2003 ADVANCE DIRECTIVE ARSENIODEVAN [facility] Radiology Reports: +/- 30 days [...] the Encounter. The data comes from all [place] treatment facilities. Date/Time Radiology Report Provider Source May 30, 2023 12:02 PM US CAROTID (BILATE RAL) (P): SHANTANU ZAMORA EVELYNE [id number] M Ex Date: MAY 30, 2023@12:02 Req Phys: BRINA BIRMINGHAM Pat Loc: [facility] 4D (Req'g Loc) Img Loc: Ultrasound Imaging Service: Unknown (Case [id number] COMPLETE) US CAROTID BILATERAL (US Detailed) CPT:36580 Reason for Study: History of CVA 01/2023, eval for carotid artery stenosis Clinical History: History of CVA 01/2023, eval for carotid artery stenosis Responsible provider name and phone number to notify for critical findings if other than user placing the order and pager listed below: User placing orders pager: [phone] LAST CREATININE 0.8 (04/20/23) Report Status: Verified Date Reported: MAY 30, 2023 Date Verified: MAY 30, 2023 Material Disposition Inspector E-Sig:/ES/WANDA VALDEZ MD Report: Bilateral Carotid Artery [...] note that as May 11, 2022 the [facility] Non-invasive Vascular Lab has adopted the carotid artery stenosis Duplex criteria endorsed by Intersocietal Accreditation Commission(IAC). The changes in criteria may explain differences in the degree of stenosis when compared with prior exams. IWanda, have reviewed the images and report. Primary Interpreting Staff: WANDA VALDEZ MD, RADIOLOGIST (Material Disposition Inspector) Primary Interpreting Resident: TORI ENNIS MD, SECURITY CONTROLS ASSESSOR /WANDA JIMENEZ [facility] May 30, 2023 12:01 PM US VENOUS INSUFFIC IENCY LOWER EXTREMITY (BILATERAL) (P): SHANTANU ZAMORA [id number] -1940 M Exm Date: MAY 30, 2023@12:01 Req Phys: VINNIE,BRINA B Pat Loc: [facility]D (Req'g Loc) Img Loc: Ultrasound Imaging Service: Unknown (Case [id number] COMPLETE) US VENOUS EXTREMITY BILATERAL (US Detailed) CPT:14693 Reason for Study: Chronic RLE edema Clinical History: Chronic RLE swelling w/ evidence of b/l varicose veins. Eval for venous insufficiency and r/o DVT Responsible provider name and phone number to notify for critical findings if other than user placing the order and pager listed below: User placing orders pager: [phone] LAST CREATININE 0.8 (11/08/22) Report Status: Verified Date Reported: MAY 30, 2023 Date Verified: MAY 30, 2023 Material Disposition Inspector E-Sig:/ES/VALENTIN BOYKIN MD Report: Lower Extremity Venous [...] Primary Interpreting Staff: VALENTIN BOYKIN MD, RADIOLOGIST (Material Disposition Inspector) Primary Interpreting Resident: TORI ENNIS MD, SECURITY CONTROLS ASSESSOR /VALENTIN REDD [facility] Encounter Notes: All associated encounter notes This section contains the clinical notes associated to the Encounter. Date/Time Encounter Note(s) Provider Source May 21, 2023 09:32 AM LETTERS: LOCAL TITLE: FOLLOW UP RESULTS LETTER STANDARD TITLE: LETTERS DATE OF NOTE: MAY 21, 2023@09:32 ENTRY DATE: MAY 21, 2023@09:32:40 AUTHOR: EL MACKENZIE EXP COSIGNER: URGENCY: STATUS: COMPLETED [facility] [address] [place] [address] Apr SHANTANU ZAMORA [place] [id number] Dear Orrick: I am writing to inform you of the results of the tests you had done at the [facility]. The tests below were performed and are satisfactory unless otherwise noted. Your Golf Coach shows that you were in Afib. I've consulted the anticoagulation department about starting you on an anticoagulant instead of aspirin. Please work with our pharmacist team to adjust your medicine to treat your Afib. Event monitor ([employer]) ECG REPORT 14 day heart monitor April [...] staff or me at the following number: [phone]. 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 Stencil Inspector 5/5 LUE: 5/5 shoulder abd, 5/5 elbow flex/ext, 5/5 wrist flex/ext. Stencil Inspector 5/5 RLE: 5/5 hip flex, 5/5 knee [...] will alert myself to the results of ekg monitor and Carotid U/S and follow up [...] 2. WIll follow on Carotid U/S and Golf Coach 3. Secondary Stroke Prevention BP < 130/80 LDL 40-70 A1c < 7 ASA per PCP Statin per PCP 60 minutes spent in review of records, examination and in documentation. PLAN: Secondary Stroke Prevention LDL 40-70 (38) BP < 130/80 A1c < 7 (5.3) Continue ASA per PCP Continue Statin per PCP /chadwick/ EL MACKENZIE DNP, VENDING MACHINE REPAIRER-C NEUROLOGY NURSE PRACTITIONER Signed: 05/14/2023 15:45 EL MACKENZIE [facility] May 14, 2023 02:24 PM NEUROLOGY NURSING OUTPATIENT NOTE: LOCAL TITLE: NEUROLOGY CLINIC NURSING NOTE STANDARD TITLE: NEUROLOGY NURSING OUTPATIENT NOTE DATE OF NOTE: MAY 14, 2023@14:24 ENTRY DATE: MAY 14, 2023@14:26:11 AUTHOR: CHETAN ALANIS EXP COSIGNER: URGENCY: STATUS: COMPLETED C-SSRS Screening [place] Suicide Severity Rating Scale (C-SSRS) screener 1. [...] DRY EYES 6) DRESS,MEPILEX BORDER FLEX 4X4IN #[id number] APPLY 1 ACTIVE DRESSING TOPICALLY EVERY DAY [...] LPN LPN Signed: 05/14/2023 14:28 CHETAN ALANIS [facility]
--- OUTSIDE RECORDS SUMMARY | 2024-04-18 13:53 | XMS_ITS | Encounter Summary ---
Author Name [facility] [place] Address [address] [place] [address] Care Team Providers Care Tennis Professional Name Role Phone BRINA BIRMINGHAM Primary Care [...] PLATI LULA BLUE COMP Jul 22, 2016 [id number] [phone] JACK COHN PATIENT ANTHEM [place]BS [place] PREFERRED PROVIDER ORGANIZAT ION (PPO) PLATI NUM BLUE COMP Jul 22, 2016 [id number] [phone] JACK COHN PATIENT ANTHEM [place] PREFERRED PROVIDER ORGANIZAT ION (PPO) PLATI NUM BLUE COMP Jul 22, 2016 [id number] [phone] JACK COHN PATIENT BCBS [place] PREFERRED PROVIDER ORGANIZAT ION (PPO) PLATI NUM BLUE COMP Jul 22, 2016 [id number] [phone] COHN PATIENT BCBS [facility] (WNR) MEDICARE ADVANTAGE [facility] (WNR) Jul 22, 2016 [id number] [phone] CO[address]IENT BCBS [facility] (WNR) MEDICARE ADVANTAGE [facility] (WNR) Jul 22, 2016 [id number] [phone] JACK COHN PATIENT MEDICARE ([place]) MEDICARE (M) PART A November 19, 2004 PART A [id number] JACK COHN PATIENT MEDICARE ([place]) MEDICARE (M) PART B November 19, 2004 PART B [id number] JACK COHN PATIENT PRIME THERAPEUTI CS RX PRESCRIPT ION BCBS [facility] Jul 22, 2016 [place] [id number] [phone] JACK COHN PATIENT Selected Encounter This section includes the information on record at [place] for the Encounter. Date/Time Encounter Type Encounter Description Reason Provider Source December 19, 2023 10:45 AM HEARING AID REPAIR/MODIFYING AUDIOLOGY ICD-10-CM Z01.118 Encntr for exam of ears and hearing w oth abnormal findings ADAM GARRISON Chitra Encounter Template Text not used by [place] Assessments - Encounter Diagnoses This section includes the primary and secondary diagnoses documented for the Encounter. Date/Time Primary/Secondary Diagnosis Diagnosis Name Provider Source December 19, 2023 12:48 PM PRIMARY Encntr for exam of ears and hearing w oth abnormal findings SOFIE GARRISON [facility] December 19, 2023 12:48 PM SECONDARY Sensorineural hearing loss, bilateral SOFIE GARRISON [facility] December 19, 2023 12:48 PM SECONDARY Tinnitus, bilateral SOFIE GARRISON [facility] Plan of Treatment: Future Appointments (+ [...] 06, 2024 09:30 AM [facility] Jan 07, 2024 09:00 AM AMBULATORY - MEDICINE [facility] Jan 30, 2024 07:45 AM AMBULATORY - SURGERY [facility] Apr 14, 2024 11:59 AM AMBULATORY - MEDICINE [facility] Lab Results: +/- 30 days of [...] Range Comment Jan 06, 2024 09:29 AM [facility] BASIC METABOLIC PANEL+MG Specimen Type: PLASMA No comment entered. Ordering Provider: BRINA BIRMINGHAM Report Released Date/Time: December 19, 2023 12:41 PM Reporting Lab: [facility] [address] Performing Lab: [facility] [address] CREATININE 0.8 mg/dL 0.7-1.2 UREA NITROGEN 13 mg/dL 8-26 GLUCOSE 95 mg/dL 70-100 SODIUM 141 mmol/L 136-145 POTASSIUM 3.8 mmol/L 3.5-5.1 CHLORIDE 107 mmol/L 98-107 CO2 26 mmol/L 22-29 CALCIUM 9.5 mg/dL 8.4-10.2 MAGNESIUM 2.0 mg/dL 1.6-2.6 ANION GAP 8 mmol/L 5-15 .CREAT EGFR(CKD-EPI) 88 >60 December 19, 2023 09:17 AM [facility] CBC Specimen Type: BLOOD No comment entered. Ordering Provider: BRINA BIRMINGHAM Report Released Date/Time: December 18, 2023 02:26 PM Reporting Lab: [facility] [address] Performing Lab: [facility] [address] WBC 6.74 10*3/uL 4.0-11.0 RBC 4.45 10*6/uL L 4.6-6.2 HGB 11.6 g/dL L 13.5-17.9 HCT 36.7 L 41-54 MCV 82.5 fL 80-100 MCH 26.1 pg L 27-33 MCHC 31.6 g/dL L 32.0-37.5 PLT 188 10*3/uL 150-400 MPV 11.1 fL H 7.4-10.4 RDW 13.4 11.5-14.5 December 19, 2023 09:17 AM [facility] LIPID PANEL,NON-FASTING Specimen Type: PLASMA No comment entered. Ordering Provider: BRINA BIRMINGHAM Report Released Date/Time: December 18, 2023 02:26 PM Reporting Lab: [facility] [address] Performing Lab: [facility] [address] CHOLESTEROL 109 mg/dL <199 .HDL 43 mg/dL >40 LDL CALCULATION 45 mg/dL <99 VLDL CALCULATION 21 mg/dL <29 NON HDL CHOLESTEROL 66 mg/dL <129 TRIG(NON FASTING) 107 mg/dL <149 December 19, 2023 09:17 AM [facility] B 12 Specimen Type: SERUM No comment entered. Ordering Provider: BRINA BIRMINGHAM Report Released Date/Time: December 18, 2023 02:26 PM Reporting Lab: [facility] [address] Performing Lab: [facility] [address] B 12 304 pg/mL 213-816 December 19, 2023 09:17 AM [facility] COMPREHENSIVE METABOLIC PANEL+MG Specimen Type: PLASMA No comment entered. Ordering Provider: BRINA BIRMINGHAM Report Released Date/Time: December 18, 2023 02:26 PM Reporting Lab: [facility] [address] Performing Lab: [facility] [address] CREATININE 0.8 mg/dL 0.7-1.2 UREA NITROGEN 11 [...] 88 >60 December 19, 2023 09:17 AM [facility] FOLATE Specimen Type: SERUM No comment entered. Ordering Provider: BRINA BIRMINGHAM Report Released Date/Time: December 18, 2023 02:26 PM Reporting Lab: [facility] [address] Performing Lab: [facility] [address] FOLATE 8.3 ng/mL >7.0 December 19, 2023 09:17 AM [facility] IRON GROUP Specimen Type: SERUM No comment entered. Ordering Provider: BRINA BIRMINGHAM Report Released Date/Time: December 19, 2023 12:41 PM Reporting Lab: [facility] [address] Performing Lab: [facility] [address] IRON 34 ug/dL L 65-175 TIBC,CALCULATED 364 [...] Source December 19, 2023 12:35 PM 133/75 [facility] December 19, 2023 10:04 AM 97.2 58 143/75 16 92 0 290.5 40 [facility] Social History: Smoking Status (Most [...] Mar 20, 2023 ADVANCE DIRECTIVE ELY [facility] Aug 02, 2003 ADVANCE DIRECTIVE SHANDA CESAR [facility] Encounter Notes: All associated encounter notes [...] EVALUATION AND HEARING AID SELECTION, 60 MINUTES: Trafford was seen in the clinic today for a comprehensive audiologic evaluation, hearing aid selection, and relevant counseling. Location of visit (Room Number): 2S-116 The was last seen in this clinic in 2020; his last hearing test was in 2020. The is Service Connected for Hearing Loss / Tinnitus. Trafford was accompanied by his daughter. The currently wears the following hearing aids: 09/24/18 GN RESOUND LINX QUATTRO TS61 MINI SHARI-R R [id number] 09/18/21 618 MPLS 09/24/18 GN RESOUND LINX QUATTRO TS61 MINI SHARI-R L [id number] 09/18/21 618 MPLS HEALTH HISTORY: Trafford had a stroke one year ago and mostly stopped wearing his aids. [ x ] Denies any significant otologic history. PROCEDURES: OTOSCOPY: Free of excessive cerumen. Normal appearing TM's and canals. AUDIOMETRICS: Air conduction, bone conduction and speech testing were completed bilaterally. Transducer: Insert phones Reliability: Good Results: See Audiogram Display or [employer] Database WORD RECOGNITION: Recorded W-22 word list RIGHT EAR: 72% Level: 80/50* dB LEFT EAR: 60% Level: 85/55* dB SUMMARY: Hearing is worse compared to the last examination. STANDARD CURRICULUM COUNSELING ON AMPLIFICATION AND RECOMMENDATIONS (30 Minutes): doesn't like the way his glasses interact with SHARI aids. He would prefer to try an in-the-ear style. - Trafford is a good candidate for continued hearing aid use. - was counseled on his type, degree and [...] and dexterity for hearing aid use. - counseled using a standard curriculum on realistic expectations associated with adjusting to hearing aids, use of the devices, [place] procedures and trial period. - Trafford counseled using a standard curriculum on effective [...] [STD], DIRECTIONAL MICROPHONE [STD], INSIO CHARGE-GO AX VIDEO CONTROL ENGINEER [STD], FEEDBACK CANCELLATION [STD], SPEECH PROCESSING ALGORITHIM [STD], ACTIVE OR ADAPTIVE NOISE REDUCTION [STD], TINNITUS THERAPY [STD], MEMORY BUTTON [STD], AUTOMATIC FUNCTION [STD] Shell Color: BEIGE Shell Options: CANAL RD PROJECT MANAGER, LARGE R-L LETTERS Faceplate: BEIGE Dexterity: REMOVAL [...] WITH THIS PLAN. /chadwick/ KJ FRENCH STAFF BLADE CHANGER Signed: 12/19/2023 12:48 RAND GARRISON [facility]
--- OUTSIDE RECORDS SUMMARY | 2024-04-18 13:53 | XMS_ITS | Encounter Summary ---
Author Name [facility] [place] [facility] [place] [facility] [facility] [place] Address [address] [place] [address] Care Team Providers Care Infantry Officer Name Role Phone BRINA BIRMINGHAM Primary Care [...] PLATI LULA BLUE COMP Jul 22, 2016 [id number] [phone] JACK COHN PATIENT ANTHEM [place] PREFERRED PROVIDER ORGANIZAT ION (PPO) PLATI NUM BLUE COMP Jul 22, 2016 [id number] [phone] JACK COHN PATIENT ANTHEM [place] PREFERRED PROVIDER ORGANIZAT ION (PPO) PLATI NUM BLUE COMP Jul 22, 2016 [id number] [phone] JACK COHN PATIENT [place] PREFERRED PROVIDER ORGANIZAT ION (PPO) PLATI NUM BLUE COMP Jul 22, 2016 [id number] [phone] JACK COHN [place]IENT [place] [facility] (WNR) MEDICARE ADVANTAGE [facility] (WNR) Jul 22, 2016 [id number] [phone] JACK COHN [place] [facility] ([place]NR) MEDICARE ADVANTAGE [facility] (WNR) Jul 22, 2016 [id number] [phone] JACK COHN MEDICARE (WNR) MEDICARE (M) PART A November 19, 2004 PART A [id number] JACK COHN MEDICARE (WNR) MEDICARE (M) PART B November 19, 2004 PART B [id number] [phone] JACK COHN PATIENT PRIME THERAPEUTI CS RX PRESCRIPT ION BCBS [facility] Jul 22, 2016 [id number] [phone] JACK COHN PATIENT Selected Encounter This section includes the information on record at [place] for the Encounter. Date/Time Encounter Type Encounter Description Reason Provider Source Jun 04, 2023 04:47 PM Outpatient Encounter ADMIN PAT ACTIVTIES (MASNONCT) DOROTEO HANSEN Chitra Encounter Template Text not used by [place] [...] 2023 08:16 PM AMBULATORY - NONE [place] [facility] Jul 03, 2023 05:30 PM AMBULATORY - REHAB [facility] Lab Results: +/- 30 days [...] Range Comment May 30, 2023 10:03 AM [facility] UREA NITROGEN Specimen Type: PLASMA No comment entered. Ordering Provider: CRISTIANE DASILVA Report Released Date/Time: May 28, 2023 09:36 AM Reporting Lab: [facility] [id number] Performing Lab: [facility] [id number] UREA NITROGEN 11 mg/dL 8-26 May 30, 2023 10:03 AM [facility] BNP Specimen Type: PLASMA No comment entered. Ordering Provider: CRISTIANE DASILVA Report Released Date/Time: May 28, 2023 09:36 AM Reporting Lab: [facility] [id number] Performing Lab: [facility] [id number] BNP 108 pg/mL H <99 May 30, 2023 10:03 AM [facility] CREATININE(INCLUDES EGFR) Specimen Type: PLASMA No comment entered. Ordering Provider: CRISTIANE DASILVA Report Released Date/Time: May 28, 2023 09:36 AM Reporting Lab: [facility] [id number] Performing Lab: [facility] [id number] CREATININE 0.8 mg/dL 0.7-1.2 .CREAT EGFR(CKD-EPI ) 88 >60 May 30, 2023 10:03 AM [facility] ELECTROLYTES/ANION GAP Specimen Type: PLASMA No comment entered. Ordering Provider: CRISTIANE DASILVA Report Released Date/Time: May 28, 2023 09:36 AM Reporting Lab: [facility] [id number] Performing Lab: [facility] [id number] SODIUM 141 mmol/L 136-145 POTASSIUM 4.2 mmol/L [...] 23, 2023 01:00 PM VA-TOBACCO NEVER USED [facility] Tobacco Use History This section includes a history of the smoking, or tobacco-related health factors, that were collected on or before the date of the Encounter. The data comes from the [place] facility where the Encounter took place. Date/Time Smoking Status/Tobacco Use Comment F acility Apr 24, 2022 09:43 AM VA-TOBACCO FORMER USER [facility] Apr 24, 2022 09:43 AM VA-TOBACCO QUIT 15 YRS OR MORE [facility] Feb 23, 2021 11:00 AM VA-TOBACCO FORMER USER [facility] Feb 23, 2021 11:00 AM VA-TOBACCO QUIT 15 YRS OR MORE [facility] Aug 04, 2019 03:40 PM VA-TOBACCO FORMER USER [facility] Aug 04, 2019 03:40 PM VA-TOBACCO QUIT 15 YRS OR MORE [facility] Jul 28, 2018 10:03 AM VA-TOBACCO FORMER USER [facility] Jul 28, 2018 10:03 AM VA-TOBACCO QUIT 15 YRS OR MORE [facility] Sep 12, 2017 09:15 AM FORMER TOBACCO USE >1Y <7Y [facility] November 30, 2016 07:51 AM FORMER TOBACCO USER 7Y OR GREATE R [facility] Sep 19, 2015 11:18 AM FORMER TOBACCO USE >1Y <7Y [facility] December 03, 2014 07:58 AM FORMER TOBACCO USER 7Y OR GREATE R [facility] December 01, 2013 07:39 AM LIFETIME NON-TOBACCO USER [facility] May 07, 2012 07:53 AM FORMER TOBACCO USE >1Y <7Y [facility] Aug 01, 2011 08:59 AM FORMER TOBACCO USE >1Y <7Y [facility] Jul 24, 2010 07:49 AM CURRENT TOBACCO USER [facility] Aug 03, 2009 10:18 AM CURRENT TOBACCO USER [facility] Aug 23, 2008 07:54 AM CURRENT TOBACCO USER [facility] Aug 15, 2007 07:52 AM CURRENT TOBACCO USER [facility] 2006 07:43 AM FORMER TOBACCO USE >1Y <7Y [facility] Advance Directives: All historical and current [...] 20, 2023 ADVANCE DIRECTIVE DISCUSSION ELY BERTRAND [facility] Mar 20, 2023 ADVANCE DIRECTIVE ELY BERTRAND [facility] Aug 02, 2003 ADVANCE DIRECTIVE SHANDA CESAR [facility] Radiology Reports: +/- 30 days of the [...] the Encounter. The data comes from all [place] treatment facilities. Date/Time Radiology Report Provider Source May 30, 2023 12:02 PM US CAROTID (BILATE RAL) (P): SHANTANU COHN [id number] M Exm Date: MAY 30, 2023@12:02 Req Phys: BRINA BIRMINGHAM Pat Loc: [facility] 4D (Req'g Loc) Img Loc: Ultrasound Imaging Service: Unknown (Case [id number] COMPLETE) US CAROTID BILATERAL (US Detailed) CPT:78120 Reason for Study: History of CVA 01/2023, eval for carotid artery stenosis Clinical History: History of CVA 01/2023, eval for carotid artery stenosis Responsible provider name and phone number to notify for critical findings if other than user placing the order and pager listed below: User placing orders pager: [phone] LAST CREATININE 0.8 (11/08/22) Report Status: Verified Date Reported: MAY 30, 2023 Date Verified: MAY 30, 2023 Audio Video Mechanic E-Sig:/ES/WANDA VALDEZ MD Report: Bilateral Carotid [...] note that as May 11, [address] [facility] Non-invasive Vascular Lab has adopted the carotid artery stenosis Duplex criteria endorsed by Intersocietal Accreditation Commission(IAC). The changes in criteria may explain differences in the degree of stenosis when compared with prior exams. IWanda, have reviewed the images and report. Primary Interpreting Staff: WANDA VALDEZ MD, RADIOLOGIST (Audio Video Mechanic) Primary Interpreting Resident: TORI ENNIS MD, SECURITY DELIVERY SPECIALIST /WANDA JIMENEZ [facility] May 30, 2023 12:01 PM US VENOUS INSUFFIC IENCY LOWER EXTREMITY (BILATERAL) (P): SHANTANU COHN [id number] -[id number] M Exm Date: MAY 30, 2023@12:01 Req Phys: BRINA BIRMINGHAM Pat Loc: [facility] PACT PORTER 4D (Req'g Loc) Img Loc: Ultrasound Imaging Service: Unknown (Case [id number] COMPLETE) US VENOUS EXTREMITY BILATERAL (US Detailed) CPT:50965 Reason for Study: Chronic RLE edema Clinical History: Chronic RLE swelling w/ evidence of b/l varicose veins. Eval for venous insufficiency and r/o DVT Responsible provider name and phone number to notify for critical findings if other than user placing the order and pager listed below: User placing orders pager: [phone] LAST CREATININE 0.8 (11/08/22) Report Status: Verified Date Reported: MAY 30, 2023 Date Verified: MAY 30, 2023 Audio Video Mechanic E-Sig:/ES/VALENTIN BOYKIN MD Report: Lower Extremity Venous [...] Primary Interpreting Staff: VALENTIN BOYKIN MD, RADIOLOGIST (Audio Video Mechanic) Primary Interpreting Resident: TORI ENNIS MD, SECURITY DELIVERY SPECIALIST /VALENTIN REDD [facility] Encounter Notes: All associated encounter notes This section contains the clinical notes associated to the Encounter. Date/Time Encounter Note(s) Provider Source Jun 06, 2023 12:26 PM ADDENDUM: LOCAL TITLE: Addendum STANDARD TITLE: ADDENDUM DATE OF NOTE: JUN 06, 2023@12:26:18 ENTRY DATE: JUN 06, 2023@12:26:20 AUTHOR: JULI LAFLEUR EXP COSIGNER: URGENCY: STATUS: COMPLETED was seen in an outside ER on: 06/03/2023 Diagnosis: Closed in injury Medical records have been uploaded to the patient's chart and are available for viewing in [facility]. Please review for plan of care and any follow-up needed. /corry Lafleur NETWORK TECHNOLOGY INSTRUCTOR CNOR electro tech Diesel Retrofit Designer Signed: 06/06/2023 12:27 Receipt Acknowledged By: 06/06/2023 13:01 /chadwick/ ERINN FLANNERY RN REGISTERED NURSE 06/07/2023 09:21 /es/ BRINA BIRMINGHAM MD PHYSICIAN, [facility] --- Original Document --- 06/03/23 [facility] SELF PRESENTING CARE COORD PLAN NOTE: Emergency Notification Intake Date Presenting to the Facility: May Method of Contact: Notified from [employer] worklist Notification ID: [id number] [facility] [place] [facility] [place] [facility] Address: [address] [place] [address] City: [place] State: [place] Zip Code: [address] Phone : [facility] Point of Contact: Name: [facility] Chief complaint: FALL Primary Diagnosis: Disposition Discharged Date of discharge: May Discharge to home /corry REYNOLDS IT SPECIALIST Signed: 06/04/2023 16:53 Receipt Acknowledged By: 06/05/2023 09:44 /es/ GALLITO SINGLETARY RN electro tech Diesel Retrofit Designer for DOROTEO HANSEN 06/05/2023 ADDENDUM STATUS: COMPLETED Co-signing the [facility] Nurse covering this episode of care/facility. /corry SINGLETARY RN electro tech Diesel Retrofit Designer Signed: 06/05/2023 09:44 Receipt Acknowledged By: 06/06/2023 12:17 /chadwick/ Juli Lafleur NETWORK TECHNOLOGY INSTRUCTOR CNOR electro tech Diesel Retrofit Designer JULI LAFLEUR [facility] Jun 05, 2023 09:44 AM ADDENDUM: LOCAL TITLE: Addendum STANDARD TITLE: ADDENDUM DATE OF NOTE: JUN 05, 2023@09:44:34 ENTRY DATE: JUN 05, 2023@09:44:36 AUTHOR: GALLITO SINGLETARY EXP COSIGNER: URGENCY: STATUS: COMPLETED Co-signing the [facility] Nurse covering this episode of care/facility. /corry SINGLETARY RN electro tech Diesel Retrofit Designer Signed: 06/05/2023 09:44 Receipt Acknowledged By: 06/06/2023 12:17 /corry Lafleur RN BSN CNOR electro tech Diesel Retrofit Designer --- Original Document --- 06/03/23 [facility] SELF PRESENTING CARE COORD PLAN NOTE: Emergency Notification Intake Date Presenting to the Facility: May Method of Contact: Notified from [employer] worklist Notification ID: [id number] [facility] [place] [facility] [place] Hospital[place] [facility] Address: [address] [place] [address] City: [place] State: [place] Zip Code: [address] Phone : [facility] Point of Contact: Name: [facility] Chief complaint: FALL Primary Diagnosis: Disposition Discharged Date of discharge: May Discharge to home /chadwick/ [place] REYNOLDS IT SPECIALIST Signed: 06/04/2023 16:53 Receipt Acknowledged By: 06/05/2023 09:44 /corry SINGLETARY RN electro tech Diesel Retrofit Designer for DOROTEO HANSEN 06/06/2023 ADDENDUM STATUS: COMPLETED [place] was seen in an outside ER on: 06/03/2023 Diagnosis: Closed in injury Medical records have been uploaded to the patient's chart and are available for viewing in [facility]. Please review for plan of care and any follow-up needed. /corry Lafleur RN BSN CNOR electro tech Diesel Retrofit Designer Signed: 06/06/2023 12:27 Receipt Acknowledged By: 06/06/2023 13:01 /chadwick/ ERINN FLANNERY RN REGISTERED NURSE * AWAITING SIGNATURE * BRINA BIRMINGHAM LISA MARIE [facility] Jun 03, 2023 04:47 PM NONVA NOTE: LOCAL TITLE: [facility] SELF PRESENTING CARE COORD PLAN STANDARD TITLE: NONVA NOTE DATE OF NOTE: JUN 03, 2023@16:47 ENTRY DATE: JUN 04, 2023@16:47:51 AUTHOR: CH[place] REYNOLDS COSIGNER: URGENCY: STATUS: COMPLETED [facility] SELF PRESENTING CARE COORD PLAN NOTE Has ADDENDA Emergency Notification Intake Date Presenting to the Facility: May Method of Contact: Notified from [employer] worklist Notification ID: [id number] [facility] [place] [facility] [place] Hospital[place] [facility] Address: [address] City: [place] State: [place] Zip Code: [address] Phone : [facility] Point of Contact: Name: [facility] Chief complaint: FALL Primary Diagnosis: Disposition Discharged Date of discharge: May Discharge to home /chadwick/ [place] REYNOLDS IT SPECIALIST Signed: 06/04/2023 16:53 Receipt Acknowledged By: 06/05/2023 09:44 /chadwick/ GALLITO SINGLETARY RN electro tech Diesel Retrofit Designer for DOROTEO HANSEN 06/05/2023 ADDENDUM STATUS: COMPLETED Co-signing the [facility] Nurse covering this episode of care/facility. /corry SINGLETARY RN electro tech Diesel Retrofit Designer Signed: 06/05/2023 09:44 Receipt Acknowledged By: 06/06/2023 12:17 /corry Lafleur RN BSN CNOR electro tech Diesel Retrofit Designer 06/06/2023 ADDENDUM STATUS: COMPLETED was seen in an outside ER on: 06/03/2023 Diagnosis: Closed in injury Medical records have been uploaded to the patient's chart and are available for viewing in [facility]. Please review for plan of care and any follow-up needed. /corry Lafleur RN BSN CNOR electro tech Diesel Retrofit Designer Signed: 06/06/2023 12:27 Receipt Acknowledged By: 06/06/2023 13:01 /corry FLANNERY RN REGISTERED NURSE * AWAITING SIGNATURE * BRINA BIRMINGHAM CHRISTINA M [facility]
--- OUTSIDE RECORDS SUMMARY | 2024-04-18 13:53 | XMS_ITS | Encounter Summary ---
Author Name [facility] [place] Address [address] [place] [address] Care Team Providers Care Lime Plant Operator Name Role Phone BRINA BIRMINGHAM Primary [...] PLATI LULA BLUE COMP Jul 22, 2016 [id number] [phone] JACK COHN PATIENT ANTHEM BCBS [place] PREFERRED PROVIDER ORGANIZAT ION (PPO) PLATI NUM BLUE COMP Jul 22, 2016 [id number] [phone] JACK COHN PATIENT ANTHEM [place] PREFERRED PROVIDER ORGANIZAT ION (PPO) PLATI NUM BLUE COMP Jul 22, 2016 [id number] [phone] JACK COHN PATIENT BCBS [place] PREFERRED PROVIDER ORGANIZAT ION (PPO) PLATI NUM BLUE COMP Jul 22, 2016 [id number] [phone] JACK COHN PATIENT BCBS [facility] (WNR) MEDICARE ADVANTAGE [facility] (WNR) Jul 22, 2016 [id number] [phone] JACK COHN PATIENT BCBS [facility] (WNR) MEDICARE ADVANTAGE [facility] (WNR) Jul 22, 2016 [id number] [phone] JACK COHN PATIENT MEDICARE (WNR) MEDICARE (M) PART A November 19, 2004 PART A [id number] JACK COHN PATIENT MEDICARE (WNR) MEDICARE (M) PART B November 19, 2004 PART B [id number] JACK COHN PATIENT PRIME THERAPEUTI CS RX PRESCRIPT ION BCBS [place] Jul 22, 2016 [id number] [phone] JACK COHN PATIENT Selected Encounter This section includes the information on record at CT for the Encounter. Date/Time Encounter Type Encounter Description Reason Provider Source Jun 03, 2023 11:51 AM QNHP OL DIG ASSMT&MGMT 21+ CLINICAL PHARMACY ICD-10-CM Z79.01 jail (current) use of anticoagulants [facility] Encounter Template Text not used by CT Assessments - Encounter Diagnoses This section includes the primary and secondary diagnoses documented for the Encounter. Date/Time Primary/Secondary Diagnosis Diagnosis Name Provider Source Jun 03, 2023 12:24 PM PRIMARY jail (current) use of anticoagulants [facility] Jun 03, 2023 12:24 PM SECONDARY [facility]erebral infarction, [facility] Jun 03, 2023 12:24 PM SECONDARY Encounter for therapeutic drug level monitoring [facility] Jun 03, 2023 12:24 PM SECONDARY Unspecified atrial fibrillation [facility] Plan of Treatment: Future Appointments (+ 6 months) and Future Tests (+/- 45 days) The Plan of Treatment section includes future care activities for the [facility] This section includes future appointments and future orders which are active, pending or scheduled. Future Appointments This section includes appointments that were scheduled to occur 6 months from the date of the Encounter, up to a maximum of 20 appointments. The data comes from all CT treatment facilities. Appointment Date/Time Appointment Type Appointme nt Facility Name Jun 04, 2023 04:47 PM AMBULATORY - NONE [facility] Jun 05, 2023 08:16 PM AMBULATORY - NONE [facility] Jul 03, 2023 05:30 PM AMBULATORY - REHAB MEDICIN E [facility] Lab Results: +/- 30 days of the encounter This section includes the Chemistry and Hematology Lab Results on record with CT for the patient. Radiology Reports and Pathology Reports are provided separately, in subsequent sections. Lab Results This section contains the Chemistry/Hematology Results that were resulted 30 days before or 30 daysafter the date of the Encounter. Date/Time Source Result Type Result - Unit Interpretation Reference Range Comment May 30, 2023 10:03 AM [facility] UREA NITROGEN Specimen Type: PLASMA No comment entered. Ordering Provider: CRISTIANE DASILVA Report Released Date/Time: May 28, 2023 09:36 AM Reporting Lab: [facility] [id number] Performing Lab: [facility] [address] UREA NITROGEN 11 mg/dL 8-May 30, 2023 10:03 AM [facility] CREATININE(INCLUDES EGFR) Specimen Type: PLASMA No comment entered. Ordering Provider: CRISTIANE DASILVA Report Released Date/Time: May 28, 2023 09:36 AM Reporting Lab: [facility] [id number] Performing Lab: [facility] [address] CREATININE 0.8 mg/dL 0.7-1.2 .CREAT EGFR(CKD-EPI ) 88 >60 May 30, 2023 10:03 AM [facility] BNP Specimen Type: PLASMA No comment entered. Ordering Provider: CRISTIANE DASILVA Report Released Date/Time: May 28, 2023 09:36 AM Reporting Lab: [facility] [address] Performing Lab: [facility] [address] BNP 108 pg/mL H <99 May 30, 2023 10:03 AM [facility] ELECTROLYTES/ANION GAP Specimen Type: PLASMA No comment entered. Ordering Provider: CRISTIANE DASILVA Report Released Date/Time: May 28, 2023 09:36 AM Reporting Lab: [facility] [address] Performing Lab: [facility] [address] SODIUM 141 mmol/L 136-145 POTASSIUM 4.2 mmol/L 3.5-5.1 CHLORIDE 105 mmol/L 98-107 CO2 29 mmol/L 22-29 ANION GAP 7 mmol/L 5-15 Social History: Smoking Status (Most current) and Tobacco Use (All prior to encounter date) This section includes the most current, and the historical, smoking and tobacco- related health factors from the CT facility where the Encounter took place. Current Smoking Status This section includes the most current smoking, or tobacco-related health factor, from the CT facility where the Encounter took place. Date/Time Current Smoking Status Comment Facil ity Apr 23, 2023 01:00 PM VA-TOBACCO NEVER USED [facility] Tobacco Use History This section includes a history of the smoking, or tobacco-related health factors, that were collected on or before the date of the Encounter. The data comes from the CT facility where the Encounter took place. Date/Time Smoking Status/Tobacco Use Comment F acility Apr 24, 2022 09:43 AM VA-TOBACCO FORMER USER [facility] Apr 24, 2022 09:43 AM VA-TOBACCO QUIT 15 YRS OR MORE [facility] Feb 23, 2021 11:00 AM VA-TOBACCO FORMER USER [facility] Feb 23, 2021 11:00 AM VA-TOBACCO QUIT 15 YRS OR MORE [facility] Aug 04, 2019 03:40 PM VA-TOBACCO FORMER USER [facility] Aug 04, 2019 03:40 PM VA-TOBACCO QUIT 15 YRS OR MORE [facility] Jul 28, 2018 10:03 AM VA-TOBACCO FORMER USER [facility] Jul 28, 2018 10:03 AM VA-TOBACCO QUIT 15 YRS OR MORE [facility] Sep 12, 2017 09:15 AM FORMER TOBACCO USE >1Y <7Y [facility] November 30, 2016 07:51 AM FORMER TOBACCO USER 7Y OR GREATE R [facility] Sep 19, 2015 11:18 AM FORMER TOBACCO USE >1Y <7Y [facility] December 03, 2014 07:58 AM FORMER TOBACCO USER 7Y OR GREATE R [facility] December 01, 2013 07:39 AM LIFETIME NON-TOBACCO USER [facility] May 07, 2012 07:53 AM FORMER TOBACCO USE >1Y <7Y [facility] Aug 01, 2011 08:59 AM FORMER TOBACCO USE >1Y <7Y [facility] Jul 24, 2010 07:49 AM CURRENT TOBACCO USER [facility] Aug 03, 2009 10:18 AM CURRENT TOBACCO USER [facility] Aug 23, 2008 07:54 AM CURRENT TOBACCO USER [facility] Aug 15, 2007 07:52 AM CURRENT TOBACCO USER [facility] 2006 07:43 AM FORMER TOBACCO USE >1Y <7Y [facility] Advance Directives: All historical and current Section Date Range: From patient's date of to the date document was created. This section includes ALL of a patient's completed or amended CT Advance and Rescinded Directives. The entries below indicate that a directive exists for the patient, but an actual copy is not included with this document. The data comes from all CT facilities. Date Advance Directives Provider Source Mar 20, 2023 ADVANCE DIRECTIVE DISCUSSION ELY BERTRAND [facility] Mar 20, 2023 ADVANCE DIRECTIVE BERTRAND,ELY Pita [facility] Aug 02, 2003 ADVANCE DIRECTIVE ARSENIODEVAN GABEFORMERLY [facility] Radiology Reports: +/- 30 days of the [...] the Encounter. The data comes from all CT treatment facilities. Date/Time Radiology Report Provider Source May 30, 2023 12:02 PM US CAROTID (BILATE RAL) (P): SHANTANU COHN EVELYNE [id number] -1940 M Exm Date: MAY 30, 2023@12:02 Req Phys: BRINA BIRMINGHAM Pat Loc: [facility] PACT PORTER 4D (Req'g Loc) Img Loc: Ultrasound Imaging Service: Unknown (Case [id number] COMPLETE) US CAROTID BILATERAL (US Detailed) CPT:54653 Reason for Study: History of CVA 01/2023, eval for carotid artery stenosis Clinical History: History of CVA 01/2023, eval for carotid artery stenosis Responsible provider name and phone number to notify for critical findings if other than user placing the order and pager listed below: User placing orders pager: [phone] LAST CREATININE 0.8 (11/08/22) Report Status: Verified Date Reported: MAY 30, 2023 Date Verified: MAY 30, 2023 Maid Cleaning Cooking E-Sig:/ES/WANDA VALDEZ MD Report: Bilateral Carotid Artery [...] note that as May 11, 2022 the [facility] Non-invasive Vascular Lab has adopted the carotid artery stenosis Duplex criteria endorsed by Intersocietal Accreditation Commission(IAC). The changes in criteria may explain differences in the degree of stenosis when compared with prior exams. IWanda, have reviewed the images and report. Primary Interpreting Staff: WANDA VALDEZ MD, RADIOLOGIST (Maid Cleaning Cooking) Primary Interpreting Resident: TORI ENNIS MD, DANCE DIRECTOR /WANDA JIMENEZ [facility] May 30, 2023 12:01 PM US VENOUS INSUFFIC IENCY LOWER EXTREMITY (BILATERAL) (P): SHANTANU COHN [id number] -1940 M Exm Date: MAY 30, 2023@12:01 Req Phys: BRINA BIRMINGHAM Pat Loc: [facility] PACT PORTER 4D (Req'g Loc) Img Loc: Ultrasound Imaging Service: Unknown (Case [id number] COMPLETE) US VENOUS EXTREMITY BILATERAL (US Detailed) CPT:73165 Reason for Study: Chronic RLE edema Clinical History: Chronic RLE swelling w/ evidence of b/l varicose veins. Eval for venous insufficiency and r/o DVT Responsible provider name and phone number to notify for critical findings if other than user placing the order and pager listed below: User placing orders pager: [phone] LAST CREATININE 0.8 (11/08/22) Report Status: Verified Date Reported: MAY 30, 2023 Date Verified: MAY 30, 2023 Maid Cleaning Cooking E-Sig:/ES/VALENTIN BOYKIN MD Report: Lower Extremity Venous [...] Primary Interpreting Staff: VALENTIN BOYKIN MD, RADIOLOGIST (Maid Cleaning Cooking) Primary Interpreting Resident: TORI ENNIS MD, DANCE DIRECTOR /VALENTIN REDD [facility] Encounter Notes: All associated encounter notes This [...] updated medication list was sent over to [facility] with PCP signature in order to discontinue aspirin use and start apixaban use. It appears this was requested last week so just wanted to verify that this was taken care of. Thank you. /chadwick/ Jacob Draper PharmD, BCACP Clinical Acidity Tester Signed: 06/03/2023 12:59 Receipt Acknowledged By: 06/03/2023 14:32 /es/ ERINN FLANNERY RN REGISTERED NURSE --- Original Document --- 06/03/23 ANTICOAGULATION CLINIC CONSULT: DOAC INITIATION - Anticoagulant: Apixaban 5mg q12h - Indication(s): A-fib - Relevant PMH: - Left centrum semiovale CVA dx 01/2023 - h/o cognitive impairment, lives at [facility] and has HHN help - Prior major bleeds: none - Prior anticoagulants: none - Start date: 05/2023 - Anticipated duration: indefinite - [id number] = age+2, CVA+2, HTN = 5: MODERATE RISK - HASBLED = age, CVA = 2: MODERATE RISK - Notes: Best to speak with daughter, Raine Zaidi, regarding patient (P:[phone]). - Care Coordination: - Patient resides at [facility] who are currently helping set-up/administer meds (P:[phone]; F:[phone]). - SYSTEMS PROGRAM MANAGER: [facility] (P:[phone]; F:[phone]) HHN: Ele P:[phone] - will be starting w/ pt and possibly switch to [facility] set-up meds with pt taking on his own. SUBJECTIVE/OBJECTIVE: Obtained from chart review, [facility]/outside records, and pts daughter Raine today by phone. No Active bleeding/increased bleeding risk: No Active endocarditis: No Falls risk: - Counseled on what to do for fall/head injury YES Abnormal mental status\compliance concerns: - h/o cognitive impairment, lives at [facility] and has HHN help No Significant [...] (11/08/22 09:36) Non-VA Scr excluded from calculation: OnBh=562.33 (Wt: 04/23/2023 13:10) (Actual Body Weight) Collection [...] for labs, drug interactions, and compliance. - jail use of anticoagulants added to problem list. [...] minutes /chadwick/ Jacob Draper PharmD, BCACP Clinical Acidity Tester Signed: 06/03/2023 12:24 06/03/2023 ADDENDUM STATUS: COMPLETED This request was already completed. /chadwick/ ERINN FLANNERY RN REGISTERED NURSE Signed: 06/03/2023 14:32 JACOB DRAPER [facility] Jun 03, 2023 11:51 AM MEDICATION MGT [...] 01/2023 - h/o cognitive impairment, lives at [facility] and has HHN help - Prior major bleeds: none - Prior anticoagulants: none - Start date: 05/2023 - Anticipated duration: indefinite - [id number] = age+2, CVA+2, HTN = 5: MODERATE RISK - HASBLED = age, CVA = 2: MODERATE RISK - Notes: Best to speak with daughter, Raine Zaidi, regarding patient (P:[phone]). - Care Coordination: - Patient resides at [facility] who are currently helping set-up/administer meds (P:[phone]; F:[phone]). - SYSTEMS PROGRAM MANAGER: [facility] (P:[phone]; F:[phone]) HHN: Ele P:[phone] - will be starting w/ pt and possibly switch to [facility] set-up meds with pt taking on his own. SUBJECTIVE/OBJECTIVE: Obtained from chart review, [facility]/outside records, and pts daughter Raine today by phone. No Active bleeding/increased bleeding risk: No Active endocarditis: No Falls risk: - Counseled on what to do for fall/head injury YES Abnormal mental status\compliance concerns: - h/o cognitive impairment, lives at [facility] and has HHN help No Significant [...] (11/08/22 09:36) Non-VA Scr excluded from calculation: GfTy=189.33 (Wt: 04/23/2023 13:10) (Actual Body Weight) Collection [...] for labs, drug interactions, and compliance. - jail use of anticoagulants added to problem list. [...] minutes /chadwick/ Jacob Draper PharmD, BCACP Clinical Acidity Tester Signed: 06/03/2023 12:24 06/03/2023 ADDENDUM STATUS: COMPLETED With discussion of apixaban education today, daughter wanted to make sure that an updated medication list was sent over to [facility] with PCP signature in order to discontinue aspirin use and start apixaban use. It appears this was requested last week so just wanted to verify that this was taken care of. Thank you. /David BarthD, BCACP Clinical Acidity Tester Signed: 06/03/2023 12:59 Receipt Acknowledged By: 06/03/2023 14:32 /chadwick/ ERINN FLANNERY RN REGISTERED NURSE 06/03/2023 ADDENDUM STATUS: COMPLETED This request was already completed. /corry FLANNERY RN REGISTERED NURSE Signed: 06/03/2023 14:32 JACOB DRAPER [facility]
--- OUTSIDE RECORDS SUMMARY | 2024-04-18 13:53 | XMS_ITS | Encounter Summary ---
Author Name [place] Address [address] [place] [address] Care Team Providers Care Learning Disabilities Resource Teacher Name Role Phone BRINA BIRMINGHAM Primary Care [...] PLATI LULA BLUE COMP Jul 22, 2016 [id number] [phone] JACK COHN PATIENT ANTHEM [employer]BS [place] PREFERRED PROVIDER ORGANIZAT ION (PPO) PLATI NUM BLUE COMP Jul 22, 2016 [id number] [phone] JACK COHN PATIENT ANTHEM [place] PREFERRED PROVIDER ORGANIZAT ION (PPO) PLATI NUM BLUE COMP Jul 22, 2016 [id number] [phone] JACK COHN PATIENT BCBS [place] PREFERRED PROVIDER ORGANIZAT ION (PPO) PLATI NUM BLUE COMP Jul 22, 2016 [id number] [phone] JACK COHN PATIENT [place]BS [place] [facility] (WNR) MEDICARE ADVANTAGE [facility] (WNR) Jul 22, 2016 [id number] [phone] JACK COHN PATIENT [place] [facility] ([place]NR) MEDICARE ADVANTAGE [facility] (WNR) Jul 22, 2016 [id number] [phone] JACK COHN MEDICARE (WNR) MEDICARE (M) PART A November 19, 2004 PART A [id number] JACK COHN PATIENT MEDICARE (WNR) MEDICARE (M) PART B November 19, 2004 PART B [id number] JACK COHN PATIENT PRIME THERAPEUTI CS RX PRESCRIPT ION BCBS [facility] Jul 22, 2016 [id number] [phone] JACK COHN PATIENT Selected Encounter This section includes the information on record at [place] for the Encounter. Date/Time Encounter Type Encounter Description Reason Pro vider Source Jun 03, 2023 12:39 PM Outpatient Encounter PRIMARY CARE/MEDICINE IHE Encounter Template Text not used by [place] Plan of Treatment: Future Appointments (+ 6 [...] 04, 2023 04:47 PM AMBULATORY - NONE [facility] Jun 05, 2023 08:16 PM AMBULATORY - NONE [facility] Jul 03, 2023 05:30 PM AMBULATORY - REHAB [facility] Lab Results: +/- 30 days [...] Range Comment May 30, 2023 10:03 AM [facility] UREA NITROGEN Specimen Type: PLASMA No comment entered. Ordering Provider: CRISTIANE DASILVA Report Released Date/Time: May 28, 2023 09:36 AM Reporting Lab: [facility] [address] Performing Lab: [facility] [address] UREA NITROGEN 11 mg/dL 8-26 May 30, 2023 10:03 AM [facility] BNP Specimen Type: PLASMA No comment entered. Ordering Provider: CIRSTIANE DASILVA Report Released Date/Time: May 28, 2023 09:36 AM Reporting Lab: [facility] [address] Performing Lab: [facility] [address] BNP 108 pg/mL H <99 May 30, 2023 10:03 AM [facility] CREATININE(INCLUDES EGFR) Specimen Type: PLASMA No comment entered. Ordering Provider: CRISTIANE DASILVA Report Released Date/Time: May 28, 2023 09:36 AM Reporting Lab: [facility] [address] Performing Lab: [facility] [address] CREATININE 0.8 mg/dL 0.7-1.2 .CREAT EGFR(CKD-EPI ) 88 >60 May 30, 2023 10:03 AM [facility] ELECTROLYTES/ANION GAP Specimen Type: PLASMA No comment entered. Ordering Provider: CRISTIANE DASILVA Report Released Date/Time: May 28, 2023 09:36 AM Reporting Lab: [facility] [address] Performing Lab: [facility] [address] SODIUM 141 mmol/L 136-145 POTASSIUM 4.2 mmol/L [...] Mar 20, 2023 ADVANCE DIRECTIVE ELY BERTRAND [facility] Aug 02, 2003 ADVANCE DIRECTIVE SHANDA CESAR [facility] Radiology Reports: +/- 30 days of [...] the Encounter. The data comes from all [place] treatment facilities. Date/Time Radiology Report Provider Source May 30, 2023 12:02 PM US CAROTID (BILATE RAL) (P): SHANTANU COHN [id number] -1940 M Exm Date: MAY 30, 2023@12:02 Req Phys: BRINA BIRMINGHAM Pat Loc: [facility] PACT PORTER 4D (Req'g Loc) Img Loc: Ultrasound Imaging Service: Unknown (Case [id number] COMPLETE) US CAROTID BILATERAL (US Detailed) CPT:53247 Reason for Study: History of CVA 01/2023, eval for carotid artery stenosis Clinical History: History of CVA 01/2023, eval for carotid artery stenosis Responsible provider name and phone number to notify for critical findings if other than user placing the order and pager listed below: User placing orders pager: [phone] LAST CREATININE 0.8 (11/08/22) Report Status: Verified Date Reported: MAY 30, 2023 Date Verified: MAY 30, 2023 Senior Research Project Manager E-Sig:/ES/WANDA VALDEZ MD Report: Bilateral Carotid Artery [...] note that as May 11, 2022 the [facility] Non-invasive Vascular Lab has adopted the carotid artery stenosis Duplex criteria endorsed by Intersocietal Accreditation Commission(IAC). The changes in criteria may explain differences in the degree of stenosis when compared with prior exams. IWanda, have reviewed the images and report. Primary Interpreting Staff: WANDA VALDEZ MD, RADIOLOGIST (Senior Research Project Manager) Primary Interpreting Resident: TORI ENNIS MD, OCCUPATIONAL THERAPY ASST /WANDA JIMENEZ [facility] May 30, 2023 12:01 PM US VENOUS INSUFFIC IENCY LOWER EXTREMITY (BILATERAL) (P): SHANTANU COHN [id number] -1940 M Exm Date: MAY 30, 2023@12:01 Req Phys: BRINA BIRMINGHAM Pat Loc: [facility] PACT PORTER 4D (Req'g Loc) Img Loc: Ultrasound Imaging Service: Unknown (Case [id number] COMPLETE) US VENOUS EXTREMITY BILATERAL (US Detailed) CPT:16357 Reason for Study: Chronic RLE edema Clinical History: Chronic RLE swelling w/ evidence of b/l varicose veins. Eval for venous insufficiency and r/o DVT Responsible provider name and phone number to notify for critical findings if other than user placing the order and pager listed below: User placing orders pager: [phone] LAST CREATININE 0.8 (11/08/22) Report Status: Verified Date Reported: MAY 30, 2023 Date Verified: MAY 30, 2023 Senior Research Project Manager E-Sig:/ES/VALENTIN BENAVIDEZ MD Report: Lower Extremity Venous [...] Primary Interpreting Staff: VALENTIN BENAVIDEZ MD, RADIOLOGIST (Senior Research Project Manager) Primary Interpreting Resident: TORI ENNIS MD, OCCUPATIONAL THERAPY ASST /VALENTIN REDD [facility] Encounter Notes: All associated encounter notes This section contains the clinical notes associated to the Encounter. Date/Time Encounter Note(s) Provider Source Jun 03, 2023 12:39 PM LETTERS: LOCAL TITLE: FOLLOW UP RESULTS LETTER STANDARD TITLE: LETTERS DATE OF NOTE: JUN 03, 2023@12:39 ENTRY DATE: JUN 03, 2023@12:39:17 AUTHOR: BRINA BIRMINGHAM EXP COSIGNER: URGENCY: STATUS: COMPLETED [facility] [place] [address] May SHANTANU COHN [facility] [address] [facility] [address] Dear [place]: I wanted to let you know that [...] staff or me at the following number: [phone]. Sincerely, BRINA BIRMINGHAM MD PHYSICIAN, [facility] BRINA BIRMINGHAM [facility]
--- OUTSIDE RECORDS SUMMARY | 2024-04-18 13:53 | XMS_ITS | Encounter Summary ---
Author Name [facility] [place] [facility] [place] Address [address] [place] [address] Care Team Providers Care Perforator Name Role Phone BRINA BIRMINGHAM Primary Care [...] PLATI LULA BLUE COMP Jul 22, 2016 [id number] [phone] JACK ZMAORA PATIENT ANTHEM [employer] [place] PREFERRED PROVIDER ORGANIZAT ION (PPO) PLATI NUM BLUE COMP Jul 22, 2016 [id number] [phone] JACK ZAMORA PATIENT ANTHEM [employer] [place] PREFERRED PROVIDER ORGANIZAT ION (PPO) PLATI NUM BLUE COMP Jul 22, 2016 [id number] [phone] JACK ZAMORA PATIENT [place] PREFERRED PROVIDER ORGANIZAT ION (PPO) PLATI NUM BLUE COMP Jul 22, 2016 [id number] [phone] JACK ZAMORA PATIENT BCBS [facility] (WNR) MEDICARE ADVANTAGE [facility] (WNR) Jul 22, 2016 [id number] [phone] JACK ZAMORA PATIENT BCBS [facility] (WNR) MEDICARE ADVANTAGE [facility] (WNR) Jul 22, 2016 [id number] [phone] JACK ZAMORA PATIENT MEDICARE (WNR) MEDICARE () PART A November 19, 2004 PART A [id number] [phone] JACK ZAMORA PATIENT MEDICARE (WNR) MEDICARE (M) PART B November 19, 2004 PART B [id number] JACK ZAMORA PATIENT PRIME THERAPEUTI CS RX PRESCRIPT ION BS [facility] Jul 22, 2016 [id number] [phone] JACK ZAMORA PATIENT Selected Encounter This section includes the information on record at [place] for the Encounter. Date/Time Encounter Type Encounter Description Reason Provider Source May 30, 2023 11:00 AM OFFICE O/P EST HI 40-54 MIN CARDIOLOGY ICD-10-CM I10 Essential (primary) hypertension DOROTEO RODRIGEZ [facility] Encounter Template Text not used by [place] Assessments - Encounter Diagnoses This section includes the primary and secondary diagnoses documented for the Encounter. Date/Time Primary/Secondary Diagnosis Diagnosis Name Provider Source May 30, 2023 12:01 PM PRIMARY Essential (primary) hypertension DOROTEO RODRIGEZ [facility] May 30, 2023 12:01 PM SECONDARY Cerebrovascular disease, unspecified DOROTEO RODRIGEZ [facility] May 30, 2023 12:01 PM SECONDARY Gastro-esophageal reflux disease without esophagitis DOROTEO RODRIGEZ [facility] May 30, 2023 12:01 PM SECONDARY Obstructive sleep apnea (adult) (pediatric) DOROTEO RODRIGEZ [facility] May 30, 2023 12:01 PM SECONDARY Paroxysmal atrial fibrillation DOROTEO RODRIGEZ [facility] Plan of Treatment: Future Appointments (+ 6 months) and Future Tests (+/- 45 days) The Plan of Treatment section includes [facility] care [facility] the [facility] This section includes future appointments and future orders which are active, pending or scheduled. Future Appointments This section includes appointments that were scheduled to occur 6 months from the date of the Encounter, up to a maximum of 20 appointments. The data comes from all [place] treatment facilities. Appointment Date/Time Appointment Type Appointme nt Facility Name Jun 04, 2023 04:47 PM [facility] Jun 05, 2023 08:16 PM AMBULATORY - NONE [facility] Jul 03, 2023 05:30 PM AMBULATORY - REHAB MEDICIN E [facility] Lab Results: +/- 30 days of the encounter This section includes the Chemistry and Hematology Lab Results on record with PA for the patient. Radiology Reports and Pathology [...] May 28, 2023 09:36 AM Reporting Lab: [facility] [id number] Performing Lab: [facility] [id number] UREA NITROGEN 11 mg/dL 8-26 May 30, 2023 10:03 AM [facility] BNP Specimen Type: PLASMA No comment entered. Ordering Provider: CRISTIANE DASILVA Report Released Date/Time: May 28, 2023 09:36 AM Reporting Lab: [facility] [id number] Performing Lab: [facility] [id number] BNP 108 pg/mL H <99 May 30, 2023 10:03 AM [facility] CREATININE(INCLUDES EGFR) Specimen Type: PLASMA No comment entered. Ordering Provider: CRISTIANE DASILVA Report Released Date/Time: May 28, 2023 09:36 AM Reporting Lab: [facility] [id number] Performing Lab: [facility] [id number] CREATININE 0.8 mg/dL 0.7-1.2 .CREAT EGFR(CKD-EPI ) 88 >60 May 30, 2023 10:03 AM [facility] ELECTROLYTES/ANION GAP Specimen Type: PLASMA No comment entered. Ordering Provider: CRISTIANE DASILVA Report Released Date/Time: May 28, 2023 09:36 AM Reporting Lab: [facility] [address] Performing Lab: [facility] [address] SODIUM 141 mmol/L 136-145 POTASSIUM 4.2 mmol/L 3.5-5.1 CHLORIDE 105 mmol/L 98-107 CO2 29 mmol/L 22-29 ANION GAP 7 mmol/L 5-15 Social History: Smoking Status (Most current) and Tobacco Use (All prior to encounter date) This section includes the most current, and the historical, smoking and tobacco- related health factors from the [place] facility where the Encounter took place. Current Smoking Status This section includes the most current smoking, or tobacco-related health factor, from the [place] facility where the Encounter took place. Date/Time Current Smoking Status Comment Facil ity Apr 23, 2023 01:00 PM VA-TOBACCO NEVER USED [facility] Tobacco Use History This section includes a history of the smoking, or tobacco-related health factors, that were collected on or before the date of the Encounter. The data comes from the [place] facility where the Encounter took place. Date/Time [...] ALL of a patient's completed or amended [place] Advance and Rescinded Directives. The entries below indicate that a directive exists for the patient, but an actual copy is not included with this document. The data comes from all [facility]. Date Advance Directives Provider Source Mar 20, 2023 ADVANCE DIRECTIVE DISCUSSION BERTRAND,ELY Lema [facility] Mar 20, 2023 ADVANCE DIRECTIVE ELY BERTRAND [facility] Aug 02, 2003 ADVANCE DIRECTIVE [facility] Radiology Reports: +/- 30 days [...] the Encounter. The data comes from all [place] treatment facilities. Date/Time Radiology Report Provider Source May 30, 2023 12:02 PM US CAROTID (BILATE RAL) (P): SHANTANU ZAMORA EVELYNE [id number] -1940 M Exm Date: MAY 30, 2023@12:02 Req Phys: VINNIE,BRINA B Pat Loc: [facility] 4D (Req'g Loc) Img Loc: Ultrasound Imaging Service: Unknown (Case [id number] COMPLETE) US CAROTID BILATERAL (US Detailed) CPT:43416 Reason for Study: History of CVA 01/2023, eval for carotid artery stenosis Clinical History: History of CVA 01/2023, eval for carotid artery stenosis Responsible provider name and phone number to notify for critical findings if other than user placing the order and pager listed below: User placing orders pager: [phone] LAST CREATININE 0.8 (11/08/22) Report Status: Verified Date Reported: MAY 30, 2023 Date Verified: MAY 30, 2023 Press Setup Operator E-Sig:/ES/WANDA VALDEZ MD Report: Bilateral Carotid Artery [...] note that as May 11, 2022 the [facility] Non-invasive Vascular Lab has adopted the carotid artery stenosis Duplex criteria endorsed by Intersocietal Accreditation Commission(IAC). The changes in criteria may explain differences in the degree of stenosis when compared with prior exams. IWanda, have reviewed the images and report. Primary Interpreting Staff: WANDA VALDEZ MD, RADIOLOGIST (Press Setup Operator) Primary Interpreting Resident: TORI ENNIS MD, ORDER ENTRY CLERK /WANDA JIMENEZ [facility] May 30, 2023 12:01 PM US VENOUS INSUFFIC IENCY LOWER EXTREMITY (BILATERAL) (P): SHANTANU ZAMORA [id number] -1940 M Exm Date: MAY 30, 2023@12:01 Req Phys: BRINA BIRMINGHAM Pat Loc: [facility] PACT [facility]ORTER 4D (Req'g Loc) Img Loc: Ultrasound Imaging Service: Unknown (Case [id number] COMPLETE) US VENOUS EXTREMITY BILATERAL (US Detailed) CPT:26506 Reason for Study: Chronic RLE edema Clinical History: Chronic RLE swelling w/ evidence of b/l varicose veins. Eval for venous insufficiency and r/o DVT Responsible provider name and phone number to notify for critical findings if other than user placing the order and pager listed below: User placing orders pager: [phone] LAST CREATININE 0.8 (11/08/22) Report Status: Verified Date Reported: MAY 30, 2023 Date Verified: MAY 30, 2023 Press Setup Operator E-Sig:/ES/VALENTIN BOYKIN MD Report: Lower Extremity Venous [...] Primary Interpreting Staff: VALENTIN BOYKIN MD, RADIOLOGIST (Press Setup Operator) Primary Interpreting Resident: TORI ENNIS MD, ORDER ENTRY CLERK /VALENTIN REDD [facility] Encounter Notes: [...] the patient's age and history of stroke. Cheyenne is accompanied by his daughter today. He [...] Benign prostatic hyperplasia 2. Hypertension (SNOMED CT 37231836) 3. Gastroesophageal reflux disease - Also known hiatal hernia 4. Morbid obesity 5. 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 Osteoarthritis of hip - was evaluated by ortho 09/2017 and deferred surgery given weight 7. Mild cognitive impairment 8. Lumbosacral Radiculopathy (SCT 4785931) - At one point neurosurgery was planning for L2-S1 fusion with L3-5 laminectomies but this was cancelled 10/2021. - Has had improvement with duloxetine and use of Rollator 9. Depression (SCT 37251159) 10. Nocturia - Has long history of this, and previously followed with urology, last seeing them 2018 - Prior UA has been normal - Suspect largely driven by BPH +/- MEGHA 11. Obstructive sleep apnea syndrome - Suspected by pulm 2022, watchPAT pending 12. Paroxysmal Atrial Fibrillation (SCT [id number]) - Dx 04/2023 following CVA 01/2023 - [...] DRY EYES 6) DRESS,MEPILEX BORDER FLEX 4X4IN #[id number] APPLY 1 ACTIVE DRESSING TOPICALLY EVERY DAY [...] BLOOD 7.41 15.1 46.3 175 86.5 DIAGNOSTICS/IMAGING/SCORING [id number] Score: 5 (age, HTN, CVA) EK05/30/2023 Normal sinus rhythm with sinus arrhythmia Left anterior hemiblock moderate voltage criteria for LVH Event monitor ([employer]) ECG REPORT 14 day heart monitor April [...] Zio shows low burden of 10% on radiographer cardiac catheterization with longest episode of 12 hours. Average heart rate in Afib was 101, range 51-173. QVF6JE5-CYEp is elevated at 5, showing an increased [...] Recommend initiating metoprolol for rate control. - [id number] Score is 5, therefore continue anticoagulation - [...] MEGHA. [facility]IAL [facility]RILLAT[facility] brochure was given to Cheyenne. Today's consult and recommendations discussed with him [...] a day without symptoms. EF is normal. DMI8QM5-YJFp score is 5 and he is tolerating systemic anticoagulation. Agree with recommendation to add low-dose metoprolol for better rate control when he is in atrial fibrillation. Do not recommend rhythm control strategy at this time. Thank you for referring this pt to the consult service. Please page me at [phone] if you would like to discuss this case further. Thank you. /chadwick/ JUSTINA WILL MD PHYSICIAN Signed: 05/30/2023 13:53 DOROTEO RODRIGEZ [facility]
--- OUTSIDE RECORDS SUMMARY | 2024-04-18 13:53 | XMS_ITS | Encounter Summary ---
Author Name [facility] [place] [facility] [place] [facility] [place] Address [address] [place] [address] Care Team Providers Care De Icer Installer Name Role Phone BRINA BIRMINGHAM Primary Care [...] PLATI LULA BLUE COMP Jul 22, 2016 [id number] [phone] JACK COHN PATIENT ANTHEM [place] PREFERRED PROVIDER ORGANIZAT ION (PPO) PLATI NUM BLUE COMP Jul 22, 2016 [id number] [phone] JACK COHN PATIENT ANTHEM [place] PREFERRED PROVIDER ORGANIZAT ION (PPO) PLATI NUM BLUE COMP Jul 22, 2016 [id number] [phone] JACK COHN PATIENT [place] PREFERRED PROVIDER ORGANIZAT ION (PPO) PLATI NUM BLUE COMP Jul 22, 2016 [id number] [phone] JACK COHN PATIENT [place] [facility] (WNR) MEDICARE ADVANTAGE [facility] (WNR) Jul 22, 2016 [id number] [phone] JACK CONH PATIENT [place] [facility] (WNR) MEDICARE ADVANTAGE [facility] (WNR) Jul 22, 2016 [id number] [phone] JACK COHN MEDICARE (WNR) MEDICARE ([place]) PART A November 19, 2004 PART A [id number] JACK COHN MEDICARE (WNR) MEDICARE (M) PART B November 19, 2004 PART B [id number] [phone] JACK COHN PATIENT PRIME THERAPEUTI CS RX PRESCRIPT ION BCBS [facility] Jul 22, 2016 [id number] [phone] JACK COHN PATIENT Selected Encounter This section includes the information on record at [place] for the Encounter. Date/Time Encounter Type Encounter Description Reason Provider Source Apr 23, 2023 01:00 PM OFFICE O/P EST HI 40-54 MIN PRIMARY CARE/MEDICINE ICD-10-CM I67.9 Cerebrovascular disease, unspecified VINNIE,BRINA B IHE Encounter Template Text not used by [place] Assessments - Encounter Diagnoses This section includes the primary and secondary diagnoses documented for the Encounter. Date/Time Primary/Secondary Diagnosis Diagnosis Name Provider Source Apr 23, 2023 03:47 PM PRIMARY Cerebrovascular disease, unspecified VINNIE,BRINA B [facility] Apr 23, 2023 03:47 PM SECONDARY Essential (primary) hypertension VINNIE,BRINA B [facility] Plan of Treatment: Future Appointments (+ 6 months) and Future Tests (+/- 45 days) The Plan of Treatment section includes future care activities for the patient from all [place] treatmentfacilities. This section includes future appointments and future orders which are active, pending or scheduled. Future Appointments This section includes appointments that were scheduled to occur 6 months from the date of the Encounter, up to a maximum of 20 appointments. The data comes from all [place] treatment facilities. Appointment Date/Time Appointment Type Appointme nt Facility Name May 14, 2023 02:30 PM AMBULATORY - REHAB MEDICIN E [facility] May 24, 2023 10:00 AM AMBULATORY - MEDICINE [facility] May 30, 2023 10:00 AM AMBULATORY - NONE [facility] May 30, 2023 10:15 AM AMBULATORY - MEDICINE [facility] May 30, 2023 11:00 AM AMBULATORY - MEDICINE [facility] May 30, 2023 12:30 PM AMBULATORY - NONE [facility] Jun 04, 2023 04:47 PM AMBULATORY - NONE [facility] Jun 05, 2023 08:16 PM AMBULATORY - NONE [facility] Jul 03, 2023 05:30 PM AMBULATORY - REHAB MEDICIN E [facility] Lab Results: +/- 30 days of the encounter This section includes the Chemistry and Hematology Lab Results on record with [place] for the patient. Radiology Reports and Pathology Reports are provided separately, in subsequent sections. Lab Results This section contains the Chemistry/Hematology Results that were resulted 30 days before or 30 daysafter the date of the Encounter. Date/Time Source Result Type Result - Unit Interpretation Reference Range Comment Apr 23, 2023 03:10 PM [facility] HEMOGLOBIN A1C Specimen Type: BLOOD Comment: [...] Apr 23, 2023 02:30 PM Reporting Lab: [facility] [id number] Performing Lab: [facility] [id number] HEMOGLOBIN A1C 5.3 4.0-6.0 Apr 23, 2023 03:10 PM [facility] LIPID PANEL,NON-FASTING Specimen Type: PLASMA No comment entered. Ordering Provider: BRINA BIRMINGHAM Report Released Date/Time: Apr 23, 2023 02:30 PM Reporting Lab: [facility] [id number] Performing Lab: [facility] [id number] CHOLESTEROL 108 mg/dL <199 .HDL 38 mg/dL L >40 LDL CALCULATION 38 mg/dL <99 VLDL CALCULATION 32 mg/dL H <29 NON HDL CHOLESTEROL 70 mg/dL <129 TRIG(NON FASTING) 159 mg/dL H <149 Apr 23, 2023 03:10 PM [facility] CBC Specimen Type: BLOOD No comment entered. Ordering Provider: BRINA BIRMINGHAM Report Released Date/Time: Apr 23, 2023 02:30 PM Reporting Lab: [facility] [id number] Performing Lab: [facility] [id number] WBC 6.57 10*3/uL 4.0-11.0 RBC 4.61 10*6/uL 4.6-6.2 HGB 13.8 g/dL 13.5-17.9 HCT 40.4 L 41-54 MCV 87.6 fL 80-100 MCH 29.9 pg 27-33 MCHC 34.2 g/dL 32.0-37.5 PLT 191 10*3/uL 150-400 MPV 11.0 fL H 7.4-10.4 RDW 13.1 11.5-14.5 Apr 23, 2023 03:10 PM [facility] COMPREHENSIVE METABOLIC PANEL+MG Specimen Type: PLASMA No comment entered. Ordering Provider: BRINA BIRMINGHAM Report Released Date/Time: Apr 23, 2023 02:30 PM Reporting Lab: [facility] [id number] Performing Lab: [facility] [id number] CREATININE 0.7 mg/dL 0.7-1.2 UREA NITROGEN 13 [...] Apr 23, 2023 01:11 PM 71.5 in [facility] Apr 23, 2023 01:10 PM 98 F 75 /min 132/75 mm[Hg] 18 /min 92 % 0 272.2 lb 38 [facility] Social History: Smoking Status (Most current) and Tobacco Use (All prior to encounter date) This section includes the most current, and the historical, smoking and tobacco- related health factors from the [place] facility where the Encounter took place. Current Smoking Status This section includes the most current smoking, or tobacco-related health factor, from the [place] facility where the Encounter took place. Date/Time Current Smoking Status Comment Facil ity Apr 23, 2023 01:00 PM VA-TOBACCO NEVER USED [facility] Tobacco Use History This section includes a history of the smoking, or tobacco-related health factors, that were collected on or before the date of the Encounter. The data comes from the [place] facility where the Encounter took place. Date/Time Smoking Status/Tobacco Use Comment F acility Apr 24, 2022 09:43 AM VA-TOBACCO FORMER USER [facility] Apr 24, 2022 09:43 AM VA-TOBACCO QUIT 15 YRS OR MORE [facility] Feb 23, 2021 11:00 AM VA-TOBACCO FORMER USER [facility] Feb 23, 2021 11:00 AM VA-TOBACCO QUIT 15 YRS OR MORE [facility] Aug 04, 2019 03:40 PM VA-TOBACCO FORMER USER [facility] Aug 04, 2019 03:40 PM VA-TOBACCO QUIT 15 YRS OR MORE [facility] Jul 28, 2018 10:03 AM VA-TOBACCO FORMER USER [facility] Jul 28, 2018 10:03 AM VA-TOBACCO QUIT 15 YRS OR MORE [facility] Sep 12, 2017 09:15 AM FORMER TOBACCO USE >1Y <7Y [facility] November 30, 2016 07:51 AM FORMER TOBACCO USER 7Y OR GREATE R [facility] Sep 19, 2015 11:18 AM FORMER TOBACCO USE >1Y <7Y [facility] December 03, 2014 07:58 AM FORMER TOBACCO USER 7Y OR GREATE R [facility] December 01, 2013 07:39 AM LIFETIME NON-TOBACCO USER [facility] May 07, 2012 07:53 AM FORMER TOBACCO USE >1Y <7Y [facility] Aug 01, 2011 08:59 AM FORMER TOBACCO USE >1Y <7Y [facility] Jul 24, 2010 07:49 AM CURRENT TOBACCO USER [facility] Aug 03, 2009 10:18 AM CURRENT TOBACCO USER [facility] Aug 23, 2008 07:54 AM CURRENT TOBACCO USER [facility] Aug 15, 2007 07:52 AM CURRENT TOBACCO USER [facility] 2006 07:43 AM FORMER TOBACCO USE >1Y <7Y [facility] Advance Directives: All historical and current Section Date Range: From patient's date of to the date document was created. This section includes ALL of a patient's completed or amended [place] Advance and Rescinded Directives. The entries below indicate that a directive exists for the patient, but an actual copy is not included with this document. The data comes from all [facility]. Date Advance Directives Provider Source Mar 20, 2023 ADVANCE DIRECTIVE DISCUSSION ELY BERTRAND [facility] Mar 20, 2023 [facility], [facility] ADVANCE DIRECTIVE SHANDA CESAR [facility] Encounter Notes: All associated encounter [...] she prefers a call 05/24/23 at 1000. Member Of Congress shared it was to discuss anticoagulation. Member Of Congress shared that an anticoag consult was already placed so she might be contacted by pharmacy. She said that the provider [facility] the [facility] mentioned something to her about Vet being [...] 05/23/2023 13:28 /es/ BRINA BIRMINGHAM MD PHYSICIAN, [facility] --- Original Document --- 04/23/23 MEDICINE [...] be related to above. Now living in [facility]. #Low back pain with MRI [...] month Brina Birmingham MD General Internal Medicine [facility] A total of 60 minutes was spent [...] were also reviewed/updated for accuracy. Allergies/ADR from [facility] may not display in CPRS. Use JLV MRT5 - Allergies/ADRs [facility] ALLERGY/ADR -------- No Remote Allergy/ADR Data available for this patient [facility] MORPHINE Active and Recently Outpatient Medications (including [...] MPV: 11.0 H /corry BIRMINGHAM MD PHYSICIAN, [facility] Signed: 04/23/2023 15:47 05/21/2023 ADDENDUM STATUS: COMPLETED Yamilet, the patient's clinical research monitor shows he has an irregular rhythm [...] am until noon). /corry BIRMINGHAM MD PHYSICIAN, [facility] Signed: 05/21/2023 16:22 Receipt Acknowledged By: 05/23/2023 08:58 /chadwick/ ERINN FLANNERY RN REGISTERED NURSE ERINN FLANNERY [facility] May 21, 2023 04:17 PM ADDENDUM: LOCAL TITLE: Addendum STANDARD TITLE: ADDENDUM DATE OF NOTE: MAY 21, 2023@16:17:07 ENTRY DATE: MAY 21, 2023@16:17:09 AUTHOR: BRINA BIRMINGHAM EXP COSIGNER: URGENCY: STATUS: COMPLETED Yamilet, the patient's clinical research monitor shows he has an irregular rhythm [...] until noon). /chadwick/ BRINA BIRMINGHAM MD PHYSICIAN, [facility] Signed: 05/21/2023 16:22 Receipt Acknowledged By: [...] be related to above. Now living in [facility]. #Low back pain with MRI [...] month Brina Birmingham MD General Internal Medicine [facility] A total of 60 minutes was spent [...] Allergy/ADR Data available for this patient [facility] MORPHINE Active and Recently Outpatient Medications (including [...] 11.0 H /chadwick/ BRINA BIRMINGHAM MD PHYSICIAN, [facility] Signed: 04/23/2023 15:47 05/23/2023 ADDENDUM STATUS: UNSIGNED You may not VIEW this UNSIGNED Addendum. BRINA BIRMINGHAM [facility] Apr 24, 2023 08:37 AM LETTERS: LOCAL TITLE: FOLLOW UP RESULTS LETTER STANDARD TITLE: LETTERS DATE OF NOTE: APR 24, 2023@08:37 ENTRY DATE: APR 24, 2023@08:38:01 AUTHOR: BRINA BIRMINGHAM EXP COSIGNER: URGENCY: STATUS: COMPLETED [facility] [address] [place] [address] Apr SHANTANU NAVARRETETNTERRENCE [address] [address] Dear : It was nice seeing you [...] staff or me at the following number: [phone]. Sincerely, BRINA BIRMINGHAM MD PHYSICIAN, [facility] BRINA BIRMINGHAM [facility] Apr 23, 2023 02:36 PM ADMINISTRATIVE NOTE: [...] provided to the patient is available in [employer]. SCANNED DOCUMENT SIGNATURE NOT REQUIRED Electronically Filed: 04/23/2023 by: BRINA BIRMINGHAM MD PHYSICIAN, [facility] BRINA BIRMINGHAM [facility] Apr 23, 2023 01:12 PM INTERNAL MEDICINE [...] medications or herbals. Suicide Screen: C-SSRS Screening [place] Suicide Severity Rating Scale (C-SSRS) screener 1. [...] ulcers, or a wound from a medical consultant or Patient is bed-confined or a wheelchair-user or Patient requires assistance to transfer/change position No, Skin Screen is Negative Home Abuse/Violence Screen Is your home free of abuse and violence? Yes MOVE! Program Screen Body Mass Index (BMI)= 37.5 [place]: Collection DT Specimen Test Name Result Units Ref Range 11/08/2022 09:36 BLOOD !! HEMOGLOBIN A1C 5.4 % 4.0 - 6.0 !! Indicates COMMENTS AVAILABLE...Refer to Interim Lab Report. [place] Hgb A1C: No data available [place] Hgb A1C: No data available Point of Care Hgb A1C: POC HGB A1C____ Outpatient Nutrition Screen Body Mass Index (BMI)= 37.5 [place]: Collection DT Specimen Test Name Result Units Ref Range 11/08/2022 09:36 BLOOD !! HEMOGLOBIN A1C 5.4 % 4.0 - 6.0 !! Indicates COMMENTS AVAILABLE...Refer to Interim Lab Report. [place] Hgb A1C: No data available [place] Hgb A1C: No data available Point of [...] Not worried about housing near future [facility] reports the following: Within the past 12 [...] REGISTERED NURSE Cosigned: 04/23/2023 14:40 URI DAWSON [facility] Apr 23, 2023 01:00 PM INTERNAL MEDICINE [...] be related to above. Now living in [facility]. #Low back pain with MRI [...] month Brina Birmingham MD General Internal Medicine [facility] A total of 60 minutes was spent [...] Remote Allergy/ADR Data available for this patient [facility] MORPHINE Active and Recently Outpatient Medications (including [...] 11.0 H /es/ BRINA BIRMINGHAM MD PHYSICIAN, [facility] Signed: 04/23/2023 15:47 05/21/2023 ADDENDUM STATUS: COMPLETED Yamilet, the patient's clinical research monitor shows he has an irregular rhythm [...] am until noon). /corry BIRMINGHAM MD PHYSICIAN, [facility] Signed: 05/21/2023 16:22 Receipt Acknowledged By: 05/23/2023 08:58 /chadwikc/ ERINN FLANNERY RN REGISTERED NURSE 05/23/2023 ADDENDUM STATUS: COMPLETED Spoke with Raine and she prefers a call 05/24/23 at 1000. Member Of Congress shared it was to discuss anticoagulation. Member Of Congress shared that an anticoag consult was already placed so she might be contacted by pharmacy. She said that the provider at the [facility] mentioned something to her about Vet being [...] AWAITING SIGNATURE * BRINA BIRMINGHAM LE[facility]
--- OUTSIDE RECORDS SUMMARY | 2024-04-18 13:53 | XMS_ITS | Encounter Summary ---
Author Name [facility] [facility] [place] [facility] [facility] [place] Address [address] [place] [address] Care Team Providers Care Card Clothier Name Role Phone BRINA BIRMINGHAM Primary Care [...] PLATI LULA BLUE COMP Jul 22, 2016 [id number] [phone] JACK COHN PATIENT ANTHEM [place] PREFERRED PROVIDER ORGANIZAT ION (PPO) PLATI NUM BLUE COMP Jul 22, 2016 [id number] [phone] JACK COHN PATIENT ANTHEM [place] PREFERRED PROVIDER ORGANIZAT ION (PPO) PLATI NUM BLUE COMP Jul 22, 2016 [id number] [phone] JACK COHN PATIENT [place] PREFERRED PROVIDER ORGANIZAT ION (PPO) PLATI NUM BLUE COMP Jul 22, 2016 [id number] [phone] JACK COHN PATIENT [place] [facility] (WNR) MEDICARE ADVANTAGE [facility] (WNR) Jul 22, 2016 [id number] [phone] JACK COHN PATIENT [place] [facility] (WNR) MEDICARE ADVANTAGE [facility] (WNR) Jul 22, 2016 [id number] [phone] JACK COHN PATIENT MEDICARE (WNR) MEDICARE (M) PART A November 19, 2004 PART A [id number] JACK COHN PATIENT MEDICARE (WNR) MEDICARE (M) PART B November 19, 2004 PART B [id number] [phone] [id number] GARCÍA PATIENT PRIME THERAPEUTI CS RX PRESCRIPT ION BCBS [facility] Jul 22, 2016 [id number] [phone] JACK COHN PATIENT Selected Encounter This section includes the information on record at [place] for the Encounter. Date/Time Encounter Type Encounter Description Reason Provider Source December 19, 2023 10:15 AM OFFICE O/P EST MOD 30 MIN PRIMARY CARE/MEDICINE ICD-10-CM I10 Essential (primary) hypertension BRINA BIRMINGHAM IHE Encounter Template Text not used by [place] Assessments - Encounter Diagnoses This section includes the primary and secondary diagnoses documented for the Encounter. Date/Time Primary/Secondary Diagnosis Diagnosis Name Provider Source December 19, 2023 03:21 PM PRIMARY Essential (primary) hypertension BRINA BIRMINGHAM [facility] December 19, 2023 03:21 PM SECONDARY Iron deficiency anemia, unspecified BRINA BIRMINGHAM [facility] December 19, 2023 03:21 PM SECONDARY Paroxysmal atrial fibrillation BRINA BIRMINGHAM [facility] December 19, 2023 03:21 PM SECONDARY Venous insufficiency (chronic) (peripheral) BRINA BIRMINGHAM [facility] Plan of Treatment: Future Appointments (+ 6 months) and Future Tests (+/- 45 days) The Plan of Treatment section includes future care activities for the patient from all [place] treatmentfacilities. This section includes future appointments and future orders which are active, pending or scheduled. Future Appointments This section includes appointments that were scheduled to occur 6 months from the date of the Encounter, up to a maximum of 20 appointments. The data comes from all [place] treatment facilities. Appointment Date/Time Appointment Type Appointme nt Facility Name Jan 06, 2024 09:30 AM AMBULATORY - NONE [facility] Jan 07, 2024 09:00 AM AMBULATORY - MEDICINE [facility] Jan 30, 2024 07:45 AM AMBULATORY - SURGERY ADAN [facility] Apr 14, 2024 11:59 AM AMBULATORY - MEDICINE [facility] Lab Results: +/- 30 days of the encounter This section includes the Chemistry and Hematology Lab Results on record with [place] for the patient. Radiology Reports and Pathology Reports are provided separately, in subsequent sections. Lab Results This section contains the Chemistry/Hematology Results that were resulted 30 days before or 30 daysafter the date of the Encounter. Date/Time Source Result Type Result - Unit Interpretation Reference Range Comment Jan 06, 2024 09:29 AM [facility] BASIC METABOLIC PANEL+MG Specimen Type: PLASMA No comment entered. Ordering Provider: BRINA BIRMINGHAM Report Released Date/Time: December 19, 2023 12:41 PM Reporting Lab: [facility] [id number] Performing Lab: [facility] [id number] CREATININE 0.8 mg/dL 0.7-1.2 UREA NITROGEN 13 mg/dL 8-26 GLUCOSE 95 mg/dL 70-100 SODIUM 141 mmol/L 136-145 POTASSIUM 3.8 mmol/L 3.5-5.1 CHLORIDE 107 mmol/L 98-107 CO2 26 mmol/L 22-29 CALCIUM 9.5 mg/dL 8.4-10.2 MAGNESIUM 2.0 mg/dL 1.6-2.6 ANION GAP 8 mmol/L 5-15 .CREAT EGFR(CKD-EPI) 88 >60 December 19, 2023 09:17 AM [facility] CBC Specimen Type: BLOOD No comment entered. Ordering Provider: BRINA BIRMINGHAM Report Released Date/Time: December 18, 2023 02:26 PM Reporting Lab: [facility] [id number] Performing Lab: [facility] [id number] WBC 6.74 10*3/uL 4.0-11.0 RBC 4.45 10*6/uL L 4.6-6.2 HGB 11.6 g/dL L 13.5-17.9 HCT 36.7 L 41-54 MCV 82.5 fL 80-100 MCH 26.1 pg L 27-33 MCHC 31.6 g/dL L 32.0-37.5 PLT 188 10*3/uL 150-400 MPV 11.1 fL H 7.4-10.4 RDW 13.4 11.5-14.5 December 19, 2023 09:17 AM [facility] LIPID PANEL,NON-FASTING Specimen Type: PLASMA No comment entered. Ordering Provider: BRINA BIRMINGHAM Report Released Date/Time: December 18, 2023 02:26 PM Reporting Lab: [facility] [id number] Performing Lab: [facility] [id number] CHOLESTEROL 109 mg/dL <199 .HDL 43 mg/dL >40 LDL CALCULATION 45 mg/dL <99 VLDL CALCULATION 21 mg/dL <29 NON HDL CHOLESTEROL 66 mg/dL <129 TRIG(NON FASTING) 107 mg/dL <149 December 19, 2023 09:17 AM [facility] B 12 Specimen Type: SERUM No comment entered. Ordering Provider: BRINA BIRMINGHAM Report Released Date/Time: December 18, 2023 02:26 PM Reporting Lab: [facility] [id number] Performing Lab: [facility] [id number] B 12 304 pg/mL 213-816 December 19, 2023 09:17 AM [facility] COMPREHENSIVE METABOLIC PANEL+MG Specimen Type: PLASMA No comment entered. Ordering Provider: BRINA BIRMINGHAM Report Released Date/Time: December 18, 2023 02:26 PM Reporting Lab: [facility] [id number] Performing Lab: [facility] [address] CREATININE 0.8 mg/dL 0.7-1.2 UREA NITROGEN 11 [...] 88 >60 December 19, 2023 09:17 AM [facility] FOLATE Specimen Type: SERUM No comment entered. Ordering Provider: BRINA BIRMINGHAM Report Released Date/Time: December 18, 2023 02:26 PM Reporting Lab: [facility] [id number] Performing Lab: [facility] [address] FOLATE 8.3 ng/mL >7.0 December 19, 2023 09:17 AM [facility] IRON GROUP Specimen Type: SERUM No comment entered. Ordering Provider: BRINA BIRMINGHAM Report Released Date/Time: December 19, 2023 12:41 PM Reporting Lab: [facility] [id number] Performing Lab: [facility] [id number] IRON 34 ug/dL L 65-175 TIBC,CALCULATED 364 [...] Source December 19, 2023 12:35 PM 133/75 [facility] December 19, 2023 10:04 AM 97.2 58 143/75 16 92 0 290.5 40 [facility] Social History: Smoking Status (Most current) and Tobacco Use (All prior to encounter date) This section includes the most current, and the historical, smoking and tobacco- related health factors from the [facility] where the Encounter took place. Current Smoking Status This section includes the most current smoking, or tobacco-related health factor, from the [place] facility where the Encounter took place. Date/Time Current Smoking Status Comment Facil ity Apr 23, 2023 01:00 PM VA-TOBACCO NEVER USED [facility] Tobacco Use History This section includes a history of the smoking, or tobacco-related health factors, that were collected on or before the date of the Encounter. The data comes from the [place] facility where the Encounter took place. Date/Time Smoking Status/Tobacco Use Comment F acility Apr 24, 2022 09:43 AM VA-TOBACCO FORMER USER [facility] Apr 24, 2022 09:43 AM VA-TOBACCO QUIT 15 YRS OR MORE [facility] Feb 23, 2021 11:00 AM VA-TOBACCO FORMER USER [facility] Feb 23, 2021 11:00 AM VA-TOBACCO QUIT 15 YRS OR MORE [facility] Aug 04, 2019 03:40 PM VA-TOBACCO FORMER USER [facility] Aug 04, 2019 03:40 PM VA-TOBACCO QUIT 15 YRS OR MORE [facility] Jul 28, 2018 10:03 AM VA-TOBACCO FORMER USER [facility] Jul 28, 2018 10:03 AM VA-TOBACCO QUIT 15 YRS OR MORE [facility] Sep 12, 2017 09:15 AM FORMER TOBACCO USE >1Y <7Y [facility] November 30, 2016 07:51 AM FORMER TOBACCO USER 7Y OR GREATE R [facility] Sep 19, 2015 11:18 AM FORMER TOBACCO USE >1Y <7Y [facility] December 03, 2014 07:58 AM FORMER TOBACCO USER 7Y OR GREATE R [facility] December 01, 2013 07:39 AM LIFETIME NON-TOBACCO USER [facility] May 07, 2012 07:53 AM FORMER TOBACCO USE >1Y <7Y [facility] Aug 01, 2011 08:59 AM FORMER TOBACCO USE >1Y <7Y [facility] Jul 24, 2010 07:49 AM CURRENT TOBACCO USER [facility] Aug 03, 2009 10:18 AM CURRENT TOBACCO USER [facility] Aug 23, 2008 07:54 AM CURRENT TOBACCO USER [facility] Aug 15, 2007 07:52 AM CURRENT TOBACCO USER [facility] 2006 07:43 AM FORMER TOBACCO USE >1Y <7Y [facility] Advance Directives: All historical and current Section Date Range: From patient's date of to the date document was created. This section includes ALL of a patient's completed or amended [place] Advance and Rescinded Directives. The entries below indicate that a directive exists for the patient, but an actual copy is not included with this document. The data comes from all [place] facilities. Date Advance Directives Provider Source Mar 20, 2023 ADVANCE DIRECTIVE DISCUSSION ELY BERTRAND [facility] Mar 20, 2023 ADVANCE DIRECTIVE ELY BERTRAND [facility] Aug 02, 2003 ADVANCE DIRECTIVE SHANDA CESAR [facility] Encounter Notes: All associated encounter notes [...] Thank you! /chadwick/ BRINA BIRMINGHAM MD PHYSICIAN, [facility] Signed: 12/19/2023 15:23 Receipt Acknowledged By: 12/19/2023 [...] daily -Continue DOAC #[facility] Now living in [facility] -- [facility]. #Low back pain with MRI and [...] months Brina Birmingham MD General Internal Medicine [facility] A total of 35 minutes was spent [...] Benign prostatic hyperplasia 2. Hypertension (SNOMED CT 90699713) 3. Gastroesophageal reflux disease - Also known hiatal hernia 4. Morbid obesity 5. 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 Osteoarthritis of hip - was evaluated by ortho 09/2017 and deferred surgery given weight 7. Mild cognitive impairment 8. Lumbosacral Radiculopathy (SCT 2823524) - At one point neurosurgery was planning for L2-S1 fusion with L3-5 laminectomies but this was cancelled 10/2021. - Has had improvement with duloxetine and use of Rollator 9. Depression (SCT 87070219) 10. Nocturia - Has long history of this, and previously followed with urology, last seeing them 2018 - Prior UA has been normal - Suspect largely driven by BPH +/- MEGHA 11. Obstructive sleep apnea syndrome - Suspected by pulm 2022, watchPAT pending 12. Paroxysmal Atrial Fibrillation (SCT 772218675) - Dx 04/2023 following CVA 01/2023 - Started apixaban 05/2023 13. Long-Term Current Use of Anticoagulant (SCT 348590795) 14. Venous insufficiency of leg - per [...] were also reviewed/updated for accuracy. Allergies/ADR from [facility] may not display in CPRS. Use JLV MRT5 - Allergies/ADRs FACILITY ALLERGY/ADR -------- No Remote Allergy/ADR Data available for this patient [facility] [facility] MORPHINE Active and Recently Outpatient Medications [...] DRY EYES 4) DRESS,MEPILEX BORDER FLEX 4X4IN #[id number] ACTIVE Issu:05-02-23 Qty: 30 for 30 days [...] ventricular segments. /chadwick/ BRINA BIRMINGHAM MD PHYSICIAN, [facility] Signed: 12/19/2023 15:21 BRINA BIRMINGHAM [facility] December 19, 2023 12:47 PM ADMINISTRATIVE NOTE: [...] provided to the patient is available in [employer]. SCANNED DOCUMENT SIGNATURE NOT REQUIRED Electronically Filed: 12/19/2023 by: BRINA BIRMINGHAM MD PHYSICIAN, [facility] BRINA BIRMINGHAM [facility] December 19, 2023 10:15 AM INTERNAL MEDICINE [...] daily -Continue DOAC #[facility] Now living in [facility] -- [facility]. #Low back pain with MRI and [...] months Brina Birmingham MD General Internal Medicine [facility] A total of 35 minutes was spent [...] Benign prostatic hyperplasia 2. Hypertension (SNOMED CT 97673197) 3. Gastroesophageal reflux disease - Also known hiatal hernia 4. Morbid obesity 5. 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 Osteoarthritis of hip - was evaluated by ortho 09/2017 and deferred surgery given weight 7. Mild cognitive impairment 8. Lumbosacral Radiculopathy (SCT 4715419) - At one point neurosurgery was planning for L2-S1 fusion with L3-5 laminectomies but this was cancelled 10/2021. - Has had improvement with duloxetine and use of Rollator 9. Depression (SCT 87673895) 10. Nocturia - Has long history of this, and previously followed with urology, last seeing them 2018 - Prior UA has been normal - Suspect largely driven by BPH +/- MEGHA 11. Obstructive sleep apnea syndrome - Suspected by pulm 2022, watchPAT pending 12. Paroxysmal Atrial Fibrillation (SCT 154388041) - Dx 04/2023 following CVA 01/2023 - Started apixaban 05/2023 13. Long-Term Current Use of Anticoagulant ([facility] [id number]) 14. Venous insufficiency of leg - per [...] Remote Allergy/ADR Data available for this patient [facility] MORPHINE Active and Recently Outpatient [...] DRY EYES 4) DRESS,MEPILEX BORDER FLEX 4X4IN #[id number] ACTIVE Issu:05-02-23 Qty: 30 for 30 days [...] ventricular segments. /chadwick/ BRINA BIRMINGHAM MD PHYSICIAN, [facility] Signed: 12/19/2023 15:21 12/19/2023 ADDENDUM STATUS: COMPLETED Please let the patient know I was able to review the iron panel, and as I discussed with the patient and his daughter, this confirms the iron deficiency. Please let him know I've ordered the GI consult and iron supplement as we talked about earlier. Thank you! /ocrry BIRMINGHAM MD PHYSICIAN, [facility] Signed: 12/19/2023 15:23 Receipt Acknowledged By: 12/19/2023 15:38 /corry FLANNERY RN REGISTERED NURSE 12/19/2023 ADDENDUM STATUS: COMPLETED Called and spoke with Jennyfer's daughter Raine and shared this information. She is agreeable. She was told GI will reach out for scheduling. Park Superintendent shared that the iron will be mailed out and to read instructions as it's every other day dosing. /corry FLANNERY RN REGISTERED NURSE Signed: 12/19/2023 15:39 BRINA BIRMINGHAM [facility] December 19, 2023 10:05 AM INTERNAL MEDICINE [...] [place] LPN Signed: 12/19/2023 10:07 [place] [facility]
--- OUTSIDE RECORDS SUMMARY | 2024-04-18 13:53 | XMS_ITS | Encounter Summary ---
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 Name Role Phone BRINA [place] [...] PLATI LULA BLUE COMP Jul 22, 2016 [id number] [phone] JACK COHN PATIENT ANTHEM [employer] [place] PREFERRED PROVIDER ORGANIZAT ION (PPO) PLATI NUM BLUE COMP Jul 22, 2016 [id number] [phone] JACK COHN PATIENT ANTHEM [employer] PREFERRED PROVIDER ORGANIZAT ION (PPO) PLATI NUM BLUE COMP Jul 22, 2016 [id number] [phone] JACK COHN PATIENT [place] PREFERRED PROVIDER ORGANIZAT ION (PPO) [place] [employer] BLUE COMP Jul 22, 2016 [id number] [phone] JACK COHN PATIENT BCBS [facility] (WNR) MEDICARE ADVANTAGE [employer] (WNR) Jul 22, 2016 [id number] [phone] JACK COHN PATIENT BCBS [place] [employer] (WNR) MEDICARE ADVANTAGE [employer] (WNR) Jul 22, 2016 [id number] [phone] JACK COHN PATIENT MEDICARE (WNR) MEDICARE () PART A November 19, 2004 PART A [id number] [phone] JACK COHN PATIENT MEDICARE (WNR) MEDICARE (M) PART B November 19, 2004 PART B [id number] [phone] JACK COHN PATIENT PRIME THERAPEUTI CS RX PRESCRIPT ION BCBS [facility] Jul 22, 2016 [id number] [phone] JACK COHN PATIENT Selected Encounter This section includes the information on record at [place] for the Encounter. Date/Time Encounter Type Encounter Description Reason Provider Source December 20, 2023 10:49 AM QNHP OL DIG ASSMT&MGMT 11 CLINICAL PHARMACY ICD-10-CM Z79.01 halfway (current) use of anticoagulants STACY GREGG [facility] Encounter Template Text not used by [place] Assessments - Encounter Diagnoses This section includes the primary and secondary diagnoses documented for the Encounter. Date/Time Primary/Secondary Diagnosis Diagnosis Name Provider Source December 20, 2023 11:01 AM PRIMARY halfway (current) use of anticoagulants STACY GREGG [facility] December 20, 2023 11:01 AM SECONDARY Encounter for therapeutic drug level monitoring STACY GREGG [facility] December 20, 2023 11:01 AM SECONDARY Unspecified atrial fibrillation STACY GREGG [facility] Plan of Treatment: Future Appointments (+ 6 months) and Future Tests (+/- 45 days) The Plan of Treatment section includes future care activities for the patient from all [place] treatmentfacilities. This section includes future appointments and future orders which are active, pending or scheduled. Future Appointments This section includes appointments that were scheduled to occur 6 months from the date of the Encounter, up to a maximum of 20 appointments. The data comes from all [place] treatment facilities. Appointment Date/Time Appointment Type Appointme nt Facility Name Jan 06, 2024 09:30 AM AMBULATORY - NONE [facility] Jan 07, 2024 09:00 AM AMBULATORY - MEDICINE [facility] Jan 30, 2024 07:45 AM AMBULATORY - SURGERY AD[facility] Apr 14, 2024 11:59 AM AMBULATORY - MEDICINE [facility] Lab Results: +/- 30 days of the encounter This section includes the Chemistry and Hematology Lab Results on record with [place] for the patient. Radiology Reports and Pathology Reports are provided separately, in subsequent sections. Lab Results This section contains the Chemistry/Hematology Results that were resulted 30 days before or 30 daysafter the date of the Encounter. Date/Time Source Result Type Result - Unit Interpretation Reference Range Comment Jan 06, 2024 09:29 AM [facility] BASIC METABOLIC PANEL+MG Specimen Type: PLASMA No comment entered. Ordering Provider: BRINA [place] Report Released Date/Time: December 19, 2023 12:41 PM Reporting Lab: [facility] [id number] Performing Lab: [facility] [id number] CREATININE 0.8 mg/dL 0.7-1.2 UREA NITROGEN 13 mg/dL 8-26 GLUCOSE 95 mg/dL 70-100 SODIUM 141 mmol/L 136-145 POTASSIUM 3.8 mmol/L 3.5-5.1 CHLORIDE 107 mmol/L 98-107 CO2 26 mmol/L 22-29 CALCIUM 9.5 mg/dL 8.4-10.2 MAGNESIUM 2.0 mg/dL 1.6-2.6 ANION GAP 8 mmol/L 5-15 .CREAT EGFR(CKD-EPI) 88 >60 December 19, 2023 09:17 AM [facility] CBC Specimen Type: BLOOD No comment entered. Ordering Provider: BRINA [place] Report Released Date/Time: December 18, 2023 02:26 PM Reporting Lab: [facility] [id number] Performing Lab: [facility] [id number] WBC 6.74 10*3/uL 4.0-11.0 RBC 4.45 10*6/uL L 4.6-6.2 HGB 11.6 g/dL L 13.5-17.9 HCT 36.7 L 41-54 MCV 82.5 fL 80-100 MCH 26.1 pg L 27-33 MCHC 31.6 g/dL L 32.0-37.5 PLT 188 10*3/uL 150-400 MPV 11.1 fL H 7.4-10.4 RDW 13.4 11.5-14.5 December 19, 2023 09:17 AM [facility] LIPID PANEL,NON-FASTING Specimen Type: PLASMA No comment entered. Ordering Provider: BRINA [place] Report Released Date/Time: December 18, 2023 02:26 PM Reporting Lab: [facility] [id number] Performing Lab: [facility] [address] CHOLESTEROL 109 mg/dL <199 .HDL 43 mg/dL >40 LDL CALCULATION 45 mg/dL <99 VLDL CALCULATION 21 mg/dL <29 NON HDL CHOLESTEROL 66 mg/dL <129 TRIG(NON FASTING) 107 mg/dL <149 December 19, 2023 09:17 AM [facility] B 12 Specimen Type: SERUM No comment entered. Ordering Provider: BRINA [place] Report Released Date/Time: December 18, 2023 02:26 PM Reporting Lab: [facility] [id number] Performing Lab: [facility] [phone] B 12 304 pg/mL 213-816 December 19, 2023 09:17 AM [facility] COMPREHENSIVE METABOLIC PANEL+MG Specimen Type: PLASMA No comment entered. Ordering Provider: BRINA [place] Report Released Date/Time: December 18, 2023 02:26 PM Reporting Lab: [facility] [phone] Performing Lab: [facility] [phone] CREATININE 0.8 mg/dL 0.7-1.2 UREA NITROGEN 11 [...] December 19, 2023 09:17 AM [facility] FOLATE Specimen Type: SERUM No comment entered. Ordering Provider: BRINA [place] Report Released Date/Time: December 18, 2023 02:26 PM Reporting Lab: [facility] [id number] Performing Lab: [facility] [id number] FOLATE 8.3 ng/mL >7.0 December 19, 2023 09:17 AM [facility] IRON GROUP Specimen Type: SERUM No comment entered. Ordering Provider: BRINA [place] Report Released Date/Time: December 19, 2023 12:41 PM Reporting Lab: [facility] [phone] Performing Lab: [facility] [phone] IRON 34 ug/dL L 65-175 TIBC,CALCULATED 364 ug/dL 250-425 FERRITIN 11.9 ng/mL L 21.8-274.7 IRON SATURATION 9 L 20-50 TRANSFERRIN 291 mg/dL 163-382 Social History: Smoking Status (Most current) and Tobacco Use (All prior to encounter date) This section includes the most current, and the historical, smoking and tobacco- related health factors from the [facility] where the Encounter took place. Current Smoking Status This section includes the most current smoking, or tobacco-related health factor, from the [place] facility where the Encounter took place. Date/Time Current Smoking Status Comment Leonard ity Apr 23, 2023 01:00 PM VA-TOBACCO NEVER USED [facility] Tobacco Use History This section includes a history of the smoking, or tobacco-related health factors, that were collected on or before the date of the Encounter. The data comes from the [place] facility where the Encounter took place. Date/Time Smoking Status/Tobacco Use Comment F acility Apr 24, 2022 09:43 AM VA-TOBACCO FORMER USER [facility] Apr 24, 2022 09:43 AM VA-TOBACCO QUIT 15 YRS OR MORE [facility] Feb 23, 2021 11:00 AM VA-TOBACCO FORMER USER [facility] Feb 23, 2021 11:00 AM VA-TOBACCO QUIT 15 YRS OR MORE [facility] Aug 04, 2019 03:40 PM VA-TOBACCO FORMER USER [facility] Aug 04, 2019 03:40 PM VA-TOBACCO QUIT 15 YRS OR MORE [facility] Jul 28, 2018 10:03 AM VA-TOBACCO FORMER USER [facility] Jul 28, 2018 10:03 AM VA-TOBACCO QUIT 15 YRS OR MORE [facility] Sep 12, 2017 09:15 AM FORMER TOBACCO USE >1Y <7Y [facility] November 30, 2016 07:51 AM FORMER TOBACCO USER 7Y OR GREATE R [facility] Sep 19, 2015 11:18 AM FORMER TOBACCO USE >1Y <7Y [facility] December 03, 2014 07:58 AM FORMER TOBACCO USER 7Y OR GREATE R [facility] December 01, 2013 07:39 AM LIFETIME NON-TOBACCO USER [facility] May 07, 2012 07:53 AM FORMER TOBACCO USE >1Y <7Y [facility] Aug 01, 2011 08:59 AM FORMER TOBACCO USE >1Y <7Y [facility] Jul 24, 2010 07:49 AM CURRENT TOBACCO USER [facility] Aug 03, 2009 10:18 AM CURRENT TOBACCO USER [facility] Aug 23, 2008 07:54 AM CURRENT TOBACCO USER [facility] Aug 15, 2007 07:52 AM CURRENT TOBACCO USER [facility] 2006 07:43 AM FORMER TOBACCO USE >1Y <7Y [facility] Advance Directives: All historical and current Section Date Range: From patient's date of to the date document was created. This section includes ALL of a patient's completed or amended [place] Advance and Rescinded Directives. The entries below indicate that a directive exists for the patient, but an actual copy is not included with this document. The data comes from all [place] facilities. Date Advance Directives Provider Source Mar 20, 2023 ADVANCE DIRECTIVE DISCUSSION ELY BERTRAND [facility] Mar 20, 2023 ADVANCE DIRECTIVE ELY BERTRAND [facility] Aug 02, 2003 ADVANCE DIRECTIVE SHANDA C[facility] Encounter Notes: All associated encounter notes This [...] (01/2023) - Hx cognitive impairment, lives at [facility] and has [facility] help - Prior major bleeds: None - Prior anticoagulants: None - Start date: 05/2023 - Anticipated duration: Indefinite - [id number] = 5 (age +2, CVA +2, HTN) = moderate risk - HASBLED = 2 (age, CVA) = moderate risk - Notes: - Best to speak with daughter (Raine Bowens at [phone]) - Care Coordination: - Patient resides at [facility] who are currently helping set-up and administer meds (phone: [phone], fax: [phone]) - DEAN OF STUDENT SERVICES: [facility] (phone: [phone], fax: [phone]) Per prior notes: YESIKA Marlow (phone: [phone]) will be starting w/ pt and possibly [...] CLINICAL PHARMACIST Signed: 12/20/2023 11:01 ALIN GREGG [facility]
--- OUTSIDE RECORDS SUMMARY | 2024-04-18 13:54 | XMS_ITS | Encounter Summary ---
Author Name [facility] [place] [facility] Address [address] [place] [address] Care Team Providers Care [employer] Inspector Name Role Phone BRINA BIRMINGHAM Primary Care [...] PLATI LULA BLUE COMP Jul 22, 2016 [id number] [phone] JACK COHN PATIENT ANTHEM [place] PREFERRED PROVIDER ORGANIZAT ION (PPO) PLATI NUM BLUE COMP Jul 22, [id number] [phone] JACK COHN PATIENT ANTHEM [place] PREFERRED PROVIDER ORGANIZAT ION (PPO) PLATI NUM BLUE COMP Jul 22, 2016 [id number] [phone] JACK COHN PATIENT [place] PREFERRED PROVIDER ORGANIZAT ION (PPO) PLATI NUM BLUE COMP Jul 22, 2016 [id number] [phone] JACK COHN PATIENT BCBS [facility] (WNR) MEDICARE ADVANTAGE [facility] (WNR) Jul 22, 2016 [id number] [phone] JACK COHN PATIENT BCBS [facility] (WNR) MEDICARE ADVANTAGE [facility] (WNR) Jul 22, 2016 [id number] [phone] JACK COHN PATIENT MEDICARE (WNR) MEDICARE (M) PART A November 19, 2004 PART A [id number] [phone] JACK COHN PATIENT MEDICARE (WNR) MEDICARE (M) PART B November 19, 2004 PART B [id number] JACK COHN PATIENT PRIME THERAPEUTI CS RX PRESCRIPT ION BCBS [facility] Jul 22, 2016 [id number] [phone] JACK COHN PATIENT Selected Encounter This section includes the information on record at [place] for the Encounter. Date/Time Encounter Type Encounter Description Reason Pro vider Source Apr 17, 2024 02:05 PM Outpatient Encounter TELEPHONE TRIAGE IHE Encounter Template Text not used by [facility] Lab Results: +/- 30 days of the encounter This section includes the Chemistry and Hematology Lab Results on record with [place] for the patient. Radiology Reports and Pathology Reports are provided separately, in subsequent sections. Lab Results This section contains the Chemistry/Hematology Results that were resulted 30 days before or 30 daysafter the date of the Encounter. Date/Time Source Result Type Result - Unit Interpretation Reference Range Comment Apr 14, 2024 01:43 PM [facility] URINALYSIS Specimen Type: URINE No comment entered. Ordering Provider: MARIO VALDES EA Report Released Date/Time: Apr 14, 2024 12:22 PM Reporting Lab: [facility] [id number] Performing Lab: [facility] [id number] URINE COLOR LIGHT-YELLOW SPECIFIC GRAVITY 1.014 1.003-1.035 URINE BILIRUBIN NEGATIVE NEGATIVE URINE KETONES NEGATIVE NEGATIVE URINE GLUCOSE NEGATIVE mg/dL URINE PROTEIN NEGATIVE mg/dL URINE PH 7.0 5.0-8.0 URINE WBC/HPF NONE SEEN /[HPF] 0-7 URINE BACTERIA NONE SEEN URINE RBC/HPF 2 /[HPF] 0-3 APPEARANCE CLEAR SQUAMOUS EPITHELIAL <1 /[HPF] URINE BLOOD NEGATIVE NEGATIVE URINE NITRITE NEGATIVE NEGATIVE LEUKOCYTE ESTERASE NEGATIVE NEGATIVE Apr 14, 2024 12:23 PM [facility] EXTRA BLUE TUBE Specimen Type: PLASMA No comment entered. Ordering Provider: MARIO VALDES EA Report Released Date/Time: Apr 14, 2024 12:32 PM Reporting Lab: [facility] [id number] Performing Lab: [facility] [id number] EXTRA BLUE TUBE RECEIVED Apr 14, 2024 12:23 PM [facility] TROPONIN I, HS Specimen Type: PLASMA No comment entered. Ordering Provider: MARIO VALDES EA Report Released Date/Time: Apr 14, 2024 12:22 PM Reporting Lab: [facility] [phone] Performing Lab: [facility] [phone] TROPONIN I, HS 6 <35 Apr 14, 2024 12:23 PM [facility] EXTRA GOLD GEL TUBE Specimen Type: SERUM No comment entered. Ordering Provider: MARIO VALDES EA Report Released Date/Time: Apr 14, 2024 12:32 PM Reporting Lab: [facility] [id number] Performing Lab: [facility] [id number] EXTRA GOLD GEL TUBE RECEIVED Apr 14, 2024 12:23 PM [facility] BASIC METABOLIC PANEL+MG Specimen Type: PLASMA No comment entered. Ordering Provider: MARIO VALDES EA Report Released Date/Time: Apr 14, 2024 12:22 PM Reporting Lab: [facility] [phone] Performing Lab: [facility] [phone] CREATININE 0.8 mg/dL 0.7-1.2 UREA NITROGEN 13 mg/dL 8-26 GLUCOSE 89 mg/dL 70-100 SODIUM 142 mmol/L 136-145 POTASSIUM 4.1 mmol/L 3.5-5.1 CHLORIDE 108 mmol/L H 98-107 CO2 28 mmol/L 22-29 CALCIUM 9.4 mg/dL 8.4-10.2 MAGNESIUM 2.0 mg/dL 1.6-2.6 ANION GAP 6 mmol/L 5-15 .CREAT EGFR(CKD-EPI ) 88 >60 Apr 14, 2024 12:23 PM [facility] CBC & DIFF Specimen Type: BLOOD Comment: Automated Differential Performed Ordering Provider: MARIO VALDES EA Report Released Date/Time: Apr 14, 2024 12:22 PM Reporting Lab: [facility] [id number] Performing Lab: [facility] [id number] WBC 8.3 4.0-11.0 RBC 4.76 4.60-6.20 HGB 12.1 g/dL L 13.5-17.9 HCT 38.7 L 41-54 MCV 81.3 fL 80-100 MCH 25.4 pg L 27-33 MCHC 31.3 g/dL L 32.0-37.5 PLT 189 150-400 MPV 11.5 fL 9.1-13.0 NEUT 72.9 40.0-80.0 LYMPHS 14.5 L 15.0-45.0 MONO 9.9 2.0-12.0 EOSINO 1.8 0.0-6.0 BASO 0.5 0.0-2.0 RDW 15.1 H 11.5-14.5 ABS LYMPH 1.2 1.0-4.0 ABS MONO 0.8 0.1-1.0 ABS NEUT 6.0 2.0-7.7 ABS EOS 0.2 0-0.5 ABS BASO 0.0 0-0.2 IG(META,MYEL O,PRO) 0.4 ABS IMMATURE GRAN 0.0 0-0.1 Social History: Smoking Status (Most current) and Tobacco Use (All prior to encounter date) This section includes the most current, and the historical, smoking and tobacco- related health factors from the [place] facility where the Encounter took place. Current Smoking Status This section includes the most current smoking, or tobacco-related health factor, from the [place] facility where the Encounter took place. Date/Time Current Smoking Status Comment Facil ity Apr 23, 2023 01:00 PM VA-TOBACCO NEVER USED [facility] Tobacco Use History This section includes a history of the smoking, or tobacco-related health factors, that were collected on or before the date of the Encounter. The data comes from the [place] facility where the Encounter took place. Date/Time [...] ALL of a patient's completed or amended [place] Advance and Rescinded Directives. The entries below indicate that a directive exists for the patient, but an actual copy is not included with this document. The data comes from all [place] facilities. Date Advance Directives Provider Source Mar 20, 2023 ADVANCE DIRECTIVE DISCUSSION ELY BERTRAND [facility] Mar 20, 2023 ADVANCE DIRECTIVE ELY BERTRAND [facility] Aug 02, 2003 ADVANCE DIRECTIVE SHANDA CESAR [facility] Radiology Reports: +/- 30 days of [...] the Encounter. The data comes from all [place] treatment facilities. Date/Time Radiology Report Provider Source Apr 14, 2024 12:45 PM KNEE LEFT 3 VIEWS: SHANTANU COHN [id number] -1940 M Exm Date: APR 14, 2024@12:45 Req Phys: GERMAIN VALDES Loc: [facility] EMERGENCY DEPT WALK-IN (Re Img Loc: MAIN X-RAY Service: [place] [address] (Case [id number] COMPLETE) KNEE LEFT 3 VIEWS (RAD Detailed) CPT:39344 Proc Modifiers : STANDING LEFT Reason for Study: knee pain Clinical History: Weight-Bearing [place] IS NOT under investigation for COVID-19 or is COVID-19 negative falls, pain Responsible provider name and phone number to notify for critical findings if other than user placing the order and pager listed below: User placing orders pager: [phone] LAST CREATININE 0.8 (01/06/24) Report Status: Verified Date Reported: APR 14, 2024 Date Verified: APR 14, 2024 [facility] E-Sig:/ES/LEODAN ADAMS MD Report: X-RAY EXAM OF bilateral knees, three views INDICATION: Reason for Study: falls Weight-Bearing [place] IS NOT under investigation for COVID-19 or is COVID-19 negative knee pain, falls Responsible provider name and phone number to notify for critical findings if other than user placing the order and pager listed below: User placing orders pager: [phone] LAST CREATININE 0.8 (01/06/24) COMPARISON: None available Impression: FINDINGS/IMPRESSION: Right knee: There is a total knee arthroplasty device in good position. No evidence to suggest loosening. There is a small suprapatellar effusion. No evidence of an acute osseous abnormality. Left knee: There is a total knee arthroplasty device in good position. No evidence to suggest loosening. There is a small suprapatellar effusion. No evidence of an acute osseous abnormality. Primary Interpreting Staff: LEODAN ADAMS MD, RADIOLOGIST ([facility]) /LEODAN COTE [facility] Apr 14, 2024 12:45 PM CHEST 2 VIEWS PA A ND LAT: SHANTANU COHN [id number] -1940 M Exm Date: APR 14, 2024@12:45 Req Phys: GERMAIN VALDES Pat Loc: [facility] EMERGENCY DEPT WALK-IN (Re Img Loc: MAIN X-RAY Service: [place] [address] (Case [id number] COMPLETE) CHEST 2 VIEWS PA AND LAT (RAD Detailed) CPT:53043 Reason for Study: weakness Clinical History: [place] IS NOT under investigation for COVID-19 or is COVID-19 negative weakness Responsible provider name and phone number to notify for critical findings if other than user placing the order and pager listed below: User placing orders pager: [phone] LAST CREATININE 0.8 (01/06/24) Report Status: Verified Date Reported: APR 14, 2024 Date Verified: APR 14, 2024 [facility] E-Sig:/ES/ISAURA CAMARENA MD Report: EXAMINATION: CHEST 2 VIEWS PA AND LAT 04/14/2024 12:45 PM INDICATION: weakness Impression: Shallow inspiration. Heart size is mildly prominent likely due to the shallow inspiration. Slight prominence of the pulmonary vasculature. No definite pulmonary infiltrate or pleural effusions. Bilateral TSA's. Primary Interpreting Staff: ISAURA CAMARENA MD, RADIOLOGIST ([facility]) /ISAURA LAGOS [facility] Apr 14, 2024 12:45 PM KNEE RIGHT 3 VIEWS : SHANTANU COHN [id number] -1940 M Exm Date: APR 14, 2024@12:45 Req Phys: GERMAIN VALDES Loc: [facility] EMERGENCY DEPT WALK-IN (Re Img Loc: MAIN X-RAY Service: [place] [address] (Case [id number] COMPLETE) KNEE RIGHT 3 VIEWS (RAD Detailed) CPT:13810 Proc Modifiers : STANDING RIGHT Reason for Study: falls Clinical History: Weight-Bearing IS NOT under investigation for COVID-19 or is COVID-19 negative knee pain, falls Responsible provider name and phone number to notify for critical findings if other than user placing the order and pager listed below: User placing orders pager: [phone] LAST CREATININE 0.8 (01/06/24) Report Status: Verified Date Reported: APR 14, 2024 Date Verified: APR 14, 2024 [facility] E-Sig:/ES/LEODAN ADAMS MD Report: X-RAY EXAM OF bilateral knees, three views INDICATION: Reason for Study: falls Weight-Bearing IS NOT under investigation for COVID-19 or is COVID-19 negative knee pain, falls Responsible provider name and phone number to notify for critical findings if other than user placing the order and pager listed below: User placing orders pager: [phone] LAST CREATININE 0.8 (01/06/24) COMPARISON: None available Impression: FINDINGS/IMPRESSION: Right knee: There is a total knee arthroplasty device in good position. No evidence to suggest loosening. There is a small suprapatellar effusion. No evidence of an acute osseous abnormality. Left knee: There is a total knee arthroplasty device in good position. No evidence to suggest loosening. There is a small suprapatellar effusion. No evidence of an acute osseous abnormality. Primary Interpreting Staff: LEODAN ADAMS MD, RADIOLOGIST ([facility]) /LEODAN COTE [facility] Apr 14, 2024 12:[address] HEAD/BRAIN W/O CONTRAST: SHANTANU COHN [id number] -1940 M Exm Date: APR 14, 2024@12:33 Req Phys: GERMAIN VALDES Loc: [facility] EMERGENCY DEPT WALK-IN (Re Im Loc: CT IMAGING Service: [place] [address] (Case [id number] COMPLETE) CT HEAD/BRAIN W/O CONTRAST (CT Detailed) CPT:19609 Reason for Study: fall on thinners Clinical History: LAST 3: Collection DT Specimen Test Name Result Units Ref Range 01/06/2024 09:29 PLASMA CREATININE 0.8 mg/dL 0.7 - 1.2 12/19/2023 09:17 PLASMA CREATININE 0.8 mg/dL 0.7 - 1.2 05/30/2023 10:03 PLASMA CREATININE 0.8 mg/dL 0.7 - 1.2 01/06/2024 09:29 PLASMA .CREAT EGFR(CKD-E 88 Ref: >=60 12/19/2023 09:17 PLASMA .CREAT EGFR(CKD-E 88 Ref: >=60 05/30/2023 10:03 PLASMA .CREAT EGFR(CKD-E 88 Ref: >=60 Allergies: ([facility]ion only) MORPHINE (Apr 24, 2021) Defer to radiologist for final CT protocol. Contact number for responsible provider who can be reached for any questions or notifications of critical findings: [phone] Per Joint Commission Standards, by signing this diagnostic imaging request the ordering provider confirms they have considered patients age and recent imaging history. Report Status: Verified Date Reported: APR 14, 2024 Date Verified: APR 14, 2024 [facility] E-Sig:/ES/ALONDRA FOURNIER MD Report: CT HEAD/BRAIN W/O CONTRAST 04/14/2024 12:33 PM HISTORY: Status post fall; patient is on anticoagulation therapy. TECHNIQUE: CT imaging of the head was performed without contrast. CONTRAST: None. DOSE: DLP: 1507.98, mGy.cm/CTDIvol Mean: 52.35, mGy. COMPARISON: Head CT without contrast dated 05/12/2019. FINDINGS: No intracranial hemorrhage is identified. There has been no significant change in patchy areas of hypodensity in the bilateral supratentorial white matter, nonspecific but likely reflecting mild to moderate chronic microangiopathic change in this 83-year-old patient. There is no evidence of a superimposed acute territorial infarct or cerebral contusion. There has been no significant change in moderate to severe bilateral cerebral volume loss, with suspected central predominance. There is no evidence of superimposed obstructive hydrocephalus. No intracranial mass effect is appreciated. The mastoid air cells and partially-imaged paranasal sinuses are well aerated. Bilateral ocular lens implants are again incidentally noted. No expansile or destructive calvarial lesion is evident. 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 Impression: Compared to 05/12/2019, 1. No evidence of acute intracranial pathology or skull fracture. 2. No significant change in mild to moderate chronic microangiopathic change. 3. No significant change in moderate to severe bilateral cerebral volume loss with persistent suspected central predominance. Primary Interpreting Staff: ALONDRA FOURNIER MD, RADIOLOGIST ([facility]) /[facility] ALONDRA FOURNIER [facility] Apr 14, 2024 12:[address] CERVICAL SPINE W/O CONTRAST: SHANTANU COHN [id number] -1940 M Exm Date: APR 14, 2024@12:33 Req Phys: GERMAIN VALDES Loc: [facility] EMERGENCY DEPT WALK-IN (Re Img Loc: CT IMAGING Service: [place] [address] (Case [id number] COMPLETE) CT CERVICAL SPINE W/O CONTRAST (CT Detailed) CPT:71423 Reason for Study: fall on thinners Clinical History: LAST 3: Collection DT Specimen Test Name Result Units Ref Range 01/06/2024 09:29 PLASMA CREATININE 0.8 mg/dL 0.7 - 1.2 12/19/2023 09:17 PLASMA CREATININE 0.8 mg/dL 0.7 - 1.2 05/30/2023 10:03 PLASMA CREATININE 0.8 mg/dL 0.7 - 1.2 01/06/2024 09:29 PLASMA .CREAT EGFR(CKD-E 88 Ref: >=60 12/19/2023 09:17 PLASMA .CREAT EGFR(CKD-E 88 Ref: >=60 05/30/2023 10:03 PLASMA .CREAT EGFR(CKD-E 88 Ref: >=60 Allergies: ([facility]ion only) MORPHINE (Apr 24, 2021) Defer to radiologist for final CT protocol. Contact number for responsible provider who can be reached for any questions or notifications of critical findings: [phone] Per Joint Commission Standards, by signing this diagnostic imaging request the ordering provider confirms they have considered patients age and recent imaging history. Report Status: Verified Date Reported: APR 14, 2024 Date Verified: APR 14, 2024 [facility] E-Sig:/ES/ALONDRA FOURNIER MD Report: CT CERVICAL SPINE W/O CONTRAST 04/14/2024 12:33 PM HISTORY: Status post fall; patient is on anticoagulation therapy. TECHNIQUE: CT imaging of the cervical spine was performed without contrast. CONTRAST: None. DOSE: DLP: 1507.98, mGy.cm/CTDIvol Mean: 52.35, mGy. COMPARISON: None. FINDINGS: No acute fracture is identified. The patient is status post anterior discectomy and interbody fusion at C3-C4 and C6-C7, with mature interbody bridging bone formation present at both levels. There is also mature interbody osseous fusion at C5-C6. Osseous fusion involves the left C3-C4 and bilateral C5-C6 facet joints. Minimal diminished height involving the C5 vertebral body anteriorly is chronic. The remaining vertebral body heights are preserved. Grade 1 anterolisthesis at C4-C5 and C7-T1 is suspected to be degenerative in nature. The remaining cervical vertebral alignment is maintained. There is no evidence of facet joint dislocation or subluxation. No prevertebral soft tissue swelling is evident. Atlantodental osteoarthritis is at least moderate in degree. Multilevel degenerative disc disease is greatest at C4-C5 where it is moderate in degree. On the right, multilevel facet osteoarthritis is greatest at C4-C5 and C7-T1 where it is moderate to severe, and at C2-C3 where it is between moderate and moderate to severe. On the left, multilevel facet osteoarthritis is greatest at C7-T1 where it is moderate to severe, and at C2-C3 where it is between moderate and moderate to severe. Two hypodense nodules in the upper and lower poles of the right thyroid lobe measure 1.7 cm and 1.6 cm in maximal transaxial diameter respectively. These correspond to 1.8 cm and 1.9 cm right thyroid nodules evaluated more fully on thyroid ultrasound dated 08/19/2018, on which they were reported to represent fine-needle aspiration-proven benign follicular and benign colloid nodules respectively. 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 Ill-defined calcific material involving the left temporomandibular joint likely represents chondrocalcinosis, although coexistent small calcified intracapsular bodies are also possible. Impression: 1. No evidence of an acute fracture. 2. Status post anterior discectomy and interbody fusion at C3-C4 and C6-C7, with mature interbody osseous fusion also noted at C5-C6. Osseous fusion involving the left C3-C4 and bilateral C5-C6 facet joints. 3. Multilevel spinal degenerative changes, as described. Accompanying grade 1 anterolisthesis at C4-C5 and C7-T1 is suspected to be degenerative in nature. 4. Chronic minimally diminished anterior C5 vertebral body height. Primary Interpreting Staff: ALONDRA FOURNIER MD, RADIOLOGIST ([facility]) /[facility] ALONDRA FOURNIER [facility] Encounter Notes: All associated encounter notes This section contains the clinical notes associated to the Encounter. Date/Time Encounter Note(s) Provider Source Apr 17, 2024 02:05 PM ADMINISTRATIVE NOT E: LOCAL TITLE: CCC: SCHEDULING ADMINISTRATION STANDARD TITLE: ADMINISTRATIVE NOTE DATE OF NOTE: APR 17, 2024@14:05 ENTRY DATE: APR 17, 2024@14:05:05 AUTHOR: ERINN SINGLETARY COSIGNER: URGENCY: STATUS: COMPLETED CCC: SCHEDULING ADMINISTRATION Has [facility] Call Center Primary Care Provider Call. Please contact at the following number: [phone] Other: was discharged from the hospital and needs a follow up appt next week no avaiablity, requested a call back at the number above. This note was created by a V23 [facility] LEIGHANN/JEAN. Please do not alert this fiction writer by adding as a signer for future communications. Alerts are not monitored by this user, please reach out to [facility] instead if indicated. /chadwick/ Erinn JARQUIN [address] [facility] Signed: 04/17/2024 14:06 Receipt Acknowledged By: 04/17/2024 16:29 /chadwick/ ONELIA MCCORMICK RN RN, BSN for ERINN FLANNERY 04/17/2024 ADDENDUM STATUS: COMPLETED RTC placed for LUCIAN , who can see vet for hosp f/u /chadwick/ ONELIA MCCORMICK RN RN, BSN Signed: 04/17/2024 16:30 Receipt Acknowledged By: * AWAITING SIGNATURE * STAN PERALES NIKIA LASHONDA [facility]
--- OUTSIDE RECORDS SUMMARY | 2024-04-18 13:54 | XMS_ITS | Encounter Summary ---
Author Name [facility] [place] Address [address] [place] [address] Care Team Providers Care Aluminum Polisher Name Role Phone BRINA BIRMINGHAM Primary Care [...] PLATI LULA BLUE COMP Jul 22, 2016 [id number] [phone] JACK COHN PATIENT ANTHEM [employer] PREFERRED PROVIDER ORGANIZAT ION (PPO) PLATI NUM BLUE COMP Jul 22, 2016 [id number] [phone] JACK COHN PATIENT ANTHEM [place] PREFERRED PROVIDER ORGANIZAT ION (PPO) PLATI NUM BLUE COMP Jul 22, 2016 [id number] [phone] JACK COHN PATIENT [place]BS [place] PREFERRED PROVIDER ORGANIZAT ION (PPO) PLATI NUM BLUE COMP Jul 22, 2016 [id number] [phone] JACK COHN PATIENT [place] [facility] (WNR) MEDICARE ADVANTAGE [facility] (WNR) Jul 22, 2016 [id number] [phone] JACK COHN [place]IENT [place] [facility] (WNR) MEDICARE ADVANTAGE [facility] (WNR) Jul 22, 2016 [id number] [phone] JACK COHN MEDICARE (WNR) MEDICARE (M) PART A November 19, 2004 PART A [id number] [phone] JACK COHN PATIENT MEDICARE (WNR) MEDICARE (M) PART B November 19, 2004 PART B [id number] JACK COHN PATIENT PRIME THERAPEUTI CS RX PRESCRIPT ION BCBS [facility] Jul 22, 2016 [place] [id number] [phone] JACK COHN PATIENT Selected Encounter This section includes the information on record at [place] for the Encounter. Date/Time Encounter Type Encounter Description Reason Pro vider Source Jan 24, 2024 10:14 AM Outpatient Encounter PRIMARY CARE/MEDICINE BRINA BIRMINGHAM Encounter Template Text not used by [place] Plan of Treatment: Future Appointments (+ 6 months) and Future Tests (+/- 45 days) The Plan of Treatment section includes future care activities for the patient from all [place] treatmentfacilities. This section includes future appointments and future orders which are active, pending or scheduled. Future Appointments This section includes appointments that were scheduled to occur 6 months from the date of the Encounter, up to a maximum of 20 appointments. The data comes from all [place] treatment facilities. Appointment Date/Time Appointment Type Appointme nt Facility Name Jan 30, 2024 07:45 AM AMBULATORY - SURGERY ADAN MARKNORIS [facility] Apr 14, 2024 11:59 AM AMBULATORY - MEDICINE LUISA WILLIAM [facility] Lab Results: +/- 30 days of the encounter This section includes the Chemistry and Hematology Lab Results on record with [place] for the patient. Radiology Reports and Pathology Reports are provided separately, in subsequent sections. Lab Results This section contains the Chemistry/Hematology Results that were resulted 30 days before or 30 daysafter the date of the Encounter. Date/Time Source Result Type Result - Unit Interpretation Reference Range Comment Jan 06, 2024 09:29 AM [facility] BASIC METABOLIC PANEL+MG Specimen Type: PLASMA No comment entered. Ordering Provider: BRINA BIRMINGHAM Report Released Date/Time: December 19, 2023 12:41 PM Reporting Lab: [facility] [id number] Performing Lab: [facility] [id number] CREATININE 0.8 mg/dL 0.7-1.2 UREA NITROGEN 13 [...] and tobacco- related health factors from the [place] facility where the Encounter took place. Current Smoking Status This section includes the most current smoking, or tobacco-related health factor, from the [place] facility where the Encounter took place. Date/Time Current Smoking Status Comment Leonard hyatty Apr 23, 2023 01:00 PM VA-TOBACCO NEVER USED [facility] Tobacco Use History This section includes a history of the smoking, or tobacco-related health factors, that were collected on or before the date of the Encounter. The data comes from the [place] facility where the Encounter took place. Date/Time Smoking Status/Tobacco Use Comment F acility Apr 24, 2022 09:43 AM VA-TOBACCO FORMER USER [facility] Apr 24, 2022 09:43 AM VA-TOBACCO QUIT 15 YRS OR MORE [facility] Feb 23, 2021 11:00 AM VA-TOBACCO FORMER USER [facility] Feb 23, 2021 11:00 AM VA-TOBACCO QUIT 15 YRS OR MORE [facility] Aug 04, 2019 03:40 PM VA-TOBACCO FORMER USER [facility] Aug 04, 2019 03:40 PM VA-TOBACCO QUIT 15 YRS OR MORE [facility] Jul 28, 2018 10:03 AM VA-TOBACCO FORMER USER [facility] Jul 28, 2018 10:03 AM VA-TOBACCO QUIT 15 YRS OR MORE [facility] Sep 12, 2017 09:15 AM FORMER TOBACCO USE >1Y <7Y [facility] November 30, 2016 07:51 AM FORMER TOBACCO USER 7Y OR GREATE R [facility] Sep 19, 2015 11:18 AM FORMER TOBACCO USE >1Y <7Y [facility] December 03, 2014 07:58 AM FORMER TOBACCO USER 7Y OR GREATE R [facility] December 01, 2013 07:39 AM LIFETIME NON-TOBACCO USER [facility] May 07, 2012 07:53 AM FORMER TOBACCO USE >1Y <7Y [facility] Aug 01, 2011 08:59 AM FORMER TOBACCO USE >1Y <7Y [facility] Jul 24, 2010 07:49 AM CURRENT TOBACCO USER [facility] Aug 03, 2009 10:18 AM CURRENT TOBACCO USER [facility] Aug 23, 2008 07:54 AM CURRENT TOBACCO USER [facility] Aug 15, 2007 07:52 AM CURRENT TOBACCO USER [facility] 2006 07:43 AM FORMER TOBACCO USE >1Y <7Y [facility] Advance Directives: All historical and current Section Date Range: From patient's date of to the date document was created. This section includes ALL of a patient's completed or amended [place] Advance and Rescinded Directives. The entries below indicate that a directive exists for the patient, but an actual copy is not included with this document. The data comes from all [place] facilities. Date Advance Directives Provider Source Mar 20, 2023 ADVANCE DIRECTIVE DISCUSSION ELY BERTRAND [facility] Mar 20, 2023 [facility], [facility] Encounter Notes: All associated encounter notes This section contains the clinical notes associated to the Encounter. Date/Time Encounter Note(s) Provider Source Feb 07, 2024 12:02 PM PRIMARY CARE SECUR E MESSAGING: LOCAL TITLE: PRIMARY CARE SECURE MESSAGING STANDARD TITLE: PRIMARY CARE SECURE MESSAGING DATE OF NOTE: FEB 07, 2024@12:02 ENTRY DATE: FEB 07, 2024@12:02:13 AUTHOR: BRINA BIRMINGHAM COSIGNER: URGENCY: STATUS: COMPLETED ------Original Message Sent: 02/03/2024 05:40 PM ET From: SHANTANU COHN To: [facility] Primary Care, Aristides [place] ([place]) Subject: General:consulting [id number] Thank you so much for looking them [...] BRINA BIRMINGHAM To: SHANTANU COHN Subject: General:consulting [id number] Probably a good idea to take a look just to make sure nothing has changed. I've but in a repeat CT chest and an ultrasound of the kidneys. The [place] should call you to set these up, but if they don't, the CT number is [phone] and the ultrasound number is [phone]. Thanks! /chadwick/ BRINA BIRMINGHAM MD PHYSICIAN, [facility] Signed: 02/07/2024 12:02 BRINA BIRMINGHAM [facility]
--- OUTSIDE RECORDS SUMMARY | 2024-04-18 13:54 | XMS_ITS | Encounter Summary ---
Author Name [facility] [place] Address [address] [place] [address] Care Team Providers Care Tool Maker Bench Name Role Phone BRINA BIRMINGHAM Primary Care [...] PLATI LULA BLUE COMP Jul 22, 2016 [id number] [phone] JACK COHN PATIENT ANTHEM [employer] PREFERRED PROVIDER ORGANIZAT ION (PPO) PLATI NUM BLUE COMP Jul 22, [id number] [phone] JACK COHN PATIENT ANTHEM [place] PREFERRED PROVIDER ORGANIZAT ION (PPO) PLATI NUM BLUE COMP Jul 22, 2016 [id number] [phone] JACK COHN PATIENT [place] PREFERRED PROVIDER ORGANIZAT ION (PPO) PLATI NUM BLUE COMP Jul 22, 2016 [id number] [phone] JACK COHN [place]IENT [place] [facility] ([place]NR) MEDICARE ADVANTAGE [facility] (WNR) Jul 22, 2016 [id number] [phone] JACK COHN [place] [facility] ([place]) MEDICARE ADVANTAGE [facility] (WNR) Jul 22, 2016 [id number] [phone] JACK COHN MEDICARE (WNR) MEDICARE (M) PART A November 19, 2004 PART A [id number] JACK COHN PATIENT MEDICARE (WNR) MEDICARE (M) PART B November 19, 2004 PART B [id number] JACK COHN PATIENT PRIME THERAPEUTI CS RX PRESCRIPT ION BCBS [facility] Jul 22, 2016 [place] [id number] [phone] JACK COHN PATIENT Selected Encounter This section includes the information on record at [place] for the Encounter. Date/Time Encounter Type Encounter Description Reason Pro vider Source Jan 28, 2024 09:02 AM Outpatient Encounter COMMUNITY CARE CONSULT IHE Encounter Template Text not used by [place] Plan of Treatment: Future Appointments (+ 6 months) and Future Tests (+/- 45 days) The Plan of Treatment section includes future care activities for the patient from all [place] treatmentfacilities. This section includes future appointments and future orders which are active, pending or scheduled. Future Appointments This section includes appointments that were scheduled to occur 6 months from the date of the Encounter, up to a maximum of 20 appointments. The data comes from all [place] treatment facilities. Appointment Date/Time Appointment Type Appointme nt Facility Name Jan 30, 2024 07:45 AM AMBULATORY - SURGERY ADAN MARKNORIS [facility] Apr 14, 2024 11:59 AM AMBULATORY - MEDICINE LUISA HARSHILLEONARDO [facility] Lab Results: +/- 30 days of the encounter This section includes the Chemistry and Hematology Lab Results on record with [place] for the patient. Radiology Reports and Pathology Reports are provided separately, in subsequent sections. Lab Results This section contains the Chemistry/Hematology Results that were resulted 30 days before or 30 daysafter the date of the Encounter. Date/Time Source Result Type Result - Unit Interpretation Reference Range Comment Jan 06, 2024 09:29 AM [facility] BASIC METABOLIC PANEL+MG Specimen Type: PLASMA No comment entered. Ordering Provider: BRINA BIRMINGHAM Report Released Date/Time: December 19, 2023 12:41 PM Reporting Lab: [facility] [id number] Performing Lab: [facility] [id number] CREATININE 0.8 mg/dL 0.7-1.2 UREA NITROGEN 13 [...] and tobacco- related health factors from the [place] facility where the Encounter took place. Current Smoking Status This section includes the most current smoking, or tobacco-related health factor, from the [place] facility where the Encounter took place. Date/Time Current Smoking Status Comment Leonard cárdenas Apr 23, 2023 01:00 PM VA-TOBACCO NEVER USED [facility] Tobacco Use History This section includes a history of the smoking, or tobacco-related health factors, that were collected on or before the date of the Encounter. The data comes from the [place] facility where the Encounter took place. Date/Time Smoking Status/Tobacco Use Comment F acility Apr 24, 2022 09:43 AM VA-TOBACCO FORMER USER [facility] Apr 24, 2022 09:43 AM VA-TOBACCO QUIT 15 YRS OR MORE [facility] Feb 23, 2021 11:00 AM VA-TOBACCO FORMER USER [facility] Feb 23, 2021 11:00 AM VA-TOBACCO QUIT 15 YRS OR MORE [facility] Aug 04, 2019 03:40 PM VA-TOBACCO FORMER USER [facility] Aug 04, 2019 03:40 PM VA-TOBACCO QUIT 15 YRS OR MORE [facility] Jul 28, 2018 10:03 AM VA-TOBACCO FORMER USER [facility] Jul 28, 2018 10:03 AM VA-TOBACCO QUIT 15 YRS OR MORE [facility] Sep 12, 2017 09:15 AM FORMER TOBACCO USE >1Y <7Y [facility] November 30, 2016 07:51 AM FORMER TOBACCO USER 7Y OR GREATE R [facility] Sep 19, 2015 11:18 AM FORMER TOBACCO USE >1Y <7Y [facility] December 03, 2014 07:58 AM FORMER TOBACCO USER 7Y OR GREATE R [facility] December 01, 2013 07:39 AM LIFETIME NON-TOBACCO USER [facility] May 07, 2012 07:53 AM FORMER TOBACCO USE >1Y <7Y [facility] Aug 01, 2011 08:59 AM FORMER TOBACCO USE >1Y <7Y [facility] Jul 24, 2010 07:49 AM CURRENT TOBACCO USER [facility] Aug 03, 2009 10:18 AM CURRENT TOBACCO USER [facility] Aug 23, 2008 07:54 AM CURRENT TOBACCO USER [facility] Aug 15, 2007 07:52 AM CURRENT TOBACCO USER [facility] 2006 07:43 AM FORMER TOBACCO USE >1Y <7Y [facility] Advance Directives: All historical and current Section Date Range: From patient's date of to the date document was created. This section includes ALL of a patient's completed or amended [place] Advance and Rescinded Directives. The entries below indicate that a directive exists for the patient, but an actual copy is not included with this document. The data comes from all [place] facilities. Date Advance Directives Provider Source Mar 20, 2023 ADVANCE DIRECTIVE DISCUSSION ELY BERTRAND [facility] Mar 20, 2023 ADVANCE DIRECTIVE ELY BERTRAND [facility] Aug 02, 2003 ADVANCE DIRECTIVE SHANDA CESAR [facility] Encounter Notes: All associated encounter notes [...] it looks like is now living in [facility]. Reached out to RN at [facility] and she confirmed receives medication management through the facility. Community care consult will be cancelled. /chadwick/ FREDY RUBIO Community Care RN Signed: 01/28/2024 15:52 Receipt Acknowledged By: 01/28/2024 15:59 /corry FLANNERY RN REGISTERED NURSE 01/28/2024 16:57 /corry BIRMINGHAM MD PHYSICIAN, [facility] === --- Original Document --- 01/28/24 COMMUNITY CARE-CARE COORDINATION PLAN NOTE: [facility] is closing its doors. They are attempting to coordinate new home care agencies to take over care. Undercover Operator received a call from Gill at [facility]. She was contacted by [facility] and would like to take over this . was already discharged. PACT please enter a skilled community home care consult fitz. Thank you /corry VILLALBA RN BSN COMMUNITY CARE AIR AND HYDRONIC BALANCING TECHNICIAN Signed: 01/28/2024 09:10 Receipt Acknowledged By: 01/28/2024 10:04 /corry RUBIO Community Care RN 01/28/2024 09:46 /corry FLANNERY RN REGISTERED NURSE 01/28/2024 10:09 /corry BIRMINGHAM MD PHYSICIAN, [facility] 01/28/2024 ADDENDUM STATUS: COMPLETED Order placed pending provider signature. /corry FLANNERY RN REGISTERED NURSE Signed: 01/28/2024 09:46 FREDY RUBIO [facility] Jan 28, 2024 09:03 AM NONVA NOTE: LOCAL TITLE: COMMUNITY CARE-CARE COORDINATION PLAN NOTE STANDARD TITLE: NONVA NOTE DATE OF NOTE: JAN 28, 2024@09:03 ENTRY DATE: JAN 28, 2024@09:03:34 AUTHOR: ORAL VILLALBA EXP COSIGNER: URGENCY: STATUS: COMPLETED COMMUNITY CARE-CARE COORDINATION PLAN NOTE Has ADDENDA [facility] is closing its doors. They are attempting to coordinate new home care agencies to take over care. Undercover Operator received a call from Gill at [facility]. She was contacted by [facility] and would like to take over this . [place] was already discharged. PACT please enter a skilled community home care consult fitz. Thank you /chadwick/ ORAL VILLALBA [facility]UN[facility] C[facility] AIR AND HYDRONIC BALANCING TECHNICIAN Signed: 01/28/2024 09:10 Receipt Acknowledged By: 01/28/2024 10:04 /chadwick/ FREDY RUBIO Community Care RN 01/28/2024 09:46 /chadwick/ ERINN FLANNERY RN REGISTERED NURSE 01/28/2024 10:09 /chadwick/ BRINA BIRMINGHAM MD PHYSICIAN, [facility] 01/28/2024 ADDENDUM STATUS: COMPLETED Order placed pending provider signature. /chadwick/ ERINN FLANNERY RN REGISTERED NURSE Signed: 01/28/2024 09:46 01/28/2024 ADDENDUM STATUS: COMPLETED After further chart review it looks like is now living in [facility]. Reached out to RN at [facility] and she confirmed receives medication management through the facility. Community care consult will be cancelled. /corry RUBIO Community Care RN Signed: 01/28/2024 15:52 Receipt Acknowledged By: * AWAITING SIGNATURE * ERINN FLANNERY * AWAITING SIGNATURE * BRINA BIRMINGHAM [facility]
--- OUTSIDE RECORDS SUMMARY | 2024-04-18 13:54 | XMS_ITS | Encounter Summary ---
Author Name [facility] [place] [facility] [place] Address [address] [place] [address] Care Team Providers Care Lead Network Engineer Name Role Phone BRINA BIRMINGHAM Primary [...] PLATI LULA BLUE COMP Jul 22, 2016 [id number] [phone] JACK COHN PATIENT ANTHEM [place] PREFERRED PROVIDER ORGANIZAT ION (PPO) PLATI NUM BLUE COMP Jul 22, 2016 [id number] [phone] JACK COHN PATIENT ANTHEM [place] PREFERRED PROVIDER ORGANIZAT ION (PPO) PLATI NUM BLUE COMP Jul 22, 2016 [id number] [phone] JACK COHN PATIENT [place] PREFERRED PROVIDER ORGANIZAT ION (PPO) PLATI NUM BLUE COMP Jul 22, 2016 [id number] [phone] JACK COHN PATIENT [place] [facility] (WNR) MEDICARE ADVANTAGE [facility] (WNR) Jul 22, 2016 [id number] [phone] JACK COHN [place] [facility] (WNR) MEDICARE ADVANTAGE [facility] (WNR) Jul 22, 2016 [id number] [phone] JACK COHN PATIENT MEDICARE (WNR) MEDICARE (M) PART A November 19, 2004 PART A [id number] [phone] JACK CHON PATIENT MEDICARE (WNR) MEDICARE (M) PART B November 19, 2004 PART B [id number] JACK COHN PATIENT PRIME THERAPEUTI CS RX PRESCRIPT ION BCBS [facility] Jul 22, 2016 [id number] [phone] JACK COHN PATIENT Selected Encounter This section includes the information on record at [facility] for the Encounter. Date/Time Encounter Type Encounter Description Reason Provider Source Apr 14, 2024 01:00 AM Outpatient Encounter ADMIN YesGraph (Node1) SYSTEM,[employer] IHE Encounter Template Text not used by [facility] Lab Results: +/- 30 days of the encounter This section includes the Chemistry and Hematology Lab Results on record with [facility] for the patient. Radiology Reports and Pathology Reports are provided separately, in subsequent sections. Lab Results This section contains the Chemistry/Hematology Results that were resulted 30 days before or 30 daysafter the date of the Encounter. Date/Time Source Result Type Result - Unit Interpretation Reference Range Comment Apr 14, 2024 01:[address] [facility] URINALYSIS Specimen Type: URINE No comment entered. Ordering Provider: MARIO VALDES EA Report Released Date/Time: Apr 14, 2024 12:22 PM Reporting Lab: [facility] [id number] Performing Lab: [facility] [id number] URINE COLOR LIGHT-YELLOW SPECIFIC GRAVITY 1.014 1.003-1.035 [...] NEGATIVE NEGATIVE Apr 14, 2024 12:[address] [facility] EXTRA BLUE TUBE Specimen Type: PLASMA No comment entered. Ordering Provider: MARIO VALDES EA Report Released Date/Time: Apr 14, 2024 12:32 PM Reporting Lab: [facility] [phone] Performing Lab: [facility] [id number] EXTRA BLUE TUBE RECEIVED Apr 14, 2024 12:[address] [facility] TROPONIN I, HS Specimen Type: PLASMA No comment entered. Ordering Provider: MARIO VALDES EA Report Released Date/Time: Apr 14, 2024 12:22 PM Reporting Lab: [facility] [phone] Performing Lab: [facility] [phone] TROPONIN I, HS 6 <35 Apr 14, 2024 12:[address] [facility] EXTRA GOLD GEL TUBE Specimen Type: SERUM No comment entered. Ordering Provider: MARIO VALDES EA Report Released Date/Time: Apr 14, 2024 12:32 PM Reporting Lab: [facility] [id number] Performing Lab: [facility] [id number] EXTRA GOLD GEL TUBE RECEIVED Apr 14, 2024 12:[address] [facility] BASIC METABOLIC PANEL+MG Specimen Type: PLASMA No comment entered. Ordering Provider: MARIO VALDES EA Report Released Date/Time: Apr 14, 2024 12:22 PM Reporting Lab: [facility] [phone] Performing Lab: [facility] [address] CREATININE 0.8 mg/dL 0.7-1.2 UREA NITROGEN 13 mg/dL 8-26 GLUCOSE 89 mg/dL 70-100 SODIUM 142 mmol/L 136-145 POTASSIUM 4.1 mmol/L 3.5-5.1 CHLORIDE 108 mmol/L H 98-107 CO2 28 mmol/L 22-29 CALCIUM 9.4 mg/dL 8.4-10.2 MAGNESIUM 2.0 mg/dL 1.6-2.6 ANION GAP 6 mmol/L 5-15 .CREAT EGFR(CKD-EPI ) 88 >60 Apr 14, 2024 12:[address] [facility] CBC & DIFF Specimen Type: BLOOD Comment: Automated Differential Performed Ordering Provider: MARIO VALDES EA Report Released Date/Time: Apr 14, 2024 12:22 PM Reporting Lab: [facility] [id number] Performing Lab: [facility] [phone] WBC 8.3 4.0-11.0 RBC 4.76 4.60-6.20 HGB [...] O,PRO) 0.4 ABS IMMATURE GRAN 0.0 0-0.1 Vital Signs: All taken on the encounter date This section contains inpatient and outpatient Vital Signs collected on the date of the Encounter. Date/Time Temperature Pulse Blood Pressure Respiratory Rate SP02 Pain Height Weight Body Mass Index Source Apr 14, 2024 12:02 PM 97.4 61 171/72 16 94 0 [place] [facility] Social History: Smoking Status (Most current) and Tobacco Use (All prior to encounter date) This section includes the most current, and the historical, smoking and tobacco- related health factors from the [facility] facility where the Encounter took place. Current Smoking Status This section includes the most current smoking, or tobacco-related health factor, from the [facility] facility where the Encounter took place. Date/Time Current Smoking Status Comment Facil ity Apr 23, 2023 01:00 PM VA-TOBACCO NEVER USED [facility] Tobacco Use History This section includes a history of the smoking, or tobacco-related health factors, that were collected on or before the date of the Encounter. The data comes from the [facility] facility where the Encounter took place. Date/Time Smoking Status/Tobacco Use Comment F acility Apr 24, 2022 09:43 AM VA-TOBACCO FORMER USER [facility] Apr 24, 2022 09:43 AM VA-TOBACCO QUIT [address] [facility] Feb 23, 2021 11:00 AM VA-TOBACCO FORMER USER [facility] Feb 23, 2021 11:00 AM VA-TOBACCO QUIT [address] [facility] Aug 04, 2019 03:40 PM VA-TOBACCO FORMER USER [facility] Aug 04, 2019 03:40 PM VA-TOBACCO QUIT [address] [facility] Jul 28, 2018 10:03 AM VA-TOBACCO FORMER USER [facility] Jul 28, 2018 10:03 AM VA-TOBACCO QUIT [address] [facility] Sep 12, 2017 09:15 AM FORMER TOBACCO USE >1Y <7Y [facility] November 30, 2016 07:51 AM FORMER TOBACCO USER 7Y OR GREATE R [facility] Sep 19, 2015 11:18 AM FORMER TOBACCO USE >1Y <7Y [facility] December 03, 2014 07:58 AM FORMER TOBACCO USER 7Y OR GREATE R [facility] December 01, 2013 07:39 AM LIFETIME NON-TOBACCO USER [facility] May 07, 2012 07:53 AM FORMER TOBACCO USE >1Y <7Y [facility] Aug 01, 2011 08:59 AM FORMER TOBACCO USE >1Y <7Y [facility] Jul 24, 2010 07:49 AM CURRENT TOBACCO USER [facility] Aug 03, 2009 10:18 AM CURRENT TOBACCO USER [facility] Aug 23, 2008 07:54 AM CURRENT TOBACCO USER [facility] Aug 15, 2007 07:52 AM CURRENT TOBACCO USER [facility] 2006 07:43 AM FORMER TOBACCO USE >1Y <7Y [facility] Advance Directives: All historical and current Section Date Range: From patient's date of to the date document was created. This section includes ALL of a patient's completed or amended [facility] Advance and Rescinded Directives. The entries below indicate that a directive exists for the patient, but an actual copy is not included with this document. The data comes from all [place] facilities. Date Advance Directives Provider Source Mar 20, 2023 ADVANCE DIRECTIVE DISCUSSION ELY BERTRAND [facility] Mar 20, 2023 ADVANCE DIRECTIVE ELY BERTRAND [facility] Aug 02, 2003 ADVANCE DIRECTIVE SHANDA CESAR [facility] Radiology Reports: +/- 30 days of [...] the Encounter. The data comes from all [place] treatment facilities. Date/Time Radiology Report Provider Source Apr 14, 2024 12:45 PM CHEST 2 VIEWS PA A ND LAT: SHANTANU COHN [id number] -1940 M Exm Date: APR 14, 2024@12:45 Req Phys: GERMAIN VALDES Loc: [facility] EMERGENCY DEPT WALK-IN (Re Img Loc: MAIN X-RAY Service: [place] [address] (Case [id number] COMPLETE) CHEST 2 VIEWS PA AND LAT (RAD Detailed) CPT:97929 Reason for Study: weakness Clinical History: [place] IS NOT under investigation for COVID-19 or is COVID-19 negative weakness Responsible provider name and phone number to notify for critical findings if other than user placing the order and pager listed below: User placing orders pager: [phone] LAST CREATININE 0.8 (01/06/24) Report Status: Verified Date Reported: APR 14, 2024 Date Verified: APR 14, 2024 Electro Winning Operator E-Sig:/ES/ISAURA CAMARENA MD Report: EXAMINATION: CHEST 2 VIEWS PA AND LAT 04/14/2024 12:45 PM INDICATION: weakness Impression: Shallow inspiration. Heart size is mildly prominent likely due to the shallow inspiration. Slight prominence of the pulmonary vasculature. No definite pulmonary infiltrate or pleural effusions. Bilateral TSA's. Primary Interpreting Staff: ISAURA CAMARENA MD, RADIOLOGIST (Electro Winning Operator) /RTS ISAURA CAMARENA [facility] Apr 14, 2024 12:45 PM KNEE RIGHT 3 VIEWS : RYAN COHNAMBER STUBBS [id number] -1940 M Exm Date: APR 14, 2024@12:45 Req Phys: LUCIOGERMAIN Vance Pat Loc: [facility] EMERGENCY DEPT WALK-IN (Re Img Loc: MAIN X-RAY Service: [place] [address] (Case [id number] COMPLETE) KNEE RIGHT 3 VIEWS (RAD Detailed) CPT:62683 Proc Modifiers : STANDING RIGHT Reason for Study: falls Clinical History: Weight-Bearing IS NOT under investigation for COVID-19 or is COVID-19 negative knee pain, falls Responsible provider name and phone number to notify for critical findings if other than user placing the order and pager listed below: User placing orders pager: [phone] LAST CREATININE 0.8 (01/06/24) Report Status: Verified Date Reported: APR 14, 2024 Date Verified: APR 14, 2024 Electro Winning Operator E-Sig:/ES/LEODAN ADAMS MD Report: X-RAY EXAM OF bilateral knees, three views INDICATION: Reason for Study: falls Weight-Bearing IS NOT under investigation for COVID-19 or is COVID-19 negative knee pain, falls Responsible provider name and phone number to notify for critical findings if other than user placing the order and pager listed below: User placing orders pager: [phone] LAST CREATININE 0.8 (01/06/24) COMPARISON: None available [...] Primary Interpreting Staff: LEODAN ADAMS MD, RADIOLOGIST (Electro Winning Operator) /LEODAN COTE [facility] Apr 14, 2024 12:45 PM KNEE LEFT 3 VIEWS: SHANTANU COHN [id number] -1940 M Exm Date: APR 14, 2024@12:45 Req Phys: GERMAIN VALDES Loc: [facility] EMERGENCY DEPT WALK-IN (Re Img Loc: MAIN X-RAY Service: [place] [address] (Case [id number] COMPLETE) KNEE LEFT 3 VIEWS (RAD Detailed) CPT:97417 Proc Modifiers : STANDING LEFT Reason for Study: knee pain Clinical History: Weight-Bearing [place] IS NOT under investigation for COVID-19 or is COVID-19 negative falls, pain Responsible provider name and phone number to notify for critical findings if other than user placing the order and pager listed below: User placing orders pager: [phone] LAST CREATININE 0.8 (01/06/24) Report Status: Verified Date Reported: APR 14, 2024 Date Verified: APR 14, 2024 Electro Winning Operator E-Sig:/ES/LEODAN ADAMS MD Report: X-RAY EXAM OF bilateral knees, three views INDICATION: Reason for Study: falls Weight-Bearing IS NOT under investigation for COVID-19 or is COVID-19 negative knee pain, falls Responsible provider name and phone number to notify for critical findings if other than user placing the order and pager listed below: User placing orders pager: [phone] LAST CREATININE 0.8 (01/06/24) COMPARISON: None available [...] Primary Interpreting Staff: LEODAN ADAMS MD, RADIOLOGIST (Electro Winning Operator) /LEODAN COTE [facility] Apr 14, 2024 12:[address] HEAD/BRAIN W/O CONTRAST: SHANTANU COHN [id number] -1940 M Exm Date: APR 14, 2024@12:33 Req Phys: GERAMIN VALDES Loc: [facility] EMERGENCY DEPT WALK-IN (Re Img Loc: CT IMAGING Service: [place] [address] (Case [id number] COMPLETE) CT HEAD/BRAIN W/O CONTRAST (CT Detailed) CPT:51750 Reason for Study: fall on thinners Clinical [...] PLASMA .CREAT EGFR(CKD-E 88 Ref: >=60 Allergies: ([place] only) MORPHINE (Apr 24, 2021) Defer to radiologist for final CT protocol. Contact number for responsible provider who can be reached for any questions or notifications of critical findings: [phone] Per Joint Commission Standards, by signing this diagnostic imaging request the ordering provider confirms they have considered patients age and recent imaging history. Report Status: Verified Date Reported: APR 14, 2024 Date Verified: APR 14, 2024 Electro Winning Operator E-Sig:/ES/ALONDRA FOURNIER MD Report: CT HEAD/BRAIN W/O [...] Primary Interpreting Staff: ALONDRA FOURNIER MD, RADIOLOGIST (Electro Winning Operator) /[facility] ALONDRA FOURNIER [facility] Apr 14, 2024 12:[address] CERVICAL SPINE W/O CONTRAST: SHANTANU COHN [id number] -1940 M Exm Date: APR 14, 2024@12:33 Req Phys: GERMAIN VALDES Loc: [facility] EMERGENCY DEPT WALK-IN (Re Img Loc: CT IMAGING Service: [place] [address] (Case [id number] COMPLETE) CT CERVICAL SPINE W/O CONTRAST (CT Detailed) CPT:45656 Reason for Study: fall on thinners Clinical [...] PLASMA .CREAT EGFR(CKD-E 88 Ref: >=60 Allergies: ([place] only) MORPHINE (Apr 24, 2021) Defer to radiologist for final CT protocol. Contact number for responsible provider who can be reached for any questions or notifications of critical findings: [phone] Per Joint Commission Standards, by signing this diagnostic imaging request the ordering provider confirms they have considered patients age and recent imaging history. Report Status: Verified Date Reported: APR 14, 2024 Date Verified: APR 14, 2024 Electro Winning Operator E-Sig:/ES/ALONDRA FOURNIER MD Report: CT CERVICAL SPINE [...] Primary Interpreting Staff: ALONDRA FOURNIER MD, RADIOLOGIST (Electro Winning Operator) /[facility] ALONDRA FOURNIER [facility] Encounter Notes: All associated encounter notes This section contains the clinical notes associated to the Encounter. Date/Time Encounter Note(s) Provider Source Apr 14, 2024 01:00 AM CRITICAL CARE UNIT NOTE: [facility] FLOWSHEET STANDARD TITLE: CRITICAL CARE UNIT NOTE DATE OF NOTE: APR 14, 2024@01:00 ENTRY DATE: APR 15, 2024@01:30:46 AUTHOR: MELODYAffle EXP COSIGNER: URGENCY: STATUS: COMPLETED This is a place forde only. Please see [employer] to view document. /es/ [employer] [facility] SYSTEM ICU DOCUMENT IMPORT Signed: 04/15/2024 01:[address] [facility] Apr 14, 2024 01:00 AM CRITICAL CARE UNIT NOTE: LOCAL TITLE: [facility] RESPIRATORY THERAPY FLOWSHEET STANDARD TITLE: CRITICAL CARE UNIT NOTE DATE OF NOTE: APR 14, 2024@01:00 ENTRY DATE: APR 15, 2024@15:13:54 AUTHOR: MELODYAffle EXP COSIGNER: URGENCY: STATUS: COMPLETED This is a place forde only. Please see [employer] to view document. /es/ [employer] SYSTEM ICU DOCUMENT IMPORT Signed: 04/15/2024 15:[address] [facility]
--- OUTSIDE RECORDS SUMMARY | 2024-04-18 13:54 | XMS_ITS | Encounter Summary ---
Author Name [facility] [place] Organization [facility] [place] Address [address] [place] [address] Care Team Providers Care Scarfer Name Role Phone BRINA BIRMINGHAM Primary Care [...] PLATI LULA BLUE COMP Jul 22, 2016 [id number] [phone] JACK COHN PATIENT ANTHEM [place] PREFERRED PROVIDER ORGANIZAT ION (PPO) PLATI NUM BLUE COMP Jul 22, [id number] [phone] JACK COHN PATIENT ANTHEM [place]BS [place] PREFERRED PROVIDER ORGANIZAT ION (PPO) PLATI NUM BLUE COMP Jul 22, 2016 [id number] [phone] JACK COHN PATIENT BCBS [place] PREFERRED PROVIDER ORGANIZAT ION (PPO) PLATI NUM BLUE COMP Jul 22, 2016 [id number] [phone] JACK COHN PATIENT BCBS [facility] (WNR) MEDICARE ADVANTAGE [facility] (WNR) Jul 22, 2016 [id number] [phone] JACK COHN PATIENT BCBS [facility] (WNR) MEDICARE ADVANTAGE [facility] (WNR) Jul 22, 2016 [id number] [phone] JACK COHN MEDICARE (WNR) MEDICARE (M) PART A November 19, 2004 PART A [id number] [phone] JACK COHN PATIENT MEDICARE (WNR) MEDICARE (M) PART B November 19, 2004 PART B [id number] JACK COHN PATIENT PRIME THERAPEUTI CS RX PRESCRIPT ION BCBS [facility] Jul 22, 2016 [id number] [phone] JACK COHN PATIENT Selected Encounter This section includes the information on record at [place] for the Encounter. Date/Time Encounter Type Encounter Description Reason Provider Source Jan 30, 2024 07:45 AM CONFORMITY EVALUATION AUDIOLOGY ICD-10-CM Z46.1 Encounter for fitting and adjustment of hearing aid ADAM GARRISON Chitra Encounter Template Text not used by [place] Assessments - Encounter Diagnoses This section includes the primary and secondary diagnoses documented for the Encounter. Date/Time Primary/Secondary Diagnosis Diagnosis Name Provider Source Jan 30, 2024 08:33 AM PRIMARY Encounter for fitting and adjustment of hearing aid SOFIE GARRISON [facility] Jan 30, 2024 08:33 AM SECONDARY Sensorineural hearing loss, bilateral SOFIE GARRISON [facility] Jan 30, 2024 08:33 AM SECONDARY Tinnitus, bilateral SOFEI GARRISON [facility] Plan of Treatment: Future Appointments (+ 6 months) and Future Tests (+/- 45 days) The Plan of Treatment section includes future care activities for the patient from all [place] treatmentfacilities. This section includes future appointments and future orders which are active, pending or scheduled. Future Appointments This section includes appointments that were scheduled to occur 6 months from the date of the Encounter, up to a maximum of 20 appointments. The data comes from all [place] treatment facilities. Appointment Date/Time Appointment Type Appointme nt Facility Name Apr 14, 2024 11:59 AM AMBULATORY - [facility]IC[facility] Lab Results: +/- 30 days of the encounter This section includes the Chemistry and Hematology Lab Results on record with [place] for the patient. Radiology Reports and Pathology Reports are provided separately, in subsequent sections. Lab Results This section contains the Chemistry/Hematology Results that were resulted 30 days before or 30 daysafter the date of the Encounter. Date/Time Source Result Type Result - Unit Interpretation Reference Range Comment Jan 06, 2024 09:29 AM [facility] BASIC METABOLIC PANEL+MG Specimen Type: PLASMA No comment entered. Ordering Provider: BRINA BIRMINGHAM Report Released Date/Time: December 19, 2023 12:41 PM Reporting Lab: [facility] [id number] Performing Lab: [facility] [id number] CREATININE 0.8 mg/dL 0.7-1.2 UREA NITROGEN 13 [...] and tobacco- related health factors from the [place] facility where the Encounter took place. Current Smoking Status This section includes the most current smoking, or tobacco-related health factor, from the [place] facility where the Encounter took place. Date/Time Current Smoking Status Comment Leonard cárdenas Apr 23, 2023 01:00 PM VA-TOBACCO NEVER USED [facility] Tobacco Use History This section includes a history of the smoking, or tobacco-related health factors, that were collected on or before the date of the Encounter. The data comes from the [place] facility where the Encounter took place. Date/Time Smoking Status/Tobacco Use Comment F acility Apr 24, 2022 09:43 AM VA-TOBACCO FORMER USER [facility] Apr 24, 2022 09:43 AM VA-TOBACCO QUIT 15 YRS OR MORE [facility] Feb 23, 2021 11:00 AM VA-TOBACCO FORMER USER [facility] Feb 23, 2021 11:00 AM VA-TOBACCO QUIT 15 YRS OR MORE [facility] Aug 04, 2019 03:40 PM VA-TOBACCO FORMER USER [facility] Aug 04, 2019 03:40 PM VA-TOBACCO QUIT 15 YRS OR MORE [facility] Jul 28, 2018 10:03 AM VA-TOBACCO FORMER USER [facility] Jul 28, 2018 10:03 AM VA-TOBACCO QUIT 15 YRS OR MORE [facility] Sep 12, 2017 09:15 AM FORMER TOBACCO USE >1Y <7Y [facility] November 30, 2016 07:51 AM FORMER TOBACCO USER 7Y OR GREATE R [facility] Sep 19, 2015 11:18 AM FORMER TOBACCO USE >1Y <7Y [facility] December 03, 2014 07:58 AM FORMER TOBACCO USER 7Y OR GREATE R [facility] December 01, 2013 07:39 AM LIFETIME NON-TOBACCO USER [facility] May 07, 2012 07:53 AM FORMER TOBACCO USE >1Y <7Y [facility] Aug 01, 2011 08:59 AM FORMER TOBACCO USE >1Y <7Y [facility] Jul 24, 2010 07:49 AM CURRENT TOBACCO USER [facility] Aug 03, 2009 10:18 AM CURRENT TOBACCO USER [facility] Aug 23, 2008 07:54 AM CURRENT TOBACCO USER [facility] Aug 15, 2007 07:52 AM CURRENT TOBACCO USER [facility] 2006 07:43 AM FORMER TOBACCO USE >1Y <7Y [facility] Advance Directives: All historical and current Section Date Range: From patient's date of to the date document was created. This section includes ALL of a patient's completed or amended [place] Advance and Rescinded Directives. The entries below indicate that a directive exists for the patient, but an actual copy is not included with this document. The data comes from all [facility]. Date Advance Directives Provider Source Mar 20, 2023 ADVANCE DIRECTIVE DISCUSSION ELY BERTRAND [facility] Mar 20, 2023 ADVANCE DIRECTIVE ELY BERTRAND [facility] Aug 02, 2003 ADVANCE DIRECTIVE SHANDA CESARO [facility] Encounter Notes: All associated encounter notes This [...] of excessive cerumen. Normal anatomy bilaterally. HISTORY: [place] has a pair of rarely worn RICs. HEARING AIDS: 01/30/24 AUDIOLOGY INSIO C&G 7AX HS-R R [id number] 01/23/27 06/22/24 618 MPLS 01/30/24 AUDIOLOGY INSIO C&G 7AX HS-R L [id number] 01/23/27 06/22/24 618 MPLS ACCESSORIES: Returned for credit today. Push button can be used for volume changes. 01/30/24 AUDIOLOGY MINIPOCKET REMOTE [id number] ACTION: Hearing aids are a good physical fit. Hearing aids were programmed to prescriptive targets, which were derived from the 's hearing loss. Real- ear measures (conformity evaluation) were completed (NAL-NL2). Gain and output were adjusted to ensure audibility and comfort. Loudness intolerance was measured using a 90 dB MPO tone sweep and the patient was able to tolerate the output of the hearing device(s). 's subjective impressions were considered while adjusting the hearing aids. Indicator tones were demonstrated for [place]. Volume control enabled - right raise, left lower push button [place] was counseled regarding: -Full-time hearing aid use and acclimating to amplification (acclimitization manager program activated for [place]) -Realistic expectations for hearing aid use -Appropriate communication strategies -How to charge the hearing aids -Location and operation of all controls -Proper care and maintenance -[facility] and Call Center contact information and services, including the trial period. reported good sound quality and equal balance between ears after adjustments were made. [place] reported a comfortable fit in both ears. [place] demonstrated understanding of the new aids and was able to insert the hearing aids appropriately, as well as manipulate the volume control and charging unit. Prognosis for success is good, given the [place]'s response to the hearing aids. Hearing aids were issued and batteries and supplies were mailed. was provided with a copy of [place] issuance form 2477b (mailed to ). PLAN: will return to clinic as needed for service as needed. Patient is in agreement with this plan. /chadwick/ KJ FRENCH STAFF FLUE DUST LABORER Signed: 01/30/2024 08:33 RAND GARRISON [facility]
--- OUTSIDE RECORDS SUMMARY | 2024-04-18 13:54 | XMS_ITS | Encounter Summary ---
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 Name Role Phone BRINA BIRMINGHAM Primary [...] PLATI LULA BLUE COMP Jul 22, 2016 [id number] [phone] JACK COHN PATIENT ANTHEM [place] PREFERRED PROVIDER ORGANIZAT ION (PPO) PLATI NUM BLUE COMP Jul 22, 2016 [id number] [phone] JACK COHN PATIENT ANTHEM [place] PREFERRED PROVIDER ORGANIZAT ION (PPO) PLATI NUM BLUE COMP Jul 22, 2016 [id number] [phone] JACK COHN PATIENT [place] PREFERRED PROVIDER ORGANIZAT ION (PPO) [place] NUM BLUE COMP Jul 22, 2016 [id number] [phone] JACK COHN PATIENT BCBS [place] [facility] (WNR) MEDICARE ADVANTAGE [facility] (WNR) Jul 22, 2016 [id number] [phone] JACK COHN PATIENT [place] [facility] (WNR) MEDICARE ADVANTAGE [facility] (WNR) Jul 22, 2016 [id number] [phone] JACK COHN MEDICARE (WNR) MEDICARE (M) PART A November 19, 2004 PART A [id number] [phone] JACK COHN MEDICARE (WNR) MEDICARE (M) PART B November 19, 2004 PART B [id number] JACK COHN PATIENT PRIME THERAPEUTI CS RX PRESCRIPT ION BCBS [facility] Jul 22, 2016 [place] [id number] [phone] JACK COHN PATIENT Selected Encounter This section includes the information on record at [place] for the Encounter. Date/Time Encounter Type Encounter Description Reason Pro vider Source Feb 12, 2024 11:13 AM Outpatient Encounter ADMIN PAT ACTIVTIES (MASNONCT) IHE Encounter Template Text not used by [place] Plan of Treatment: Future Appointments (+ 6 months) and Future Tests (+/- 45 days) The Plan of Treatment section includes future care activities for the patient from all [place] treatmentfacilities. This section includes future appointments and future orders which are active, pending or scheduled. Future Appointments This section includes appointments that were scheduled to occur 6 months from the date of the Encounter, up to a maximum of 20 appointments. The data comes from all [place] treatment facilities. Appointment Date/Time Appointment Type Appointme nt Facility Name Apr 14, 2024 11:59 AM [facility]ULATORY - [facility]ICINE [facility] Social History: Smoking Status (Most current) and Tobacco Use (All prior to encounter date) This section includes the most current, and the historical, smoking and tobacco- related health factors from the [facility] facility where the Encounter took place. Current Smoking Status This section includes the most current smoking, or tobacco-related health factor, from the [place] facility where the Encounter took place. Date/Time Current Smoking Status Comment Facil ity Apr 23, 2023 01:00 PM VA-TOBACCO NEVER USED [facility] Tobacco Use History This section includes a history of the smoking, or tobacco-related health factors, that were collected on or before the date of the Encounter. The data comes from the [place] facility where the Encounter took place. Date/Time Smoking Status/Tobacco Use Comment F acility Apr 24, 2022 09:43 AM VA-TOBACCO FORMER USER [facility] Apr 24, 2022 09:43 AM VA-TOBACCO QUIT [address] [facility] Feb 23, 2021 11:00 AM VA-TOBACCO FORMER USER [facility] Feb 23, 2021 11:00 AM VA-TOBACCO QUIT [address] [facility] Aug 04, 2019 03:40 PM VA-TOBACCO FORMER USER [facility] Aug 04, 2019 03:40 PM VA-TOBACCO QUIT [address] [facility] Jul 28, 2018 10:03 AM VA-TOBACCO FORMER USER [facility] Jul 28, 2018 10:03 AM VA-TOBACCO QUIT [address] [facility] Sep 12, 2017 09:15 AM FORMER TOBACCO USE >1Y <7Y [facility] November 30, 2016 07:51 AM FORMER TOBACCO USER 7Y OR GREATE R [facility] Sep 19, 2015 11:18 AM FORMER TOBACCO USE >1Y <7Y [facility] December 03, 2014 07:58 AM FORMER TOBACCO USER 7Y OR GREATE R [facility] December 01, 2013 07:39 AM LIFETIME NON-TOBACCO USER [facility] May 07, 2012 07:53 AM FORMER TOBACCO USE >1Y <7Y [facility] Aug 01, 2011 08:59 AM FORMER TOBACCO USE >1Y <7Y [facility] Jul 24, 2010 07:49 AM CURRENT TOBACCO USER [facility] Aug 03, 2009 10:18 AM CURRENT TOBACCO USER [facility] Aug 23, 2008 07:54 AM CURRENT TOBACCO USER [facility] Aug 15, 2007 07:52 AM CURRENT TOBACCO USER [facility] 2006 07:43 AM FORMER TOBACCO USE >1Y <7Y [facility] Advance Directives: All historical and current Section Date Range: From patient's date of to the date document was created. This section includes ALL of a patient's completed or amended [place] Advance and Rescinded Directives. The entries below indicate that a directive exists for the patient, but an actual copy is not included with this document. The data comes from all [place] facilities. Date Advance Directives Provider Source Mar 20, 2023 ADVANCE DIRECTIVE DISCUSSION ELY BERTRAND [facility] Mar 20, 2023 [facility] Aug [facility], 2003 ADVANCE DIRECTIVE SHANDA CESAR [facility] Encounter Notes: All associated encounter notes This [...] mail to address on file: SHANTANU COHN [address] [place] [phone] 3rd attempt Text message Disposition order request after Feb wants to call back to schedule If [facility] calls back, schedule appt for: CT Chest, low dose, ANTHONY [id number] and US Renal, ANTHONY [id number] /chadwick/ [facility] Signed: 02/12/2024 11:14 Receipt Acknowledged By: 02/12/2024 16:05 /chadwick/ BRINA BIRMINGHAM MD PHYSICIAN, [facility] PIEDAD [facility]
--- OUTSIDE RECORDS SUMMARY | 2024-04-18 13:54 | XMS_ITS | Encounter Summary ---
Author Name [facility] [place] [facility] [place] Address [address] [place] [address] Care Team Providers Care Wax Blender Name Role Phone BRINA BIRMINGHAM Primary Care [...] PLATI LULA BLUE COMP Jul 22, 2016 [id number] [phone] JACK COHN PATIENT ANTHEM [place] PREFERRED PROVIDER ORGANIZAT ION (PPO) PLATI NUM BLUE COMP Jul 22, 2016 [id number] [phone] JACK COHN PATIENT ANTHEM [place] PREFERRED PROVIDER ORGANIZAT ION (PPO) PLATI NUM BLUE COMP Jul 22, 2016 [id number] [phone] JACK COHN PATIENT [place] PREFERRED PROVIDER ORGANIZAT ION (PPO) PLATI NUM BLUE COMP Jul 22, 2016 [id number] [phone] JACK COHN PATIENT [place] [facility] (WNR) MEDICARE ADVANTAGE [facility] (WNR) Jul 22, 2016 [id number] [phone] JACK COHN PATIENT [place] [facility] (WNR) MEDICARE ADVANTAGE [facility] (WNR) Jul 22, 2016 [id number] [phone] JACK COHN PATIENT MEDICARE (WNR) MEDICARE (M) PART A November 19, 2004 PART A [id number] JACK COHN PATIENT MEDICARE (WNR) MEDICARE (M) PART B November 19, 2004 PART B [id number] [phone] JACK COHN PATIENT PRIME THERAPEUTI CS RX PRESCRIPT ION BCBS [facility] Jul 22, 2016 [id number] [phone] JACK COHN PATIENT Selected Encounter This section includes the information on record at [place] for the Encounter. Date/Time Encounter Type Encounter Description Reason Provider Source Apr 14, 2024 11:59 AM EMERGENCY DEPT VISIT [facility] ICD-10-CM R53.1 MARIO Olivier EA [facility] Encounter Template Text not used by [place] Assessments - Encounter Diagnoses This section includes the primary and secondary diagnoses documented for the Encounter. Date/Time Primary/Secondary Diagnosis Diagnosis Name Provider Source Apr 14, 2024 02:41 PM PRIMARY Weakness MARIO WISE EA [facility] Lab Results: +/- 30 days of the encounter This section includes the Chemistry and Hematology Lab Results on record with [place] for the patient. Radiology Reports and Pathology Reports are provided separately, in subsequent sections. Lab Results This section contains the Chemistry/Hematology Results that were resulted 30 days before or 30 daysafter the date of the Encounter. Date/Time Source Result Type Result - Unit Interpretation Reference Range Comment Apr 14, 2024 01:43 PM [facility] URINALYSIS Specimen Type: URINE No comment entered. Ordering Provider: MARIO WISE EA Report Released Date/Time: Apr 14, 2024 12:22 PM Reporting Lab: [facility] [id number] Performing Lab: [facility] [phone] URINE COLOR LIGHT-YELLOW SPECIFIC GRAVITY 1.014 1.003-1.035 [...] NEGATIVE NEGATIVE Apr 14, 2024 12:23 PM [facility] EXTRA BLUE TUBE Specimen Type: PLASMA No comment entered. Ordering Provider: MARIO WISE EA Report Released Date/Time: Apr 14, 2024 12:32 PM Reporting Lab: [facility] [id number] Performing Lab: [facility] [phone] EXTRA BLUE TUBE RECEIVED Apr 14, 2024 12:23 PM [facility] TROPONIN I, HS Specimen Type: PLASMA No comment entered. Ordering Provider: MARIO WISE EA Report Released Date/Time: Apr 14, 2024 12:22 PM Reporting Lab: [facility] [phone] Performing Lab: [facility] [id number] TROPONIN I, HS 6 <35 Apr 14, 2024 12:23 PM [facility] EXTRA GOLD GEL TUBE Specimen Type: SERUM No comment entered. Ordering Provider: MARIO WISE EA Report Released Date/Time: Apr 14, 2024 12:32 PM Reporting Lab: [facility] [address] Performing Lab: [facility] [address] EXTRA GOLD GEL TUBE RECEIVED Apr 14, 2024 12:23 PM [facility] BASIC METABOLIC PANEL+MG Specimen Type: PLASMA No comment entered. Ordering Provider: MARIO WISE EA Report Released Date/Time: Apr 14, 2024 12:22 PM Reporting Lab: [facility] [id number] Performing Lab: [facility] [address] CREATININE 0.8 mg/dL 0.7-1.2 UREA NITROGEN 13 mg/dL 8-26 GLUCOSE 89 mg/dL 70-100 SODIUM 142 mmol/L 136-145 POTASSIUM 4.1 mmol/L 3.5-5.1 CHLORIDE 108 mmol/L H 98-107 CO2 28 mmol/L 22-29 CALCIUM 9.4 mg/dL 8.4-10.2 MAGNESIUM 2.0 mg/dL 1.6-2.6 ANION GAP 6 mmol/L 5-15 .CREAT EGFR(CKD-EPI ) 88 >60 Apr 14, 2024 12:23 PM [facility] CBC & DIFF Specimen Type: BLOOD Comment: Automated Differential Performed Ordering Provider: MARIO WISE EA Report Released Date/Time: Apr 14, 2024 12:22 PM Reporting Lab: [facility] [address] Performing Lab: [facility] [address] WBC 8.3 4.0-11.0 RBC 4.76 4.60-6.20 HGB [...] PM 97.4 61 171/72 16 94 0 [facility] Social History: Smoking Status (Most current) and Tobacco Use (All prior to encounter date) This section includes the most current, and the historical, smoking and tobacco- related health factors from the [place] facility where the Encounter took place. Current Smoking Status This section includes the most current smoking, or tobacco-related health factor, from the [place] facility where the Encounter took place. Date/Time Current Smoking Status Comment Facil ity Apr 23, 2023 01:00 PM VA-TOBACCO NEVER USED [facility] Tobacco Use History This section includes a history of the smoking, or tobacco-related health factors, that were collected on or before the date of the Encounter. The data comes from the [place] facility where the Encounter took place. Date/Time Smoking Status/Tobacco Use Comment F acility Apr 24, 2022 09:43 AM VA-TOBACCO FORMER USER [facility] Apr 24, 2022 09:43 AM VA-TOBACCO QUIT 15 YRS OR MORE [facility] Feb 23, 2021 11:00 AM VA-TOBACCO FORMER USER [facility] Feb 23, 2021 11:00 AM VA-TOBACCO QUIT 15 YRS OR MORE [facility] Aug 04, 2019 03:40 PM VA-TOBACCO FORMER USER [facility] Aug 04, 2019 03:40 PM VA-TOBACCO QUIT 15 YRS OR MORE [facility] Jul 28, 2018 10:03 AM VA-TOBACCO FORMER USER [facility] Jul 28, 2018 10:03 AM VA-TOBACCO QUIT 15 YRS OR MORE [facility] Sep 12, 2017 09:15 AM FORMER TOBACCO USE >1Y <7Y [facility] November 30, 2016 07:51 AM FORMER TOBACCO USER 7Y OR GREATE R [facility] Sep 19, 2015 11:18 AM FORMER TOBACCO USE >1Y <7Y [facility] December 03, 2014 07:58 AM FORMER TOBACCO USER 7Y OR GREATE R [facility] December 01, 2013 07:39 AM LIFETIME NON-TOBACCO USER [facility] May 07, 2012 07:53 AM FORMER TOBACCO USE >1Y <7Y [facility] Aug 01, 2011 08:59 AM FORMER TOBACCO USE >1Y <7Y [facility] Jul 24, 2010 07:49 AM CURRENT TOBACCO USER [facility] Aug 03, 2009 10:18 AM CURRENT TOBACCO USER [facility] Aug 23, 2008 07:54 AM CURRENT TOBACCO USER [facility] Aug 15, 2007 07:52 AM CURRENT TOBACCO USER [facility] 2006 07:43 AM FORMER TOBACCO USE >1Y <7Y [facility] Advance Directives: All historical and current Section Date Range: From patient's date of to the date document was created. This section includes ALL of a patient's completed or amended [place] Advance and Rescinded Directives. The entries below indicate that a directive exists for the patient, but an actual copy is not included with this document. The data comes from all [place] facilities. Date Advance Directives Provider Source Mar 20, 2023 ADVANCE DIRECTIVE DISCUSSION ELY BERTRAND [facility] Mar 20, 2023 [facility] Aug 02, 2003 ADVANCE DIRECTIVE ARSENIOSHANDA Buenrostro [facility] Radiology Reports: +/- 30 days of the [...] the Encounter. The data comes from all [place] treatment facilities. Date/Time Radiology Report Provider Source Apr 14, 2024 12:45 PM KNEE LEFT 3 VIEWS: SHANTANU COHN EVELYNE [id number] -1940 M Exm Date: APR 14, 2024@12:45 Req Phys: CULLEN WISE Pat Loc: [facility]PT WALK-IN (Re Img Loc: MAIN X-RAY Service: [place] [address] (Case [id number] COMPLETE) KNEE LEFT 3 VIEWS (RAD Detailed) CPT:96491 Proc Modifiers : STANDING LEFT Reason for Study: knee pain Clinical History: Weight-Bearing [place] IS NOT under investigation for COVID-19 or is COVID-19 negative falls, pain Responsible provider name and phone number to notify for critical findings if other than user placing the order and pager listed below: User placing orders pager: [phone] LAST CREATININE 0.8 (01/06/24) Report Status: Verified Date Reported: APR 14, 2024 Date Verified: APR 14, 2024 Autism Tutor E-Sig:/ES/LEODAN ADAMS MD Report: X-RAY EXAM OF bilateral knees, three views INDICATION: Reason for Study: falls Weight-Bearing [place] IS NOT under investigation for COVID-19 or is COVID-19 negative knee pain, falls Responsible provider name and phone number to notify for critical findings if other than user placing the order and pager listed below: User placing orders pager: [phone] LAST CREATININE 0.8 (01/06/24) COMPARISON: None available [...] Primary Interpreting Staff: LEODAN ADAMS MD, RADIOLOGIST (Autism Tutor) /LEODAN COTE [facility] Apr 14, 2024 12:45 PM CHEST 2 VIEWS PA A ND LAT: SHANTANU COHN EVELYNE [id number] -1940 M Exm Date: APR 14, 2024@12:45 Req Phys: CULLEN WISE Pat Loc: [facility] WALK-IN (Re Img Loc: MAIN X-RAY Service: [place] [address] (Case [id number] COMPLETE) CHEST 2 VIEWS PA AND LAT (RAD Detailed) CPT:12621 Reason for Study: weakness Clinical History: IS NOT under investigation for COVID-19 or is COVID-19 negative weakness Responsible provider name and phone number to notify for critical findings if other than user placing the order and pager listed below: User placing orders pager: [phone] LAST CREATININE 0.8 (01/06/24) Report Status: Verified Date Reported: APR 14, 2024 Date Verified: APR 14, 2024 Autism Tutor E-Sig:/ES/ISAURA CAMARENA MD Report: EXAMINATION: CHEST 2 VIEWS PA AND LAT 04/14/2024 12:45 PM INDICATION: weakness Impression: Shallow inspiration. Heart size is mildly prominent likely due to the shallow inspiration. Slight prominence of the pulmonary vasculature. No definite pulmonary infiltrate or pleural effusions. Bilateral TSA's. Primary Interpreting Staff: ISAURA CAMARENA MD, RADIOLOGIST (Autism Tutor) /RTS ISAURA CAMARENA [facility] Apr 14, 2024 12:45 PM KNEE RIGHT 3 VIEWS : SHANTANU COHN [id number] -1940 M Exm Date: APR 14, 2024@12:45 Req Phys: CULLEN WISE Pat Loc: [facility] WALK-IN (Re Img Loc: MAIN X-RAY Service: [place] [address] (Case [id number] COMPLETE) KNEE RIGHT 3 VIEWS (RAD Detailed) CPT:79997 Proc Modifiers : STANDING RIGHT Reason for Study: falls Clinical History: Weight-Bearing IS NOT under investigation for COVID-19 or is COVID-19 negative knee pain, falls Responsible provider name and phone number to notify for critical findings if other than user placing the order and pager listed below: User placing orders pager: [phone] LAST CREATININE 0.8 (01/06/24) Report Status: Verified Date Reported: APR 14, 2024 Date Verified: APR 14, 2024 Autism Tutor E-Sig:/ES/LEODAN ADAMS MD Report: X-RAY EXAM OF bilateral knees, three views INDICATION: Reason for Study: falls Weight-Bearing IS NOT under investigation for COVID-19 or is COVID-19 negative knee pain, falls Responsible provider name and phone number to notify for critical findings if other than user placing the order and pager listed below: User placing orders pager: [phone] LAST CREATININE 0.8 (01/06/24) COMPARISON: None available [...] Primary Interpreting Staff: LEODAN ADAMS MD, RADIOLOGIST (Autism Tutor) /LEODAN COTE [facility] Apr 14, 2024 12:[address] HEAD/BRAIN W/O CONTRAST: SHANTANU COHN [id number] -1940 M Exm Date: APR 14, 2024@12:33 Req Phys: CULLEN WISE Loc: [facility] WALK-IN (Re Im Loc: CT IMAGING Service: [place] [address] (Case [id number] COMPLETE) CT HEAD/BRAIN W/O CONTRAST (CT Detailed) CPT:11439 Reason for Study: fall on thinners Clinical [...] PLASMA .CREAT EGFR(CKD-E 88 Ref: >=60 Allergies: (Plain only) MORPHINE (Apr 24, 2021) Defer to radiologist for final CT protocol. Contact number for responsible provider who can be reached for any questions or notifications of critical findings: [phone] Per Joint Commission Standards, by signing this diagnostic imaging request the ordering provider confirms they have considered patients age and recent imaging history. Report Status: Verified Date Reported: APR 14, 2024 Date Verified: APR 14, 2024 Autism Tutor E-Sig:/ES/ALONDRA FOURNIER MD Report: CT HEAD/BRAIN W/O [...] Primary Interpreting Staff: ALONDRA FOURNIER MD, RADIOLOGIST (Autism Tutor) /[facility] ALONDRA FOURNIER [facility] Apr 14, 2024 12:[address] CERVICAL SPINE W/O CONTRAST: SHANTANU COHN [id number] -1940 M Exm Date: APR 14, 2024@12:33 Req Phys: CULLEN WISE Loc: [facility] WALK-IN (Re Img Loc: CT IMAGING Service: [place] [address] (Case [id number] COMPLETE) CT CERVICAL SPINE W/O CONTRAST (CT Detailed) CPT:78442 Reason for Study: fall on thinners Clinical [...] PLASMA .CREAT EGFR(CKD-E 88 Ref: >=60 Allergies: (Plain only) MORPHINE (Apr 24, 2021) Defer to radiologist for final CT protocol. Contact number for responsible provider who can be reached for any questions or notifications of critical findings: [phone] Per Joint Commission Standards, by signing this diagnostic imaging request the ordering provider confirms they have considered patients age and recent imaging history. Report Status: Verified Date Reported: APR 14, 2024 Date Verified: APR 14, 2024 Autism Tutor E-Sig:/ES/ALONDRA FOURNIER MD Report: CT CERVICAL SPINE [...] Primary Interpreting Staff: ALONDRA FOURNIER MD, RADIOLOGIST (Autism Tutor) /[facility] ALONDRA FOURNIER [facility] Encounter Notes: All associated encounter notes This section contains the clinical notes associated to the Encounter. Date/Time Encounter Note(s) Provider Source Apr 14, 2024 01:54 PM EMERGENCY DEPT EDUCATION NOTE: LOCAL TITLE: EMERGENCY DEPT DISCHARGE INSTRUCTIONS STANDARD TITLE: EMERGENCY DEPT EDUCATION NOTE DATE OF NOTE: APR 14, 2024@13:54:26 ENTRY DATE: APR 14, 2024@13:54:26 AUTHOR: CULLEN WISE COSIGNER: URGENCY: STATUS: COMPLETED DISCHARGE INSTRUCTIONS IMPORTANT: We examined and treated you today on an emergency basis only. This was not a substitute for, or an effort to provide, comprehensive medical care. In most cases, you must let your healthcare provider check you again. Tell your healthcare provider about any new or lasting problems. We cannot recognize and treat all injuries or illnesses in one Emergency Department visit. After you leave, you should follow the instructions below. You were treated today by Cullen Wise PA-C. Special Information You were evaluated today for weakness. Your head CT, cervical CT, and x-rays are all normal. Your labs are reassuring and do not show major problems. Your urine does not look infected. If you have new weakness, pass out, or are unable to care for yourself then return for evaluation. I am sending a referral for physical therapy. You can also call [phone] to discuss with physical therapy. This Information Is About Your Follow Up Care We recommend that you follow up with your Primary Care Team to have an appointment within the next 1 - 2 weeks. Call to arrange this appointment. If you are not feeling better and improving as discussed or if you have any questions please contact your Primary Care Provider. Future Appointments Future Appointments List not available This Information Is About Your Illness and Diagnosis UNEXPLAINED WEAKNESS Unexplained weakness is a perceived loss of muscle strength and general tiredness that occurs for no apparent reason. Weakness is a symptom of many different medical conditions. What causes unexplained weakness? Some causes of general weakness and tiredness include: -dehydration (too little water in the body) -side effects of certain medicines -vitamin or nutritional deficiencies -infections -low thyroid (hypothyroidism) -rheumatoid diseases, such as lupus and rheumatoid arthritis -low red blood cell count (anemia) -neurologic conditions, such as stroke, inflammation of certain nerves, multiple sclerosis -sedentary lifestyle (very little, if any, exercise) -depression -chronic fatigue syndrome How does the health care provider know I have weakness? Signs and symptoms: -loss of muscle strength (this may be generalized or a specific group of muscles) -general fatigue or tiredness -trouble sleeping -slow or delayed movement -lack of energy -trouble finishing a task due to muscle or generalized fatigue -physical discomfort, such as muscle aches or shakiness What tests may be done? -a physical exam -by talking to you about your weakness, asking how long you've felt it, if anything in particular caused the weakness to get worse, if you have had any other symptoms or problems, if anyone else in your family has had similar problems -depending on your particular symptoms, your health care provider may order some of the following tests: -blood tests -medical scan of your brain, spine, chest, or other areas -muscle and nerve tests -muscle biopsy -electroencephalogram (EEG) -lumbar puncture, or spinal tap, to check the fluid around your spinal cord for infection or other problems How will my weakness be treated? Specific treatment will depend on what your health care provider finds is causing your weakness. Your health care provider may recommend ways to alter or improve your lifestyle. Please follow these instructions: -Keep all follow-up appointments with your health care provider. -Take all medicines exactly as prescribed. -Allow time for rest periods throughout your day. -Ask someone to help you with household tasks, such as house cleaning and children's attendant while you are feeling weak. -Pace your activities. -Keep your sleeping hours regular. -Eat healthy foods with plenty of protein, and fresh fruits and vegetables. Drink plenty of water. Contact your health care provider immediately if: -you have any trouble breathing. -you have chest pain, arm numbness or weakness. -you have sudden changes in your speech or vision. -you have numbness or loss of strength on one side of your body. -someone has trouble awakening you. Contact your health care provider as soon as possible if you: -have increased weakness or loss of strength of the muscles. -develop a fever. -develop new pain. -have any new or bothersome symptoms. IMPORTANT MEDICATION INFORMATION -Your medication list includes any medications that were recently prescribed but not filled by the Pharmacy (PENDING Medicines). -Included are any known ACTIVE Medicines. Please review this list to make sure it is accurate, if this list does not match the current medications you are taking please follow-up with your Primary Care Team to have your Medication List reviewed. Medicines Medication List not available YOU ARE THE MOST IMPORTANT FACTOR IN YOUR RECOVERY. Follow the above instructions carefully. Take your medicines as prescribed. If you do not understand any of your medicines, please ask questions. If you have any outstanding tests from the emergency department, please contact your provider to review them in the next 3-5 days. If you have new symptoms, feel worse, or are not getting better as discussed, call to discuss your health questions and arrange for follow-up care, or return to the Emergency Room IF YOU ARE EXPERIENCING A MEDICAL EMERGENCY CALL 911 OR GO TO THE NEAREST EMERGENCY ROOM /[place]wick/ ADRIANE PAULINO PHYSICIAN PERFORMANCE IMPROVEMENT ANALYST Signed: 04/14/2024 13:54 CULLEN WISE [facility] Apr 14, 2024 12:05 PM PHYSICIAN EMERGENCY DEPT NOTE: LOCAL TITLE: EMERGENCY DEPT NOTE STANDARD TITLE: PHYSICIAN EMERGENCY DEPT NOTE DATE OF NOTE: APR 14, 2024@12:05 ENTRY DATE: APR 14, 2024@12:05:21 AUTHOR: CULLEN WISE COSIGNER: URGENCY: STATUS: COMPLETED Personal Protective Equipment (PPE): Patient was in mask on arrival, Patient was in mask on arrival, patient remained masked for entire visit, RN used PPE during every encounter with the patient, MD/PA/CENTRAL OFFICE TECHNICIAN used PPE during every encounter with the patient Nurse's note reviewed. Chief Complaint: The patient is a 83 y/o MALE complaining of: falls, weakness from assisted living TDAP/TD Immunizations ADMINISTERED Immunization Series Date Facility Reaction Info TDAP 11/08/2022 [place]* CONTRAINDICATED No data available REFUSED ======= No data available * Value is truncated; see the Detailed Immunizations Health Summary Component[DIM] for complete text Covid-19 Immunizations ADMINISTERED Immunization Series Date Facility Reaction Info COVID-19 (PFIZER), MRNA, LNP-S, * 1 08/18/2020 [place] <C> COVID-19 (PFIZER), MRNA, LNP-S, * 2 09/10/2020 [place] <C> COVID-19 (PFIZER), MRNA, LNP-S, * 04/26/2021 [facility] [facility] COVID-19 (PFIZER), MRNA, LNP-S, * 11/07/2021 [facility] [facility] COVID-19 (PFIZER), MRNA, LNP-S, * 05/04/2022 [facility] [facility] CONTRAINDICATED No data available REFUSED ======= No data available <C> See the Detailed Immunizations Health Summary Component[DIM] for Comments * Value is truncated; see the Detailed Immunizations Health Summary Component[DIM] for complete text History of present illness: 83 YO M with morbid obesity, h/o stroke, A fib on apixiban, mild cognitive delay, GERD, MEGHA, depression, venous insufficiency, pulmonary hypertension who presents through triage for weakness and falls. He is here with his daughter who picked him up from his assisted living. Reportedly he had 2 falls in the last day, one where he slid from his bed and one where he was tangled up and fell. Denies LOC or head trauma at either fall. Daughter says he has been complainging of knee pain recently and says his right knee looks a little swollen. He denies any fever, chills, urinary symptoms, cough, SOB, CP. Says he does urinate a lot at night and that is not unusual. Daughter is hoping to get a PT referral if he returns back to his facility. Allergies: MORPHINE (Apr 24, 2021) Past Medical History: Active problems - Computerized Problem List is the source for the followin. Benign prostatic hyperplasia 2. Hypertension (SNOMED CT [id number]) 3. Gastroesophageal reflux disease - Also known hiatal hernia 4. Morbid obesity 5. 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 Osteoarthritis of hip - was evaluated by ortho 09/2017 and deferred surgery given weight 7. Mild cognitive impairment 8. Lumbosacral Radiculopathy (SCT 4053355) - At one point neurosurgery was planning for L2-S1 fusion with L3-5 laminectomies but this was cancelled 10/2021. - Has had improvement with duloxetine and use of Rollator 9. Depression (SCT 40139084) 10. Nocturia - Has long history of this, and previously followed with urology, last seeing them 2018 - Prior UA has been normal - Suspect largely driven by BPH +/- MEGHA 11. Obstructive sleep apnea syndrome - Suspected by pulm 2022, watchPAT pending 12. Paroxysmal Atrial Fibrillation (SCT 232115249) - Dx 04/2023 following CVA 01/2023 - Started apixaban 05/2023 13. Long-Term Current Use of Anticoagulant (SCT 709436976) 14. Venous insufficiency of leg - per 05/2023 US 15. Pulmonary hypertension - Moderately increased estimated PAP by tricuspid regurgitation velocity and right atrial pressure (48 mmHg plus RAP) per [facility] 01/2023 16. Ex-smoker Medications: Active Outpatient Medications (excluding Supplies): Outpatient Medications Status 1) ACETAMINOPHEN 500MG TAB TAKE TWO TABLETS BY MOUTH ACTIVE TWICE A DAY AND TAKE TWO TABLETS EVERY DAY NEEDED FOR PAIN 2) APIXABAN 5MG TAB TAKE ONE TABLET BY MOUTH EVERY 12 ACTIVE HOURS TO PREVENT STROKES 3) FERROUS GLUCONATE 324MG TAB TAKE ONE TABLET BY MOUTH ACTIVE EVERY OTHER DAY FOR ANEMIA 4) FINASTERIDE 5MG TAB TAKE ONE TABLET BY MOUTH EVERY ACTIVE DAY FOR PROSTATE 5) HYDROCHLOROTHIAZIDE 12.5MG TAB TAKE ONE TABLET BY ACTIVE (S) MOUTH EVERY DAY FOR BLOOD PRESSURE 6) LIDOCAINE 5% PATCH APPLY 1 PATCH TOPICALLY EVERY DAY ACTIVE FOR UP TO 12 HOURS FOR PAIN 7) LISINOPRIL 10MG TAB TAKE ONE TABLET BY MOUTH EVERY ACTIVE DAY FOR BLOOD PRESSURE 8) METOPROLOL TARTRATE 25MG TAB TAKE ONE TABLET BY MOUTH HOLD TWICE A DAY FOR BLOOD PRESSURE 9) MULTIVIT/OPHTH AREDS2/LUTE/ZEAX CAP/TAB TAKE 1 ACTIVE CAP/TAB BY MOUTH TWICE A DAY FOR EYE HEALTH 10) PANTOPRAZOLE NA 40MG EC TAB TAKE ONE TABLET BY MOUTH ACTIVE (S) EVERY EVENING TO DECREASE STOMACH ACID -TAKE ON AN EMPTY STOMACH, AT LEAST ONE-HALF HOUR BEFORE EATING 11) ROSUVASTATIN CA 20MG TAB TAKE ONE TABLET BY MOUTH ACTIVE EVERY DAY FOR CHOLESTEROL 12) TAMSULOSIN HCL 0.4MG CAP TAKE TWO CAPSULES BY MOUTH ACTIVE AT BEDTIME Physical Exam: BP: 171/72 (04/14/2024 12:02) P: 61 (04/14/2024 12:02) R: 16 (04/14/2024 12:02) T: 97.4 F [36.3 C] (04/14/2024 12:02) O2 Sats: 94% (04/14/2024 12:02) General: non-toxic, daughter at bedside Skin: faint rash to bilateral lower legs without warmth or erythema, no vesicles, no drainage HEENT: atraumatic, no scalp hematomas Neck: supple, no midline TTP, full ROM Eye: PERRLA Cardiovascular: A fib, trace pedal edema bilaterally Pulses: DP/PT 2+ bilaterally Abdomen: obese, large soft ventral hernia, nontender Respiratory: Lungs - clear to auscultation bilaterally Abdominal: soft,NT,ND Extremities: No cyanosis present, ranging all extremities. Able to transfer from wheelchair to bed with limited assistance. Surgical scars to anterior right knee. Mild knee pain with ROM but no warmth, erythema, focal TTP Ekg Interpretation: EKG sinus bradycardia with sinus arrhythmima, no obvious ANN-MARIE or STD, no TWI; QTc 401 ms Labs: PT/INR Done: SODIUM 142 mmol/L 136 - 145 POTASSIUM 4.1 mmol/L 3.5 - 5.1 CHLORIDE 108 H mmol/L 98 - 107 CO2 28 mmol/L 22 - 29 ANION GAP 6 mmol/L 5 - 15 GLUCOSE 89 mg/dL 70 - 100 UREA NITROGEN 13 mg/dL 8 - 26 CREATININE 0.8 mg/dL 0.7 - 1.2 CALCIUM 9.4 mg/dL 8.4 - 10.2 MAGNESIUM 2.0 mg/dL 1.6 - 2.6 .CREAT EGFR(CKD-EPI) 88 Ref: >=60 WBC 8.3 10x3/uL 4.0 - 11.0 RBC 4.76 10x6/uL 4.60 - 6.20 HGB 12.1 L g/dL 13.5 - 17.9 HCT 38.7 L % 41 - 54 MCV 81.3 fL 80 - 100 MCH 25.4 L pg 27 - 33 MCHC 31.3 L g/dL 32.0 - 37.5 RDW 15.1 H % 11.5 - 14.5 PLT 189 10x3/uL 150 - 400 MPV 11.5 fL 9.1 - 13.0 NEUT 72.9 % 40.0 - 80.0 LYMPHS 14.5 L % 15.0 - 45.0 MONO 9.9 % 2.0 - 12.0 EOSINO 1.8 % 0.0 - 6.0 BASO 0.5 % 0.0 - 2.0 IG(META,MYELO,PRO) 0.4 % ABS NEUT 6.0 10x3/uL 2.0 - 7.7 ABS LYMPH 1.2 10x3/uL 1.0 - 4.0 ABS MONO 0.8 10x3/uL 0.1 - 1.0 ABS EOS 0.2 10x3/uL 0 - 0.5 ABS BASO 0.0 10x3/uL 0 - 0.2 ABS IMMATURE GRAN 0.0 10x3/uL 0 - 0.1 Comments: Impression: Shallow inspiration. Heart size is mildly prominent likely due to the shallow inspiration. Slight prominence of the pulmonary vasculature. No definite pulmonary infiltrate or pleural effusions. Bilateral TSA's LAB RESULTS TODAY - NONE FOUND Imaging: I have personally viewed the images and my impression is: Impression: FINDINGS/IMPRESSION: Right knee: There is a total knee arthroplasty device in good position. No evidence to suggest loosening. There is a small suprapatellar effusion. No evidence of an acute osseous abnormality. Left knee: There is a total knee arthroplasty device in good position. No evidence to suggest loosening. There is a small suprapatellar effusion. No evidence of an acute osseous abnormality. Impression: Compared to 05/12/2019, 1. No evidence of acute intracranial pathology or skull fracture. 2. No significant change in mild to moderate chronic microangiopathic change. 3. No significant change in moderate to severe bilateral cerebral volume loss with persistent suspected central predominance. APPEARANCE CLEAR URINE COLOR LIGHT-YELLOW SPECIFIC GRAVITY 1.014 1.003 - 1.035 URINE PH 7.0 5.0 - 8.0 URINE GLUCOSE NEGATIVE mg/dL Ref: <30 URINE BILIRUBIN NEGATIVE Ref: NEGATIVE URINE KETONES NEGATIVE Ref: NEGATIVE URINE BLOOD NEGATIVE Ref: NEGATIVE URINE PROTEIN NEGATIVE mg/dL Ref: <20 URINE NITRITE NEGATIVE Ref: NEGATIVE LEUKOCYTE ESTERASE NEGATIVE Valente/uL Ref: NEGATIVE URINE WBC/HPF NONE SEEN /HPF 0 - 7 URINE RBC/HPF 2 /HPF 0 - 3 SQUAMOUS EPITHELIAL <1 /HPF ED Course/Medical Decision Making/Assessment: CPRS Notes/Labs Reviewed for Patient Encounter: Emergency department triage, emergency department nursing note 83 YO M with morbid obesity, h/o stroke, A fib on apixiban, mild cognitive delay, GERD, MEGHA, depression, venous insufficiency, pulmonary hypertension who presents through triage for weakness and falls. Physical exam as above. Arrives hypertensive, pulse 60s, afebrile and non-toxic. Will plan for a broad workup for weakness including CT head and C spine given reports of fall and on anticoagulation. Will also XR his chest and knees to evaluate for any fracture or evidence of PNA. Will get a UA and lab work to evaluate for any electrolyte abnormality causing weakness. His EKG is non ischemic bu given his age will also check a troponin to ensure no ACS. Discussed with his daughter and she reports if no emergents findings, would be comfortable discharging back to home with assisted living with a referral for physical therapy. Dispo pending. BMP with normal electrolytes, sodium 142. CBC with hemoglobin 12, above baseline. No leukocytosis. CXR negative. Bilateral knee XR without fracture. CT head and c spine negative. UA negative. Troponin not suggestive of ACS with reassuring EKG and no chest pain. Overall, his workup is reassuring without emergent causes of dizziness. Will refer to PT for physical therapy and provide the number for them to schedule evaluation. Discussed the plan with he and his daughter who are agreeable. We have reviewed return to ED precautions. Diagnosis and Plan: weakness, closed head injury, f/u PCP, PT Disposition: home /es/ ADRIANE PAULINO PHYSICIAN PERFORMANCE IMPROVEMENT ANALYST Signed: 04/14/2024 13:56 [facility]ULLEN W[facility] Apr 14, 2024 12:04 PM NURSING EMERGENCY DEPT TRIAGE NOTE: LOCAL TITLE: EMERGENCY DEPARTMENT NURSING TRIAGE NOTE STANDARD TITLE: NURSING EMERGENCY DEPT TRIAGE NOTE DATE OF NOTE: APR 14, 2024@12:04 ENTRY DATE: APR 14, 2024@12:04:11 AUTHOR: EUGENE GARCIA EXP COSIGNER: URGENCY: STATUS: COMPLETED Emergency Department/Urgent Care Center Triage Patient age:83 Sex: MALE On arrival patient was: AMBULATORY Patient phone number: Allergies: MORPHINE (Apr 24, 2021) Subjective/Chief Complaint: Pt reports 2 falls in last 15 hours - fell last night and again this am. He thinks he tripped last night. Denies dizziness/lightheadedness/LOC . states this am he slid off the edge of the bed. Deneis injury. Did not hit head. Daughter reports he has been more weak and has a shuffling gait. Objective: Plesant and cooperative. Able to make needs known. Ambulatory with walker. The patient is a fall risk. Intervention: w/ assist only Vital Signs * Blood Pressure: 171/72 (04/14/2024 12:02) Heart Rate: 61 (04/14/2024 12:02) Respirations: 16 (04/14/2024 12:02) Temperature: 97.4 F [36.3 C] (04/14/2024 12:02) Pain: 0 (04/14/2024 12:02) Weight: 290.5 lb [131.77 kg] (12/19/2023 10:04) O2 Sats: 94% (04/14/2024 12:02) Emergency Severity Index (HONEY) level Level 3 Current Medications: Active Outpatient Medications (including Supplies): Active Outpatient Medications Status 1) ACETAMINOPHEN 500MG TAB TAKE TWO TABLETS BY MOUTH ACTIVE TWICE A DAY AND TAKE TWO TABLETS EVERY DAY NEEDED FOR PAIN 2) APIXABAN 5MG TAB TAKE ONE TABLET BY MOUTH EVERY 12 ACTIVE HOURS TO PREVENT STROKES 3) DRESS,MEPILEX BORDER FLEX 4X4IN #469723 APPLY 1 ACTIVE DRESSING TOPICALLY EVERY DAY FOR SKIN TEAR 4) FERROUS GLUCONATE 324MG TAB TAKE ONE TABLET BY MOUTH ACTIVE EVERY OTHER DAY FOR ANEMIA 5) FINASTERIDE 5MG TAB TAKE ONE TABLET BY MOUTH EVERY ACTIVE DAY FOR PROSTATE 6) GAUZE PAD 4IN X 4IN 8-PLY NONSTERILE USE GAUZE ACTIVE SPONGE/PAD GAUZE PAD 4IN X 4IN 8-PLY NONSTERILE TOPICALLY DIRECTED FOR WOUND CARE 7) HYDROCHLOROTHIAZIDE 12.5MG TAB TAKE ONE TABLET BY ACTIVE (S) MOUTH EVERY DAY FOR BLOOD PRESSURE 8) LIDOCAINE 5% PATCH APPLY 1 PATCH TOPICALLY EVERY DAY ACTIVE FOR UP TO 12 HOURS FOR PAIN 9) LISINOPRIL 10MG TAB TAKE ONE TABLET BY MOUTH EVERY ACTIVE DAY FOR BLOOD PRESSURE 10) METOPROLOL TARTRATE 25MG TAB TAKE ONE TABLET BY MOUTH HOLD TWICE A DAY FOR BLOOD PRESSURE 11) MULTIVIT/OPHTH AREDS2/LUTE/ZEAX CAP/TAB TAKE 1 ACTIVE CAP/TAB BY MOUTH TWICE A DAY FOR EYE HEALTH 12) PANTOPRAZOLE NA 40MG EC TAB TAKE ONE TABLET BY MOUTH ACTIVE (S) EVERY EVENING TO DECREASE STOMACH ACID -TAKE ON AN EMPTY STOMACH, AT LEAST ONE-HALF HOUR BEFORE EATING 13) ROSUVASTATIN CA 20MG TAB TAKE ONE TABLET BY MOUTH ACTIVE EVERY DAY FOR CHOLESTEROL 14) TAMSULOSIN HCL 0.4MG CAP TAKE TWO CAPSULES BY MOUTH ACTIVE AT BEDTIME Current Problems: Benign prostatic hyperplasia (SCT [id number] (SCT [id number]) Gastroesophageal reflux disease (SCT 235Morbid obesity (SCT 552636712) Stroke ([facility] 138769439) Osteoarthritis of hip ([facility] 236056130) Mild cognitive impairment ([facility] [id number] Radiculopathy ([facility] 2615919) Depression ([facility] 21556958) Nocturia ([facility] 524821452) Obstructive sleep apnea syndrome ([facility] 78Paroxysmal Atrial Fibrillation ([facility] [id number]) Long-Term Current Use of Anticoagulant (Venous insufficiency of leg ([facility] [id number]) Pulmonary hypertension ([facility] 88917439) Ex-smoker ([facility] 6685131) Identification of Seniors at Risk (ISAR):* Perform Screen Yes-ISAR more help than usual Yes-ISAR More than 3 different medications daily Total Score: 2 Suicide Screen: [place] Suicide Severity Rating Scale (C-SSRS) screener 1. [...] required due to responses to other questions. /chadwick/ EUGENE GARCIA REGISTERED NURSE Signed: 04/14/2024 12:06 EUGENE GARCIA [facility]
--- OUTSIDE RECORDS SUMMARY | 2024-04-18 13:55 | XMS_ITS | Clinical Summary ---
Author Organization [facility] Address [place], [place] [address] Care Team Providers Care Mobile Engineer Name Role Phone Pcp, No Primary Care [...] hyperplasia) 08/18/2016 L4-L5 lytic spondylolisthesis with stenosis. Overview (08/18/2016): S/p 1. L4-L5 Vagras laminectomy for spondylolisthesis. 2. L4-L5 pedicle screw [...] Date Resolved Date Lumbar stenosis 08/08/2016 08/18/2016 Overview (08/18/2016): S/p . L4-L5 Vargas laminectomy for spondylolisthesis. 2. L4-L5 pedicle screw instrumentation. 3. L4-L5 interbody fusion. 4. L4-L5 posterolateral fusion. 5. L4-L5 interbody device placement. 6. Autograft harvest same incision. 7. Allograft. 8. Microdissection. 9. Stealth 3-D volumetric stereotactic navigation for pedicle screw placement By Dr. Michel intermediate frame tender (current) use of anticoagulants 02/19/2013 03/11/2013 correction (current) use of anticoagulants 06/21/2011 07/12/2011 S/P knee replacement 06/13/2011 011 Overview (06/13/2011): L, 11-17-11 Hypertrophy of prostate with urinary [...] DT Respiratory Rate 16 08/20/2016 7:34 AM SOCIAL MEDIA MARKETING ANALYST Oxygen Saturation 90% 04/25/2018 10:22 AM CDT [...] age 65+ 2005 Tetanus booster 11/16/2012 11/16/2002 RSV vaccine for adults or (1 - 1-dose 75+ series) 2015 BMI (ht and wt on same day) for age 18+ 04/25/2019 04/25/2018, 07/30/2016, 07/20/2016, Additional history exists Depression screening for age 12+ 04/25/2019 04/25/20 18, 07/20/2016 Pneumococcal series for age 65+ (3 of 3 - PPSV23 or PCV20) 04/16/2022 04/16/2017, 05/14/2003 COVID-19 vaccine series (4 - season) 2024 05/04/2022, 11/07/2021, 04/26/2021 Influenza for age 65+ 03/22/2024 04/25/2018 , 04/16/2017, 04/18/2016 (Completed outside of [facility]), Additional history exists Medical Devices Implanted Type Area Machine Puller Over Device Identifier Shelf Expiration Date Model / Serial / Lot Girma Lmbr 40x5.5mm Tsrh 3d Cvd Titnm - [id number] Implanted:Qty: 4 on 08/16/2016 by Luis Alberto Michel MD at [facility] Spine Implants N/A: Spine Medtronic Spine/Ortho [id number]# / / [id number] one 1-4mm 30cc Medtronic Chips Canclls Freeze Dried Implanted:Qty: 1 on 08/16/2016 by Luis Alberto Michel MD at [facility] Explanted:at [facility] (Quantity not on file) N/A: Spine Medtronic Spine/Ortho 05/17/2021 [id number] / [id number] / [id number] one Matrix 10cc [place] Plus Paste Dbm Implanted:Qty: 1 on 08/16/2016 by Luis Alberto Michel MD at [facility] Explanted:at [facility] (Quantity not on file) N/A: Spine Medtronic Spine/Ortho 03/08/2018 [id number]# / [id number] / Spacer Lmbr 8x22mm Capstone Tlif Peek - [id number] Implanted:Qty: 1 on 08/16/2016 by Luis Alberto Michel MD at [facility] N/A: Spine Medtronic Spine/Ortho [id number]# / / [id number] Set Screw Lmbr Tsrh 3dx - [id number] Implanted:Qty: 4 on 08/16/2016 by Luis Alberto Michel MD at [facility] N/A: Spine Medtronic Spine/Ortho [id number]# / / Cnnctr Lmbr Sm Tsrh 3dx Offsettitnm - [id number] Implanted:Qty: 4 on 08/16/2016 by Luis Alberto Michel MD at [facility] N/A: Spine Medtronic Spine/Ortho [id number]# / / Screw Lmbr Post 7.5x50mm Tsrh 3dx Og Thin Va - [id number] Implanted:Qty: 4 on 08/16/2016 by Luis Alberto Michel MD at [facility] N/A: Spine Medtronic Spine/Ortho [id number]# / / Advance Directives Documents on File Type Date Recorded Patient Fighter Pilot Expl anation Healthcare Directive 08/16/2016 7:02 AM [...] Not DiscussedPer Advance Care Plan Care Teams Mobile Engineer Relationship Specialty Start Date End Date Pcp, No . PCP - General 04/25/18
--- OUTSIDE RECORDS SUMMARY | 2024-04-18 13:55 | XMS_ITS | Clinical Summary ---
Author Organization [facility] Address [address] [place] [address]. [place] [address] Care Team Providers Care Studio Producer Name Role Phone [facility] Primary Care Prov ider Allergies Active Allergy [...] 1940 ZOSTER IMMUNIZATION (1 of 2) 1990 FALL RISK ASSESSMENT 2005 RSV VACCINE (1 - 1-dose 75+ series) 2015 Pneumococcal Vaccine: 65+ Years (3 of 3 - PPSV23 or PCV20) 04/16/2022 04/16/2017, 05/14/2003 PHQ-2 (once per calendar year) 2023 COVID-19 Vaccine (4 - season) 2024 05/04/2022, 11/07/2021, 04/26/2021 INFLUENZA VACCINE (#1) 2024 3, 04/26/2021, 04/22/2020, [...] Advance Directives For more information, please contact: [phone] * Full Code (Latest Code Status on File) Date Activated Date Inactivated Comments 03/09/2018 9:10 AM Care Teams Studio Producer Relationship Specialty Start Date End Date [place], [facility] [place] [address] PCP - General 03/07/18
--- OUTSIDE RECORDS SUMMARY | 2024-04-18 13:55 | XMS_ITS | Referral Summary ---
Author Organization [facility] Address [address] [place] [address]. [place] [address] Care Team Providers Care Baked Goods Stock Clerk Name Role Phone [facility] Primary Care Prov ider Allergies [...] Advance Directives For more information, please contact: [phone] * Full Code (Latest Code Status on File) Date Activated Date Inactivated Comments 03/09/2018 9:10 AM Care Teams Baked Goods Stock Clerk Relationship Specialty [place] [address] PCP - General 03/07/18
[2024-04-18 14:11] LABS: PCR FLU A Negative PCR FLU A (Negative); PCR FLU B Negative PCR FLU B (Negative); PCR RSV Negative PCR RSV (Negative); SARS PCR* Negative SARS-CoV-2 (Negative)
== END 2024-04-18 14:23 | disposition home or self-care (01) ==
LOC: ED 13:51
PROVIDERS: Emergency Provider Emergency Medicine Emergency Medical Services
DX: R42 Dizziness and giddiness (principal); I95.9 Hypotension, unspecified
CPT/HCPCS: 87631; 93005; 99284

== ENCOUNTER 2025-04-01 17:22 | Emergency (ER) | payer MEDICARE, BC, OTHER, SELFPAY ==
--- OUTSIDE RECORDS SUMMARY | 2025-04-01 17:23 | XMS_ITS | Clinical Summary ---
Author Organization [facility] Address [address] [place] [address] Care Team Providers Care Rehabilitation Consultant Name Role Phone Pcp, No Primary Care Provider Unavailabl e Allergies Active Allergy Reactions Criticality Noted Date Comments Morphine Confusion 02/05/2013 Other reaction(s): Confusion Medications gabapentin (NEURONTIN) 800 mg tablet Take 1 tablet by mouth 3 times daily. 0 6 Active Terazosin HCl 10 mg capsule Take 20 mg by mouth at bedtime. Active finasteride (PROSCAR) 5 mg tablet Take 5 mg by mouth at bedtime. Active pantoprazole (PROTONIX) 40 mg delayed-releas e tablet Take 40 mg by mouth 2 times daily before meals. Active WalkerIndicati ons:Lumbar stenosis Rolling Walker for home use. 1 Device 7 Active acetaminophen (TYLENOL) 325 mg tabletIndicati ons:Lumbar stenosis Take 2 tablets by mouth every 4 hours if needed. Max acetaminophen dose: 4000mg in 24 hrs. 60 tablet 7 Active DULoxetine (CYMBALTA) 20 mg Delayed-releas e capsule Take 60 mg by mouth. Active lisinopril-hyd rochlorothiazi de 20-12.5 mg tablet (PRINZIDE) Take 1 tablet by mouth. Active Active Problems Problem Noted Date Diagnosed Date Acute delirium 08/18/2016 BPH (benign prostatic hyperplasia) 08/18/2016 L4-L5 lytic spondylolisthesis with stenosis. Overview (08/18/2016): S/p 1. L4-L5 Vargas laminectomy for spondylolisthesis. [...] for pedicle screw placement By Dr. 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 Not on file Not on file Not on file Obstetrics History Last Filed Vital Signs Vital Sign Reading Time Taken Comments Blood Pressure 104/67 04/25/2018 10:22 AM CDT Pulse 95 04/25/2018 10:22 AM CDT Temperature 34.8 C (94.7 F) 04/25/2018 10:22 AM CDT Respiratory Rate 16 08/20/2016 7:34 AM BOOK TRIMMER Oxygen Saturation 90% 04/25/2018 10:22 AM CDT Inhaled Oxygen Concentration - - Weight 129.3 kg (285 lb) 04/25/2018 10:22 AM CDT Height 176 cm (5' 9.29) 04/25/2018 10:22 AM CDT Body Mass Index 41.73 04/25/2018 10:22 AM CDT Plan of Treatment Health Maintenance Due Date Last Done Comments Zoster (shingles) series for age 50+ (1 of 2) 1990 Medicare Wellness for age 65+ 2005 Tetanus booster 11/16/2012 11/16/2002 RSV vaccine for adults or (1 - 1-dose 75+ series) 2015 BMI (ht and wt on same day) for age 18+ 04/25/2019 04/25/2018, 07/30/2016, 07/20/2016, Additional history exists Depression screening for age 12+ 04/25/2019 04/25/2018, 07/20/2016 Pneumococcal series for age 50+ (3 of 3 - PCV20 or PCV21) 04/16/2022 04/16/2017, 05/14/2003 COVID-19 vaccine series (4 - season) 2025 05/04/2022, 11/07/2021, 04/26/2021 Influenza Vaccine (#1) 2025 8, 04/16/2017, 04/12/2016, Additional history exists Hepatitis B series for 19+ Aged Out N o longer eligible based on patient's age to complete this topic Medical Devices Implanted Type Area Education Consultant Device Identifier Shelf Expiration Date Model / Serial / Lot Girma Lmbr 40x5.5mm Tsrh 3d Cvd Titnm - [id number] Implanted:Qty: 4 on 08/16/2016 by Luis Alberto Michel MD at [facility] Spine Implants N/A: Spine Medtronic Spine/Ortho [id number]# / / [id number] one 1-4mm 30cc Medtronic Chips Canclls Freeze Dried Implanted:Qty: 1 on 08/16/2016 by Luis Alberto Michel MD at [facility] Explanted:at [facility] (Quantity not on file) N/A: Spine Medtronic Spine/Ortho 05/17/2021 [id number]# / [id number] / [id number] one Matrix 10cc [place] Plus Paste Dbm Implanted:Qty: 1 on 08/16/2016 by Luis Alberto Michel MD at [facility] Explanted:at [facility] (Quantity not on file) N/A: Spine Medtronic Spine/Ortho 03/08/2018 [id number]# / [id number] / Spacer Lmbr 8x22mm Capstone Tlif Peek - [id number] Implanted:Qty: 1 on 08/16/2016 by Luis Alberto Michel MD at [facility] N/A: Spine Medtronic Spine/Ortho [id number]# / / [id number] Set Screw Lmbr Tsrh 3dx - [id number] Implanted:Qty: 4 on 08/16/2016 by Luis Alberto Michel MD at [facility] N/A: Spine Medtronic Spine/Ortho [id number]# / / Cnnctr Lmbr Sm Tsrh 3dx Offsettitme - [id number] Implanted:Qty: 4 on 08/16/2016 by Luis Alberto Michel MD at [facility] N/A: Spine Medtronic Spine/Ortho [id number]# / / Screw Lmbr Post 7.5x50mm Tsrh 3dx Og Thin Va - [id number] Implanted:Qty: 4 on 08/16/2016 by Luis Alberto Michel MD at [facility] N/A: Spine Medtronic Spine/Ortho [id number]# / / Insurance MEDICARE PART B HB ONLY [place] BL[place] HB ONLY MEDICARE PART A HB ONLY [place] BLUE MR PB ONLY Advance Directives Documents on File Type Date Recorded Patient Warehouse Stocker Expl anation Healthcare Directive 08/16/2016 7:02 AM [...] Not DiscussedPer Advance Care Plan Care Teams Rehabilitation Consultant Relationship Specialty Start Date End Date Pcp, No . PCP - General 04/25/18
[2025-04-01 17:45] VITALS: BP 130/78; PULSE 65; RESP 18; TEMP 37.1; O2SAT 92; BMI 36.9
--- NOTE | 2025-04-01 17:48 | CRLHL7_ITS ---
For Patients: As a result of the Cures Act, medical imaging exams and procedure reports are released immediately into your electronic medical record. You may view this report before your referring provider. If you have questions, please contact your health care provider. Indication: Pain. Technique: Left foot 2 views. Comparison: None. Findings: Bones: Acute, mildly displaced fracture of the 5th metatarsal shaft. No intra-articular extension. No other fracture identified. No aggressive osseous lesion. Joint spaces: Unremarkable. Soft tissues: Unremarkable. Impression: Acute, mildly displaced fracture of the 5th metatarsal shaft. No intra-articular extension Dictated by Aashish Baker MD @ 04/01/2025 6:21:35 PM (Electronically Signed)
--- NOTE | 2025-04-01 19:50 | ED.LOWEXIN ---
HPI - Extremity Injury (Lower) General Date Seen: 04/01/25 Chief Complaint: Extremity Pain/Injury, Lower Stated Complaint: foot pain Time Seen by Provider: 04/01/25 19:36 Source: patient Mode of arrival: ambulatory Limitations: no limitations History of Present Illness HPI Narrative: Patient is an 84-year-old male presenting from [facility] for left foot pain. He is unable to bear much weight on the foot due to pain. States her x-rays done yesterday and he was told he has a fracture but they have been attempting to call the nursing station to get further information will kind of fracture this was. They have been unable to get in contact with nursing staff so came to the emergency department for evaluation. He denies any numbness of the foot. States the pain is only a 2/10 currently but becomes serious the more when he tries to walk. States he fell yesterday but does not remember any other falls. No other concerns noted Related Data Home Medications ?Medication ?Instructions ?Recorded ?Confirmed duloxetine 60 mg capsule,delayed 60 mg PO DAILY 02/15/23 10/25/23 release (Cymbalta) finasteride 5 mg tablet 5 mg PO DAILY 02/15/23 10/25/23 tamsulosin 0.4 mg capsule (Flomax) 0.8 mg PO HS 02/15/23 10/25/23 acetaminophen 500 mg capsule 500 mg PO Q8H PRN 02/20/23 10/25/23 carboxymethylcellulose sodium 0.5 1 drp ophthalmic (eye) QID PRN 02/20/23 10/25/23 % eye drops in a dropperette (Refresh Plus) rosuvastatin 20 mg tablet 20 mg PO HS 02/20/23 04/18/24 sennosides 8.6 mg-docusate sodium 2 tab PO DAILY PRN Constipation 02/20/23 10/25/23 50 mg tablet (Stool Softener-Laxative) apixaban 5 mg tablet (Eliquis) 5 mg PO BID 06/03/23 10/25/23 metoprolol tartrate 25 mg tablet 25 mg PO DAILY 06/03/23 10/25/23 ferrous gluconate 324 mg (37.5 mg 324 mg PO DAILY 04/18/24 04/18/24 iron) tablet hydrochlorothiazide 12.5 mg tablet 12.5 mg PO DAILY 04/18/24 04/18/24 pantoprazole 40 mg tablet,delayed 40 mg PO DAILY 04/18/24 04/18/24 release Previous Rx's ?Medication ?Instructions ?Recorded lisinopril 10 mg tablet 10 mg PO DAILY #30 tabs 02/25/23 Allergies Allergy/AdvReac Type Severity Reaction Status Date / Time No Known Drug Allergies Allergy Verified 10/25/23 13:31 Review of Systems Narrative: Pertinent systems reviewed and were negative unless stated in HPI PFSH [facility] Medical History POLST (Physician Orders for Life-Sustaining Treatment) ?Z78.9 - Other specified health status (ICD-10) Fall ?W19.XXXA - Unspecified fall, initial encounter (ICD-10) Hypertension ?I10 - Essential (primary) hypertension (ICD-10) Dementia ?F03.90 - Unspecified dementia, unspecified severity, without behavioral disturbance, psychotic disturbance, mood disturbance, and anxiety (ICD-10) Delirium ?R41.0 - Disorientation, unspecified (ICD-10) History of leukocytosis ?Z86.2 - Personal history of diseases of the blood and blood-forming organs and certain disorders involving the immune mechanism (ICD-10) Spondylolisthesis at L4-L5 level ?M43.16 - Spondylolisthesis, lumbar region (ICD-10) Acute delirium ?R41.0 - Disorientation, unspecified (ICD-10) History of falling ?Z91.81 - History of falling (ICD-10) Gait instability ?R26.81 - Unsteadiness on feet (ICD-10) Muscle weakness ?M62.81 - Muscle weakness (generalized) (ICD-10) Obstructive sleep apnea ?G47.33 - Obstructive sleep apnea (adult) (pediatric) (ICD-10) Tobacco use disorder ?F17.200 - Nicotine dependence, unspecified, uncomplicated (ICD-10) Thyroid nodule ?E04.1 - Nontoxic single thyroid nodule (ICD-10) Shoulder pain ?M25.519 - Pain in unspecified shoulder (ICD-10) Osteoarthritis of knees, bilateral ?M17.0 - Bilateral primary osteoarthritis of knee (ICD-10) Morbid obesity ?E66.01 - Morbid (severe) obesity due to excess calories (ICD-10) Iron deficiency anemia ?D50.9 - Iron deficiency anemia, unspecified (ICD-10) Impaired fasting blood sugar ?R73.01 - Impaired fasting glucose (ICD-10) Benign prostatic hyperplasia with lower urinary tract symptoms ?N40.1 - Benign prostatic hyperplasia with lower urinary tract symptoms (ICD-10) Essential hypertension ?I10 - Essential (primary) hypertension (ICD-10) Gastroesophageal reflux disease ?K21.9 - Gastro-esophageal reflux disease without esophagitis (ICD-10) Major depressive disorder ?F32.9 - Major depressive disorder, single episode, unspecified (ICD-10) Surgical History Status post left knee replacement ?Z96.652 - Presence of left artificial knee joint (ICD-10) S/P cervical spinal fusion ?Z98.1 - Arthrodesis status (ICD-10) Family History Brother Diabetes Heart disease Mother Diabetes Polio Father Polio Social History Narrative: Retired. more than 40 years ago. Lives alone. DNR/DNI resuscitation status. POA: Ludivina (daughter), , and Rubi (daughter), . Living independently until hospitalization earlier this week when he was transferred to [facility]. What is your current living situation?: I presently have a place to live Problems where you live: no known problems Problems where you live details: n/a In the past 12 months, utilities in danger of being shut off: no In past 12 months, lack of transportation kept you from medical appts, meetings, work, or getting things needed for daily living: no In the past 12 mos, have been you worried that your food would run out before you had money to buy more?: never true In the past 12 mos, the food you bought just didn't last and you didn't have money to buy more?: never true Highest level of school completed/degree received: high school graduate Smoking Status: Former smoker Do you use any of these nicotine containing products: None Second hand tobacco smoke exposure: No How often do you have a drink containing alcohol: monthly or less How many standard drinks containing alcohol do you have on a typical day: 1 or 2 How often do you have six or more drinks on one occasion: Never AUDIT-C Alcohol total score: 1 Non-prescribed substance use: denies use Caffeine: Yes How often does anyone, including family, friends and others, physically hurt you: never How often does anyone, including family, friends and others, insult or talk down to you: never How often does anyone, including family, friends and others, threaten you with harm: never How often does anyone, including family, friends and others, scream or curse at you: never service: Yes Exam Narrative: Exam Narrative: Const: Well-nourished, Well-developed, in mild distress Eyes: PERRL, no conjunctival injection, and symmetrical lids HENT: Atraumatic external nose and ears. Moist mucous membranes. CVS: Dorsalis pedis pulse +2 bilaterally, cap refill less than 2 seconds, regular rate rhythm Resp: Clear to auscultation bilaterally, normal respiratory effort MSK:Extremities w/o deformity, Normal Active ROM, tenderness noted to the 5th metatarsal. Skin: Warm, Dry. No rashes or lesions. Neuro: Normal Muscle tone, No focal neurological deficits. Psych: Awake, Alert, & Oriented x3. Appropriate mood and affect. Const: Vital Signs, click to edit/add: Vital Signs - 24 hr 04/01/25 17:45 04/01/25 20:16 Temperature 98.7 F Pulse Rate [Pulse Oximeter] 65 61 Respiratory Rate 18 16 Blood Pressure [Ri ght Upper Arm] 130/78 137/74 Pulse Oximetry 92 92 Oxygen Delivery Me thod Room Air Room Air Course Vital Signs Vital signs: Initial Vital Signs Temperature 98.7 F 04/01/25 17:45 Temperature Source Temporal Artery Scan 04/01/25 17:45 Pulse Rate 65 04/01/25 17:45 Respiratory Rate 18 04/01/25 17:45 Blood Pressure 130/78 04/01/25 17:45 Blood Pressure Mean 95 04/01/25 17:45 Blood Pressure Position Sitting 04/01/25 17:45 Pulse Oximetry 92 04/01/25 17:45 Oxygen Delivery Method Room Air 04/01/25 17:45 Vital Signs Temperature 98.7 F 04/01/25 17:45 Pulse Rate 65 04/01/25 17:45 Respiratory Rate 18 04/01/25 17:45 Blood Pressure 130/78 04/01/25 17:45 Pulse Oximetry 92 04/01/25 17:45 Oxygen Delivery Method Room Air 04/01/25 17:45 Temperature 98.7 F 04/01/25 17:45 Pulse Rate 61 04/01/25 20:16 Respiratory Rate 16 04/01/25 20:16 Blood Pressure 137/74 04/01/25 20:16 Pulse Oximetry 92 04/01/25 20:16 Oxygen Delivery Method Room Air 04/01/25 20:16 MDM - Extremity Injury (Lower) MDM Narrative Medical decision making narrative: Patient is an 84-year-old male presenting for left foot pain. X-ray was ordered. The x-ray does show a minimally displaced fracture of the 5th metatarsal shaft. He is neurovascular intact. No signs of skin tenting. I did speak to orthopedics who recommends either a splint or a boot and nonweightbearing. Patient states his pain is tolerable at this time. Is not requesting any pain medication. Orthopedics recommends follow-up with them next week for surgery on the foot. Him and his daughter are agreeable to this plan. Imaging Data X-ray left foot: Attestation: I have reviewed the pertinent imaging results. Radiologist's impression: Acute, mildly displaced fracture of the 5th metatarsal shaft. No intra-articular extension Dictated by Aashish Baker MD @ 04/01/2025 6:21:35 PM Discharge Plan Discharge Clinical Impression: Closed fracture of fifth metatarsal bone of left foot Qualifiers: Encounter type: initial encounter Fracture alignment: displaced Qualified Code(s): S92.352A - Displaced fracture of fifth metatarsal bone, left foot, initial encounter for closed fracture Patient Disposition: Home w/ Parent or Adult Condition: Stable Instructions: Foot Fracture in Adults (ED) Additional Instructions: Take Tylenol and ibuprofen as needed for pain. Wear the boot at all times. Do not bear any weight on that foot. Make sure to Follow-up with [facility]. Call them at . Ask for either follow-up with Joselin or Dr. Dailey. Likely to have surgery next week on the foot Activity Level: No Weight Bearing Prescriptions: No Action tamsulosin [Flomax] 0.4 mg capsule 0.8 mg PO HS finasteride 5 mg tablet 5 mg PO DAILY Rx Instructions: AM duloxetine [Cymbalta] 60 mg capsule,delayed release(DR/EC) 60 mg PO DAILY Rx Instructions: AM acetaminophen 500 mg capsule 500 mg PO Q8H PRN Patient Comments: Rx Instructions: PRN BID sennosides-docusate sodium [Stool Softener-Laxative] 8.6-50 mg Tablet 2 tab PO DAILY PRN (Reason: Constipation) Rx Instructions: PRN carboxymethylcellulose sodium [Refresh Plus] 0.5 % Dropperette 1 drp ophthalmic (eye) QID PRN Rx Instructions: PRN rosuvastatin 20 mg tablet 20 mg PO HS Rx Instructions: PM lisinopril 10 mg Tablet 10 mg PO DAILY Qty: 30 0RF Eliquis 5 mg tablet 5 mg PO BID metoprolol tartrate 25 mg tablet 25 mg PO DAILY ferrous gluconate 324 mg (37.5 mg iron) tablet 324 mg PO DAILY hydrochlorothiazide 12.5 mg tablet 12.5 mg PO DAILY pantoprazole 40 mg tablet,delayed release (DR/EC) 40 mg PO DAILY Follow Up/Referrals: César Celestin MD [Primary Care Provider, Family Practice] Stand Alone Forms: [id number] Info Instructions
[2025-04-01 20:16] VITALS: BP 137/74; PULSE 61; RESP 16; O2SAT 92
== END 2025-04-01 20:53 | disposition home or self-care (01) ==
PROVIDERS: Emergency Provider Student in an Organized Health Care Education/Training Program
DX: S92.352A Displaced fracture of fifth metatarsal bone, left foot, initial encounter for closed fracture (principal); W19.XXXA Unspecified fall, initial encounter
CPT/HCPCS: 73630; 99283; 99284